=== PATIENT | female | born 1955 | race Caucasian/White ===

== ENCOUNTER → 2017-06-14 11:44 | Outpatient (CLI) | payer OTHER, SELFPAY ==
[2017-06-14 15:22] LABS: Absolute Lymphocyte Count 1.98 X10^3/ul (0.83-4.51); Absolute Neutrophil Count 4.8 X10^3/uL (2.0-7.7); Basophil# 0.03 X10^3/uL; Basophil% 0.4 % (0-1); Eosinophils% 2.6 % (0-5); Hematocrit 39.3 % (37-47); Hemoglobin 13.3 g/dl (12.0-15.0); Lymphocyte # 1.98 X10^3/ul (4.0); Lymphocyte % 25.7 % (19-41); Mean Corp Hgb Conc 33.8 g/gl (32-36); Mean Corpuscular Hgb 29.2 pg (27.0-32.0); Mean Corpuscular Volume 86.2 fL (81-99); Mean Platelet Vol. 10.5 fl (6.2-12.0); Monocyte# 0.72 X10^3/uL; Monocyte% 9.4 % (0-10); Neutrophil # 4.76 X10^3/uL (2.7-7.7); Neutrophil % 61.9 % (47-70); Platelet Count 338 K/mm3 (150-450); RBC Distribution Width CV 12.5 % (11.6-14.6); RBC Distribution Width SD 38.6 fl (35.1-43.9); Red Blood Count 4.56 M/mm3 (4.2-5.4); White Blood Count 7.7 K/mm3 (4.4-11.0)
[2017-06-14 15:23] LABS: POSITIVE COUNT NO; POSITIVE DIFFERENTIAL NO; POSITIVE MORPHOLOGY NO
[2017-06-14 15:47] LABS: AST(SGOT) 14 U/L (15-37); Alanine Aminotransfer ALT/SGPT 20 U/L (13-56); Albumin, Serum 3.6 g/dL (3.2-5.0); Alkaline Phosphatase 53 U/L (45-117); Anion Gap 9 (5-15); BUN 15 mg/dL (7-18); BUN/Creat Ratio 17.7 RATIO (10-20); Chloride 102 mmol/L (98-107); Creatinine, Serum 0.85 mg/dL (0.55-1.02); EST Glomerular Filtration Rate 72 mL/min (>60); Est Glom Filt Rate - Afr Amer 87 mL/min (>60); Globulin 3.5 g/dL (2.2-4.2); Glucose 87 mg/dL (74-106); Potassium 3.8 mmol/L (3.5-5.1); Protein, Total 7.1 g/dL (6.4-8.2); Sodium Level 139 mmol/L (136-145); Thyroid Stim Hormone (TSH) 0.78 uIU/mL (0.358-3.74)
[2017-06-15 08:23] LABS: Hep C Antibodies 0.2 s/co ratio (0.0-0.9)
[2017-06-15 11:58] LABS: Vitamin D,25 Hydroxy 25.9 ng/mL (29.95-100.01)
== END ==
PROVIDERS: Family Provider Family Medicine Geriatric Medicine; PCP Family Medicine Geriatric Medicine; Visit Provider Family Medicine Geriatric Medicine
DX: E55.9 Vitamin D deficiency, unspecified (principal); I10 Essential (primary) hypertension; Z13.89 Encounter for screening for other disorder
CPT/HCPCS: 36415; 80053; 82306; 84443; 85025; 86803

== ENCOUNTER → 2017-06-21 10:57 | Outpatient (CLI) | payer OTHER, SELFPAY ==
--- NOTE | 2017-06-21 11:01 | US_ITS ---
STUDY: THYROID ULTRASOUND REASON FOR EXAM: Female, 62 years old. History of thyroid nodules. TECHNIQUE: Ultrasound evaluation of the thyroid was performed with real-time and static jeter-scale imaging. COMPARISON: Comparison is made with prior study dated December 07, 2014. FINDINGS: RIGHT LOBE: The right lobe of the thyroid gland measures 4.5 cm x 1.8 cm x 1.4 cm. There is a homogeneous echotexture. There is a 5 mm x 5 mm x 5 mm well-defined hypoechoic solid nodule in the midpole of the right lobe. A 4 mm x 3 mm x 2 mm cyst is also seen within the right lobe. LEFT LOBE: The left lobe of the thyroid gland is enlarged and measures 6.2 cm x 3.9 cm x 2.2 cm. There is a heterogeneous echotexture. There is a 3.1 cm x 3.3 cm x 2.6 cm solid and cystic hypoechoic nodule in the midportion of the thyroid. This has increased in size as compared to prior study. An adjacent solid nodule measuring 2.6 cm x 2.0 cm x 2.0 cm is seen. ISTHMUS: The isthmus measures 3.0 mm. The regional lymph nodes are normal. US/Thyroid IMPRESSION: Enlargement of the left lobe of the thyroid with dominant nodules as described. Repeat biopsy is recommended. Electronically Signed: Mt Perdomo MD at 15:26 EDT Tel [phone], Service support ,
--- NOTE | 2017-06-21 12:41 | BI_ITS ---
MAMMOGRAPHY - BILATERAL SCREENING REASON FOR EXAM: Female, 62 years old. Routine annual screening examination. PERTINENT HISTORY: Non-contributory. Remote right excisional breast biopsy. TECHNIQUE: Digital bilateral breast nancy (3D mammographic acquisition) in the CC and MLO projections. 2-D mediolateral oblique (MLO) and craniocaudad (CC) views of both breasts were obtained. CAD: Full Field Digital Mammography with Computer Added Detection was performed. COMPARISON: Comparison is made with prior operative examination dated June 09, 2015. FINDINGS: Breast Composition: There are scattered areas of fibroglandular density. There is a 6.3 mm x 5.6 mm well-defined nodule in the anterior superior lateral portion of the right breast. This may represent a small cyst. This has increased in size as compared to prior study. Correlation with ultrasound is recommended. Stable small benign-appearing bilateral axillary lymph nodes. No other significant abnormalities are identified. BI/SCREENING MAMM (CAD), BILAT IMPRESSION: Mildly enlarged 6.3 mm x 5.6 mm well-defined nodule in the anterior superior lateral portion of her breast as described. Correlation with ultrasound recommended. ASSESSMENT CATEGORY: BIRADS Category 0: Incomplete. Need additional imaging evaluation. A letter regarding these results will be sent to the patient by the facility within 30 days. Approximately 10% of breast cancers are not detected by mammography. A normal mammogram should not delay biopsy of a clinically suspicious abnormality. [id number] Electronically Signed: Mt Perdomo MD at 8:30 EDT Tel [phone], Service support ,
== END ==
PROVIDERS: Family Provider Family Medicine Geriatric Medicine; PCP Family Medicine Geriatric Medicine; Visit Provider Family Medicine Geriatric Medicine
DX: E04.9 Nontoxic goiter, unspecified (principal); Z12.31 Encounter for screening mammogram for malignant neoplasm of breast
CPT/HCPCS: 76536; 77063; 77067

== ENCOUNTER → 2017-07-04 10:54 | Outpatient (CLI) | payer OTHER, SELFPAY ==
--- NOTE | 2017-07-04 10:55 | US_ITS ---
STUDY: ULTRASOUND BREAST - RIGHT REASON FOR EXAM: Female, 62 years old. Abnormal mammography. Mammography performed June 21, 2017 demonstrating a subcentimeter, well-defined nodule in the anterior superior lateral portion of the right breast thought to possibly represent a small cyst. TECHNIQUE: Axial and longitudinal images of the RIGHT breast were performed with a high resolution ultrasound transducer. COMPARISON: None. FINDINGS: RIGHT Breast: There is a 1.35 x 1.9 x 1.2 cm, ovoid, anechoic focus in the 10:00 position identified approximately 2 cm from the nipple. This finding does connect with multiple mildly dilated subareolar ducts. There is a 0.5 x 0.3 x 0.3 cm reniform focus in the 9:00 position 3 cm from the nipple. Most compatible with an intramammary lymph node. US/Breast Limited Unilateral IMPRESSION: 1.4 cm cyst in the 10:00 position 2 cm from the nipple connecting with multiple dilated subareolar ducts that appear in the 9-10 o'clock region. It is unclear as to whether this finding represents the mammographic finding. Therefore, recommend 3 month short interval mammographic and sonographic follow-up to document stability. 5 mm intramammary lymph node in the 9:00 position 3 cm from the nipple. ASSESSMENT CATEGORY: BIRADS Category 3: Probably Benign - Short-Interval Follow-up Suggested. A letter regarding these results will be sent to the patient by the facility within 30 days. Recommendation: Right breast, 3 month short interval mammographic and sonographic follow-up to document stability. Electronically Signed: Max Nicole MD at 13:17 EDT , Service support ,
== END ==
PROVIDERS: Family Provider Family Medicine Geriatric Medicine; PCP Family Medicine Geriatric Medicine; Visit Provider Family Medicine Geriatric Medicine
DX: R92.0 Mammographic microcalcification found on diagnostic imaging of breast (principal)
CPT/HCPCS: 76642

== ENCOUNTER → 2017-07-04 17:54 | Outpatient (CLI) | payer OTHER, SELFPAY ==
--- NOTE | 2017-07-04 14:00 | ASPS_PTH ---
PATIENT: ROMAN RODRIGUEZ LOC: [facility] U#:[id number] AGE/SX: 69/F ROOM: RE07/04/[address]: Dr. Alex Vazquez MD : 1955 BED: DIS: SPEC #: [id number] RECD: 07/04/17 17:29 STATUS: COLLEEN YELENA #: [id number] LILI: 07/04/17 14:[address]: Alex Vazquez DEPT: CYTOLOGY RECD BY: Ross Lr ENTERED: 07/05/17 08:47 SP TYPE: ASPIRATION OTHR DR: Dr. Alfa Kahn MD Tissues: A - Thyroid gland, NOS B - Thyroid gland, NOS Procedures: Pap Stain (control) Special Stain Group II Cytology Other HEADER OPERATION: Left thyroid FNA x2 PRE-OP DIAGNOSIS: Multiple thyroid nodules TISSUE SUBMITTED: A ? Left medial thyroid (6 slides), B ? Left lateral thyroid (8 slides) DIAGNOSIS CYTOLOGY A. Fine needle aspiration, left medial thyroid (smears): Adequate for evaluation. Negative, consistent with benign follicular nodule. B. Fine needle aspiration, left lateral thyroid nodule (smears): Adequate for evaluation. Negative, consistent with benign follicular nodule. AM:souleymane 07/06/17 CYTOLOGY STUDY Slides are reviewed. CYTOLOGY GROSS A - Received are six smears labeled with the patient's name and designated per the requisition as left medial thyroid. Submitted for staining. B - Received are eight smears labeled with the patient's name and designated per the requisition as left lateral thyroid. Submitted for staining. 07/05/17 TC:5 CPT: 04627 x2
== END ==
PROVIDERS: Family Provider Family Medicine Geriatric Medicine; PCP Family Medicine Geriatric Medicine; Visit Provider Surgery
DX: E04.2 Nontoxic multinodular goiter (principal)
CPT/HCPCS: 88161; 88313

== ENCOUNTER → 2017-10-12 09:28 | Outpatient (CLI) | payer OTHER, SELFPAY ==
--- NOTE | 2017-10-12 09:31 | BI_ITS ---
Digital unilateral mammogram right breast with CAD and amandeep Clinical statement: Right breast excisional biopsy in 2008. Abnormal screening mammogram. Right breast mass. Evaluate. Technique: Digital CC and MLO views of the right breast were performed utilizing CAD and amandeep sequences Comparison studies: Mammogram dated 06/21/2017 and 06/09/2015. Findings: There are masses noted in the right breast. They do persist on today's study. Further workup with ultrasound is indicated. CAD images were reviewed. Amandeep images were reviewed. IMPRESSION: BIRADS category A/0 assessment incomplete. There are masses in the right breast. Further workup with ultrasound is recommended. Electronically Signed: Talya Alberto DO at 15:16 EDT Tel , Service support , BI/DIAG MAMM W/CAD, UNILAT
--- NOTE | 2017-10-12 09:32 | US_ITS ---
STUDY: ULTRASOUND BREAST - RIGHT REASON FOR EXAM: Female, 62 years old. ] Masses. Abnormal mammogram. Evaluate. TECHNIQUE: Axial and longitudinal images of the RIGHT breast were performed with a high resolution ultrasound transducer. COMPARISON: Mammograms dated October 12, 2017 and June 21, 2017 FINDINGS: RIGHT Breast: There are tortuous and ectatic ducts in the right breast retroareolar region. There is a benign-appearing hypoechoic mass at the 9:00 position measuring 7 x 5 x 3 mm. This has a central echogenic component and is most compatible with an intramammary lymph node. There is a cyst identified in the retroareolar region at the 9:00 position measuring 18 x 16 x 12 mm. No suspicious solid masses are seen to suggest malignancy. US/Breast Limited Unilateral IMPRESSION: BIRADS category P/3. Probably benign findings. The solid mass is most compatible with an intramammary lymph node however a short-term six-month follow-up ultrasound and mammogram are recommended to document stability. It may be of value to have the cyst aspirated. It appears to possibly be connected to a duct. ASSESSMENT CATEGORY: BIRADS Category 3: Probably Benign - Short-Interval Follow-up Suggested. A letter regarding these results will be sent to the patient by the facility within 30 days. Electronically Signed: Talya Alberto DO at 15:19 EDT Tel , Service support ,
== END ==
PROVIDERS: Family Provider Family Medicine Geriatric Medicine; PCP Family Medicine Geriatric Medicine; Visit Provider Family Medicine Geriatric Medicine
DX: N64.89 Other specified disorders of breast (principal)
CPT/HCPCS: 76642; 77061; 77065; G0279

== ENCOUNTER → 2018-03-22 09:36 | Outpatient (CLI) | payer OTHER, SELFPAY ==
[2018-03-22 12:47] LABS: Absolute Lymphocyte Count 1.67 X10^3/ul (0.83-4.51); Basophil# 0.01 X10^3/uL; Basophil% 0.2 % (0-1); Eosinophil# 0.15 X10^3/uL; Eosinophils% 2.4 % (0-5); Hematocrit 40.8 % (37-47); Hemoglobin 13.6 g/dl (12.0-15.0); Lymphocyte # 1.67 X10^3/ul (4.0); Lymphocyte % 26.5 % (19-41); Mean Corp Hgb Conc 33.3 g/gl (32-36); Mean Corpuscular Hgb 28.8 pg (27.0-32.0); Mean Corpuscular Volume 86.3 fL (81-99); Mean Platelet Vol. 10.1 fl (6.2-12.0); Monocyte# 0.48 X10^3/uL; Monocyte% 7.6 % (0-10); Neutrophil % 63.3 % (47-70); Platelet Count 308 K/mm3 (150-450); Red Blood Count 4.73 M/mm3 (4.2-5.4); White Blood Count 6.3 K/mm3 (4.4-11.0)
[2018-03-22 12:50] LABS: POSITIVE COUNT NO; POSITIVE DIFFERENTIAL NO; POSITIVE MORPHOLOGY NO
[2018-03-22 13:13] LABS: Vitamin D,25 Hydroxy 19.6 ng/mL (29.95-100.01)
[2018-03-22 13:15] LABS: AST(SGOT) 14 U/L (15-37); Alanine Aminotransfer ALT/SGPT 25 U/L (13-56); Albumin, Serum 3.5 g/dL (3.2-5.0); Alkaline Phosphatase 55 U/L (45-117); Anion Gap 11 (5-15); BUN 18 mg/dL (7-18); BUN/Creat Ratio 19.9 RATIO (10-20); Calcium,Total 9.1 mg/dL (8.5-10.1); Chloride 104 mmol/L (98-107); Creatinine, Serum 0.91 mg/dL (0.55-1.02); EST Glomerular Filtration Rate 67 mL/min (>60); Est Glom Filt Rate - Afr Amer 81 mL/min (>60); Globulin 3.5 g/dL (2.2-4.2); Glucose 115 mg/dL (74-106); Potassium 3.8 mmol/L (3.5-5.1); Sodium Level 141 mmol/L (136-145); Thyroid Stim Hormone (TSH) 0.78 uIU/mL (0.358-3.74)
== END ==
PROVIDERS: Family Provider Family Medicine Geriatric Medicine; PCP Family Medicine Geriatric Medicine; Visit Provider Family Medicine Geriatric Medicine
DX: E55.9 Vitamin D deficiency, unspecified (principal); I10 Essential (primary) hypertension
CPT/HCPCS: 36415; 80053; 82306; 84443; 85025

== ENCOUNTER → 2018-04-25 15:58 | Outpatient (CLI) | payer OTHER, SELFPAY ==
[2017-06-26 15:11] VITALS: BMI 33.7
[2018-04-25 17:00] LABS: Absolute Lymphocyte Count 0.92 X10^3/ul (0.83-4.51); Absolute Neutrophil Count 9.2 X10^3/uL (2.0-7.7); Basophil# 0.01 X10^3/uL; Basophil% 0.1 % (0-1); Hematocrit 40.8 % (37-47); Hemoglobin 13.5 g/dl (12.0-15.0); Lymphocyte # 0.92 X10^3/ul (4.0); Lymphocyte % 8.9 % (19-41); Mean Corp Hgb Conc 33.1 g/gl (32-36); Mean Corpuscular Hgb 28.5 pg (27.0-32.0); Mean Corpuscular Volume 86.1 fL (81-99); Monocyte# 0.18 X10^3/uL; Monocyte% 1.7 % (0-10); Neutrophil # 9.16 X10^3/uL (2.7-7.7); Neutrophil % 89.1 % (47-70); POSITIVE COUNT NO; POSITIVE DIFFERENTIAL NO; POSITIVE MORPHOLOGY NO; Platelet Count 315 K/mm3 (150-450); RBC Distribution Width CV 12.9 % (11.6-14.6); RBC Distribution Width SD 40.6 fl (35.1-43.9); Red Blood Count 4.74 M/mm3 (4.2-5.4); White Blood Count 10.3 K/mm3 (4.4-11.0)
--- NOTE | 2018-04-25 17:17 | RAD_ITS ---
STUDY: X-RAY - ABDOMEN/PELVIS REASON FOR EXAM: Female, 62 years old. Abdominal pain and chills TECHNIQUE: Two AP supine views of the abdomen and pelvis. COMPARISON: None. FINDINGS: Normal visualized lung bases. There is an unremarkable bowel gas pattern. There is no demonstrated free abdominal air. The visualized liver, spleen and kidneys are grossly normal in size and morphology. Normal soft tissue structures. There are diffuse degenerative changes of the visualized thoracolumbar spine. RAD/Abdomen Single View IMPRESSION: There is no evidence of ileus or obstruction. There are diffuse degenerative changes of the visualized thoracolumbar spine. Electronically Signed: Cody Holman MD at 17:46 EST , Service support ,
--- NOTE | 2018-04-25 17:25 | RAD_ITS ---
STUDY: X-RAY CHEST REASON FOR EXAM: Female, 62 years old. Chills, no fever TECHNIQUE: PA and lateral views of the chest. COMPARISON: None. FINDINGS: There are streaky fibrotic or atelectatic changes of the right lung base. There is no demonstrated pleural abnormality. Normal size heart. Normal mediastinum and vijay. Normal visualized pulmonary arteries. There are calcified plaques of the aortic arch. There are diffuse degenerative changes of the visualized thoracic spine. Normal visualized ribs, clavicles, and shoulders. There is no demonstrated abnormality of the visualized soft tissue structures of the upper abdomen. RAD/Chest PA and Lateral IMPRESSION: Streaky fibrotic or atelectatic changes of the right lung base. Calcified plaques of the aortic arch. Degenerative changes of the thoracic spine. Electronically Signed: Cody Holman MD at 17:48 EST , Service support ,
[2018-04-25 17:30] LABS: AST(SGOT) 16 U/L (15-37); Alanine Aminotransfer ALT/SGPT 23 U/L (13-56); Albumin, Serum 3.2 g/dL (3.2-5.0); Alkaline Phosphatase 46 U/L (45-117); Anion Gap 10 (5-15); BUN 13 mg/dL (7-18); BUN/Creat Ratio 17.6 RATIO (10-20); Calcium,Total 8.4 mg/dL (8.5-10.1); Chloride 112 mmol/L (98-107); Creatinine, Serum 0.74 mg/dL (0.55-1.02); EST Glomerular Filtration Rate 84 mL/min (>60); Est Glom Filt Rate - Afr Amer 102 mL/min (>60); Globulin 3.1 g/dL (2.2-4.2); Glucose 100 mg/dL (74-106); Protein, Total 6.3 g/dL (6.4-8.2); Sodium Level 144 mmol/L (136-145)
== END ==
LOC: POLAB3 15:58 → RAD 17:14
PROVIDERS: Family Provider Family Medicine Geriatric Medicine; PCP Family Medicine Geriatric Medicine; Referring Provider Family Medicine Geriatric Medicine; Visit Provider Family Medicine Geriatric Medicine
DX: R10.9 Unspecified abdominal pain (principal); R68.83 Chills (without fever)
CPT/HCPCS: 36415; 71046; 74018; 80053; 85025; 87086; 87633

== ENCOUNTER → 2018-04-26 11:14 | Outpatient (CLI) | payer OTHER, SELFPAY ==
[2017-06-26 15:11] VITALS: BMI 33.7
== END ==
PROVIDERS: Family Provider Family Medicine Geriatric Medicine; PCP Family Medicine Geriatric Medicine; Visit Provider Family Medicine Geriatric Medicine
DX: R19.7 Diarrhea, unspecified (principal)
CPT/HCPCS: 82274; 83630; 87506

== ENCOUNTER → 2018-11-07 | Outpatient (CLI) | payer OTHER, SELFPAY ==
--- NOTE | 2018-11-07 12:32 | BI_ITS ---
MAMMOGRAPHY - BILATERAL SCREENING REASON FOR EXAM: Female, 63 years old. Routine annual screening examination. PERTINENT HISTORY: Non-contributory. Remote right excisional breast biopsy. TECHNIQUE: Digital bilateral breast uri (3D mammographic acquisition) in the CC and MLO projections. 2-D mediolateral oblique (MLO) and craniocaudad (CC) views of both breasts were obtained. CAD: Full Field Digital Mammography with Computer Added Detection was performed. COMPARISON: Comparison is made with prior mammogram dated June 21, 2017 and October 12, 2017. FINDINGS: Breast Composition: The breasts are heterogeneously dense, which may obscure small masses. There are no dominant masses or suspicious calcifications. Stable 4.3 mm defined nodule in the superior lateral retroareolar region of the right breast. This is unchanged. No other significant abnormalities are identified. There has been no significant change since the prior study. BI/SCREEN MAMM (CAD) W/URI BILAT IMPRESSION: Stable bilateral screening mammogram. Yearly follow-up mammogram recommended. (A) ASSESSMENT CATEGORY: BIRADS Category 2: Benign. A letter regarding these results will be sent to the patient by the facility within 30 days. Approximately 10% of breast cancers are not detected by mammography. A normal mammogram should not delay biopsy of a clinically suspicious abnormality. [id number] Electronically Signed: Mt Perdomo, at 13:24 EDT , Service support ,
== END | disposition home or self-care (01) ==
LOC: OPBI 12:30
PROVIDERS: Family Provider Family Medicine; PCP Family Medicine; Referring Provider Family Medicine; Visit Provider Family Medicine
DX: Z12.31 Encounter for screening mammogram for malignant neoplasm of breast (principal)
CPT/HCPCS: 77063; 77067

== ENCOUNTER → 2019-09-04 11:10 | Outpatient (CLI) | payer OTHER, SELFPAY ==
[2019-09-04 15:13] LABS: Absolute Neutrophil Count 5.4 X10^3/uL (2.0-7.7); Basophil# 0.03 X10^3/uL; Basophil% 0.4 % (0-1); Eosinophil# 0.23 X10^3/uL; Eosinophils% 2.7 % (0-5); Hematocrit 40.4 % (37-47); Hemoglobin 13.4 g/dL (12.0-15.0); Lymphocyte % 24.5 % (19-41); Mean Corp Hgb Conc 33.2 g/dL (32-36); Mean Corpuscular Hgb 29.3 pg (27.0-32.0); Mean Corpuscular Volume 88.4 fL (81-99); Mean Platelet Vol. 9.8 fl (6.2-12.0); Monocyte# 0.77 X10^3/uL; NRBC Flagged by Analyzer 0 % (0-5); Platelet Count 364 K/mm3 (150-450); RBC Distribution Width CV 13.1 % (11.6-14.6); RBC Distribution Width SD 41.6 fl (35.1-43.9); Red Blood Count 4.57 M/mm3 (4.2-5.4); White Blood Count 8.6 K/mm3 (4.4-11.0)
[2019-09-04 15:39] LABS: Vitamin D,25 Hydroxy 19.8 ng/mL
[2019-09-04 15:57] LABS: ALB/GLOB Ratio 0.9 RATIO (0.9-2.4); AST(SGOT) 19 U/L (15-37); Alanine Aminotransfer ALT/SGPT 35 U/L (13-56); Albumin, Serum 3.7 g/dL (3.2-5.0); Alkaline Phosphatase 72 U/L (45-117); Anion Gap 9 (5-15); BUN 23 mg/dL (7-18); BUN/Creat Ratio 27.2 RATIO (10-20); Calcium,Total 9.5 mg/dL (8.5-10.1); Chloride 101 mmol/L (98-107); Creatinine, Serum 0.85 mg/dL (0.55-1.02); EST Glomerular Filtration Rate 72 mL/min (>60); Est Glom Filt Rate - Afr Amer 87 mL/min (>60); Globulin 3.9 g/dL (2.2-4.2); Glucose 85 mg/dL (74-106); Magnesium 1.8 mg/dL (1.6-2.6); Potassium 3.8 mmol/L (3.5-5.1); Protein, Total 7.6 g/dL (6.4-8.2); Sodium Level 138 mmol/L (136-145); Thyroid Stim Hormone (TSH) 0.97 uIU/mL (0.358-3.74)
[2019-09-04 17:14] LABS: Hemoglobin A1c 5.7 % (3.8-5.6)
== END ==
PROVIDERS: PCP Family Medicine; Visit Provider Family Medicine
DX: R51 Headache (principal); I10 Essential (primary) hypertension; R63.5 Abnormal weight gain
CPT/HCPCS: 36415; 80053; 82306; 83036; 83735; 84443; 85025

== ENCOUNTER → 2019-10-23 14:57 | Outpatient (CLI) | payer OTHER, SELFPAY ==
[2019-10-23 17:10] LABS: Vitamin D,25 Hydroxy 25.7 ng/mL
[2019-10-28 15:26] LABS: HPV Reflexed? NOT INDICATED
== END ==
PROVIDERS: PCP Family Medicine; Visit Provider Family Medicine
DX: Z01.419 Encounter for gynecological examination (general) (routine) without abnormal findings (principal); E55.9 Vitamin D deficiency, unspecified
CPT/HCPCS: 36415; 82306; 88175; G0145

== ENCOUNTER → 2019-11-27 10:54 | Outpatient (CLI) | payer OTHER, SELFPAY ==
--- NOTE | 2019-11-27 10:55 | BI_ITS ---
MAMMOGRAPHY - BILATERAL SCREENING REASON FOR EXAM: Female, 64 years old. Routine annual screening examination. PERTINENT HISTORY: Non-contributory. Remote right excisional breast biopsy. TECHNIQUE: Digital bilateral breast uri (3D mammographic acquisition) in the CC and MLO projections. 2-D mediolateral oblique (MLO) and craniocaudad (CC) views of both breasts were obtained. CAD: Full Field Digital Mammography with Computer Added Detection was performed. COMPARISON: Comparison is made with prior study dated 11/07/2018 and 06/21/2017. FINDINGS: Breast Composition: The breasts are heterogeneously dense, which may obscure small masses. There are no dominant masses or suspicious calcifications. Stable 4.3 mm well-defined nodule in the superior lateral retroareolar region of the right breast. No other significant abnormalities are identified. There has been no significant change since the prior study. BI/SCREEN MAMM (CAD) W/URI BILAT IMPRESSION: Stable bilateral screening mammogram. Yearly follow-up mammogram recommended. (A) ASSESSMENT CATEGORY: BIRADS Category 2: Benign. A letter regarding these results will be sent to the patient by the facility within 30 days. Approximately 10% of breast cancers are not detected by mammography. A normal mammogram should not delay biopsy of a clinically suspicious abnormality. [id number] Electronically Signed: Mt Perdomo, at 12:18 EDT , Service support ,
== END ==
PROVIDERS: PCP Family Medicine; Referring Provider Family Medicine; Visit Provider Family Medicine
DX: Z12.31 Encounter for screening mammogram for malignant neoplasm of breast (principal)
CPT/HCPCS: 77063; 77067

== ENCOUNTER → 2020-11-05 09:33 | Outpatient (CLI) | payer MEDICARE, OTHER, SELFPAY ==
--- NOTE | 2020-11-05 09:59 | RAD_ITS ---
STUDY: X-RAY - RIGHT KNEE REASON FOR EXAM: Female, 65 years old. PAIN, DEFORMITY TECHNIQUE: 4 view(s) of the knee. COMPARISON: Comparison is made with prior study dated 02/08/2017. FINDINGS: Normal visualized distal femur. Normal visualized proximal tibia and fibula. Normal proximal tibiofibular articulation. There is severe degenerative arthrosis of the medial femorotibial compartment with severe joint space narrowing. Normal lateral femorotibial compartment. There is mild degenerative arthrosis of the patellofemoral articulation. The soft tissue structures are unremarkable. RAD/Knee 4 or More Views IMPRESSION: Marked degree of joint space narrowing and degenerative changes of the medial compartment of the knee joint. Mild degree of joint space narrowing of the patellofemoral joint. Electronically Signed: Mt Perdomo MD at 10:25 EDT , Service support ,
[2020-11-05 10:33] LABS: Absolute Lymphocyte Count 2.12 X10^3/uL (0.83-4.51); Absolute Neutrophil Count 4.7 X10^3/uL (2.0-7.7); Basophil# 0.05 X10^3/uL; Basophil% 0.6 % (0-1); Eosinophil# 0.25 X10^3/uL; Eosinophils% 3.2 % (0-5); Hematocrit 42.2 % (37-47); Lymphocyte # 2.12 X10^3/ul (0.83-4.51); Lymphocyte % 27.1 % (19-41); Mean Corp Hgb Conc 33.2 g/dL (32-36); Mean Corpuscular Hgb 28.4 pg (27.0-32.0); Mean Corpuscular Volume 85.6 fL (81-99); Mean Platelet Vol. 9.6 fl (6.2-12.0); Monocyte# 0.68 X10^3/uL; Monocyte% 8.7 % (0-10); NRBC Flagged by Analyzer 0 % (0-5); Neutrophil # 4.69 X10^3/uL (2.7-7.7); Neutrophil % 60.1 % (47-70); Platelet Count 360 K/mm3 (150-450); RBC Distribution Width CV 13.1 % (11.6-14.6); RBC Distribution Width SD 41.1 fl (35.1-43.9); Red Blood Count 4.93 M/mm3 (4.2-5.4); White Blood Count 7.8 K/mm3 (4.4-11.0)
[2020-11-05 11:01] LABS: ALB/GLOB Ratio 0.9 RATIO (0.9-2.4); AST(SGOT) 15 U/L (15-37); Alanine Aminotransfer ALT/SGPT 27 U/L (13-56); Albumin, Serum 3.6 g/dL (3.2-5.0); Alkaline Phosphatase 68 U/L (45-117); Anion Gap 3 (5-15); BUN 17 mg/dL (7-18); BUN/Creat Ratio 20.3 RATIO (10-20); Calcium,Total 9.3 mg/dL (8.5-10.1); Chloride 104 mmol/L (98-107); Cholesterol 217 mg/dL (200); Creatinine, Serum 0.84 mg/dL (0.55-1.02); EST Glomerular Filtration Rate 72 mL/min (>60); Est Glom Filt Rate - Afr Amer 88 mL/min (>60); Glucose 102 mg/dL (74-106); High Density Lipoprotein 48 mg/dL; Potassium 4.1 mmol/L (3.5-5.1); Protein, Total 7.6 g/dL (6.4-8.2); Sodium Level 138 mmol/L (136-145); Triglycerides 203 mg/dL; Very Low Density Lipoprotein 41 mg/dL (5-40)
[2020-11-05 11:03] LABS: Hemoglobin A1c 5.8 % (3.8-5.6); Vitamin D,25 Hydroxy 47.2 ng/mL
== END ==
PROVIDERS: PCP Family Medicine; Referring Provider Family Medicine; Visit Provider Family Medicine
DX: M25.561 Pain in right knee (principal); E55.9 Vitamin D deficiency, unspecified; I10 Essential (primary) hypertension; E78.5 Hyperlipidemia, unspecified; R73.01 Impaired fasting glucose
CPT/HCPCS: 36415; 73564; 80053; 80061; 82306; 83036; 85025

== ENCOUNTER 2020-12-28 16:56 | Emergency (ER) | payer MEDICARE, OTHER, SELFPAY ==
[2020-12-28 16:58] VITALS: BP 141/72; PULSE 81; RESP 18; TEMP 36.9; O2SAT 97; BMI 39.1
[2020-12-28 18:11] LABS: Absolute Lymphocyte Count 1.64 X10^3/uL (0.83-4.51); Absolute Neutrophil Count 8.6 X10^3/uL (2.0-7.7); Basophil# 0.04 X10^3/uL; Basophil% 0.3 % (0-1); Eosinophil# 0.19 X10^3/uL; Eosinophils% 1.6 % (0-5); Hematocrit 38.4 % (37-47); Hemoglobin 13.5 g/dL (12.0-15.0); Lymphocyte # 1.64 X10^3/ul (0.83-4.51); Lymphocyte % 14.2 % (19-41); Mean Corp Hgb Conc 35.2 g/dL (32-36); Mean Corpuscular Hgb 29.4 pg (27.0-32.0); Mean Corpuscular Volume 83.7 fL (81-99); Mean Platelet Vol. 9.3 fl (6.2-12.0); Monocyte# 1.01 X10^3/uL; Monocyte% 8.8 % (0-10); NRBC Flagged by Analyzer 0 % (0-5); Neutrophil # 8.61 X10^3/uL (2.7-7.7); Neutrophil % 74.8 % (47-70); Platelet Count 364 K/mm3 (150-450); RBC Distribution Width CV 13.1 % (11.6-14.6); RBC Distribution Width SD 39.8 fl (35.1-43.9); Red Blood Count 4.59 M/mm3 (4.2-5.4); White Blood Count 11.5 K/mm3 (4.4-11.0)
[2020-12-28 18:26] LABS: Bacteria 0 SEEN /hpf (None Seen); Mucous, Urine 0 SEEN /hpf (<or=2+); Red Blood Cells-Urine 0 SEEN /hpf (0-5)
[2020-12-28 18:28] LABS: Color, Urine Yellow (Yellow); Glucose, Dipstick Normal (Normal); Ketone-Dipstick Negative (Negative); Leukocyte Esterase-Dipstick 100 /ul (Negative); Nitrite-Dipstick Negative (Negative); Occult Blood-Urine Negative /ul (Negative); Protein-Dipstick Negative (Negative); Urine Bilirubin Dipstick Negative (Negative); Urine Clarity Clear (Clear); Urine Urobilinogen Normal (Normal); Urine pH 6.5 (5.0 - 8.0)
[2020-12-28 18:29] LABS: Anion Gap 7 (5-15); BUN 11 mg/dL (7-18); BUN/Creat Ratio 12.9 RATIO (10-20); Calcium,Total 8.9 mg/dL (8.5-10.1); Chloride 103 mmol/L (98-107); Creatinine, Serum 0.86 mg/dL (0.55-1.02); EST Glomerular Filtration Rate 71 mL/min (>60); Est Glom Filt Rate - Afr Amer 86 mL/min (>60); Estimated Creatinine Clearance 53.95 ml/min; Glucose 140 mg/dL (74-106); Potassium 3.5 mmol/L (3.5-5.1); Sodium Level 137 mmol/L (136-145)
[2020-12-28 18:38] LABS: Squamous Epithelial Cells - UA 0-5 SEEN /hpf (5-10); White Blood Cells 0-5 SEEN /hpf (0-5)
--- NOTE | 2020-12-28 19:49 | CT_ITS ---
We are attempting to reach an attending provider to discuss findings. An addendum with communication details will be sent when the communication is complete. STUDY: CT ABDOMEN AND PELVIS WITH CONTRAST REASON FOR EXAM: Female, 65 years old. LLQ pain RADIATION DOSAGE (If Supplied By Facility): CTDIvol = ( 18.97 ) mGy, DLP = ( 2178.86 ) mGycm TECHNIQUE: Transaxial images were obtained from the dome of the diaphragm to the symphysis pubis without oral contrast. IV 100mL Isovue-370 was administered. Sagittal and coronal images were reconstructed. Individualized dose optimization techniques were used for this CT. COMPARISON: None. FINDINGS: The visualized lung bases are unremarkable. The visualized portions of the heart are within normal limits. Normal liver. There are multiple gallstones. Normal spleen. Normal pancreas. Normal bilateral adrenal glands. There is 19.4 x 14.3 cm enhancing mass at the anterior aspect of the right kidney. There is central diminished density region with focal calcifications. Normal left kidney. Normal visualized stomach. Normal small intestine. There is diverticulosis, with thickening of the distal descending colon wall, and left lower quadrant pericolonic inflammation changes consistent with acute diverticulitis. There is non-visualization of the appendix. There is atherosclerotic calcification of the abdominal aorta, without a demonstrated aneurysm. Normal inferior vena cava. Normal retroperitoneum. Normal urinary bladder. Normal visualized uterus. There is no free fluid in the abdomen or pelvis. There is a small umbilical hernia containing fat. There are diffuse degenerative changes of the visualized lumbar spine. CT/Abdomen/Pelvis W IV Cont ONLY IMPRESSION: Diverticulitis in the left lower quadrant. No obstruction or abscess. Large mass of the right kidney compatible with neoplasm such as renal cell carcinoma. Multiple gallstones. No biliary dilatation. Electronically Signed: Phong White MD at 21:36 EDT , Service support ,
[2020-12-28] MEDS: Ketorolac 30 MG/ML Syringe IV (20:57)
[2020-12-28] MEDS: 0.9% Normal Saline 1,000 ML 999 ML IV (20:57)
--- NOTE | 2020-12-28 23:02 | EX.ED.DYSGE1 ---
HPI History of Present Illness Chief Complaint: Abd Pain Narrative Narrative: Patient is a 65-year-old female who states over the past 2 to 3 days she has had increasing pain in the left lower abdomen. She does report she had 1 day of loose stool but otherwise denies any diarrhea or constipation. She states that she has had no fevers or chills and she reports her last colonoscopy about 5 years ago did not show any clinically significant finding. She states that with the worsening pain she is concerned she may have an infection and therefore presents for evaluation [facility] Medical History Hemorrhoids Hypertension Nodular thyroid disease Sleep apnea Sleep apnea Thyroid nodule Home Medications ascorbic acid (vitamin C) 500 mg capsule,extended release 500 mg PO QDAY 06/26/17 [History Last Taken Unknown] lisinopril 10 mg tablet 10 mg PO QDAY 06/26/17 [History Last Taken Unknown] omega-3 fatty acids 1,000 mg capsule 2,000 mg PO QDAY cap 06/26/17 [History Last Taken Unknown] amoxicillin-pot clavulanate [Augmentin] 1 tab PO BID #20 tab 12/28/20 [Rx Last Taken Unknown] cholecalciferol (vitamin D3) [Vitamin D3] 25 mcg PO DAILY 12/28/20 [History Last Taken Unknown] hydrocodone-acetaminophen 1 tab PO Q6H PRN 3 Days #12 tab 12/28/20 [Rx Last Taken Unknown] ondansetron HCl [Zofran] 4 mg PO Q8H PRN #21 tab 12/28/20 [Rx Last Taken Unknown] Allergy/AdvReac Type Severity Reaction Status Date / Time No Known Allergies Allergy Verified 12/28/20 16:57 Family History Mother Colon cancer Hypertension Father Diabetes Surgical History history excision right breast lump S/P thyroid biopsy Social History (Updated 07/04/17 @ 14:[address] Alex Vazquez MD) Smoking Status: Never smoker alcohol intake: never substance use type: does not use ROS ROS ED Constitutional Constitutional ED: Denies chills or fever(s) ENT ENT ED: Denies sore throat Cardiovascular Cardiovascular: Denies chest pain Respiratory/Chest Respiratory/Chest: Denies cough or dyspnea Gastrointestinal Gastrointestinal: Reports abdominal pain and diarrhea; Denies nausea or vomiting Genitourinary Genitourinary ED: Denies dysuria Musculoskeletal Musculoskeletal: Denies myalgias Integumentary Denies rash Neurologic Neurologic: Denies headache(s) Hematologic/Lymphatic Hematologic/Lymphatic: Denies easy bleeding or easy bruising EXAM Physical Exam Const Vital Signs: 12/28/20 16:58 Temperature 98.4 F Temperature Source Temporal Pulse Rate 81 Respiratory Rate 18 Blood Pressure 141/72 H Blood Pressure Mean 95 Pulse Ox 97 Oxygen Delivery Method Room Air Positive well nourished and well developed General Appearance ED: well developed HEENT Reports moist mucous membranes Eyes PERRL and EOMs intact bilaterally Neck supple Resp normal respiratory effort and clear to auscultation bilaterally Cardio regular rate and regular rhythm GI non-distended GI Narrative: Obese soft and nondistended with normoactive bowel sounds. There is pain with palpation in the left lower quadrant with slight guarding at the site but no rebound or rigidity. No pulsatile mass Auscultation: normoactive bowel sounds Palpation: soft Back/Spine no CVA tenderness Extremity normal to inspection Neuro oriented x3 and CN's II-XII intact bilaterally Sensorium / Orientation: alert Psych mental status grossly normal Skin no rashes or lesions noted MDM MDM MDM Narrative Medical decision making narrative: Patient presented to the ER afebrile but did have a slight white count and with pain in left lower quadrant there is concern for diverticulitis. A CT was added which did confirm acute diverticulitis without perforation or abscess. However also noticed a large right renal mass concerning for renal cell carcinoma. Patient states she does not have a history of this. Therefore she was notified/informed of the mass and the need to have further testing to assess its cancers possibility. However as she does not have acute kidney injury or signs of infection associated with this she does not need to be admitted and can be discharged and have this work-up done on outpatient basis Lab Data Attestation: I reviewed the patient's lab results. Labs: Laboratory Results - last 24 hr 12/28/20 12/28/20 12/28/20 17:45 17:45 Unknown WBC 11.5 H RBC 4.59 Hgb 13.5 Hct 38.4 MCV 83.7 MCH 29.4 MCHC 35.2 RDW Std Deviation 39.8 RDW Coeff of Heri 13.1 Plt Count 364 MPV 9.3 Immature Gran % (Auto) 0.300 Neut % (Auto) 74.8 H Lymph % (Auto) 14.2 L [place] % (Auto) 8.8 Eos % (Auto) 1.6 Baso % (Auto) 0.3 Absolute Neuts (auto) 8.6 H Absolute Lymphs (auto) 1.64 Nucleated RBC % 0 Sodium 137 Potassium 3.5 Chloride 103 Carbon Dioxide 27.0 Anion Gap 7 BUN 11 Creatinine 0.86 Estim Creat Clear Calc 53.95 Est GFR (MDRD) Af Amer 86 Est GFR (MDRD) Non-Af 71 BUN/Creatinine Ratio 12.9 Glucose 140 H Calcium 8.9 Urine Color Yellow Urine Clarity Clear Urine pH 6.5 Ur Specific [place] 1.010 Urine Protein Negative Urine Glucose (UA) Normal Urine Ketones Negative Urine Occult Blood Negative Urine Nitrite Negative Urine Bilirubin Negative Urine Urobilinogen Normal Ur Leukocyte Esterase 100 H Urine RBC 0 SEEN Urine WBC 0-5 SEEN Ur Squamous Epith Cells 0-5 SEEN Urine Bacteria 0 SEEN Urine Mucus 0 SEEN Radiography Diagnostic Testing: Clinical Impression(s) from Imaging Studies Abdomen/Pelvis CT 12/28/20 19:49 IMPRESSION: Diverticulitis in the left lower quadrant. No obstruction or abscess. Large mass of the right kidney compatible with neoplasm such as renal cell carcinoma. Multiple gallstones. No biliary dilatation. Electronically Signed: Phong White MD at 21:36 EDT , Service support , ADDENDUM: 12/28/20 2200 IMPRESSION: Diverticulitis in the left lower quadrant. No obstruction or abscess. Large mass of the right kidney compatible with neoplasm such as renal cell carcinoma. Multiple gallstones. No biliary dilatation. N.B. : The above Results were Read Back by Phong White MD to Dr. Dejuan Durant MD, and understanding confirmed on 12/28/2020 21:53:55 (ET). Electronically Signed: Phong White MD at 21:36 EDT , Service support , Discharge Plan Triage Chief Complaint: Abd Pain ED Provider: Dejuan Durant Dx/Rx/DC Orders Clinical Impression: Acute diverticulitis, Renal mass, right Instructions: What Is Kidney (Renal) Cancer?, ED Diverticulitis Prescriptions: New amoxicillin-pot clavulanate [Augmentin] 875-125 mg tablet 1 tab PO BID Qty: 20 RF: 0 ondansetron HCl [Zofran] 4 mg tablet 4 mg PO Q8H PRN (Reason: nausea and vomiting) Qty: 21 RF: 0 hydrocodone-acetaminophen 5-325 mg tablet 1 tab PO Q6H PRN (Reason: pain) 3 Days Qty: 12 RF: 0 No Action lisinopril 10 mg tablet 10 mg PO QDAY RF: 0 omega-3 fatty acids [Fish Oil Concentrate] 1,000 mg capsule 2,000 mg PO QDAY RF: 0 ascorbic acid (vitamin C) ER 500 mg capsule,extended release 500 mg capsule, extended release 500 mg PO QDAY RF: 0 cholecalciferol (vitamin D3) [Vitamin D3] 25 mcg (1,000 unit) Tablet 25 mcg PO DAILY RF: 0 Primary Care Provider: Nellie Rome Referrals: Nellie Rome MD [Primary Care Provider] - Oswaldo Jones MD [STAFF PHYSICIAN] - 1 Week (Renal mass) Disposition Disposition: Home, Self Care
[2020-12-28 23:16] VITALS: BP 123/73; PULSE 74; RESP 16; TEMP 36.2; O2SAT 98
--- NOTE | 2020-12-28 23:44 | ED.RN ---
Waiting on RX for pharm to fill
== END 2020-12-29 00:21 | disposition home or self-care (01) ==
PROVIDERS: Emergency Provider Emergency Medicine; PCP Family Medicine
DX: K57.92 Diverticulitis of intestine, part unspecified, without perforation or abscess without bleeding (principal); N28.89 Other specified disorders of kidney and ureter; E66.9 Obesity, unspecified; Z68.39 Body mass index [BMI] 39.0-39.9, adult; I10 Essential (primary) hypertension; E04.2 Nontoxic multinodular goiter; G47.30 Sleep apnea, unspecified; Z87.19 Personal history of other diseases of the digestive system; Z79.899 Other long term (current) drug therapy
CPT/HCPCS: 74177; 80048; 81001; 85025; 96361; 96365; 99284; J7030; J7050; Q9967; A4216

== ENCOUNTER → 2021-01-13 15:32 | Outpatient (CLI) | payer MEDICARE, OTHER, SELFPAY ==
--- NOTE | 2021-01-13 15:35 | BI_ITS ---
MAMMOGRAPHY - BILATERAL SCREENING REASON FOR EXAM: Female, 65 years old. Routine annual screening examination. PERTINENT HISTORY: Non-contributory. Remote right excisional breast biopsy. TECHNIQUE: Digital bilateral breast uri (3D mammographic acquisition) in the CC and MLO projections. 2-D mediolateral oblique (MLO) and craniocaudad (CC) views of both breasts were obtained. CAD: Full Field Digital Mammography with Computer Added Detection was performed. COMPARISON: Comparison is made with prior examination of 11/27/2019 and 11/07/2018. FINDINGS: Breast Composition: The breasts are heterogeneously dense, which may obscure small masses. There are no dominant masses or suspicious calcifications. Stable 4.4 mm well-defined nodule in the superior lateral retroareolar areolar region of the right breast. Stable benign-appearing bilateral axillary lymph nodes. No other significant abnormalities are identified. There has been no significant change since the prior study. BI/SCRN MAMM (CAD)W/URI BILAT IMPRESSION: Stable bilateral screening mammogram. Yearly follow-up mammogram recommended. (A) ASSESSMENT CATEGORY: BIRADS Category 2: Benign. A letter regarding these results will be sent to the patient by the facility within 30 days. Approximately 10% of breast cancers are not detected by mammography. A normal mammogram should not delay biopsy of a clinically suspicious abnormality. [id number] Electronically Signed: Mt Perdomo MD at 8:35 EDT , Service support ,
--- NOTE | 2021-01-13 15:36 | BD_ITS ---
STUDY: DUAL ENERGY X-RAY ABSORPTIOMETRY / DXA REASON FOR EXAM: Female, 65 years old. Post menopausal. Screening. TECHNIQUE: Bone Mineral Density (BMD) measurements of lumbar spine and bilateral hips were obtained. COMPARISON: None. FINDINGS: Lumbar Spine (L1-L4): g/cm2 (1.203) / T-score (2.0) / Z-score (3.7) Findings are suggestive of normal bone density with a low fracture risk. Left Femur Total: g/cm2 (1.195) / T-score (2.1) / Z-score (3.3) Left Femoral Neck: g/cm2 (1.043) / T-score (1.7) / Z-score (3.3) Right Femur Total: g/cm2 (0.985) / T-score (1.2) / Z-score (0.8) Right Femoral Neck: g/cm2 (1.111) / T-score (1.4) / Z-score (2.6) BD/Dexa Bone Density Study IMPRESSION: The patient is considered normal as outlined below according to World Toi Organization (WHO) criteria with a low fracture risk. Reference Information: The T-score is the number of standard deviations above or below the standard which is normal for young adults at their peak bone mineral density. The World Health Organization (WHO) interprets the T-scores as follows: Above -1 Normal bone density Between -1 and -2.5 Osteopenia Equal to / or below -2.5 Osteoporosis As a practical clinical guideline, osteopenia may be graded as follows: Mild -1 through -1.5 Moderate -1.6 through -2.0 Severe -2.1 through -2.4 The Z-score is the number of standard deviations above or below age-matched controls. A Z-score of less than -1.5 would be considered abnormal. References: 1. NIH Osteoporosis and Related Bone Diseases www osteo.org 2. International Society for Clinical Densitometry www iscd.org 3. National Osteoporosis Foundation www nof.org Electronically Signed: Derik Parikh DO at 19:05 EDT Tel [phone], Service support ,
== END ==
PROVIDERS: PCP Family Medicine; Referring Provider Family Medicine; Visit Provider Family Medicine
DX: Z12.31 Encounter for screening mammogram for malignant neoplasm of breast (principal); M81.0 Age-related osteoporosis without current pathological fracture
CPT/HCPCS: 77063; 77067; 77080

== ENCOUNTER 2021-02-09 05:30 | Inpatient (IN) | payer MEDICARE, OTHER, SELFPAY ==
--- NOTE | 2021-02-07 12:52 | RAD_ITS ---
STUDY: X-RAY CHEST REASON FOR EXAM: Female, 65 years old. RENAL MASS RIGHT -- PREOP TECHNIQUE: PA and lateral views of the chest. COMPARISON: Comparison is made with prior examination dated 04/25/2018. FINDINGS: Hyperinflation. There is no demonstrated pleural abnormality. Normal size heart. Normal mediastinum and vijay. Normal visualized pulmonary arteries. There is atherosclerotic calcification of the aortic arch with tortuosity. There are diffuse degenerative changes of the visualized thoracic spine. Normal visualized ribs, clavicles, and shoulders. There is no demonstrated abnormality of the visualized soft tissue structures of the upper abdomen. RAD/Chest PA and Lateral IMPRESSION: Hypoinflation. The lungs are clear. Electronically Signed: Mt Perdomo MD at 12:41 EST , Service support ,
[2021-02-07 13:46] LABS: Hematocrit 42.2 % (37-47); Hemoglobin 14.2 g/dL (12.0-15.0); Mean Corp Hgb Conc 33.6 g/dL (32-36); Mean Corpuscular Hgb 28.2 pg (27.0-32.0); Mean Corpuscular Volume 83.9 fL (81-99); Mean Platelet Vol. 9.3 fl (6.2-12.0); Platelet Count 417 K/mm3 (150-450); RBC Distribution Width CV 12.5 % (11.6-14.6); Red Blood Count 5.03 M/mm3 (4.2-5.4)
[2021-02-07 14:12] LABS: ALB/GLOB Ratio 0.9 RATIO (0.9-2.4); AST(SGOT) 14 U/L (15-37); Alanine Aminotransfer ALT/SGPT 21 U/L (13-56); Albumin, Serum 3.7 g/dL (3.2-5.0); Alkaline Phosphatase 59 U/L (45-117); Anion Gap 8 (5-15); BUN 18 mg/dL (7-18); BUN/Creat Ratio 20.7 RATIO (10-20); Calcium,Total 9.7 mg/dL (8.5-10.1); Chloride 101 mmol/L (98-107); Creatinine, Serum 0.87 mg/dL (0.55-1.02); EST Glomerular Filtration Rate 70 mL/min (>60); Est Glom Filt Rate - Afr Amer 84 mL/min (>60); Glucose 101 mg/dL (74-106); Potassium 3.6 mmol/L (3.5-5.1); Protein, Total 7.7 g/dL (6.4-8.2); Sodium Level 136 mmol/L (136-145)
[2021-02-09] VITALS (19 sets, daily range): BP systolic 86–133; BP diastolic 49–76; PULSE 52–82; RESP 16–18; TEMP 35.9–36.9; O2SAT 93–100; BMI 38.2
[2021-02-09] MEDS: Lactated Ringers 1,000 ML 15 ML IV ×6 (06:32→12:30)
--- NOTE | 2021-02-09 07:30 | KI_PTH ---
PATIENT: ROMAN RODRIGUEZ LOC: MS3 U#:[id number] AGE/SX: 65/F ROOM: AK311 RE02/09/[address]: Dr. Oswaldo Jones MD : 1955 BED: 1 DIS: 02/12/2021 SPEC #: [id number] RECD: 02/09/21 10:50 STATUS: COLLEEN KIRK #: [id number] LILI: 02/09/21 07:[address]: Oswaldo Jones DEPT: SURGICAL PATHOLOGY RECD BY: Bernice Ann ENTERED: 02/09/21 11:14 SP TYPE: KIDNEY BX OTHR DR: Dr. 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 Please see cancer summary in the comment section. SJ:rg 02/11/2021 COMMENT KIDNEY CANCER SUMMARY Procedure ? radical nephrectomy Specimen laterality ? right Tumor site ? entire kidney Tumor size ? 17 x 13 x 13 cm Histologic type ? chromophobe renal cell carcinoma Sarcomatoid features ? not identified Rhabdoid features - not identified Histologic grade - grade 2 Tumor necrosis - not identified Tumor extension ? tumor limited to kidney Margins ? margin uninvolved by invasive carcinoma Lymphvascular invasion - not identified Regional lymph nodes ? no lymph nodes submitted or found. Non-neoplastic kidney ? mild interstitial chronic inflammation. PATHOLOGIC STAGE: pT2b Nx Mx The above summary is in compliance with College of [place] [employer] (CAP) Cancer Protocols Checklist and [place] Joint Committee on Cancer (AJCC), Staging Manual, 8th Ed. MICROSCOPIC DESCRIPTION Slides are reviewed. GROSS DESCRIPTION Received in fixative is one container labeled with the patient's name and designated right kidney and mass. The specimen consists of a right kidney containing a mass and is surrounded by an irregular envelope of fibroadipose tissue. Neoplasm does not extend into the perirenal fat which measures up to 2 cm in thickness and is not present at the soft tissue line of the specimen. The specimen weighs 1720 gm and measures 21 x 19 x 13] cm. The mass involves almost 90% of the kidney and measures 17 x 13 x 13 cm. Dissection of the renal veins, particularly those draining the area of the mass does not show intravascular presence of neoplasm. On section, the tumorous mass is multinodular and composed of lennon-white solid tumor mass with focal yellowish area. Areas of hemorrhage, necrosis or softening are not seen. The tumor does not invade into pelviocalyceal system and renal sinus. The tumor is sharply demarcated from the renal parenchyma which appears unremarkable. Satellite nodules of tumor are not present in the renal tissue. The adrenal gland is not present. A 4 cm segment of attached ureter is noted which is essentially unremarkable. Sections of perirenal adipose tissue and renal sinus area do not reveal any obviously enlarged lymph nodes. / SJ:souleymane 02/09/21 Ornament Maker Hand sections are submitted in 12 cassettes as follows: 1 - ureter and vascular margin, 2??renal sinus tissue, renal pelvis and kidney, 3 - tumor with adjacent renal sinus tissue, 4 - uninvolved kidney, 5 - tumor with adjacent uninvolved renal parenchymal tissue, 6-11 - tumor, 12 - perirenal adipose tissue including inked resection margin. / SJ:souleymane 02/10/21 TC:0 CPT: 46956
[2021-02-09] MEDS: Cefazolin 2 GM in 0.9% Normal Saline 100 ML IV (07:33)
--- NOTE | 2021-02-09 07:43 | HP.PCM_ITS ---
HPI - General General Date of Admission: 02/09/21 HPI Narrative ROMAN RODRIGUEZ, is a 65 F who presents for a right radical nephrectomy she has a very large 20 cm mass on the right kidney very suspicious for tumorous growth there is no signs of metastatic disease Loretta proceed for a right radical nephrectomy. [facility]LY [facility] Medical History (Updated 02/09/21 @ 07:[address] Oswaldo Jones MD) Anxiety Arthritis Back pain CPAP (continuous positive airway pressure) dependence Heartburn Hemorrhoids History of diverticulitis History of pain when walking History of renal disease Hypertension Nodular thyroid disease Non-smoker Shortness of breath on exertion Sleep apnea Thyroid disease Thyroid nodule Wears glasses Home Medications omega-3 fatty acids 1,000 mg capsule 2,000 mg PO QDAY cap 06/26/17 [History Last Taken 02/08/21] Citlalli Rich 1 cap PO/SL DAILY 02/02/21 [History Last Taken 02/08/21] acetaminophen [Tylenol] 650 mg PO Q4H PRN 02/02/21 [History Last Taken Unknown] cholecalciferol (vitamin D3) [Vitamin D3] 125 mcg PO DAILY 02/02/21 [History Last Taken 02/08/21] lisinopril-hydrochlorothiazide 1 tab PO DAILY 02/02/21 [History Last Taken 02/08/21] docusate sodium [Colace] 100 mg PO BID #20 cap 02/09/21 [Rx Last Taken Unknown] oxycodone-acetaminophen 1 tab PO Q4H PRN 7 Days #20 tab 02/09/21 [Rx Last Taken Unknown] Allergy/AdvReac Type Severity Reaction Status Date / Time acetazolamide AdvReac DEPRESSION Verified 02/09/21 06:11 [From Diamox Sequels] duloxetine [From Cymbalta] AdvReac DEPRESSION Verified 02/09/21 06:11 tetracycline AdvReac DEPRESSION Verified 02/09/21 06:11 Family History Mother Colon cancer Hypertension Father Diabetes Surgical History (Updated 02/02/21 @ 11:06 by Solange Hicks) history excision right breast lump Hx of colonoscopy S/P thyroid biopsy Social History (Updated 07/04/17 @ 14:[address] Alex Vazquez MD) Smoking Status: Never smoker alcohol intake: never substance use type: does not use Vital Signs Vital Signs Vital Signs: 02/09/21 06:14 02/09/21 06:16 Temperature 98.4 F Temperature Source Temporal Pulse Rate 76 Respiratory Rate 18 Respiratory Pattern Normal Blood Pressure 133/72 H Blood Pressure Mean 92 Blood Pressure Source Monitor Blood Pressure Position Semi-Fowlers Blood Pressure Location Right Arm Pulse Ox 100 Oxygen Delivery Method Room Air Weight Weight: 94.801 kg Body Mass Index (BMI) 38.2 Results Lab / Micro Data Result Diagrams: 02/07/21 13:14 02/07/21 13:14 Labs: Laboratory Results - last 24 hr 02/07/21 13:16: Blood Type Cancelled, A1 Antigen Typing Cancelled, Rho(D) Type Cancelled, Antibody Screen Cancelled, Crossmatch See Detail Radiology Impression Chest X-Ray 02/07/21 12:52 IMPRESSION: Hypoinflation. The lungs are clear. Electronically Signed: Mt Perdomo MD at 12:41 EST , Service support ,
--- NOTE | 2021-02-09 07:44 | PCM.DC ---
Discharge Instructions Diet Discharge Diet: No restrictions Activity Discharge Activity: Return to Normal Activity and May Not Drive (while taking narcotic pain medications.) Dressing / Incision Call your doctor if you observe: Fever of 101 or Higher Follow Up Care Please Follow Up With: Oswaldo Jones MD When: Call [phone] for an appointment Test Results: Test results from this visit will be discussed in further detail at your follow-up appointment, if applicable. Discharge Plan Admission Admit Date/Time: 02/09/21 05:30 Primary Reason for Your Visit: Right Radical nephrectomy Attending Provider: Oswaldo Jones Primary Care Provider: Nellie Rome Discharge Orders/Prescriptions Prescriptions: New docusate sodium [Colace] 100 mg capsule 100 mg PO BID Qty: 20 RF: 0 oxycodone-acetaminophen 5-325 mg tablet 1 tab PO Q4H PRN (Reason: pain) 7 Days Qty: 20 RF: 0 Continued omega-3 fatty acids [Fish Oil Concentrate] 1,000 mg capsule 2,000 mg PO QDAY RF: 0 lisinopril-hydrochlorothiazide 20-25 mg Tablet 1 tab PO DAILY RF: 0 cholecalciferol (vitamin D3) [Vitamin D3] 125 mcg (5,000 unit) Tablet 125 mcg PO DAILY RF: 0 Citlalli Rich 1 cap PO/SL DAILY RF: 0 acetaminophen [Tylenol] 325 mg Tablet 650 mg PO Q4H PRN (Reason: Pain) RF: 0 Referrals / Follow Up: Nellie Rome MD [Primary Care Provider] - Oswaldo Jones MD [STAFF PHYSICIAN] -
[2021-02-09] MEDS: Bupivacaine Mpf 0.5% 30 ML VIAL (10:00)
--- NOTE | 2021-02-09 10:47 | PCM.OPRPT ---
Report of Operation Date of Procedure: 02/09/21 Pre-Operative Diagnosis: Large right 20 cm mass suspected carcinoma Post-Operative Diagnosis: The same Surgery/Procedure Performed:: Right laparoscopic robotic assisted converted to an open right radical nephrectomy Description of Surgical Findings:: 65-year-old female who was found to have a very large right renal mass about 20 cm in size that was replacing the entire right kidney. Because of this she underwent a CT scan demonstrated the mass no obvious signs of metastatic disease, chest x-ray was clear preoperative imaging was reviewed personally of the CAT scan was reviewed and also the chest x-ray I did not see any lymph nodes. Because of this I recommended that she undergo a robotic laparoscopic nephrectomy but she understands of the very large tumor and may require an open incision. 65-year-old female was taken back to the operating room after smooth induction of general anesthesia she was placed supine on the table Blankenship catheter was placed she was then had a endotracheal intubation performed she was placed laterally on the table full flank she had a very large pendulous abdomen her BMI is extremely high at 38 but she is very short female at only 5 feet 2 inches tall and weighs 94 kg, and she had a very large flaccid abdomen that was hanging on the side of the bed with a just the patient to make sure the abdomen was all on the bed when she was secured on the bed then secured the patient to the bed secured the arm to the side and the abdomen was prepped and draped in usual sterile fashion. I then marked out my site for my camera trocar and used a Veress needle to infiltrate the skin made a small incision of the skin and then in the advanced the Veress needle into the peritoneal cavity and filled the peritoneal cavity with CO2 gas once this was done then I placed my camera trocar then under direct visualization we placed a right arm trocar left arm trocar in the second left arm trocar we then docked the robot the robot and started with the procedure again this was a very large obvious mass that was in the and occupying the entire right side of the abdomen the colon was up against the mass I first released the colon off the mass starting superiorly and working my way inferiorly until the colon was completely released I then used a fourth arm to raise the beginning of the tumor up had to be very careful to make sure that I did not put an excessive pressure in the tumors to cause any damage or rupture to the tumor capsule itself as I was elevating the tumor up the was a large amount of excessive large thin veins covering the entire tumor with any movement whatsoever there is a lot of bleeding from these veins made visualization extremely difficult as I work my way underneath the kidney symptoms such a large mass the anatomy was extremely distorted was coming underneath the kidney and was not the normal typical anatomy given how big the mass was and I work my way underneath the kidney is very difficult to retract the kidney superiorly with the robotic arms I came across the vessel that was pumping that appeared to be some sort of feeding arterial vessel I presumed this was the renal artery this was taken with 2 clips down and one clip up I then came to a point where I suspect that there was a venous drainage from this her renal mass but really could not dissected out because of the amount of bleeding so I had the exceptional children teacher assistant put in the Endo JACKSON vascular staple and we stapled across this to take the vein and then we kept on going superiorly but again the amount of bleeding was fairly copious and made progress and possible also at this point in a controlled fashion I undocked the robot and elected to make an incision to continue with the surgery to sew a converted to an open radical nephrectomy to continue with the case so coming off this most superior trocar made incision in the skin made the incision as big as possible since this was a 20 cm tumor and then dissected the fat and then got to the anterior muscle layer dissected to the anterior muscle layer cauterizing any bleeders as we came through and dissected the second muscle layer and then opened up the peritoneum the other trochars were then removed after we are inside the abdomen we turned off the gas of the robot had been undocked I then placed the Bookwalter for retraction retracted the superior port incision cephalad in the inferior part incision towards the legs and then had to manually retract the liver out of the way and then using both hands I then scooped underneath this large tumor and then kept coming across the attachments of the tumor to the surrounding abdominal wall came into the attachment of the kidney superiorly working my way off the lateral sidewall using electrocautery and clips as it was went along to control bleeders and then I went superiorly and then there was another large vein that we encountered probably branch off the renal vein I had to use a Satinsky to place across this vein and then transected it and then place a suture tie in the vein to control for bleeding then once again below then the continue with dissection and and freed up the entire kidney and then finally was able to pull the large mass out of the large abdominal incision once we took out the mass then all the bleeding stopped we irrigated copiously with about 2 L of tepid water and then we inspected the hilum and inspected the base of the resection site and there was no bleeding from the hilum we had controlled the artery with clips and we controlled the vein with a staple there was no bleeding we irrigated again copiously we then closed the abdominal incision in 2 layers we closed the first layer with a 0 Vicryl just closing the peritoneal layer and the first layer of the muscle as an approximation not a muscle strength layer and then we closed the other 2 layers with a looped PDS #1 in a running fashion we then reapproximated the fat and then we used janette on the skin we then closed the small laparoscopic incisions with subcuticular stitches and then the patient was transferred back flat on the table she was clinically stable her blood loss was about 1 L at the end of the time we took out the kidney but once he got the kidney out there was no more bleeding we did decided not to transfuse her since she was hemodynamically stable but will check a CBC and a BMP in the PACU to make sure she is hemodynamically stable she was extubated and taken to the PACU in good condition the nurses reported that all sponges and needles were accounted for since this was an open case. I was present during the entire case I did have a PARCEL POST DELIVERY exceptional children teacher assistant Herb Padilla during the entire case and needed close some of the incisions at the end of the case. Surgeon: jack Type of Anesthesia: General Drains: blankenship 18 Admit VTE Documentation VTE Present on Admission: No VTE Mechan Device Prophylaxis: SCD's VTE Pharm Prophylaxis ordered?: No
[2021-02-09 11:54] LABS: Hematocrit 32.2 % (37-47); Hemoglobin 10.9 g/dL (12.0-15.0); Mean Corp Hgb Conc 33.9 g/dL (32-36); Mean Corpuscular Hgb 29.4 pg (27.0-32.0); Mean Corpuscular Volume 86.8 fL (81-99); Mean Platelet Vol. 9.6 fl (6.2-12.0); POSITIVE COUNT YES; Platelet Count 363 K/mm3 (150-450); RBC Distribution Width CV 12.5 % (11.6-14.6); RBC Distribution Width SD 40.1 fl (35.1-43.9); Red Blood Count 3.71 M/mm3 (4.2-5.4); White Blood Count 31.4 K/mm3 (4.4-11.0)
[2021-02-09 11:59] LABS: Anion Gap 10 (5-15); BUN 12 mg/dL (7-18); BUN/Creat Ratio 12.7 RATIO (10-20); Calcium,Total 8.7 mg/dL (8.5-10.1); Chloride 104 mmol/L (98-107); Creatinine, Serum 0.95 mg/dL (0.55-1.02); EST Glomerular Filtration Rate 63 mL/min (>60); Est Glom Filt Rate - Afr Amer 76 mL/min (>60); Estimated Creatinine Clearance 46.69 ml/min; Glucose 171 mg/dL (74-106); Potassium 3.8 mmol/L (3.5-5.1); Sodium Level 140 mmol/L (136-145)
[2021-02-09 12:01] LABS: Scan Indicated on CBC? Y/N YES- FLAGS NOTED
[2021-02-09] MEDS: Morphine 2 MG/ML Syringe IV ×3 (14:46→20:04)
[2021-02-09] MEDS: Lactated Ringers 1,000 ML 125 ML IV ×2 (16:13→23:57)
--- NOTE | 2021-02-09 18:58 | PCS.PANDOC ---
PANDEMIC DOCUMENTATION INITIATED: Date: 10/25/2020 Time: 190
[2021-02-10] VITALS (7 sets, daily range): BP systolic 108–143; BP diastolic 56–66; PULSE 73–90; RESP 16–20; TEMP 36.8–37.2; O2SAT 92–98
[2021-02-10] MEDS: Acetaminophen 325 MG Tablet 650 MG PO ×2 (03:12→21:43)
[2021-02-10] MEDS: Lactated Ringers 1,000 ML 15 ML IV (06:46)
[2021-02-10] MEDS: Morphine 2 MG/ML Syringe IV (06:47)
[2021-02-10 06:56] LABS: Hematocrit 25.1 % (37-47); Hemoglobin 8.6 g/dL (12.0-15.0); Mean Corp Hgb Conc 34.3 g/dL (32-36); Mean Corpuscular Hgb 29.1 pg (27.0-32.0); Mean Corpuscular Volume 84.8 fL (81-99); Mean Platelet Vol. 9.7 fl (6.2-12.0); Platelet Count 262 K/mm3 (150-450); RBC Distribution Width CV 12.4 % (11.6-14.6); RBC Distribution Width SD 38.5 fl (35.1-43.9); Red Blood Count 2.96 M/mm3 (4.2-5.4); White Blood Count 11.7 K/mm3 (4.4-11.0)
[2021-02-10 07:14] LABS: Anion Gap 6 (5-15); BUN 11 mg/dL (7-18); BUN/Creat Ratio 9.5 RATIO (10-20); Calcium,Total 8.1 mg/dL (8.5-10.1); Chloride 101 mmol/L (98-107); Creatinine, Serum 1.16 mg/dL (0.55-1.02); EST Glomerular Filtration Rate 50 mL/min (>60); Est Glom Filt Rate - Afr Amer 60 mL/min (>60); Estimated Creatinine Clearance 38.24 ml/min; Glucose 129 mg/dL (74-106); Potassium 3.9 mmol/L (3.5-5.1); Sodium Level 135 mmol/L (136-145)
--- NOTE | 2021-02-10 07:34 | PN.URO_ITS ---
Subjective Subjective 65-year-old female status post a laparoscopic converted to open right radical nephrectomy for a very large 20 cm mass. We did lose about a liter of blood and surgery but her hemoglobin this morning is still stable enough not to require a blood transfusion and also her vitals are stable. Plan to slow down her IV f luids DC [place] advance diet as tolerated and moved to oral pain medicine morphine as needed and hopefully get the patient out of bed and ambulating in the hallways a little bit. Objective Data Objective Data Vital Signs: Vital Signs Temp Pulse Resp BP Pulse Ox 98.2 F 78 16 125/57 H 98 02/10/21 06:09 02/10/21 06:09 02/10/21 06:09 02/10/21 06:09 02/10/21 06:09 Oxygen Flow Rate (L/min) 2 Oxygen Delivery Method Nasal Cannula Weight: 94.801 kg Body Mass Index (BMI) 38.2 Intake & Output: Intake and Output for Last 24 Hours 02/08/21 02/09/21 02/10/21 23:59 23:59 23:59 Intake Total 6531.17 / 6831.17 1200 / 1200 Output Total 360 / 910 1350 / 1350 Balance 6171.17 / 5921.17 -150 / -150 Lab / Micro Data Result Diagrams: 02/10/21 06:20 02/10/21 06:20 Labs: Laboratory Results - last 24 hr 02/09/21 11:41: WBC 31.4 H*, RBC 3.71 L, Hgb 10.9 L, Hct 32.2 L, MCV 86.8, MCH 29.4, MCHC 33.9, RDW Std Deviation 40.1, RDW Coeff of Heri 12.5, Plt Count 363, MPV 9.6, Differential Comment COMMENT, Diff Path Review July02/09/21 11:41: Sodium 140, Potassium 3.8, Chloride 104, Carbon Dioxide 26.0, Anion Gap 10, BUN 12, Creatinine 0.95, Estim Creat Clear Calc 46.69, Est GFR (MDRD) Af Amer 76, Est GFR (MDRD) Non-Af 63, BUN/Creatinine Ratio 12.7, Glucose 171 H, Calcium 8.7 02/10/21 06:20: WBC 11.7 H, RBC 2.96 L, Hgb 8.6 L, Hct 25.1 L, MCV 84.8, MCH 29.1, MCHC 34.3, RDW Std Deviation 38.5, RDW Coeff of Heri 12.4, Plt Count 262, MPV 9.7 02/10/21 06:20: Sodium 135 L, Potassium 3.9, Chloride 101, Carbon Dioxide 28.0, Anion Gap 6, BUN 11, Creatinine 1.16 H, Estim Creat Clear Calc 38.24, Est GFR (MDRD) Af Amer 60, Est GFR (MDRD) Non-Af 50 L, BUN/Creatinine Ratio 9.5 L, Glucose 129 H, Calcium 8.1 L Micro: Microbiology 02/07/21 12:53 Interface Orders SARS-CoV-2 Antigen (Rapid) - Final Physical Exam Const General Appearance: cooperative and well developed HEENT TM's normal bilaterally Neck no JVD Lymph Lymphatic: no lymphadenopathy noted Resp clear to auscultation bilaterally Cardio regular rate GI Palpation: soft Back/Spine no CVA tenderness Assessment & Plan Assessment/Plan (1) History of renal disease:
[2021-02-10 09:46] LABS: Pathologist Review Reviewed
--- NOTE | 2021-02-10 12:00 | CASEMGMT ---
IRON VALENTINE Assessment: Face to Face with pt for initial transition planning/care coordination assessment. RN MEME introduced self and role at [facility], pt voices understanding and consents to assessment. Pt is A/O x4 and answers all questions appropriately at this time. Pt sitting up in chair with at bedside. Pt is in no distress but has a flat affect. Care providers, pharmacy, and demographics verified/updated. Admitting Dx: Lap Robotic Radical Nephrectomy PCP:Latricia Specialists:Karen, uro; anthony Wen Preferred Pharmacy: [facility] Rich Insurance: [facility], MMO Prescription Benefit: yes LW/HPOA: Pt states that she has a LW/DPOA. States her DPOA is her , [place]. Pt is aware that this is not on file at [facility] and she may bring in to be scanned into the chart. LNOK: [place], Living Arrangements: Pt lives with in a split level house with 3 steps to enter without a rail. Pt reports she is I in ADL's and denies concerns at home. Transportation: Pt drives self and denies concerns with transportation. DME/HHC/SNF: Pt has a cane, walker and BSC at home, but typically does not use. Pt also has a CPAP. Pt denies hx of HHC or SNF stays. Pt states no concerns with going home at time of dc. Pt states no further concerns/needs. CM to follow. Advised pt to ask CM if any further question/concerns/needs arise, voices understanding. Pt Goal: Home Plan: Home
--- NOTE | 2021-02-10 12:45 | CASEMGMT ---
Social Work Note SW received referral as pt has flat affect. SW in to speak with pt. Pt's present in room. Pt states that she is doing ok, states she is some pain. Pt appears very soft spoken during conversation. Pt states that she does have history of Anxiety and Depression. Pt states that she see's a counselor through a private practice. Pt states she see's her counselor whenever she needs to. Pt denied any history of suicidal thoughts/plans/ideations. Pt denied any current suicidal thoughts/plans/ideations. Pt denied any additional needs or concerns at this time. Aisha Cadena PLANT PROTECTION SUPERVISOR, PRINTING PLATE CLERK
--- NOTE | 2021-02-10 13:41 | CHAPLAIN ---
Type of Pastoral Visit _x__ Initial Visit ___ Follow-up Visit ___ On-call Visit ___ General Patient Visit ___ Spiritual Assessment ___ Family Conference ___ Bereavement ___ Rapid Response ___ Code Blue ___ Other (describe below) Pastoral Care Referral From _x__ Patient x Family ___ Nurse ___ Physician ___ Ceramic Coater ___ Division Toll Wire Chief ___ Other (describe below) Sacrament/Intervention _x__ Active listening ___ Anointing ___ Orthodoxy ___ Bereavement ___ Communion ___ Glenda exploration ___ ___ Life review _x__ Prayer ___ Reconciliation ___ Sacrament of Sick _x__ Supportive presence ___ Wedding ___ Other (describe below) Pastoral Comments 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
--- NOTE | 2021-02-10 15:13 | NURSING ---
Assisted patient to the bathroom. patient voided but missed the hat. patient ambulated to the hallway and back to the bed. patient states some mild dizziness. pt resting in bed. denies further needs.
[2021-02-11 02:30] VITALS: BP 135/66; PULSE 76; RESP 16; TEMP 36.7; O2SAT 96
[2021-02-11 05:51] LABS: Hematocrit 22.8 % (37-47); Hemoglobin 7.8 g/dL (12.0-15.0)
[2021-02-11] MEDS: Acetaminophen 325 MG Tablet 650 MG PO ×3 (06:44→20:49)
[2021-02-11 08:30] VITALS: BP 133/74; PULSE 78; RESP 16; TEMP 36.8; O2SAT 96
[2021-02-11] MEDS: hydroCHLOROthiazide 25 MG Tablet PO (10:04)
[2021-02-11] MEDS: Lisinopril 20 MG Tablet PO (10:04)
--- NOTE | 2021-02-11 10:18 | PCM.PN.GU ---
Subjective Subjective clinically stable, no transusion need, h/h down will monitor, no signs of bleeding Objective Data Objective Data Vital Signs: Vital Signs Temp Pulse Resp BP Pulse Ox 98.3 F 78 16 133/74 H 96 02/11/21 08:30 02/11/21 08:30 02/11/21 08:30 02/11/21 08:30 02/11/21 08:30 Oxygen Flow Rate (L/min) 2 Oxygen Delivery Method Room Air Weight: 94.801 kg Body Mass Index (BMI) 38.2 Intake & Output: Intake and Output for Last 24 Hours 02/09/21 02/10/21 02/11/21 23:59 23:59 23:59 Intake Total 6531.17 / 6831.17 3750 / 3750 500 / 500 Output Total 360 / 910 1999 / 1999 600 / 600 Balance 6171.17 / 5921.17 1750 / 1750 -100 / -100 Lab / Micro Data Result Diagrams: 02/11/21 05:34 02/10/21 06:20 Labs: Laboratory Results - last 24 hr 02/07/21 13:16: Crossmatch See Detail 02/11/21 05:34: Hgb 7.8 L, Hct 22.8 L Micro: Microbiology 02/07/21 12:53 Interface Orders SARS-CoV-2 Antigen (Rapid) - Final Physical Exam Const alert and oriented x3 General Appearance: cooperative HEENT normocephalic and head/scalp atraumatic Eyes PERRL and EOMs intact bilaterally Neck supple, no JVD and no carotid bruits Resp normal respiratory effort, normal air movement and clear to auscultation bilaterally Cardio regular rate and no murmurs GI normal to inspection, nondistended, normoactive bowel sounds and soft to palpation Extremity normal capillary refill General Extremity: no tenderness to palpation of joints or extremities; Negative for edema Skin no rashes or lesions noted and no wounds General Skin Exam: no breakdown Neuro CN's II-XII intact bilaterally Psych affect normal Appearance: appropriate
[2021-02-11 15:48] VITALS: BP 121/67; PULSE 82; RESP 16; TEMP 37; O2SAT 96
[2021-02-11 22:11] VITALS: BP 129/59; PULSE 78; RESP 16; TEMP 36.8; O2SAT 98
[2021-02-12 04:35] VITALS: BP 146/65; PULSE 73; RESP 16; TEMP 36.7; O2SAT 96
--- NOTE | 2021-02-12 06:27 | PCM.PN.GU ---
Subjective Subjective post op day #3 doing well, adv diet as sascha ambulate. Objective Data Objective Data Vital Signs: Vital Signs Temp Pulse Resp BP Pulse Ox 98.1 F 73 16 146/65 H 96 02/12/21 04:35 02/12/21 04:35 02/12/21 04:35 02/12/21 04:35 02/12/21 04:35 Oxygen Flow Rate (L/min) 2 Oxygen Delivery Method Room Air Weight: 94.801 kg Body Mass Index (BMI) 38.2 Intake & Output: Intake and Output for Last 24 Hours 02/10/21 02/11/21 02/12/21 23:59 23:59 23:59 Intake Total 3750 / 3750 3243.5 / 3243.5 Output Total 1999 Balance 1750 / 1750 1243.5 / 1243.5 Lab / Micro Data Result Diagrams: 02/11/21 05:34 02/10/21 06:20 Micro: Microbiology 02/07/21 12:53 Interface Orders SARS-CoV-2 Antigen (Rapid) - Final Physical Exam Const alert and oriented x3 General Appearance: cooperative HEENT normocephalic and head/scalp atraumatic Eyes PERRL and EOMs intact bilaterally Neck supple, no JVD and no carotid bruits Resp normal respiratory effort, normal air movement and clear to auscultation bilaterally Cardio regular rate and no murmurs GI normal to inspection, nondistended, normoactive bowel sounds and soft to palpation Extremity normal capillary refill General Extremity: no tenderness to palpation of joints or extremities; Negative for edema Skin no rashes or lesions noted and no wounds General Skin Exam: no breakdown Neuro CN's II-XII intact bilaterally Psych affect normal Appearance: appropriate Assessment & Plan Assessment/Plan (1) History of renal disease: PLAN: KIDNEY CANCER SUMMARYProcedure ?radical nephrectomy Specimen laterality ?rightTumor site ?entire kidneyTumor size ?17 x 13 x 13 cmHistologic type ?chromophobe renal cell carcinomaSarcomatoid features ?not identifiedRhabdoid features -not identifiedHistologic grade -grade 2Tumor necrosis -not identifiedTumor extension ?tumor limited to kidneyMargins ?margin uninvolved by invasive carcinomaLymphvascular invasion -not identifiedRegional lymph nodes ?no lymph nodes submitted or found.Non-neoplastic kidney ?mild interstitial chronic inflammation.PATHOLOGIC STAGE: pT2b Nx MxThe above summary is in compliance with [employer] (CAP) Cancer Protocols Checklist and [place] [employer] on Cancer (AJCC), StagingManual, 8th Ed. MICROSCOPIC DESCRIPTIONSlides are reviewed.
[2021-02-12 06:28] LABS: Hemoglobin 7.6 g/dL (12.0-15.0)
--- NOTE | 2021-02-12 06:38 | PCM.DC.SUM ---
Providers Date of Admission: 02/09/21 Primary Care Physician: Dr. Nellie Rome MD Reason For Visit: LAP ROBOTIC RADICAL NEPHRECTOMY Diagnosis Discharge Diagnosis (1) History of renal disease: Status: Acute Code(s): Z87.448 - Personal history of other diseases of urinary system Medications at Discharge Home Medications omega-3 fatty acids 1,000 mg capsule 2,000 mg PO QDAY cap 06/26/17 Citlalli Rich 1 cap PO/SL DAILY 02/02/21 acetaminophen [Tylenol] 650 mg PO Q4H PRN 02/02/21 cholecalciferol (vitamin D3) [Vitamin D3] 125 mcg PO DAILY 02/02/21 lisinopril-hydrochlorothiazide 1 tab PO DAILY 02/02/21 docusate sodium [Colace] 100 mg PO BID #20 cap 02/09/21 oxycodone-acetaminophen 1 tab PO Q4H PRN 7 Days #20 tab 02/09/21 Hospital Course Summary of Care Provided Hospital Course: 65-year-old female was found to have a very large right renal mass she underwent a laparoscopic robotic assisted converted to an open radical nephrectomy because of this such a large mass pathology turned out to be 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 Postop course was relatively unremarkable her vital signs were stable [place] catheter was removed the next day she was ambulating by postoperative day #2 by postoperative day #3 she is passed gas bowel function was normal tolerating regular diet and pain was under control and she will be discharged home with Percocet and Colace and instructions for wound care were given she can shower or dress normal daily activities up and down stairs okay no driving. All this was reviewed with the patient. She will follow-up next week to remove her janette. KIDNEY CANCER SUMMARYProcedure ?radical nephrectomy Specimen laterality ?rightTumor site ?entire kidneyTumor size ?17 x 13 x 13 cmHistologic type ?chromophobe renal cell carcinomaSarcomatoid features ?not identifiedRhabdoid features -not identifiedHistologic grade -grade 2Tumor necrosis -not identifiedTumor extension ?tumor limited to kidneyMargins ?margin uninvolved by invasive carcinomaLymphvascular invasion -not identifiedRegional lymph nodes ?no lymph nodes submitted or found.Non-neoplastic kidney ?mild interstitial chronic inflammation.PATHOLOGIC STAGE: pT2b Nx MxThe above summary is in compliance with [employer] (CAP) Cancer Protocols Checklist and [place] [employer] on Cancer (AJCC), StagingManual, 8th Ed. MICROSCOPIC DESCRIPTIONSlides are reviewed. Physical Exam Narrative Abdomen soft and benign incisions are clean and intact janette are clean and intact she is in no acute distress alert oriented x3 pleasant interactive. Weight / BMI Weight Weight: 94.801 kg Body Mass Index (BMI) 38.2 ABG / Lab / Microbiology Data Result Diagrams: 02/12/21 06:13 02/10/21 06:20 Laboratory: Laboratory Results - last 24 hr 02/12/21 06:13: Hgb 7.6 L, Hct 22.0 L Microbiology: Microbiology 02/07/21 12:53 Interface Orders SARS-CoV-2 Antigen (Rapid) - Final D/C Instructions Discharge Diet: No restrictions Call your doctor if you observe: Fever of 101 or Higher Please Follow Up With: Oswaldo Jones MD When: Call [phone] for an appointment Meaningful Use Info Meaningful Use Diagnoses (Choose all that apply): None applicable Discharge Plan Admission Admit Date/Time: 02/09/21 05:30 Primary Reason for Your Visit: Right Radical nephrectomy Attending Provider: Oswaldo Jones Primary Care Provider: Nellie Rome Discharge Orders/Prescriptions Prescriptions: New docusate sodium [Colace] 100 mg capsule 100 mg PO BID Qty: 20 RF: 0 oxycodone-acetaminophen 5-325 mg tablet 1 tab PO Q4H PRN (Reason: pain) 7 Days Qty: 20 RF: 0 Continued omega-3 fatty acids [Fish Oil Concentrate] 1,000 mg capsule 2,000 mg PO QDAY RF: 0 lisinopril-hydrochlorothiazide 20-25 mg Tablet 1 tab PO DAILY RF: 0 cholecalciferol (vitamin D3) [Vitamin D3] 125 mcg (5,000 unit) Tablet 125 mcg PO DAILY RF: 0 Citlalli Rich 1 cap PO/SL DAILY RF: 0 acetaminophen [Tylenol] 325 mg Tablet 650 mg PO Q4H PRN (Reason: Pain) RF: 0 Referrals / Follow Up: Nellie Rome MD [Primary Care Provider] - Oswaldo Jones MD [STAFF PHYSICIAN] - Disposition Discharge Orders: Discharge Patient (Routine); Ordered 02/12/21 Ordered By: Dr. Oswaldo Jones
[2021-02-12] MEDS: Acetaminophen 325 MG Tablet 650 MG PO (08:08)
[2021-02-12] MEDS: Lisinopril 20 MG Tablet PO (08:08)
[2021-02-12] MEDS: hydroCHLOROthiazide 25 MG Tablet PO (08:08)
[2021-02-12 08:11] VITALS: BP 138/73; PULSE 82; RESP 16; TEMP 36.7; O2SAT 96
== END 2021-02-12 10:25 | disposition home or self-care (01) | DRG 657 ==
LOC: ACINP 07:43 → MS3 15:07
PROVIDERS: Admitting Provider Urology; PCP Family Medicine; Referring Provider Urology; Visit Provider Urology
PROC: 0TT00ZZ Resection of Right Kidney, Open Approach (ICD-10-PCS; CPT 50546; principal; 2021-02-09 07:10)
DX: C64.1 Malignant neoplasm of right kidney, except renal pelvis (principal); D62 Acute posthemorrhagic anemia; Z53.31 Laparoscopic surgical procedure converted to open procedure; I10 Essential (primary) hypertension; M19.90 Unspecified osteoarthritis, unspecified site; G47.30 Sleep apnea, unspecified; Z87.19 Personal history of other diseases of the digestive system; Z79.899 Other long term (current) drug therapy
CPT/HCPCS: 36415; 71046; 80048; 80053; 85014; 85018; 85027; 86850; 86900; 86901; 86920; 87426; 88305; 93005; 97802; C9803; J7120; A4216; J2405

== ENCOUNTER → 2021-03-07 14:04 | Outpatient (CLI) | payer MEDICARE, OTHER, SELFPAY ==
--- NOTE | 2021-03-07 14:14 | US_ITS ---
STUDY: THYROID ULTRASOUND REASON FOR EXAM: Female, 65 years old. FOLLOW UP NODULES -- previous us 06/21/17 TECHNIQUE: Ultrasound evaluation of the thyroid was performed with real-time and static jeter-scale imaging. COMPARISON: 06/21/2017 ultrasound, 12/21/2014 biopsy FINDINGS: RIGHT LOBE: The right lobe of the thyroid gland measures 4.5 x 1.9 x 1.3 cm. There is a homogeneous echotexture. There are multiple solid and cystic hypoechoic nodules of the right thyroid lobe measuring up to 7 mm one of which demonstrates coarse shadowing calcification. These have not changed significantly since the prior study accounting for variations in measuring technique. No new or enlarging pulmonary nodule. LEFT LOBE: The left lobe of the thyroid gland measures 6.7 x 4.2 x 3.1 cm. There is a homogeneous echotexture. There are 2 solid nodules of the left thyroid lobe with small areas of cystic transformation. The largest nodule measures 3.6 x 3.4 x 2.7 cm, although is unlikely to be significantly changed accounting for significant variation in measuring technique between the 2 studies. Subjectively, there has not been significant change in size when comparing image 85 of the current study with image 70 of the prior study. The second nodule currently measures up to 2.7 x 1.9 x 1.9 cm, which is not significantly changed since prior study. ISTHMUS: The isthmus measures 3.6 mm. The regional lymph nodes are normal. US/Thyroid IMPRESSION: 1. Since 06/21/2014, no significant interval change. Bilateral (left larger than right) thyroid nodules. No new or enlarging thyroid nodule. Electronically Signed: Sebastian Barnes MD (Brooks) at 9:43 EST , Service support ,
== END ==
PROVIDERS: PCP Family Medicine; Referring Provider Family Medicine; Visit Provider Family Medicine
DX: E04.2 Nontoxic multinodular goiter (principal)
CPT/HCPCS: 76536

== ENCOUNTER → 2021-09-01 | Outpatient (CLI) | payer MEDICARE, OTHER, SELFPAY ==
[2021-09-01 17:00] LABS: Absolute Lymphocyte Count 2.73 X10^3/uL (0.83-4.51); Absolute Neutrophil Count 9.1 X10^3/uL (2.0-7.7); Basophil# 0.03 X10^3/uL; Basophil% 0.2 % (0-1); Eosinophil# 0.19 X10^3/uL; Eosinophils% 1.5 % (0-5); Hematocrit 34.9 % (37-47); Hemoglobin 11.3 g/dL (12.0-15.0); Lymphocyte # 2.73 X10^3/ul (0.83-4.51); Mean Corp Hgb Conc 32.4 g/dL (32-36); Mean Corpuscular Hgb 27.3 pg (27.0-32.0); Mean Corpuscular Volume 84.3 fL (81-99); Monocyte# 0.95 X10^3/uL; Monocyte% 7.3 % (0-10); NRBC Flagged by Analyzer 0 % (0-5); Neutrophil # 9.08 X10^3/uL (2.7-7.7); Neutrophil % 69.6 % (47-70); Platelet Count 496 K/mm3 (150-450); RBC Distribution Width CV 13.6 % (11.6-14.6); RBC Distribution Width SD 42.3 fl (35.1-43.9); Red Blood Count 4.14 M/mm3 (4.2-5.4)
== END | disposition home or self-care (01) ==
LOC: LAB 16:50
PROVIDERS: PCP Family Medicine; Referring Provider Family Medicine; Visit Provider Family Medicine
DX: K92.2 Gastrointestinal hemorrhage, unspecified (principal)
CPT/HCPCS: 36415; 85025

== ENCOUNTER → 2021-09-08 | Outpatient (CLI) | payer MEDICARE, OTHER, SELFPAY ==
--- NOTE | 2021-09-08 11:29 | US_ITS ---
STUDY: ABDOMINAL ULTRASOUND - RIGHT UPPER QUADRANT REASON FOR VISIT: Female, 66 years old abdominal pain TECHNIQUE: Ultrasound evaluation of the right upper quadrant was performed with real-time and static jeter-scale imaging. TECHNICAL QUALITY: Adequate. COMPARISON: None. FINDINGS: Liver: The liver measures 15.2 cm. There is normal echogenicity of the liver. The bile ducts are within normal limits. There is hepatic color flow. The direction of portal flow is hepatopetal. There is no demonstrated mass lesion. Gallbladder: Normal distended gallbladder. The gallbladder wall measures 2 mm. There is a negative sonographic Kapoor''s sign. There is no pericholecystic fluid. There are multiple echogenic structures within the gallbladder, consistent with multiple gallstones. Common Bile Duct (C.B.D.): The common bile duct measures 2 mm. Pancreas: Normal size of the head, body and tail of the pancreas. There is normal echogenicity of the pancreas. There is no demonstrated pancreatic mass or cyst. Right Kidney: Status post right nephrectomy. US/Gallbladder IMPRESSION: Cholelithiasis. Electronically Signed: Michel Lares MD at 12:29 EDT ,
--- NOTE | 2021-09-08 11:46 | CT_ITS ---
STUDY: CT CHEST, ABDOMEN T PELVIS WITH CONTRAST REASON FOR EXAM: Female, 66 years old. MALIGNANT NEOPLASM OF RIGHT KIDNEY, EXCEPT RENAL PELVIS RADIATION DOSAGE (If Supplied By Facility): CTDIvol = ( 20.42 ) mGy, DLP = ( 2056.47 ) mGycm TECHNIQUE: Transaxial imaging was performed following intravenous administration of Oral and amp;amp; IV Gastrografin and amp;amp; 75mL Isovue-300. Individualized dose optimization techniques were used for this CT. COMPARISON: 12/28/2020 FINDINGS: CHEST Larger nodule the left lobe of the thyroid gland with substernal extension. The lungs are normal. There is no demonstrated pleural abnormality. Normal heart and pericardium. Normal mediastinum. Normal hilar regions. Normal unenhanced pulmonary arteries. Normal aorta arch and descending thoracic aorta. There are multi-level degenerative changes of the thoracic spine. There is no demonstrated abnormality of the visualized upper abdomen. ABDOMEN The visualized lung bases are unremarkable. The visualized portions of the heart are within normal limits. Normal liver. There are multiple gallstones. Normal spleen. Normal pancreas. Normal bilateral adrenal glands. Status post right nephrectomy. No residual or recurrent mass in the renal fossa. Normal left kidney. Normal visualized stomach. Normal small intestine. There are multiple colonic diverticula consistent with diverticulosis. 5 cm lipoma of the mid transverse colon with focal circumferential wall thickening just proximal to the lipoma. Correlation with endoscopy would be useful to exclude a malignant mass. The appendix is visualized and appears normal. There is diffuse atherosclerotic calcification of the abdominal aorta, without a demonstrated aneurysm. Normal inferior vena cava. Normal retroperitoneum. Normal abdominal wall. Normal osseous structures. PELVIS Normal urinary bladder. Normal visualized small intestine. Normal visualized colon. There is no pelvic fluid. There is no pelvic lymphadenopathy or mass lesion. Normal visualized pelvic arteries. Normal abdominal wall. Normal osseous structures. CT/CT Chest, Abd, Pel w/Contrast IMPRESSION: 1. Status post right nephrectomy without evidence of residual, recurrent, or metastatic renal cell carcinoma. 2. Cholelithiasis. 3. 5 cm lipoma of the mid transverse colon with circumferential wall thickening proximal to the lipoma which may represent intussusception or malignant soft tissue mass. Correlation with endoscopy would be useful. 4. Large nodule the left lobe of the thyroid gland with substernal extension. Electronically Signed: Michel Lares MD at 17:50 EDT ,
== END | disposition home or self-care (01) ==
LOC: CT 11:29
PROVIDERS: PCP Family Medicine; Visit Provider Urology
DX: C64.1 Malignant neoplasm of right kidney, except renal pelvis (principal); R07.9 Chest pain, unspecified; R10.9 Unspecified abdominal pain
CPT/HCPCS: 71260; 74177; 76705; Q9967

== ENCOUNTER 2021-09-13 09:09 | Day surgery (SDC) | payer MEDICARE, OTHER, SELFPAY ==
--- NOTE | 2021-09-08 11:44 | EKG12_ITS ---
Test Reason : PRE PROCEDURE Blood Pressure : / mmHG Vent. Rate : 067 BPM Atrial Rate : 067 BPM P-R Int : 160 ms QRS Dur : 118 ms QT Int : 404 ms P-R-T Axes : 056 -56 061 degrees QTc Int : 426 ms Normal sinus rhythm Left anterior fascicular block Left ventricular hypertrophy with QRS widening Abnormal ECG Confirmed by EWA UMAÑA, SALAS ([id number]), supervising editor trailer SUMIT ROLLINS ([id number]) on 09/13/2021 9:38:12 AM Referred By: Alex Vazquez Confirmed By:KATHY MCNEIL MD
[2021-09-13] VITALS (11 sets, daily range): BP systolic 76–133; BP diastolic 47–63; PULSE 58–74; RESP 14–18; TEMP 36–36.5; O2SAT 96–100; BMI 37.0
[2021-09-13] MEDS: Lactated Ringers 1,000 ML 15 ML IV ×2 (09:30→11:27)
--- NOTE | 2021-09-13 09:39 | PCM.HP.BLA ---
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 Required: No Accompanied by: Is patient in pain?: No Allergies acetazolamide [From Diamox Sequels] Adverse Reaction (Verified 09/07/21 13:27) DEPRESSIONduloxetine [From Cymbalta] Adverse Reaction (Verified 09/07/21 13:27) DEPRESSIONtetracycline Adverse Reaction (Verified 09/07/21 13:27) DEPRESSION Medications omega-3 fatty acids 1,000 mg capsule (Fish Oil Concentrate) 2,000 mg PO QDAY SUPPLEMENT 06/26/17 [History Confirmed 09/07/21] acetaminophen 325 mg tablet (Tylenol) 650 mg PO Q4H PRN Pain 02/02/21 [History Confirmed 09/07/21] cholecalciferol (vitamin D3) 125 mcg (5,000 unit) tablet (Vitamin D3) 125 mcg PO DAILY SUPPLEMENT 02/02/21 [History Confirmed 09/07/21] lisinopril 20 mg-hydrochlorothiazide 25 mg tablet 1 tab PO DAILY BP 02/02/21 [History Confirmed 09/07/21] magnesium 250 mg tablet 250 mg PO DAILY 07/04/21 [History Confirmed 09/07/21] PFSH Medical History?(Updated 09/07/21 @ 15:[address] Alex Vazquez MD) Abdominal pain Anxiety Arthritis Back pain Chest pain CPAP (continuous positive airway pressure) dependence Diverticulitis Heartburn Hemorrhoids History of diverticulitis History of pain when walking History of renal disease Hypertension Nodular thyroid disease Non-smoker Shortness of breath on exertion Sleep apnea Thyroid disease Thyroid nodule Wears glasses Surgical History? history excision right breast lump Hx of colonoscopy S/P thyroid biopsy Family History? Mother Colon cancer HypertensionFather Diabetes Social History? household members:? spouse housing:? house Smoking Status:? Never smoker alcohol intake:? never substance use type:? does not use HPI HPI HPI: Kevyn RODRIGUEZ, is a 66 F who presents to the office today for surgical consultation regarding potential upper GI bleed.? The patient is referred by Dr. Nellie Rome and a written copy of my surgical consult recommendations will return to her.? It is pertinent that her past history is notable for hypertension and fibromyalgia and sleep apnea and GE reflux disease and obesity and diverticulitis and renal cell carcinoma status post right nephrectomy February 2021.? It is of additional note that her mother had colon cancer and pancreatic cancer.? When she saw Dr. Nellie Rome on September 01, 2021 the patient had complained of an episode of nausea and lightheadedness and epigastric pain followed by a red color to her stool.? By report she had been treated the month prior for suspected diverticulitis with a course of oral antibiotics.? Left lower quadrant pain improved.? She was found to be fecal occult blood positive.? White blood cell count was 13,000 with a hemoglobin 11.3 hematocrit 34.9 and a platelet count of 4 96,000.It is of note that previously on February 07, 2021 the patient had a white count of 12,000 with a hemoglobin 14.2 hematocrit of 42.2 and a platelet count of 4 and 17,000 Going back to December 28, 2020 CT scan was [facility] at [facility] demonstrated a 19 cm mass in the right kidney there was diverticulosis with thickening of the distal descending colon wall with inflammation consistent with acute diverticulitis.? There was a small umbilical hernia with fat.? Multiple gallstones in the gallbladder identified. The patient Sunday if symptoms and history.? She states a week ago she developed epigastric pain felt lightheaded had back pain with sweating and pale.? Even prior to that she has been having nondescript description mid abdominal pain.? She noticed a red tint to her stool.? She states that she does not have a history of peptic ulcer disease.? She does not take NSAIDs.? She thinks her previous colonoscopy of which she has had 2 was in 2017.? She does not recall any acute findings. She personally denies any heart disease.? It is of note that she successfully underwent a right nephrectomy February 09, [address] Jones for large right kidney cancer.? She states there were no cardiac issues at that time. The patient's not aware that she has had any gallbladder disease however her previous CAT scan did demonstrate cholelithiasis. She states that she did have an episode of sigmoid diverticulitis.? That is why she had the CT scan performed December 28, 2020.? It is of note that that also demonstrated a fat-containing umbilical hernia but the patient states that she was unaware of that. ROS General General: Yes weight change and fatigue; No appetite, colon cancer, breast cancer or weakness HEENT HEENT: No difficulty swallowing, eye injury, eye surgery, swollen glands or hoarseness Endo Endocrine: No thyroid disease, diabetes mellitus, thyroid cancer, Hair loss, heat intolerance or cold intolerance Skin Skin: No rash or changing moles Breast Breast: No left breast lump, right breast lump, nipple discharge, breast pain, abnormal mammogram, abnormal US or breast enlargement Musc Musculoskeletal: Yes arthritis; No back problems, rheumatoid arthritis, gout or joint pain Cardio Cardiovascular: Yes high blood pressure; No murmur, pacemaker, heart disease, atrial fibrillation, heart attack, heart stent, palpitations, shortness of breat with exertion or chest pain Psych Psychiatric: No depression, anxiety or hearing voices Resp Respiratory: No shortness of breath, Yes sleep apnea, No cough, No COPD, No asthma, No emphysema and No wheezing Gastro Gastrointestinal: Yes abdominal pain, No nausea or vomiting, Yes diarrhea, No constipation, Yes blood in stool, No acid reflux, Yes hemorrhoids, No ulcers, No gallbladder problem and Yes black,tarry stools Jaxon Hematologic: No blood thinners, No blood disorders, No bleeding, No anemia and No blood clots Neuro Neurologic: No system reviewed and no additional complaints, except as documented, No as per HPI, No abnormal gait, No abnormal hearing, No abnormal movements, No abnormal speech, No behavioral changes, No burning sensations, No confusion, No convulsions, No disequilibrium, Yes dizziness, No localized weakness, No frequent falls, No headache(s), No lack of coordination, No loss of vision, No memory loss, No numbness, No other visual disturbances, No radicular pain, No restless legs, No sensory deficit, No syncope, No tingling, No tremor(s), No weakness and No other Exam Const General: cooperative, comfortable and no acute distress Nutritional Appearance: obese HENFL Head: normal to inspection Eyes General: appearance normal, both eyes and all related structures Neck Neck: normal visual inspection Chest Chest palpation & inspection: normal inspection of the chest Resp Effort & Inspection: normal respiratory effort Auscultation: clear to auscultation bilaterally Cardio Rate: regular rate Rhythm: regular rhythm GI Palpation: soft Auscultation: normal bowel sounds Other: Patient carries majority of weight in her abdomen with a very large abdomen and overlying pannus.? No focal tenderness.? Very difficult to determine any internal organs.? Easily reducible fat-containing umbilical hernia. Skin General: no rashes or lesions noted Neuro General: patient alert, patient awake and patient oriented x3 Extrem General: normal to inspection and no calf tenderness Psych Appearance: grossly normal Assessment and Plan Assessment and Plan (1) Epigastric abdominal pain: ?Status:?Acute (2) Lower abdominal pain: ?Status:?Acute (3) History of diverticulitis: ?Status:?Acute (4) History of renal disease: ?Status:?Acute ?Comment: KIDNEY MASS (5) Cholecystitis with cholelithiasis: ?Status:?Acute ?Plan: Complicated presentation.? 66-year-old female who had severe epigastric pain with diaphoresis sweating nausea.? This could be related to her cholelithiasis and an acute biliary attack.? Recommend gallbladder ultrasound. However anteceding that she has been having a very nondescript complaint of low mid abdominal pain.? She states that previously she had a documented bout of diverticulitis identified on CT scan which actually identified her right renal cancer.? She is not sure where her current mid abdominal pain feels like her diverticulitis but she thinks it somewhat different.? She has a known umbilical hernia but that on clinical exam seems to be reducible. She was scheduled in September per to have a chest abdomen and pelvic CT and follow-up of her right renal cell cancer. To further complicate features the patient suggest that she thinks she sees blood in her stool.? Whether this could be related to her epigastric pain and possible peptic ulcer disease or whether this could be related to diverticular disease is not clear.? It would appear that she has had a slight decrease in her hemoglobin hematocrit.? She is not currently describing stool discoloration.? She is not describing severe acute abdominal pain. I recommend a gallbladder ultrasound.? I recommend CT scan of the abdomen and pelvis which can be included on the previously ordered test.? I recommend a esophagogastroduodenoscopy with possible biopsy and colonoscopy with possible biopsy or polypectomy as indicated. Pending those findings if an acute colonic source is identified i.e. colitis or diverticulitis that she may need to be treated for that.? If the epigastric pain is felt to be more likely consistent with a bout of acute cholecystitis cholelithiasis then I would consider offering her a laparoscopic cholecystectomy.? We will need to be cognizant of her umbilical hernia with fibrofatty tissue.? We will need to be cognizant of possible metastatic renal disease. I will try to schedule and expedite her care.? I appreciate the opportunity of assisting with her surgical management. Copy: Dr. Nellie Vazquez M.D., F.A.C.S. I have re-examined the patient. There are no clinical changes since date of exam. Alex Vazquez M.D., F.A.C.S. Assessment & Plan Assessment/Plan (1) Epigastric abdominal pain: (2) Lower abdominal pain: (3) Cholecystitis with cholelithiasis: (4) History of diverticulitis: (5) Stool bloody: PLAN: Plan Plan to proceed today with a esophagogastroduodenoscopy with possible biopsy and colonoscopy possible biopsy or polypectomy as indicated. The patient is aware of the technique, benefit, risk and alternatives. We will proceed as noted. Alex Vazquez M.D., F.A.C.S.
--- NOTE | 2021-09-13 10:15 | IMM_PTH ---
PATIENT: ROMAN RODRIGUEZ LOC: EN U#:[id number] AGE/SX: 66/F ROOM: RE09/13/[address]: Dr. Alex Vazquez MD : 1955 BED: DIS: 09/13/2021 SPEC #: [id number] RECD: 09/13/21 13:13 STATUS: COLLEEN RERachell #: [id number] LILI: 09/13/21 10:[address]: Alex Vazquez DEPT: IMMUNOHISTOCHEMISTRY RECD BY: Eun Duncan ENTERED: 09/13/21 13:14 SP TYPE: IMMUNO OTHR DR: Dr. Nellie Rome MD Tissues: A - Stomach, NOS Procedures: H Pylori (initial) PHYSICIAN & INSTITUTION [place] [id number] SPECIMEN INFORMATION: Tissue Source: A ? Antrum biopsy Clinical Info: Epigastric and lower abdominal pain, diverticulitis, blood stool Specimen Number: [id number] CPT code: 66319 METHODOLOGY: Deparaffinized sections of prefer/formalin-fixed tissue or PAP/DQ stained slides are incubated with monoclonal/polyclonal antibodies/oligonucleotide probes. Localization is made via biotin free immunoperoxidase method. Appropriate controls are performed and reacted as expected. Results on target cell population are indicated in the following table: RESULTS: ANTIBODY / CLONE RESULT Block A H Pylori (polyclonal) negative These tests were developed and their performance characteristics determined by [facility]. They may not have been cleared or approved by the U.S. Food and Drug Administration. The FDA has determined that such clearance or approval is not necessary. The above immunohistochemical/dualISH markers are ordered and reviewed by the Pathologist. INTERPRETATION: A. Antrum, biopsy: Negative for Helicobacter pylori organisms. SJ:souleymane 09/14/2021
--- NOTE | 2021-09-13 10:15 | COLBX_PTH ---
PATIENT: ROMAN RODRIGUEZ LOC: EN U#:[id number] AGE/SX: 66/F ROOM: RE09/13/[address]: Dr. Alex Vazquez MD : 1955 BED: DIS: 09/13/2021 SPEC #: [id number] RECD: 09/13/21 11:28 STATUS: COLLEEN KIRK #: [id number] LILI: 09/13/21 10:[address]: Alex Vazquez DEPT: SURGICAL PATHOLOGY RECD BY: Dae Rodriguez ENTERED: 09/13/21 13:45 SP TYPE: COLON BX OTHR DR: Dr. Nellie Rome MD Tissues: A - Gastric mucous membrane B - Gastric mucous membrane C - Transverse colon D - Transverse colon E - Descending colon Procedures: Special Stain Group II Surgery Specimen Level IV Alcian Blue/PAS (control) HEADER OPERATION: Colonoscopy, biopsy and ink and polypectomy, EGD with biopsy PRE-OP DIAGNOSIS: Epigastric abdominal pain, lower abdominal pain, cholecystitis with cholelithiasis, history of diverticulitis, blood stool TISSUE SUBMITTED: A - Antrum biopsy for H. pylori and path, B - GE junction, C - Proximal transverse colon, D - Distal transverse colon, E - Descending colon polyp MICROSCOPIC DIAGNOSIS A. Antrum, biopsy: Mild gastritis. See microscopic description and comment. B. Gastroesophageal junction, biopsy: Fragments of gastroesophageal mucosa with chronic inflammation. Intestinal metaplasia (goblet cell metaplasia) not identified. See comment. C. Proximal transverse colon, biopsy: Extensive ulceration, fibrinopurulent exudation and granulation tissue reaction. Negative for malignancy. D. Distal transverse colon, biopsy: Hyperplastic polyp. E. Descending colon polyp, biopsy: Consistent with inflammatory polyp. SJ:souleymane 09/14/2021 COMMENT A. The results of immunohistochemistry for Helicobacter pylori will be reported separately ([id number]). B. Alcian blue/PAS stain with matched control is used in the evaluation of the specimen. C. The specimen predominantly consists of fibrinopurulent exudates. If there is high suspicion of malignancy, rebiopsy is suggested, if clinically indicated. Case has been reviewed in consultation with Dr. Gunderson who concurs with the above diagnosis. IDC:AM MICROSCOPIC DESCRIPTION Slides are reviewed. A. The specimen shows fragments of gastric mucosa with chronic inflammatory cell infiltrates in the lamina propria consisting of lymphocytes and plasma cells, consistent with mild chronic gastritis. GROSS DESCRIPTION A - Received in fixative is one container labeled with the patient's name and designated antrum biopsy. The specimen consists of one irregular fragment of light lennon soft tissue that measures 0.3 x 0.3 x 0.1 cm. The specimen is totally submitted in one cassette. B - Received in fixative is one container labeled with the patient's name and designated GE junction. The specimen consists of two irregular fragments of light lennon soft tissue that in aggregate measure 1 x 0.3 x 0.1 cm. The specimen is totally submitted in one cassette. C - Received in fixative is one container labeled with the patient's name and designated proximal transverse colon. The specimen consists of multiple irregular fragments of light lennon soft tissue that in aggregate measure 0.6 x 0.6 x 0.1 cm. The specimen is totally submitted in one cassette. D - Received in fixative is one container labeled with the patient's name and designated distal transverse colon. The specimen consists of one irregular fragment of light lennon soft tissue that measures 0.4 x 0.4 x 0.1 cm. The specimen is totally submitted in one cassette. E - Received in fixative is one container labeled with the patient's name and designated descending colon polyp. The specimen consists of one irregular fragment of light lennon soft tissue that measures 0.3 x 0.3 x 0.1 cm. The specimen is totally submitted in one cassette. / SJ:rg 09/13/2021 TC:2 CPT: 84456 x5, 92710
--- NOTE | 2021-09-13 11:06 | OP.EGD_ITS ---
Patient Name: Nori Malone Procedure Date: 09/13/2021 10:20 AM Date of : 1955 Age: 66 Procedure: Upper GI endoscopy Indications: Epigastric abdominal pain Providers: Alex Vazquez MD Referring MD: Nellie Rome Medicines: See the Anesthesia note for documentation of the administered medications Complications: No immediate complications. Procedure: Pre-Anesthesia Assessment: - Prior to the procedure, a History and Physical was performed, and patient medications and allergies were reviewed. The patient's tolerance of previous anesthesia was also reviewed. The risks and benefits of the procedure and the sedation options and risks were discussed with the patient. All questions were answered, and informed consent was obtained. Prior Anticoagulants: The patient has taken no previous anticoagulant or antiplatelet agents. ASA Grade Assessment: II - A patient with mild systemic disease. After reviewing the risks and benefits, the patient was deemed in satisfactory condition to undergo the procedure. After obtaining informed consent, the endoscope was passed under direct vision. Throughout the procedure, the patient's blood pressure, pulse, and oxygen saturations were monitored continuously. The gastroscope was introduced through the mouth, and advanced to the second part of duodenum. The upper GI endoscopy was accomplished without difficulty. The patient tolerated the procedure well. Scope In: 10:30:12 AM Scope Out: 10:34:43 AM Total Procedure Duration Time 0 hours 4 minutes 31 seconds Findings: LA Grade A (one or more mucosal breaks less than 5 mm, not extending between tops of 2 mucosal folds) esophagitis with no bleeding was found 40 cm from the incisors. Biopsies were taken with a cold forceps for histology. A mild Schatzki ring was found at the gastroesophageal junction. Estimated blood loss: A small hiatal hernia was present. Diffuse minimal inflammation characterized by erythema was found in the gastric antrum. Biopsies were taken with a cold forceps for histology. The examined duodenum was normal. Impression: - LA Grade A reflux esophagitis. Biopsied. - Mild Schatzki ring. - Small hiatal hernia. - Gastritis. Biopsied. - Normal examined duodenum. Findings do not correlate with any significant mount of blood loss nor pain Recommendation: - Continue present medications. Procedure Code(s): --- Professional --- 16228, Esophagogastroduodenoscopy, flexible, transoral; with biopsy, single or multiple Diagnosis Code(s): --- Professional --- K21.0, Gastro-esophageal reflux disease with esophagitis K22.2, Esophageal obstruction K44.9, Diaphragmatic hernia without obstruction or gangrene K29.70, Gastritis, unspecified, without bleeding R10.13, Epigastric pain CPT copyright 2017 [employer]. All rights reserved. The codes documented in this report are preliminary and upon director of academic review may be revised to meet current compliance requirements. Alex Vazquez MD 09/13/2021 11:05:56 AM This report has been signed electronically. Number of Addenda: 0 Note Initiated On: 09/13/2021 10:20 AM
--- NOTE | 2021-09-13 11:07 | OP.CCLET_ITS ---
09/13/2021 Nellie Rome [place] [id number] [address] Re : Upper GI endoscopy procedure for Nori Malone Dear Dr. Rome This procedure was performed on Monday, September 13, 2021. My impressions and recommendations are as follows: Impressions : - LA Grade A reflux esophagitis. Biopsied. - Mild Schatzki ring. - Small hiatal hernia. - Gastritis. Biopsied. - Normal examined duodenum. Findings do not correlate with any significant mount of blood loss nor pain Recommendations : - Continue present medications. My findings are described in the full procedure note, which is enclosed. If I can be of further assistance, please feel free to contact me at Doctor phone number(s): Work: . Sincerely, Alex Vazquez MD 09/13/2021 11:05:56 AM This report has been signed electronically.
--- NOTE | 2021-09-13 11:16 | OP.COLON_ITS ---
Patient Name: Nori Malone Procedure Date: 09/13/2021 10:35 AM Date of : 1955 Age: 66 Procedure: Colonoscopy Indications: Epigastric abdominal pain, Abdominal pain in the left lower quadrant Providers: Alex Vazquez MD Referring MD: Nellie oRme Patient Profile: Last Colonoscopy: none. The patient's first colonoscopy is today. Complications: No immediate complications. Procedure: Pre-Anesthesia Assessment: - Prior to the procedure, a History and Physical was performed, and patient medications and allergies were reviewed. The patient's tolerance of previous anesthesia was also reviewed. The risks and benefits of the procedure and the sedation options and risks were discussed with the patient. All questions were answered, and informed consent was obtained. Prior Anticoagulants: The patient has taken no previous anticoagulant or antiplatelet agents. ASA Grade Assessment: II - A patient with mild systemic disease. After reviewing the risks and benefits, the patient was deemed in satisfactory condition to undergo the procedure. After I obtained informed consent, the scope was passed under direct vision. Throughout the procedure, the patient's blood pressure, pulse, and oxygen saturations were monitored continuously. The adult colonoscope was introduced through the anus and advanced to the cecum, identified by appendiceal orifice and ileocecal valve. The colonoscopy was performed without difficulty. The patient tolerated the procedure well. The quality of the bowel preparation was adequate to identify polyps. The ileocecal valve and the appendiceal orifice were photographed. Scope In: 10:38:17 AM Scope Withdrawal Time 0 hours 13 minutes 21 seconds Scope Out: 10:56:28 AM Total Procedure Duration Time 0 hours 18 minutes 11 seconds Findings: The digital rectal exam findings include non-thrombosed external hemorrhoids, non-thrombosed internal hemorrhoids and internal hemorrhoids that prolapse with straining, but require manual replacement into the anal canal (Grade III). A submucosal partially obstructing large mass was found in the proximal transverse colon. The mass was non-circumferential. The mass measured six cm in length. No bleeding was present. This was biopsied with a cold forceps for histology. 4cc trice ink used to tulio the area. A 5 mm polyp was found in the distal transverse colon. The polyp was sessile. The polyp was removed with a cold biopsy forceps. Resection and retrieval were complete. A 4 mm polyp was found in the mid descending colon. The polyp was sessile. The polyp was removed with a cold biopsy forceps. Resection and retrieval were complete. Multiple diverticula were found in the entire colon. Impression: - Non-thrombosed external hemorrhoids, non-thrombosed internal hemorrhoids and internal hemorrhoids that prolapse with straining, but require manual replacement into the anal canal (Grade III) found on digital rectal exam. - Rule out malignancy, partially obstructing tumor in the proximal transverse colon. Biopsied. Trice ink marked. Will need colonic resection - One 5 mm polyp in the distal transverse colon, removed with a cold biopsy forceps. Resected and retrieved. - One 4 mm polyp in the mid descending colon, removed with a cold biopsy forceps. Resected and retrieved. - Diverticulosis in the entire examined colon. Recommendation: - Discharge patient to home. - Resume previous diet. - Continue present medications. - Return to my office in 1 week. - Repeat colonoscopy in 1 year for surveillance based on pathology results. Procedure Code(s): --- Professional --- 09224, Colonoscopy, flexible; with biopsy, single or multiple Diagnosis Code(s): --- Professional --- K64.2, Third degree hemorrhoids K64.4, Residual hemorrhoidal skin tags D49.0, Neoplasm of unspecified behavior of digestive system K56.690, Other partial intestinal obstruction D12.3, Benign neoplasm of transverse colon (hepatic flexure or splenic flexure) D12.4, Benign neoplasm of descending colon R10.13, Epigastric pain R10.32, Left lower quadrant pain K57.30, Diverticulosis of large intestine without perforation or abscess without bleeding CPT copyright 2017 [employer]. All rights reserved. The codes documented in this report are preliminary and upon cena review may be revised to meet current compliance requirements. Alex Vazquez MD 09/13/2021 11:15:39 AM This report has been signed electronically. Number of Addenda: 0 Note Initiated On: 09/13/2021 10:35 AM
--- NOTE | 2021-09-13 11:17 | OP.CCLET_ITS ---
09/13/2021 Nellie Rome [place] [id number] [place] [address] Re : Colonoscopy procedure for Nori Malone Dear Dr. Rome This procedure was performed on Monday, September 13, 2021. My impressions and recommendations are as follows: Impressions : - Non-thrombosed external hemorrhoids, non-thrombosed internal hemorrhoids and internal hemorrhoids that prolapse with straining, but require manual replacement into the anal canal (Grade III) found on digital rectal exam. - Rule out malignancy, partially obstructing tumor in the proximal transverse colon. Biopsied. Trice ink marked. Will need colonic resection - One 5 mm polyp in the distal transverse colon, removed with a cold biopsy forceps. Resected and retrieved. - One 4 mm polyp in the mid descending colon, removed with a cold biopsy forceps. Resected and retrieved. - Diverticulosis in the entire examined colon. Recommendations : - Discharge patient to home. - Resume previous diet. - Continue present medications. - Return to my office in 1 week. - Repeat colonoscopy in 1 year for surveillance based on pathology results. My findings are described in the full procedure note, which is enclosed. If I can be of further assistance, please feel free to contact me at Doctor phone number(s): Work: . Sincerely, Alex Vazquez MD 09/13/2021 11:15:39 AM This report has been signed electronically.
== END 2021-09-13 13:04 | disposition home or self-care (01) ==
LOC: EN 09:11 → AC 09:34
PROVIDERS: PCP Family Medicine; Referring Provider Surgery; Visit Provider Surgery
PROC: 0DJD8ZZ Inspection of Lower Intestinal Tract, Via Natural or Artificial Opening Endoscopic (ICD-10-PCS; CPT 45378; principal; 2021-09-13 10:10)
DX: K29.70 Gastritis, unspecified, without bleeding (principal); K56.690 Other partial intestinal obstruction; K63.5 Polyp of colon; K63.3 Ulcer of intestine; K22.2 Esophageal obstruction; K44.9 Diaphragmatic hernia without obstruction or gangrene; K21.00 Gastro-esophageal reflux disease with esophagitis, without bleeding; K64.2 Third degree hemorrhoids; K64.4 Residual hemorrhoidal skin tags; K57.30 Diverticulosis of large intestine without perforation or abscess without bleeding; Z87.19 Personal history of other diseases of the digestive system
CPT/HCPCS: 45381; 45380; 43239; 88305; 88313; 88342; 93005; J7120; A4648; J2405

== ENCOUNTER 2021-10-11 05:31 | Inpatient (IN) | payer MEDICARE, OTHER, SELFPAY ==
[2021-10-06 12:26] LABS: Hematocrit 26.9 % (37-47); Hemoglobin 8.6 g/dL (12.0-15.0); Mean Corpuscular Hgb 25.7 pg (27.0-32.0); Mean Corpuscular Volume 80.5 fL (81-99); Mean Platelet Vol. 8.9 fl (6.2-12.0); Platelet Count 527 K/mm3 (150-450); RBC Distribution Width CV 13.9 % (11.6-14.6); RBC Distribution Width SD 40.8 fl (35.1-43.9); Red Blood Count 3.34 M/mm3 (4.2-5.4); White Blood Count 7.6 K/mm3 (4.4-11.0)
[2021-10-06 12:34] LABS: International Normalized Ratio 1.1; Prothrombin Time (Protime)PT. 13.7 SECONDS (11.7-14.9)
[2021-10-06 12:35] LABS: Partial Thromboplast Time 30.2 Seconds (24.1-36.2)
[2021-10-06 12:58] LABS: ALB/GLOB Ratio 0.7 RATIO (0.9-2.4); AST(SGOT) 10 U/L (15-37); Alanine Aminotransfer ALT/SGPT 17 U/L (13-56); Albumin, Serum 2.8 g/dL (3.2-5.0); Alkaline Phosphatase 60 U/L (45-117); Anion Gap 4 (5-15); BUN 16 mg/dL (7-18); BUN/Creat Ratio 14.4 RATIO (10-20); Chloride 107 mmol/L (98-107); Creatinine, Serum 1.11 mg/dL (0.55-1.02); EST Glomerular Filtration Rate 52 mL/min (>60); Est Glom Filt Rate - Afr Amer 63 mL/min (>60); Globulin 3.8 g/dL (2.2-4.2); Glucose 109 mg/dL (74-106); Protein, Total 6.6 g/dL (6.4-8.2); Sodium Level 141 mmol/L (136-145)
[2021-10-06 13:18] LABS: Thyroid Stim Hormone (TSH) 0.86 uIU/mL (0.358-3.74)
[2021-10-07 10:28] LABS: Carcinoembryonic Antigen 0.7 ng/mL (0.0-4.7)
[2021-10-11] VITALS (17 sets, daily range): BP systolic 116–146; BP diastolic 62–74; PULSE 66–78; RESP 16–18; TEMP 36.7–37.1; O2SAT 94–99; BMI 39.1
--- NOTE | 2021-10-11 | COL_PTH ---
PATIENT: ROMAN RODRIGUEZ LOC: [facility] U#:[id number] AGE/SX: 66/F ROOM: [facility]314 RE10/11/[address]: Dr. Alex Vazquez MD : 1955 BED: 1 DIS: 10/13/2021 SPEC #: [id number] RECD: 10/11/21 10:31 STATUS: COLLEEN KIRK #: [id number] LILI: 10/11/21 00:[address]: Alex Vazquez DEPT: SURGICAL PATHOLOGY RECD BY: Eun Duncan ENTERED: 10/11/21 11:15 SP TYPE: COLON OTHR DR: Dr. Nellie Rome MD Tissues: A - Colon, NOS B - Colon, NOS C - Gallbladder, NOS Procedures: Frozen Section (charge) Surgery Specimen Level III Surgery Specimen Level V HEADER OPERATION: ERAS, laparoscopic hemicolectomy, laparoscopic cholecystectomy PRE-OP DIAGNOSIS: Epigastric abdominal pain, lower abdominal pain, cholecystitis with cholelithiasis, history of diverticulitis, stool bloody TISSUE SUBMITTED: A ? Right colon and mass, B ? Extra pieces of right colon, C - Gallbladder FROZEN SECTION DIAGNOSIS A. Right colon, colectomy: Ulceration with submucosal lipomatous lesion. AM:souleymane Case has been reviewed in consultation with Dr. Nathan who concurs with the above diagnosis. IDC:JULIA MICROSCOPIC DIAGNOSIS A. Right colon, colectomy: A polypoid submucosal lipoma with focal ulceration, associated inflammation and granulation tissue reaction (4.5?cm in greatest dimension). Focal diverticulosis. Appendix with focal fibrous luminal obliteration. Nine benign pericolonic lymph nodes. Omentum, no pathologic diagnosis. B. Extra pieces of right colon: Pieces of small intestinal and colonic tissue, no pathologic diagnosis. C. Gallbladder, cholecystectomy: Chronic cholecystitis and cholelithiasis. JULIA:souleymane 10/13/2021 COMMENT Please make reference to previous specimen ([id number]) proximal transverse colon, biopsy with diagnosis of ?extensive ulceration, fibrinopurulent exudation and granulation tissue reaction, negative for malignancy.? Case has been reviewed in consultation with Dr. Gunderson who concurs with the above diagnosis. IDC:GUSTABO MICROSCOPIC DESCRIPTION Slides are reviewed. GROSS DESCRIPTION A - Received fresh for frozen section diagnosis labeled with the patient's name is a specimen designated right colon and mass. The specimen consists of a right hemicolectomy specimen consisting of segment of cecum with ascending colon with attached pericolonic adipose tissue and omentum, small portion of small intestine and appendix. The cecum with ascending colon measures 17 cm in length, segment of small intestine measures 1 cm in length and the appendix measures 8 cm in length and 0.2 to 0.5 cm in diameter. Both margins are stapled. The specimen is opened and reveals a lennon polypoid mass measuring 4.5 x 3 x 1.2 cm. This mass is 9 cm from the distal resection margin and 7 cm away from the ileocecal valve. Sections of this mass reveal lennon-yellow adipose cut surfaces. A section is submitted for frozen section diagnosis. More dictation will follow after fixation. Pericolonic adipose tissue is fixed in lymph node revealing solution. / SJ:souleymane 10/11/2021 Sections of the appendix reveal pin-point lumen. No mass lesion is identified. Sections of the colonic wall reveal a few diverticula. No obviously ruptured diverticula are noted. Sections of omentum do not reveal any mass lesion. Sections of the pericolonic adipose tissue reveal multiple lymph nodes, largest lymph node measures 1 cm in greatest dimension. [employer] sections are submitted in 14 cassettes as follows: 1 - frozen section, mass, 2 - proximal and distal resection margin, 3 - appendix, 48?- tumor, 9 - small and largest intestine, largest intestine with diverticula, 10 - ileocecal valve, 11??omentum and one bisected lymph node, 12 - one bisected lymph node, 13 - one bisected lymph node, 14 - multiple lymph nodes. / : 10/12/2021 B - Received in fixative is one container labeled with the patient's name and designated extra pieces of right colon. The specimen consists of a piece of colonic tissue, donut shape, measuring 4.5 x 1.5 x 1 cm. Multiple janette are noted in this piece. Also present in the container is a second donut-shaped piece of tissue measuring 1 x 1 x 0.5 cm. [employer] sections are submitted in two cassettes as follows: 1 - smaller piece, entirely submitted, 2 - larger piece. / : 10/12/2021 C - Received is one container labeled with the patient's name and designated gallbladder. The specimen consists of a gallbladder measuring 12 cm in length and up to 4 cm in diameter. The external surface is pink-lennon, smooth and glistening for the most part. Focally it is granular, hemorrhagic and contains cautery artifact. The gallbladder contains green-yellow mucoid bile and two ovoid, multifaceted brownish-black stones each measuring 2.5 cm in greatest dimension. The mucosa is bile-stained and without any mass lesions. The gallbladder wall measures up to 0.5 cm in thickness. [employer] sections from the gallbladder and the cystic duct are submitted in one cassette. / : 10/12/2021 TC:1 CPT:77266, 73841 x2, 05994
[2021-10-11] MEDS: Lactated Ringers 1,000 ML 40 ML IV ×3 (06:05→15:31)
[2021-10-11] MEDS: Acetaminophen 500 MG Tablet 1000 MG PO (06:36)
[2021-10-11] MEDS: Gabapentin 600 MG Tablet PO (06:39)
--- NOTE | 2021-10-11 06:39 | PCM.HP.BLA ---
History and Physical Date of Admission: 10/11/21 Allergies acetazolamide [From Diamox Sequels] Adverse Reaction (Verified 09/19/21 14:43) DEPRESSIONduloxetine [From Cymbalta] Adverse Reaction (Verified 09/19/21 14:43) DEPRESSIONtetracycline Adverse Reaction (Verified 09/19/21 14:43) DEPRESSION Medications omega-3 fatty acids 1,000 mg capsule (Fish Oil Concentrate) 2,000 mg PO QDAY SUPPLEMENT 06/26/17 [History Confirmed 09/19/21] acetaminophen 325 mg tablet (Tylenol) 650 mg PO Q4H PRN Pain 02/02/21 [History Confirmed 09/19/21] cholecalciferol (vitamin D3) 125 mcg (5,000 unit) tablet (Vitamin D3) 125 mcg PO DAILY SUPPLEMENT 02/02/21 [History Confirmed 09/19/21] lisinopril 20 mg-hydrochlorothiazide 25 mg tablet 1 tab PO DAILY BP 02/02/21 [History Confirmed 09/19/21] magnesium 250 mg tablet 250 mg PO DAILY 07/04/21 [History Confirmed 09/19/21] omeprazole 40 mg capsule,delayed release 40 mg PO DAILY 09/08/21 [History Confirmed 09/19/21] PFSH Medical History? Abdominal pain Anemia Anxiety Arthritis Back pain Cancer Chest pain CPAP (continuous positive airway pressure) dependence Diverticulitis Gastric reflux Heartburn Hemorrhoids History of diverticulitis History of pain when walking History of renal disease Hoarseness Hypertension Nodular thyroid disease Non-smoker Shortness of breath on exertion Sleep apnea Stool bloody Stool color black Syncope Thyroid disease Thyroid nodule Wears glasses Surgical History? history excision right breast lump History of nephrectomy, left Hx of colonoscopy S/P thyroid biopsy Family History? Mother Colon cancer HypertensionFather Diabetes Social History? household members:? spouse housing:? house Smoking Status:? Never smoker alcohol intake:? never substance use type:? does not use HPI HPI HPI: ROMAN RODRIGUEZ, is a 66 F who presents to the office today for surgical follow-up. On September 13, 2021 the patient had combined upper and lower endoscopy.? The upper endoscopy demonstrated reflux esophagitis with a mild Schatzki ring and a small hiatal hernia.? No significant blood loss identified.? At the same time she had a colonoscopy which demonstrated hemorrhoids and a submucosal partially obstructing large mass found in the proximal transverse colon.? Trice ink was used to tulio this area.? A 5 mm polyp was seen in the distal transverse colon.? A 4 mm polyp in the descending colon.? Gastric biopsy showed mild gastritis H. pylori was negative.? Reflux esophagitis was identified.? Biopsy of the proximal transverse colon mass showed extensive ulceration fibrinopurulent exudation and granulation tissue no evidence for malignancy.? The distal transverse colon polyp was hyperplastic and the descending colon polyp inflammatory.? In addition the patient had a right upper quadrant ultrasound on September 08, 2021 demonstrating cholelithiasis.? A abdominal pelvic CT scan performed the same day demonstrated evidence of the right nephrectomy with no evidence of residual recurrent metastatic renal cell carcinoma.? Cholelithiasis was identified.? CT felt that there was a 5 cm lipoma in the mid transverse colon with circumferential wall thickening possibly suggesting intussusception or malignant soft tissue mass.? Finally there was a large nodule in the left lobe of the thyroid with substernal extension.? It is of note that a thyroid ultrasound of March 08, 2021 suggested that there were bilateral left greater than right thyroid nodules with no significant interval change from the previous exam of June 21, 2014 I had initially been asked to see her because of epigastric pain episode of diaphoresis as well as lower abdominal pain and episode of blood per rectum. The patient presents today to discuss treatment options.? She notes that her previous nephrectomy done for renal cancer was also scheduled to be done laparoscopically but then had to be done through a large right flank incision.? She demonstrates a transverse incision in the right flank extending across the abdomen not quite to the midline. My previous notes reflect the following Allergies acetazolamide [From Diamox Sequels] Adverse Reaction (Verified 09/07/21 13:27) DEPRESSIONduloxetine [From Cymbalta] Adverse Reaction (Verified 09/07/21 13:27) DEPRESSIONtetracycline Adverse Reaction (Verified 09/07/21 13:27) DEPRESSION Medications omega-3 fatty acids 1,000 mg capsule (Fish Oil Concentrate) 2,000 mg PO QDAY SUPPLEMENT 06/26/17 [History Confirmed 09/07/21] acetaminophen 325 mg tablet (Tylenol) 650 mg PO Q4H PRN Pain 02/02/21 [History Confirmed 09/07/21] cholecalciferol (vitamin D3) 125 mcg (5,000 unit) tablet (Vitamin D3) 125 mcg PO DAILY SUPPLEMENT 02/02/21 [History Confirmed 09/07/21] lisinopril 20 mg-hydrochlorothiazide 25 mg tablet 1 tab PO DAILY BP 02/02/21 [History Confirmed 09/07/21] magnesium 250 mg tablet 250 mg PO DAILY 07/04/21 [History Confirmed 09/07/21] PFSH Medical History?(Updated 09/07/21 @ 15:[address] Alex Vazquez MD) Abdominal pain Anxiety Arthritis Back pain Chest pain CPAP (continuous positive airway pressure) dependence Diverticulitis Heartburn Hemorrhoids History of diverticulitis History of pain when walking History of renal disease Hypertension Nodular thyroid disease Non-smoker Shortness of breath on exertion Sleep apnea Thyroid disease Thyroid nodule Wears glasses Surgical History? history excision right breast lump Hx of colonoscopy S/P thyroid biopsy Family History? Mother Colon cancer HypertensionFather Diabetes Social History? household members:? spouse housing:? house Smoking Status:? Never smoker alcohol intake:? never substance use type:? does not use HPI HPI HPI: Kevyn RODRIGUEZ, is a 66 F who presents to the office today for surgical consultation regarding potential upper GI bleed.? The patient is referred by Dr. Nellie Rome and a written copy of my surgical consult recommendations will return to her.? It is pertinent that her past history is notable for hypertension and fibromyalgia and sleep apnea and GE reflux disease and obesity and diverticulitis and renal cell carcinoma status post right nephrectomy February 2021.? It is of additional note that her mother had colon cancer and pancreatic cancer.? When she saw Dr. Nellie Rome on September 01, 2021 the patient had complained of an episode of nausea and lightheadedness and epigastric pain followed by a red color to her stool.? By report she had been treated the month prior for suspected diverticulitis with a course of oral antibiotics.? Left lower quadrant pain improved.? She was found to be fecal occult blood positive.? White blood cell count was 13,000 with a hemoglobin 11.3 hematocrit 34.9 and a platelet count of 4 96,000.It is of note that previously on February 07, 2021 the patient had a white count of 12,000 with a hemoglobin 14.2 hematocrit of 42.2 and a platelet count of 4 and 17,000 Going back to December 28, 2020 CT scan was obtained at [facility] demonstrated a 19 cm mass in the right kidney there was diverticulosis with thickening of the distal descending colon wall with inflammation consistent with acute diverticulitis.? There was a small umbilical hernia with fat.? Multiple gallstones in the gallbladder identified. The patient Sunday if symptoms and history.? She states a week ago she developed epigastric pain felt lightheaded had back pain with sweating and pale.? Even prior to that she has been having nondescript description mid abdominal pain.? She noticed a red tint to her stool.? She states that she does not have a history of peptic ulcer disease.? She does not take NSAIDs.? She thinks her previous colonoscopy of which she has had 2 was in 2017.? She does not recall any acute findings. She personally denies any heart disease.? It is of note that she successfully underwent a right nephrectomy February 09, [address] Jones for large right kidney cancer.? She states there were no cardiac issues at that time. The patient's not aware that she has had any gallbladder disease however her previous CAT scan did demonstrate cholelithiasis. She states that she did have an episode of sigmoid diverticulitis.? That is why she had the CT scan performed December 28, 2020.? It is of note that that also demonstrated a fat-containing umbilical hernia but the patient states that she was unaware of that. ROS General General: Yes weight change and fatigue; No appetite, colon cancer, breast cancer or weakness HEENT HEENT: No difficulty swallowing, eye injury, eye surgery, swollen glands or hoarseness Endo Endocrine: No thyroid disease, diabetes mellitus, thyroid cancer, Hair loss, heat intolerance or cold intolerance Skin Skin: No rash or changing moles Breast Breast: No left breast lump, right breast lump, nipple discharge, breast pain, abnormal mammogram, abnormal US or breast enlargement Musc Musculoskeletal: Yes arthritis; No back problems, rheumatoid arthritis, gout or joint pain Cardio Cardiovascular: Yes high blood pressure; No murmur, pacemaker, heart disease, atrial fibrillation, heart attack, heart stent, palpitations, shortness of breat with exertion or chest pain Psych Psychiatric: No depression, anxiety or hearing voices Resp Respiratory: No shortness of breath, Yes sleep apnea, No cough, No COPD, No asthma, No emphysema and No wheezing Gastro Gastrointestinal: Yes abdominal pain, No nausea or vomiting, Yes diarrhea, No constipation, Yes blood in stool, No acid reflux, Yes hemorrhoids, No ulcers, No gallbladder problem and Yes black,tarry stools Jaxon Hematologic: No blood thinners, No blood disorders, No bleeding, No anemia and No blood clots Neuro Neurologic: No system reviewed and no additional complaints, except as documented, No as per HPI, No abnormal gait, No abnormal hearing, No abnormal movements, No abnormal speech, No behavioral changes, No burning sensations, No confusion, No convulsions, No disequilibrium, Yes dizziness, No localized weakness, No frequent falls, No headache(s), No lack of coordination, No loss of vision, No memory loss, No numbness, No other visual disturbances, No radicular pain, No restless legs, No sensory deficit, No syncope, No tingling, No tremor(s), No weakness and No other Exam Const General: cooperative, comfortable and no acute distress Nutritional Appearance: obese [facility] Head: normal to inspection Eyes General: appearance normal, both eyes and all related structures Neck Neck: normal visual inspection Chest Chest palpation & inspection: normal inspection of the chest Resp Effort & Inspection: normal respiratory effort Auscultation: clear to auscultation bilaterally Cardio Rate: regular rate Rhythm: regular rhythm GI Palpation: soft Auscultation: normal bowel sounds Other: Patient carries majority of weight in her abdomen with a very large abdomen and overlying pannus.? No focal tenderness.? Very difficult to determine any internal organs.? Easily reducible fat-containing umbilical hernia. Skin General: no rashes or lesions noted Neuro General: patient alert, patient awake and patient oriented x3 Extrem General: normal to inspection and no calf tenderness Psych Appearance: grossly normal Assessment and Plan Assessment and Plan (1) Epigastric abdominal pain: ?Status:?Acute (2) Lower abdominal pain: ?Status:?Acute (3) History of diverticulitis: ?Status:?Acute (4) History of renal disease: ?Status:?Acute ?Comment: KIDNEY MASS (5) Cholecystitis with cholelithiasis: ?Status:?Acute ?Plan: Complicated presentation.? 66-year-old female who had severe epigastric pain with diaphoresis sweating nausea.? This could be related to her cholelithiasis and an acute biliary attack.? Recommend gallbladder ultrasound. However anteceding that she has been having a very nondescript complaint of low mid abdominal pain.? She states that previously she had a documented bout of diverticulitis identified on CT scan which actually identified her right renal cancer.? She is not sure where her current mid abdominal pain feels like her diverticulitis but she thinks it somewhat different.? She has a known umbilical hernia but that on clinical exam seems to be reducible. She was scheduled in September per to have a chest abdomen and pelvic CT and follow-up of her right renal cell cancer. To further complicate features the patient suggest that she thinks she sees blood in her stool.? Whether this could be related to her epigastric pain and possible peptic ulcer disease or whether this could be related to diverticular disease is not clear.? It would appear that she has had a slight decrease in her hemoglobin hematocrit.? She is not currently describing stool discoloration.? She is not describing severe acute abdominal pain. I recommend a gallbladder ultrasound.? I recommend CT scan of the abdomen and pelvis which can be included on the previously ordered test.? I recommend a esophagogastroduodenoscopy with possible biopsy and colonoscopy with possible biopsy or polypectomy as indicated. Pending those findings if an acute colonic source is identified i.e. colitis or diverticulitis that she may need to be treated for that.? If the epigastric pain is felt to be more likely consistent with a bout of acute cholecystitis cholelithiasis then I would consider offering her a laparoscopic cholecystectomy.? We will need to be cognizant of her umbilical hernia with fibrofatty tissue.? We will need to be cognizant of possible metastatic renal disease. I will try to schedule and expedite her care.? I appreciate the opportunity of assisting with her surgical management. Copy: Dr. Nellie Vazquez M.D., F.A.C.S. I have re-examined the patient. There are no clinical changes since date of exam. Alex Vazquez M.D., F.A.C.S. Assessment & Plan Assessment/Plan (1) Epigastric abdominal pain: (2) Lower abdominal pain: (3) Cholecystitis with cholelithiasis: (4) History of diverticulitis: (5) Stool bloody: PLAN: Plan Plan to proceed today with a esophagogastroduodenoscopy with possible biopsy and colonoscopy possible biopsy or polypectomy as indicated.? The patient is aware of the technique, benefit, risk and alternatives.? We will proceed as noted. Alex Vazquez M.D., F.A.C.S. ROS General General: Yes weight change and fatigue; No appetite, colon cancer, breast cancer or weakness HEENT HEENT: No difficulty swallowing, eye injury, eye surgery, swollen glands or hoarseness Endo Endocrine: No thyroid disease, diabetes mellitus, thyroid cancer, Hair loss, heat intolerance or cold intolerance Skin Skin: No rash or changing moles Breast Breast: No left breast lump, right breast lump, nipple discharge, breast pain, abnormal mammogram, abnormal US or breast enlargement Musc Musculoskeletal: Yes arthritis; No back problems, rheumatoid arthritis, gout or joint pain Cardio Cardiovascular: Yes high blood pressure; No murmur, pacemaker, heart disease, atrial fibrillation, heart attack, heart stent, palpitations, shortness of breat with exertion or chest pain Psych Psychiatric: No depression, anxiety or hearing voices Resp Respiratory: No shortness of breath, Yes sleep apnea, No cough, No COPD, No asthma, No emphysema and No wheezing Gastro Gastrointestinal: Yes abdominal pain, No nausea or vomiting, Yes diarrhea, No constipation, Yes blood in stool, No acid reflux, Yes hemorrhoids, No ulcers, No gallbladder problem and Yes black,tarry stools Jaxon Hematologic: No blood thinners, No blood disorders, No bleeding, No anemia and No blood clots Neuro Neurologic: No system reviewed and no additional complaints, except as documented, No as per HPI, No abnormal gait, No abnormal hearing, No abnormal movements, No abnormal speech, No behavioral changes, No burning sensations, No confusion, No convulsions, No disequilibrium, Yes dizziness, No localized weakness, No frequent falls, No headache(s), No lack of coordination, No loss of vision, No memory loss, No numbness, No other visual disturbances, No radicular pain, No restless legs, No sensory deficit, No syncope, No tingling, No tremor(s), No weakness and No other Exam Const General: cooperative, comfortable and no acute distress [facility] Head: normal to inspection Eyes General: appearance normal, both eyes and all related structures Resp Effort & Inspection: normal respiratory effort Auscultation: clear to auscultation bilaterally Cardio Rate: regular rate Rhythm: regular rhythm GI Inspection: obesity Palpation: no hepatosplenomegaly Auscultation: normal bowel sounds Musc Cervical Spine: normal cervical lordosis Neuro General: patient alert, patient awake and patient oriented x3 Extrem General: no calf tenderness Psych Mood: anxious mood Assessment and Plan Assessment and Plan (1) Stool bloody: ?Status:?Acute (2) Epigastric abdominal pain: ?Status:?Acute (3) Lower abdominal pain: ?Status:?Acute (4) Cholecystitis with cholelithiasis: ?Status:?Acute (5) Mass of hepatic flexure of colon: ?Status:?Acute Plan I have demonstrated to the patient the findings on colonoscopy.? Because of this inflamed mass I am presuming this is the source of her rectal bleeding although the patient does have hemorrhoids and does have diverticular disease.? I would concur that I believe that this mass in the colon is likely at least partially etiologic to her abdominal pain with suspected intermittent intussusception.? She also has chronic cholecystitis cholelithiasis.? To complicate features tremendously she has had the radical nephrectomy on the right done through a long oblique right transverse incision.? This likely will greatly complicate our surgical approach. I have discussed with her plans for a laparoscopic cholecystectomy with selective cholangiography.? Laparoscopic bilateral transverses abdominal plane block.? And hopefully a laparoscopic right colectomy.? The area in question has been Trice ink tattooed.? She is aware that I may need to convert to a hand-assisted approach or possibly to complete open approach secondary to her previous renal surgery.? She is aware of the technique, benefit, risk, alternatives.? No guarantees are offered to be able to achieve this without a ileostomy or colostomy. She is aware that we utilize enhanced recovery technique.? She is aware that early mobilization of the patient postoperatively is bryant to recovery. She has had an opportunity to ask and have questions answered.? She is aware that I am anticipating this to be a technically more demanding procedure.? She does indeed have an umbilical hernia but I do not plan on addressing that at this time.? As noted she had thyroid nodules identified on CT but this appears to be unchanged and is not part of my current surgical evaluation. I appreciate the opportunity of assisting with her surgical care.? We will schedule and proceed as noted. Copy: Dr. Nellie Vazquez M.D., F.A.C.S. I have re-examined the patient. There are no clinical changes since date of exam. Alex Vazquez M.D., F.A.C.S.
--- NOTE | 2021-10-11 06:40 | DCINST_ITS ---
Discharge Instructions Diet Discharge Diet: Light diet - advance as tolerated Activity Discharge Activity: May Not Drive (May not drive for 5 to 7 days.) and May Shower Weight Bearing Status: Full weight bearing Dressing / Incision Call your doctor if your incision/area has: Continuous Slow Oozing, Increased Pain/ Swelling and Foul Smelling Discharge Call your doctor if you observe: Fever of 101 or Higher Follow Up Care Please Follow Up With: Alex Vazquez MD When: Call [phone] for office appointment in approximately 10 days Test Results: Test results from this visit will be discussed in further detail at your follow- up appointment, if applicable. Discharge Plan Admission Admit Date/Time: 10/11/21 05:31 Primary Reason for Your Visit: Colonic mass with intermittent intussusception. Chronic cholecystitis chol Attending Provider: Alex Vazquez Primary Care Provider: Nellie Rome Instructions Additional Instructions / Restrictions: Recommend taking Tylenol 650 mg every 4 hours as needed for pain or discomfort for 3 additional days from discharge. If no pain or discomfort, you do not have to take any Tylenol. You may continue to use a heating pad for comfort. Continue to follow the transitional diet until we see you back in the office for follow-up. Discharge Orders/Prescriptions Prescriptions: Continued omega-3 fatty acids [Fish Oil Concentrate] 1,000 mg capsule 2,000 mg PO QDAY magnesium 250 mg tablet 400 mg PO DAILY lisinopril-hydrochlorothiazide 20-25 mg Tablet 1 tab PO DAILY cholecalciferol (vitamin D3) [Vitamin D3] 125 mcg (5,000 unit) Tablet 125 mcg PO DAILY acetaminophen [Tylenol] 325 mg Tablet 650 mg PO Q4H PRN (Reason: Pain) omeprazole 40 mg Capsule,Delayed Release(Dr/Ec) 20 mg PO BID Discontinued metronidazole 500 mg tablet 500 mg PO DIRECTED Rx Instructions: Take 2 tabs at 1:00, 3:00, and 11:00 on the day before surgery neomycin 500 mg tablet 500 mg PO DIRECTED Rx Instructions: Take 2 tabs at 1:00, 3:00, and 11:00 on the day before surgery Referrals / Follow Up: Nellie Rome MD [Primary Care Provider] - Alex Vazquez MD [Med Staff - Active Staff] - (Please call the office to schedule an appointment. Follow-up at 10 days from surgery) Disposition Disposition (needs filled in before D/C Order can be placed): Home, Self Care
[2021-10-11] MEDS: Cefotetan 2 GM in 0.9% NS 100 ML IV (08:00)
[2021-10-11] MEDS: BUPIVACAINE LIPOSOME/PF 20 ML VIAL OPERA.SITE (09:50)
[2021-10-11] MEDS: Bupivacaine 0.25% 30 ML Vial (09:50)
[2021-10-11] MEDS: 0.9% Normal Saline (Pres. free 10 ML Vial ×2 (09:50)
--- NOTE | 2021-10-11 11:20 | OP.PCM_ITS ---
Report of Operation Date of Procedure: 10/11/21 Pre-Operative Diagnosis: Intermittent proximal transverse colon intussusception with partial large bowel obstruction secondary to suspected lipoma. Chronic cholecystitis cholelithiasis Post-Operative Diagnosis: Same Surgery/Procedure Performed:: Laparoscopic cholecystectomy. Laparoscopic right colectomy. Bilateral transverses abdominal plane block Description of Surgical Findings:: Timeout informed consent was obtained. 66-year-old female was taken to the operating placed upon the table. There was difficulty with intubation with initial failed intubation. The patient had to be bag mask. An LMA had to be put in urgently. Dr. Thomas entered the room. Then used a glide scope successfully intubated the patient. There was discussion among anesthesia providers patient was not felt to have aspirated. She received 2 g of cefotetan. At the request in order per Dr. Thomas the patient received 1 unit of packed red cells which was initiated before we started the surgical proc edure. The abdomen was sterilely prepped and draped. A footboard had been placed. Ioban draping was used. 0.25% Marcaine 60 cc with 20 cc of Exparel was diluted with saline to 120 cc. This was used as local and for the tap block. Patient has an umbilical hernia but approximately 8 cm superiorly because of her very large overhanging pannus I made a vertical incision placed a 5 mm port and used a Visiport technology to get access cleanly to the abdomen. The falciform ligament be partially incised to allow for placement of a 5 mm port in the epigastric area. That port was done with balloon anchoring. 5 mm port was placed in the right lateral subcostal area and a 5 mm port in the right midclavicular line mid abdomen. There appeared to be adhesions of low omentum and proximal transverse colon to the anterior abdominal wall with a suggestion of some partial torsion on that. Photograph was obtained. Used harmonic scalpel to free up the right colon to give access to the gallbladder. Then there appeared to be a staple line at the inferior margin of the liver which was adhering to the gallbladder inferiorly. Tedious careful sharp and blunt dissection was required to free the gallbladder from this otherwise unknown staple lines. Then I did blunt dissection of the infundibulum and carefully and tediously secondary to the patient's significant body habitus finding was able to identify the critical view with the cystic duct and cystic artery. Great care was taken to assure this. I placed 2 Hem-o-susie clips on the cystic duct and 1 on the gallbladder side prior to transecting it. Cystic artery was clipped twice proximally once distally prior stenting it. The gallbladder was dissected free from the liver bed using a combination of harmonic scalpel as well as hook electrocautery. No spillage of bile or stones incurred. The gallbladder was then placed in a retrieval bag. Blood loss is been quite minimal. Attention was drawn to the right colon. The white line of Toldt was incised along the right paracolic gutter. It was noted that the right colon actually was quite mobile. Trice ink was identified in the proximal transverse colon and the posterior peritoneum was incised elevating the hepatic flexure of the colon. Where needed greater omentum was transected overlying the middle transverse colon to allow for better mobilization. Having achieved that I then performed a bilateral transverses abdominal plane block using the local. This was done under complete laparoscopic visualization. Again because of the patient's body habitus I needed to use a 20-gauge spinal needle in order to get down to the fascial level. Memory deflated the abdomen through an antiviral valve. The vertical incision that had been placed superior to the umbilicus was now lengthened vertically and I then placed a medium wound protector. I was able to remove the right colon transverse colon and I performed a mesenteric transection using combination of harmonic scalpel and Hem-o-susie clips and fluoroscopy's silk sutures. I had it mobilized all the way to the mid transverse colon and the portion that had a palpable mass and had intussusception was now going to be resected. Using a 75 mm stapler to transect the mid transverse colon and the terminal ileum. Made enterotomies in the bowel was placed cytocide and use the 75 mm stapler to create the anastomosis. Hemostasis was intact. The enterotomy site was closed with a TA 60 stapler. I then did use a 4-0 silk to imbricate portion of the suture line. Close the mesenteric trap with a running 4-0 silk. The bowel appeared to be completely viable and there is been absolutely no spillage throughout there is motion of the procedure. Valve appeared to be in good position was dropped back within the abdomen. Gowns gloves draping was changed. The midline fascia was closed with a running #1 PDS in a small suture technique. The subdermal tissues were approximated opted for Monocryl and skin edges were approximated with running or interrupted 4-0 Monocryl. It is of note that I did reinsufflate to a pressure of 8 travis of pressure to inspect the secured bowel which was nicely intact I placed the greater omentum overlying it. Inspected for any evidence of bleeding of which there was none. Sponge and instrument and needle counts were reported to the surgeon to correct. Specimen right colon. Gallbladder. Blood loss 150 cc. Drains none Surgeon: Alex Vazquez Type of Anesthesia: General and Local Anesthesiologist: Emely Mejía
[2021-10-11] MEDS: Ondansetron ODT 4 MG Tablet PO (15:31)
[2021-10-11] MEDS: Pantoprazole Sodium 20 MG Tablet PO ×2 (15:31→21:12)
--- NOTE | 2021-10-11 16:34 | PCM.PN.SRG ---
Subjective Subjective She is slowly awaking from surgery and anesthesia. No specific complaints. Objective Data Objective Data Vital Signs: Vital Signs Temp Pulse Resp BP Pulse Ox O2 Del Method O2 Flow Rate 98.2 F 75 16 144/72 H 95 Room Air 4 10/11/21 14:44 10/11/21 14:44 10/11/21 14:44 10/11/21 14:44 10/11/21 14:44 10/11/21 14:44 10/11/21 13:45 Oxygen Flow Rate (L/min) 4 Oxygen Delivery Method Room Air Weight: 213 lb 13.574 oz Body Mass Index (BMI) 39.1 Intake & Output: Intake and Output for Last 24 Hours 10/09/21 10/10/21 10/11/21 23:59 23:59 23:59 Intake Total 1372.67 / 1372.67 Output Total 335 / 335 Balance 1037.67 / 1037.67 Lab / Micro Data Result Diagrams: 10/06/21 11:44 10/06/21 11:44 Labs: Laboratory Results - last 24 hr 10/11/21 06:05: Blood Type O POSITIVE, Antibody Screen NEGATIVE, Crossmatch See Detail Physical Exam Const Constitutional Narrative: Patient is alert aware of her situation in place she is lying in bed with head of bed elevation family members are present Assessment & Plan Assessment/Plan (1) Cholecystitis with cholelithiasis: (2) Mass of hepatic flexure of colon: PLAN: Plan I have vigorously recommended the patient early mobilization as well as use of her incentive spirometer. She has had an opportunity to ask and have questions answered. She is aware that the procedure was accomplished laparoscopically. I anticipating good prognosis. Alex Vazquez M.D., F.A.C.S.
[2021-10-11] MEDS: Acetaminophen 325 MG Tablet 650 MG PO (21:12)
[2021-10-11] MEDS: Docusate Sodium 100 MG Capsule PO (21:12)
[2021-10-12] VITALS (7 sets, daily range): BP systolic 113–136; BP diastolic 64–72; PULSE 60–68; RESP 12–18; TEMP 36.5–37.1; O2SAT 95–98; BMI 39.1
[2021-10-12] MEDS: oxyCODONE 5 MG Tablet PO (01:51)
--- NOTE | 2021-10-12 05:56 | PCM.PN.SRG ---
Subjective Subjective Found the patient up and walking with nursing assistance. She has a smile on her face. She was able to rest overnight. Her post anesthesia fog has lifted. No current nausea. She is burping but no flatus. Pain is tolerable. Objective Data Objective Data Vital Signs: Vital Signs Temp Pulse Resp BP Pulse Ox O2 Del Method O2 Flow Rate 97.7 F L 68 16 113/64 98 CPAP 4 10/12/21 02:44 10/12/21 02:44 10/12/21 02:44 10/12/21 02:44 10/12/21 02:44 10/12/21 02:44 10/11/21 13:45 Oxygen Flow Rate (L/min) 4 Oxygen Delivery Method CPAP Weight: 213 lb 13.574 oz Body Mass Index (BMI) 39.1 Intake & Output: Intake and Output for Last 24 Hours 10/10/21 10/11/21 10/12/21 23:59 23:59 23:59 Intake Total 1612.67 / 1612.67 Output Total 735 / 1035 300 / 300 Balance 877.67 / 577.67 -300 / -300 Lab / Micro Data Result Diagrams: 10/06/21 11:44 10/06/21 11:44 Labs: Laboratory Results - last 24 hr 10/11/21 06:05: Blood Type O POSITIVE, Antibody Screen NEGATIVE, Crossmatch See Detail Physical Exam Resp normal respiratory effort GI GI Narrative: Distended, intermittent bowel sounds, dressings clean and dry Assessment & Plan Assessment/Plan (1) Cholecystitis with cholelithiasis: (2) Mass of hepatic flexure of colon: PLAN: Plan The patient will continue to ambulate and mobilize. We will hold her clear liquids. Remove the [place] catheter. Incentive spirometry encouraged. Will provide a K pad for comfort Alex Vazquez M.D., F.A.C.S.
[2021-10-12 06:18] LABS: Hematocrit 31.9 % (37-47); Hemoglobin 10.5 g/dL (12.0-15.0); Mean Corp Hgb Conc 32.9 g/dL (32-36); Mean Corpuscular Hgb 26.6 pg (27.0-32.0); Mean Platelet Vol. 8.7 fl (6.2-12.0); Platelet Count 534 K/mm3 (150-450); RBC Distribution Width CV 15.1 % (11.6-14.6); RBC Distribution Width SD 43.4 fl (35.1-43.9); Red Blood Count 3.94 M/mm3 (4.2-5.4); White Blood Count 19.8 K/mm3 (4.4-11.0)
[2021-10-12 06:46] LABS: Anion Gap 4 (5-15); BUN 13 mg/dL (7-18); BUN/Creat Ratio 9.9 RATIO (10-20); Calcium,Total 8.9 mg/dL (8.5-10.1); Chloride 105 mmol/L (98-107); Creatinine, Serum 1.31 mg/dL (0.55-1.02); EST Glomerular Filtration Rate 43 mL/min (>60); Est Glom Filt Rate - Afr Amer 52 mL/min (>60); Estimated Creatinine Clearance 33.41 ml/min; Glucose 126 mg/dL (74-106); Potassium 4.2 mmol/L (3.5-5.1); Sodium Level 137 mmol/L (136-145)
[2021-10-12] MEDS: Acetaminophen 325 MG Tablet 650 MG PO ×3 (07:49→21:19)
--- NOTE | 2021-10-12 09:45 | CASEMGMT ---
RN CM Face to Face with patient for initial transition planning/care coordination assessment. RN CM introduced self and role at [facility]. Patient sitting in chair, alert and oriented. Patient willing to participate in assessment and is able to answer all questions appropriately. Care providers, pharmacy, and demographics verified. Patient wishes to discharge home, denies need for home health at this time. Patient states she has no further needs or concerns at this time. CM to follow for discharge planning needs that may arise. PCP: aLtricia Specialists: Karen, urologist; Garrick, corporate executive chef Preferred Pharmacy: [facility] Insurance: [facility], Prevacus Prescription Benefit: yes Living Will/HPOA: yes, [place] LNOK: , daughter Living Arrangements: Patient lives with in a triplex with 10 steps and railing. Patient is independent at home and able to ambulate stairs. Transportation: self, DME/HHC: Patient has BSC, walker, and cpap at home. No previous HHC or SNF. Disposition Plan: Patient to discharge home with family support and follow-up plans in place. Aisha SUMMERS, RN, CM
[2021-10-12] MEDS: Docusate Sodium 100 MG Capsule PO ×2 (10:08→21:20)
[2021-10-12] MEDS: hydroCHLOROthiazide 25 MG Tablet PO (10:08)
[2021-10-12] MEDS: Enoxaparin 40 MG/0.4 ML Syringe SC (10:09)
[2021-10-12] MEDS: Lisinopril 20 MG Tablet PO (10:09)
[2021-10-12] MEDS: Pantoprazole Sodium 20 MG Tablet PO ×2 (10:09→21:20)
[2021-10-12 11:40] LABS: Bedside Glucose 131 mg/dL (74-106)
--- NOTE | 2021-10-12 15:49 | PCM.PN.SRG ---
Subjective Subjective She notes a pain level of 3. All she is currently taking his acetaminophen. She does need assistance with getting up out of bed and going to the bathroom. Objective Data Objective Data Vital Signs: Vital Signs Temp Pulse Resp BP Pulse Ox O2 Del Method O2 Flow Rate 98.7 F 68 16 130/72 H 98 Room Air 4 10/12/21 10:10 10/12/21 10:10 10/12/21 10:10 10/12/21 10:10 10/12/21 10:10 10/12/21 10:10 10/11/21 13:45 Oxygen Flow Rate (L/min) 4 Oxygen Delivery Method Room Air Weight: 213 lb 13.574 oz Body Mass Index (BMI) 39.1 Intake & Output: Intake and Output for Last 24 Hours 10/10/21 10/11/21 10/12/21 23:59 23:59 23:59 Intake Total 1612.67 / 1612.67 560 / 560 Output Total 735 / 1035 2500 / 2500 Balance 877.67 / 577.67 -1940 / -1940 Lab / Micro Data Result Diagrams: 10/12/21 06:05 10/12/21 06:05 Labs: Laboratory Results - last 24 hr 10/12/21 06:05: WBC 19.8 H, RBC 3.94 L, Hgb 10.5 L, Hct 31.9 L, MCV 81.0, MCH 26.6 L, MCHC 32.9, RDW Std Deviation 43.4, RDW Coeff of Heri 15.1 H, Plt Count 534 H, MPV 8.7 10/12/21 06:05: Sodium 137, Potassium 4.2, Chloride 105, Carbon Dioxide 28.0, Anion Gap 4 L, BUN 13, Creatinine 1.31 H, Estim Creat Clear Calc 33.41, Est GFR (MDRD) Af Amer 52 L, Est GFR (MDRD) Non-Af 43 L, BUN/Creatinine Ratio 9.9 L, Glucose 126 H, Calcium 8.9 10/12/21 11:17: POC Glucose 131 H Physical Exam GI GI Narrative: Abdomen is overweight, soft, no focal tenderness, incisions are clean and dry Assessment & Plan Assessment/Plan (1) Mass of hepatic flexure of colon: PLAN: Plan Excellent progress. Patient's been tolerating clear liquids. Her burping and belching is ceased as she is now started to have flatus and liquid stool. Pain seems to be adequately controlled. She does still need assistance with steadiness and getting out of bed and out of chair. She has been advanced to a treatment transitional diet. We will hold her IV fluid. If her progress continues at this rate we should be able to discharge tomorrow. I am anticipating that her mild leukocytosis is recently stress reaction. We will recheck laboratory tomorrow Alex Vazquez M.D., F.A.C.S.
[2021-10-13 03:00] VITALS: BP 140/68; PULSE 71; RESP 14; TEMP 36.8; O2SAT 98
--- NOTE | 2021-10-13 06:22 | PCM.PN.SRG ---
Subjective Subjective She is making excellent progress. She is passing flatus and somewhat explosive stools. Abdominal pain continues to be improved. There is no nausea or vomiting. She has been able to get up and ambulate. Breathing is comfortable Objective Data Objective Data Vital Signs: Vital Signs Temp Pulse Resp BP Pulse Ox O2 Del Method O2 Flow Rate 98.2 F 71 14 140/68 H 98 Room Air 4 10/13/21 03:00 10/13/21 03:00 10/13/21 03:00 10/13/21 03:00 10/13/21 03:00 10/13/21 03:00 10/11/21 13:45 Oxygen Flow Rate (L/min) 4 Oxygen Delivery Method Room Air Weight: 213 lb 13.574 oz Body Mass Index (BMI) 39.1 Intake & Output: Intake and Output for Last 24 Hours 10/11/21 10/12/21 10/13/21 23:59 23:59 23:59 Intake Total 1612.67 / 1612.67 2210 / 2510 700 / 700 Output Total 735 / 1035 3700 / 3700 Balance 877.67 / 577.67 -1490 / -1190 700 / 700 Lab / Micro Data Result Diagrams: 10/12/21 06:05 10/12/21 06:05 Labs: Laboratory Results - last 24 hr 10/12/21 06:05: Sodium 137, Potassium 4.2, Chloride 105, Carbon Dioxide 28.0, Anion Gap 4 L, BUN 13, Creatinine 1.31 H, Estim Creat Clear Calc 33.41, Est GFR (MDRD) Af Amer 52 L, Est GFR (MDRD) Non-Af 43 L, BUN/Creatinine Ratio 9.9 L, Glucose 126 H, Calcium 8.9 10/12/21 11:17: POC Glucose 131 H Physical Exam Resp normal respiratory effort GI GI Narrative: Soft, nontender, laparoscopic sites clean and dry Auscultation: normoactive bowel sounds Assessment & Plan Assessment/Plan (1) Mass of hepatic flexure of colon: (2) Cholecystitis with cholelithiasis: PLAN: Plan Patient has had a very smooth postoperative course. I anticipate discharge. Labs are pending. She has had an opportunity to ask and have questions answered. Pathology pending. Alex Vazquez M.D., F.A.C.S.
[2021-10-13 06:30] LABS: Absolute Lymphocyte Count 1.97 X10^3/uL (0.83-4.51); Absolute Neutrophil Count 9.3 X10^3/uL (2.0-7.7); Basophil# 0.04 X10^3/uL; Basophil% 0.3 % (0-1); Eosinophil# 0.77 X10^3/uL; Eosinophils% 5.9 % (0-5); Hemoglobin 10.4 g/dL (12.0-15.0); Lymphocyte # 1.97 X10^3/ul (0.83-4.51); Lymphocyte % 15.2 % (19-41); Mean Corp Hgb Conc 31.5 g/dL (32-36); Mean Corpuscular Hgb 25.5 pg (27.0-32.0); Mean Corpuscular Volume 80.9 fL (81-99); Mean Platelet Vol. 9.4 fl (6.2-12.0); Monocyte# 0.89 X10^3/uL; Monocyte% 6.9 % (0-10); NRBC Flagged by Analyzer 0 % (0-5); Neutrophil # 9.26 X10^3/uL (2.7-7.7); Neutrophil % 71.3 % (47-70); Platelet Count 424 K/mm3 (150-450); RBC Distribution Width CV 14.9 % (11.6-14.6); Red Blood Count 4.08 M/mm3 (4.2-5.4)
--- NOTE | 2021-10-13 07:26 | PCM.DC.SUM ---
Providers Date of Admission: 10/11/21 Primary Care Physician: Dr. Nellie Rome MD Reason For Visit: RT COLECTOMY, LAP MOOK Diagnosis Discharge Diagnosis (1) Mass of hepatic flexure of colon: Status: Acute Code(s): K63.89 - Other specified diseases of intestine (2) Cholecystitis with cholelithiasis: Status: Acute Code(s): K80.10 - Calculus of gallbladder with chronic cholecystitis without obstruction Medications at Discharge Home Medications omega-3 fatty acids 1,000 mg capsule (Fish Oil Concentrate) 2,000 mg PO QDAY SUPPLEMENT 06/26/17 acetaminophen 325 mg tablet (Tylenol) 650 mg PO Q4H PRN Pain 02/02/21 cholecalciferol (vitamin D3) 125 mcg (5,000 unit) tablet (Vitamin D3) 125 mcg PO DAILY SUPPLEMENT 02/02/21 lisinopril 20 mg-hydrochlorothiazide 25 mg tablet 1 tab PO DAILY BP 02/02/21 magnesium 250 mg tablet 400 mg PO DAILY SUPPLEMENT 07/04/21 omeprazole 40 mg capsule,delayed release 20 mg PO BID GERD 09/08/21 Hospital Course Operations - (Laparoscopic cholecystectomy. Laparoscopic right colectomy. Bilateral transverses abdominal plane block) Summary of Care Provided Minutes Spent on Discharge: 35 Hospital Course: Patient is a 66 y/o F who presented for an elective Laparoscopic cholecystectomy, Laparoscopic right colectomy, Bilateral transverses abdominal plane block by Dr. Vazquez on 10/11/21. Patient had an uneventful, uncomplicated hospitalization. Patient's hospitalization progressed very well. Upon discharge, she was passing flatus and had multiple bowel movements. Her abdominal pain was well controlled with Tylenol. She tolerated her current transitional diet. She was urinating well. She was ambulating well. She denies nausea, vomiting. She voiced readiness to be discharged to home. Home going instructions were provided. Weight / BMI Weight Weight: 213 lb 13.574 oz Body Mass Index (BMI) 39.1 ABG / Lab / Microbiology Data Result Diagrams: 10/13/21 05:13 10/12/21 06:05 Laboratory: Laboratory Results - last 24 hr 10/12/21 11:17: POC Glucose 131 H 10/13/21 05:13: WBC 13.0 H, RBC 4.08 L, Hgb 10.4 L, Hct 33.0 L, MCV 80.9 L, MCH 25.5 L, MCHC 31.5 L, RDW Std Deviation 43.0, RDW Coeff of Heri 14.9 H, Plt Count 424, MPV 9.4, Immature Gran % (Auto) 0.400, Neut % (Auto) 71.3 H, Lymph % (Auto) 15.2 L, [place] % (Auto) 6.9, Eos % (Auto) 5.9 H, Baso % (Auto) 0.3, Absolute Neuts (auto) 9.3 H, Absolute Lymphs (auto) 1.97, Nucleated RBC % 0 D/C Instructions Discharge Diet: Light diet - advance as tolerated Weight Bearing Status: Full weight bearing Call your doctor if your incision/area has: Continuous Slow Oozing, Increased Pain/ Swelling and Foul Smelling Discharge Call your doctor if you observe: Fever of 101 or Higher Please Follow Up With: Alex Vazquez MD When: Call [phone] for office appointment in approximately 10 days Meaningful Use Info Meaningful Use Diagnoses (Choose all that apply): None applicable Discharge Plan Admission Admit Date/Time: 10/11/21 05:31 Primary Reason for Your Visit: Colonic mass with intermittent intussusception. Chronic cholecystitis chol Attending Provider: Alex Vazquez Primary Care Provider: Nellie Rome Instructions Additional Instructions / Restrictions: Recommend taking Tylenol 650 mg every 4 hours as needed for pain or discomfort for 3 additional days from discharge. If no pain or discomfort, you do not have to take any Tylenol. You may continue to use a heating pad for comfort. Continue to follow the transitional diet until we see you back in the office for follow-up. Discharge Orders/Prescriptions Prescriptions: Continued omega-3 fatty acids [Fish Oil Concentrate] 1,000 mg capsule 2,000 mg PO QDAY magnesium 250 mg tablet 400 mg PO DAILY lisinopril-hydrochlorothiazide 20-25 mg Tablet 1 tab PO DAILY cholecalciferol (vitamin D3) [Vitamin D3] 125 mcg (5,000 unit) Tablet 125 mcg PO DAILY acetaminophen [Tylenol] 325 mg Tablet 650 mg PO Q4H PRN (Reason: Pain) omeprazole 40 mg Capsule,Delayed Release(Dr/Ec) 20 mg PO BID Discontinued metronidazole 500 mg tablet 500 mg PO DIRECTED Rx Instructions: Take 2 tabs at 1:00, 3:00, and 11:00 on the day before surgery neomycin 500 mg tablet 500 mg PO DIRECTED Rx Instructions: Take 2 tabs at 1:00, 3:00, and 11:00 on the day before surgery Referrals / Follow Up: Nellie Rome MD [Primary Care Provider] - Alex Vazquez MD [Med Staff - Active Staff] - (Please call the office to schedule an appointment. Follow-up at 10 days from surgery) Disposition Disposition (needs filled in before D/C Order can be placed): Home, Self Care Charges/Coding Visit Charges Inpatient E&M: 79857 Disch Hosp (No charge; post-op)
[2021-10-13 08:06] VITALS: O2SAT 95
[2021-10-13 09:25] VITALS: BP 121/58; PULSE 72; RESP 16; TEMP 36.9; O2SAT 97
[2021-10-13] MEDS: Acetaminophen 325 MG Tablet 650 MG PO (09:31)
[2021-10-13] MEDS: Docusate Sodium 100 MG Capsule PO (09:31)
[2021-10-13] MEDS: Enoxaparin 40 MG/0.4 ML Syringe SC (09:31)
[2021-10-13] MEDS: Pantoprazole Sodium 20 MG Tablet PO (09:31)
[2021-10-13 10:53] VITALS: BP 125/56
== END 2021-10-13 11:45 | disposition home or self-care (01) | DRG 330 ==
LOC: ACINP 08:56 → MS3 10-12 11:28
PROVIDERS: Anesthesiology; Admitting Provider Surgery; PCP Family Medicine; Referring Provider Surgery; Visit Provider Surgery
PROC: 0DTF4ZZ Resection of Right Large Intestine, Percutaneous Endoscopic Approach (ICD-10-PCS; CPT 44205; principal; 2021-10-11 07:10)
PROC: 0DTF4ZZ Resection of Right Large Intestine, Percutaneous Endoscopic Approach (ICD-10-PCS; CPT 47610; 2021-10-11 07:10)
DX: K56.1 Intussusception (principal); K80.10 Calculus of gallbladder with chronic cholecystitis without obstruction; F41.9 Anxiety disorder, unspecified; G47.30 Sleep apnea, unspecified; I10 Essential (primary) hypertension; K21.9 Gastro-esophageal reflux disease without esophagitis; M79.7 Fibromyalgia; K57.30 Diverticulosis of large intestine without perforation or abscess without bleeding; K63.89 Other specified diseases of intestine; Z87.19 Personal history of other diseases of the digestive system; Z85.528 Personal history of other malignant neoplasm of kidney; Z90.5 Acquired absence of kidney
CPT/HCPCS: 36415; 80048; 80053; 82378; 82962; 83735; 84443; 85025; 85027; 85610; 85730; 86850; 86900; 86901; 86920; 88304; 88305; 88307; 88331; 94762; 99251; J7040; J7120; P9016; G0463; J2405; J3475; J3490

== ENCOUNTER → 2021-12-01 | Outpatient (CLI) | payer MEDICARE, OTHER, SELFPAY ==
[2021-12-01 13:38] LABS: Absolute Lymphocyte Count 1.87 X10^3/uL (0.83-4.51); Basophil# 0.04 X10^3/uL; Basophil% 0.5 % (0-1); Eosinophils% 2.3 % (0-5); Hematocrit 35.7 % (37-47); Hemoglobin 10.9 g/dL (12.0-15.0); Lymphocyte # 1.87 X10^3/ul (0.83-4.51); Lymphocyte % 21.6 % (19-41); Mean Corp Hgb Conc 30.5 g/dL (32-36); Mean Corpuscular Volume 78.5 fL (81-99); Mean Platelet Vol. 9.5 fl (6.2-12.0); Monocyte# 0.53 X10^3/uL; Monocyte% 6.1 % (0-10); NRBC Flagged by Analyzer 0 % (0-5); Neutrophil # 5.99 X10^3/uL (2.7-7.7); Neutrophil % 69.3 % (47-70); Platelet Count 450 K/mm3 (150-450); RBC Distribution Width CV 15.8 % (11.6-14.6); RBC Distribution Width SD 44.9 fl (35.1-43.9); Red Blood Count 4.55 M/mm3 (4.2-5.4); White Blood Count 8.7 K/mm3 (4.4-11.0)
[2021-12-01 14:05] LABS: Vitamin D,25 Hydroxy 43.8 ng/mL
[2021-12-01 14:15] LABS: Ferritin 7 ng/mL (8-252); Iron 36 ug/dL (50-170); Iron Binding Capacity,Total 426 ug/dL (250-450)
== END | disposition home or self-care (01) ==
LOC: LAB 12:38
PROVIDERS: PCP Family Medicine; Visit Provider Family Medicine
DX: K92.2 Gastrointestinal hemorrhage, unspecified (principal); E55.9 Vitamin D deficiency, unspecified
CPT/HCPCS: 36415; 82306; 82728; 83540; 83550; 85025

== ENCOUNTER → 2022-01-05 | Outpatient (CLI) | payer MEDICARE, OTHER, SELFPAY | END | disposition home or self-care (01) | LOC: SL 22:23 | PROVIDERS: PCP Family Medicine; Referring Provider Nurse Practitioner Acute Care; Visit Provider Nurse Practitioner Acute Care | DX: G47.33 Obstructive sleep apnea (adult) (pediatric) (principal) | CPT/HCPCS: 95811 ==

== ENCOUNTER → 2022-03-17 | Outpatient (CLI) | payer MEDICARE, OTHER, SELFPAY ==
[2022-03-17 12:16] LABS: Absolute Lymphocyte Count 1.96 X10^3/uL (0.83-4.51); Absolute Neutrophil Count 4.4 X10^3/uL (2.0-7.7); Basophil# 0.05 X10^3/uL; Basophil% 0.7 % (0-1); Eosinophil# 0.25 X10^3/uL; Eosinophils% 3.4 % (0-5); Hematocrit 39.6 % (37-47); Hemoglobin 13.4 g/dL (12.0-15.0); Lymphocyte # 1.96 X10^3/ul (0.83-4.51); Lymphocyte % 26.8 % (19-41); Mean Corp Hgb Conc 33.8 g/dL (32-36); Mean Corpuscular Hgb 27.7 pg (27.0-32.0); Monocyte# 0.61 X10^3/uL; Monocyte% 8.3 % (0-10); NRBC Flagged by Analyzer 0 % (0-5); Neutrophil # 4.43 X10^3/uL (2.7-7.7); Neutrophil % 60.5 % (47-70); Platelet Count 374 K/mm3 (150-450); RBC Distribution Width CV 16.6 % (11.6-14.6); RBC Distribution Width SD 49.3 fl (35.1-43.9); Red Blood Count 4.83 M/mm3 (4.2-5.4); White Blood Count 7.3 K/mm3 (4.4-11.0)
[2022-03-17 12:33] LABS: Ferritin 18 ng/mL (8-252); Iron 76 ug/dL (50-170); Iron Binding Capacity,Total 397 ug/dL (250-450); PERCENT IRON SATURATION 19.1 % (15.0-55.0)
== END | disposition home or self-care (01) ==
LOC: BFHLAB 10:16
PROVIDERS: PCP Family Medicine; Visit Provider Family Medicine
DX: K92.2 Gastrointestinal hemorrhage, unspecified (principal)
CPT/HCPCS: 36415; 82728; 83540; 83550; 85025

== ENCOUNTER → 2022-03-24 | Outpatient (CLI) | payer MEDICARE, OTHER, SELFPAY ==
--- NOTE | 2022-03-24 12:43 | BI_ITS ---
MAMMOGRAPHY - BILATERAL SCREENING REASON FOR EXAM: Female, 66 years old. Routine annual screening examination. PERTINENT HISTORY: Non-contributory. Remote right excisional breast biopsy and prior ultrasound-guided breast biopsies. TECHNIQUE: Digital bilateral breast uri (3D mammographic acquisition) in the CC and MLO projections. 2-D mediolateral oblique (MLO) and craniocaudad (CC) views of both breasts were obtained. CAD: Full Field Digital Mammography with Computer Added Detection was performed. COMPARISON: Comparison is made with prior examination of 01/13/2021 and 11/27/2019. FINDINGS: Breast Composition: The breasts are heterogeneously dense, which may obscure small masses. There are no dominant masses or suspicious calcifications. Stable 4.4 mm well-defined nodule in the superior lateral retroareolar region of the right breast. Stable fat-containing bilateral axillary lymph nodes. No other significant abnormalities are identified. There has been no significant change since the prior study. BI/SCRN MAMM (CAD)W/URI BILAT IMPRESSION: Stable bilateral screening mammogram. Yearly follow-up mammogram recommended. (A) ASSESSMENT CATEGORY: BIRADS Category 2: Benign. A letter regarding these results will be sent to the patient by the facility within 30 days. Approximately 10% of breast cancers are not detected by mammography. A normal mammogram should not delay biopsy of a clinically suspicious abnormality. [id number] Electronically Signed: Mt Perdomo MD at 13:41 EST ,
== END | disposition home or self-care (01) ==
LOC: OPBI 12:42
PROVIDERS: PCP Family Medicine; Visit Provider Family Medicine
DX: Z12.31 Encounter for screening mammogram for malignant neoplasm of breast (principal); Z92.89 Personal history of other medical treatment; N63.41 Unspecified lump in right breast, subareolar
CPT/HCPCS: 77063; 77067

== ENCOUNTER → 2022-04-04 | Outpatient (CLI) | payer MEDICARE, OTHER, SELFPAY ==
--- NOTE | 2022-04-04 14:51 | CT_ITS ---
EXAM: CT CHEST, ABDOMEN AND PELVIS WITH INTRAVENOUS CONTRAST CLINICAL INDICATION: KIDNEY NEOPLASM TECHNIQUE: Helically acquired images were obtained of the chest, abdomen and pelvis with intravenous contrast. This CT exam was performed using one or more of the following dose reduction techniques: automated exposure control, adjustment of the mA and/or kV according to patient size, and/or use of iterative reconstruction technique. This report was created using [employer] report generation technology. RADIATION DOSE: CTDIvol = 22.62 mGy, DLP = 2052.30 mGy-cmContrast: IV 100mL Isovue-300 COMPARISON: September 08, 2021. Described large nodule in the left thyroid gland with substernal extension, right nephrectomy, cholelithiasis, 5 cm mid transverse colon lipoma and wall thickening possibly due to intussusception or malignant soft tissue mass, endoscopy was recommended. FINDINGS: CHEST: LUNGS AND PLEURAL SPACES: Unremarkable. No mass. No consolidation or edema. No pleural effusion or thickening. No pneumothorax. HEART: Mild calcification of proximal coronary arteries. Heart size is normal. No pericardial effusion. MEDIASTINUM: Unremarkable. No mediastinal or hilar adenopathy. Esophagus is unremarkable. No hiatal hernia. THYROID: Similar appearance of large left thyroid nodule and small right thyroid lobe, left thyroid nodule of 4 cm x 2.9 cm by at least 4.8 cm craniocaudal. It was 3.7 cm x 3.1 cm by at least 0.5 cm, difference in measurements probably due to technique. ABDOMEN: LIVER: Hepatomegaly, the right lobe is 18 cm in length, similar. GALLBLADDER AND BILE DUCTS: Cholecystectomy, new from prior exam. No intra- or extrahepatic biliary ductal dilation. PANCREAS: Unremarkable. No focal cystic or solid mass. SPLEEN: Unremarkable. Normal size without focal cystic or solid mass. ADRENALS: Slightly nodular contour of the adrenals, similar. KIDNEYS AND URETERS: Right nephrectomy again noted. No evidence of mass or fluid collection in the nephrectomy bed. STOMACH AND BOWEL: Right hemicolectomy, new from prior exam, the previously seen intraluminal presumably pedunculated fat-density mass with soft tissue intraluminal stalk is no longer apparent. Mild gas and stool in the transverse and descending and sigmoid colon. Moderate diverticulosis of the distal transverse colon to mid sigmoid colon, no evidence of acute diverticulitis. No evidence of small bowel obstruction. PELVIS: APPENDIX: Not present. Right hemicolectomy. BLADDER: Unremarkable. REPRODUCTIVE: Unremarkable as visualized. No mass. CHEST, ABDOMEN and PELVIS: INTRAPERITONEAL SPACE: Unremarkable. No ascites or other fluid collection. No free air. BONES/JOINTS: Moderate degenerative changes at L3-S1 with marked disc space narrowing, vacuum disc, mild spondylosis. Stable. No suspicious lytic or blastic abnormality. SOFT TISSUES: Wide neck umbilical hernia-dehiscence is similar. VASCULATURE: Incidentally noted left vertebral artery origin from the arch, a common variant. LYMPH NODES: Unremarkable. No enlarged lymph nodes. CT/CT Chest, Abd, Pel w/Contrast IMPRESSION: 1. No evidence of residual or recurrent renal or intracolonic mass. No acute findings. 2. Right hemicolectomy and cholecystectomy since prior exam. 3. Similar degenerative spine changes. 4. Stable large complex cyst or solid nodule involving the left thyroid. Repeat thyroid biopsy was recommended June 21, 2017. 5. Moderate diverticulosis, no evidence of acute diverticulitis. 6. A few small retroperitoneal lymph nodes appear similar. Electronically Signed: Irene Townsend MD at 6:28 EST ,
[2022-04-04 15:30] LABS: EGFR FINGERSTICK > 60.0000 mL/min (>60)
== END | disposition home or self-care (01) ==
LOC: CT 14:50
PROVIDERS: PCP Family Medicine; Referring Provider Urology; Visit Provider Urology
DX: Z01.812 Encounter for preprocedural laboratory examination (principal); C64.1 Malignant neoplasm of right kidney, except renal pelvis; I25.10 Atherosclerotic heart disease of native coronary artery without angina pectoris; Z90.5 Acquired absence of kidney; K57.90 Diverticulosis of intestine, part unspecified, without perforation or abscess without bleeding; R16.0 Hepatomegaly, not elsewhere classified; M48.07 Spinal stenosis, lumbosacral region; E04.1 Nontoxic single thyroid nodule
CPT/HCPCS: 71260; 74177; Q9967

== ENCOUNTER 2022-05-04 12:30 | Outpatient (RCR) | payer MEDICARE, OTHER, SELFPAY ==
--- NOTE | 2022-03-23 13:49 | HP.PTEVAL_ITS ---
Patient's Visit Information ROMAN RODRIGUEZ is a 66 year old F referred to Physical Therapy by Dr. Nellie Rome MD with a diagnosis of R knee OA. Date of Evaluation: 03/23/22 Physical Therapist: Gustavo Curiel, DPT, OCS, CSCS - Visit Plan Frequency: 2x /Week Duration: 4-6 Weeks Plan: 2x/week for 4-6 weeks for. 1. rollout and stretch B quads, ITB, HS,(pt doing quad stretch at home and should progress others to HEP. 2. NWB to WB strength for B hips and knees without increasing knee pain, to HEP. 3. MH and ROM to knees as needed. consider pool if pain worsens - Subjective R knee OA. Painful for 1.5 yrs on and off sometimes worse than others. Being on it alot is worse. Walking at grocery store hurts. has stairs at home and they can be a problem some days. Sleep is interrupted only sometimes if she overdoes it. Not employed, retired. Lives with [place] in two story house, dresses self, Basic ADLs get done but slowly and painful and inefficient. Hobbies: Gardening, but not in winter. Sewing, puzzles and they are geeting done. Gardening was an issue last year. No falls. No regular exercises. Like to walk but cannot - Pain R knee pain Pain Intensity (Out of 10): 0 Pain Intensity Range: 0, 3 - Objective R knee 0-118, pain at end, L knee 0-120. Walks with just slight discomfort R LE but I with good balance. Trasnfers I bed and chair. Steps reciprocal with one rail but obvious weakness and loss eccentric control at hips and knees. Max tightness in B quads and mod in HS. ITB. Hip AROM WFL except extension which is limited to 3 degrees B. Ankle AROM WFL but tightness apparent in gastroc. reflexes 2/3 B patella and achilles. Sensation : WNL to gross light touch. - ant draweer and post sag. Pain with bounce home slightly. Weakness in hip abd and ext 4-, flexion 3+ B, knee extension 3+ R and 4 L, HSC 4- R and 4 L. ankles strength 4+/5 B. - Balance/Special Test Scores Functional Gait Assessment Score: 27 % Disability: 10.0000 Lower Extremity Functional Score: 42 - Goals Goal 1:: AROM symmetrtical without pain B knees flexion Goal Time Frame: 4-6 Weeks Goal 2:: I appropriate management of condtion of HEP for OA, include CV ex. Goal Time Frame: 4-6 Weeks Goal 3:: Pain 1/10 at worst and 75% improved. Goal Time Frame: 4-6 Weeks Goal 4:: LEFS 50 Goal Time Frame: 4-6 Weeks - Rehabilitation Potential Physical Therapy Diagnosis: R knee OA Rehabilitation Potential: Good - Anticipated Interventions Patient/Client Instruction: Educate patient on: Condition, Plan of Care For the Purpose of:: To decrease pain, To increase ROM, To improve muscle performance and motor function Therapeutic Exercise to Include: Strength training, Flexibilty training, Passive ROM, Active ROM For the Purpose of:: To decrease pain, To increase ROM, To improve muscle performance and motor function, To increase tolerance to activ ity/condition/position Thank you for the opportunity to evaluate your patient. For Medicare and Medicare HMO plans, please review the plan of care and approve it. It will need to be FAXED BACK to us at [phone] for Medicare purposes. For Medicare only, by signing this I certify the plan of care. Please let me know if there are questions or concerns regarding this plan of care. Physician Signature: Date:
--- NOTE | 2022-05-04 13:21 | HP.PTDCSUM ---
It has been my pleasure to treat ROMAN RODRIGUEZ referred by Dr. Nellie Rome MD, with the diagnosis of R knee OA for a total of 9 visit(s). Discharge Date: 05/04/22 Please see the following information for a summary of their discharge status. Subjective: Knee hurts occasionally but much better. Hurts up to 3/10 with certain activities like if she is on it alot. HEP going well daily. No activities need modified right now. Nothing scheduled with doctor. Specialist would be next option. R knee pain Pain Intensity (Out of 10): 0 LB Pain Intensity (Out of 10): 0 % Improvement: 60 Objective/Function: 130 R knee flexion adn 132 KL knee, just slight pain R. Walking well without antalgia today. Improved. Goal 1:: AROM symmetrtical without pain B knees flexion Goal Progress: Goal Met Goal 2:: I appropriate management of condtion of HEP for OA, include CV ex. Goal Progress: Goal Met Goal 3:: Pain 1/10 at worst and 75% improved. Goal Progress: Progressing Goal 4:: LEFS 50 Goal Progress: Not Progressing Plan: d/c, pt request. Discharge Comments: Pt doing HEP and will contact doctor if knee becomes a problem again. If there are questions or concerns regarding this patient's physical therapy, please feel free to call me at [phone]. Thank you for the referral of this patient. Sincerely, Gustavo Curiel, DPT, OCS, CSCS Balance/Gait/Functional tests - Balance/Special Test Scores Functional Gait Assessment Score: 27 % Disability: 10.0000 Lower Extremity Functional Score: 42
== END 2022-05-04 14:04 | disposition home or self-care (01) ==
LOC: PT 12:30
PROVIDERS: PCP Family Medicine; Referring Provider Family Medicine; Visit Provider Family Medicine
DX: M17.11 Unilateral primary osteoarthritis, right knee (principal)
CPT/HCPCS: 97110; 97140; 97161; 97164

== ENCOUNTER → 2022-10-30 | Outpatient (CLI) | payer MEDICARE, OTHER, SELFPAY ==
--- NOTE | 2022-10-30 13:53 | CT_ITS ---
STUDY: CT ABDOMEN AND PELVIS WITHOUT CONTRAST REASON FOR EXAM: Female, 67 years old. MALIGNANT NEOPLASM OF KIDNEY RADIATION DOSAGE (If Supplied By Facility): CTDIvol = ( 22.13 ) mGy, DLP = ( 1022.80 ) mGycm TECHNIQUE: Transaxial images were obtained from the dome of the diaphragm to the symphysis pubis without oral contrast, and without intravenous contrast. Sagittal and coronal images were reconstructed. Individualized dose optimization techniques were used for this CT. COMPARISON: CT chest abdomen and pelvis April 04, 2022 FINDINGS: Again noted is a fatty left-sided diaphragmatic hernia. The lung bases are clear. The visualized portions of the heart are within normal limits. Normal liver. Normal gallbladder and extrahepatic biliary system. Normal spleen. Normal pancreas. There is a mildly thickened appearance of the left adrenal gland similar to prior study. The right kidney is absent. There is postoperative change in the right nephrectomy bed with migration of the liver towards the midline Normal left kidney. Normal small intestine. There is postoperative change in the right upper quadrant within the proximal aspect of the colon. There are minimal air-fluid levels within the colon. There is visualized diverticulosis without visualized diverticulitis. There is non-visualization of the appendix. The aorta is partially calcified. Normal inferior vena cava. There are a few nonspecific stable right-sided retroperitoneal lymph nodes at the level of the hiatus measuring up to 1.4 x 1.4 cm and 1.6 cm. There are small shotty appearing retroperitoneal lymph nodes to the level of bifurcation. Normal urinary bladder. Normal visualized uterus. There is a low-lying fatty hernia with diastases of the rectus muscle with atrophy. This hernia measures 4.4 x 5 cm. There is also a opening in the abdominal wall superiorly at several levels measuring 3.3 cm and 2.5 cm with small herniations of right midline abdominal wall fat. This is stable since the prior study. There is multilevel degenerative change within the thoracolumbar spine. There is disc space narrowing spondylosis. At L2-L3 there is a broad disc protrusion facet arthropathy severe neural foramina narrowing severe central stenosis. There is moderate neural foraminal narrowing moderate central stenosis at the level L3-L4 and L4-L5 and L5-S1. There is degenerative change of the SI joints. CT/Abdomen/Pelvis without Cont IMPRESSION: Noncontrasted study Status post right nephrectomy postoperative change. Postoperative change in the proximal colon at the level of the hepatic flexure partial colectomy. Diverticulosis no diverticulitis. Stable possible very reactive retroperitoneal lymph nodes for which a follow-up is warranted given the clinical history provided. Stable multifocal abdominal wall fatty hernias. Advanced degenerative change of the thoracolumbar spine especially at the level of L2-L3. Electronically Signed: Juana Yates MD at 23:43 EDT ,
== END | disposition home or self-care (01) ==
LOC: CT 13:52
PROVIDERS: PCP Family Medicine; Referring Provider Urology; Visit Provider Urology
DX: C64.1 Malignant neoplasm of right kidney, except renal pelvis (principal)
CPT/HCPCS: 74176

== ENCOUNTER → 2023-02-14 | Outpatient (CLI) | payer MEDICARE, OTHER, SELFPAY ==
--- NOTE | 2023-02-14 09:07 | RAD_ITS ---
STUDY: X-RAY - PELVIS AND RIGHT HIP REASON FOR EXAM: Female, 67 years old. PAIN WITH INTERNAL ROTATION TECHNIQUE: 3 views of the pelvis and hip. COMPARISON: None. FINDINGS: There is a non-specific bowel gas pattern. Normal visualized soft tissue structures. Normal bilateral iliac wings, sacroiliac joints and visualized sacrum. Normal bilateral superior and inferior pubic rami. Normal pubic symphysis. Normal bilateral ischial tuberosities. Normal visualized femoral head. There is cortical sclerosis with sub-cortical cyst formation of the acetabulum. There is mild articular joint space narrowing of the hip. RAD/HIP, UNI W/ Pelvis 2-3 Views IMPRESSION: Mild arthrosis. Electronically Signed: Michel Lares MD at 18:53 EST ,
[2023-02-14 09:47] LABS: Absolute Lymphocyte Count 2.18 X10^3/uL (0.83-4.51); Absolute Neutrophil Count 4.9 X10^3/uL (2.0-7.7); Basophil# 0.05 X10^3/uL; Basophil% 0.6 % (0-1); Eosinophil# 0.21 X10^3/uL; Eosinophils% 2.6 % (0-5); Hematocrit 39.9 % (37-47); Hemoglobin 12.8 g/dL (12.0-15.0); Lymphocyte # 2.18 X10^3/ul (0.83-4.51); Lymphocyte % 27.3 % (19-41); Mean Corp Hgb Conc 32.1 g/dL (32-36); Mean Corpuscular Hgb 27.2 pg (27.0-32.0); Mean Corpuscular Volume 84.9 fL (81-99); Mean Platelet Vol. 9.7 fl (6.2-12.0); Monocyte# 0.59 X10^3/uL; Monocyte% 7.4 % (0-10); NRBC Flagged by Analyzer 0 % (0-5); Neutrophil # 4.93 X10^3/uL (2.7-7.7); Neutrophil % 61.7 % (47-70); Platelet Count 379 K/mm3 (150-450); RBC Distribution Width CV 14.3 % (11.6-14.6); RBC Distribution Width SD 44.2 fl (35.1-43.9)
[2023-02-14 10:17] LABS: ALB/GLOB Ratio 0.9 RATIO (0.9-2.4); AST(SGOT) 14 U/L (15-37); Alanine Aminotransfer ALT/SGPT 19 U/L (13-56); Albumin, Serum 3.5 g/dL (3.2-5.0); Alkaline Phosphatase 73 U/L (45-117); Anion Gap 6 (5-15); BUN 16 mg/dL (7-18); BUN/Creat Ratio 15.4 RATIO (10-20); Calcium,Total 8.9 mg/dL (8.5-10.1); Chloride 104 mmol/L (98-107); Cholesterol 204 mg/dL (200); Creatinine, Serum 1.04 mg/dL (0.55-1.02); EST Glomerular Filtration Rate 56 mL/min (>60); Est Glom Filt Rate - Afr Amer 68 mL/min (>60); Globulin 3.9 g/dL (2.2-4.2); Glucose 101 mg/dL (74-106); High Density Lipoprotein 55 mg/dL; Potassium 3.8 mmol/L (3.5-5.1); Protein, Total 7.4 g/dL (6.4-8.2); Sodium Level 140 mmol/L (136-145); Triglycerides 288 mg/dL; Very Low Density Lipoprotein 58 mg/dL (5-40)
[2023-02-14 12:17] LABS: Hemoglobin A1c 5.8 % (3.8-5.6)
== END | disposition home or self-care (01) ==
LOC: LAB 08:55
PROVIDERS: PCP Family Medicine; Referring Provider Family Medicine; Visit Provider Family Medicine
DX: Z00.00 Encounter for general adult medical examination without abnormal findings (principal); I10 Essential (primary) hypertension; Z83.3 Family history of diabetes mellitus; M16.10 Unilateral primary osteoarthritis, unspecified hip
CPT/HCPCS: 36415; 73502; 80053; 80061; 83036; 85025

== ENCOUNTER → 2023-05-18 | Outpatient (CLI) | payer MEDICARE, OTHER, SELFPAY ==
--- NOTE | 2023-05-18 15:22 | CT_ITS ---
INDICATION: MALIGNANT NEOPLASM OF RIGHT KIDNEY EXAMINATION: CT ABDOMEN AND PELVIS WITH CONTRAST - CT Abdomen And Pelvis W/ Contrast Injection TECHNIQUE: Helically acquired images were obtained of the abdomen and pelvis following IV contrast. A radiation dose optimization technique was used for this scan. IV Contrast dosage and agent: 75 mL Isovue-300 Oral contrast: None. COMPARISON: September 08, 2021, October 30, 2022. FINDINGS: LOWER CHEST: Lung bases are clear. No cardiomegaly or pericardial effusion. LIVER: Homogeneous hepatomegaly. No focal mass. GALLBLADDER AND BILIARY TREE: Cholecystectomy. No intra- or extrahepatic biliary ductal dilation. PANCREAS: No focal cystic or solid mass. No gross ductal ectasia SPLEEN: Normal size without focal cystic or solid mass. ADRENAL GLANDS: Chronic mild diffuse left adrenal thickening compatible with hyperplasia. Unremarkable right adrenal gland.. KIDNEYS AND URETERS: Surgically absent right kidney. No new or enlarging mass in the nephrectomy surgical bed. Normal left are hydronephrosis or perinephric inflammation. PERITONEUM: No ascites or free air. No other fluid collection. BOWEL: No acute gastric finding. No small bowel distention or focal wall thickening. Prior right partial hemicolectomy without evidence of stricture or obstruction. No focal colonic wall thickening or surrounding inflammation. Diffuse colonic diverticulosis without evidence of diverticulitis. LYMPH NODES: Unchanged periaortic and pericaval lymph nodes, subcentimeter in short axis. No gross enlarging lymph node or suspicious change in morphology. VESSELS: Aortic atherosclerosis without ectasia or dissection.. URINARY BLADDER: Unremarkable. REPRODUCTIVE ORGANS: Unremarkable uterus and adnexa. ABDOMINAL WALL: Fat-containing umbilical hernia without inflammation. Small midline supraumbilical fat-containing hernias are again noted without associated inflammatory change. BONES: Diffuse spondylosis with severe spinal canal stenosis at L2-3 secondary to degenerative disc changes and bilateral facet arthropathy with associated anterolisthesis.. Similar L4-5 spondylosis with moderate to severe spinal canal stenosis. CT/Abdomen/Pelvis W IV Cont ONLY IMPRESSION: Prior right nephrectomy and right partial hemicolectomy without evidence of metastatic disease. Scattered retroperitoneal lymph nodes without suspicious change from prior exam. Hepatomegaly. Colonic diverticulosis without evidence of diverticulitis. Diffuse spondylosis with severe spinal canal stenosis at L2-3 and moderate to severe spinal canal stenosis at L4-5. Electronically Signed: Emanuel Snyder MD at 9:50 EST ,
[2023-05-18 15:38] LABS: Hematocrit 38.1 % (37-47); Hemoglobin 12.7 g/dL (12.0-15.0); Mean Corp Hgb Conc 33.3 g/dL (32-36); Mean Corpuscular Hgb 27.9 pg (27.0-32.0); Mean Corpuscular Volume 83.7 fL (81-99); Mean Platelet Vol. 9.2 fl (6.2-12.0); Platelet Count 367 K/mm3 (150-450); RBC Distribution Width CV 13.6 % (11.6-14.6); RBC Distribution Width SD 41.6 fl (35.1-43.9); Red Blood Count 4.55 M/mm3 (4.2-5.4); White Blood Count 8.8 K/mm3 (4.4-11.0)
[2023-05-18 16:05] LABS: AST(SGOT) 16 U/L (15-37); Alanine Aminotransfer ALT/SGPT 25 U/L (13-56); Albumin, Serum 3.6 g/dL (3.2-5.0); Alkaline Phosphatase 84 U/L (45-117); Anion Gap 6 (5-15); BUN 15 mg/dL (7-18); BUN/Creat Ratio 12.1 RATIO (10-20); Chloride 107 mmol/L (98-107); Creatinine, Serum 1.24 mg/dL (0.55-1.02); EST Glomerular Filtration Rate 46 mL/min (>60); Est Glom Filt Rate - Afr Amer 55 mL/min (>60); Globulin 3.7 g/dL (2.2-4.2); Glucose 114 mg/dL (74-106); Potassium 3.9 mmol/L (3.5-5.1); Protein, Total 7.3 g/dL (6.4-8.2); Sodium Level 141 mmol/L (136-145)
[2023-05-18 16:47] LABS: CREATININE FINGERSTICK 1.4 mg/dL (0.55-1.02)
== END | disposition home or self-care (01) ==
LOC: CT 15:13
PROVIDERS: PCP Family Medicine; Referring Provider Urology; Visit Provider Urology
DX: C64.1 Malignant neoplasm of right kidney, except renal pelvis (principal)
CPT/HCPCS: 36415; 74177; 80053; 85027; Q9967

== ENCOUNTER → 2023-06-01 | Outpatient (CLI) | payer MEDICARE, OTHER, SELFPAY | END | disposition home or self-care (01) | LOC: SL 12:12 | PROVIDERS: PCP Family Medicine; Referring Provider Internal Medicine Critical Care Medicine; Visit Provider Internal Medicine Critical Care Medicine | DX: G47.33 Obstructive sleep apnea (adult) (pediatric) (principal) | CPT/HCPCS: 94762 ==

== ENCOUNTER → 2023-06-05 | Outpatient (CLI) | payer MEDICARE, OTHER, SELFPAY ==
--- NOTE | 2023-06-05 12:33 | BI_ITS ---
MAMMOGRAPHY - BILATERAL SCREENING REASON FOR EXAM: Female, 67 years old. Routine annual screening examination. PERTINENT HISTORY: Non-contributory. Remote right excisional breast biopsy. TECHNIQUE: Digital bilateral breast uri (3D mammographic acquisition) in the CC and MLO projections. 2-D mediolateral oblique (MLO) and craniocaudad (CC) views of both breasts were obtained. CAD: Full Field Digital Mammography with Computer Added Detection was performed. COMPARISON: Comparison is made with prior study dated March 24, 2022 and January 13, 2021. FINDINGS: Breast Composition: The breasts are heterogeneously dense, which may obscure small masses. There are no dominant masses or suspicious calcifications. Stable 4.4 mm well-defined nodule in the superior lateral retroareolar region of the right breast. Stable bilateral fat containing axillary lymph nodes. No other significant abnormalities are identified. There has been no significant change since the prior study. BI/SCRN MAMM (CAD)W/URI BILAT IMPRESSION: Stable bilateral screening mammogram. Yearly follow-up mammogram recommended. (A) ASSESSMENT CATEGORY: BIRADS Category 2: Benign. A letter regarding these results will be sent to the patient by the facility within 30 days. Approximately 10% of breast cancers are not detected by mammography. A normal mammogram should not delay biopsy of a clinically suspicious abnormality. [id number] Electronically Signed: Mt Perdomo MD at 14:59 EDT ,
== END | disposition home or self-care (01) ==
LOC: OPBI 12:31
PROVIDERS: PCP Family Medicine; Referring Provider Family Medicine; Visit Provider Family Medicine
DX: Z12.31 Encounter for screening mammogram for malignant neoplasm of breast (principal)
CPT/HCPCS: 77063; 77067

== ENCOUNTER → 2023-06-29 | Outpatient (CLI) | payer MEDICARE, OTHER, SELFPAY | END | disposition home or self-care (01) | LOC: SL 12:13 | PROVIDERS: PCP Family Medicine; Referring Provider Nurse Practitioner Acute Care; Visit Provider Nurse Practitioner Acute Care | DX: R09.02 Hypoxemia (principal) ==

== ENCOUNTER → 2023-11-13 | Outpatient (CLI) | payer MEDICARE, OTHER, SELFPAY ==
--- NOTE | 2023-11-13 10:38 | RAD_ITS ---
STUDY: X-RAY CHEST REASON FOR EXAM: Female, 68 years old. Malignant neoplasm of right kidney, except renal pelvis. TECHNIQUE: Frontal and lateral views of the chest. COMPARISON: February 07, 2021 FINDINGS: Stable mild hyperinflation with scattered healed parenchymal granulomatous calcifications. There is no demonstrated pleural abnormality. Cardiomegaly unchanged. Normal mediastinum and vijay. Normal visualized pulmonary arteries. Aortic tortuosity with calcification unchanged. Diffuse moderate thoracic spondylosis unchanged. Normal visualized ribs, clavicles, and shoulders. No abnormality of the visualized soft tissue structures of the upper abdomen. RAD/Chest PA and Lateral IMPRESSION: Stable chest with no acute or active cardiopulmonary disease. Electronically Signed: Tez Yanez MD at 11:29 EDT ,
[2023-11-13 11:05] LABS: Hematocrit 39.4 % (37-47); Hemoglobin 12.7 g/dL (12.0-15.0); Mean Corp Hgb Conc 32.2 g/dL (32-36); Mean Corpuscular Hgb 27.1 pg (27.0-32.0); Mean Corpuscular Volume 84.2 fL (81-99); Mean Platelet Vol. 9.2 fl (6.2-12.0); Platelet Count 354 K/mm3 (150-450); RBC Distribution Width CV 14.2 % (11.6-14.6); RBC Distribution Width SD 43.1 fl (35.1-43.9); Red Blood Count 4.68 M/mm3 (4.2-5.4)
[2023-11-13 11:39] LABS: Anion Gap 4 (5-15); BUN 16 mg/dL (7-18); BUN/Creat Ratio 14.5 RATIO (10-20); Calcium,Total 9.6 mg/dL (8.5-10.1); Chloride 107 mmol/L (98-107); EST Glomerular Filtration Rate 52 mL/min (>60); Est Glom Filt Rate - Afr Amer 63 mL/min (>60); Glucose 104 mg/dL (74-106); Potassium 4.1 mmol/L (3.5-5.1); Sodium Level 141 mmol/L (136-145)
== END | disposition home or self-care (01) ==
PROVIDERS: PCP Family Medicine; Referring Provider Urology; Visit Provider Urology
DX: C64.1 Malignant neoplasm of right kidney, except renal pelvis (principal)
CPT/HCPCS: 36415; 71046; 80048; 85027

== ENCOUNTER → 2024-02-19 | Outpatient (CLI) | payer MEDICARE, OTHER, SELFPAY ==
[2024-02-19 15:48] LABS: Vitamin D,25 Hydroxy 27.9 ng/mL
[2024-02-19 15:51] LABS: ALB/GLOB Ratio 0.9 RATIO (0.9-2.4); AST(SGOT) 22 U/L (15-37); Alanine Aminotransfer ALT/SGPT 31 U/L (13-56); Albumin, Serum 3.3 g/dL (3.2-5.0); Alkaline Phosphatase 63 U/L (45-117); Anion Gap 4 (5-15); BUN 23 mg/dL (7-18); BUN/Creat Ratio 17.8 RATIO (10-20); Calcium,Total 9.4 mg/dL (8.5-10.1); Chloride 108 mmol/L (98-107); Creatinine, Serum 1.29 mg/dL (0.55-1.02); EST Glomerular Filtration Rate 44 mL/min (>60); Est Glom Filt Rate - Afr Amer 53 mL/min (>60); Globulin 3.7 g/dL (2.2-4.2); Glucose 121 mg/dL (74-106); Potassium 3.7 mmol/L (3.5-5.1); Sodium Level 141 mmol/L (136-145); Thyroid Stim Hormone (TSH) 0.631 uIU/mL (0.358-3.740)
[2024-02-19 17:23] LABS: Hemoglobin A1c 5.7 % (3.8-5.6)
== END | disposition home or self-care (01) ==
LOC: BFHLAB 13:16
PROVIDERS: PCP Family Medicine; Referring Provider Family Medicine; Visit Provider Family Medicine
DX: Z00.00 Encounter for general adult medical examination without abnormal findings (principal); N18.31 Chronic kidney disease, stage 3a; I12.9 Hypertensive chronic kidney disease with stage 1 through stage 4 chronic kidney disease, or unspecified chronic kidney disease; F32.A Depression, unspecified; K21.9 Gastro-esophageal reflux disease without esophagitis; Z83.3 Family history of diabetes mellitus; R73.03 Prediabetes
CPT/HCPCS: 36415; 80053; 82306; 83036; 84443

== ENCOUNTER → 2024-03-07 | Outpatient (CLI) | payer MEDICARE, OTHER, SELFPAY ==
[2024-03-07 13:55] LABS: Cholesterol 202 mg/dL (200); High Density Lipoprotein 64 mg/dL; Triglycerides 165 mg/dL; Very Low Density Lipoprotein 33 mg/dL (5-40)
== END | disposition home or self-care (01) ==
LOC: LAB 12:14
PROVIDERS: PCP Family Medicine; Referring Provider Family Medicine; Visit Provider Family Medicine
DX: Z00.00 Encounter for general adult medical examination without abnormal findings (principal); I10 Essential (primary) hypertension; F32.A Depression, unspecified; K21.9 Gastro-esophageal reflux disease without esophagitis; Z83.3 Family history of diabetes mellitus
CPT/HCPCS: 36415; 80061

== ENCOUNTER → 2024-06-23 | Outpatient (CLI) | payer MEDICARE, OTHER, SELFPAY ==
--- NOTE | 2024-06-23 11:47 | CT_ITS ---
PROCEDURE: ABDOMEN/PELVIS WITH CONTRAST 06/23/2024 REASON FOR EXAM: MALIGNANT NEOPLASM OF R KIDNEY History of prior right nephrectomy. TECHNIQUE: Abdomen and pelvis CT with intravenous contrast. Coronal and Sagittal reconstruction series were provided. PATIENT PREPARATION: Per protocol ORAL CONTRAST TYPE: None. CONTRAST: Isovue-300 VOLUME: 93 mL One or more dose reduction techniques were used (e.g., Automated exposure control, adjustment of the mA and/or kV according to patient size, use of iterative reconstruction technique. RADIATION DOSE SUMMARY: CTDlvol: 15 mGy DLP: 1131.29 mGycm COMPARISON: Comparison is made with prior study dated May 18, 2023. FINDINGS: Lung bases: Unremarkable. No coronary artery calcification is seen. Liver: Diffuse fatty infiltration. Gallbladder: Surgically absent. Spleen: Pancreas: Normal size without evidence of mass surrounding inflammation or ductal dilation. Adrenals: Unremarkable. Kidneys: The patient is status post right nephrectomy. Bladder: Unremarkable. Reproductive Organs: Unremarkable. Bowel: Colonic diverticulosis without diverticulitis. Appendix: The appendix is not identified. There is no inflammatory process identified in the right lower quadrant to suggest appendicitis. Lymph nodes: Small benign-appearing retroperitoneal lymph nodes. These are unchanged. Vasculature: Mild diffuse atherosclerotic calcifications are noted. Peritoneum / Retroperitoneum: There is evidence of a central anterior lower anterior abdominal wall ventral hernia containing fat. Bones: Degenerative changes of the spine. Straightening of the normal lumbar lordosis. CT/Abdomen/Pelvis WITH Contrast IMPRESSION: Stable examination. No acute abnormality is seen. Reading Location: [place] [id number]
[2024-06-23 12:37] LABS: CREATININE FINGERSTICK 1.1 mg/dL (0.55-1.02)
== END | disposition home or self-care (01) ==
LOC: CT 11:46
PROVIDERS: PCP Family Medicine; Referring Provider Urology; Visit Provider Urology
DX: C64.1 Malignant neoplasm of right kidney, except renal pelvis (principal)
CPT/HCPCS: 74177; Q9967

== ENCOUNTER → 2024-08-25 | Outpatient (CLI) | payer MEDICARE, OTHER, SELFPAY ==
--- NOTE | 2024-08-25 08:45 | BI_ITS ---
EXAM: SCRN MAMM (CAD)W/URI BILAT DATE: 08/25/2024 CLINICAL HISTORY: F, Age 69 y/o , SCREENING New palpable lump in the right breast with retraction of the nipple. Remote history of right excisional breast biopsy. BREAST CANCER RISK ASSESSMENT: Not assessed. TECHNIQUE: Bilateral screening digital breast tomosynthesis with 2D and 3D images. Computer aided detection. COMPARISON: Prior exam(s) dated June 05, 2023.. FINDINGS: TISSUE DENSITY: The breast tissue is heterogeneously dense, which may obscure small masses. Bilateral Breast Mammographic Findings: Since prior study, there is a new 1.6 cm 1.9 cm spiculated nodule in the retroareolar region of the right breast at the mid level with retraction of the right areolar complex. Correlation with ultrasound recommended. BI/SCRN MAMM (CAD)W/URI BILAT IMPRESSION: OVERALL FINAL ASSESSMENT: BIRADS 0 Incomplete: Need additional imaging evaluati on and/or prior mammograms for comparison. RECOMMENDATION: Sonographic follow-up. A letter with findings and recommendations will be mailed to the patient. Reading Location: [place] [id number]
--- OUTSIDE RECORDS SUMMARY | 2024-08-25 11:47 | XMS RPT_ITS | CCD ---
Author Organization [facility] CliniSynm Care Team Providers Care Refined Syrup Operator Name Role Phone Dr. Nellie Rome Primary Care Provider [phone] Dr. Nellie Rome Referring Provider [phone] Kaci MIXER OPERATORVINI Attending Provider George, Dr. Alex Barker Attending Provider [phone] C[place]aylin, Dr. Alex Barker Referring Provider George, Dr. Alex Barker Other Provider Dr. Pan Jimenez Attending Provider CebuDr. Alex wright Referring Provider Cekaylin, Dr. Alex Barker Admit Provider Dr. Nellie Rome Primary Care Provider Dr. Nellie Rome Referring Provider [phone] ITALIA Perez Attending Provider Dr. Nellie Rome Primary Care Provider Dr. Nellie Rome Referring Provider [phone] Alex Vazquez Attending Provider George, Dr. Alex Barker Referring Provider Cekaylin, Dr. Alex Barker Other Provider Dr. Nellie Rome Primary Care Provider Dr. Nellie Rome Referring Provider [phone] Giancarlo Zuluaga Attending Provider Dr. Nellie Rome Primary Care Provider Dr. Nellie Rome Referring Provider Dr. Giancarlo Zuluaga Attending Provider Latricia UMAÑA, Dr. Ballard Primary Care Provider Latricia UMAÑA, Dr. Ballard Attending Provider [phone] Latricia UMAÑA, Dr. Ballard Referring Provider Kaci MIXER OPERATOR-C, Rani Attending Provider Karen UMAÑA, Dr. Oswaldo Elise Attending Provider Karen UMAÑA, Dr. Oswaldo Elise Referring Provider Miedel, Nellie Attending Unavailable Miedel, Nellie Referring Unavailable Miedel, Nellie Primary Care Unavailable Oswaldo Jones Attending Unavailable KarenOswaldo Referring Unavailable Miedel, Nellie Primary Care Unavailable Rani Clemons NP Attending Unavailable Miedel, Nellie Referring Unavailable Miedel, Nellie Primary Care Unavailable Miedel, Nellie Primary Care Unavailable Miedel, Nellie Attending Unavailable Miedel, Nellie Referring Unavailable Miedel, Nellie Attending Unavailable Miedel, Nellie Referring Unavailable Miedel, Nellie Primary Care Unavailable KarenOswaldo Attending Unavailable Miedel, Nellie Primary Care Unavailable Miedel, Nellie Primary Care Unavailable KarenOswaldo Attending Unavailable KarenOswaldo Referring Unavailable Allergies Allergy Classification Reported Allergen(s) Allergy Type Date of Onset Reaction(s) Facility (17 sources) acetaZOLAMIDE Drug Allergy 07-04-2021 DEPRESSION [facility] (17 sources) DULoxetine Drug Allergy 07-04-2021 DEPRESSION [facility] (17 sources) Tetracycline Drug Allergy 07-04-2021 [facility] (1 source) acetaZOLAMIDE Drug Allergy 05-28-2024 [facility] (1 source) DULoxetine Drug Allergy 05-28-2024 [facility] (1 source) Tetracycline Drug Allergy 05-28-2024 [facility] Medications Current Medications Medication Drug Class(es) Dates Sig (Normalized) Sig (Original) acetaminophen 325 mg oral tablet (17 sources) Start: 02-02-2021 take 2 tablets by mouth every four hours as needed for pain Acetaminophen (Tylenol) 325 mg Tablet Active 650 mg PO Q4H as needed for Pain February 02, 2021 1:00am hydroCHLOROthiazide 25 mg / lisinopril 20 mg oral tablet (18 sources) Thiazide Diuretic, Angiotensin Converting Enzyme Inhibitor Start: 05-28-2024 Lisinopril-Hydroch lorothiazide 20-25 mg tablet Active 1 {tbl} PO daily May 28, 2024 12:00am Start: 02-02-2021 End: 05-23-2023 Lisinopril-Hydrochlorothiazi de 20-25 mg Tablet Discontinued 1 {tbl} PO DAILY February 02, 2021 1:00am May 23, 2023 10:39am Start: 02-02-2021 End: 05-23-2023 take 1 tablet by mouth once daily Lisinopril-Hydrochlorothiazide Discontin ued 1 TABLET PO DAILY February 02, 2021 1:00am May 23, 2023 10:39am magnesium citrate 125 mg oral capsule (4 sources) Start: 05-23-2023 take 2 capsules by mouth once daily Magnesium Citrate 125 mg capsule Active 250 mg PO DAILY May 23, 2023 12:00am Start: 05-23-2023 take 250 mg by mouth once paolo y Magnesium Citrate Active 250 MG PO DAILY May 23, 2023 12:00am [place]-3 Fatty Acids (Fish Oi l Concentrate) 1,000 mg capsule (17 sources) Start: 06-26-2017 [place]-3 Fatty Acids (Fish Oil Concentrate) 1,000 mg capsule Active 2000 mg PO daily June 26, 2017 12:00am Start: 06-26-2017 [place]-3 Fatty Acids (Fish Oil Concentrate) 1,000 mg capsule Active 2000 MG PO daily June 25, 2017 11:00pm Start: 06-26-2017 [place]-3 Fatty Acids (Fish Oil Concentrate) 1,000 mg capsule Active 2000 MG PO daily June 26, 2017 12:00am Completed/Discontinued Medications Medication Drug Class(es) Dates Sig (Normalized) Sig (Original) acetaminophen 325 mg / oxyCODONE hydrochloride 5 mg oral tablet (17 sources) Opioid Agonist Start: 02-09-2021 End: 07-04-2021 Oxycodone-Acetamino phen 5-325 mg tablet Discontinued 1 {tbl} PO Q4H as needed for pain 28 09February 09, 2021 July 04, 2021 11:15am Start: 02-09-2021 End: 07-04-2021 take 1 tablet by mouth every four hours Oxycodone-Acetaminophen Discontinued 1 TABLET PO Q4H 28 09February 09, 2021 July 04, 2021 11:15am cholecalciferol 0.125 mg oral tablet (17 sources) Vitamin D Start: 02-02-2021 End: 05-23-2023 take 1 tablet by mouth once daily Cholecalciferol (Vitamin D3) (Vitamin D3) 125 mcg (5,000 unit) Tablet Discontinued 125 ug PO DAILY February 02, 2021 1:00am May 23, 2023 10:39am docusate sodium 100 mg oral capsule (17 sources) Start: 02-09-2021 End: 07-04-2021 take 1 capsule by mouth twice daily Docusate Sodium (Colace) 100 mg capsule Discontinued 100 mg PO TWICE A DAY February 09, 2021 1:00am July 04, 2021 11:15am ferrous sulfate 325 mg oral tablet (11 sources) Start: 02-23-2022 End: 05-23-2023 take 1 tablet by mouth every other day Ferrous Sulfate 325 mg (65 mg iron) tablet Discontinued 325 mg PO every other day February 23, 2022 1:00am May 23, 2023 10:39am Citlalli Santana (17 sources) Start: 02-02-2021 End: 07-04-2021 Citlalli Santana Discontinued 1 NMA SL/PO DAILY February 02, 2021 1:00am July 04, 2021 11:15am Start: 02-02-2021 End: 07-04-2021 take 1 capsule by mouth once daily Citlalli Santana Discontinued 1 CAP SL/PO DAILY February 02, 2021 12:00am July 04, 2021 10:15am Start: 02-02-2021 End: 07-04-2021 take 1 capsule by mouth once daily Citlalli Santana Discontinued 1 CAP SL/PO DAILY February 02, 2021 1:00am July 04, 2021 11:15am Magnesium (17 sources) Start: 07-04-2021 End: 02-23-2022 Magnesium 250 mg tablet Disc ontinued 400 mg PO DAILY July 04, 2021 12:00am February 23, 2022 12:14pm Start: 07-04-2021 End: 02-23-2022 take 400 mg by mouth once daily Magnesium Discontinued 400 MG PO DAILY July 04, 2021 12:00am February 23, 2022 12:14pm Start: 07-04-2021 End: 02-23-2022 take 400 mg by mouth once daily Magnesium Discontinued 400 MG PO DAILY July 03, 2021 11:00pm February 23, 2022 11:14am Start: 07-04-2021 take 400 mg by mouth once daily Magnesium Active 400 MG PO DAILY July 04, 2021 12:00am Start: 07-04-2021 take 250 mg by mouth once daily Magnesium Active 250 MG PO DAILY July 04, 2021 12:00am metroNIDAZOLE 500 mg oral tablet (20 sources) Nitroimidazole Antimicrobial Start: 09-22-2021 End: 10-13-2021 take 2 tablets by mouth once daily Metronidazole 500 mg tablet Discontinued 500 mg PO As Directed October 04, 2021 10:59am October 13, 2021 7:19am Take 2 tabs at 1:00, 3:00, and 11:00 on the day before surgery neomycin sulfate 500 mg oral tablet (20 sources) Aminoglycoside Antibacterial Start: 09-22-2021 End: 10-13-2021 take 2 tablets by mouth once daily Neomycin 500 mg tablet Discontinued 500 mg PO As Directed October 04, 2021 10:59am October 13, 2021 7:19am Take 2 tabs at 1:00, 3:00, and 11:00 on the day before surgery omeprazole 40 mg delayed release oral capsule (16 sources) Proton Pump Inhibitor Start: 09-08-2021 End: 02-23-2022 Omeprazole 40 mg Capsule,Delayed Release(Dr/Ec) Discontinued 20 mg PO TWICE A DAY September 08, 2021 12:00am February 23, 2022 12:14pm Start: 09-08-2021 End: 02-23-2022 take 20 mg by mouth twice daily Omeprazole Discontinued 20 MG PO TWICE A DAY September 08, 2021 12:00am February 23, 2022 12:14pm Start: 09-08-2021 take 40 mg by mouth once daily Omeprazole Active 40 MG PO DAILY September 08, 2021 12:00am Problems Active Problems Problem Classification Problem Date Documented Da te Episodic/Chronic Abdominal pain (20 sources) Epigastric pain; Translations: [Epigastric pain] Episodic Biliary tract disease (20 sources) Biliary calculus; Translations: [Calculus of gallbladder with chronic cholecystitis without obstruction] Episodic Cancer of kidney and renal pelvis (2 sources) Malignant neoplasm of right kidney, except renal pelvis; Translations: [Malignant neoplasm of right kidney, except renal pelvis] Onset: 05-13-2024 Chronic Diverticulosis and diverticulitis (17 sources) Diverticulitis of intestine; Translations: [Diverticulitis of intestine, part unspecified, without perforation or abscess without bleeding] 01-06-2021 Chronic Gastrointestinal hemorrhage (20 sources) Hematochezia; Translations: [Melena] Episodic Genitourinary symptoms and ill-defined conditions (20 sources) H/O: kidney disease; Translations: [Personal history of other diseases of urinary system] Episodic Comment on above: KIDNEY MASS Nonspecific chest pain (16 sources) Chest pain; Translations: [Chest pain, unspecified] 09-07-2021 Episodic Other and unspecified benign neoplasm (2 sources) Benign neoplasm of colon; Translations: [Benign lipomatous neoplasm of intra-abdominal organs] Episodic Other and unspecified benign neoplasm (13 sources) Benign lipomatous neoplasm of intra-abdominal organs; Translations: [Lipoma of intra-abdominal organs] Episodic Other diseases of kidney and ureters (17 sources) Renal mass; Translations: [Other specified disorders of kidney and ureter] 01-06-2021 Chronic Other gastrointestinal disorders (16 sources) History of diverticulitis; Translations: [Personal history of other diseases of the digestive system] 09-07-2021 Episodic Other gastrointestinal disorders (8 sources) Personal history of other diseases of the digestive system; Translations: [Personal history of unspecified digestive disease] Episodic Other gastrointestinal disorders (8 sources) Mass of colon; Translations: [Other specified diseases of intestine] 10-21-2021 Episodic Other gastrointestinal disorders (12 sources) Other specified diseases of intestine; Translations: [Other specified disorders of intestine] Episodic Other nutritional; endocrine; and metabolic disorders (17 sources) Body mass index 30+ - obesity; Translations: [Body mass index (BMI) 39.0-39.9, adult] 07-04-2021 Chronic Other nutritional; endocrine; and metabolic disorders (4 sources) Body mass index (BMI) 39.0-39.9, adult; Translations: [Body Mass Index 39.0-39.9, adult] Chronic Other nutritional; endocrine; and metabolic disorders (12 sources) Obesity; Translations: [Obesity, unspecified] 02-23-2022 Chronic Other nutritional; endocrine; and metabolic disorders (7 sources) Obesity, unspecified; Translations: [Obesity, unspecified] 02-23-2022 Chronic Other nutritional; endocrine; and metabolic disorders (1 source) Morbid (severe) obesity due to excess calories; Translations: [Morbid (severe) obesity due to excess calories] Onset: 05-28-2024 Chronic Other nutritional; endocrine; and metabolic disorders (1 source) Body mass index (BMI) 40.0-44.9, adult; Translations: [Body mass index [BMI] 40.0-44.9, adult] Onset: 05-28-2024 Chronic Other screening for suspected conditions (not mental disorders or infectious disease) (1 source) Encounter for screening mammogram for malignant neoplasm of breast; Translations: [Encounter for screening mammogram for malignant neoplasm of breast] Onset: 08-16-2024 Episodic Residual codes; unclassified (17 sources) Sleep apnea; Translations: [Sleep apnea, unspecified] 07-04-2021 Chronic Residual codes; unclassified (4 sources) Sleep apnea, unspecified; Translations: [Unspecified sleep apnea] Chronic Residual codes; unclassified (12 sources) Obstructive sleep apnea syndrome; Translations: [Obstructive sleep apnea (adult) (pediatric)] 02-23-2022 Chronic Comment on above: CPAP 8 cmH2O Residual codes; unclassified (8 sources) Obstructive sleep apnea (adult) (pediatric); Translations: [Obstructive sleep apnea (adult)(pediatric)] Onset: 05-28-2024 02-23-2022 Chronic Thyroid disorders (17 sources) Thyroid nodule; Translations: [Nontoxic single thyroid nodule] 06-26-2017 Chronic Unclassified (1 source) Obesity, class 3; Translations: [Obesity, class 3] Onset: 05-28-2024 Past or Other Problems Problem Classification Problem Date Documented Da te Episodic/Chronic Unclassified (14 sources) history excision right breast lump 10-10-2021 Results Test Name Value Interpretation Reference Range Facility Abdomen/Pelvis WITH Contrast on 06-23-2024 Abdomen/Pelvis WITH Contrast [facility] [address] [place] [address] Abdomen/Pelvis WITH Contrast MR#: [id number] Acct: [id number] Name: ROMAN RODRIGUEZ Rep #: [id number] : 1955 F 69 From: [facility] MD PCP: Dr. Nellie Rome MD Status: REG CLI Study: Abdomen/Pelvis WITH Contrast Date of Exam: Exam# [id number] Ordering Dr: Oswaldo Jones MD PROCEDURE: ABDOMEN/PELVIS WITH CONTRAST 06/23/2024 REASON FOR EXAM: MALIGNANT NEOPLASM OF R KIDNEY History of prior right nephrectomy. TECHNIQUE: Abdomen and pelvis CT with intravenous contrast. Coronal and Sagittal reconstruction series were provided. PATIENT PREPARATION: Per protocol ORAL CONTRAST TYPE: None. CONTRAST: Isovue-300 VOLUME: 93 mL One or more dose reduction techniques were used (e.g., Automated exposure control, adjustment of the mA and/or kV according to patient size, use of iterative reconstruction technique. RADIATION DOSE SUMMARY: CTDlvol: 15 mGy DLP: 1131.29 mGycm COMPARISON: Comparison is made with prior study dated May 18, 2023. FINDINGS: Lung bases: Unremarkable. No coronary artery calcification is seen. Liver: Diffuse fatty infiltration. Gallbladder: Surgically absent. Spleen: Pancreas: Normal size without evidence of mass surrounding inflammation or ductal dilation. Adrenals: Unremarkable. Kidneys: The patient is status post right nephrectomy. Bladder: Unremarkable. Reproductive Organs: Unremarkable. Bowel: Colonic diverticulosis without diverticulitis. Appendix: The appendix is not identified. There is no inflammatory process identified in the right lower quadrant to suggest appendicitis. Lymph nodes: Small benign-appearing retroperitoneal lymph nodes. These are unchanged. Vasculature: Mild diffuse atherosclerotic calcifications are noted. Peritoneum / Retroperitoneum: There is evidence of a central anterior lower anterior abdominal wall ventral hernia containing fat. Bones: Degenerative changes of the spine. Straightening of the normal lumbar lordosis. CT/Abdomen/Pelvis WITH Contrast IMPRESSION: Stable examination. No acute abnormality is seen. Reading Location: [place] [address] CC: Dr. Nellie Rome MD; Dr. Oswaldo Jones MD Furniture And Bedding Inspector: Signed Normal [facility] CREATININE FINGERSTICKon Creatinine [Mass/Vol] 1.1 mg/dL High 0.55-1.02 [facility] Comment on above: Performed By: #### L 100.0500, L500.2500 #### [facility] [address] [place], [place], [id number] GFR/1.73 sq M.predicted among non-blacks MDRD (S/P/Bld) [Vol rate/Area] 55.0000 mL/min/{1.73_m2} Low >60 [facility] Comment on above: Performed By: #### L 100.0500, L500.2500 #### [facility] [address] [place], [place], [address] Creatinine measurement at dsideOrdered By: Oswaldo Jones on 06-23-2024 Creatinine [Mass/Vol] 1.1 mg/dL High 0.55-1.02 [facility] EGFROrdered By: Oswaldo Jones on 06-23-2024 GFR/1.73 sq M.predicted among non-blacks MDRD (S/P/Bld) [Vol rate/Area] 55.0000 mL/min/{1.73_m2} Low >60 [facility] Pulmonary Visit Reporton Pulmonary Visit Report [facility] [address] [place], [place] [address] OFFICE VISIT Date of Service: 05/28/24 MR#: [id number] Acct: [id number] Name: ROMAN RODRIGUEZ Rep #: [id number] : 1955 Provider: VINI Clemons Age/Sex: 68/F Location: [facility] Status: Signed Assessment and Plan Assessment and Plan (1) RADU (obstructive sleep apnea): Status: Chronic Comment: CPAP 8 cmH2O Plan: She is using and benefiting from Pap therapy. No indication for titration study at this time. Contact the office for any new or worsening symptoms in the meantime. Follow-up in 1 year (2) Obesity: Status: Chronic Qualifiers: Obesity type: due to excess calories Obesity classification: adult class 3 (BMI >= 40) Serious obesity comorbidity presence: with serious comorbidity Body mass index: BMI 40.0-44.9 Qualified Code(s): E66.813 - Obesity, class 3; E66.01 - Morbid (severe) obesity due to excess calories; Z68.41 - Body mass index [BMI] 40.0-44.9, adult Plan: Complicates exam, plan, care and prognosis. Continue to encourage weight loss. Plan Details Follow Up: 1 Year HPI 1 Y FU Chief Complaint: Sleep apnea HPI Comments Details: This patient presents to the office today for follow-up of her obstructive sleep apnea. She is ambulatory and currently on room air. She has not been seen in the ED or urgent care for any respiratory illnesses since her last office visit. She has not required any antibiotics or prednisone for any breathing problems. If you recall, she is a lifelong never smoker. She denies any difficulty with shortness of breath. She denies any cough, sputum production or hemoptysis. She has not had any wheezing, chest tightness, chest pain or palpitations. She also denies any fever, chills or body aches. She wakes up feeling rested and refreshed most mornings. She does experience some difficulty with dry mouth, which she states is not new. She is not having difficulty with nocturia. She is not having air leaks. She admits to occasional headaches which she says she has been dealing with for years. She is not requiring naps. Compliance report for the past 30 days shows 100% compliance with an average use of 7 hours and 11 minutes per night. Current setting is 8 cm of water with a residual AHI 1.4 events per hour. Leaks do not appear to be an issue. Intake Vital Signs 05/23/23 06:34 05/28/24 08:06 Height 5 ft 2 in 5 ft 2 in Weight: 219 lb BMI 40.0 BP 131/76 H Blood Pressure Location Lt brachial Position Sitting Respiration 20 H Pulse 70 Pulse Source Monitor Temp 97.4 F L Temperature Source Temporal Artery Pulse Oximetry (%) 97 Oxygen Delivery Method room air Intake Visit Reasons: 1 Y FU Chief Complaint: R Colectomy Lap Juanita 10/12, radu REVIEW COMPLIANCE REPORT Nurses Director Required: No DME Vendor: [employer] Accompanied by: Self Allergies acetazolamide (From Diamox Sequels) Adverse Reaction (Verified 05/28/24 10:56) DEPRESSION duloxetine (From Cymbalta) Adverse Reaction (Verified 05/28/24 10:56) DEPRESSION tetracycline Adverse Reaction (Verified 05/28/24 10:56) DEPRESSION Medications ???Medication ???Instructions ???Recorded ???Confirmed ???Type omega-3 fatty acids 1,000 mg 2,000 mg PO QDAY SUPPLEMENT 05/28/24 History capsule (Fish Oil Concentrate) acetaminophen 325 mg tablet 650 mg PO Q4H PRN Pain 02/02/21 History (Tylenol) magnesium citrate 125 mg capsule 250 mg PO DAILY 05/23/23 05/28/24 History lisinopril 20 1 tab PO QDAY 05/28/24 05/28/24 Hi story mg-hydrochlorothiazide 25 mg tablet Have you fallen in the past year?: No PFSH Medical History Mass Cancer Anemia Syncope Stool color black Stool bloody Gastric reflux Chest pain Abdominal pain Diverticulitis Wears glasses Anxiety Thyroid disease Arthritis History of renal disease Back pain History of diverticulitis Non-smoker CPAP (continuous positive airway pressure) dependence Shortness of breath on exertion History of pain when walking Nodular thyroid disease Hemorrhoids Sleep apnea Hypertension Surgical History History of cholecystectomy History of colectomy History of esophagogastroduodenoscopy (EGD) History of nephrectomy, right Hx of colonoscopy S/P thyroid biopsy history excision right breast lump Family History Mother Colon cancer Hypertension Father Diabetes Social History household members: spouse housing: house Smoking Status: Never smoker alcohol intake: nev (more content not included)... Normal [facility] High density lipoprotein (HD L) measurementOrdered By: Nellie Rome on 03-07-2024 Cholesterol in HDL [Mass/Vol] 64 mg/dL >40 [facility] Comment on above: The drugs N-Acetylcy steine and Metamizole may falsely depress this assay. Reference Range HDL <40 mg/dL Low HDL Cholesterol HDL >or= 60 mg/dL High HDL Cholesterol Lipid Profileon 03-07-2024 Cholesterol [Mass/Vol] 202 mg/dL High 200 [facility] Comment on above: Result Comment: <200 mg/dL Desirable 200-240 mg/dL Borderline >240 mg/dL High Risk Performed By: #### L 500.4100 #### [facility] [address] [facility] [address] Cholesterol in HDL [Mass/Vol] 64 mg/dL Normal [facility] Comment on above: Result Comment: The drugs N-Acetylcysteine and Metamizole may falsely depress this assay. Reference Range HDL <40 mg/dL Low HDL Cholesterol HDL >or= 60 mg/dL High HDL Cholesterol Performed By: #### L 500.4100 #### [facility] [address] [place], [address] Cholesterol in LDL [Mass/Vol] 105 mg/dL Normal 0-130 [facility] Comment on above: Performed By: #### L 500.4100 #### [facility] [address] [facility] [address] Cholesterol in VLDL [Mass/Vol] 33 mg/dL Normal 5-40 [facility] Comment on above: Performed By: #### L 500.4100 #### [facility] [address] [facility] [address] Triglyceride [Mass/Vol] 165 mg/dL Normal [facility] Comment on above: Result Comment: The drugs N-Acetylcysteine and Metamizole may falsely depress this assay. Serum Triglycerides Reference Interval Normal <150 mg/dL Borderline high 150 - 199 mg/dL High 200 - 499 mg/dL Very High > or = 500 mg/dL Performed By: #### L 500.4100 #### [facility] [address] [place], [address] Low density lipoprotein (LDL ) cholesterol measurementOrdered By: Nellie Rome on 03-07-2024 Cholesterol in LDL [Mass/Vol] 105 mg/dL 0-130 [facility] Serum or plasma cholesterol measurement (mass/volume)Ordered By: Nellie Rome on 03-07-2024 Cholesterol [Mass/Vol] 202 mg/dL High <200 [facility] Comment on above: <200 mg/dL Desirable 200-240 mg/dL Borderline >240 mg/dL High Risk Triglycerides measurementOrd ered By: Nellie Rome on 03-07-2024 Triglyceride [Mass/Vol] 165 mg/dL <199 [facility] Comment on above: The drugs N-Acetylcy steine and Metamizole may falsely depress this assay.Serum Triglycerides Reference Interval Normal <150 mg/dL Borderline high 150 - 199 mg/dL High 200 - 499 mg/dL Very High > or = 500 mg/dL Very low density lipoprotein (VLDL) cholesterol measurementOrdered By: Nellie Rome on 03-07-2024 VLDL Cholesterol 33 mg/dL 5-40 [facility] Comprehensive Metabolic Prof ilon 02-19-2024 Albumin [Mass/Vol] 3.3 g/dL Normal 3.2-5.0 [facility] Comment on above: Order Comment: PT WI LL COME BACK FOR LIPID WAS NOT FASTING.RANGLE Performed By: #### L 501.9520, L501.9985, L506.1000, L500.4050 #### [facility] [address] [place], [address] Albumin/Globulin [Mass ratio] 0.9 {ratio} Normal 0.9-2.4 [facility] Comment on above: Order Comment: PT WI LL COME BACK FOR LIPID WAS NOT FASTING.RANGLE Performed By: #### L 501.9520, L501.9985, L506.1000, L500.4050 #### [facility] [address] [place], [address] ALK P 63 U/L Normal 45-117 [facility] Comment on above: Order Comment: PT WI LL COME BACK FOR LIPID WAS NOT FASTING.RANGLE Performed By: #### L 501.9520, L501.9985, L506.1000, L500.4050 #### [facility] [address] [place], [address] ALT [Catalytic activity/Vol] 31 U/L Normal 13-56 [facility] Comment on above: Order Comment: PT WI LL COME BACK FOR LIPID WAS NOT FASTING.RANGLE Performed By: #### L 501.9520, L501.9985, L506.1000, L500.4050 #### [facility] [address] [place], [address] AST [Catalytic activity/Vol] 22 U/L Normal 15-37 [facility] Comment on above: Order Comment: PT WI LL COME BACK FOR LIPID WAS NOT FASTING.RANGLE Performed By: #### L 501.9520, [id number], L506.1000, L500.4050 #### [facility] [address] [place], [address] Bilirubin [Mass/Vol] 0.50 mg/dL Normal 0.20-1.00 [facility] Comment on above: Order Comment: PT WI LL COME BACK FOR LIPID WAS NOT FASTING.RANGLE Result Comment: For patients on eltrombopag therapy, use of Dimension [place] TBIL is not recommended. Performed By: #### L 501.9520, L501.9985, L506.1000, L500.4050 #### [facility] [address] [place], [address] BUN/CRE 17.8 RATIO Normal 10-20 [facility] Comment on above: Order Comment: PT WI LL COME BACK FOR LIPID WAS NOT FASTING.RANGLE Performed By: #### L 501.9520, L501.9985, L506.1000, L500.4050 #### [facility] [address] [place], [address] CA,Total 9.4 mg/dL Normal 8.5-10.1 [facility] Comment on above: Order Comment: PT WI LL COME BACK FOR LIPID WAS NOT FASTING.RANGLE Performed By: #### L 501.9520, L501.9985, L506.1000, L500.4050 #### [facility] [address] [place], [address] Chloride [Moles/Vol] 108 mmol/L High 98-107 [facility] Comment on above: Order Comment: PT WI LL COME BACK FOR LIPID WAS NOT FASTING.RANGLE Performed By: #### L 501.9520, L501.9985, L506.1000, L500.4050 #### [facility] [address] [place], [address] CO2 [Moles/Vol] 29.0 mmol/L Normal 21.0-32.0 [facility] Comment on above: Order Comment: PT WI LL COME BACK FOR LIPID WAS NOT FASTING.RANGLE Performed By: #### L 501.9520, L501.9985, L506.1000, L500.4050 #### [facility] [address] [place], [address] Creatinine [Mass/Vol] 1.29 mg/dL High 0.55-1.02 [facility] Comment on above: Order Comment: PT WI LL COME BACK FOR LIPID WAS NOT FASTING.RANGLE Result Comment: The validity of the calculated GFR GFRAA in patients over 70 years has not been determined. Clinical correlation is essential. Performed By: #### L 501.9520, L501.9985, L506.1000, L500.4050 #### [facility] [address] [place], [address] EST GFR - AA 53 mL/min Low >60 [facility] Comment on above: Order Comment: PT WI LL COME BACK FOR LIPID WAS NOT FASTING.RANGLE Result Comment: Afri can Cymro GFR Calc Performed By: #### L 501.9520, L501.9985, L506.1000, L500.4050 #### [facility] [address] [place], [address] GAP 4 Low 5-15 [facility] Comment on above: Order Comment: PT WI LL COME BACK FOR LIPID WAS NOT FASTING.RANGLE Performed By: #### L [id number], L501.9985, L506.1000, L500.4050 #### [facility] [address] [place], [address] GFR/1.73 sq M.predicted among non-blacks MDRD (S/P/Bld) [Vol rate/Area] 44 mL/min/{1.73_m2} Low >60 [facility] Comment on above: Order Comment: PT WI LL COME BACK FOR LIPID WAS NOT FASTING.RANGLE Result Comment: Non- GFR Calc Performed By: #### L 501.9520, L501.9985, L506.1000, L500.4050 #### [facility] [address] [place], [address] Globulin (S) [Mass/Vol] 3.7 g/dL Normal 2.2-4.2 [facility] Comment on above: Order Comment: PT WI LL COME BACK FOR LIPID WAS NOT FASTING.RANGLE Performed By: #### L 501.9520, L501.9985, L506.1000, L500.4050 #### [facility] [address] [place], [address] Glucose [Mass/Vol] 121 mg/dL High 74-106 [facility] Comment on above: Order Comment: PT WI LL COME BACK FOR LIPID WAS NOT FASTING.RANGLE Result Comment: Fast ing Glucose result from 100 to 125 mg/dL suggests IMPAIRED HOMEOSTASIS per A.D.A. criteria. Performed By: #### L 501.9520, L501.9985, L506.1000, L500.4050 #### [facility] [address] [place], [address] Potassium [Moles/Vol] 3.7 mmol/L Normal 3.5-5.1 [facility] Comment on above: Order Comment: PT WI LL COME BACK FOR LIPID WAS NOT FASTING.RANGLE Performed By: #### L 501.9520, L501.9985, L506.1000, L500.4050 #### [facility] [address] [place], [address] Sodium [Moles/Vol] 141 mmol/L Normal 136-145 [facility] Comment on above: Order Comment: PT WI LL COME BACK FOR LIPID WAS NOT FASTING.RANGLE Performed By: #### L [id number], L501.9985, L506.1000, L500.4050 #### [facility] [address] [place], [address] T PROT 7.0 g/dL Normal 6.4-8.2 [facility] Comment on above: Order Comment: PT WI LL COME BACK FOR LIPID WAS NOT FASTING.RANGLE Performed By: #### L [id number], L501.9985, L506.1000, L500.4050 #### [facility] [address] [place], [address] Urea nitrogen [Mass/Vol] 23 mg/dL High 7-18 [facility] Comment on above: Order Comment: PT WI LL COME BACK FOR LIPID WAS NOT FASTING.RANGLE Performed By: #### L 501.9520, L501.9985, L506.1000, L500.4050 #### [facility] [address] [place], [address] Hemoglobin A1con 02-19-2024 HbA1c (Bld) [Mass fraction] 5.7 % High 3.8-5.6 [facility] Comment on above: Result Comment: Norm al < 5.7 % Prediabetic 5.7 - 6.4 % Diabetic >or= 6.5 % Please note range changes. Performed By: #### L 501.9520, L501.9985, L506.1000, L500.4050 #### [facility] [address] [place], [address] Thyroid Stim Hormone (TSH)on 02-19-2024 TSH 0.631 uIU/mL Normal 0.358-3.740 [facility] Comment on above: Order Comment: PT WI LL COME BACK FOR LIPID WAS NOT FASTING.RANGLE Performed By: #### L [id number], L501.9985, L506.1000, L500.4050 #### [facility] [address] [place], [address] Vitamin D,25 Hydroxyon 02-18 Vitamin D 25-OH 27.9 ng/mL Normal [facility] Comment on above: Result Comment: Nahed min D 25(OH) Status Range Deficiency <20 ng/mL (50nmol/L) Insufficiency 20 - 30 ng/mL (50 - 75 nmol/L) Sufficiency 30 - 100 ng/mL (75 - 250 nmol/L) Toxicity >100 ng/mL (>250 nmol/L) Performed By: #### L 501.9520, L501.9985, L506.1000, L500.4050 #### [facility] [address] [place], [address] Basic Metabolic Profile (BMP )on 11-13-2023 BUN/CRE 14.5 RATIO Normal 10-20 [facility] Comment on above: Performed By: #### L 100.0500, L500.2500 #### [facility] [address] [place], [address] CA,Total 9.6 mg/dL Normal 8.5-10.1 [facility] Comment on above: Performed By: #### L 100.0500, L500.2500 #### [facility] [address] [place], [address] Chloride [Moles/Vol] 107 mmol/L Normal 98-107 [facility] Comment on above: Performed By: #### L 100.0500, L500.2500 #### [facility] [address] [place], [address] CO2 [Moles/Vol] 30.0 mmol/L Normal 21.0-32.0 [facility] Comment on above: Performed By: #### L 100.0500, L500.2500 #### [facility] [address] [place], [address] Creatinine [Mass/Vol] 1.10 mg/dL High 0.55-1.02 [facility] Comment on above: Result Comment: The validity of the calculated GFR GFRAA in patients over 70 years has not been determined. Clinical correlation is essential. Performed By: #### L 100.0500, L500.2500 #### [facility] [address] [place], [address] EST GFR - AA 63 mL/min Normal >60 [facility] Comment on above: Result Comment: Afri can Cymro GFR Calc Performed By: #### L 100.0500, L500.2500 #### [facility] [address] [place], [address] GAP 4 Low 5-15 [facility] Comment on above: Performed By: #### L 100.0500, L500.2500 #### [facility] [address] [place], [address] GFR/1.73 sq M.predicted among non-blacks MDRD (S/P/Bld) [Vol rate/Area] 52 mL/min/{1.73_m2} Low >60 [facility] Comment on above: Result Comment: Non- GFR Calc Performed By: #### L 100.0500, L500.2500 #### [facility] [address] [place], [address] Glucose [Mass/Vol] 104 mg/dL Normal 74-106 [facility] Comment on above: Result Comment: Fast ing Glucose result from 100 to 125 mg/dL suggests IMPAIRED HOMEOSTASIS per A.D.A. criteria. Performed By: #### L 100.0500, L500.2500 #### [facility] [address] [place], [address] Potassium [Moles/Vol] 4.1 mmol/L Normal 3.5-5.1 [facility] Comment on above: Performed By: #### L 100.0500, L500.2500 #### [facility] [address] [place], [address] Sodium [Moles/Vol] 141 mmol/L Normal 136-145 [facility] Comment on above: Performed By: #### L 100.0500, L500.2500 #### [facility] [address] [place], [address] Urea nitrogen [Mass/Vol] 16 mg/dL Normal 7-18 [facility] Comment on above: Performed By: #### L 100.0500, L500.2500 #### [facility] [address] [place], [address] CBC-Complete Blood Cnt No Di ffon 11-13-2023 Erythrocyte distribution width (RBC) [Ratio] 14.2 % Normal 11.6-14.6 [facility] Comment on above: Performed By: #### L 100.0500, L500.2500 #### [facility] [address] [place], [address] Hematocrit (Bld) [Volume fraction] 39.4 % Normal 37-47 [facility] Comment on above: Performed By: #### L 100.0500, L500.2500 #### [facility] [address] [place], [address] Hemoglobin (Bld) [Mass/Vol] 12.7 g/dL Normal 12.0-15.0 [facility] Comment on above: Performed By: #### L 100.0500, L500.2500 #### [facility] [address] [place], [address] MCH (RBC) [Entitic mass] 27.1 pg Normal 27.0-32.0 [facility] Comment on above: Performed By: #### L 100.0500, L500.2500 #### [facility] [address] [place], [address] MCHC (RBC) [Mass/Vol] 32.2 g/dL Normal 32-36 [facility] Comment on above: Performed By: #### L 100.0500, L500.2500 #### [facility] [address] [place], [address] MCV (RBC) [Entitic vol] 84.2 fL Normal 81-99 [facility] Comment on above: Performed By: #### L 100.0500, L500.2500 #### [facility] [address] [place], [address] Platelet mean volume (Bld) [Entitic vol] 9.2 fL Normal 6.2-12.0 [facility] Comment on above: Performed By: #### L 100.0500, L500.2500 #### [facility] [address] [place], [address] Platelets (Bld) [#/Vol] 354 10*3/uL Normal 150-450 [facility] Comment on above: Performed By: #### L 100.0500, L500.2500 #### [facility] [address] [place], [address] RBC (Bld) [#/Vol] 4.68 10*6/uL Normal 4.2-5.4 [facility] Comment on above: Performed By: #### L 100.0500, L500.2500 #### [facility] [address], [address] RDW SD 43.1 fl Normal 35.1-43.9 [facility] Comment on above: Performed By: #### L 100.0500, L500.2500 #### [facility] [address] [place], [address] WBC (Bld) [#/Vol] 7.0 10*3/uL Normal 4.4-11.0 [facility] Comment on above: Performed By: #### L 100.0500, L500.2500 #### [facility] [address] [place], [address] Chest PA and Lateralon 11-12 Chest PA and Lateral [facility] [address] [address] Chest PA and Lateral MR#: [id number] Acct: [id number] Name: ROMAN RODRIGUEZ Rep #: [id number] : 1955 F 68 From: Tez Yanez MD PCP: Dr. Nellie Rome MD Status: [facility] Study: Chest PA and Lateral Date of Exam: 11/13/23 Exam# [id number] Ordering Dr: Oswaldo Jones MD :[id number] STUDY: X-RAY CHEST REASON FOR EXAM: Female, 68 years old. Malignant neoplasm of right kidney, except renal pelvis. TECHNIQUE: Frontal and lateral views of the chest. COMPARISON: February 07, 2021 FINDINGS: Stable mild hyperinflation with scattered healed parenchymal granulomatous calcifications. There is no demonstrated pleural abnormality. Cardiomegaly unchanged. Normal mediastinum and vijay. Normal visualized pulmonary arteries. Aortic tortuosity with calcification unchanged. Diffuse moderate thoracic spondylosis unchanged. Normal visualized ribs, clavicles, and shoulders. No abnormality of the visualized soft tissue structures of the upper abdomen. RAD/Chest PA and Lateral IMPRESSION: Stable chest with no acute or active cardiopulmonary disease. Electronically Signed: Tez Yanez MD at 11:29 EDT , CC: Dr. Nellie Rome MD; Dr. Oswaldo Jones MD Furniture And Bedding Inspector: Signed Normal [facility] Basophil percentageOrdered B y: Oswaldo Jones on 05-18-2023 Creatinine [Mass/Vol] 1.4 mg/dL 0.55-1.02 [facility] Bilirubin [Mass/Vol] 0.60 mg/dL 0.20-1.00 [facility] Comment on above: For patients on eltr ombopag therapy, use of Dimension [place] TBIL is not recommended. Chloride [Moles/Vol] 107 mmol/L 98-107 [facility] Glucose [Mass/Vol] 114 mg/dL 74-106 [facility] Comment on above: Fasting Glucose resu lt from 100 to 125 mg/dL suggests IMPAIRED HOMEOSTASIS per A.D.A. criteria. Hemoglobin (Bld) [Mass/Vol] 12.7 g/dL 12.0-15.0 [facility] Potassium [Moles/Vol] 3.9 mmol/L 3.5-5.1 [facility] Protein [Mass/Vol] 7.3 g/dL 6.4-8.2 [facility] Sodium [Moles/Vol] 141 mmol/L 136-145 [facility] WBC (Bld) [#/Vol] 8.8 10*3/uL 4.4-11.0 [facility] Determination of erythrocyte mean corpuscular volume (MCV)Ordered By: Oswaldo Jones on 05-18-2023 MCV (RBC) [Entitic vol] 83.7 fL 81-99 [facility] Erythrocyte distribution wid th ratioOrdered By: Oswaldo Jones on 05-18-2023 Erythrocyte distribution width (RBC) [Ratio] 13.6 % 11.6-14.6 [facility] Erythrocyte distribution wid th standard deviationOrdered By: Oswaldo Jones on 05-18-2023 Erythrocyte distribution width (RBC) [Entitic vol] 41.6 fL 35.1-43.9 [facility] Hematocrit Auto (Bld) [Volum e fraction]Ordered By: Oswaldohenry Jones on 05-18-2023 Hematocrit (Bld) [Volume fraction] 38.1 % 37-47 [facility] - Chemistry and C hemistry - challengeOrdered By: Oswaldo Jones on 05-18-2023 GFR/1.73 sq M.predicted among non-blacks MDRD (S/P/Bld) [Vol rate/Area] 40.0000 mL/min/{1.73_m2} >60 [facility] Albumin/Globulin [Mass ratio] 1.0 {ratio} 0.9-2.4 [facility] ALP [Catalytic activity/Vol] 84 U/L 45-117 [facility] ALT [Catalytic activity/Vol] 25 U/L 13-56 [facility] CO2 [Moles/Vol] 28.0 mmol/L 21.0-32.0 [facility] Globulin (S) [Mass/Vol] 3.7 g/dL 2.2-4.2 [facility] Urea nitrogen/Creatinine [Mass ratio] 12.1 mg/mg 10-20 [facility] - Hematology and Cell countsOrdered By: Oswaldo Jones on 05-18-2023 MCH (RBC) [Entitic mass] 27.9 pg 27.0-32.0 [facility] MCHC (RBC) [Mass/Vol] 33.3 g/dL 32-36 [facility] Platelet mean volume (Bld) [Entitic vol] 9.2 fL 6.2-12.0 [facility] Platelets (Bld) [#/Vol] 367 10*3/uL 150-450 [facility] No Panel InformationOrdered By: Oswaldo Jones on 05-18-2023 Estimated GFR (MDRD) Amer 55 mL/min >60 [facility] Comment on above: GFR Calc Estimated GFR (MDRD) Non-Af Amer 46 mL/min >60 [facility] Comment on above: Non- GFR Calc RBC Auto (Bld) [#/Vol]Ordere d By: Oswaldo Jones on 05-18-2023 RBC (Bld) [#/Vol] 4.55 10*6/uL 4.2-5.[address] [facility] Serum or plasma calcium cl urement (mass/volume)Ordered By: Oswaldo Jones on 05-18-2023 Calcium [Mass/Vol] 9.0 mg/dL 8.5-10.1 [facility] Serum or plasma creatinine m easurement (mass/volume)Ordered By: Oswaldo Jones on 05-18-2023 Creatinine [Mass/Vol] 1.24 mg/dL 0.55-1.02 [facility] Comment on above: The validity of the calculated GFR & GFRAA in patients over 70 years has not been determined. Clinical correlation is essential. Serum or plasma urea nitroge n measurement (mass/volume)Ordered By: Oswaldo Jones on 05-18-2023 Urea nitrogen [Mass/Vol] 15 mg/dL 7-18 [facility] Thin prep Papanicolaou smear with manual screeningOrdered By: Oswaldo Jones on 05-18-2023 Thin prep Papanicolaou smear with manual screening 3.6 g/dL 3.2-5.0 [facility] Thin prep Papanicolaou smear with manual screening 16 U/L 15-37 [facility] Thin prep Papanicolaou smear with manual screening 6 5-15 [facility] Absolute lymphocyte countOrd ered By: Nellie Rome on 02-14-2023 Lymphocytes Auto (Unsp spec) [#/Vol] 2.18 10*3/uL 0.83-4.51 [facility] Basophil percentageOrdered B y: Nellie Rome on 02-14-2023 Basophils/100 WBC (Bld) 0.6 % 0-1 [facility] Bilirubin [Mass/Vol] 0.60 mg/dL 0.20-1.00 [facility] Comment on above: For patients on eltr ombopag therapy, use of Dimension [place] TBIL is not recommended. Chloride [Moles/Vol] 104 mmol/L 98-107 [facility] Cholesterol [Mass/Vol] 204 mg/dL <200 [facility] Comment on above: <200 mg/dL Desirable 200-240 mg/dL Borderline >240 mg/dL High Risk Eosinophils/100 WBC (Bld) 2.6 % 0-5 [facility] Glucose [Mass/Vol] 101 mg/dL 74-106 [facility] Comment on above: Fasting Glucose resu lt from 100 to 125 mg/dL suggests IMPAIRED HOMEOSTASIS per A.D.A. criteria. Neutrophils (Bld) [#/Vol] 4.9 10*3/uL 2.0-7.7 [facility] Neutrophils/100 WBC (Bld) 61.7 % 47-70 [facility] Potassium [Moles/Vol] 3.8 mmol/L 3.5-5.1 [facility] Protein [Mass/Vol] 7.4 g/dL 6.4-8.2 [facility] Sodium [Moles/Vol] 140 mmol/L 136-145 [facility] Triglyceride [Mass/Vol] 288 mg/dL <199 [facility] Comment on above: The drugs N-Acetylcy steine and Metamizole may falsely depress this assay.Serum Triglycerides Reference Interval Normal <150 mg/dL Borderline high 150 - 199 mg/dL High 200 - 499 mg/dL Very High > or = 500 mg/dL WBC (Bld) [#/Vol] 8.0 10*3/uL 4.4-11.0 [facility] Blood erythrocytes count (nu mber/volume)Ordered By: Nellie Rome on 02-14-2023 RBC (Bld) [#/Vol] 4.70 10*6/uL 4.2-5.4 [facility] Blood hemoglobin measurement (mass/volume)Ordered By: Nellie Rome on 02-14-2023 Hemoglobin (Bld) [Mass/Vol] 12.8 g/dL 12.0-15.0 [facility] Blood lymphocytes/100 leukoc ytesOrdered By: Nellie Rome on 02-14-2023 Lymphocytes/100 WBC (Bld) 27.3 % 19-41 [facility] Blood monocytes/100 leukocyt esOrdered By: Nellie Rome on 02-14-2023 Monocytes/100 WBC (Bld) 7.4 % 0-10 [facility] Blood platelet mean volumeOr dered By: Nellie Rome on 02-14-2023 Platelet mean volume (Bld) [Entitic vol] 9.7 fL 6.2-12.0 [facility] Determination of erythrocyte mean corpuscular volume (MCV)Ordered By: Nellie Rome on 02-14-2023 MCV (RBC) [Entitic vol] 84.9 fL 81-99 [facility] Hematocrit Auto (Bld) [Volum e fraction]Ordered By: Nellie Rome on 02-14-2023 Hematocrit (Bld) [Volume fraction] 39.9 % 37-47 [facility] - Chemistry and C hemistry - challengeOrdered By: Nellie Rome on 02-14-2023 ALP [Catalytic activity/Vol] 73 U/L 45-117 [facility] ALT [Catalytic activity/Vol] 19 U/L 13-56 [facility] CO2 [Moles/Vol] 30.0 mmol/L 21.0-32.0 [facility] Globulin (S) [Mass/Vol] 3.9 g/dL 2.2-4.2 [facility] Urea nitrogen/Creatinine [Mass ratio] 15.4 mg/mg 10-20 [facility] - Hematology and Cell countsOrdered By: Nellie Rome on 02-14-2023 Erythrocyte distribution width (RBC) [Entitic vol] 44.2 fL 35.1-43.9 [facility] Erythrocyte distribution width (RBC) [Ratio] 14.3 % 11.6-14.6 [facility] Immature granulocytes/100 WBC (Bld) 0.400 % 0.0-0.9 [facility] Comment on above: IG% - Immature Granu locytes (promyelocytes, myelocytes and metamyelocytes) > 1% indicates that a LEFT SHIFT is Present. MCH (RBC) [Entitic mass] 27.2 pg 27.0-32.0 [facility] Nucleated RBC/100 WBC (Bld) [Ratio] 0 % 0-5 [facility] MCHC Auto (RBC) [Mass/Vol]Or dered By: Nellie Rome on 02-14-2023 MCHC (RBC) [Mass/Vol] 32.1 g/dL 32-36 [facility] No Panel InformationOrdered By: Nellie Rome on 02-14-2023 Estimated GFR (MDRD) Amer 68 mL/min >60 [facility] Comment on above: GFR Calc Estimated GFR (MDRD) Non-Af Amer 56 mL/min >60 [facility] Comment on above: Non- GFR Calc Platelets bldOrdered By: Vernon Rome on 02-14-2023 Platelets (Bld) [#/Vol] 379 10*3/uL 150-450 [facility] Serum or plasma albumin cl urement (mass/volume)Ordered By: Nellie Rome on 02-14-2023 Albumin [Mass/Vol] 3.5 g/dL 3.2-5.0 [facility] Serum or plasma albumin/glob ulin mass ratioOrdered By: Nellie Rome on 02-14-2023 Albumin/Globulin [Mass ratio] 0.9 {ratio} 0.9-2.4 [facility] Serum or plasma calcium cl urement (mass/volume)Ordered By: Nellie Rome on 02-14-2023 Calcium [Mass/Vol] 8.9 mg/dL 8.5-10.1 [facility] Serum or plasma cholesterol in HDL measurement (mass/volume)Ordered By: Nellie Rome on 02-14-2023 Cholesterol in HDL [Mass/Vol] 55 mg/dL >40 [facility] Comment on above: The drugs N-Acetylcy steine and Metamizole may falsely depress this assay. Reference Range HDL <40 mg/dL Low HDL Cholesterol HDL >or= 60 mg/dL High HDL Cholesterol Serum or plasma cholesterol in VLDL measurement (mass/volume)Ordered By: Nellie Rome on 02-14-2023 Cholesterol in VLDL [Mass/Vol] 58 mg/dL 5-40 [facility] Serum or plasma creatinine m easurement (mass/volume)Ordered By: Nellie Rome on 02-14-2023 Creatinine [Mass/Vol] 1.04 mg/dL 0.55-1.02 [facility] Comment on above: The validity of the calculated GFR & GFRAA in patients over 70 years has not been determined. Clinical correlation is essential. Serum or plasma low density lipoprotein (LDL) cholesterol measurement (mass/volume)Ordered By: Nellie Rome on 02-14-2023 Cholesterol in LDL [Mass/Vol] 91 mg/dL 0-130 [facility] Serum or plasma urea nitroge n measurement (mass/volume)Ordered By: Nellie Rome on 02-14-2023 Urea nitrogen [Mass/Vol] 16 mg/dL 7-18 [facility] Thin prep Papanicolaou smear with manual screeningOrdered By: Nellie Rome on 02-14-2023 Thin prep Papanicolaou smear with manual screening 14 U/L 15-37 [facility] Thin prep Papanicolaou smear with manual screening 6 5-15 [facility] Whole blood hemoglobin A1c/t otal hemoglobin ratio (mass fraction)Ordered By: Nellie Rome on 02-14-2023 HbA1c (Bld) [Mass fraction] 5.8 % 3.8-5.6 [facility] Comment on above: Normal < 5.7 % Predi abetic 5.7 - 6.4 % Diabetic >or= 6.5 % Please note range changes. Basophil percentageOrdered B y: Dr. Jones on 04-04-2022 Creatinine [Mass/Vol] 1.0 mg/dL 0.55-1.02 [facility] No Panel InformationOrdered By: Dr. Jones on 04-04-2022 Bedside Estimated GFR (eGFR) > 60.0000 mL/min >60 [facility] [facility] Absolute lymphocyte countOrd ered By: Dr. Rome on 03-17-2022 Lymphocytes Auto (Unsp spec) [#/Vol] 1.96 10*3/uL 0.83-4.51 [facility] Basophil percentageOrdered B y: Dr. Rome on 03-17-2022 Basophils/100 WBC (Bld) 0.7 % 0-1 [facility] Eosinophils/100 WBC (Bld) 3.4 % 0-5 [facility] Neutrophils (Bld) [#/Vol] 4.4 10*3/uL 2.0-7.7 [facility] Neutrophils/100 WBC (Bld) 60.5 % 47-70 [facility] WBC (Bld) [#/Vol] 7.3 10*3/uL 4.4-11.0 [facility] Blood erythrocytes count (nu mber/volume)Ordered By: Dr. Rome on 03-17-2022 RBC (Bld) [#/Vol] 4.83 10*6/uL 4.2-5.4 [facility] Blood hemoglobin measurement (mass/volume)Ordered By: Dr. Rome on 03-17-2022 Hemoglobin (Bld) [Mass/Vol] 13.4 g/dL 12.0-15.0 [facility] Blood lymphocytes/100 leukoc ytesOrdered By: Dr. Rome on 03-17-2022 Lymphocytes/100 WBC (Bld) 26.8 % 19-41 [facility] Blood monocytes/100 leukocyt esOrdered By: Dr. Rome on 03-17-2022 Monocytes/100 WBC (Bld) 8.3 % 0-10 [facility] Blood platelet mean volumeOr dered By: Dr. Rome on 03-17-2022 Platelet mean volume (Bld) [Entitic vol] 10.0 fL 6.2-12.0 [facility] Determination of erythrocyte mean corpuscular volume (MCV)Ordered By: Dr. Rome on 03-17-2022 MCV (RBC) [Entitic vol] 82.0 fL 81-99 [facility] Hematocrit Auto (Bld) [Volum e fraction]Ordered By: Dr. Rome on 03-17-2022 Hematocrit (Bld) [Volume fraction] 39.6 % 37-47 [facility] Iron measurement (mass/mass) Ordered By: Dr. Rome on 03-17-2022 Iron (Unsp spec) [Mass/Mass] 76 ug/dL 50-170 [facility] Laboratory - Hematology and Cell countsOrdered By: Dr. Rome on 03-17-2022 Erythrocyte distribution width (RBC) [Entitic vol] 49.3 fL 35.1-43.9 [facility] Erythrocyte distribution width (RBC) [Ratio] 16.6 % 11.6-14.6 [facility] Immature granulocytes/100 WBC (Bld) 0.300 % 0.0-0.9 [facility] Comment on above: IG% - Immature Granu locytes (promyelocytes, myelocytes and metamyelocytes) > 1% indicates that a LEFT SHIFT is Present. MCH (RBC) [Entitic mass] 27.7 pg 27.0-32.0 [facility] Nucleated RBC/100 WBC (Bld) [Ratio] 0 % 0-5 [facility] MCHC Auto (RBC) [Mass/Vol]Or dered By: Dr. Rome on 03-17-2022 MCHC (RBC) [Mass/Vol] 33.8 g/dL 32-36 [facility] No Panel InformationOrdered By: Dr. Rome on 03-17-2022 Total Iron Binding Capacity 397 ug/dL 250-450 [facility] Platelets bldOrdered By: Dr. Rome on 03-17-2022 Platelets (Bld) [#/Vol] 374 10*3/uL 150-450 [facility] Serum or plasma ferritin [place] surement (mass/volume)Ordered By: Dr. Rome on 03-17-2022 Ferritin [Mass/Vol] 18 ng/mL 8-252 [facility] Serum or plasma iron saturat ion measurement (mass fraction)Ordered By: Dr. Rome on 03-17-2022 Iron saturation [Mass fraction] 19.1 % 15.0-55.0 [facility] Absolute lymphocyte countOrd ered By: Dr. Rome on 12-01-2021 Lymphocytes Auto (Unsp spec) [#/Vol] 1.87 10*3/uL 0.83-4.51 [facility] Basophil percentageOrdered B y: Dr. Rome on 12-01-2021 Basophils/100 WBC (Bld) 0.5 % 0-1 [facility] Eosinophils/100 WBC (Bld) 2.3 % 0-5 [facility] Neutrophils (Bld) [#/Vol] 6.0 10*3/uL 2.0-7.7 [facility] Neutrophils/100 WBC (Bld) 69.3 % 47-70 [facility] WBC (Bld) [#/Vol] 8.7 10*3/uL 4.4-11.0 [facility] Blood erythrocytes count (nu mber/volume)Ordered By: Dr. Rome on 12-01-2021 RBC (Bld) [#/Vol] 4.55 10*6/uL 4.2-5.4 [facility] Blood hemoglobin measurement (mass/volume)Ordered By: Dr. Rome on 12-01-2021 Hemoglobin (Bld) [Mass/Vol] 10.9 g/dL 12.0-15.0 [facility] Blood lymphocytes/100 leukoc ytesOrdered By: Dr. Rome on 12-01-2021 Lymphocytes/100 WBC (Bld) 21.6 % 19-41 [facility] Blood monocytes/100 leukocyt esOrdered By: Dr. Rome on 12-01-2021 Monocytes/100 WBC (Bld) 6.1 % 0-10 [facility] Blood platelet mean volumeOr dered By: Dr. Rome on 12-01-2021 Platelet mean volume (Bld) [Entitic vol] 9.5 fL 6.2-12.0 [facility] Determination of erythrocyte mean corpuscular volume (MCV)Ordered By: Dr. Rome on 12-01-2021 MCV (RBC) [Entitic vol] 78.5 fL 81-99 [facility] Hematocrit Auto (Bld) [Volum e fraction]Ordered By: Dr. Rome on 12-01-2021 Hematocrit (Bld) [Volume fraction] 35.7 % 37-47 [facility] Iron measurement (mass/mass) Ordered By: Dr. Rome on 12-01-2021 Iron (Unsp spec) [Mass/Mass] 36 ug/dL 50-170 [facility] Laboratory - Hematology and Cell countsOrdered By: Dr. Rome on 12-01-2021 Erythrocyte distribution width (RBC) [Entitic vol] 44.9 fL 35.1-43.9 [facility] Erythrocyte distribution width (RBC) [Ratio] 15.8 % 11.6-14.6 [facility] Immature granulocytes/100 WBC (Bld) 0.200 % 0.0-0.9 [facility] Comment on above: IG% - Immature Granu locytes (promyelocytes, myelocytes and metamyelocytes) > 1% indicates that a LEFT SHIFT is Present. MCH (RBC) [Entitic mass] 24.0 pg 27.0-32.0 [facility] Nucleated RBC/100 WBC (Bld) [Ratio] 0 % 0-5 [facility] MCHC Auto (RBC) [Mass/Vol]Or dered By: Dr. Rome on 12-01-2021 MCHC (RBC) [Mass/Vol] 30.5 g/dL 32-36 [facility] No Panel InformationOrdered By: Dr. Rome on 12-01-2021 Total Iron Binding Capacity 426 ug/dL 250-450 [facility] Vitamin D 25-Hydroxy 43.8 ng/mL [facility] Comment on above: Vitamin D 25(OH) Sta tus Range Deficiency <20 ng/mL (50nmol/L) Insufficiency 20 - 30 ng/mL (50 - 75 nmol/L) Sufficiency 30 - 100 ng/mL (75 - 250 nmol/L) Toxicity >100 ng/mL (>250 nmol/L) Platelets bldOrdered By: Dr. Rome on 12-01-2021 Platelets (Bld) [#/Vol] 450 10*3/uL 150-450 [facility] Serum or plasma ferritin [place] surement (mass/volume)Ordered By: Dr. Rome on 12-01-2021 Ferritin [Mass/Vol] 7 ng/mL 8-252 [facility] Absolute lymphocyte counton 10-13-2021 Lymphocytes Auto (Unsp spec) [#/Vol] 1.97 10*3/uL 0.83-4.51 [facility] Work Phone: Basophil percentageon 2021 Basophils/100 WBC (Bld) 0.3 % 0-1 [facility] Work Phone: Eosinophils/100 WBC (Bld) 5.9 % 0-5 [facility] Work Phone: Neutrophils (Bld) [#/Vol] 9.3 10*3/uL 2.0-7.7 [facility] Work Phone: Neutrophils/100 WBC (Bld) 71.3 % 47-70 [facility] Work Phone: WBC (Bld) [#/Vol] 13.0 10*3/uL 4.4-11.0 [facility] Work Phone: Blood erythrocytes count (nu mber/volume)on 10-13-2021 RBC (Bld) [#/Vol] 4.08 10*6/uL 4.2-5.4 [facility] Work Phone: Blood hemoglobin measurement (mass/volume)on 10-13-2021 Hemoglobin (Bld) [Mass/Vol] 10.4 g/dL 12.0-15.0 [facility] Work Phone: [phone] Blood lymphocytes/100 leukoc yteson 10-13-2021 Lymphocytes/100 WBC (Bld) 15.2 % 19-41 [facility] Work Phone: Blood monocytes/100 leukocyt eson 10-13-2021 Monocytes/100 WBC (Bld) 6.9 % 0-10 [facility] Work Phone: Blood platelet mean volumeon 10-13-2021 Platelet mean volume (Bld) [Entitic vol] 9.4 fL 6.2-12.0 [facility] Work Phone: Determination of erythrocyte mean corpuscular volume (MCV)on 10-13-2021 MCV (RBC) [Entitic vol] 80.9 fL 81-99 [facility] Work Phone: Hematocrit Auto (Bld) [Volum e fraction]on 10-13-2021 Hematocrit (Bld) [Volume fraction] 33.0 % 37-47 [facility] Work Phone: Laboratory - Hematology and Cell countson 10-13-2021 Erythrocyte distribution width (RBC) [Entitic vol] 43.0 fL 35.1-43.9 [facility] Work Phone: Erythrocyte distribution width (RBC) [Ratio] 14.9 % 11.6-14.6 [facility] Work Phone: Immature granulocytes/100 WBC (Bld) 0.400 % 0.0-0.9 [facility] Work Phone: Comment on above: IG% - Immature Granu locytes (promyelocytes, myelocytes and metamyelocytes) > 1% indicates that a LEFT SHIFT is Present. MCH (RBC) [Entitic mass] 25.5 pg 27.0-32.0 [facility] Work Phone: Nucleated RBC/100 WBC (Bld) [Ratio] 0 % 0-5 [facility] Work Phone: MCHC Auto (RBC) [Mass/Vol]on 10-13-2021 MCHC (RBC) [Mass/Vol] 31.5 g/dL 32-36 [facility] Work Phone: Platelets bldon 10-13-2021 Platelets (Bld) [#/Vol] 424 10*3/uL 150-450 [facility] Work Phone: Basophil percentageon 2021 Chloride [Moles/Vol] 105 mmol/L 98-107 [facility] Work Phone: Glucose [Mass/Vol] 126 mg/dL 74-106 [facility] Work Phone: Comment on above: Fasting Glucose resu lt greater than or equal to 126 mg/dL suggests DIABETES MELLITUS per A.D.A. criteria. Potassium [Moles/Vol] 4.2 mmol/L 3.5-5.1 [facility] Work Phone: Sodium [Moles/Vol] 137 mmol/L 136-145 [facility] Work Phone: Glucose Glucometer (BldC) [M ass/Vol]on 10-12-2021 Glucose [Mass/Vol] 131 mg/dL 74-106 [facility] Work Phone: Comment on above: MANAGEMENT OF PATIEN T CARE PER NURSING PROTOCOL Laboratory - Chemistry and C hemistry - challengeon 10-12-2021 CO2 [Moles/Vol] 28.0 mmol/L 21.0-32.0 [facility] Work Phone: Urea nitrogen/Creatinine [Mass ratio] 9.9 mg/mg 10-20 [facility] Work Phone: No Panel Informationon 10-12 Estimated Creatinine Clearance Calc 33.41 ml/min [facility] Work Phone: Estimated GFR (MDRD) Amer 52 mL/min >60 [facility] Work Phone: Comment on above: GFR Calc Estimated GFR (MDRD) Non-Af Amer 43 mL/min >60 [facility] Work Phone: Comment on above: Non- GFR Calc Serum or plasma calcium cl urement (mass/volume)on 10-12-2021 Calcium [Mass/Vol] 8.9 mg/dL 8.5-10.1 [facility] Work Phone: Serum or plasma creatinine m easurement (mass/volume)on 10-12-2021 Creatinine [Mass/Vol] 1.31 mg/dL 0.55-1.02 [facility] Work Phone: Comment on above: The validity of the calculated GFR & GFRAA in patients over 70 years has not been determined. Clinical correlation is essential. Serum or plasma urea nitroge n measurement (mass/volume)on 10-12-2021 Urea nitrogen [Mass/Vol] 13 mg/dL 7-18 [facility] Work Phone: Thin prep Papanicolaou smear with manual screeningon 10-12-2021 Thin prep Papanicolaou smear with manual screening 4 5-15 [facility] Work Phone: Basophil percentageon 2021 Bilirubin [Mass/Vol] 0.30 mg/dL 0.20-1.00 [facility] Work Phone: Comment on above: For patients on eltr ombopag therapy, use of Dimension [place] TBIL is not recommended. Protein [Mass/Vol] 6.6 g/dL 6.4-8.2 [facility] Work Phone: INR in Blood by Coagulation assayon 10-06-2021 INR Coag (Bld) [Relative time] 1.1 {INR} [facility] Work Phone: Laboratory - Chemistry and C hemistry - challengeon 10-06-2021 ALP [Catalytic activity/Vol] 60 U/L 45-117 [facility] Work Phone: ALT [Catalytic activity/Vol] 17 U/L 13-56 [facility] Work Phone: Globulin (S) [Mass/Vol] 3.8 g/dL 2.2-4.2 [facility] Work Phone: Magnesium [Mass/Vol] 2.0 mg/dL 1.6-2.6 [facility] Work Phone: Laboratory - Coagulationon 0 10-06-2021 aPTT Coag (Bld) [Time] 30.2 s 24.1-36.2 [facility] Work Phone: PT Coag (PPP) [Time] 13.7 s 11.7-14.9 [facility] Work Phone: No Panel Informationon 10-06 Thyroid Stimulating Hormone (TSH) 0.86 uIU/mL 0.358-3.74 [facility] Work Phone: Serum or plasma albumin cl urement (mass/volume)on 10-06-2021 Albumin [Mass/Vol] 2.8 g/dL 3.2-5.0 [facility] Work Phone: Serum or plasma albumin/glob ulin mass ratioon 10-06-2021 Albumin/Globulin [Mass ratio] 0.7 {ratio} 0.9-2.4 [facility] Work Phone: Serum or plasma carcinoembry onic antigen measurement (mass/volume)on 10-06-2021 Carcinoembryonic Ag [Mass/Vol] 0.7 ng/mL 0.0-4.7 [facility] Work Phone: Comment on above: Nonsmokers <3.9 Smok ers <5.6[employer] Electrochemiluminescence Immunoassay(ECLIA)Values obtained with different assay methods or kitscannot be used interchangeably. Results cannot beinterpreted as absolute evidence of the presence orabsence of malignant disease.Performed at: [address] [id number] Director: Beto Yap PhD, Phone: [phone] Thin prep Papanicolaou smear with manual screeningon 10-06-2021 Thin prep Papanicolaou smear with manual screening 10 U/L 15-37 [facility] Work Phone: Basophil percentageon 2021 Creatinine [Mass/Vol] 1.0 mg/dL 0.55-1.02 [facility] Work Phone: Laboratory - Chemistry and C hemistry - challengeon 09-08-2021 GFR/1.73 sq M.predicted among non-blacks MDRD (S/P/Bld) [Vol rate/Area] 56.0000 mL/min/{1.73_m2} >60 [facility] Work Phone: Absolute lymphocyte counton 09-01-2021 Lymphocytes Auto (Unsp spec) [#/Vol] 2.73 10*3/uL 0.83-4.51 [facility] Work Phone: Basophil percentageon 2021 Basophils/100 WBC (Bld) 0.2 % 0-1 [facility] Work Phone: Eosinophils/100 WBC (Bld) 1.5 % 0-5 [facility] Work Phone: Neutrophils (Bld) [#/Vol] 9.1 10*3/uL 2.0-7.7 [facility] Work Phone: Neutrophils/100 WBC (Bld) 69.6 % 47-70 [facility] Work Phone: WBC (Bld) [#/Vol] 13.0 10*3/uL 4.4-11.0 [facility] Work Phone: Blood erythrocytes count (nu mber/volume)on 09-01-2021 RBC (Bld) [#/Vol] 4.14 10*6/uL 4.2-5.4 [facility] Blood hemoglobin measurement (mass/volume)on 09-01-2021 Hemoglobin (Bld) [Mass/Vol] 11.3 g/dL 12.0-15.0 [facility] Work Phone: Blood lymphocytes/100 leukoc yteson 09-01-2021 Lymphocytes/100 WBC (Bld) 21.0 % 19-41 [facility] Work Phone: Blood monocytes/100 leukocyt eson 09-01-2021 Monocytes/100 WBC (Bld) 7.3 % 0-10 [facility] Work Phone: Blood platelet mean volumeon 09-01-2021 Platelet mean volume (Bld) [Entitic vol] 9.0 fL 6.2-12.0 [facility] Work Phone: Determination of erythrocyte mean corpuscular volume (MCV)on 09-01-2021 MCV (RBC) [Entitic vol] 84.3 fL 81-99 [facility] Work Phone: Hematocrit Auto (Bld) [Volum e fraction]on 09-01-2021 Hematocrit (Bld) [Volume fraction] 34.9 % 37-47 [facility] Work Phone: Laboratory - Hematology and Cell countson 09-01-2021 Erythrocyte distribution width (RBC) [Entitic vol] 42.3 fL 35.1-43.9 [facility] Work Phone: Erythrocyte distribution width (RBC) [Ratio] 13.6 % 11.6-14.6 [facility] Work Phone: Immature granulocytes/100 WBC (Bld) 0.400 % 0.0-0.9 [facility] Work Phone: Comment on above: IG% - Immature Granu locytes (promyelocytes, myelocytes and metamyelocytes) > 1% indicates that a LEFT SHIFT is Present. MCH (RBC) [Entitic mass] 27.3 pg 27.0-32.0 [facility] Work Phone: Nucleated RBC/100 WBC (Bld) [Ratio] 0 % 0-5 [facility] Work Phone: MCHC Auto (RBC) [Mass/Vol]on 09-01-2021 MCHC (RBC) [Mass/Vol] 32.4 g/dL 32-36 [facility] Work Phone: Platelets bldon 09-01-2021 Platelets (Bld) [#/Vol] 496 10*3/uL 150-450 [facility] Work Phone: Vital Signs Date Time Vital Sign Value Performing Clinician Faci lity 05-28-2024 08:06-0400 Body mass index (BMI) [Ratio] 40 kg/m2 Dr. Nellie Rome MD Work Phone: [facility] 05-28-2024 08:06-0400 Body temperature 97.4 [degF] Dr. Nellie Rome MD Work Phone: [facility] 05-28-2024 08:06-0400 Body weight 99.[address] Nellie Rome MD Work Phone: [facility] 05-28-2024 08:06-0400 Diastolic blood pressure 76 mm[Hg] Dr. Nellie Rome MD Work Phone: [facility] 05-28-2024 08:06-0400 Heart rate 70 /min Dr. Nellie Rome MD Work Phone: [facility] 05-28-2024 08:06-0400 Respiratory rate 20 /min Dr. Nellie Rome MD Work Phone: [facility] 05-28-2024 08:06-0400 SaO2% (BldA) [Mass fraction] 97 % Dr. Nellie Rome MD Work Phone: [facility] 05-28-2024 08:06-0400 Systolic blood pressure 131 mm[Hg] Dr. Nellie Rome MD Work Phone: [facility] 05-23-2023 06:34-0400 Body height 157.[address] Nellie Rome Work Phone: [facility] 05-23-2023 06:34-0400 Body mass index (BMI) [Ratio] 41 kg/m2 Dr. Nellie Rome Work Phone: [facility] 05-23-2023 06:34-0400 Body temperature 97.3 [degF] Dr. Nellie Rome Work Phone: [facility] 05-23-2023 06:34-0400 Body weight 101.[address] Nellie Rome Work Phone: [facility] 05-23-2023 06:34-0400 Diastolic blood pressure 83 mm[Hg] Dr. Nellie Rome Work Phone: [facility] 05-23-2023 06:34-0400 Heart rate 67 /min Dr. Nellie Rome Work Phone: [facility] 05-23-2023 06:34-0400 Respiratory rate 18 /min Dr. Nellie Rome Work Phone: [facility] 05-23-2023 06:34-0400 SaO2% (BldA) [Mass fraction] 97 % Dr. Nellie Rome Work Phone: [facility] 05-23-2023 06:34-0400 Systolic blood pressure 141 mm[Hg] Dr. Nellie Rome Work Phone: [facility] 02-23-2022 11:08-0500 Body height 157.[address] Nellie Rome Work Phone: [facility] 02-23-2022 11:08-0500 Body mass index (BMI) [Ratio] 40.6 kg/m2 Dr. Nellie Rome Work Phone: [facility] 02-23-2022 11:08-0500 Body temperature 98.2 [degF] Dr. Nellie Rome Work Phone: [facility] 02-23-2022 11:08-0500 Body weight 100.[address] Nellie Rome Work Phone: [facility] 02-23-2022 11:08-0500 Diastolic blood pressure 79 mm[Hg] Dr. Nellie Rome Work Phone: [facility] 02-23-2022 11:08-0500 Heart rate 79 /min Dr. Nellie Rome Work Phone: [facility] 02-23-2022 11:08-0500 Respiratory rate 18 /min Dr. Nellie Rome Work Phone: [facility] 02-23-2022 11:08-0500 SaO2% (BldA) [Mass fraction] 69 % Dr. Nellie Rome Work Phone: [facility] 02-23-2022 11:08-0500 Systolic blood pressure 135 mm[Hg] Dr. Nellie Rome Work Phone: [facility] 10-24-2021 12:46-0400 Body weight 97.[address] Nellie Rome Work Phone: [facility] Work Phone: 10-13-2021 10:53-0400 Diastolic blood pressure 56 mm[Hg] Dr. Nellie Rome Work Phone: [facility] Work Phone: 10-13-2021 10:53-0400 Systolic blood pressure 125 mm[Hg] Dr. Nellie Rome Work Phone: [facility] Work Phone: 10-13-2021 09:25-0400 Body temperature 98.4 [degF] Dr. Nellie Rome Work Phone: [facility] Work Phone: 10-13-2021 09:25-0400 Heart rate 72 /min Dr. Nellie Rome Work Phone: [facility] Work Phone: 10-13-2021 09:25-0400 Respiratory rate 16 /min Dr. Nellie Rome Work Phone: [facility] Work Phone: 10-13-2021 09:25-0400 SaO2% (BldA) [Mass fraction] 97 % Dr. Nellie Rome Work Phone: [facility] Work Phone: 10-12-2021 15:17-0400 Body height 157.[address] Nellie Rome Work Phone: [facility] Work Phone: 10-12-2021 15:17-0400 Body weight [address] Nellie Rome Work Phone: [facility] Work Phone: 10-11-2021 13:45-0400 Inhaled oxygen flow rate 4 L/min Dr. Nellie Rome Work Phone: [facility] Work Phone: 10-11-2021 06:05-0400 Body mass index (BMI) [Ratio] 39.1 kg/m2 Dr. Nellie Rome Work Phone: [facility] Work Phone: 09-19-2021 14:42-0400 Body mass index (BMI) [Ratio] 37.7 kg/m2 Dr. Nellie Rome Work Phone: [facility] Work Phone: 09-19-2021 14:42-0400 Body temperature 97.9 [degF] Dr. Nellie Rome Work Phone: [facility] Work Phone: 09-19-2021 14:42-0400 Body weight 96.[address] Nellie Rome Work Phone: [facility] Work Phone: 09-19-2021 14:42-0400 Diastolic blood pressure 69 mm[Hg] Dr. Nellie Rome Work Phone: [facility] Work Phone: 09-19-2021 14:42-0400 Heart rate 82 /min Dr. Nellie Rome Work Phone: [facility] Work Phone: 09-19-2021 14:42-0400 Respiratory rate 16 /min Dr. Nellie Rome Work Phone: [facility] Work Phone: 09-19-2021 14:42-0400 SaO2% (BldA) [Mass fraction] 98 % Dr. Nellie Rome Work Phone: [facility] Work Phone: 09-19-2021 14:42-0400 Systolic blood pressure 112 mm[Hg] Dr. Nellie Rome Work Phone: [facility] Work Phone: 09-13-2021 12:30-0400 Diastolic blood pressure 63 mm[Hg] Dr. Nellie Rome Work Phone: [facility] Work Phone: 09-13-2021 12:30-0400 Systolic blood pressure 133 mm[Hg] Dr. Nellie Rome Work Phone: [facility] Work Phone: 09-13-2021 11:35-0400 Body temperature 97.7 [degF] Dr. Nellie Rome Work Phone: [facility] Work Phone: 09-13-2021 11:35-0400 Heart rate 58 /min Dr. Nellie Rome Work Phone: [facility] Work Phone: 09-13-2021 11:35-0400 Respiratory rate 16 /min Dr. Nellie Rome Work Phone: [facility] Work Phone: 09-13-2021 11:35-0400 SaO2% (BldA) [Mass fraction] 100 % Dr. Nellie Rome Work Phone: [facility] Work Phone: 09-13-2021 09:41-0400 Body height 160.[address] Nellie Rome Work Phone: [facility] Work Phone: 09-13-2021 09:41-0400 Body mass index (BMI) [Ratio] 37 kg/m2 Dr. Nellie Rome Work Phone: [facility] Work Phone: 09-13-2021 09:41-0400 Body weight [address] Nellie Rome Work Phone: [facility] Work Phone: 09-07-2021 13:26-0400 Body mass index (BMI) [Ratio] 38.7 kg/m2 Dr. Nellie Rome Work Phone: [facility] Work Phone: 09-07-2021 13:26-0400 Body temperature 97.3 [degF] Dr. Nellie Rome Work Phone: [facility] Work Phone: 09-07-2021 13:26-0400 Body weight 99.[address] Nellie Rome Work Phone: [facility] Work Phone: 09-07-2021 13:26-0400 Diastolic blood pressure 72 mm[Hg] Dr. Nellie Rome Work Phone: [facility] Work Phone: 09-07-2021 13:26-0400 Heart rate 77 /min Dr. Nellie Rome Work Phone: [facility] Work Phone: 09-07-2021 13:26-0400 Respiratory rate 18 /min Dr. Nellie Rome Work Phone: [facility] Work Phone: 09-07-2021 13:26-0400 SaO2% (BldA) [Mass fraction] 98 % Dr. Nellie Rome Work Phone: [facility] Work Phone: 09-07-2021 13:26-0400 Systolic blood pressure 117 mm[Hg] Dr. Nellie Rome Work Phone: [facility] Work Phone: 07-04-2021 11:18-0400 Body height 160.[address] Nellie Rome Work Phone: [facility] Work Phone: 07-04-2021 11:18-0400 Body mass index (BMI) [Ratio] 39.9 kg/m2 Dr. Nellie Rome Work Phone: [facility] Work Phone: 07-04-2021 11:18-0400 Body temperature 97.4 [degF] Dr. Nellie Rome Work Phone: [facility] Work Phone: 07-04-2021 11:18-0400 Body weight 102.[address] Nellie Rome Work Phone: [facility] Work Phone: 07-04-2021 11:18-0400 Diastolic blood pressure 77 mm[Hg] Dr. Nellie Rome Work Phone: [facility] Work Phone: 07-04-2021 11:18-0400 Heart rate 67 /min Dr. Nellie Rome Work Phone: [facility] Work Phone: 07-04-2021 11:18-0400 Respiratory rate 16 /min Dr. Nellie Rome Work Phone: [facility] Work Phone: 07-04-2021 11:18-0400 SaO2% (BldA) [Mass fraction] 95 % Dr. Nellie Rome Work Phone: [facility] Work Phone: 07-04-2021 11:18-0400 Systolic blood pressure 126 mm[Hg] Dr. Nellie Rome Work Phone: [facility] Work Phone: Encounters Encounter Date Encounter Type Care Provider Facility Start: 08-25-2024 ambulatory Nellie Rome Facility: [facility] Start: 06-23-2024 End: 06-23-[address] Nellie oRme MD Work Phone: [facility] Work Phone: Start: 06-23-2024 End: 06-23-[address] Oswaldo Jones MD -[facility], [facility] Work Phone: Start: 06-23-2024 End: 06-23-2024 ambulatory Oswaldo Jones Facility:[facility] Start: 05-28-2024 End: 05-28-2024 Patient encounter procedure Rani Clemons [facility] Work Phone: Start: 05-28-2024 End: 05-28-2024 ambulatory Rani Clemons NP Facility:[facility] Start: 05-13-2024 ambulatory Oswaldo Jones Faci lity:[facility] Start: 04-03-2024 Encounter for genera l adult medical examination without abnormal findings Nellie Rome [facility] Start: 03-07-2024 End: 03-07-[address] Nellie Rome MD -Laboratory Work Phone: Start: 03-07-2024 End: 03-07-2024 ambulatory Nellie Rome Facility:[facility] Start: 02-19-2024 End: 02-[facility] Start: 11-13-2023 End: 11-13-[facility] Start: 06-29-2023 End: 06-29-[address] Nellie Rome Work Phone: [facility] Work Phone: Start: 06-29-2023 End: 06-29-[address] Nellie Rome Work Phone: [facility]-Sleep Lab Work Phone: Start: 06-05-2023 End: 06-05-[address] Nellie Rome Work Phone: [facility] Work Phone: Start: 06-05-2023 End: 06-05-[address] Nellie Rome Work Phone: [facility]-Outpatient Breast Imaging Work Phone: Start: 06-01-2023 End: 06-01-[address] Nellie Rome Work Phone: [facility] Work Phone: Start: 06-01-2023 End: 06-01-[address] Nellie Rome Work Phone: [facility]-Sleep Lab Work Phone: Start: 05-23-2023 End: 05-23-[address] Nellie Rome Work Phone: [facility]-Pulmonary Medicine [facility] Work Phone: Start: 05-18-2023 End: 05-18-2023 ambulatory [facility] Work Phone: Start: 05-18-2023 End: 05-18-2023 Patient encounter procedure [facility]-Cat Scan, [facility] Work Phone: Start: 02-14-2023 End: 02-14-2023 ambulatory [facility] Work Phone: Start: 02-14-2023 End: 02-14-2023 Patient encounter procedure [facility]-Laboratory Work Phone: Start: 10-30-2022 End: 10-30-2022 ambulatory [facility] Work Phone: Start: 10-30-2022 End: 10-30-2022 [facility] Start: 05-04-2022 End: 05-04-[address] Nellie Rome Work Phone: [facility] Work Phone: Start: 05-04-2022 End: 05-04-[address] Nellie Rome Work Phone: [facility]-Physical Therapy Start: 04-13-[address] Alessandra Rome Work Phone: [facility]-Physical Therapy Start: 04-04-2022 End: 04-04-[address] Nellie Rome Work Phone: [facility] Work Phone: Start: 04-04-2022 End: 04-04-[address] Nellie Rome Work Phone: [facility]-Cat Scan, [facility] Start: 03-30-[address] Alessandra Rome Work Phone: [facility]-Physical Therapy Start: 03-24-2022 End: 03-24-[address] Nellie Rome Work Phone: [facility] Work Phone: Start: 03-24-2022 End: 03-24-[address] Nellie Rome Work Phone: [facility]-Outpatient Breast Imaging Start: 03-23-[address] Alessandra Rome Work Phone: [facility]-Physical Therapy Start: 03-17-2022 End: 03-17-[address] Nellie Rome Work Phone: [facility] Work Phone: Start: 03-17-2022 End: 03-17-[address] Nellie Rome Work Phone: [facility]-Laboratory, [place] [facility] Start: 02-23-2022 End: 02-23-[address] Nellie Rome Work Phone: [facility]-Pulmonary Medicine [facility] Start: 01-05-2022 End: 01-05-[address] Nellie Rome Work Phone: [facility] Work Phone: Start: 01-05-2022 End: 01-05-[address] Nellie Rome Work Phone: [facility]-Sleep Lab Start: 12-01-2021 End: 12-01-[address] Nellie Rome Work Phone: [facility] Work Phone: Start: 12-01-2021 End: 12-01-[address] Nellie Rome Work Phone: [facility]-Laboratory Start: 10-24-2021 End: 10-24-[address] Nellie Rome Work Phone: [facility] Start: 10-13-2021 Non-patient / Non-visit Dr. Dieter Rome Work Phone: [facility] Start: 10-12-2021 Non-patient / Non-visit Dr. Dieter Rome Work Phone: [facility] Start: 10-11-2021 Non-patient / Non-visit Dr. Dieter Rome Work Phone: [facility] Start: 10-11-2021 End: 10-13-2021 Evaluation and management of inpatient Dr. Nellie Rome Work Phone: [facility]-Medical Surgical 3 Start: 09-19-2021 End: 09-19-[address] Nellie Rome Work Phone: [facility] Start: 09-13-2021 Non-patient / Non-visit Dr. Dieter Rome Work Phone: [facility] Start: 09-13-2021 End: 09-13-2021 Admission to same day surgery center Dr. Nellie Rome Work Phone: [facility]-Endoscopy Start: 09-08-2021 End: 09-08-[address] Nellie Rome Work Phone: [facility] Start: 09-08-2021 End: 09-13-2021 Non-patient / Non-visit Dr. Nellie Rome Work Phone: [facility] Start: 09-07-2021 End: 09-07-[address] Nellie Rome Work Phone: [facility] Start: 09-01-2021 End: 09-01-[address] Nellie Rome Work Phone: [facility]-Laboratory Start: 07-04-2021 End: 07-04-[address] Nellie Rome Work Phone: [facility] [place] Procedures Date Procedure Procedure Detail Performing Clinician Start: 06-23-2024 Computed tomography of abdomen and pelvis with contrast Dr. Nellie Rome MD Work Phone: Start: 06-05-2023 Screening mammography Mj Rome Work Phone: Start: 05-18-2023 Computed tomography of abdomen and pelvis with intravenous contrast Start: 02-14-2023 Plain x-ray of pelvi s and lower extremity Start: 10-30-2022 CT of abdomen and pe lvis without contrast Start: 04-04-2022 CT of chest and abdomen Dr. Nellie Rome Work Phone: Start: 03-24-2022 Screening mammography Mj Rome Work Phone: Start: 10-11-2021 Extended right hemico[address]omy Dr. Nellie Rome Work Phone: Start: 10-11-2021 Total cholecystectom y and exploration of common bile duct Dr. Nellie Rome Work Phone: Start: 09-13-[address] Nellie Rome Work Phone: Start: 09-08-2021 CT of chest and abdomen Dr. Nellie Rome Work Phone: Start: 09-08-2021 US scan of gallbladder Dr. Nellie Rome Work Phone: Plan of Treatment Date Care Activity Detail Author Start: 10-13-2021 Patient discharge [facility] Work Phone: Start: 10-12-2021 Introduction of urinary catheter [facility] Work Phone: Start: 10-12-2021 Measuring intake and output [facility] Work Phone: Start: 10-12-2021 Measuring intake and output [facility] Work Phone: Start: 10-12-2021 Removal of urinary catheter [facility] Work Phone: Start: 10-12-2021 [facility] Work Phone: Start: 10-12-2021 Measuring intake and output [facility] Work Phone: Start: 10-11-2021 Measuring intake and output [facility] Work Phone: Start: 10-11-2021 Following clinical pathway protocol [facility] Work Phone: Start: 10-11-2021 Ambulation therapy management [facility] Work Phone: Start: 10-11-2021 Application of intermittent pneumatic compression device [facility] Work Phone: Start: 10-11-2021 Catheterization of vein [facility] Work Phone: Start: 10-11-2021 Continuous pulse oximetry [facility] Work Phone: Start: 10-11-2021 Elevation of head of bed [facility] Work Phone: Start: 10-11-2021 Incentive spirometry [facility] Work Phone: Start: 10-11-2021 Notification of physician [facility] Work Phone: Start: 10-11-2021 Oxygen therapy [facility] Work Phone: Start: 10-11-2021 Patient education [facility] Work Phone: Start: 10-11-2021 Procedures relating to eating and drinking [facility] Work Phone: Start: 10-11-2021 Taking patient vital signs [facility] Work Phone: Start: 10-11-2021 Wound care [facility] Work Phone: Start: 10-11-2021 [facility] Work Phone: Start: 10-11-2021 Introduction of urinary catheter [facility] Work Phone: Start: 10-11-2021 Measuring intake and output [facility] Work Phone: Start: 10-11-2021 Admission procedure [facility] Work Phone: Start: 09-13-2021 Colonoscopy w/biopsy single/multiple COLONOSCOPY AND BIOPSY [facility] Work Phone: Start: 09-13-2021 Colsc flx with directed submucosal njx any sbst COLONOSCOPY SUBMUCOUS NJX [facility] Work Phone: Start: 09-13-2021 Egd transoral biopsy single/multiple EGD BIOPSY SINGLE/MULTIPLE [facility] Work Phone: Start: 09-13-2021 Patient discharge [facility] Work Phone: Patient referral [facility] Work Phone: [facility] Work Phone: Payers Date Payer Category Payer Self-pay [id number] 2023 Medicare [id number] 2023 Unknown [id number] [address] [facility] [id number] Unknown [id number] 62 Unknown [id number] 62 Unknown [id number] 62 Unknown [id number] 62 Unknown [id number] 62 Unknown [id number] 62 Unknown [id number] Social History Date Type Detail Facility Start: 07-04-2021 End: 05-23-2023 Tobacco smoking status NDIS Unknown if ever smoked [facility] Start: 1955 Sex Assigned At Female [facility] Start: 05-23-2023 Tobacco smoking stat [facility] Never smoked tobacco (finding) [facility] Start: 06-27-2024 Sex Female (finding) [facility] Medical Equipment Procedure Code Equipment Code Equipment Origin al Text Equipment Identifier Dates Robot-assisted simple nephrectomy 45mm Vascular Reload FDA Start: 02-09-2021 Robot-assisted simple nephrectomy ELICIA POLANCO LG FDA Start: 02-09-2021 Robot-assisted simple nephrectomy ELICIA POLANCO LG FDA Start: 02-09-2021 Robot-assisted simple nephrectomy ELICIA POLANCO LG FDA Start: 02-09-2021 Robot-assisted simple nephrectomy ELICIA POLANCO LG FDA Start: 02-09-2021 Robot-assisted simple nephrectomy 45mm Vascular Reload FDA Start: 02-09-2021 Robot-assisted simple nephrectomy ELICIA POLANCO LG FDA Start: 02-09-2021 Robot-assisted simple nephrectomy ELICIA POLANCO LG FDA Start: 02-09-2021 Robot-assisted simple nephrectomy CLIP,HEMOLOCK LG NUVIACK FDA Start: 02-09-2021 Robot-assisted simple nephrectomy CLIP,HEMOLOCK LG WECK FDA Start: 02-09-2021 Robot-assisted simple nephrectomy 45mm Vascular Reload FDA Start: 02-09-2021 Robot-assisted simple nephrectomy CLIP,HEMOLOCK LG WECK FDA Start: 02-09-2021 Robot-assisted simple nephrectomy CLIP,HEMOLOCK LG WECK FDA Start: 02-09-2021 Robot-assisted simple nephrectomy CLIP,HEMOLOCK LG WECK FDA Start: 02-09-2021 Robot-assisted simple nephrectomy CLIP,HEMOLOCK LG WECK FDA Start: 02-09-2021 Robot-assisted simple nephrectomy 45mm Vascular Reload FDA Start: 02-09-2021 Robot-assisted simple nephrectomy CLIP,HEMOLOCK SIRENA PEDERSENCK FDA Start: 02-09-2021 Robot-assisted simple nephrectomy CLIP,HEMOLOJUNE PEDERSENCK FDA Start: 02-09-2021 Robot-assisted simple nephrectomy CLIP,HEMOLOJUNE PEDERSENCK FDA Start: 02-09-2021 Robot-assisted simple nephrectomy CLIP,HEMOLOCK LG NUVIACK FDA Start: 02-09-2021 Robot-assisted simple nephrectomy 45mm Vascular Reload FDA Start: 02-09-2021 Robot-assisted simple nephrectomy CLIP,HEMOLOCK SIRENA PEDERSENCK FDA Start: 02-09-2021 Robot-assisted simple nephrectomy CLIP,HEMOLOCK LG NUVIACK FDA Start: 02-09-2021 Robot-assisted simple nephrectomy CLIP,HEMOLOCK SIRENA PEDERSENCK FDA Start: 02-09-2021 Robot-assisted simple nephrectomy CLIP,HEMOLOCK LG NUVIACK FDA Start: 02-09-2021 Robot-assisted simple nephrectomy 45mm Vascular Reload FDA Start: 02-09-2021 Robot-assisted simple nephrectomy CLIP,HEMOLOCK LG NUVIACK FDA Start: 02-09-2021 Robot-assisted simple nephrectomy CLIP,HEMOLOCK LG NUVIACK FDA Start: 02-09-2021 Robot-assisted simple nephrectomy CLIP,HEMOLOCK LG NUVIACK FDA Start: 02-09-2021 Robot-assisted simple nephrectomy CLIP,HEMOLOCK LG NUVIACK FDA Start: 02-09-2021 Robot-assisted simple nephrectomy 45mm Vascular Reload FDA Start: 02-09-2021 Robot-assisted simple nephrectomy CLIP,HEMOLOCK LG JOSE FDA Start: 02-09-2021 Robot-assisted simple nephrectomy CLIP,HEMOLOCK LG WECK FDA Start: 02-09-2021 Robot-assisted simple nephrectomy CLIP,HEMOLOCK LG WECK FDA Start: 02-09-2021 Robot-assisted simple nephrectomy CLIP,HEMOLOCK LG WECK FDA Start: 02-09-2021 Robot-assisted simple nephrectomy 45mm Vascular Reload FDA Start: 02-09-2021 Robot-assisted simple nephrectomy CLIP,HEMOLOCK LG WECK FDA Start: 02-09-2021 Robot-assisted simple nephrectomy CLIP,HEMOLOCK LG WECK FDA Start: 02-09-2021 Robot-assisted simple nephrectomy CLIP,HEMOLOCK LG WECK FDA Start: 02-09-2021 Robot-assisted simple nephrectomy CLIP,HEMOLOCK LG WECK FDA Start: 02-09-2021 Robot-assisted simple nephrectomy 45mm Vascular Reload FDA Start: 02-09-2021 Robot-assisted simple nephrectomy CLIP,HEMOLOCK LG NUVIACK FDA Start: 02-09-2021 Robot-assisted simple nephrectomy CLIP,HEMOLOCK LG WECK FDA Start: 02-09-2021 Robot-assisted simple nephrectomy CLIP,HEMOLOCK LG WECK FDA Start: 02-09-2021 Robot-assisted simple nephrectomy CLIP,HEMOLOCK LG NUVIACK FDA Start: 02-09-2021 Robot-assisted simple nephrectomy 45mm Vascular Reload FDA Start: 02-09-2021 Robot-assisted simple nephrectomy CLIP,HEMOLOCK LG NUVIACK FDA Start: 02-09-2021 Robot-assisted simple nephrectomy CLIP,HEMOLOCK LG NUVIACK FDA Start: 02-09-2021 Robot-assisted simple nephrectomy CLIP,HEMOLOCK LG WECK FDA Start: 02-09-2021 Robot-assisted simple nephrectomy CLIP,HEMOLOCK LG WECK FDA Start: 02-09-2021 Robot-assisted simple nephrectomy 45mm Vascular Reload FDA Start: 02-09-2021 Robot-assisted simple nephrectomy CLIP,HEMOLOCK LG NUVIACK FDA Start: 02-09-2021 Robot-assisted simple nephrectomy CLIP,HEMOLOCK LG WECK FDA Start: 02-09-2021 Robot-assisted simple nephrectomy CLIP,HEMOLOCK LG NUVIACK FDA Start: 02-09-2021 Robot-assisted simple nephrectomy CLIP,HEMOLOCK LG NUVIACK FDA Start: 02-09-2021 Robot-assisted simple nephrectomy 45mm Vascular Reload FDA Start: 02-09-2021 Robot-assisted simple nephrectomy CLIP,HEMOLOCK LG NUVIACK FDA Start: 02-09-2021 Robot-assisted simple nephrectomy CLIP,HEMOLOCK LG WECK FDA Start: 02-09-2021 Robot-assisted simple nephrectomy CLIP,HEMOLOCK LG WECK FDA Start: 02-09-2021 Robot-assisted simple nephrectomy CLIP,HEMOLOCK LG WECK FDA Start: 02-09-2021 Robot-assisted simple nephrectomy 45mm Vascular Reload FDA Start: 02-09-2021 Robot-assisted simple nephrectomy CLIP,HEMOLOCK LG NUVIACK FDA Start: 02-09-2021 Robot-assisted simple nephrectomy CLIP,HEMOLOCK LG NUVIACK FDA Start: 02-09-2021 Robot-assisted simple nephrectomy CLIP,HEMOLOCK LG NUVIACK FDA Start: 02-09-2021 Robot-assisted simple nephrectomy CLIP,HEMOLOCK LG NUVIACK FDA Start: 02-09-2021 Robot-assisted simple nephrectomy 45mm Vascular Reload FDA Start: 02-09-2021 Robot-assisted simple nephrectomy CLIP,HEMOLOCK LG NUVIACK FDA Start: 02-09-2021 Robot-assisted simple nephrectomy CLIP,HEMOLOCK LG NUVIACK FDA Start: 02-09-2021 Robot-assisted simple nephrectomy CLIP,HEMOLOCK LG NUVIACK FDA Start: 02-09-2021 Robot-assisted simple nephrectomy CLIP,HEMOLOCK LG NUVIACK FDA Start: 02-09-2021 Robot-assisted simple nephrectomy 45mm Vascular Reload FDA Start: 02-09-2021 Robot-assisted simple nephrectomy CLIP,HEMOLOCK LG NUVIACK FDA Start: 02-09-2021 Robot-assisted simple nephrectomy CLIP,HEMOLOCK LG NUVIACK FDA Start: 02-09-2021 Robot-assisted simple nephrectomy CLIP,HEMOLOCK LG NUVIACK FDA Start: 02-09-2021 Robot-assisted simple nephrectomy CLIP,HEMOLOCK LG NUVIACK FDA Start: 02-09-2021 Robot-assisted simple nephrectomy 45mm Vascular Reload FDA Start: 02-09-2021 Robot-assisted simple nephrectomy CLIP,HEMOLOCK LG JOSE FDA Start: 02-09-2021 Robot-assisted simple nephrectomy CLIP,HEMOLOCK LG NUVIACK FDA Start: 02-09-2021 Robot-assisted simple nephrectomy CLIP,HEMOLOCK LG WECK FDA Start: 02-09-2021 Robot-assisted simple nephrectomy CLIP,ELICIA GARCIA FDA Start: 02-09-2021 Robot-assisted simple nephrectomy 45mm Vascular Reload FDA Start: 02-09-2021 Robot-assisted simple nephrectomy CLIP,ELICIA GARCIA FDA Start: 02-09-2021 Robot-assisted simple nephrectomy CLIP,ELICIA GARCIA FDA Start: 02-09-2021 Robot-assisted simple nephrectomy CLIP,ELICIA GARCIA FDA Start: 02-09-2021 Robot-assisted simple nephrectomy CLIP,ELICIA GARCIA FDA Start: 02-09-2021 CLIP,ELICIA GARCIA FDA Start: 10-11-2021 CLIP,ELICIA GARCIA FDA Start: 10-11-2021 RELOAD, SR75 SELECTABLE FDA Start: 10-11-2021 RELOAD, SR75 SELECTABLE FDA Start: 10-11-2021 RELOAD, SR75 SELECTABLE FDA Start: 10-11-2021 RAIZA [id number] FDA Start: 10-11-2021 Ligation clip, synthetic polymer, non-bioabsorbable ([id number] FDA Start: 10-11-2021 CLIP,AIDEJUNE PACK JOSE FDA Start: 10-11-2021 CLIP,ELICIA GARCIA FDA Start: 10-11-2021 RELOAD, SR75 SELECTABLE FDA Start: 10-11-2021 RELOAD, SR75 SELECTABLE FDA Start: 10-11-2021 RELOAD, SR75 SELECTABLE FDA Start: 10-11-2021 [id number] FDA Start: 10-11-2021 CLIP,ELICIA GARCIA FDA Start: 10-11-2021 CLIP,ELICIA GARCIA FDA Start: 10-11-2021 RELOAD, SR75 SELECTABLE FDA Start: 10-11-2021 RELOAD, SR75 SELECTABLE FDA Start: 10-11-2021 RELOAD, SR75 SELECTABLE FDA Start: 10-11-2021 [id number] FDA Start: 10-11-2021 CLIP,AIDEJUNE SIRENA GARCIA FDA Start: 10-11-2021 CLIP,ELICIA GARCIA FDA Start: 10-11-2021 RELOAD, SR75 SELECTABLE FDA Start: 10-11-2021 RELOAD, SR75 SELECTABLE FDA Start: 10-11-2021 RELOAD, SR75 SELECTABLE FDA Start: 10-11-2021 STAPLER,TX60B FDA Start: 10-11-2021 CLIP,ELICIA NUVIA FDA Start: 10-11-2021 CLIP,HEMRAKEL NUVIA FDA Start: 10-11-2021 RELOAD, SR75 SELECTABLE FDA Start: 10-11-2021 RELOAD, SR75 SELECTABLE FDA Start: 10-11-2021 RELOAD, SR75 SELECTABLE FDA Start: 10-11-2021 [id number] FDA Start: 10-11-2021 CLIP,ELICIA NUVIA FDA Start: 10-11-2021 CLIP,ELICIA NUVIA FDA Start: 10-11-2021 RELOAD, SR75 SELECTABLE FDA Start: 10-11-2021 RELOAD, SR75 SELECTABLE FDA Start: 10-11-2021 RELOAD, SR75 SELECTABLE FDA Start: 10-11-2021 STAPLER,TX60B FDA Start: 10-11-2021 CLIP,ELICIA NUVIA FDA Start: 10-11-2021 CLIP,ELICIA PEDERSEN FDA Start: 10-11-2021 RELOAD, SR75 SELECTABLE FDA Start: 10-11-2021 RELOAD, SR75 SELECTABLE FDA Start: 10-11-2021 RELOAD, SR75 SELECTABLE FDA Start: 10-11-2021 [id number] FDA Start: 10-11-2021 CLIP,ELICIA NUVIA FDA Start: 10-11-2021 CLIP,ELICIA NUVIA FDA Start: 10-11-2021 RELOAD, SR75 SELECTABLE FDA Start: 10-11-2021 RELOAD, SR75 SELECTABLE FDA Start: 10-11-2021 RELOAD, SR75 SELECTABLE FDA Start: 10-11-2021 STAPLER,TX60B FDA Start: 10-11-2021 CLIP,ELICIA NUVIA FDA Start: 10-11-2021 CLIP,HEMRAKEL [facility] FDA Start: 10-11-2021 RELOAD, SR75 SELECTABLE FDA Start: 10-11-2021 RELOAD, SR75 SELECTABLE FDA Start: 10-11-2021 RELOAD, SR75 SELECTABLE FDA Start: 10-11-2021 [id number] FDA Start: 10-11-2021 CLIP,AIDEJUNE GARCIA FDA Start: 10-11-2021 CLIP,ELICIA PEDERSEN FDA Start: 10-11-2021 RELOAD, SR75 SELECTABLE FDA Start: 10-11-2021 RELOAD, SR75 SELECTABLE FDA Start: 10-11-2021 RELOAD, SR75 SELECTABLE FDA Start: 10-11-2021 [id number] FDA Start: 10-11-2021 CLIP,AIDEJUNE GARCIA FDA Start: 10-11-2021 CLIP,AIDEJUNE GARCIA FDA Start: 10-11-2021 RELOAD, SR75 SELECTABLE FDA Start: 10-11-2021 RELOAD, SR75 SELECTABLE FDA Start: 10-11-2021 RELOAD, SR75 SELECTABLE FDA Start: 10-11-2021 [id number] FDA Start: 10-11-2021 CLIP,ELICIA SIRENA GARCIA FDA Start: 10-11-2021 CLIP,AIDEJUNE SIRENA JOSE FDA Start: 10-11-2021 RELOAD, SR75 SELECTABLE FDA Start: 10-11-2021 RELOAD, SR75 SELECTABLE FDA Start: 10-11-2021 RELOAD, SR75 SELECTABLE FDA Start: 10-11-2021 [id number] FDA Start: 10-11-2021 CLIP,AIDEJUNE GARCIA FDA Start: 10-11-2021 CLIP,ELICIA SIRENA PEDERSEN FDA Start: 10-11-2021 RELOAD, SR75 SELECTABLE FDA Start: 10-11-2021 RELOAD, SR75 SELECTABLE FDA Start: 10-11-2021 RELOAD, SR75 SELECTABLE FDA Start: 10-11-2021 STAPLER,TX60B FDA Start: 10-11-2021 CLIP,AIDEJUNE GARCIA FDA Start: 10-11-2021 CLIP,AIDEJUNE NUVIA FDA Start: 10-11-2021 RELOAD, SR75 SELECTABLE FDA Start: 10-11-2021 RELOAD, SR75 SELECTABLE FDA Start: 10-11-2021 RELOAD, SR75 SELECTABLE FDA Start: 10-11-2021 JOSE ALANIZ FDA Start: 10-11-2021 Goals Date Patient Goal Desired Activity /State Functional Status Date Assessment Result Facility 10-13-2021 Functional status Ambulates [facility] Work Phone: 10-12-2021 Functional status Tolerates Activity Well [facility] Work Phone: Mental Status Date Assessment Result Facility 10-12-2021 Cognitive function Voice/Name [facility] Work Phone: 09-13-2021 Cognitive function Level Of Consciousness Drowsy [facility] Work Phone: 09-13-2021 Cognitive function Patient Orien tation Person;Place;Time [facility] Work Phone: Clinical Notes 05-04-2022 to 06-24-2024 Note Date & Type Note Facility 06-24-2024 Radiology Diagnostic study note [facility] Imaging Services [address] [place], [place] [id number] Abdomen/Pelvis WITH Contrast MR#: [id number] Acct: [id number] Name: ROMAN RODRIGUEZ Rep #: [id number] : [id number] F [id number] From: Uri Perdomo MD PCP: Dr. Nellie Rome MD Status: REG CLI Study:Abdomen/Pelvis WITH Contrast Date of Ex am: 06/23/24 Exam# [id number] Ordering Dr: Audrey Jones MD PROCEDURE: ABDOMEN/PELVIS WITH CONTRAST 06/23/2024 REASON FOR EXAM: MALIGNANT NEOPLASM OF R KIDNEY History of prior right nephrectomy. TECHNIQUE: Abdomen and pelvis CT with intravenous contrast. Coronal and Sagittal reconstruction series were provided. PATIENT PREPARATION: Per protocol ORAL CONTRAST TYPE: None. CONTRAST: Isovue-300 VOLUME: 93 mL One or more dose reduction techniques were used (e.g., Automated exposure control, adjustment of the mA and/or kV according to patient size, use of iterative reconstruction technique. RADIATION DOSE SUMMARY: CTDlvol: 15 mGy DLP: 1131.29 mGycm COMPARISON: Comparison is made with prior study dated May 18, 2023. FINDINGS: Lung bases: Unremarkable. No coronary artery calcification is seen. Liver: Diffuse fatty infiltration. Gallbladder: Surgically absent. Spleen: Pancreas: Normal size without evidence of mass surrounding inflammation or ductal dilation. Adrenals: Unremarkable. Kidneys: The patient is status post right nephrectomy. Bladder: Unremarkable. Reproductive Organs: Unremarkable. Bowel: Colonic diverticulosis without diverticulitis. Appendix: The appendix is not identified. There is no inflammatory process identified in the right lower quadrant to suggest appendicitis. Lymph nodes: Small benign-appearing retroperitoneal lymph nodes. These are unchanged. Vasculature: Mild diffuse atherosclerotic calcifications are noted. Peritoneum / Retroperitoneum: There is evidence of a central anterior lower anterior abdominal wall ventral hernia containing fat. Bones: Degenerative changes of the spine. Straightening of the normal lumbar lordosis. CT/Abdomen/Pelvis WITH Contrast IMPRESSION: Stable examination. No acute abnormality is seen. Reading Location: [place] [address] CC: Dr. Nellie Rome MD; Dr. Oswaldo Jones MD ~ Furniture And Bedding Inspector: Signed [facility] 05-28-2024 Evaluation note Diagnosis Onset Date Resolution Obesity chronic May 28 10:51am RADU (obstructive sleep apnea) chronic May 28, 2024 10:51am [facility] Work Phone: [phone]) 194-381002-23-2023 Discharge summary Author Gustavo Curiel [facility] May 04, 2022 1:21pm Note Date/Time May 04, 2022 1:21pm [facility] Physical Therapy [facility] [address] [place] [address]. [address] [place] [address] / REHABILITATION SERVICES DISCHARGE SUMMARY MR#: [id number] Acct: [id number] Name: ROMAN RODRIGUEZ Rep #: [id number] : 1955 66 From: Gustavo Curiel DPT, OCS, CSCS Referring Dr.: Dr. Nellie Rome MD Status: REG RCR Insurance: MEDICARE PART A B [facility] It has been my pleasure to treat ROMAN RODRIGUEZ referred by Dr. Nellie Rome MD, with the diagnosis of R knee OA for a total of 9 visit(s). Discharge Date: 05/04/22 Please see the following information for a summary of their discharge status. Subjective: Knee hurts occasionally but much better. Hurts up to 3/10 with certain activities like if she is on it alot. HEP going well daily. No activities need modified right now. Nothing scheduled with doctor. Specialist would be next option. R knee pain Pain Intensity (Out of 10): 0 LB Pain Intensity (Out of 10): 0 % Improvement: 60 Objective/Function: 130 R knee flexion adn 132 KL knee, just slight pain R. Walking well without antalgia today. Improved. Goal 1:: AROM symmetrtical without pain B knees flexion Goal Progress: Goal Met Goal 2:: I appropriate management of condtion of HEP for OA, include CV ex. Goal Progress: Goal Met Goal 3:: Pain 1/10 at worst and 75% improved. Goal Progress: Progressing Goal 4:: LEFS 50 Goal Progress: Not Progressing Plan: d/c, pt request. Discharge Comments: Pt doing HEP and will contact doctor if knee becomes a problem again. If there are questions or concerns regarding this patient's physical therapy, please feel free to call me at [phone]. Thank you for the referral of thispatient. Sincerely, Gustavo Curiel, LAZ, OCS, CSCS Balance/Gait/Functional tests - Balance/Special Test Scores Functional Gait Assessment Score: 27 % Disability: 10.0000 Lower Extremity Functional Score: 42 <Electronically signed by Gustavo Curiel DPT, OCS, CSCS> 05/04/22 1321 CC: Dr. Nellie Rome MD ~ EBG Signed [facility] Work Phone: Evaluation note* Diagnosis Onset Date Resolution Status BMI 39.0-39.9,adult acute Sleep apnea acute [facility] Work Phone: Evaluation note* Diagnosis Onset Date Resolution Status BMI 39.0-39.9,adult acute Sleep apnea acute Cholecystitis with cholelithiasis acute Epigastric abdominal pain ac [place] History of diverticulitis ac [place] History of renal disease acu te Lower abdominal pain acute Cholecystitis with cholelithiasis acute Epigastric abdominal pain ac [place] History of diverticulitis ac [place] Lower abdominal pain acute Stool bloody acute [facility] Work Phone: Evaluation note* Diagnosis Onset Date Resolution Status BMI 39.0-39.9,adult acute Sleep apnea acute Cholecystitis with cholelithiasis acute Epigastric abdominal pain ac [place] History of diverticulitis ac [place] History of renal disease acu te Lower abdominal pain acute Cholecystitis with cholelithiasis acute Epigastric abdominal pain ac [place] History of diverticulitis ac [place] Lower abdominal pain acute Stool bloody acute Cholecystitis with cholelithiasis acute Epigastric abdominal pain ac [place] Lower abdominal pain acute Mass of hepatic flexure of colon acute Stool bloody acute Cholecystitis with cholelithiasis acute Mass of hepatic flexure of colon acute [facility] Work Phone: Evaluation note* Diagnosis Onset Date Resolution Status Epigastric abdominal pain ac [place] History of diverticulitis ac [place] History of renal disease acu te Lower abdominal pain acute Cholecystitis with cholelithiasis resolved Epigastric abdominal pain ac [place] History of diverticulitis ac [place] Lower abdominal pain acute Stool bloody acute Cholecystitis with cholelithiasis resolved Epigastric abdominal pain ac [place] Lower abdominal pain acute Stool bloody acute Cholecystitis with cholelithiasis resolved Mass of hepatic flexure of colon resolved Cholecystitis with cholelithiasis resolved Mass of hepatic flexure of colon resolved Lipoma of colon acute Cholecystitis with cholelithiasis resolved [facility] Work Phone: Evaluation note* Diagnosis Onset Date Resolution Status Epigastric abdominal pain ac [place] Lower abdominal pain acute Stool bloody acute Cholecystitis with cholelithiasis resolved Mass of hepatic flexure of colon resolved Cholecystitis with cholelithiasis resolved Mass of hepatic flexure of colon resolved Lipoma of colon acute Cholecystitis with cholelithiasis resolved [facility] Work Phone: Evaluation note* Diagnosis Onset Date Resolution Status Obesity acute RADU (obstructive sleep apnea) acute [facility] Work Phone: Evaluation noteNo assessment information available [facility] Work Phone: Evaluation note* Diagnosis Onset Date Resolution Status Obesity chronic RADU (obstructive sleep apnea) chronic [facility] Work Phone: Reason for referral (narrative)No reason for [facility] Chief Complaint and Reason for Visit Chief Complaint Obstructive sleep ap medhat Reason for Visit BMI 39.0-39.9,adult Sleep apnea Chief Complaint Obstructive sleep ap medhat UPPER GI BLEED KIDNEY CA, ABD PAIN, CP (ORAL AND IV, COPY CEBUL) ABD PAIN, CP ABD PAIN, CP Reason for Visit BMI 39.0-39.9,adult Sleep apnea Cholecystitis with cholelithiasis Epigastric abdominal pain History of diverticulitis History of renal disease Lower abdominal pain Cholecystitis with cholelithiasis Epigastric abdominal pain History of diverticulitis Lower abdominal pain Stool bloody Chief Complaint Obstructive sleep ap medhat UPPER GI BLEED ABD PAIN, CP KIDNEY CA, ABD PAIN, CP (ORAL AND IV, COPY CEBUL) ABD PAIN, CP ABD PAIN, CP FU CSCOPE/US/CAT SCAN/EGD RT COLECTOMY, LAP JUANITA RT COLECTOMY, LAP JUANITA RT COLECTOMY, LAP JUANITA RT COLECTOMY, LAP JUANITA Reason for Visit BMI 39.0-39.9,adult Sleep apnea Cholecystitis with cholelithiasis Epigastric abdominal pain History of diverticulitis History of renal disease Lower abdominal pain Cholecystitis with cholelithiasis Epigastric abdominal pain History of diverticulitis Lower abdominal pain Stool bloody Cholecystitis with cholelithiasis Epigastric abdominal pain Lower abdominal pain Mass of hepatic flexure of colon Stool bloody Cholecystitis with cholelithiasis Mass of hepatic flexure of colon Chief Complaint UPPER GI BLEED ABD PAIN, CP KIDNEY CA, ABD PAIN, CP (ORAL AND IV, COPY CEBUL) ABD PAIN, CP ABD PAIN, CP FU CSCOPE/US/CAT SCAN/EGD RT COLECTOMY, LAP JUANITA RT COLECTOMY, LAP JUANITA RT COLECTOMY, LAP JUANITA RT COLECTOMY, LAP JUANITA RT COLECTOMY/LAB JUANITA 10/11 RC Reason for Visit Epigastric abdominal pain History of diverticulitis History of renal disease Lower abdominal pain Cholecystitis with cholelithiasis Epigastric abdominal pain History of diverticulitis Lower abdominal pain Stool bloody Cholecystitis with cholelithiasis Epigastric abdominal pain Lower abdominal pain Stool bloody Cholecystitis with cholelithiasis Mass of hepatic flexure of colon Cholecystitis with cholelithiasis Mass of hepatic flexure of colon Lipoma of colon Cholecystitis with cholelithiasis Chief Complaint FU CSCOPE/US/CAT SCA N/EGD RT COLECTOMY, LAP JUANITA RT COLECTOMY, LAP JUANITA RT COLECTOMY, LAP JUANITA RT COLECTOMY, LAP JUANITA RT COLECTOMY/LAB JUANITA 10/11 RC SLEEP APNEA; Reason for Visit Epigastric abdominal pain Lower abdominal pain Stool bloody Cholecystitis with cholelithiasis Mass of hepatic flexure of colon Cholecystitis with cholelithiasis Mass of hepatic flexure of colon Lipoma of colon Cholecystitis with cholelithiasis Chief Complaint SLEEP APNEA; 3 M FU R KNEE OSTEO RX HERE SCREENING Reason for Visit Obesity RADU (obstructive sleep apnea) Chief Complaint SLEEP APNEA; 3 M FU SCREENING R KNEE OSTEO RX HERE Reason for Visit Obesity RADU (obstructive sleep apnea) Chief Complaint SLEEP APNEA; 3 M FU SCREENING Malignant neoplasm of right kidney, except renal p R KNEE OSTEO RX HERE Reason for Visit Obesity RADU (obstructive sleep apnea) Chief Complaint MALIGNANT NEOPLASM O F KIDNEY Chief Complaint MALIGNANT NEOPLASM O F RIGHT KIDNEY Chief Complaint MALIGNANT NEOPLASM O F RIGHT KIDNEY 1 Y FU RADU; TR 05/31/23 APPROVED SCREENING Reason for Visit Obesity RADU (obstructive sleep apnea) Chief Complaint MALIGNANT NEOPLASM O F RIGHT KIDNEY 1 Y FU RADU; TR 05/31/23 APPROVED SCREENING HYPOXEMIA Reason for Visit Obesity RADU (obstructive sleep apnea) Chief Complaint Admit Date 1 Y FU May 28, 2024 10: 51am Malignant neoplasm of right kidney June 23, 2024 11:46am Reason for Visit Admit Date Obesity May 28, 2024 10: 51am RADU (obstructive sleep apnea) May 10:51am Family History No Family History Records Found Relationship Condition Age at Onset Recorded Date/T she mother Malignant neoplasm of colon Unknown Hypertension Unknown father Diabetes mellitus Unknown Advance Directives No Advanced Directives Records Found Advance Directive Response Recorded Date/ Time Living Will Yes February 09 4:39pm Power of Control Cabinet Assembler Yes February 09, 2021 4:39pm Advance Directive Response Recorded Date/ Time Name of Medical Power of Control Cabinet Assembler SPOUSE September 08, 2021 9:48am Living Will Yes September 08, 2021 9:48am Power of Control Cabinet Assembler Yes September 08 9:48am Advance Directive Response Recorded Date/ Time Name of Medical Power of Control Cabinet Assembler SPOUSE September 08, 2021 9:48am Name of Medical Power of Control Cabinet Assembler SPOUSE October 04, 2021 11:01am Living Will Yes October 04, 2021 11:01am Power of Control Cabinet Assembler Yes October 04 11:01am Advance Directive Response Recorded Date/ Time Name of Medical Power of Control Cabinet Assembler SPOUSE October 04, 2021 11:01am Living Will Yes October 04, 2021 11:01am Power of Control Cabinet Assembler Yes October 04 11:01am Advance Directive Response Recorded Date/ Time Living Will Yes October 04, 2021 10:01am Power of Control Cabinet Assembler Yes October 04 10:01am Advance Directive Response Recorded Date/ Time Living Will Yes October 04, 2021 11:01am Power of Control Cabinet Assembler Yes October 04 11:01am Advance Directive Response Recorded Date/ Time Living Will Yes October 04, 2021 11:01am Do you have a Healthcare Power of Control Cabinet Assembler? Yes October 04, 2021 11:01am Summary Purpose Additional Source Comments Goals (unrecognized section and content) Goals may be documented in a n alternate sectionGoals may be documented in an alternate sectionGoals may be documented in an alternate sectionGoals may be documented in an alternate sectionGoals may be documented in an alternate sectionGoals may be documented in an alternate sectionGoals may be documented in an alternate sectionGoals may be documented in an alternate sectionGoals may be documented in an alternate sectionGoals may be documented in an alternate sectionGoals may be documented in an alternate sectionGoals may be documented in an alternate section Care Teams (unrecognized sec tion and content) Team Status: Active Member Role Status Dates Dr. Nellie Rome MD Family Provider Active Dr. Nellie Rome MD Primary Care Provider Active Team Status: Inactive Member Role Status Dates Dr. Nellie Rome MD Primary Care Provider, [facility] Provider Active Dr. Giancarlo Zuluaga DO Attending Provider Active Team Status: Inactive Member Role Status Dates Dr. Nellie Rome MD Primary Care Provider Active Rani Clemons MIXER OPERATOR, MIXER OPERATOR-C Attending Provider, Referrin g Provider Active Team Status: Inactive Member Role Status Dates Dr. Nellie Rome MD Primary Care Provider, Attendin g Provider Active Team Status: Active Member Role Status Dates Dr. Nellie Rome MD Primary Care Prov ider, Attending Provider, Referring Provider Active Team Status: Active Member Role Status Dates Dr. Nellie Rome MD Primary Care Provider, Attendin g Provider Active Team Status: Inactive Member Role Status Dates Dr. Nellie Rome MD Primary Care Provider Active Dr. Oswaldo Jones MD Attending Provider, Referr ing Provider Active Team Status: Inactive Member Role Status Dates Dr. Nellie Rome MD Primary Care Prov ider, Attending Provider, Referring Provider Active Team Status: Inactive Member Role Status Dates Dr. Nellie Rome MD Primary Care Provider Active Dr. Giancarlo Zuluaga DO Attending Provider, Referring Pro vider Active Team Status: Active Member Role Status Dates Dr. Nellie Rome MD Primary Care Provider Active Team Status: Inactive Member Role Status Dates Dr. Nellie Rome MD Primary Care Provider Active Start: March 07, 2024 End: March 07, 2024 Dr. Nellie Rome MD Attending Provider Active Start: March 07, 2024 End: March 07, 2024 Dr. Nellie Rome MD Referring Provider Active Start: March 07, 2024 End: March 07, 2024 Team Status: Inactive Member Role Status Dates Dr. Nellie Rome MD Primary Care Provider Active Start: May 28, 2024 End: May 28, 2024 Dr. Nellie Rome MD Referring Provider Active Start: May 28, 2024 End: May 28, 2024 Rani Clemons MIXER OPERATOR, MIXER OPERATOR-C Attending Provider Active Start: May 28, 2024 End: May 28, 2024 Team Status: Inactive Member Role Status Dates Dr. Nellie Rome MD Primary Care Provider Active Start: June 23, 2024 End: June 23, 2024 Dr. Oswaldo Jones MD Attending Provider Active Start: June 23, 2024 End: June 23, 2024 Dr. Oswaldo Jones MD Referring Provider Active Start: June 23, 2024 End: June 23, 2024 INFORMATION SOURCE (unrecogn ized section and content) DATE CREATED AUTHOR 08/17/2024 [facility] FOR RECORDS PERTAINING TO PATIENTS WHO ARE OR HAVE BEEN ENROLLED IN A CHEMICAL DEPENDENCY/SUBSTANCEABUSE PROGRAM, SOME INFORMATION MAY BE OMITTED. This clinical summary was aggregated from multiple sources. Caution should be exercised in using it in the provision of clinical care. This summary normalizes information from multiple sources, and as a consequence, information in this document may materially change the coding, format and clinical context of patient data. In addition, data may be omitted in some cases. CLINICAL DECISIONS SHOULD BE BASED ON THE PRIMARY CLINICAL RECORDS. [email or web address] provides no warranty or guarantee of the accuracy or completeness of information in this document.
== END | disposition home or self-care (01) ==
LOC: OPBI 08:44
PROVIDERS: PCP Family Medicine; Referring Provider Family Medicine; Visit Provider Family Medicine
DX: Z12.31 Encounter for screening mammogram for malignant neoplasm of breast (principal)
CPT/HCPCS: 77063; 77067

== ENCOUNTER → 2024-08-29 | Outpatient (CLI) | payer MEDICARE, OTHER, SELFPAY ==
--- NOTE | 2024-08-29 13:57 | US_ITS ---
PROCEDURE: BREAST COMPLETE UNILATERAL 08/29/2024 REASON FOR EXAM: 69-year-old female presents for follow-up of the right breast findings seen on examination of 08/25/2024. No family history of breast cancer. TECHNIQUE: Targeted right breast ultrasound was performed. COMPARISON: Mammogram 08/25/2024 and 06/05/2023 FINDINGS: Complete right breast ultrasound was performed and of the right axillary region. Follow-up examination performed for the right breast mass seen on examination of 08/25/2024. On the present examination, there is an irregular hypoechoic mass with posterior shadowing in the retroareolar right breast measuring 2.2 x 2.1 x 1.7 cm. There is internal vascular flow. Also, there is a cyst versus dilated duct seen in the retroareolar 9 o'clock right breast, measuring 1.5 x 1.4 x 1.2 cm. There are additional dilated ducts in the retroareolar right breast. There are 3 prominent right axillary lymph nodes, 1 of which demonstrates focal cortical thickening. The right axillary lymph node that demonstrates focal cortical thickening measures 2.2 x 1.2 x 1.0 cm with cortical thickness up to 0.4 cm. US/Breast Complete Unilateral IMPRESSION: 1.Suspicious retroareolar right breast mass. Recommend tissue sampling with ul trasound-guided core needle biopsy. 2. Suspicious right axillary lymph node with focal cortical bulge. Recommend tissue sampling with ultrasound-guided core needle biopsy. Follow-up code: Ultrasound-guided core needle biopsy is recommended. BI-RADS 5: HIGHLY SUGGESTIVE OF MALIGNANCY Reading Location: [id number]
== END | disposition home or self-care (01) ==
LOC: OPUS 13:54
PROVIDERS: PCP Family Medicine; Referring Provider Family Medicine; Visit Provider Family Medicine
DX: N63.41 Unspecified lump in right breast, subareolar (principal)
CPT/HCPCS: 76641

== ENCOUNTER → 2024-09-15 | Outpatient (CLI) | payer MEDICARE, OTHER, SELFPAY | END | disposition home or self-care (01) | PROVIDERS: PCP Family Medicine; Referring Provider Surgery; Visit Provider Surgery | DX: D05.11 Intraductal carcinoma in situ of right breast (principal); R92.0 Mammographic microcalcification found on diagnostic imaging of breast; Z17.0 Estrogen receptor positive status [ER+]; Z17.21 Progesterone receptor positive status; R59.9 Enlarged lymph nodes, unspecified | CPT/HCPCS: 88305; 88341; 88342 ==

== ENCOUNTER 2024-10-07 09:58 | Day surgery (SDC) | payer MEDICARE, OTHER, SELFPAY ==
--- NOTE | 2024-10-02 14:18 | PAT.ANESEVAL ---
Pre-Assessment Diagnosis/Proposed Procedure Planned Operative Procedure(s): RIGHT BREAST STEROWIRE LOCALIZED LUMPECTOMY WITH SENTIEL LYMPH NODE BIOPSY, POSSIBLE NODE DISECTION Anesthesia History Anesthesia History - room attendant: Anesthesia History - room attendant Hx Hospitalization No 10/02/24 09:28 Any Problems With Anesthesia Yes: VERY SENSITIVE TO MEDS 10/02/24 09:28 , NAUSEA Cholinesterase deficiency No 10/02/24 09:28 You/Your Family Experience No 10/02/24 09:28 fever (hyperthermia) with Relationship Recent Exposure to Contagious No 10/11/21 06:05 Disease Does patient have nerve No 10/02/24 09:28 stimulator Patient instructed to have device shut off --Does patient have Pacemaker or ICD? When Was Last Pacemaker Check QUESTION #4 FULL TEXT: You/Your Family Experience fever (hyperthermia) with Anesthesia Last Oral Intake Last Oral intake: Last Oral Intake NPO since Meds taken in AM with sips of water? Meds patient instructed to take am of surgery PONV PONV - room attendant: PONV - room attendant Female Yes 10/02/24 09:28 HX of Motion Sickness Yes 10/02/24 09:28 HX of N/V After Surgery Yes 10/02/24 09:28 Non-Smoker Yes 10/02/24 09:28 Duration of Surgery greater Yes 10/02/24 09:28 than 60 minutes Number of Risk Factors 5 10/02/24 09:28 PONV Score Severe Risk 10/02/24 09:28 Height & Weight Height & Weight: Anesthesia: Height & Weight Height 5 ft 3 in 09/26/24 13:25 Respiratory Assessment Respiratory Assessment - room attendant: Respiratory Tract Infection Hx - room attendant Hx Respiratory Tract Infection No 10/02/24 09:28 STOP Sleep Apnea STOP Sleep Apnea - room attendant: STOP Sleep Apnea - room attendant Hx Hypertension Yes: CONTROLLED WITH MEDS 10/02/24 09:28 Hx Sleep Apnea Yes 10/02/24 09:28 CPAP Yes 10/02/24 09:28 BIPAP No 10/02/24 09:28 Do you snore loudly (louder than talking or can be heard Do you often feel tired/ fatigued/ sleepy during daytime? Has anyone observed you stop breathing during sleep? STOP Results Positive 10/02/24 09:28 QUESTION #5 FULL TEXT : Do you snore loudly (louder than talking or can be heard through closed doors)? 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 Specify any problems Hx of Preganancy in last 3 No 10/02/24 09:28 Months Nurse Filling Out Transfusion [id number] 10/02/24 09:28 & Questions: Date: 10/02/24 10/02/24 09:28 Time: 09:33 10/02/24 09:28 Patient unable to answer at this time (ie. confused, unrespo /Reproduction History /Reproductive History - room attendant: /Reproductive Hx- room attendant Hx Now Gestational Age (in weeks): EDC: Hx Hx Para Hx Section SAB No 10/04/21 11:01 [facility] Medical History (Updated 10/02/24 @ 09:40 by Daniel Longo) History of echocardiogram Fibromyalgia Abnormal ultrasound of breast Abnormal mammogram Mass Cancer Anemia Syncope Stool color black Stool bloody Gastric reflux Chest pain Abdominal pain Diverticulitis Wears glasses Anxiety Thyroid disease Arthritis History of renal disease Back pain History of diverticulitis Non-smoker CPAP (continuous positive airway pressure) dependence Shortness of breath on exertion History of pain when walking Nodular thyroid disease Hemorrhoids Sleep apnea Hypertension Home Medications ?Medication ?Instructions ?Recorded ?Last Taken ?Type omega-3 fatty acids 1,000 mg 2,000 mg PO QDAY SUPPLEMENT 06/26/17 02/08/21 History capsule (Fish Oil Concentrate) acetaminophen 325 mg tablet 650 mg PO Q4H PRN Pain 02/02/21 Unknown History (Tylenol) magnesium citrate 125 mg capsule 250 mg PO DAILY 05/23/23 Unknown History lisinopril 20 1 tab PO QDAY 05/28/24 Unknown History mg-hydrochlorothiazide 25 mg tablet cholecalciferol (vitamin D3) 25 25 mcg PO QDAY 09/26/24 Unknown History mcg (1,000 unit) capsule [id number] 8 mg-folic 400 1 tab PO QDAY 09/26/24 Unknown History mcg-K 50 mcg-lutein 300 mcg tablet (Multivitamin Women 50 Plus) Allergy/AdvReac Type Severity Reaction Status Date / Time acetazolamide (From Diamox AdvReac DEPRESSION Verified 10/01/24 13:47 Sequels) duloxetine (From Cymbalta) AdvReac DEPRESSION Verified 10/01/24 13:47 tetracycline AdvReac DEPRESSION Verified 10/01/24 13:47 Family History Mother Colon cancer Hypertension Father Diabetes Surgical History H/O lumpectomy History of cholecystectomy History of colectomy History of esophagogastroduodenoscopy (EGD) History of nephrectomy, right Hx of colonoscopy S/P thyroid biopsy history excision right breast lump Social History household members: spouse housing: house Smoking Status: Never smoker alcohol intake: never substance use type: does not use Audit: Pertinent Findings Pertinent Findings EKG Perinent findings: 09/08/2021 normal sinus rhythm with LAFB. Echo (EF%) pertinent findings: None found in chart Recommendation Anesthesia Recommendation Anesthesia recommendation: OPTIMIZED for anesthesia
[2024-10-07] VITALS (11 sets, daily range): BP systolic 118–143; BP diastolic 62–79; PULSE 58–71; RESP 12–20; TEMP 36.4–37.1; O2SAT 93–99; BMI 36.3
[2024-10-07] MEDS: Lactated Ringers 1,000 ML 15 ML IV (10:39)
--- NOTE | 2024-10-07 10:50 | NM_ITS ---
PROCEDURE: LYMPH NODE INJECTION ONLY 10/07/2024 REASON FOR EXAM: BREAST CANCER TECHNIQUE: LYMPH NODE INJECTION ONLY 564 uCi of Tilmanocept was injected subdermally at 1 cm above the right nipple for sentinel node imaging. RADIOPHARMACEUTICAL DOSE: 564 uCi COMPARISON: None FINDINGS: Subdermal injection of radiopharmaceutical for sentinel node imaging. NM/Lymph Node Injection Only IMPRESSION: Subdermal injection above the right nipple for sentinel node imaging. Reading Location: [id number]
--- NOTE | 2024-10-07 11:07 | PCM.PRE.AN2 ---
ASA Classification* ASA Classification ASA Classification: 3 Assessment & Plan Anesthesia* Anesthesia Assessment Anesthesia Assessment: Discussed sedation and/or anesthesia options, risks, benefits, and alternatives with patient/parents/legal guardian/POA. Questions invited. The patient/parents/legal guardian/POA seems to understand and agrees to proceed with anesthesia plan. Reviewed the physical assessment, medical history, allergy history and patient home medications list prior to surgery/procedure/anesthetic and documented any changes. Performed airway and anesthesia risk assessments. Anesthesia Type Anesthesia Type: General History Source History Obtained from:: Patient and Chart Anesthesia Focused Assessment* Temperature: 97.8 F Pulse Rate: 71 Blood Pressure: 143/69 Respiratory Rate: 12 Pulse Ox: 98 Oxygen Delivery Method: Room Air Airway Assessment Mouth opens: >3 cm Mallampati Score: IV Teeth Condition: Intact and Partial (Patient is missing 1 tooth. Rest of the teeth are tight.) Neck Range of motion (ROM): Full ROM Labs Anesthesia Preop lab: CBC WBC 7.0 K/mm3 (4.4-11.0) 11/13/23 10:53 11/13/23 RBC 4.68 M/mm3 (4.2-5.4) 11/13/23 10:53 11/13/23 Hgb 12.7 g/dL (12.0-15.0) 11/13/23 10:53 11/13/23 Hct 39.4 % (37-47) 11/13/23 10:53 11/13/23 Plt Count 354 K/mm3 (150-450) 11/13/23 10:53 11/13/23 CHEMISTRY Potassium 3.7 mmol/L (3.5-5.1) 02/19/24 13:17 02/19/24 Sodium 141 mmol/L (136-145) 02/19/24 13:17 02/19/24 Magnesium 2.0 mg/dL (1.6-2.6) 10/06/21 11:44 10/06/21 BUN 23 mg/dL (7-18) H 02/19/24 13:17 02/19/24 Creatinine 1.29 mg/dL (0.55-1.02) H 02/19/24 13:17 02/19/24 Glucose 121 mg/dL (74-106) H 02/19/24 13:17 02/19/24 POC Glucose 131 mg/dL (74-106) H 10/12/21 11:17 10/12/21 TSH 0.631 uIU/mL (0.358-3.740) 02/19/24 13:17 02/19/24 COAG PT 13.7 SECONDS (11.7-14.9) 10/06/21 11:44 10/06/21 Pre-Assessment Diagnosis/Proposed Procedure Planned Operative Procedure(s): RIGHT BREAST STEREOWIRE LOCALIZED LUMPECTOMY WITH SENTINEL LYMPH NODE BIOPSY, POSSIBLE NODE DISSECTION Anesthesia History Anesthesia History - supervisor cleaning and annealing: Anesthesia History - supervisor cleaning and annealing Hx Hospitalization No 10/02/24 09:28 Any Problems With Anesthesia Yes: VERY SENSITIVE TO MEDS 10/02/24 09:28 , NAUSEA Cholinesterase deficiency No 10/02/24 09:28 You/Your Family Experience No 10/02/24 09:28 fever (hyperthermia) with Relationship Recent Exposure to Contagious No 10/07/24 10:26 Disease Does patient have nerve No 10/02/24 09:28 stimulator Patient instructed to have device shut off --Does patient have Pacemaker No 10/07/24 10:26 or ICD? When Was Last Pacemaker Check QUESTION #4 FULL TEXT: You/Your Family Experience fever (hyperthermia) with Anesthesia Last Oral Intake Last Oral intake: Last Oral Intake NPO since 06:00 10/07/24 10:26 Meds taken in AM with sips of No 10/07/24 10:26 water? Meds patient instructed to take am of surgery Any additional information?: Yes NPO since: 06:00 (Patient had tea at 6 AM.) Meds taken in AM with sips of water?: No PONV PONV - supervisor cleaning and annealing: PONV - supervisor cleaning and annealing Female Yes 10/02/24 09:28 HX of Motion Sickness Yes 10/02/24 09:28 HX of N/V After Surgery Yes 10/02/24 09:28 Non-Smoker Yes 10/02/24 09:28 Duration of Surgery greater Yes 10/02/24 09:28 than 60 minutes Number of Risk Factors 5 10/02/24 09:28 PONV Score Severe Risk 10/02/24 09:28 Height & Weight Height & Weight: Anesthesia: Height & Weight Height 5 ft 3 in 10/07/24 10:26 Weight: 93 kg 10/07/24 10:26 Body Mass Index (BMI) 36.3 10/07/24 10:26 Respiratory Assessment Respiratory Assessment - supervisor cleaning and annealing: Respiratory Tract Infection Hx - supervisor cleaning and annealing Hx Respiratory Tract Infection No 10/02/24 09:28 STOP Sleep Apnea STOP Sleep Apnea - supervisor cleaning and annealing: STOP Sleep Apnea - supervisor cleaning and annealing Hx Hypertension Yes: CONTROLLED WITH MEDS 10/02/24 09:28 Hx Sleep Apnea Yes 10/02/24 09:28 CPAP Yes 10/02/24 09:28 BIPAP No 10/02/24 09:28 Do you snore loudly (louder than talking or can be heard Do you often feel tired/ fatigued/ sleepy during daytime? Has anyone observed you stop breathing during sleep? STOP Results Positive 10/02/24 09:28 QUESTION #5 FULL TEXT : Do you snore loudly (louder than talking or can be heard through closed doors)? 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 Specify any problems Hx of Preganancy in last 3 No 10/02/24 09:28 Months Nurse Filling Out Transfusion [id number] 10/02/24 09:28 & Questions: Date: 10/02/24 10/02/24 09:28 Time: 09:33 10/02/24 09:28 Patient unable to answer at this time (ie. confused, unrespo /Reproduction History /Reproductive History - supervisor cleaning and annealing: /Reproductive Hx- supervisor cleaning and annealing Hx Now Gestational Age (in weeks): EDC: Hx Hx Para Hx Section SAB No 10/04/21 11:01 Active Medications Active Medications: Current Medications Generic Name Dose Route Start Last Admin Trade Name Freq PRN Reason Stop Dose Admin Cefazolin Sodium 2 gm/ Sodium 110 mls @ 200 mls/hr 10/07/24 12:30 Chloride IV 10/07/24 13:02 INTRAOP ONE Lactated Ringer's 1,000 mls @ 15 mls/hr 10/07/24 10:30 IV .Q48H LAKISHA Lactated Ringer's 1,000 mls @ 15 mls/hr 10/07/24 10:30 10/07/24 10:39 IV 15 mls/hr .Q48H LAKISHA Administration PFSH Medical History History of echocardiogram Fibromyalgia Abnormal ultrasound of breast Abnormal mammogram Mass Cancer Anemia Syncope Stool color black Stool bloody Gastric reflux Chest pain Abdominal pain Diverticulitis Wears glasses Anxiety Thyroid disease Arthritis History of renal disease Back pain History of diverticulitis Non-smoker CPAP (continuous positive airway pressure) dependence Shortness of breath on exertion History of pain when walking Nodular thyroid disease Hemorrhoids Sleep apnea Hypertension Home Medications ?Medication ?Instructions ?Recorded ?Last Taken ?Type omega-3 fatty acids 1,000 mg 2,000 mg PO QDAY SUPPLEMENT 06/26/17 10/06/24 History capsule (Fish Oil Concentrate) acetaminophen 325 mg tablet 650 mg PO Q4H PRN Pain 02/02/21 Unknown History (Tylenol) magnesium citrate 125 mg capsule 250 mg PO DAILY 05/23/23 10/06/24 History lisinopril 20 1 tab PO QDAY 05/28/24 10/06/24 History mg-hydrochlorothiazide 25 mg tablet cholecalciferol (vitamin D3) 25 25 mcg PO QDAY 09/26/24 10/06/24 History mcg (1,000 unit) capsule [id number] 8 mg-folic 400 1 tab PO QDAY 09/26/24 10/06/24 History mcg-K 50 mcg-lutein 300 mcg tablet (Multivitamin Women 50 Plus) herbal sleep supplement 2 tab PO .nightly PRN sleep aid 10/07/24 10/06/24 History Allergy/AdvReac Type Severity Reaction Status Date / Time acetazolamide (From Diamox AdvReac DEPRESSION Verified 10/07/24 10:24 Sequels) duloxetine (From Cymbalta) AdvReac DEPRESSION Verified 10/07/24 10:24 tetracycline AdvReac DEPRESSION Verified 10/07/24 10:24 Family History Mother Colon cancer Hypertension Father Diabetes Surgical History H/O lumpectomy History of cholecystectomy History of colectomy History of esophagogastroduodenoscopy (EGD) History of nephrectomy, right Hx of colonoscopy S/P thyroid biopsy history excision right breast lump Social History household members: spouse housing: house Smoking Status: Never smoker alcohol intake: never substance use type: does not use Review of Systems (Anesthesia) ROS Narrative System reviewed and no additional complaints, except as documented.
--- NOTE | 2024-10-07 11:36 | BI_ITS ---
EXAM: BREAST BIOPSY SPECIMEN N/A CLINICAL HISTORY: F, Age 69 y/o , TECHNIQUE: BREAST BIOPSY SPECIMEN COMPARISON: Prior mammogram dated August 25, 2024. FINDINGS: TISSUE DENSITY: The breast tissue is extremely dense which lowers the sensitivity of mammography. Bilateral Breast Mammographic Findings: The specimen contains the localization wire as well as the tissue clip marker. BI/Breast Biopsy Specimen IMPRESSION: OVERALL FINAL ASSESSMENT: BIRADS 1 NEGATIVE. RECOMMENDATION: Appropriate action should be taken. A letter with findings and recommendations will be mailed to the patient. Reading Location: [id number]
--- NOTE | 2024-10-07 12:30 | BRBX_PTH ---
PATIENT: ROMAN RODRIGUEZ [place] [facility] [id number] AGE/SX: 69/F ROOM: RE10/07/[address]: Dr. Jeremiah Franco MD : 1955 BED: DIS: 10/07/2024 SPEC #: [id number] RECD: 10/07/24 14:24 STATUS: COLLEEN YELENA #: [id number] LILI: 10/07/24 12:[address]: Jeremiah Franco DEPT: SURGICAL PATHOLOGY RECD BY: Robert Hess ENTERED: 10/07/24 14:42 SP TYPE: BREAST BX OTHR DR: Dr. Nellie Rome MD Tissues: A - Right breast, NOS B - Lymph node, NOS C - Right breast, NOS D - Right breast, NOS E - Right breast, NOS F - Right breast, NOS Procedures: Frozen Section (charge) Immunohistochemical Stains Surgery Specimen Level IV Surgery Specimen Level V IHC Stain ADDITIONAL HEADER OPERATION: Stereo wire localization right lumpectomy, sentinel node, blue dye PRE-OP DIAGNOSIS: Invasive ductal carcinoma of breast TISSUE SUBMITTED: A- Right breast mass *long- lateral, short - superior*, B- Right breast sentinel node (blue, no count), C- Right axillary contents , D- Right breast new anterior margin , E- Right breast new superior margin, F- Right breast new lateral margin FROZEN SECTION DIAGNOSIS B. Right breast, sentinel lymph node, biopsy: Positive for macrometastasis. MS/mr 10/07/2024 MICROSCOPIC DIAGNOSIS A. Breast, right, mass, lumpectomy: - Invasive ductal carcinoma, Grade 3 (tubule 3, nuclear 3, mitosis 3), pT2a pN2a. - DCIS (ductal carcinoma in situ), extensive, high nuclear grade with comedo necrosis. - Lateral and anterior margins positive for DCIS. - Lateral margin < 1 mm to invasive ductal carcinoma. B. Breast, right, lymph node, sentinel, excision: - Positive for macrometastasis, 12 mm (03/12). C. Axilla, right, contents, excision: - Three of 5 lymph nodes positive for metastasis (3/5). - Extranodal tumor extension, 8 mm. D. Breast, right, new anterior, margin, excision: - DCIS (ductal carcinoma in situ) with comedo necrosis, 1 mm from the new surgical margin. E. Breast, right, new superior, margin, excision: - DCIS (ductal carcinoma in situ) less than 1 mm from the new surgical margin. F. Breast, right, new lateral, margin, excision: - Negative for in situ and invasive carcinoma. - Fibrocystic mastopathy. SYNOPTIC REPORT FOR INVASIVE BREAST CARCINOMA Specimen (P=partial, M=mastectomy):?P Laterality (R=right, L=left):?R Focality (U=unifocal, M=multifocal):?U Tumor size (cm):?2.9 cm Histologic type:?invasive ductal carcinoma, NST Histologic grade:?3 ??? Tubule score (1-3):?3 ??? Nuclear score (1-3):?3 ??? Mitotic score (1-3):?3 Skin, nipple epidermis, skeletal muscle (I=involved, N=negative, Not applicable):?N Lymphovascular invasion (E=extensive, F=focal, N=not identified):?N Margins of main specimen (P=positive, N=negative):?N for invasive carcinoma Distance to closest margin of main specimen (mm):?< 1 mm Designation of closest margin of main specimen:?lateral Designation of other margins of main specimen </=1 mm:?NA Re-resection margin status (P=positive, N=negative, NA=not applicable):?N ? DCIS (P=present, N=not identified):?P ?? Nuclear grade:?high ?? Comedo necrosis (P=present, N=not identified):?P ?? Extensive intraductal component (P=present, N=not identified):?P ?? Margins of main specimen (P=positive, N=negative):?P ?? Distance to closest margin of main specimen (mm):?involving/at ?? Designation of closest margin of main specimen:?lateral and anterior ?? Designation of other margins of main specimen </=2 mm:?posterior ?? Longest span </= 2 mm to margin of main specimen (mm):?7 mm ?? Re-resection margin status (P=positive, N=negative, NA=not applicable):?N (< 1 mm) ? Regional lymph nodes: ?? Total number of lymph nodes:?6 ?? Number of sentinel lymph nodes:?1 ?? Number with macrometastases:?4 ?? Number with micrometastases:?0 ?? Number with isolated tumor cells:?0 ?? Size of largest meche metastasis (mm):?12 mm ?? Size of extranodal extension (mm) (N=not identified):?8 mm ? Estrogen receptor:?positive (95%, strong intensity) Progesterone receptor:?positive (60%, intermediate intensity) HER2 IHC:?negative (1+) HER2 FISH:?NA Ki67: 40% Specimen in which ER/PA/HER2 performed:?[id number] A pTNM:?pT2 pN2a Additional findings:?fibrocystic mastopathy Comment:?A radiograph of the breast specimen was performed to assist in the sectioning of the specimen and the image was reviewed and correlated with the histological findings. ? The above synoptic report complies, in slightly modified form, with the guidelines of the [employer] and the Association of Directors of Anatomic and Surgical Pathology for the reporting of cancer specimens MICROSCOPIC DESCRIPTION Slides are reviewed. IHCs utilized in the assessment include CK5/6, p40, Ecadherin, ER, PA, HER2, Ki67q, CD31, SMA. All matched controls reacted appropriately. These tests were developed and their performance characteristics determined by [facility]. They may not have been cleared or approved by the U.S. Food and Drug Administration. The FDA has determined that such clearance or approval is not necessary.? The above immunohistochemical/dualISH?markers are reviewed by the Pathologist. GROSS DESCRIPTION A. A. Received fresh labeled with the patient's name and date of . Designated as right breast mass is a 10.4 x 8.7 x 3.3 cm lumpectomy with an exposed localization wire on the medial aspect. There is a short suture designated as superior and a long suture designated as lateral. Skin is present, 3.5 x 1.2 cm. The specimen is inked as follows: Superior: RedInferior: BlueLateral: OrangeAnterior: GreenPosterior: Black The specimen is serially sectioned from lateral to medial (into 8 slices) revealing a 2.9 x 2.4 x 2.4 cm mass involving the anterior aspect of the lateral margin, spanning slices #2-#5. A biopsy clip is not identified within the mass. The mass is located the following distances from each margin: Anterior: AtInferior: >2.0 cmMedial: >2.0 cmLateral: < 0.1 cmPosterior: >2.0Superior: 0.5 cm Ground Transportation Operator sections are submitted, sequentially from slice #1 to #8, as follows: A1: Slice #1, lateral margin, perpendicularA2: Slice #2, mass to lateral marginA3: Slice #3, mass to anterior/lateral marginsA4: Slice #4, mass to anteriorA5: Slice #4, mass to superior/lateralA6: Slice #5 mass to superior/anterior marginsA7: Slice #5, inferior/posterior marginsA8: Slice #8, skin at medial, perpendicular Cold ischemic time: 25 minutes Formalin fixation time: 28 hours, 50 minutes B. Received fresh for frozen section diagnosis labeled with the patient's name and date of . Designated as right breast sentinel node, blue, no count is a 1.7 x 1.3 x 1.2 cm firm, lennon-white, grossly positive lymph node with attached soft tissue. Blue dye is present. The lymph node is serially sectioned and entirely submitted for frozen section diagnosis and subsequently placed in cassettes B1-B2 for permanent sections. The remaining fat is submitted in cassette B3. C. Received in 4 formalin containers labeled with the patient's name and date of . Designated as: Axillary contents-right is a 6.5 x 5.0 x 1.4 cm aggregate of lennon-yellow adipose tissue. Sectioning reveals 5 lymph nodes ranging from 1.1 x 0.8 x 0.5 cm to 3.5 x 2.8 x 1.4 cm. There are 4 grossly positive lymph nodes, the largest of which measures 2.8 x 1.5 x 1.3 cm. Ground Transportation Operator sections are submitted as follows: C1: Grossly positive lymph node, trisected, entirely submittedC2: Grossly positive lymph node, trisected, entirely submittedC3: Grossly positive lymph node, serially sectioned, representativeC4: Grossly positive lymph node, largest, serially section, representativeC5-C10: Largest lymph node, fatty, serially sectioned, entirely submitted D. Right breast new anterior margin is a 6.0 x 4.7 x 1.4 cm focally disrupted portion of lennon-yellow adipose tissue, devoid of orientation. The external surfaces are inked green. Sectioning reveals lennon-yellow lobulated cut surfaces, and a 0.3 x 0.3 x 0.3 cm lennon-white well-circumscribed nodule located 0.3 cm from the inked external surface. No additional lesions are identified. Ground Transportation Operator sections are submitted in 4 cassettes, to include the nodule in cassette D1. E. Right breast new superior margin is a 6.3 x 4.9 x 2.8 cm portion of elnnon-yellow adipose tissue, devoid of orientation. The external surfaces are inked red. Sectioning reveals lennon-yellow, lobulated cut surfaces with patchy blue dye discoloration throughout. No lesions are grossly identified. Ground Transportation Operator sections are submitted in 4 cassettes. F. Right breast new lateral margin is a 6.0 x 5.7 x 2.0 cm portion of lennon-yellow adipose tissue, devoid of orientation. The external surfaces are inked orange. Sectioning reveals lennon-yellow, focally cystic, lobulated cut surfaces. No lesions are grossly identified. Ground Transportation Operator sections are submitted in 6 cassettes. IA 10/08/2024 CPT:[id number]
--- NOTE | 2024-10-07 12:51 | PCM.HP.STD ---
HPI - General General Date of Admission: 10/07/24 Date of Service: 10/07/24 Chief Complaint: RIGHT BREAST CANCER HPI Narrative ROMAN RODRIGUEZ, is a 69 F who presents for lumpectomy and SLN biopsy for invasive breast [facility] Medical History History of echocardiogram Fibromyalgia Abnormal ultrasound of breast Abnormal mammogram Mass Cancer Anemia Syncope Stool color black Stool bloody Gastric reflux Chest pain Abdominal pain Diverticulitis Wears glasses Anxiety Thyroid disease Arthritis History of renal disease Back pain History of diverticulitis Non-smoker CPAP (continuous positive airway pressure) dependence Shortness of breath on exertion History of pain when walking Nodular thyroid disease Hemorrhoids Sleep apnea Hypertension Home Medications ?Medication ?Instructions ?Recorded ?Last Taken ?Type omega-3 fatty acids 1,000 mg 2,000 mg PO QDAY SUPPLEMENT 06/26/17 10/06/24 History capsule (Fish Oil Concentrate) acetaminophen 325 mg tablet 650 mg PO Q4H PRN Pain 02/02/21 Unknown History (Tylenol) magnesium citrate 125 mg capsule 250 mg PO DAILY 05/23/23 10/06/24 History lisinopril 20 1 tab PO QDAY 05/28/24 10/06/24 History mg-hydrochlorothiazide 25 mg tablet cholecalciferol (vitamin D3) 25 25 mcg PO QDAY 09/26/24 10/06/24 History mcg (1,000 unit) capsule uogqoyuc-jwpo-djqm 8 mg-folic 400 1 tab PO QDAY 09/26/24 10/06/24 History mcg-K 50 mcg-lutein 300 mcg tablet (Multivitamin Women 50 Plus) herbal sleep supplement 2 tab PO .nightly PRN sleep aid 10/07/24 10/06/24 History Allergy/AdvReac Type Severity Reaction Status Date / Time acetazolamide (From Diamox AdvReac DEPRESSION Verified 10/07/24 10:24 Sequels) duloxetine (From Cymbalta) AdvReac DEPRESSION Verified 10/07/24 10:24 tetracycline AdvReac DEPRESSION Verified 10/07/24 10:24 Family History Mother Colon cancer Hypertension Father Diabetes Surgical History H/O lumpectomy History of cholecystectomy History of colectomy History of esophagogastroduodenoscopy (EGD) History of nephrectomy, right Hx of colonoscopy S/P thyroid biopsy history excision right breast lump Social History household members: spouse housing: house Smoking Status: Never smoker alcohol intake: never substance use type: does not use Vital Signs Vital Signs Vital Signs: 10/07/24 10:26 10/07/24 10:26 10/07/24 11:20 Temperature 97.8 F 97.8 F Temperature Source Temporal Pulse Rate 71 71 Respiratory Rate 12 12 Respiratory Pattern Normal Blood Pressure 143/69 H 143/69 H Blood Pressure Mean 93 Blood Pressure Source Monitor Blood Pressure Position Semi-Fowlers Blood Pressure Location Left Arm Pulse Ox 98 98 Oxygen Delivery Method Room Air Room Air Weight Weight: 205 lb 0.478 oz Body Mass Index (BMI) 36.3 Physical Exam Const alert, oriented x3 and no apparent distress Results Imaging Radiology Impression [place] Node 10/07/24 10:50 IMPRESSION: Subdermal injection above the right nipple for sentinel node imaging. Reading Location: [id number] Assessment & Plan Assessment/Plan (1) Invasive ductal carcinoma of breast: PLAN: Plan right breast lumpectomy abd SLN bx today
[2024-10-07] MEDS: Bupiv/Epi 0.25% 30 ML Vial (15:19)
--- NOTE | 2024-10-07 15:37 | EX.PCM.DISCH ---
Discharge Instructions Diet Discharge Diet: Light diet - advance as tolerated Activity Discharge Activity: Return to Normal Activity and May Shower May shower in (days): 2 Ice area for (Minutes): 30 Dressing / Incision Call your doctor if your incision/area has: Continuous Slow Oozing, Sudden Increased Bleeding, Increased Pain/ Swelling, Increased Redness, Foul Smelling Discharge and Swelling at the incision site Call your doctor if you observe: Fever of 101 or Higher Cleanse incision/area with: Soap & Water Additional Dressing/Incision Instructions:: Wear postop bra for comfort and support; empty and record TANVIR drain daily Follow Up Care Please Follow Up With: Jeremiah Franco MD When: 1 week. Please call office to schedule appointment Test Results: Test results from this visit will be discussed in further detail at your follow-up appointment, if applicable. Discharge Plan Admission Primary Reason for Your Visit: Right breast lumpectomy Attending Provider: Jeremiah Franco Primary Care Provider: Nellie Rome Instructions Print Language: Armenian Discharge Orders/Prescriptions Prescriptions: New oxycodone 5 mg capsule 5 mg PO Q8H PRN (Reason: pain) 4 Days Qty: 10 0RF Continued omega-3 fatty acids [Fish Oil Concentrate] 1,000 mg capsule 2,000 mg PO QDAY magnesium citrate 125 mg capsule 250 mg PO DAILY lisinopril-hydrochlorothiazide 20-25 mg tablet 1 tab PO QDAY cholecalciferol (vitamin D3) 25 mcg (1,000 unit) capsule 25 mcg PO QDAY Multivitamin Women 50 Plus 8 mg iron-400 mcg-50 mcg tablet 1 tab PO QDAY acetaminophen [Tylenol] 325 mg Tablet 650 mg PO Q4H PRN (Reason: Pain) herbal sleep supplement 2 tab PO .nightly PRN (Reason: sleep aid) Referrals / Follow Up: Nellie Rome MD [Primary Care Provider] - Disposition Disposition (needs filled in before D/C Order can be placed): Home, Self Care
--- NOTE | 2024-10-07 15:53 | PCM.POST.ANE ---
Anesthesia: Postop Eval I Current Vital Signs Temperature: 97.7 F Pulse Rate: 63 Blood Pressure: 143/71 Respiratory Rate: 20 Pulse Ox: 95 Oxygen Delivery Method: Room Air Assessment Airway patent: Yes Spontaneous unlabored respirations: Yes Mental status: Awake and Calm nausea: No Vomiting: No Anesthesia Complication: No Fluid Hydration Crystalloid volume administer (ml): 1,600 Total IV fluid infused: 1,600 Progress Note Anesthesia document: Postop Eval 1 completed: Yes
--- NOTE | 2024-10-07 19:24 | PCM.OPRPT ---
Problems Associated Problem List Diagnoses (1) Invasive ductal carcinoma of breast: Procedures Integumentary [id number]: 40055 Perq dev breast 1st [facility] Operative Report (Standard) Operative Information Date of Procedure: 10/07/24 Pre-Operative Diagnosis: Right breast invasive ductal carcinoma Post-Operative Diagnosis: Same Surgery/Procedure Performed: Right breast stereotactic needle localization torsion spring coiling machine setter: No Type of Anesthesia: Local RN Documented Start/Stop Times: Operation Date: 10/07/24 12:30 Case Time Into Pre-Op 10/07/24 10:20 Anesthesia Start 10/07/24 13:01 Into Room 10/07/24 13:01 Out of Pre-Op 10/07/24 13:01 Procedure Start 10/07/24 13:32 Procedure End 10/07/24 15:42 Anesthesia End 10/07/24 15:47 Out of Room 10/07/24 15:47 Into Recovery 10/07/24 15:50 Out of Recovery 10/07/24 17:02 Into Phase II Recovery 10/07/24 17:03 Out of Phase II 10/07/24 18:45 Procedure Start Time: 12:15 Procedure Stop Time: 12:30 Select all DRAINS/GRAFTS/IMPLANTS that apply: Prosthetic device Prosthetic device details: Localization wire Estimated Blood Loss: 0 Specimen collected: No Description of surgery: The patient is a 69-year-old female recently discovered to have right breast invasive ductal carcinoma. We discussed lumpectomy versus mastectomy and she decided to pursue a lumpectomy. In order to perform the lumpectomy a stereotactic wire placement was recommended. We discussed the details of the planned procedure and she wished to proceed. She was brought to the mammography suite today. The patient was then laid prone on the stereotactic table. The right breast was suspended through the aperture and the table. The breast was then placed in compression. Multiple views were taken of the breast in order to locate the clip and the lesion. Once this was performed the coordinates were entered. The skin of the breast was prepped and draped in the usual manner. Local anesthetic was infiltrated. The needle and wired were inserted to the desired depth. Multiple images were obtained to confirm good positioning of the wire. Once this was in place the wire was held in place while the needle was retracted. The wire was then trimmed. The patient tolerated this well. Post wire placement mammograms were performed and showed good positioning. Dressing was applied and the patient was returned to preoperative area in preparation for surgery Surgical Findings: See procedure note Complications Complications: No Admit VTE Documentation VTE Present on Admission: No VTE Mechan Device Prophylaxis: None VTE Pharm Prophylaxis ordered?: No Reason prophylaxis not ordered: Treatment Not Indicated
--- NOTE | 2024-10-07 19:37 | PCM.OPRPT ---
Oncology: [place] Requirements . Oncology surgical intervention performed: Axillary Lymph Node Dissection for Breast Cancer performed Axillary Lymph - Breast Cancer: Synoptic Portion: Element Response Options Operation performed with curative intent. Yes Resection was performed within the boundaries of the axillary vein, chest wall (serratus anterior), and latissimus dorsi. Yes Nerves identified and preserved during dissection (select all that apply) Long thoracic nerve; Thoracodorsal nerve; Branches of the intercostobrachial nerves; Level III nodes were removed. Yes [place] Node Biopsy for Breast Cancer performed [place] Node Bx - Breast Cancer: Synoptic Portion: Element Response Options Operation performed with curative intent. Yes Tracer(s) used to identify sentinel nodes in the upfront surgery (non-neoadjuvant) setting (select all that apply). Dye; Radioactive tracer Tracer(s) used to identify sentinel nodes in the neoadjuvant setting (select all that apply).N/A.] All nodes (colored or non-colored) present at the end of a dye-filled lymphatic channel were removed. Yes All significantly radioactive nodes were removed. N/A Lymphoseek did not work All palpably suspicious nodes were removed. [Yes Biopsy-proven positive nodes marked with clips prior to chemotherapy were identified and remove N/A.] Multi Select Codes Integumentary Integumentary CPT Codes: 21826 Partial mastectomy Respiratory/Cardiovascular Resp/Cardiovascular CPT Codes: 64488 Biopsy/removal lymph nodes Operative Report (Standard) Operative Information Date of Procedure: 10/07/24 Pre-Operative Diagnosis: Right breast invasive ductal cancer Post-Operative Diagnosis: Same Surgery/Procedure Performed: 1. Wire localized right breast lumpectomy 2. Right axillary sentinel lymph node biopsy 3. Right axillary node dissection refinery operator alkylation: Yes [employer]: Deepak Tran Tasks completed by assistant professor of life sciences: Closing and Retracting Additional traffic assistant?: No Type of Anesthesia: General RN Documented Start/Stop Times: Operation Date: 10/07/24 12:30 Case Time Into Pre-Op 10/07/24 10:20 Anesthesia Start 10/07/24 13:01 Into Room 10/07/24 13:01 Out of Pre-Op 10/07/24 13:01 Procedure Start 10/07/24 13:32 Procedure End 10/07/24 15:42 Anesthesia End 10/07/24 15:47 Out of Room 10/07/24 15:47 Into Recovery 10/07/24 15:50 Out of Recovery 10/07/24 17:02 Into Phase II Recovery 10/07/24 17:03 Out of Phase II 10/07/24 18:45 Procedure Start Time: 13:32 Procedure Stop Time: 15:42 Select all DRAINS/GRAFTS/IMPLANTS that apply: None Estimated Blood Loss: 40 mL Specimen collected: Yes Description of specimen(s) removed: 1. Right breast lumpectomy 2. Right axillary sentinel lymph node x 1 3. Right axillary contents 4. New anterior margin 5. New lateral margin 6. New superior margin Description of surgery: The patient is a 69-year-old female recently discovered to have right breast cancer. We discussed her surgical options of lumpectomy with radiation versus mastectomy. She opted for the lumpectomy. We did discuss in the office that obtaining margins may be difficult given her mass behind the nipple in the central aspect of the breast. We discussed the details of the planned procedure including the risks benefits and alternatives. She wished to proceed. Earlier in the day she underwent injection of Lymphoseek for the sentinel lymph node mapping as well as placement of a stereotactic localization wire. Patient was then brought to the operating room today following informed consent. She is placed supine on the operative table with arms outstretched and arm boards. A general anesthesia was induced. The blue dye was injected into the right periareolar area and massaged into the breast for several minutes. The breast and axilla were then prepped and draped in the usual sterile manner. An ellipse incision was made around the entry point of the wire. Local anesthetic was injected prior to making the incision. Bovie electrocautery was then used to dissect down through subcutaneous tissues following the path of the wire as our guide. This did require a very generous lumpectomy based on the location of the mass in the central portion of the breast as well as the fact that the mass was greater than 2 cm in size. Once the lumpectomy specimen was removed, it was oriented such that a long stitch farias the lateral aspect and a short stitch farias the superior aspect. The specimen was then sent to pathology for gross examination for margins. In the meantime hemostasis was achieved using electrocautery. The margins were found to be close or at least at the margin and the anterior, lateral, and superior margins. These 3 margins were reexcised and sent to pathology separately. These were sent for permanent analysis. The right axilla incision was then made using #15 blade. Local anesthetic was injected prior to the incision. Bovie electrocautery was then used dissect down through subtendinous tissues. The axillary fat was encountered. Neoprobe was utilized. Unfortunately there were no significant counts in the axilla despite being positive at the breast. Blue dye was utilized to dissect out a sentinel lymph node. This was fairly sizable clearly blue but unfortunately this clinically seemed positive as it was quite hard. Frozen section of this lymph node did indeed proved to be positive. There were also several similar palpable lymph nodes that seem clinically positive as well. These were all removed and a full axillary dissection was carried out. Hemostasis was excellent. Each incision was then closed using 3-0 Vicryl and 4-0 Vicryl. A 10 flat TANVIR drain was inserted into the breast as this ended up being a very sizable lumpectomy. She was awakened from anesthesia and taken to recovery in good condition. The dressings utilized included skin glue, silver Mepilex, fluffs and a postoperative bra. Surgical Findings: See operative note Complications Complications: No Admit VTE Documentation VTE Present on Admission: No VTE Mechan Device Prophylaxis: SCD's VTE Pharm Prophylaxis ordered?: No Reason prophylaxis not ordered: Treatment Not Indicated
--- NOTE | 2024-10-07 20:27 | POSTOPAN2_ITS ---
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 Spontaneous unlabored Yes 10/07/24 15:54 [email or web address] [email or web address] respirations Mental status Awake,Calm 10/07/24 15:54 [email or web address] nausea No 10/07/24 15:54 [email or web address] [email or web address] Vomiting No 10/07/24 15:54 [email or web address] Anesthesia Postop Eval I: Fluid Summary Crystalloid volume administer 1,600 10/07/24 15:54 [email or web address] (ml) Colloids volume administered ( ml) Blood Product volume administered (ml) Total IV fluid infused 1,600 10/07/24 15:54 [email or web address] [email or web address] Anesthesia Postop Eval I: Summary Notes Anesthesia Complication No 10/07/24 15:54 [email or web address] Anesthesia Complication Comment: Post-operative progress note Anesthesia: Postop Eval II Evaluation Mental status: Awake and Calm Pain Level: 2 nausea: No Vomiting: No Complications Anesthesia Complication: No
--- NOTE | 2024-10-07 20:27 | PCM.POSTANE2 ---
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 [email or web address] respirations Mental status Awake,Calm 10/07/24 15:54 [email or web address] nausea No 10/07/24 15:54 [email or web address] [email or web address] Vomiting No 10/07/24 15:54 [email or web address] Anesthesia Postop Eval I: Fluid Summary Crystalloid volume administer 1,600 10/07/24 15:54 [email or web address] (ml) Colloids volume administered ( ml) Blood Product volume administered (ml) Total IV fluid infused 1,600 10/07/24 15:54 [email or web address] Anesthesia Postop Eval I: Summary Notes Anesthesia Complication No 10/07/24 15:54 [email or web address] Anesthesia Complication Comment: Post-operative progress note Anesthesia: Postop Eval II Evaluation Mental status: Awake and Calm Pain Level: 2 nausea: No Vomiting: No Complications Anesthesia Complication: No
== END 2024-10-07 18:49 | disposition home or self-care (01) ==
LOC: SDC 09:59 → AC 09:59
PROVIDERS: PCP Family Medicine; Referring Provider Surgery; Visit Provider Surgery
PROC: 0HBV0ZZ Excision of Bilateral Breast, Open Approach (ICD-10-PCS; CPT 19302; principal; 2024-10-07 12:15)
DX: C50.111 Malignant neoplasm of central portion of right female breast (principal); C77.3 Secondary and unspecified malignant neoplasm of axilla and upper limb lymph nodes; Z17.0 Estrogen receptor positive status [ER+]; I10 Essential (primary) hypertension; Z90.5 Acquired absence of kidney; Z90.49 Acquired absence of other specified parts of digestive tract; Z79.899 Other long term (current) drug therapy
CPT/HCPCS: 19301; 38525; 19283; 00404; 19281; 38792; 76098; 88305; 88307; 88331; 88341; 88342; A9520; J2405; Q9968

== ENCOUNTER → 2024-10-20 | Outpatient (CLI) | payer MEDICARE, OTHER, SELFPAY ==
[2024-10-20 10:20] LABS: Hematocrit 40.5 % (37-47); Hemoglobin 14.1 g/dL (12.0-15.0); Immature Granulocytes Count 0.050 X10^3/uL (0.0-0.0); Mean Corp Hgb Conc 34.8 g/dL (32-36); Mean Corpuscular Volume 81.2 fL (81-99); Mean Platelet Vol. 9.5 fl (6.2-12.0); NRBC Flagged by Analyzer 0 % (0-5); Platelet Count 374 K/mm3 (150-450); RBC Distribution Width CV 13.8 % (11.6-14.6); RBC Distribution Width SD 40.5 fl (35.1-43.9); Red Blood Count 4.99 M/mm3 (4.2-5.4); White Blood Count 12.6 K/mm3 (4.4-11.0)
[2024-10-20 10:55] LABS: AST(SGOT) 18 U/L (<=31); Alanine Aminotransfer ALT/SGPT 14 U/L (<=34); Albumin, Serum 4.1 g/dL (3.4-4.8); Alkaline Phosphatase 61 U/L (35-104); Anion Gap 12 (5-15); BUN 16 mg/dL (4-19); BUN/Creat Ratio 17.8 RATIO (10-20); Calcium,Total 9.3 mg/dL (7.6-11.0); Carbon Dioxide 24.4 mmol/L (21.0-32.0); Chloride 93 mmol/L (98-108); Globulin 2.6 g/dL (2.2-4.2); Glucose 118 mg/dL (70-99); Potassium 3.7 mmol/L (3.3-5.1)
== END | disposition home or self-care (01) ==
PROVIDERS: PCP Family Medicine; Referring Provider Family Medicine; Visit Provider Family Medicine
DX: N18.31 Chronic kidney disease, stage 3a (principal); R11.10 Vomiting, unspecified
CPT/HCPCS: 36415; 80053; 85025

== ENCOUNTER → 2024-11-21 | Outpatient (CLI) | payer MEDICARE, OTHER, SELFPAY ==
--- NOTE | 2024-11-21 06:24 | CT_ITS ---
PROCEDURE: CT CHEST, ABD, PEL W/CONTRAST 11/21/2024 REASON FOR EXAM: STAGING BREAST CANCER IV CONTRAST ONLY TECHNIQUE: Chest, abdomen and pelvis CT with intravenous contrast. Coronal and Sagittal reconstruction series were provided. One or more dose reduction techniques were used (e.g., Automated exposure control, adjustment of the mA and/or kV according to patient size, use of iterative reconstruction technique. PATIENT PREPARATION: Per protocol CONTRAST: Isovue 370 VOLUME: 96mL 20 gauge IV RADIATION DOSE SUMMARY: CTDlvol: 18.86 mGy DLP: 1885.0 mGycm COMPARISON: None. FINDINGS: CT CHEST: Hardware: None. Mediastinum and lymph nodes: Left thyroid goiter. No mediastinal lymphadenopathy. No axillary lymphadenopathy Heart and Vasculature: No aortic aneurysm. Atherosclerotic calcifications. Lungs and Airways: Clear. The airways are patent. Pleura: No pleural effusion. No pneumothorax. Bones: No acute bony abnormalities. Soft tissues: Inversion of the right breast nipple and soft tissue thickening can be consistent with known breast cancer. CT ABDOMEN/PELVIS: Liver: Unremarkable. Gallbladder: The gallbladder is likely surgically absent. Spleen: Unremarkable. Pancreas: Unremarkable. Adrenals: Unremarkable. Kidneys: The right kidney is surgically resected. No left hydronephrosis. No nephrolithiasis. Bladder: Unremarkable. Reproductive Organs: Unremarkable. Bowel: Surgical sutures of the right colon. Extensive sigmoid colon diverticulosis with no evidence of acute diverticulitis. No bowel wall thickening. Appendix: No evidence of acute appendicitis. Lymph nodes: Small retroperitoneal lymph nodes with the largest is left para- aortic measuring 1.3 x 0.8 mm. Vasculature: Vascular atherosclerotic calcifications. Peritoneum / Retroperitoneum: No free air or free fluid. Bones: Multilevel degenerate changes of the lumbar spine. No acute or pathologic bony abnormalities. CT/CT Chest, Abd, Pel w/Contrast IMPRESSION: No change in small retroperitoneal lymph nodes compared to CT abdomen and pelvi s 06/23/2024. Otherwise, no evidence of metastatic disease in the chest, abdomen and pelvis. Reading Location: [facility]
--- OUTSIDE RECORDS SUMMARY | 2024-11-21 06:25 | XMS RPT_ITS | CCD ---
Author Organization 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 Nellie Rome Primary Care Provider [phone] Dr. Nellie Rome Referring Provider [phone] Kaci SHED BOSSVINI Attending Provider George, Dr. Alex Barker Attending Provider [phone] Cekaylin, Dr. Alex Barker Referring Provider George, Dr. Alex Barker Other Provider Dr. Pan Jimenez Attending Provider Cebuadriana, Dr. Alex Barker Referring Provider Cekaylin, Dr. Alex Barker Admit Provider Dr. Nellie Rome Primary Care Provider Dr. Nellie Rome Referring Provider [phone] ITALIA Perez Attending Provider Dr. Nellie Rome Primary Care Provider Dr. Nellie Rome Referring Provider [phone] Alex Vazquez Attending Provider George, Dr. Alex Barker Referring Provider Cekaylin, Dr. Alex Barker Other Provider Dr. Nellie Rome Primary Care Provider Dr. Nellie Rome Referring Provider [phone] Giancarlo Zuluaga Attending Provider Dr. Nellie Rome Primary Care Provider Dr. Nellie Rome Referring Provider Dr. Giancarlo Zuluaga Attending Provider Latricia UMAÑA, Dr. Ballard Primary Care Provider Latricia UMAÑA, Dr. Ballard Attending Provider Latricia UMAÑA, Dr. Ballard Referring Provider Kaci ANAYA-C, Rani Attending Provider Karen UMAÑA, Dr. Oswaldo Elise Attending Provider [phone] Karen UMAÑA, Dr. Oswaldo Elise Referring Provider Latricia UMAÑA, Dr. Ballard Primary Care Provider Latricia UMAÑA, Dr. Ballard Referring Provider Latricia UMAÑA, Dr. Ballard Attending Provider Salvador UMAÑA, Dr. Jeremiah Hawley Attending Provider Salvador UMAÑA, Dr. Jeremiah Hawley Referring Provider Latricia UMAÑA, Dr. Ballard Primary Care Provider Latricia UMAÑA, Dr. Ballard Referring Provider Salvador UMAÑA, Dr. Jeremiah Hawley Other Provider Latricia UMAÑA, Dr. Ballard Primary Care Provider Dr. Harrison Schneider MD Attending Provider Dr. Marcos Givens DO Attending Provider Wyatt UMAÑA, Dr. Terry Referring Provider Nellie Rome Referring Unavailable Nellie Rome Primary Care Unavailable Nellie Rome Attending Unavailable Nellie Rome Referring Unavailable Mitom, Nellie Primary Care Unavailable Kaci ANAYA, Rani Attending Unavailable Nellie Rome Referring Unavailable Miedel, Nisswa Attending Unavailable Mied, [place] Primary Care Unavailable [facility], [place] Primary Care Unavailable Miedel, [place] Referring Unavailable Miedel, [place] Attending Unavailable KarenOswaldo Referring Unavailable KarenOswaldo Attending Unavailable Miedel, [place] Primary Care Unavailable Miedel, [place] Referring Unavailable Miedel, [place] Primary Care Unavailable Miedel, [place] Attending Unavailable Miedel, [place] Primary Care Unavailable Jeremiah Franco Attending Unavailable Jeremiah Franco Referring Unavailable Jeremiah Franco Attending Unavailable Mied, [place] Primary Care Unavailable Jeremiah Franco Referring Unavailable Miedel, [place] Primary Care Unavailable KarenOswaldo Attending Unavailable Mied, [place] Primary Care Unavailable Miedel, [place] Referring Unavailable Mied, [place] Attending Unavailable Marcos Givens [facility]ending [facility] Isckarus, Mansour Referring Unavailable Mied, [place] Primary Care Unavailable Isckarus, Mansour Referring Unavailable Isckarus, Hiraour Attending Unavailable IsckarusHiraour Attending Unavailable Isckarus, Mansour Referring Unavailable [facility], [place] Primary Care Unavailable [facility], [place] Primary Care Unavailable [facility] [place] Referring Unavailable Jeremiah Franco Attending Unavailable Mied, [place] Referring Unavailable Marcos Givens Attending Unavailable [facility] Unavailable Jeremiah Fracno Referring Unavailable Isckarus, Hiraour Attending Unavailable Mied, [place] Primary Care Unavailable Miedel, [place] Referring Unavailable Jeremiah Franco Attending Unavailable [facility] [place] Referring Unavailable Mied, [place] Primary Care Unavailable Jeremiah Franco Attending Unavailable [facility], [place] Primary Care Unavailable Jeremiah Franco Attending Unavailable Jeremiah Franco Consulting Unavailable Jeremiah Franco Referring Unavailable Jeremiah Franco Attending Unavailable [facility] [place] [facility] [place] Referring Unavailable Mied, [place] Primary Care Unavailable Mied, [place] Referring Unavailable Wanek, Jeremiah A Attending Unavailable Allergies Allergy Classification Reported Allergen(s) Allergy Type Date of Onset Reaction(s) Facility (20 sources) acetaZOLAMIDE Drug Allergy 07-04-2021 DEPRESSION [facility] (20 sources) DULoxetine Drug Allergy 07-04-2021 DEPRESSION [facility] (20 sources) Tetracycline Drug Allergy 07-04-2021 [facility] (1 source) acetaZOLAMIDE Drug Allergy 11-17-2024 [facility] (1 source) DULoxetine Drug Allergy 11-17-2024 [facility] (1 source) Tetracycline Drug Allergy 11-17-2024 [facility] Medications Current Medications Medication Drug Class(es) Dates Sig (Normalized) Sig (Original) acetaminophen 325 mg oral tablet (20 sources) Start: 02-02-2021 take 2 tablets by mouth every four hours as needed for pain Acetaminophen (Tylenol) 325 mg Tablet Active 650 mg PO Q4H as needed for Pain February 02, 2021 1:00am cholecalciferol 0.025 mg oral capsule (20 sources) Vitamin D Start: 09-26-2024 take 1 capsule by mouth once daily Cholecalciferol (Vitamin D3) 25 mcg (1,000 unit) capsule Active 25 ug PO daily September 26, 2024 12:00am Start: 02-02-2021 End: 05-23-2023 take 1 tablet by mouth once daily Cholecalciferol (Vitamin D3) (Vitamin D3) 125 mcg (5,000 unit) Tablet Discontinued 125 ug PO DAILY February 02, 2021 1:00am May 23, 2023 10:39am SUPPLEMENT lisinopril 20 mg oral tablet (2 sources) Angiotensin Converting Enzyme Inhibitor Start: 11-11-2024 take 1 tablet by mouth once daily Lisinopril 20 mg tablet Active 20 mg PO daily November 11, 2024 12:00am magnesium citrate 125 mg oral capsule (16 sources) Start: 05-23-2023 take 2 capsules by mouth once daily Magnesium Citrate 125 mg capsule Active 250 mg PO DAILY May 23, 2023 12:00am Start: 05-23-2023 take 250 mg by mouth once paolo y Magnesium Citrate Active 250 MG PO DAILY May 23, 2023 12:00am Wqytobvb-Vuw-Esqp-Fa-Vit K-Lut (Multivitamin Women 50 Plus) 8 mg iron-400 mcg-50 mcg tablet (8 sources) Start: 09-26-2024 take 1 tablet by mouth once daily Gdeprtzs-Dzs-Iawo-Fa-Vit K-Lut (Multivitamin Women 50 Plus) 8 mg iron-400 mcg-50 mcg tablet Active 1 {tbl} PO daily September 26, 2024 12:00am nystatin [id number] unt/ml oral suspension (6 sources) Polyene Antifungal Start: 10-14-2024 End: 11-11-2024 Nystatin 100,000 unit/mL suspension Active 1 mL PO THREE TIMES A DAY November 11, 2024 11:42am Candidiasis of mouth Candidal stomatitis swish (30 seconds) & swallow [place]-3 Fatty Acids (Fish Oil Concentrate) 1,000 mg capsule (20 sources) Start: 06-26-2017 [place]-3 Fatty Acids (Fish Oil Concentrate) 1,000 mg capsule Active 2000 mg PO daily June 26, 2017 12:00am SUPPLEMENT Start: 06-26-2017 [place]-3 Fatty Acids (Fish Oil Concentrate) 1,000 mg capsule Active 2000 mg PO daily June 26, 2017 12:00am Start: 06-26-2017 [place]-3 Fatty Acids (Fish Oil Concentrate) 1,000 mg capsule Active 2000 MG PO daily June 25, 2017 11:00pm Start: 06-26-2017 [place]-3 Fatty Acids (Fish Oil Concentrate) 1,000 mg capsule Active 2000 MG PO daily June 26, 2017 12:00am Completed/Discontinued Medications Medication Drug Class(es) Dates Sig (Normalized) Sig (Original) acetaminophen 325 mg / oxyCODONE hydrochloride 5 mg oral tablet (20 sources) Opioid Agonist Start: 02-09-2021 End: 07-04-2021 Oxycodone-Acetamino phen 5-325 mg tablet Discontinued 1 {tbl} PO Q4H as needed for pain February 09, 2021 July 04, 2021 11:15am History of kidney disease Personal history of other diseases of urinary system Start: 02-09-2021 End: 07-04-2021 take 1 tablet by mouth every four hours Oxycodone-Acetaminophen Discontinued 1 TABLET PO Q4H 28 09February 09, 2021 July 04, 2021 11:15am docusate sodium 100 mg oral capsule (20 sources) Start: 02-09-2021 End: 07-04-2021 take 1 capsule by mouth twice daily Docusate Sodium (Colace) 100 mg capsule Discontinued 100 mg PO TWICE A DAY 20 0 February 09, 2021 1:00am July 04, 2021 11:15am ferrous sulfate 325 mg oral tablet (20 sources) Start: 02-23-2022 End: 05-23-2023 take 1 tablet by mouth every other day Ferrous Sulfate 325 mg (65 mg iron) tablet Discontinued 325 mg PO every other day February 23, 2022 1:00am May 23, 2023 10:39am herbal sleep supplement (6 sources) Start: 10-07-2024 End: 11-11-2024 herbal sleep supplement Discontinued 2 {tbl} PO .nightly as needed for sleep aid October 07, 2024 12:00am November 11, 2024 11:40am Start: 10-07-2024 herbal sleep s upplement Active 2 {tbl} PO .nightly as needed for sleep aid October 07, 2024 12:00am hydroCHLOROthiazide 25 mg / lisinopril 20 mg oral tablet (20 sources) Thiazide Diuretic, Angiotensin Converting Enzyme Inhibitor Start: 05-28-2024 End: 11-11-2024 Lisinopril-Hydrochlorothiazi de 20-25 mg tablet Discontinued 1 {tbl} PO daily May 28, 2024 12:00am November 11, 2024 11:42am Start: 02-02-2021 End: 05-23-2023 Lisinopril-Hydrochlorothiazi de 20-25 mg Tablet Discontinued 1 {tbl} PO DAILY February 02, 2021 1:00am May 23, 2023 10:39am BP Start: 02-02-2021 End: 05-23-2023 take 1 tablet by mouth once daily Lisinopril-Hydrochlorothiazide Discontin ued 1 TABLET PO DAILY February 02, 2021 1:00am May 23, 2023 10:39am Citlalli Santana (20 sources) Start: 02-02-2021 End: 07-04-2021 Citlalli Santana Discontinued 1 NMA SL/PO DAILY February 02, 2021 1:00am July 04, 2021 11:15am SUPPLEMENT Start: 02-02-2021 End: 07-04-2021 Citlalli Santana Discontinued 1 NMA SL/PO DAILY February 02, 2021 1:00am July 04, 2021 11:15am Start: 02-02-2021 End: 07-04-2021 take 1 capsule by mouth once daily Citlalli Max Discontinued 1 CAP SL/PO DAILY February 02, 2021 12:00am July 04, 2021 10:15am Start: 02-02-2021 End: 07-04-2021 take 1 capsule by mouth once daily Citlalli Max Discontinued 1 CAP SL/PO DAILY February 02, 2021 1:00am July 04, 2021 11:15am Magnesium (20 sources) Start: 07-04-2021 End: 02-23-2022 Magnesium 250 mg tablet Disc ontinued 400 mg PO DAILY July 04, 2021 12:00am February 23, 2022 12:14pm SUPPLEMENT Start: 07-04-2021 End: 02-23-2022 Magnesium 250 mg [...] 04, 2021 10:59am October 13, 2021 7:19am PREP Take 2 tabs at 1:00, 3:00, and 11:00 on the day before surgery neomycin sulfate 500 mg oral tablet (20 sources) Aminoglycoside Antibacterial Start: 09-22-2021 End: 10-13-2021 take 2 tablets by mouth once daily Neomycin 500 mg tablet Discontinued 500 mg PO As Directed October 04, 2021 10:59am October 13, 2021 7:19am PREP Take 2 tabs at 1:00, 3:00, and 11:00 on the day before surgery omeprazole 40 mg delayed release oral capsule (20 sources) Proton Pump Inhibitor Start: 09-08-2021 End: 02-23-2022 Omeprazole 40 mg Capsule,Delayed Release(Dr/Ec) Discontinued 20 mg PO TWICE A DAY September 08, 2021 12:00am February 23, 2022 12:14pm GERD Start: 09-08-2021 End: 02-23-2022 take 20 mg by mouth twice daily Omeprazole Discontinued 20 MG PO TWICE A DAY September 08, 2021 12:00am February 23, 2022 12:14pm Start: 09-08-2021 take 40 mg by mouth once daily Omeprazole Active 40 MG PO DAILY September 08, 2021 12:00am oxyCODONE hydrochloride 5 mg oral capsule (6 sources) Opioid Agonist Start: 10-07-2024 End: 10-14-2024 take 1 capsule by mouth every eight hours as needed for pain Oxycodone 5 mg capsule Discontinued 5 mg PO Q8H as needed for pain 10 4 0 October 07, 2024 October 14, 2024 2:07pm Infiltrating ductal carcinoma of breast Malignant neoplasm of unspecified site of unspecified female breast Problems Active Problems Problem Classification Problem Date Documented Da te Episodic/Chronic Abdominal pain (20 sources) Epigastric pain; Translations: [Epigastric pain] Episodic Biliary tract disease (20 sources) Biliary calculus; Translations: [Calculus of gallbladder with chronic cholecystitis without obstruction] Episodic Cancer of breast (20 sources) Infiltrating duct carcinoma of breast; Translations: [Malignant neoplasm of unspecified site of unspecified female breast] Onset: 11-11-2024 09-26-2024 Chronic Cancer of kidney and renal pelvis (4 sources) Malignant tumor of kidney; Translations: [Malignant neoplasm of unspecified kidney, except renal pelvis] Onset: 05-13-2024 11-11-2024 Chronic Comment on above: Status post right ra dical nephrectomy 2020 Chronic kidney disease (1 source) Chronic kidney disease; Translations: [Chronic kidney disease, stage 3a] Onset: 10-23-2024 Diverticulosis and diverticulitis (20 sources) Diverticulitis of intestine; Translations: [Diverticulitis of intestine, part unspecified, without perforation or abscess without bleeding] 01-06-2021 Chronic Gastrointestinal hemorrhage (20 sources) Hematochezia; Translations: [Melena] Episodic Genitourinary symptoms and ill-defined conditions (20 sources) H/O: kidney disease; Translations: [Personal history of other diseases of urinary system] Episodic Comment on above: KIDNEY MASS Mycoses (5 sources) Candidiasis of mouth; Translations: [Candidal stomatitis] Onset: 11-11-2024 10-14-2024 Episodic Nonmalignant breast conditions (1 source) Unspecified lump in the right breast, unspecified quadrant; Translations: [Unspecified lump in the right breast, unspecified quadrant] Onset: 09-19-2024 Episodic Nonspecific chest pain (20 sources) Chest pain; Translations: [Chest pain, unspecified] 09-07-2021 Episodic Other and unspecified benign neoplasm (2 sources) Benign neoplasm of colon; Translations: [Benign lipomatous neoplasm of intra-abdominal organs] Episodic Other and unspecified benign neoplasm (20 sources) Benign lipomatous neoplasm of intra-abdominal organs; Translations: [Lipoma of intra-abdominal organs] Episodic Other diseases of kidney and ureters (20 sources) Renal mass; Translations: [Other specified disorders of kidney and ureter] 01-06-2021 Chronic Other gastrointestinal disorders (20 sources) History of diverticulitis; Translations: [Personal history of other diseases of the digestive system] 09-07-2021 Episodic Other gastrointestinal disorders (8 sources) Personal history of other diseases of the digestive system; Translations: [Personal history of unspecified digestive disease] Episodic Other gastrointestinal disorders (8 sources) Mass of colon; Translations: [Other specified diseases of intestine] 10-21-2021 Episodic Other gastrointestinal disorders (20 sources) Other specified diseases of intestine; Translations: [Other specified disorders of intestine] Episodic Other nutritional; endocrine; and metabolic disorders (20 sources) Body mass index 30+ - obesity; Translations: [Body mass index (BMI) 39.0-39.9, adult] 07-04-2021 Chronic Other nutritional; endocrine; and metabolic disorders (4 sources) Body mass index (BMI) 39.0-39.9, adult; Translations: [Body Mass Index 39.0-39.9, adult] Chronic Other nutritional; endocrine; and metabolic disorders (20 sources) Obesity; Translations: [Obesity, unspecified] 02-23-2022 Chronic [...] conditions (not mental disorders or infectious disease) (20 sources) Ultrasonography of breast abnormal; Translations: [Other abnormal and inconclusive findings on diagnostic imaging of breast] Onset: 08-28-2024 09-15-2024 Episodic Residual codes; unclassified (20 sources) Sleep apnea; Translations: [Sleep apnea, unspecified] 07-04-2021 Chronic Residual codes; unclassified (4 sources) Sleep apnea, unspecified; Translations: [Unspecified sleep apnea] Chronic Residual codes; unclassified (20 sources) Obstructive sleep apnea syndrome; Translations: [Obstructive sleep apnea (adult) (pediatric)] 02-23-2022 Chronic Comment on above: CPAP 8 cmH2O Residual codes; unclassified (8 sources) Obstructive sleep apnea (adult) (pediatric); Translations: [Obstructive sleep apnea (adult)(pediatric)] Onset: 05-28-2024 02-23-2022 Chronic Residual codes; unclassified (11 sources) Other specified postprocedural states; Translations: [Status post right breast lumpectomy] 10-14-2024 Episodic Secondary malignancies (4 sources) Regional lymph node metastasis present ; Translations: [Secondary and unspecified malignant neoplasm of lymph node, unspecified] 11-11-2024 Chronic Secondary malignancies (1 source) Secondary and unspecified malignant neoplasm of lymph node, unspecified; Translations: [Secondary and unspecified malignant neoplasm of lymph node, unspecified] Onset: 11-11-2024 Chronic Thyroid disorders (20 sources) Thyroid nodule; Translations: [Nontoxic single thyroid nodule] 06-26-2017 Chronic Unclassified (9 sources) Infiltrating ductal carcinoma of breast Unclassified (18 sources) C50.919 - Malignant neoplasm of unspecified site of unspecified female breast Unclassified (1 source) Obesity, class 3; Translations: [Obesity, class 3] Onset: 05-28-2024 Past or Other Problems Problem Classification Problem Date Documented Da te Episodic/Chronic Unclassified (20 sources) history excision right breast lump 10-10-2021 Results Test Name Value Interpretation Reference Range Facility Radiation Oncology Visiton 0 11-17-2024 Radiation Oncology Visit [facility] [address] [place] [address] OFFICE VISIT Date of Service: 11/17/24 1100 MR#: [id number] Acct: [id number] Name: NORI RODRIGUEZ Rep #: [id number] : 1955 From: Marcos Givens DO Age/Sex: 69/F Location: [facility] Status: Signed Intake Vital Signs 10/30/24 10:08 11/11/24 11:46 11/17/24 11:08 Height 5 ft 3 in 5 ft 3 in 5 ft 3 in Weight: 205 lb 4 oz 206 lb BMI 36.3 36.5 BP 145/78 H 147/82 H Blood Pressure Location Lt brachial Lt brachial Position Sitting Sitting Respiration 16 16 Pulse 59 L 54 L Pulse Source Monitor Monitor Temp 96.7 F L 97.9 F Temperature Source Temporal Artery Temporal Artery Pulse Oximetry (%) 97 97 Oxygen Delivery Method room air room air Intake Is patient in pain?: No Allergies acetazolamide (From Diamox Sequels) Adverse Reaction (Verified 11/17/24 11:07) DEPRESSION duloxetine (From Cymbalta) Adverse Reaction (Verified 11/17/24 11:07) DEPRESSION tetracycline Adverse Reaction (Verified 11/17/24 11:07) DEPRESSION Medications ???Medication ???Instructions ???Recorded ???Confirmed ???Type omega-3 fatty acids 1,000 mg 2,000 mg PO QDAY SUPPLEMENT 11/17/24 History capsule (Fish Oil Concentrate) acetaminophen 325 mg tablet 650 mg PO Q4H PRN Pain 02/02/21 History (Tylenol) magnesium citrate 125 mg capsule 250 mg PO DAILY 05/23/23 11/17/24 History cholecalciferol (vitamin D3) 25 25 mcg PO QDAY 09/26/24 11/17/24 H istory mcg (1,000 unit) capsule kqyumsne-ycqh-gykr 8 mg-folic 400 1 tab PO QDAY 09/26/24 11/17/24 H istory mcg-K 50 mcg-lutein 300 mcg tablet (Multivitamin Women 50 Plus) lisinopril 20 mg tablet 20 mg PO QDAY 11/11/24 11/17/24 Hi story nystatin 100,000 unit/mL oral 1 ml PO TID 11/11/24 11/17/24 Hist ory suspension Have you fallen in the past year?: No Central Venous Access Central Venous Access: No PFSH PFSH Medical History Regional lymph node metastasis present Cancer of kidney Thyroid nodule Oral thrush History of echocardiogram Fibromyalgia Abnormal ultrasound of breast Abnormal mammogram Mass Cancer Anemia Syncope Stool color black Stool bloody Gastric reflux Chest pain Abdominal pain Diverticulitis Wears glasses Anxiety Thyroid disease Arthritis Back pain History of diverticulitis Non-smoker CPAP (continuous positive airway pressure) dependence Shortness of breath on exertion History of pain when walking Nodular thyroid disease Hemorrhoids Sleep apnea Hypertension Home Medications ???Medication ???Instructions ???Recorded ???Last Taken ???Type omega-3 fatty acids 1,000 mg 2,000 mg PO QDAY SUPPLEMENT 10/06/24 History capsule (Fish Oil Concentrate) acetaminophen 325 mg tablet 650 mg PO Q4H PRN Pain 02/02/21 Un known History (Tylenol) magnesium citrate 125 mg capsule 250 mg PO DAILY 05/23/23 10/06/24 History cholecalciferol (vitamin D3) 25 25 mcg PO QDAY 09/26/24 10/06/24 H istory mcg (1,000 unit) capsule irtusike-vxno-aqwg 8 mg-folic 400 1 tab PO QDAY 09/26/24 10/06/24 H istory mcg-K 50 mcg-lutein 300 mcg tablet (Multivitamin Women 50 Plus) lisinopril 20 mg tablet 20 mg PO QDAY 11/11/24 Unknown His tory nystatin 100,000 unit/mL oral 1 ml PO TID 11/11/24 Unknown Histo ry suspension Allergy/AdvReac Type Severity Reaction Status Date / Time acetazolamide (From Diamox AdvReac DEPRESSION Verified 11/17/24 11:07 Sequels) duloxetine (From Cymbalta) AdvReac DEPRESSION Verified 11/17/24 11:07 tetracycline AdvReac DEPRESSION Verified 11/17/24 11:07 Family History Mother Colon cancer Hypertension Cancer pancreatic Father Diabetes Sister Cancer lymphoma Surgical History S/P lumpectomy, right breast H/O lumpectomy History of cholecystectomy History of colectomy History of esophagogastroduodenoscopy (EGD) History of nephrectomy, right Hx of colonoscopy S/P thyroid biopsy history excision right breast lump Social History household members: spouse housing: house Smoking Status: Never smoker alcohol intake: never substance use type: does not use Referring Provider: Harrison Schneider MD Diagnosis: Nori Rodriguez is a 69 year-old female diagnosed with pathologic stage IIIA (pT2 pN2a Mx) grade 3 invasive ductal carcinoma (ER 100%, MA 75%, HER2 2+ IHC and not amplified on FISH) of the right breast status post bilateral screening mammogram (08/25/2024), right breast ultrasound (08/29/2024), completion of right breast and right axilla (more content not included)... Normal [facility] Absolute lymphocyte countOrd ered By: Harrison Schneider on 11-11-2024 Lymphocytes Auto (Unsp spec) [#/Vol] 2.15 10*3/uL 0.83-4.51 [facility] Absolute neutrophil countOrd ered By: Harrison Schneider on 11-11-2024 Neutrophils (Bld) [#/Vol] 5.8 10*3/uL 2.0-7.7 [facility] Anion gap in Serum or Plasma Ordered By: Harrison Schneider on 11-11-2024 Anion gap [Moles/Vol] 11 mmol/L 5-15 [facility] Automated lymphocyte count a s percentage of total leukocytesOrdered By: Harrison Wyatt on 11-11-2024 Lymphocytes/100 WBC Auto (Unsp spec) 24.0 % 19-41 [facility] BUN/creatinine ratioOrdered By: [facility] Wyatt on 11-11-2024 Urea nitrogen/Creatinine [Mass ratio] 20.0 mg/mg 10-20 [facility] Basophil percentageOrdered B y: Harrison Wyatt on 11-11-2024 Basophils/100 WBC (Bld) 0.6 % 0-1 [facility] Bilirubin, totalOrdered By: [facility] Wyatt on 11-11-2024 Bilirubin [Mass/Vol] 0.36 mg/dL 0.00-1.30 [facility] CBC W/Diff, Automatedon Absolute Lymph 2.15 X10 3/uL Normal 0.83-4.51 [facility] Comment on above: Performed By: #### L 500.4050, L100.0100 #### [facility] [address] [place], [address] Absolute Neut 5.8 X10 3/uL Normal 2.0-7.7 [facility] Comment on above: Performed By: #### L 500.4050, L100.0100 #### [facility] [address] [place], [address] Basophils/100 WBC (Bld) 0.6 % Normal 0-1 [facility] Comment on above: Performed By: #### L 500.4050, L100.0100 #### [facility] [address] [place], [address] Eosinophils/100 WBC (Bld) 3.0 % Normal 0-5 [facility] Comment on above: Performed By: #### L 500.4050, L100.0100 #### [facility] [address] [place], [address] Erythrocyte distribution width (RBC) [Ratio] 15.0 % High 11.6-14.6 [facility] Comment on above: Performed By: #### L 500.4050, L100.0100 #### [facility] [address] [place], [address] Hematocrit (Bld) [Volume fraction] 40.9 % Normal 37-47 [facility] Comment on above: Performed By: #### L 500.4050, L100.0100 #### [facility] [address] [place], [address] Hemoglobin (Bld) [Mass/Vol] 13.8 g/dL Normal 12.0-15.0 [facility] Comment on above: Performed By: #### L 500.4050, L100.0100 #### [facility] [address] [place], [address] IG% 0.300 Normal 0.0-0.9 [facility] Comment on above: Result Comment: IG% - Immature Granulocytes (promyelocytes, myelocytes and metamyelocytes) > 1% indicates that a LEFT SHIFT is Present. Performed By: #### L 500.4050, L100.0100 #### [facility] [address], [address] Lymphocytes/100 WBC (Bld) 24.0 % Normal 19-41 [facility] Comment on above: Performed By: #### L 500.4050, L100.0100 #### [facility] [address] [place], [address] MCH (RBC) [Entitic mass] 28.5 pg Normal 27.0-32.0 [facility] Comment on above: Performed By: #### L 500.4050, L100.0100 #### [facility] [address] [place], [address] MCHC (RBC) [Mass/Vol] 33.7 g/dL Normal 32-36 [facility] Comment on above: Performed By: #### L 500.4050, L100.0100 #### [facility] [address] [place], [address] MCV (RBC) [Entitic vol] 84.5 fL Normal 81-99 [facility] Comment on above: Performed By: #### L 500.4050, L100.0100 #### [facility] [address] [place], [address] Monocytes/100 WBC (Bld) 7.3 % Normal 0-10 [facility] Comment on above: Performed By: #### L 500.4050, L100.0100 #### [facility] [address] [place], [address] Neutrophils/100 WBC (Bld) 64.8 % Normal 47-70 [facility] Comment on above: Performed By: #### L 500.4050, L100.0100 #### [facility] [address] [place], [address] Nucleated RBC (Bld) [#/Vol] 0 10*3/uL Normal 0-5 [facility] Comment on above: Performed By: #### L 500.4050, L100.0100 #### [facility] [address] [place], [address] Platelet mean volume (Bld) [Entitic vol] 9.2 fL Normal 6.2-12.0 [facility] Comment on above: Performed By: #### L 500.4050, L100.0100 #### [facility] [address] [place], [address] Platelets (Bld) [#/Vol] 355 10*3/uL Normal 150-450 [facility] Comment on above: Performed By: #### L 500.4050, L100.0100 #### [facility] [address] [place], [address] RBC (Bld) [#/Vol] 4.84 10*6/uL Normal 4.2-5.4 [facility] Comment on above: Performed By: #### L 500.4050, L100.0100 #### [facility] [address] [place], [address] RDW SD 46.1 fl High 35.1-43.9 [facility] Comment on above: Performed By: #### L 500.4050, L100.0100 #### [facility] [address] [place], [address] WBC (Bld) [#/Vol] 9.0 10*3/uL Normal 4.4-11.0 [facility] Comment on above: Performed By: #### L 500.4050, L100.0100 #### [facility] [address] [place], [address] Carbon dioxide, total [Moles /volume] in Central venous bloodOrdered By: Harrison Schneider on 11-11-2024 CO2 [Moles/Vol] 23.4 mmol/L 21.0-32.0 [facility] Chloride assayOrdered By: Antonette Schneider on 11-11-2024 Chloride [Moles/Vol] 105 mmol/L 98-108 [facility] Comprehensive Metabolic Prof ilon 11-11-2024 Albumin [Mass/Vol] 4.2 g/dL Normal 3.4-4.8 [facility] Comment on above: Performed By: #### L 500.4050, L100.0100 #### [facility] [address] [place], [address] Albumin/Globulin [Mass ratio] 1.4 {ratio} Normal 0.9-2.4 [facility] Comment on above: Performed By: #### L 500.4050, L100.0100 #### [facility] [address] [place], [address] ALK PHOS 69 U/L Normal 35-104 [facility] Comment on above: Performed By: #### L 500.4050, L100.0100 #### [facility] [address] [place], [address] ALT [Catalytic activity/Vol] 13 U/L Normal <=34 [facility] Comment on above: Performed By: #### L 500.4050, L100.0100 #### [facility] [address] [place], [address] AST [Catalytic activity/Vol] 18 U/L Normal <=31 [facility] Comment on above: Performed By: #### L 500.4050, L100.0100 #### [facility] [address] [place], [address] Bilirubin [Mass/Vol] 0.36 mg/dL Normal 0.00-1.30 [facility] Comment on above: Performed By: #### L 500.4050, L100.0100 #### [facility] [address] [place], [address] BUN/CRE 20.0 RATIO Normal 10-20 [facility] Comment on above: Performed By: #### L 500.4050, L100.0100 #### [facility] [address] [place], [address] Calcium [Mass/Vol] 9.7 mg/dL Normal 7.6-11.0 [facility] Comment on above: Performed By: #### L 500.4050, L100.0100 #### [facility] [address] [place], [address] Chloride [Moles/Vol] 105 mmol/L Normal 98-108 [facility] Comment on above: Performed By: #### L 500.4050, L100.0100 #### [facility] [address] [place], [address] CO2 [Moles/Vol] 23.4 mmol/L Normal 21.0-32.0 [facility] Comment on above: Performed By: #### L 500.4050, L100.0100 #### [facility] [address] [place], [address] Creatinine [Mass/Vol] 1.02 mg/dL Normal 0.70-1.20 [facility] Comment on above: Performed By: #### L 500.4050, L100.0100 #### [facility] [address] [place], [address] ECRCL 56.44 ml/min Normal 50-250 [facility] Comment on above: Performed By: #### L 500.4050, L100.0100 #### [facility] [address] [place], [address] GAP 11 Normal 5-15 [facility] Comment on above: Performed By: #### L 500.4050, L100.0100 #### [facility] [address] [place], [address] GFR/1.73 sq M.predicted among non-blacks MDRD (S/P/Bld) [Vol rate/Area] 60 mL/min/{1.73_m2} Normal >60 [facility] Comment on above: Result Comment: mL/m in/1.73m2 CKD-EPI Creatinine Equation (2020) Performed By: #### L 500.4050, L100.0100 #### [facility] [address] [place], [address] Globulin (S) [Mass/Vol] 2.9 g/dL Normal 2.2-4.2 [facility] Comment on above: Performed By: #### L 500.4050, L100.0100 #### [facility] [address] [place], [address] Glucose [Mass/Vol] 94 mg/dL Normal 70-99 [facility] Comment on above: Performed By: #### L 500.4050, L100.0100 #### [facility] [address] [place], [address] Potassium [Moles/Vol] 4.0 mmol/L Normal 3.3-5.1 [facility] Comment on above: Performed By: #### L 500.4050, L100.0100 #### [facility] [address] [place], [address] Sodium [Moles/Vol] 139 mmol/L Normal 133-145 [facility] Comment on above: Performed By: #### L 500.4050, L100.0100 #### [facility] [address] [place], [address] T PROT 7.1 g/dL Normal 5.9-8.4 [facility] Comment on above: Performed By: #### L 500.4050, L100.0100 #### [facility] [address] [place], [address] Urea nitrogen [Mass/Vol] 20 mg/dL High 4-19 [facility] Comment on above: Performed By: #### L 500.4050, L100.0100 #### [facility] [address] [place], [address] Eosinophil percentageOrdered By: Harrison Schneider on 11-11-2024 Eosinophils/100 WBC (Bld) 3.0 % 0-5 [facility] Erythrocyte distribution wid th ratioOrdered By: Harrison Schneider on 11-11-2024 Erythrocyte distribution width (RBC) [Ratio] 15.0 % High 11.6-14.6 [facility] Erythrocyte distribution wid th standard deviationOrdered By: Harrison Schneider on 11-11-2024 Erythrocyte distribution width (RBC) [Ratio] 46.1 fl High 35.1-43.9 [facility] Glomerular filtration rate ( GFR) estimation/1.73 sq m using serum, plasma, or whole bOrdered By: Harrison Schneider on 11-11-2024 GFR/1.73 sq M.predicted among non-blacks MDRD (S/P/Bld) [Vol rate/Area] 60 mL/min/{1.73_m2} >60 [facility] Comment on above: mL/min/1.73m2 CKD-EP I Creatinine Equation (2020) Hematocrit Auto (Bld) [Volum e fraction]Ordered By: Harrison Schneider on 11-11-2024 Hematocrit (Bld) [Volume fraction] 40.9 % 37-47 [facility] Hemoglobin measurementOrdere d By: Harrison Schneider on 11-11-2024 Hemoglobin (Bld) [Mass/Vol] 13.8 g/dL 12.0-15.0 [facility] Immature granulocytes/100 WB C Auto (Bld)Ordered By: Harrison Schneider on 11-11-2024 Immature granulocytes/100 WBC (Bld) 0.300 % 0.0-0.9 [facility] Comment on above: IG% - Immature Granu locytes (promyelocytes, myelocytes and metamyelocytes) > 1% indicates that a LEFT SHIFT is Present. Laboratory - Chemistry and C hemistry - challengeOrdered By: Harrison Schneider on 11-11-2024 AST [Catalytic activity/Vol] 18 U/L <32 [facility] MCV (mean corpuscular volume ) determinationOrdered By: Harrison Schneider on 11-11-2024 MCV (RBC) [Entitic vol] 84.5 fL 81-99 [facility] Mean corpuscular hemoglobin (MCH) determinationOrdered By: [facility] Schneider on 11-11-2024 MCH (RBC) [Entitic mass] 28.5 pg 27.0-32.0 [facility] Mean corpuscular hemoglobin concentration (MCHC) determinationOrdered By: Harrison Schneider on 11-11-2024 MCHC (RBC) [Mass/Vol] 33.7 g/dL 32-36 [facility] Mean platelet volume determi nationOrdered By: Harrison Schneider on 11-11-2024 Platelet mean volume (Bld) [Entitic vol] 9.2 fL 6.2-12.0 [facility] Monocyte percentageOrdered B y: Harrison Schneider on 11-11-2024 Monocytes/100 WBC (Bld) 7.3 % 0-10 [facility] Neutrophil percentageOrdered By: Harrison Schneider on 11-11-2024 Neutrophils/100 WBC (Bld) 64.8 % 47-70 [facility] Nucleated red blood cell per centageOrdered By: [facility] Schneider on 11-11-2024 Nucleated RBC/100 WBC (Bld) [Ratio] 0 % 0-5 [facility] Oncology Visit Reporton Oncology Visit Report [facility] [place] [facility] [address] [place] [address] OFFICE VISIT Date of Service: 11/11/24 1135 MR#: [id number] Acct: [id number] Name: MICHAELNORI DELFINA Rep #: [id number] : 1955 From: Harrison Schneider MD Age/Sex: 69/F Location: [facility] Status: Signed HPI Subjective Date of Service 11/11/24 Chief Complaint Breast cancer History of Present Illness 69-year-old female who presented after an abnormal screening mammogram and ultrasound showing a suspicious retroareolar right breast mass and a suspicious right axillary lymph node BI-RADS 5. September 15, 2024 microscopic diagnosis: A. Breast, right, mass, biopsy: - Invasive ductal carcinoma, Grade 2 (tubule 3, nuclear 2, mitosis 1), at least 0.7 cm (see note). - Ductal carcinoma in situ (DCIS), low nuclear grade with focal microcalcification, negative for necrosis, span of 0.2 cm. - ER: positive (100%, strong intensity). - MA: positive (75% invasive/100% in situ, variable intermediate-strong intensity). - [id number]: equivocal (2+) - [id number]: Not amplified (final) Note: IHC for Ecadherin, CK5/6, and p40 support the histologic impression. B. Lymph node, right, axilla, core biopsy: - No metastatic carcinoma seen. October 07, 2024 right breast lumpectomy with sentinel lymph node biopsy and right axillary lymph node dissection: FROZEN SECTION DIAGNOSIS B. Right breast, sentinel lymph node, biopsy: Positive for macrometastasis. MS/mr 10/07/2024 MICROSCOPIC DIAGNOSIS A. Breast, right, mass, lumpectomy: - Invasive ductal carcinoma, Grade 3 (tubule 3, nuclear 3, mitosis 3), pT2a pN2a. - DCIS (ductal carcinoma in situ), extensive, high nuclear grade with comedo necrosis. - Lateral and anterior margins positive for DCIS. - Lateral margin < 1 mm to invasive ductal carcinoma. B. Breast, right, lymph node, sentinel, excision: - Positive for macrometastasis, 12 mm (1/). C. Axilla, right, contents, excision: - Three of 5 lymph nodes positive for metastasis (3/5). - Extranodal tumor extension, 8 mm. D. Breast, right, new anterior, margin, excision: - DCIS (ductal carcinoma in situ) with comedo necrosis, 1 mm from the new surgical margin. E. Breast, right, new superior, margin, excision: - DCIS (ductal carcinoma in situ) less than 1 mm from the new surgical margin. F. Breast, right, new lateral, margin, excision: - Negative for in situ and invasive carcinoma. - Fibrocystic mastopathy. SYNOPTIC REPORT FOR INVASIVE BREAST CARCINOMA Specimen (P=partial, M=mastectomy): P Laterality (R=right, L=left): R Focality (U=unifocal, M=multifocal): U Tumor size (cm): 2.9 cm Histologic type: invasive ductal carcinoma, NST Histologic grade: 3 Tubule score (1-3): 3 Nuclear score (1-3): 3 Mitotic score (1-3): 3 Skin, nipple epidermis, skeletal muscle (I=involved, N=negative, Not applicable): N Lymphovascular invasion (E=extensive, F=focal, N=not identified): N Margins of main specimen (P=positive, N=negative): N for invasive carcinoma Distance to closest margin of main specimen (mm): < 1 mm Designation of closest margin of main specimen: lateral Designation of other margins of main specimen Re-resection margin status (P=positive, N=negative, NA=not applicable): N DCIS (P=present, N=not identified): P Nuclear grade: high Comedo necrosis (P=present, N=not identified): P Extensive intraductal component (P=present, N=not identified): P Margins of main specimen (P=positive, N=negative): P Distance to closest margin of main specimen (mm): involving/at Designation of closest margin of main specimen: lateral and anterior Designation of other margins of main specimen Longest span Re-resection margin status (P=positive, N=negative, NA=not applicable): N (< 1 mm) Regional lymph nodes: Total number of lymph nodes: 6 Number of sentinel lymph nodes: 1 Number with macrometastases: 4 Number with micrometastases: 0 Number with isolated tumor cells: 0 Size of largest meche metastasis (mm): 12 mm Size of extranodal extension (mm) (N=not identified): 8 mm Estrogen receptor: positive (95%, strong intensity) Progesterone receptor: positive (60%, intermediate intensity) HER2 IHC: negative (1+) HER2 FISH: NA Ki67: 40% Specimen in which ER/MA/HER2 performed: [id number] A pTNM: pT2 pN2a Additional findings: fibrocystic mastopathy [facility] Medical History (Updated 11/11/24 @ 12:[address] Harrison Schneider MD) Regional lymph node metastasis present Cancer of kidney Thyroid nodule Oral thrush History of echocardiogram Fibromyalgia Abnormal ultrasound of breast Abnormal mammogram Mass Cancer Anemia Syncope Stool color black Stool bloody Gastric reflux Chest pain Abdominal pain Diverticulitis Wears glasses Anxiety Thyroid disease Arthritis Back pain History of diverticulitis Non-smoker (more content not included)... Normal [facility] Platelet countOrdered By: Antonette Schneider on 11-11-2024 Platelets (Bld) [#/Vol] 355 10*3/uL 150-450 [facility] Potassium measurement (mass/ volume)Ordered By: Harrison Schneider on 11-11-2024 Potassium (Unsp spec) [Mass/Vol] 4.0 mmol/L 3.3-5.1 [facility] RBC Auto (Bld) [#/Vol]Ordere d By: Harrison Schneider on 11-11-2024 RBC (Bld) [#/Vol] 4.84 10*6/uL 4.2-5.4 [facility] Serum creatinine measurement (mass/volume)Ordered By: Harrison Schneider on 11-11-2024 Creatinine [Mass/Vol] 1.02 mg/dL 0.70-1.20 [facility] Serum globulin measurementOr dered By: Harrison Schneider on 11-11-2024 Globulin (S) [Mass/Vol] 2.9 g/dL 2.2-4.2 [facility] Serum glucose measurement (m ass/volume)Ordered By: Harrison Schneider on 11-11-2024 Glucose [Mass/Vol] 94 mg/dL 70-99 [facility] Serum or plasma alanine aguirre otransferase (ALT) measurementOrdered By: Harrison Schneider on 11-11-2024 ALT [Catalytic activity/Vol] 13 U/L <35 [facility] Serum or plasma albumin cl urement (mass/volume)Ordered By: Harrison Schneider on 11-11-2024 Albumin [Mass/Vol] 4.2 g/dL 3.4-4.8 [facility] Serum or plasma albumin/glob ulin mass ratioOrdered By: Harrison Schneider on 11-11-2024 Albumin/Globulin [Mass ratio] 1.4 {ratio} 0.9-2.4 [facility] Serum or plasma alkaline mars sphatase measurementOrdered By: Harrison Schneider on 11-11-2024 ALP [Catalytic activity/Vol] 69 U/L 35-104 [facility] Serum or plasma calcium cl urement (mass/volume)Ordered By: Harrison Schneider on 11-11-2024 Calcium [Mass/Vol] 9.7 mg/dL 7.6-11.0 [facility] Serum or plasma urea nitroge n measurement (mass/volume)Ordered By: Harrison Schneider on 11-11-2024 Urea nitrogen [Mass/Vol] 20 mg/dL High 4-19 [facility] Sodium levelOrdered By: Hira Schneider on 11-11-2024 Sodium [Moles/Vol] 139 mmol/L 133-145 [facility] Total proteinOrdered By: Ousmane Schneider on 11-11-2024 Protein [Mass/Vol] 7.1 g/dL 5.9-8.4 [facility] White blood cell (WBC) count Ordered By: Harrison Schneider on 11-11-2024 WBC (Bld) [#/Vol] 9.0 10*3/uL 4.4-11.0 [facility] Surgery Visit Reporton 10-30 Surgery Visit Report [facility] [address] [place] [address] OFFICE VISIT Date of Service: 10/30/24 MR#: [id number] Acct: [id number] Name: NORI RODRIGUEZ Rep #: [id number] : 1955 Provider: Dr. Jeremiah almodovar MD Age/Sex: 69/F Location: [facility] Status: Signed Intake Vital Signs 10/07/24 10:26 10/30/24 10:08 Height 5 ft 3 in 5 ft 3 in Weight: 205 lb BMI 36.3 BP 127/76 H Blood Pressure Location Rt brachial Position Sitting Respiration 18 Pulse 64 Pulse Source Monitor Temp 97.8 F Temp Source Temporal Pulse Oximetry (%) 96 Oxygen Delivery Method room air Intake Visit Reasons: DISCUSS BREAST SX Chief Complaint: discuss breast sx Accompanied by: and daughter in law Is patient in pain?: No Allergies acetazolamide (From Diamox Sequels) Adverse Reaction (Verified 10/30/24 10:09) DEPRESSION duloxetine (From Cymbalta) Adverse Reaction (Verified 10/30/24 10:09) DEPRESSION tetracycline Adverse Reaction (Verified 10/30/24 10:09) DEPRESSION Medications ???Medication ???Instructions ???Recorded ???Confirmed ???Type omega-3 fatty acids 1,000 mg 2,000 mg PO QDAY SUPPLEMENT 10/30/24 History capsule (Fish Oil Concentrate) acetaminophen 325 mg tablet 650 mg PO Q4H PRN Pain 02/02/21 History (Tylenol) magnesium citrate 125 mg capsule 250 mg PO DAILY 05/23/23 10/30/24 History lisinopril 20 1 tab PO QDAY 05/28/24 10/30/24 Hi story mg-hydrochlorothiazide 25 mg tablet cholecalciferol (vitamin D3) 25 25 mcg PO QDAY 09/26/24 10/30/24 H istory mcg (1,000 unit) capsule paxrvvyv-mios-ekhw 8 mg-folic 400 1 tab PO QDAY 09/26/24 10/30/24 H istory mcg-K 50 mcg-lutein 300 mcg tablet (Multivitamin Women 50 Plus) herbal sleep supplement 2 tab PO .nightly PRN sleep aid 10/30/24 History nystatin 100,000 unit/mL oral 1 ml PO TID 10 days #30 mL 5 10/30/24 Rx suspension Have you fallen in the past year?: No PFSH Medical History Oral thrush History of echocardiogram Fibromyalgia Abnormal ultrasound of breast Abnormal mammogram Mass Cancer Anemia Syncope Stool color black Stool bloody Gastric reflux Chest pain Abdominal pain Diverticulitis Wears glasses Anxiety Thyroid disease Arthritis History of renal disease Back pain History of diverticulitis Non-smoker CPAP (continuous positive airway pressure) dependence Shortness of breath on exertion History of pain when walking Nodular thyroid disease Hemorrhoids Sleep apnea Hypertension Surgical History S/P lumpectomy, right breast H/O lumpectomy History of cholecystectomy History of colectomy History of esophagogastroduodenoscopy (EGD) History of nephrectomy, right Hx of colonoscopy S/P thyroid biopsy history excision right breast lump Family History Mother Colon cancer Hypertension Father Diabetes Social History household members: spouse housing: house Smoking Status: Never smoker alcohol intake: never substance use type: does not use HPI HPI HPI: Patient is a 68-year-old female status post a right breast lumpectomy for invasive ductal carcinoma. I had previously called her to discuss pathology results over the phone but we are discussing this further [id number]. Unfortunately she had 4 lymph nodes positive and also her margins were quite close with DCIS less than 1 mm from the margin and a couple different locations. Over the phone we discussed strongly the need for further tissue removal to establish sufficient margins. Due to the fact the multiple margins were close, we strongly encouraged her to consider the possibility of mastectomy. She returns today to discuss this further. She denies any new issues or problems. ROS General General: Yes weight change and breast cancer; No appetite, fatigue, colon cancer or weakness HEENT HEENT: No difficulty swallowing, eye injury, eye surgery, swollen glands or hoarseness Endo Endocrine: Yes thyroid disease; No diabetes mellitus, thyroid cancer, Hair loss, heat intolerance or cold intolerance Skin Skin: No rash or changing moles Musc Musculoskeletal: Yes back problems and arthritis; No rheumatoid arthritis, gout or joint pain Cardio Cardiovascular: Yes high blood pressure; No murmur, pacemaker, heart disease, atrial fibrillation, heart attack, heart stent, palpitations, shortness of breath with exertion or chest pain Psych Psychiatric: No depression, anxiety or hearing voices Resp Respiratory: No shortne (more content not included)... Normal [facility] Absolute lymphocyte countOrd ered By: Nellie Rome on 10-20-2024 Lymphocytes Auto (Unsp spec) [#/Vol] 2.14 10*3/uL 0.83-4.51 [facility] Absolute neutrophil countOrd ered By: Nellie Rome on 10-20-2024 Neutrophils (Bld) [#/Vol] 9.3 10*3/uL High 2.0-7.7 [facility] Anion gap in Serum or Plasma Ordered By: Nellie Rome on 10-20-2024 Anion gap [Moles/Vol] 12 mmol/L 5-15 [facility] Automated lymphocyte count a s percentage of total leukocytesOrdered By: Nellie Rome on 10-20-2024 Lymphocytes/100 WBC Auto (Unsp spec) 16.9 % Low 19-41 [facility] BUN/creatinine ratioOrdered By: Nellie Rome on 10-20-2024 Urea nitrogen/Creatinine [Mass ratio] 17.8 mg/mg 10-20 [facility] Basophil percentageOrdered B y: Nellie Rome on 10-20-2024 Basophils/100 WBC (Bld) 0.7 % 0-1 [facility] Bilirubin, totalOrdered By: Nellie Rome on 10-20-2024 Bilirubin [Mass/Vol] 0.46 mg/dL 0.00-1.30 [facility] CBC W/Diff, Automatedon 08-03 12-2024 Absolute Lymph 2.14 X10 3/uL Normal 0.83-4.51 [facility] Comment on above: Performed By: #### L 100.0100, L500.4050 #### [facility] [address] [place], [address] Absolute Neut 9.3 X10 3/uL High 2.0-7.7 [facility] Comment on above: Performed By: #### L 100.0100, L500.4050 #### [facility] [address] [place], [address] Basophils/100 WBC (Bld) 0.7 % Normal 0-1 [facility] Comment on above: Performed By: #### L 100.0100, L500.4050 #### [facility] [address] [place], [address] Eosinophils/100 WBC (Bld) 2.0 % Normal 0-5 [facility] Comment on above: Performed By: #### L 100.0100, L500.4050 #### [facility] [address] [place], [address] Erythrocyte distribution width (RBC) [Ratio] 13.8 % Normal 11.6-14.6 [facility] Comment on above: Performed By: #### L 100.0100, L500.4050 #### [facility] [address] [place], [address] Hematocrit (Bld) [Volume fraction] 40.5 % Normal 37-47 [facility] Comment on above: Performed By: #### L 100.0100, L500.4050 #### [facility] [address] [place], [address] Hemoglobin (Bld) [Mass/Vol] 14.1 g/dL Normal 12.0-15.0 [facility] Comment on above: Performed By: #### L 100.0100, L500.4050 #### [facility] [address] [place], [address] IG% 0.400 Normal 0.0-0.9 [facility] Comment on above: Result Comment: IG% - Immature Granulocytes (promyelocytes, myelocytes and metamyelocytes) > 1% indicates that a LEFT SHIFT is Present. Performed By: #### L 100.0100, L500.4050 #### [facility] [address] [place], [address] Lymphocytes/100 WBC (Bld) 16.9 % Low 19-41 [facility] Comment on above: Performed By: #### L 100.0100, L500.4050 #### [facility] [address] [place], [address] MCH (RBC) [Entitic mass] 28.3 pg Normal 27.0-32.0 [facility] Comment on above: Performed By: #### L 100.0100, L500.4050 #### [facility] [address] [place], [address] MCHC (RBC) [Mass/Vol] 34.8 g/dL Normal 32-36 [facility] Comment on above: Performed By: #### L 100.0100, L500.4050 #### [facility] [address] [place], [address] MCV (RBC) [Entitic vol] 81.2 fL Normal 81-99 [facility] Comment on above: Performed By: #### L 100.0100, L500.4050 #### [facility] [address] [place], [address] Monocytes/100 WBC (Bld) 6.6 % Normal 0-10 [facility] Comment on above: Performed By: #### L 100.0100, L500.4050 #### [facility] [address] [place], [address] Neutrophils/100 WBC (Bld) 73.4 % High 47-70 [facility] Comment on above: Performed By: #### L 100.0100, L500.4050 #### [facility] [address] [place], [address] Nucleated RBC (Bld) [#/Vol] 0 10*3/uL Normal 0-5 [facility] Comment on above: Performed By: #### L 100.0100, L500.4050 #### [facility] [address] [place], [address] Platelet mean volume (Bld) [Entitic vol] 9.5 fL Normal 6.2-12.0 [facility] Comment on above: Performed By: #### L 100.0100, L500.4050 #### [facility] [address] [place], [address] Platelets (Bld) [#/Vol] 374 10*3/uL Normal 150-450 [facility] Comment on above: Performed By: #### L 100.0100, L500.4050 #### [facility] [address] [place], [address] RBC (Bld) [#/Vol] 4.99 10*6/uL Normal 4.2-5.4 [facility] Comment on above: Performed By: #### L 100.0100, L500.4050 #### [facility] [address] [place], [address] RDW SD 40.5 fl Normal 35.1-43.9 [facility] Comment on above: Performed By: #### L 100.0100, L500.4050 #### [facility] [address] [place], [address] WBC (Bld) [#/Vol] 12.6 10*3/uL High 4.4-11.0 [facility] Comment on above: Performed By: #### L 100.0100, L500.4050 #### [facility] [address] [place], [address] Carbon dioxide, total [Moles /volume] in Central venous bloodOrdered By: Nellie Rome on 10-20-2024 CO2 [Moles/Vol] 24.4 mmol/L 21.0-32.0 [facility] Chloride assayOrdered By: Dieter orellanadelphine Latricia on 10-20-2024 Chloride [Moles/Vol] 93 mmol/L Low 98-108 [facility] Comprehensive Metabolic Prof ilon 10-20-2024 Albumin [Mass/Vol] 4.1 g/dL Normal 3.4-4.8 [facility] Comment on above: Performed By: #### L 100.0100, L500.4050 #### [facility] [address] [place], [address] Albumin/Globulin [Mass ratio] 1.6 {ratio} Normal 0.9-2.4 [facility] Comment on above: Performed By: #### L 100.0100, L500.4050 #### [facility] [address] [place], [address] ALK PHOS 61 U/L Normal 35-104 [facility] Comment on above: Performed By: #### L 100.0100, L500.4050 #### [facility] [address] [place], [address] ALT [Catalytic activity/Vol] 14 U/L Normal <=34 [facility] Comment on above: Performed By: #### L 100.0100, L500.4050 #### [facility] [address] [place], [address] AST [Catalytic activity/Vol] 18 U/L Normal <=31 [facility] Comment on above: Performed By: #### L 100.0100, L500.4050 #### [facility] [address] [place], [address] Bilirubin [Mass/Vol] 0.46 mg/dL Normal 0.00-1.30 [facility] Comment on above: Performed By: #### L 100.0100, L500.4050 #### [facility] [address] [place], [address] BUN/CRE 17.8 RATIO Normal 10-20 [facility] Comment on above: Performed By: #### L 100.0100, L500.4050 #### [facility] [address] [place], [address] Calcium [Mass/Vol] 9.3 mg/dL Normal 7.6-11.0 [facility] Comment on above: Performed By: #### L 100.0100, L500.4050 #### [facility] [address] [place], [address] Chloride [Moles/Vol] 93 mmol/L Low 98-108 [facility] Comment on above: Performed By: #### L 100.0100, L500.4050 #### [facility] [address] [place], [address] CO2 [Moles/Vol] 24.4 mmol/L Normal 21.0-32.0 [facility] Comment on above: Performed By: #### L 100.0100, L500.4050 #### [facility] [address] [place], [address] Creatinine [Mass/Vol] 0.91 mg/dL Normal 0.70-1.20 [facility] Comment on above: Performed By: #### L 100.0100, L500.4050 #### [facility] [address] [place], [address] GAP 12 Normal 5-15 [facility] Comment on above: Performed By: #### L 100.0100, L500.4050 #### [facility] [address] [place], [address] GFR/1.73 sq M.predicted among non-blacks MDRD (S/P/Bld) [Vol rate/Area] 68 mL/min/{1.73_m2} Normal >60 [facility] Comment on above: Result Comment: mL/m in/1.73m2 CKD-EPI Creatinine Equation (2020) Performed By: #### L 100.0100, L500.4050 #### [facility] [address] [place], [address] Globulin (S) [Mass/Vol] 2.6 g/dL Normal 2.2-4.2 [facility] Comment on above: Performed By: #### L 100.0100, L500.4050 #### [facility] [address] [place], [address] Glucose [Mass/Vol] 118 mg/dL High 70-99 [facility] Comment on above: Performed By: #### L 100.0100, L500.4050 #### [facility] [address] [place], [address] Potassium [Moles/Vol] 3.7 mmol/L Normal 3.3-5.1 [facility] Comment on above: Performed By: #### L 100.0100, L500.4050 #### [facility] [address] [place], [address] Sodium [Moles/Vol] 129 mmol/L Low 133-145 [facility] Comment on above: Performed By: #### L 100.0100, L500.4050 #### [facility] [address] [place], [address] T PROT 6.6 g/dL Normal 5.9-8.4 [facility] Comment on above: Performed By: #### L 100.0100, L500.4050 #### [facility] [address] [place], [place], [address] Urea nitrogen [Mass/Vol] 16 mg/dL Normal 4-19 [facility] Comment on above: Performed By: #### L 100.0100, L500.4050 #### [facility] [address] [place], [place], [id number] Eosinophil percentageOrdered By: Nellie Rome on 10-20-2024 Eosinophils/100 WBC (Bld) 2.0 % 0-5 [facility] Erythrocyte distribution wid th ratioOrdered By: Nellie Rome on 10-20-2024 Erythrocyte distribution width (RBC) [Ratio] 13.8 % 11.6-14.6 [facility] Erythrocyte distribution wid th standard deviationOrdered By: Nellie Rome on 10-20-2024 Erythrocyte distribution width (RBC) [Ratio] 40.5 fl 35.1-43.9 [facility] Glomerular filtration rate ( GFR) estimation/1.73 sq m using serum, plasma, or whole bOrdered By: Nellie Rome on 10-20-2024 GFR/1.73 sq M.predicted among non-blacks MDRD (S/P/Bld) [Vol rate/Area] 68 mL/min/{1.73_m2} >60 [facility] Comment on above: mL/min/1.73m2 CKD-EP I Creatinine Equation (2020) Hematocrit Auto (Bld) [Volum e fraction]Ordered By: Nellie Rome on 10-20-2024 Hematocrit (Bld) [Volume fraction] 40.5 % 37-47 [facility] Hemoglobin measurementOrdere d By: Nellie Rome on 10-20-2024 Hemoglobin (Bld) [Mass/Vol] 14.1 g/dL 12.0-15.0 [facility] Immature granulocytes/100 WB C Auto (Bld)Ordered By: Nellie Rome on 10-20-2024 Immature granulocytes/100 WBC (Bld) 0.400 % 0.0-0.9 [facility] Comment on above: IG% - Immature Granu locytes (promyelocytes, myelocytes and metamyelocytes) > 1% indicates that a LEFT SHIFT is Present. Laboratory - Chemistry and C hemistry - challengeOrdered By: Nellie Rome on 10-20-2024 AST [Catalytic activity/Vol] 18 U/L <32 [facility] MCV (mean corpuscular volume ) determinationOrdered By: Nellie Rome on 10-20-2024 MCV (RBC) [Entitic vol] 81.2 fL 81-99 [facility] Mean corpuscular hemoglobin (MCH) determinationOrdered By: Nellie Rome on 10-20-2024 MCH (RBC) [Entitic mass] 28.3 pg 27.0-32.0 [facility] Mean corpuscular hemoglobin concentration (MCHC) determinationOrdered By: Nellie Rome on 10-20-2024 MCHC (RBC) [Mass/Vol] 34.8 g/dL 32-36 [facility] Mean platelet volume determi nationOrdered By: Nellie Rome on 10-20-2024 Platelet mean volume (Bld) [Entitic vol] 9.5 fL 6.2-12.0 [facility] Monocyte percentageOrdered B y: Nellie Rome on 10-20-2024 Monocytes/100 WBC (Bld) 6.6 % 0-10 [facility] Neutrophil percentageOrdered By: Nellie Rome on 10-20-2024 Neutrophils/100 WBC (Bld) 73.4 % High 47-70 [facility] Nucleated red blood cell per centageOrdered By: Nellie Rome on 10-20-2024 Nucleated RBC/100 WBC (Bld) [Ratio] 0 % 0-5 [facility] Platelet countOrdered By: Dieter Rome on 10-20-2024 Platelets (Bld) [#/Vol] 374 10*3/uL 150-450 [facility] Potassium measurement (mass/ volume)Ordered By: Nellie Rome on 10-20-2024 Potassium (Unsp spec) [Mass/Vol] 3.7 mmol/L 3.3-5.1 [facility] RBC Auto (Bld) [#/Vol]Ordere d By: Nellie Rome on 10-20-2024 RBC (Bld) [#/Vol] 4.99 10*6/uL 4.2-5.4 [facility] Serum creatinine measurement (mass/volume)Ordered By: Nellie Rome on 10-20-2024 Creatinine [Mass/Vol] 0.91 mg/dL 0.70-1.20 [facility] Serum globulin measurementOr dered By: Nellie Rome on 10-20-2024 Globulin (S) [Mass/Vol] 2.6 g/dL 2.2-4.2 [facility] Serum glucose measurement (m ass/volume)Ordered By: Nellie Rome on 10-20-2024 Glucose [Mass/Vol] 118 mg/dL High 70-99 [facility] Serum or plasma alanine aguirre otransferase (ALT) measurementOrdered By: Nellie Rome on 10-20-2024 ALT [Catalytic activity/Vol] 14 U/L <35 [facility] Serum or plasma albumin cl urement (mass/volume)Ordered By: Nellie Rome on 10-20-2024 Albumin [Mass/Vol] 4.1 g/dL 3.4-4.8 [facility] Serum or plasma albumin/glob ulin mass ratioOrdered By: Nellie Rome on 10-20-2024 Albumin/Globulin [Mass ratio] 1.6 {ratio} 0.9-2.4 [facility] Serum or plasma alkaline mars sphatase measurementOrdered By: Nellie Rome on 10-20-2024 ALP [Catalytic activity/Vol] 61 U/L 35-104 [facility] Serum or plasma calcium cl urement (mass/volume)Ordered By: Nellie Rome on 10-20-2024 Calcium [Mass/Vol] 9.3 mg/dL 7.6-11.0 [facility] Serum or plasma urea nitroge n measurement (mass/volume)Ordered By: Nellie Rome on 10-20-2024 Urea nitrogen [Mass/Vol] 16 mg/dL 4-19 [facility] Sodium levelOrdered By: Mandy akers Mitom on 10-20-2024 Sodium [Moles/Vol] 129 mmol/L Low 133-145 [facility] Total proteinOrdered By: Vernon Foyyaalinda on 10-20-2024 Protein [Mass/Vol] 6.6 g/dL 5.9-8.4 [facility] White blood cell (WBC) count Ordered By: Nellie Foyyaalinda on 10-20-2024 WBC (Bld) [#/Vol] 12.6 10*3/uL High 4.4-11.0 [facility] Surgery Visit Reporton 10-14 Surgery Visit Report [facility] [address] [place] [address] OFFICE VISIT Date of Service: 10/14/24 MR#: [id number] Acct: [id number] Name: NORI RODRIGUEZ Rep #: [id number] : 1955 Provider: Dr. Jeremiah almodovar MD Age/Sex: 69/F Location: [facility] Status: Signed Intake Vital Signs 10/07/24 10:26 Height 5 ft 3 in Intake Visit Reasons: S/P LUMPECTOMY 10-07 Chief Complaint: s/p lumpectomy 10/07 Is patient in pain?: No Allergies acetazolamide (From Diamox Sequels) Adverse Reaction (Verified 10/14/24 14:06) DEPRESSION duloxetine (From Cymbalta) Adverse Reaction (Verified 10/14/24 14:06) DEPRESSION tetracycline Adverse Reaction (Verified 10/14/24 14:06) DEPRESSION Medications ???Medication ???Instructions ???Recorded ???Confirmed ???Type omega-3 fatty acids 1,000 mg 2,000 mg PO QDAY SUPPLEMENT 10/14/24 History capsule (Fish Oil Concentrate) acetaminophen 325 mg tablet 650 mg PO Q4H PRN Pain 02/02/21 History (Tylenol) magnesium citrate 125 mg capsule 250 mg PO DAILY 05/23/23 10/14/24 History lisinopril 20 1 tab PO QDAY 05/28/24 10/14/24 Hi story mg-hydrochlorothiazide 25 mg tablet cholecalciferol (vitamin D3) 25 25 mcg PO QDAY 09/26/24 10/14/24 H istory mcg (1,000 unit) capsule [id number] 8 mg-folic 400 1 tab PO QDAY 09/26/24 10/14/24 H istory mcg-K 50 mcg-lutein 300 mcg tablet (Multivitamin Women 50 Plus) herbal sleep supplement 2 tab PO .nightly PRN sleep aid 10/14/24 History nystatin 100,000 unit/mL oral 1 ml PO TID 10 days #30 mL 5 10/14/24 Rx suspension Have you fallen in the past year?: No Subjective Details: The patient is a 69-year-old female status post a recent right breast lumpectomy for breast cancer. Pathology is still pending. She presents today for postop evaluation and to remove her TANVIR drain. Drain output has been about 25 or less. At the time of surgery she had several lymph nodes that were clinically positive. We did need to excise some additional tissue to establish margins. Overall she seems to be doing well following the surgery. No significant issues or complaints. She does admit that she has not completely satisfied with cosmesis which is understandable given the amount of tissue that needed to be removed from the central portion of the breast. She denies any fevers or chills. No drainage. Objective Details: She is alert and oriented x 3. She is in no acute distress. TANVIR drain output has been minimal serosanguineous. This was easily removed. The incisions appear to be well-approximated and without signs of erythema or infection. There is some mild ecchymosis Around the nipple there is some inward protrusion of the skin due to breast tissue volume loss. No signs of erythema or infection Coding Level of Care Code Global Post Op Diagnoses S/P lumpectomy, right breast Z98.890 [facility] Medical History (Updated 10/14/24 @ 14:[address] Jeremiah Franco MD) Oral thrush History of echocardiogram Fibromyalgia Abnormal ultrasound of breast Abnormal mammogram Mass Cancer Anemia Syncope Stool color black Stool bloody Gastric reflux Chest pain Abdominal pain Diverticulitis Wears glasses Anxiety Thyroid disease Arthritis History of renal disease Back pain History of diverticulitis Non-smoker CPAP (continuous positive airway pressure) dependence Shortness of breath on exertion History of pain when walking Nodular thyroid disease Hemorrhoids Sleep apnea Hypertension Surgical History (Updated 10/14/24 @ 14:08 by Margarita Bowles) S/P lumpectomy, right breast H/O lumpectomy History of cholecystectomy History of colectomy History of esophagogastroduodenoscopy (EGD) History of nephrectomy, right Hx of colonoscopy S/P thyroid biopsy history excision right breast lump Family History Mother Colon cancer Hypertension Father Diabetes Social History household members: spouse housing: house Smoking Status: Never smoker alcohol intake: never substance use type: does not use Assessment and Plan (No Qualifiers) Assessment and Plan (1) S/P lumpectomy, right breast: Status: Acute Plan: The patient is a 69-year-old female status post a right breast lumpectomy and sentinel lymph node biopsy along with a complete axillary dissection. She had several lymph nodes positive. It was a generous lumpectomy and we still needed to remove some additional tissue. This certainly did have some effect on cosmesis due to the volume loss. We did discuss the fact that margins are extremely important. We do need to await pathology results. We did (more content not included)... Normal [facility] Breast Biopsy Specimenon Breast Biopsy Specimen [facility] [address] [place] [id number] Breast Biopsy Specimen MR#: [id number] Acct: [id number] Name: NORI RODRIGUEZ Rep #: [id number] : 1955 F 69 From: [facility] wade MD PCP: Dr. Nellie Rome MD Status: [facility] Study: Breast Biopsy Specimen Date of Exam: 10/07/24 Exam# [id number] Ordering Dr: Jeremiah Franco MD EXAM: BREAST BIOPSY SPECIMEN N/A CLINICAL HISTORY: F, Age 69 y/o , TECHNIQUE: BREAST BIOPSY SPECIMEN COMPARISON: Prior mammogram dated August 25, 2024. FINDINGS: TISSUE DENSITY: The breast tissue is extremely dense which lowers the sensitivity of mammography. Bilateral Breast Mammographic Findings: The specimen contains the localization wire as well as the tissue clip marker. BI/Breast Biopsy Specimen IMPRESSION: OVERALL FINAL ASSESSMENT: BIRADS 1 NEGATIVE. RECOMMENDATION: Appropriate action should be taken. A letter with findings and recommendations will be mailed to the patient. Reading Location: [id number] CC: Dr. Nellie Rome MD; Dr. Jeremiah Franco MD Clinical Documentation Nurse: Signed Normal [facility] Breast imaging reportOrdered By: Mt Perdomo on 10-07-2024 Study report [facility] Services [address] [place], [place] [address] Breast Biopsy Specimen MR#: [id number] Acct: [id number] Name: NORI RODRIGUEZ Rep #: [id number] : 1955 F 69 From: Uri Perdomo MD PCP: Dr. Nellie Rome MD Status: [facility] Study:Breast Biopsy Specimen Date of Exam: 10/07/24 Exam# [id number] Ordering Dr: [facility] pr[facility] Franco MD EXAM: BREAST BIOPSY SPECIMEN N/A CLINICAL HISTORY: F, Age 69 y/o , TECHNIQUE: BREAST BIOPSY SPECIMEN COMPARISON: Prior mammogram dated August 25, 2024. FINDINGS: TISSUE DENSITY: The breast tissue is extremely dense which lowers the sensitivity of mammography. Bilateral Breast Mammographic Findings: The specimen contains the localization wire as well as the tissue clip marker. BI/Breast Biopsy Specimen IMPRESSION: OVERALL FINAL ASSESSMENT: BIRADS 1 NEGATIVE. RECOMMENDATION: Appropriate action should be taken. A letter with findings and recommendations will be mailed to the patient. Reading Location: [id number] CC: Dr. Nellie Rome MD; Dr. Jeremiah Franco MD ~ Clinical Documentation Nurse: Signed [facility] Discharge [facility]on 09-10 [facility] [address] [place] [address] Instructions for Home/Discharge Instructions 10/07/24 1537 MR#: [id number] Acct: [id number] Name: NORI RODRIGUEZ Rep #: [id number] : 1955 69 From: Jeremiah Franco MD PCP: Dr. Nellie [place] MD Status:REG [facility] Discharge Instructions Diet Discharge Diet: Light diet - advance as tolerated Activity Discharge Activity: Return to Normal Activity and May Shower May shower in (days): 2 Ice area for (Minutes): 30 Dressing / Incision Call your doctor if your incision/area has: Continuous Slow Oozing, Sudden Increased Bleeding, Increased Pain/ Swelling, Increased Redness, Foul Smelling Discharge and Swelling at the incision site Call your doctor if you observe: Fever of 101 or Higher Cleanse incision/area with: Soap Water Additional Dressing/Incision Instructions:: Wear postop bra for comfort and support; empty and record TANVIR drain daily Follow Up Care Please Follow Up With: Jeremiah Franco MD When: 1 week. Please call office to schedule appointment Test Results: Test results from this visit will be discussed in further detail at your follow-up appointment, if applicable. Discharge Plan Admission Primary Reason for Your Visit: Right breast lumpectomy Attending Provider: Jeremiah Franco Primary Care Provider: Nellie Rome Instructions Print Language: Rwandan Discharge Orders/Prescriptions Prescriptions: New oxycodone 5 mg capsule 5 mg PO Q8H PRN (Reason: pain) 4 Days Qty: 10 0RF Continued omega-3 fatty acids [Fish Oil Concentrate] 1,000 mg capsule 2,000 mg PO QDAY magnesium citrate 125 mg capsule 250 mg PO DAILY lisinopril-hydrochlorothiaz carmine 20-25 mg tablet 1 tab PO QDAY cholecalciferol (vitamin D3) 25 mcg (1,000 unit) capsule 25 mcg PO QDAY Multivitamin Women 50 Plus 8 mg iron-400 mcg-50 mcg tablet 1 tab PO QDAY acetaminophen [Tylenol] 325 mg Tablet 650 mg PO Q4H PRN (Reason: Pain) herbal sleep supplement 2 tab PO .nightly PRN (Reason: sleep aid) Referrals / Follow Up: Nellie Rome MD [Primary Care Provider] - Disposition Disposition (needs filled in before D/C Order can be placed): Home, Self Care 10/07/24 5812 Jeremiah Franco MD CC: Dr. Nellie [place] MD Signed Normal [facility] Frozen Section (charge)on Frozen Section (charge) Patient Age/Sex Location Account Attending Physician NORI RODRIGUEZ 69/F [facility] [id number] Dr. Jeremiah Franco MD Specimen: [id number] Received: 10/07/24 Status: COLLEEN Wanjolene Num: [id number] Spec Type: BREAST BX Subm Dr: Dr. Jeremiah Franco MD HEADER OPERATION: Stereo wire localization right lumpectomy, sentinel node, blue dye PRE-OP DIAGNOSIS: Invasive ductal carcinoma of breast TISSUE SUBMITTED: A- Right breast mass *long- lateral, short - superior*, B- Right breast sentinel node (blue, no count), C- Right axillary contents , D- Right breast new anterior margin , E- Right breast new superior margin, F- Right breast new lateral margin FROZEN SECTION DIAGNOSIS B. Right breast, sentinel lymph node, biopsy: Positive for macrometastasis. MS/mr 10/07/2024 MICROSCOPIC DIAGNOSIS A. Breast, right, mass, lumpectomy: - Invasive ductal carcinoma, Grade 3 (tubule 3, nuclear 3, mitosis 3), pT2a pN2a. - DCIS (ductal carcinoma in situ), extensive, high nuclear grade with comedo necrosis. - Lateral and anterior margins positive for DCIS. - Lateral margin < 1 mm to invasive ductal carcinoma. B. Breast, right, lymph node, sentinel, excision: - Positive for macrometastasis, 12 mm (03/12). C. Axilla, right, contents, excision: - Three of 5 lymph nodes positive for metastasis (3/5). - Extranodal tumor extension, 8 mm. D. Breast, right, new anterior, margin, excision: - DCIS (ductal carcinoma in situ) with comedo necrosis, 1 mm from the new surgical margin. E. Breast, right, new superior, margin, excision: - DCIS (ductal carcinoma in situ) less than 1 mm from the new surgical margin. F. Breast, right, new lateral, margin, excision: - Negative for in situ and invasive carcinoma. - Fibrocystic mastopathy. SYNOPTIC REPORT FOR INVASIVE BREAST CARCINOMA Specimen (P=partial, M=mastectomy):???P Laterality (R=right, L=left):???R Focality (U=unifocal, M=multifocal):???U Tumor size (cm):???2.9 cm Histologic type:???invasive ductal carcinoma, NST Histologic grade:???3 ? Tubule score (1-3):???3 ? Nuclear score (1-3):???3 ? Mitotic score (1-3):???3 Skin, nipple epidermis, skeletal muscle (I=involved, N=negative, Not applicable):???N Patient Age/Sex Location Account Attending Physician NORI RODRIGUEZ 69/F [facility] [facility] [id number] Dr. Jermeiah Franco MD Lymphovascular invasion (E=extensive, F=focal, N=not identified):???N Margins of main specimen (P=positive, N=negative):???N for invasive carcinoma Distance to closest margin of main specimen (mm):???< 1 mm Designation of closest margin of main specimen:???lateral Designation of other margins of main specimen Re-resection margin status (P=positive, N=negative, NA=not applicable):???N ??? DCIS (P=present, N=not identified):???P ? Nuclear grade:???high ? Comedo necrosis (P=present, N=not identified):???P ? Extensive intraductal component (P=present, N=not identified):???P ? Margins of main specimen (P=positive, N=negative):???P ? Distance to closest margin of main specimen (mm):???involving/at ? Designation of closest margin of main specimen:???lateral and anterior ? Designation of other margins of main specimen ? Longest span ? Re-resection margin status (P=positive, N=negative, NA=not applicable):???N (< 1 mm) ??? Regional lymph nodes: ? Total number of lymph nodes:???6 ? Number of sentinel lymph nodes:???1 ? Number with macrometastases:???4 ? Number with micrometastases:???0 ? Number with isolated tumor cells:???0 ? Size of largest meche metastasis (mm):???12 mm ? Size of extranodal extension (mm) (N=not identified):???8 mm ??? Estrogen receptor:???positive (95%, strong intensity) Progesterone receptor:???positive (60%, intermediate intensity) HER2 IHC:???negative (1+) HER2 FISH:???NA Ki67: 40% Specimen in which ER/MA/HER2 performed:???[id number] A pTNM:???pT2 pN2a Additional findings:???fibrocystic mastopathy Comment:???A radiograph of the breast specimen was performed to assist in the sectioning of the specimen and the image was reviewed and correlated with the histological findings. ??? The above synoptic report complies, in slightly ashli (more content not included)... [facility] Comment on above: Performed By: #### P FSC ####[facility] [address] [place], [address] Lymph Node Injection Onlyon 10-07-2024 Lymph Node Injection Only [facility] Imaging Services [address] [place] [address] Lymph Node Injection Only MR#: [id number] Acct: [id number] Name: NORI RODRIGUEZ Rep #: [id number] : 1955 F 69 From: [place] MD PCP: Dr. Nellie Rome MD Status: [facility] Study: Lymph Node Injection Only Date of Exam: Exam# [id number] Ordering Dr: Jeremiah Franco MD PROCEDURE: LYMPH NODE INJECTION ONLY 10/07/2024 REASON FOR EXAM: BREAST CANCER TECHNIQUE: LYMPH NODE INJECTION ONLY 564 uCi of Tilmanocept was injected subdermally at 1 cm above the right nipple for sentinel node imaging. RADIOPHARMACEUTICAL DOSE: 564 uCi COMPARISON: None FINDINGS: Subdermal injection of radiopharmaceutical for sentinel node imaging. NM/Lymph Node Injection Only IMPRESSION: Subdermal injection above the right nipple for sentinel node imaging. Reading Location: [facility] CC: Dr. Nellie Rome MD; Dr. Jeremiah Franco MD Clinical Documentation Nurse: Signed [facility] MR/POSTOP.ANE 10-07-2024 MR/POSTOP.[facility] Medical Records Department [address] [place] [address] Anesthesia Postop Eval I 10/07/24 1553 MR#: [id number] Acct: [id number] Name: NORI RODRIGUEZ Rep #: [id number] : 1955 69 From: Mike Walton CRNA PCP: Dr. Nellie Rome MD Status:[facility] Y Race: C Location: [place] [address] Anesthesia: Postop Eval I Current Vital Signs Temperature: 97.7 F Pulse Rate: 63 Blood Pressure: 143/71 Respiratory Rate: 20 Pulse Ox: 95 Oxygen Delivery Method: Room Air Assessment Airway patent: Yes Spontaneous unlabored respirations: Yes Mental status: Awake and Calm nausea: No Vomiting: No Anesthesia Complication: No Fluid Hydration Crystalloid volume administer (ml): 1,600 Total IV fluid infused: 1,600 Progress Note Anesthesia document: Postop Eval 1 completed: Yes 10/07/24 1554 Date Mike Walton ORTHOPTIST Cosigner Signature: Date CC: Signed [facility] [id number] 10-07-2024 [facility] Medical Records Department [address] [place] [address] Anesthesia Postop Eval II 10/07/242026 MR#: [id number] Acct: [id number] Name: NORI RODRIGUEZ Rep #: [id number] : 1955 69 From: Keaton Murphy MD PCP: Dr. Nellie Roem MD Status:[facility] Y Race: C Location: [facility] Anesthesia Postop Eval I Sum Postop Eval Completion status Anesthesia document: Postop Eval 1 completed: Yes Anesthesia Postop Eval I Summary Anesthesia Postop Eval I Summary: Anesthesia Postop Eval I: Assessment Summary Airway patent Yes 10/07/24 15:54 [email or web address] Spontaneous unlabored Yes 10/07/24 15:54 [email or web address] respirations Mental status Awake,Calm 10/07/24 15:54 [email or web address] nausea No 10/07/24 15:54 [email or web address] Vomiting No 10/07/24 15:54 [email or web address] Anesthesia Postop Eval I: Fluid Summary Crystalloid volume administer 1,600 10/07/24 15:54 [email or web address] (ml) Colloids volume administered ( ml) Blood Product volume administered (ml) Total IV fluid infused 1,600 10/07/24 15:54 [email or web address] Anesthesia Postop Eval I: Summary Notes Anesthesia Complication No 10/07/24 15:54 [email or web address] Anesthesia Complication Comment: Post-operative progress note Anesthesia: Postop Eval II Evaluation Mental status: Awake and Calm Pain Level: 2 nausea: No Vomiting: No Complications Anesthesia Complication: No 10/07/242026 Date Keaton Murphy MD Cosigner Signature: Date CC: Signed [facility] Operative Reporton Operative Report [facility] Medical Records Department [address] [place] [address] Operative Report 10/07/241936 MR#: [id number] Acct: [id number] Name: NORI RODRIGUEZ Rep #: [id number] : 1955 69 From: Jeremiah Franco MD PCP: Dr. Nellie Rome MD Status:[facility] Location: [facility] Oncology: [place] Requirements . Oncology surgical intervention performed: Axillary Lymph Node Dissection for Breast Cancer performed Axillary Lymph - Breast Cancer: Synoptic Portion: Element Response Options Operation performed with curative intent. Yes Resection was performed within the boundaries of the axillary vein, chest wall (serratus anterior), and latissimus dorsi. Yes Nerves identified and preserved during dissection (select all that apply) Long thoracic nerve; Thoracodorsal nerve; Branches of the intercostobrachial nerves; Level III nodes were removed. Yes Bascom Node Biopsy for Breast Cancer performed Bascom Node Bx - Breast Cancer: Synoptic Portion: Element Response Options Operation performed with curative intent. Yes Tracer(s) used to identify sentinel nodes in the upfront surgery (non-neoadjuvant) setting (select all that apply). Dye; Radioactive tracer Tracer(s) used to identify sentinel nodes in the neoadjuvant setting (select all that apply).N/A.] All nodes (colored or non-colored) present at the end of a dye-filled lymphatic channel were removed. Yes All significantly radioactive nodes were removed. N/A Lymphoseek did not work All palpably suspicious nodes were removed. [Yes Biopsy-proven positive nodes marked with clips prior to chemotherapy were identified and remove N/A.] Multi Select Codes Integumentary Integumentary CPT Codes: 03737 Partial mastectomy Respiratory/Cardiovascular Resp/Cardiovascular CPT Codes: 91015 Biopsy/removal lymph nodes Operative Report (Standard) Operative Information Date of Procedure: 10/07/24 Pre-Operative Diagnosis: Right breast invasive ductal cancer Post-Operative Diagnosis: Same Surgery/Procedure Performed: 1. Wire localized right breast lumpectomy 2. Right axillary sentinel lymph node biopsy 3. Right axillary node dissection control operator flow coat: Yes Application Specialist: Deepak Tran Tasks completed by blood donor unit assistant: Closing and Retracting Additional players assistant?: No Type of Anesthesia: General RN Documented Start/Stop Times: Operation Date: 10/07/24 12:30 Case Time Into Pre-Op 10/07/24 10:20 Anesthesia Start 10/07/24 13:01 Into Room 10/07/24 13:01 Out of Pre-Op 10/07/24 13:01 Procedure Start 10/07/24 13:32 Procedure End 10/07/24 15:42 Anesthesia End 10/07/24 15:47 Out of Room 10/07/24 15:47 Into Recovery 10/07/24 15:50 Out of Recovery 10/07/24 17:02 Into Phase II Recovery 10/07/24 17:03 Out of Phase II 10/07/24 18:45 Procedure Start Time: 13:32 Procedure Stop Time: 15:42 Select all DRAINS/GRAFTS/IMPLANTS that apply: None Estimated Blood Loss: 40 mL Specimen collected: Yes Description of specimen(s) removed: 1. Right breast lumpectomy 2. Right axillary sentinel lymph node x 1 3. Right axillary contents 4. New anterior margin 5. New lateral margin 6. New superior margin Description of surgery: The patient is a 69-year-old female recently discovered to have right breast cancer. We discussed her surgical options of lumpectomy with radiation versus mastectomy. She opted for the lumpectomy. We did discuss in the office that obtaining margins may be difficult given her mass behind the nipple in the central aspect of the breast. We discussed the details of the planned procedure including the risks benefits and alternatives. She wished to proceed. Earlier in the day she underwent injection of Lymphoseek for the sentinel lymph node mapping as well as placement of a stereotactic localization wire. Patient was then brought to the operating room today following informed consent. She is placed supine on the operative table with arms outstretched and arm boards. A general anesthesia was induced. The blue dye was injected into the right periareolar area and massaged into the breast for several minutes. The breast and axilla were then prepped and draped in the usual sterile manner. An ellipse incision was made around the entry point of the wire. Local anesthetic was injected prior to making the incision. Bovie electrocautery was then used to dissect down through subcutaneous tissues following the path of the wire as our guide. This did require a very generous lumpectomy based on the location of the mass in the central portion of the breast as well as the fact that the mass was greater than 2 cm in size. Once the lumpectomy specimen was removed, it was oriented such that a long stitch farias the lateral aspect and a short stitch farias the superior aspect. The specimen was then sent to pathology for gross examination for margins (more content not included)... [facility] Operative Report [facility] Medical Records Department [address] [place] [address] Operative Report 10/07/241923 MR#: [id number] Acct: [id number] Name: NORI RODRIGUEZ Rep #: [id number] : 1955 69 From: Jeremiah Franco MD PCP: Dr. Nellie Rome MD Status:[facility] Location: [facility] [place] [facility] Problems Associated Problem List Diagnoses (1) Invasive ductal carcinoma of breast: Procedures Integumentary [id number]: 33900 Perq dev breast 1st [facility] Operative Report (Standard) Operative Information Date of Procedure: 10/07/24 Pre-Operative Diagnosis: Right breast invasive ductal carcinoma Post-Operative Diagnosis: Same Surgery/Procedure Performed: Right breast stereotactic needle localization control operator flow coat: No Type of Anesthesia: Local RN Documented Start/Stop Times: Operation Date: 10/07/24 12:30 Case Time Into Pre-Op 10/07/24 10:20 Anesthesia Start 10/07/24 13:01 Into Room 10/07/24 13:01 Out of Pre-Op 10/07/24 13:01 Procedure Start 10/07/24 13:32 Procedure End 10/07/24 15:42 Anesthesia End 10/07/24 15:47 Out of Room 10/07/24 15:47 Into Recovery 10/07/24 15:50 Out of Recovery 10/07/24 17:02 Into Phase II Recovery 10/07/24 17:03 Out of Phase II 10/07/24 18:45 Procedure Start Time: 12:15 Procedure Stop Time: 12:30 Select all DRAINS/GRAFTS/IMPLANTS that apply: Prosthetic device Prosthetic device details: Localization wire Estimated Blood Loss: 0 Specimen collected: No Description of surgery: The patient is a 69-year-old female recently discovered to have right breast invasive ductal carcinoma. We discussed lumpectomy versus mastectomy and she decided to pursue a lumpectomy. In order to perform the lumpectomy a stereotactic wire placement was recommended. We discussed the details of the planned procedure and she wished to proceed. She was brought to the mammography suite today. The patient was then laid prone on the stereotactic table. The right breast was suspended through the aperture and the table. The breast was then placed in compression. Multiple views were taken of the breast in order to locate the clip and the lesion. Once this was performed the coordinates were entered. The skin of the breast was prepped and draped in the usual manner. Local anesthetic was infiltrated. The needle and wired were inserted to the desired depth. Multiple images were obtained to confirm good positioning of the wire. Once this was in place the wire was held in place while the needle was retracted. The wire was then trimmed. The patient tolerated this well. Post wire placement mammograms were performed and showed good positioning. Dressing was applied and the patient was returned to preoperative area in preparation for surgery Surgical Findings: See procedure note Complications Complications: No Admit VTE Documentation VTE Present on Admission: No VTE Mechan Device Prophylaxis: None VTE Pharm Prophylaxis ordered?: No Reason prophylaxis not ordered: Treatment Not Indicated 10/07/241936 Cosigner Signature (if applicable): CC: Dr. Nellie Rome MD; Dr. Jeremiah Franco MD Signed [facility] MR/Jose 10-02-2024 /[facility] [facility] Medical Records Department [address] [place] [address] PAT - Anesthesia 10/02/24 1418 MR#: [id number] Acct: [id number] Name: NORI RODRIGUEZ Rep #: [id number] : 1955 69 From: Pardeep Shannon MD PCP: Dr. Nellie Rome MD Status:PRE [facility] Y Race: C Location: [facility] [facility] Pre-Assessment Diagnosis/Proposed Procedure Planned Operative Procedure(s): RIGHT BREAST STEROWIRE LOCALIZED LUMPECTOMY WITH SENTIEL LYMPH NODE BIOPSY, POSSIBLE NODE DISECTION Anesthesia History Anesthesia History - premium cancellation clerk: Anesthesia History - premium cancellation clerk Hx Hospitalization No 10/02/24 09:28 Any Problems With Anesthesia Yes: VERY SENSITIVE TO MEDS 10/02/24 09:28 , NAUSEA Cholinesterase deficiency No 10/02/24 09:28 You/Your Family Experience No 10/02/24 09:28 fever (hyperthermia) with Relationship Recent Exposure to Contagious No 10/11/21 06:05 Disease Does patient have nerve No 10/02/24 09:28 stimulator Patient instructed to have device shut off --Does patient have Pacemaker or ICD? When Was Last Pacemaker Check QUESTION #4 FULL TEXT: You/Your Family Experience fever (hyperthermia) with Anesthesia Last Oral Intake Last Oral intake: Last Oral Intake NPO since Meds taken in AM with sips of water? Meds patient instructed to take am of surgery PONV PONV - premium cancellation clerk: PONV - premium cancellation clerk Female Yes 10/02/24 09:28 HX of Motion Sickness Yes 10/02/24 09:28 HX of N/V After Surgery Yes 10/02/24 09:28 Non-Smoker Yes 10/02/24 09:28 Duration of Surgery greater Yes 10/02/24 09:28 than 60 minutes Number of Risk Factors 5 10/02/24 09:28 PONV Score Severe Risk 10/02/24 09:28 Height Weight Height Weight: Anesthesia: Height Weight Height 5 ft 3 in 09/26/24 13:25 Respiratory Assessment Respiratory Assessment - premium cancellation clerk: Respiratory Tract Infection Hx - premium cancellation clerk Hx Respiratory Tract Infection No 10/02/24 09:28 STOP Sleep Apnea STOP Sleep Apnea - premium cancellation clerk: STOP Sleep Apnea - premium cancellation clerk Hx Hypertension Yes: CONTROLLED WITH MEDS 10/02/24 09:28 Hx Sleep Apnea Yes 10/02/24 09:28 CPAP Yes 10/02/24 09:28 BIPAP No 10/02/24 09:28 Do you snore loudly (louder than talking or can be heard Do you often feel tired/ fatigued/ sleepy during daytime? Has anyone observed you stop breathing during sleep? STOP Results Positive 10/02/24 09:28 QUESTION #5 FULL TEXT : Do you snore loudly (louder than talking or can be heard through closed doors)? 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 Specify any problems Hx of Preganancy in last 3 No 10/02/24 09:28 Months Nurse Filling Out Transfusion [email or web address] 10/02/24 09:28 Questions: Date: 10/02/24 10/02/24 09:28 Time: 09:33 10/02/24 09:28 Patient unable to answer at this time (ie. confused, unrespo /Reproduction History /Reproductive History - premium cancellation clerk: /Reproductive Hx- premium cancellation clerk Hx Now Gestational Age (in weeks): EDC: Hx Hx Para Hx Section SAB No 10/04/21 11:01 [facility] Medical History (Updated 10/02/24 @ 09:40 by Daniel Longo) History of echocardiogram Fibromyalgia Abnormal ultrasound of breast Abnormal mammogram Mass Cancer Anemia Syncope Stool color black Stool bloody Gastric reflux Chest pain Abdominal pain Diverticulitis Wears glasses Anxiety Thyroid disease Arthritis History of renal disease Back pain History of diverticulitis Non-smoker CPAP (continuous positive airway pressure) dependence Shortness of breath on exertion History of pain when walking Nodular thyroid disease Hemorrhoids Sleep apnea Hypertension Home Medications ???Medication ???Instructions ???Recorded ???Last Taken ???Type omega-3 fatty acids 1,000 mg 2,000 mg PO QDAY SUPPLEMENT 02/08/21 History capsule (Fish Oil Concentrate) acetaminophen 325 mg tablet 650 mg PO Q4H (more content not included)... [facility] Surgery Visit Reporton 10-01 Surgery Visit Report [facility] [address] [place] [address] OFFICE VISIT Date of Service: 10/01/24 MR#: [id number] Acct: [id number] Name: NORI RODRIGUEZ Rep #: [id number] : 1955 Provider: Dr. Jeremiah almodovar MD Age/Sex: 69/F Location: [facility] Status: Signed Intake Vital Signs 09/26/24 13:25 Height 5 ft 3 in Weight: 208 lb BMI 36.8 BP 149/78 H Blood Pressure Location Rt brachial Position Sitting Respiration 18 Pulse 70 Pulse Source Monitor Pulse Oximetry (%) 97 Oxygen Delivery Method room air Intake Visit Reasons: DISCUSS BREAST SX Chief Complaint: discuss breast surgery Is patient in pain?: Yes (has chronic knee and hip pain. ) Allergies acetazolamide (From Diamox Sequels) Adverse Reaction (Verified 10/01/24 13:47) DEPRESSION duloxetine (From Cymbalta) Adverse Reaction (Verified 10/01/24 13:47) DEPRESSION tetracycline Adverse Reaction (Verified 10/01/24 13:47) DEPRESSION Medications ???Medication ???Instructions ???Recorded ???Confirmed ???Type omega-3 fatty acids 1,000 mg 2,000 mg PO QDAY SUPPLEMENT 10/01/24 History capsule (Fish Oil Concentrate) acetaminophen 325 mg tablet 650 mg PO Q4H PRN Pain 02/02/21 History (Tylenol) magnesium citrate 125 mg capsule 250 mg PO DAILY 05/23/23 10/01/24 History lisinopril 20 1 tab PO QDAY 05/28/24 10/01/24 Hi story mg-hydrochlorothiazide 25 mg tablet cholecalciferol (vitamin D3) 25 25 mcg PO QDAY 09/26/24 10/01/24 H istory mcg (1,000 unit) capsule ljjyplfo-hzwi-wzma 8 mg-folic 400 1 tab PO QDAY 09/26/24 10/01/24 H istory mcg-K 50 mcg-lutein 300 mcg tablet (Multivitamin Women 50 Plus) Have you fallen in the past year?: No PFSH Medical History Abnormal ultrasound of breast Abnormal mammogram Mass Cancer Anemia Syncope Stool color black [...] house Smoking Status: Never smoker alcohol intake: never substance use type: does not use HPI HPI HPI: Patient is a 69-year-old female with a recently discovered right breast cancer. I saw the patient last week to discuss her surgical options. I gave her a week to think over her options and she returns today with her response. She states that she would like to proceed with a lumpectomy sentinel lymph node biopsy. She did describe some skin issue near the biopsy site. She denied any bleeding or drainage but noticed that the site had a scab. She picked the scab off and was left with an area of raw tissue ROS General General: Yes weight change and breast cancer; No appetite, fatigue, colon cancer or weakness HEENT HEENT: No difficulty swallowing, eye injury, eye surgery, swollen glands or hoarseness Endo Endocrine: Yes thyroid disease; No diabetes mellitus, thyroid cancer, Hair loss, heat intolerance or cold intolerance Skin Skin: No rash or changing moles Musc Musculoskeletal: Yes back problems and arthritis; No rheumatoid arthritis, gout or joint pain Cardio Cardiovascular: Yes high blood pressure; No murmur, pacemaker, heart disease, atrial fibrillation, heart attack, heart stent, palpitations, shortness of breath with exertion or chest pain Psych Psychiatric: No depression, anxiety or hearing voices Resp Respiratory: No shortness of breath, Yes sleep apnea, No cough, No COPD, No asthma, No emphysema and No wheezing Gastro Gastrointestinal: No abdominal pain, No nausea or vomiting, No diarrhea, No constipation, No blood in stool, No acid reflux, Yes hemorrhoids, No ulcers, No gallbladder problem and No black,tarry stools Jaxon Hematologic: No blood thinners, No blood disorders, No bleeding, No anemia and No blood clots Neuro Neurologic: No system reviewed and no additional complaints, except as documented, No as per HPI, No abnormal gait, No abnorma (more content not included)... [facility] Surgery Visit Reporton 09-26 Surgery Visit Report [facility] [address] [place] [address] OFFICE VISIT Date of Service: 09/26/24 MR#: [id number] Acct: [id number] Name: NORI RODRIGUEZ Rep #: [id number] : 1955 Provider: Dr. Jeremiah almodovar MD Age/Sex: 69/F Location: [facility] Status: Signed Intake Vital Signs 09/15/24 12:45 09/26/24 13:25 Height 5 ft 3 in 5 ft 3 in Weight: 210 lb 8 oz 208 lb BMI 37.3 36.8 BP 147/76 H 149/78 H Blood Pressure Location Rt brachial Rt brachial Position Sitting Sitting Respiration 18 18 Pulse 72 70 Pulse Source Monitor Monitor Temp 97.2 F L Temp Source Temporal Pulse Oximetry (%) 97 97 Oxygen Delivery Method room air room air Intake Visit Reasons: DISCUSS BREAST SX Chief Complaint: discuss breast surgery Is patient in pain?: No Allergies acetazolamide (From Diamox Sequels) Adverse Reaction (Verified 09/26/24 13:25) DEPRESSION duloxetine (From Cymbalta) Adverse Reaction (Verified 09/26/24 13:25) DEPRESSION tetracycline Adverse Reaction (Verified 09/26/24 13:25) DEPRESSION Medications ???Medication ???Instructions ???Recorded ???Confirmed ???Type omega-3 fatty acids 1,000 mg 2,000 mg PO QDAY SUPPLEMENT 09/26/24 History capsule (Fish Oil Concentrate) acetaminophen 325 mg tablet 650 mg PO Q4H PRN Pain 02/02/21 History (Tylenol) magnesium citrate 125 mg capsule 250 mg PO DAILY 05/23/23 09/26/24 History lisinopril 20 1 tab PO QDAY 05/28/24 09/26/24 Hi story mg-hydrochlorothiazide 25 mg tablet cholecalciferol (vitamin D3) 25 25 mcg PO QDAY 09/26/24 09/26/24 H istory mcg (1,000 unit) capsule edmqshno-ndmy-nfjw 8 mg-folic 400 1 tab PO QDAY 09/26/24 09/26/24 H istory mcg-K 50 mcg-lutein 300 mcg tablet (Multivitamin Women 50 Plus) Have you fallen in the past year?: No PFSH Medical History (Updated 09/26/24 @ 13:24 by Margarita Bowles) Abnormal ultrasound of breast Abnormal mammogram Mass Cancer Anemia Syncope Stool color black [...] house Smoking Status: Never smoker alcohol intake: never substance use type: does not use HPI HPI HPI: The patient is a 69-year-old female who is following up today to discuss results of a right breast ultrasound-guided core biopsy performed in the office recently. At that time a 2 cm mass in the retroareolar region was biopsied along with a potentially suspicious lymph node in the right axilla. The biopsy of the lymph node was unremarkable. However, the right breast mass was positive for invasive breast cancer. This was ER/MA positive. I did call her with results once they became available and recommend that we meet today to discuss her surgical options further. ROS General General: Yes weight change and breast cancer; No appetite, fatigue, colon cancer or weakness HEENT HEENT: No difficulty swallowing, eye injury, eye surgery, swollen glands or hoarseness Endo Endocrine: Yes thyroid disease; No diabetes mellitus, thyroid cancer, Hair loss, heat intolerance or cold intolerance Skin Skin: No rash or changing moles Musc Musculoskeletal: Yes back problems and arthritis; No rheumatoid arthritis, gout or joint pain Cardio Cardiovascular: Yes high blood pressure; No murmur, pacemaker, heart disease, atrial fibrillation, heart attack, heart stent, palpitations, shortness of breath with exertion or chest pain Psych Psychiatric: No depression, anxiety or hearing voices Resp Respiratory: No shortness of breath, Yes sleep apnea, No cough, No COPD, No asthma, No emphysema and No wheezing Gastro Gastrointestinal: No abdominal pain, No nausea or vomiting, No diarrhea, No constipation, No blood in stool, No acid reflux, Yes hemorrhoids, No ulcers, No gallbladder problem and No black,tarry stools Jaxon Hematologic: No blood thinners, No blood disorders, No bleeding, No anemi (more content not included)... Normal [facility] SURG PATH REQUESTon 09-23-19 Case Report Normal [facility] Comment on above: Result Comment: Surg ical Pathology Report Case: [id number] Authorizing Provider: Shayla Lobo MD Collected: 09/22/2024 02:51 PM Ordering Location: [facility] Received: 09/22/2024 02:46 PM [place] Pathologist: Jessee Mac MD, PhD Specimen: SURG PATH, [facility] [id number]; A) Breast, right, mass, biopsy; Molecular testing Performed By: #### S URGP #### [facility] (DEFAULT) [address] [address] Clinical History Normal [facility] Comment on above: Result Comment: Rece ived is a request from Dr. Shayla Lobo at [facility] for molecular testing on case [id number]. Performed By: #### S URGP #### [facility] (DEFAULT) [address] [address] Gross Description [facility] Comment on above: Result Comment: The following material(s) are received from [facility], [address] [place] [address], with an identifying Surgical Pathology Report: 1 H&E, 1 non-H&E (HER2) and 2 unstained (A1) slides labeled [id number], which are submitted to [facility] for HER2 FISH testing. Outside materials are returned in 60 days under separate cover with our number recorded on them. Grosser for this case was: Cortney Patten Performed By: #### S URGP #### [facility] (DEFAULT) [address] [address] Microscopic Description Tissue was assessed by a molecular pathologist to select areas for analysis and to correlate immunostaining with histology. No morphologic assessment was requested. [facility] Comment on above: Performed By: #### S URGP #### [facility] (DEFAULT) [address] [address] Pathologic Diagnosis [facility] Comment on above: Result Comment: Outs carmine Slides [id number] (09/15/24) A. Breast, right, mass, biopsy: HER2 FISH: Not amplified at 1222 EDT Performed By: #### S URGP #### [facility] (DEFAULT) [address] [address] Professional Interpretation Performed at: [facility] Comment on above: Result Comment: [facility] For Immediate Release to Patient's [facility]? Yes [address] [address] Performed By: #### S URGP #### [facility] (DEFAULT) [address] [place] [address] Surgical pathology reportOrd ered By: Shayla Lobo on 09-18-2024 Surgical pathology study [facility] Immunohistochemical Stainson 09-15-2024 Immunohistochemical Stains Patient Age/Sex Location Account Attending Physician NORI RODRIGUEZ 69/F LABSPEC [id number] Dr. Jeremiah Franco MD Specimen: [id number] Received: 09/15/24 Status: COLLEEN Ed Num: [id number] Spec Type: BREAST BX Subm Dr: Dr. Jeremiah Franco MD HEADER OPERATION: Right breast biopsy x1, axillary lymph node biopsy PRE-OP DIAGNOSIS: Right breast masses and enlarged lymph nodes TISSUE SUBMITTED: A- Right breast mass, B- Right axillary lymph node Ischemic Time: Unknown Fixation Time: 6 hours, 42 minutes MICROSCOPIC DIAGNOSIS A. Breast, right, mass, biopsy: - Invasive ductal carcinoma, Grade 2 (tubule 3, nuclear 2, mitosis 1), at least 0.7 cm (see note). - Ductal carcinoma in situ (DCIS), low nuclear grade with focal microcalcification, negative for necrosis, span of 0.2 cm. - ER: positive (100%, strong intensity). - MA: positive (75% invasive/100% in situ, variable intermediate-strong intensity). - RAM3FYS: equivocal (2+) - [id number]: pending Note: IHC for Ecadherin, CK5/6, and p40 support the histologic impression. B. Lymph node, right, axilla, core biopsy: - No metastatic carcinoma seen. MICROSCOPIC DESCRIPTION Slides are reviewed. GROSS DESCRIPTION Received in 2 formalin containers labeled with the patient's name and date of . Designated as: A. R breast mass are 3 lennon-pink to yellow soft tissue cores, 1.1 cm to 1.7 cm in length by 0.1 cm in diameter. Entirely submitted in 1 cassette. Cold ischemic time: UnknownFormalin fixation time: 6 hours, 42 minutesB. R axillary lymph node are 2 lennon-pink to yellow soft tissue cores, 0.8 cm and 1.5 cm in length by 0.1 cm in diameter. Entirely submitted in 1 cassette. MO 09/15/2024 CPT:94407l2,53323,49534g3,8 8360x3 Patient Age/Sex Location Account Attending Physician NORI RODRIGUEZ 69/F LABSPEC [id number] Dr. Jeremiah Franco MD ADDENDUM Addendum 1 Entered: 09/29/24-1012 This addendum is added to incorporate an outside pathology consultation report. The case was examined at [facility] by Dr. Mac (#[id number]) and the following diagnosis was rendered. A. Breast, right, mass, biopsy: HER2 FISH: Not amplified. HER2 SCORE REPORT: HER2 SCORE: NEGATIVE HER2 / CEP17 RATIO: 1.4 HER2 COPY NUMBER / CELL: 4.4 Please see complete above mentioned consultation report in EMR Addendum Signed (signature on file) Dr. Shayla Lobo MD 09/29/24 1217 Patient Age/Sex Location Account Attending Physician NORI RODRIGUEZ 69/F LABSPEC [id number] Dr. Jeremiah Franco MD Signed (signature on file) Dr. Shayla Lobo MD 09/18/24 1556 Normal [facility] Comment on above: Performed By: #### P MAXIMUS #### [facility] [address] [place], [address] Surgery Visit Reporton 09-15 Surgery Visit Report [facility] [address] [place] [address] OFFICE VISIT Date of Service: 09/15/24 MR#: [id number] Acct: [id number] Name: NORI RODRIGUEZ Rep #: [id number] : 1955 Provider: Dr. Jeremiah almodovar MD Age/Sex: 69/F Location: [facility] Status: Signed Intake Vital Signs 05/28/24 08:06 09/15/24 12:45 Height 5 ft 2 in 5 ft 3 in Weight: 210 lb 8 oz BMI 37.3 BP 147/76 H Blood Pressure Location Rt brachial Position Sitting Respiration 18 Pulse 72 Pulse Source Monitor Temp 97.2 F L Temp Source Temporal Pulse Oximetry (%) 97 Oxygen Delivery Method room air Intake Visit Reasons: BIRADS 5 Chief Complaint: BIRADS 5 Accompanied by: Is patient in pain?: No Allergies acetazolamide (From Diamox Sequels) Adverse Reaction (Verified 09/15/24 12:46) DEPRESSION duloxetine (From Cymbalta) Adverse Reaction (Verified 09/15/24 12:46) DEPRESSION tetracycline Adverse Reaction (Verified 09/15/24 12:46) DEPRESSION Medications ???Medication ???Instructions ???Recorded ???Confirmed ???Type omega-3 fatty acids 1,000 mg 2,000 mg PO QDAY SUPPLEMENT 09/15/24 History capsule (Fish Oil Concentrate) acetaminophen 325 mg tablet 650 mg PO Q4H PRN Pain 02/02/21 History (Tylenol) magnesium citrate 125 mg capsule 250 mg PO DAILY 05/23/23 09/15/24 History lisinopril 20 1 tab PO QDAY 05/28/24 09/15/24 Hi story mg-hydrochlorothiazide 25 mg tablet Have you fallen in the past year?: No PFSH Medical History (Updated 09/15/24 @ 12:45 by Shirley Corrigan LPN) Abnormal ultrasound of breast Abnormal mammogram Mass Cancer Anemia Syncope Stool color black [...] house Smoking Status: Never smoker alcohol intake: never substance use type: does not use HPI HPI HPI: The patient is a 69-year-old female who presents today with an abnormal right breast mammogram and ultrasound. This showed a suspicious 2 cm abnormality in the right retroareolar region. There are also 3 suspicious lymph nodes in the right axilla. She presents today for further evaluation and possible biopsy. She denies any new breast issues or complaints. No family history of breast cancer. ROS General General: Yes weight change; No appetite, fatigue, colon cancer, breast cancer or weakness HEENT HEENT: No difficulty swallowing, eye injury, eye surgery, swollen glands or hoarseness Endo Endocrine: No thyroid disease, diabetes mellitus, thyroid cancer, Hair loss, heat intolerance or cold intolerance Skin Skin: No rash or changing moles Breast Breast: Yes abnormal mammogram and abnormal US; No left breast lump, right breast lump, nipple discharge, breast pain or breast enlargement Musc Musculoskeletal: Yes back problems and arthritis; No rheumatoid arthritis, gout or joint pain Cardio Cardiovascular: Yes high blood pressure; No murmur, pacemaker, heart disease, atrial fibrillation, heart attack, heart stent, palpitations, shortness of breath with exertion or chest pain Psych Psychiatric: No depression, anxiety or hearing voices Resp Respiratory: No shortness of breath, Yes sleep apnea, No cough, No COPD, No asthma, No emphysema and No wheezing Gastro Gastrointestinal: No abdominal pain, No nausea or vomiting, No diarrhea, No constipation, No blood in stool, No acid reflux, Yes hemorrhoids, No ulcers, No gallbladder problem and No black,tarry stools Jaxon Hematologic: No blood thinners, No blood disorders, No bleeding, No anemia and No blood clots Neuro Neurologic: No numbness, No tingling and No weakness Exam Const General: cooperative and comfortable HENMT Head: normal to inspection, normocephalic and atraumatic Eyes General: appearance normal, both eyes and all related structures Neck Neck: normal visual inspection Chest Other: Examina (more content not included)... Normal [facility] Breast Complete Unilateralon 08-29-2024 Breast Complete Unilateral [facility] [address] [place], [place] [id number] Breast Complete Unilateral MR#: [id number] Acct: [id number] Name: NORI RODRIGUEZ Rep #: [id number] : 1955 F 69 From: Bre Thorne MD PCP: Dr. Nellie Rome MD Status: [facility] CLI Study: Breast Complete Unilateral Date of Exam: 08/29 Exam# [id number] Ordering Dr: Nellie Rome MD PROCEDURE: BREAST COMPLETE UNILATERAL 08/29/2024 REASON FOR EXAM: 69-year-old female presents for follow-up of the right breast findings seen on examination of 08/25/2024. No family history of breast cancer. TECHNIQUE: Targeted right breast ultrasound was performed. COMPARISON: Mammogram 08/25/2024 and 06/05/2023 FINDINGS: Complete right breast ultrasound was performed and of the right axillary region. Follow-up examination performed for the right breast mass seen on examination of 08/25/2024. On the present examination, there is an irregular hypoechoic mass with posterior shadowing in the retroareolar right breast measuring 2.2 x 2.1 x 1.7 cm. There is internal vascular flow. Also, there is a cyst versus dilated duct seen in the retroareolar 9 o'clock right breast, measuring 1.5 x 1.4 x 1.2 cm. There are additional dilated ducts in the retroareolar right breast. There are 3 prominent right axillary lymph nodes, 1 of which demonstrates focal cortical thickening. The right axillary lymph node that demonstrates focal cortical thickening measures 2.2 x 1.2 x 1.0 cm with cortical thickness up to 0.4 cm. US/Breast Complete Unilateral IMPRESSION: 1.Suspicious retroareolar right breast mass. Recommend tissue sampling with ultrasound-guided core needle biopsy. 2. Suspicious right axillary lymph node with focal cortical bulge. Recommend tissue sampling with ultrasound-guided core needle biopsy. Follow-up code: Ultrasound-guided core needle biopsy is recommended. BI-RADS 5: HIGHLY SUGGESTIVE OF MALIGNANCY Reading Location: [facility] CC: Dr. Nellie Rome MD Clinical Documentation Nurse: Signed Normal [facility] Breast imaging reportOrdered By: Mt Perdomo on 08-25-2024 Study report [facility] [address] [place] [address] SCRN MAMM (CAD)W/URI BILAT MR#: [id number] Acct: [id number] Name: NORI RODRIGUEZ Rep #: [id number] : 1955 F 69 From: Uri Perdomo MD PCP: Dr. Nellie Rome MD Status: [facility] Study:SCRN MAMM (CAD)W/URI BILAT Date of Exa m: 08/25/24 Exam# [id number] Ordering Dr: Caty Rome MD EXAM: SCRN MAMM (CAD)W/URI BILAT DATE: 08/25/2024 CLINICAL HISTORY: F, Age 69 y/o , SCREENING New palpable lump in the right breast with retraction of the nipple. Remote history of right excisional breast biopsy. BREAST CANCER RISK ASSESSMENT: Not assessed. TECHNIQUE: Bilateral screening digital breast tomosynthesis with 2D and 3D images. Computeraided detection. COMPARISON: Prior exam(s) dated June 05, 2023.. FINDINGS: TISSUE DENSITY: The breast tissue is heterogeneously dense, which may obscure small masses. Bilateral Breast Mammographic Findings: Since prior study, there is a new 1.6 cm 1.9 cm spiculated nodule in the retroareolar region of the right breast at the mid level with retraction of the right areolar complex. Correlation with ultrasound recommended. BI/SCRN MAMM (CAD)W/URI BILAT IMPRESSION: OVERALL FINAL ASSESSMENT: BIRADS 0 Incomplete: Need additional imaging evaluation and/or prior mammograms for comparison. RECOMMENDATION: Sonographic follow-up. A letter with findings and recommendations will be mailed to the patient. Reading Location: [place] [address] CC: Dr. Nellie Rome MD ~ Clinical Documentation Nurse: Signed [facility] SCRN MAMM (CAD)W/URI BILATo n 08-25-2024 SCRN MAMM (CAD)W/URI BILAT [facility] Imaging Services [address] [place] [address] SCRN MAMM (CAD)W/URI BILAT MR#: [id number] Acct: [id number] Name: NORI RODRIGUEZ Rep #: [id number] : 1955 F 69 From: Mt wade MD PCP: Dr. Nellie Rome MD Status: REG CLI Study: SCRN MAMM (CAD)W/URI BILAT Date of Exam: 08/10 09/03 Exam# [id number] Ordering Dr: Nellie Rome MD EXAM: SCRN MAMM (CAD)W/URI BILAT DATE: 08/25/2024 CLINICAL HISTORY: F, Age 69 y/o , SCREENING New palpable lump in the right breast with retraction of the nipple. Remote history of right excisional breast biopsy. BREAST CANCER RISK ASSESSMENT: Not assessed. TECHNIQUE: Bilateral screening digital breast tomosynthesis with 2D and 3D images. Computer aided detection. COMPARISON: Prior exam(s) dated June 05, 2023.. FINDINGS: TISSUE DENSITY: The breast tissue is heterogeneously dense, which may obscure small masses. Bilateral Breast Mammographic Findings: Since prior study, there is a new 1.6 cm 1.9 cm spiculated nodule in the retroareolar region of the right breast at the mid level with retraction of the right areolar complex. Correlation with ultrasound recommended. BI/SCRN MAMM (CAD)W/URI BILAT IMPRESSION: OVERALL FINAL ASSESSMENT: BIRADS 0 Incomplete: Need additional imaging evaluation and/or prior mammograms for comparison. RECOMMENDATION: Sonographic follow-up. A letter with findings and recommendations will be mailed to the patient. Reading Location: [facility] CC: Dr. Nellie Rome MD Clinical Documentation Nurse: Signed Normal [facility] Abdomen/Pelvis WITH Contrast on 06-23-2024 Abdomen/Pelvis WITH Contrast [facility] Services [address] [place] [address] Abdomen/Pelvis WITH Contrast MR#: [id number] Acct: [id number] Name: NORI RODRIGUEZ Rep #: [id number] : 1955 F 69 From: Mt wade MD PCP: Dr. Nellie Rome MD Status: REG CLI Study: Abdomen/Pelvis WITH Contrast Date of Exam: Exam# [id number] Ordering Dr: Oswaldo Jones MD PROCEDURE: ABDOMEN/PELVIS [...] No acute abnormality is seen. Reading Location: [facility] CC: Dr. Nellie Rome MD; Dr. Oswaldo Jones MD Clinical Documentation Nurse: Signed Normal [facility] CREATININE FINGERSTICKon Creatinine [Mass/Vol] 1.1 mg/dL High 0.55-1.02 [facility] Comment on above: Performed By: #### L 9100.0200 ####[facility] [address] [place], [place], [id number] GFR/1.73 sq M.predicted among non-blacks MDRD (S/P/Bld) [Vol rate/Area] 55.0000 mL/min/{1.73_m2} Low >60 [facility] Comment on above: Performed By: #### L 9100.0200 ####[facility] [address] [place], [place], [address] Creatinine measurement at be dsideOrdered By: Oswaldo Jones on 06-23-2024 Creatinine [Mass/Vol] 1.1 mg/dL High 0.55-1.02 [facility] EGFROrdered By: Oswaldo Jones on 06-23-2024 GFR/1.73 sq M.predicted among non-blacks MDRD (S/P/Bld) [Vol rate/Area] 55.0000 mL/min/{1.73_m2} Low >60 [facility] Pulmonary Visit Reporton Pulmonary Visit Report [facility] [place] 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 Normal [facility] High density lipoprotein (HD L) measurementOrdered By: Nellie Rome on 03-07-2024 Cholesterol in HDL [Mass/Vol] 64 mg/dL >40 [facility] Comment on above: The drugs N-Acetylcy steine and Metamizole may falsely depress this assay. Reference Range HDL <40 mg/dL Low HDL Cholesterol HDL >or= 60 mg/dL High HDL Cholesterol Lipid Profileon 03-07-2024 Cholesterol [Mass/Vol] 202 mg/dL High 200 [facility] Comment on above: Result Comment: <200 mg/dL Desirable 200-240 mg/dL Borderline >240 mg/dL High Risk Performed By: #### L 500.4100 ####[facility] [address] [place], [address] Cholesterol in HDL [Mass/Vol] 64 mg/dL Normal [facility] Comment on above: Result Comment: The drugs N-Acetylcysteine and Metamizole may falsely depress this assay. Reference Range HDL <40 mg/dL Low HDL Cholesterol HDL >or= 60 mg/dL High HDL Cholesterol Performed By: #### L 500.4100 ####[facility] [address] [place], [address] Cholesterol in LDL [Mass/Vol] 105 mg/dL Normal 0-130 [facility] Comment on above: Performed By: #### L 500.4100 ####[facility] [address] [place], [address] Cholesterol in VLDL [Mass/Vol] 33 mg/dL Normal 5-40 [facility] Comment on above: Performed By: #### L 500.4100 ####[facility] [address] [place], [address] Triglyceride [Mass/Vol] 165 mg/dL Normal [facility] Comment on above: Result Comment: The drugs N-Acetylcysteine and Metamizole may falsely depress this assay. Serum Triglycerides Reference Interval Normal <150 mg/dL Borderline high 150 - 199 mg/dL High 200 - 499 mg/dL Very High > or = 500 mg/dL Performed By: #### L 500.4100 ####[facility] [address] [place], [address] Low density lipoprotein (LDL ) cholesterol measurementOrdered By: Nellie Rome on 03-07-2024 Cholesterol in LDL [Mass/Vol] 105 mg/dL 0-130 [facility] Serum or plasma cholesterol measurement (mass/volume)Ordered By: Nellie Rome on 03-07-2024 Cholesterol [Mass/Vol] 202 mg/dL High <200 [facility] Comment on above: <200 mg/dL Desirable 200-240 mg/dL Borderline >240 mg/dL High Risk Triglycerides measurementOrd ered By: Nellie Rome on 03-07-2024 Triglyceride [Mass/Vol] 165 mg/dL <199 [facility] Comment on above: The drugs N-Acetylcy steine and Metamizole may falsely depress this assay.Serum Triglycerides Reference Interval Normal <150 mg/dL Borderline high 150 - 199 mg/dL High 200 - 499 mg/dL Very High > or = 500 mg/dL Very low density lipoprotein (VLDL) cholesterol measurementOrdered By: Nellie Rome on 03-07-2024 VLDL Cholesterol 33 mg/dL 5-40 [facility] Comprehensive Metabolic Prof ilon 02-19-2024 Albumin [Mass/Vol] 3.3 g/dL Normal 3.2-5.0 [facility] Comment on above: Order Comment: PT WI LL COME BACK FOR LIPID WAS NOT FASTING.RANGLE Performed By: #### L 501.9520, L501.9985, L506.1000, L500.4050 ####[facility] [address], [address] Albumin/Globulin [Mass ratio] 0.9 {ratio} Normal 0.9-2.4 [facility] Comment on above: Order Comment: PT WI LL COME BACK FOR LIPID WAS NOT FASTING.RANGLE Performed By: #### L 501.9520, L501.9985, L506.1000, L500.4050 ####[facility] [address] [place], [address] ALK P 63 U/L Normal 45-117 [facility] Comment on above: Order Comment: PT WI LL COME BACK FOR LIPID WAS NOT FASTING.RANGLE Performed By: #### L 501.9520, L501.9985, L506.1000, L500.4050 ####[facility] [address] [place], [address] ALT [Catalytic activity/Vol] 31 U/L Normal 13-56 [facility] Comment on above: Order Comment: PT WI LL COME BACK FOR LIPID WAS NOT FASTING.RANGLE Performed By: #### L 501.9520, L501.9985, L506.1000, L500.4050 ####[facility] [address] [place], [address] AST [Catalytic activity/Vol] 22 U/L Normal 15-37 [facility] Comment on above: Order Comment: PT WI LL COME BACK FOR LIPID WAS NOT FASTING.RANGLE Performed By: #### L 501.9520, L501.9985, L506.1000, L500.4050 ####[facility] [address] [place], [address] Bilirubin [Mass/Vol] 0.50 mg/dL Normal 0.20-1.00 [facility] Comment on above: Order Comment: PT WI LL COME BACK FOR LIPID WAS NOT FASTING.RANGLE Result Comment: For patients on eltrombopag therapy, use of Dimension [place] TBIL is not recommended. Performed By: #### L 501.9520, L501.9985, L506.1000, L500.4050 ####[facility] [address] [place], [address] BUN/CRE 17.8 RATIO Normal 10-20 [facility] Comment on above: Order Comment: PT WI LL COME BACK FOR LIPID WAS NOT FASTING.RANGLE Performed By: #### L 501.9520, L501.9985, L506.1000, L500.4050 ####[facility] [address] [place], [address] CA,Total 9.4 mg/dL Normal 8.5-10.1 [facility] Comment on above: Order Comment: PT WI LL COME BACK FOR LIPID WAS NOT FASTING.RANGLE Performed By: #### L 501.9520, L501.9985, L506.1000, L500.4050 ####[facility] [address] [place], [address] Chloride [Moles/Vol] 108 mmol/L High 98-107 [facility] Comment on above: Order Comment: PT WI LL COME BACK FOR LIPID WAS NOT FASTING.RANGLE Performed By: #### L 501.9520, L501.9985, L506.1000, L500.4050 ####[facility] [address] [place], [address] CO2 [Moles/Vol] 29.0 mmol/L Normal 21.0-32.0 [facility] Comment on above: Order Comment: PT WI LL COME BACK FOR LIPID WAS NOT FASTING.RANGLE Performed By: #### L 501.9520, L501.9985, L506.1000, L500.4050 ####[facility] [address] [place], [address] Creatinine [Mass/Vol] 1.29 mg/dL High 0.55-1.02 [facility] Comment on above: Order Comment: PT WI LL COME BACK FOR LIPID WAS NOT FASTING.RANGLE Result Comment: The validity of the calculated GFR GFRAA in patients over 70 years has not been determined. Clinical correlation is essential. Performed By: #### L 501.9520, L501.9985, L506.1000, L500.4050 ####[facility] [address] [place], [address] EST GFR - AA 53 mL/min Low >60 [facility] Comment on above: Order Comment: PT WI LL COME BACK FOR LIPID WAS NOT FASTING.RANGLE Result Comment: Afri can Martiniquais GFR Calc Performed By: #### L 501.9520, L501.9985, L506.1000, L500.4050 ####[facility] [address] [place], [address] GAP 4 Low 5-15 [facility] Comment on above: Order Comment: PT WI LL COME BACK FOR LIPID WAS NOT FASTING.RANGLE Performed By: #### L 501.9520, L501.9985, L506.1000, L500.4050 ####[facility] [address] [place], [address] GFR/1.73 sq M.predicted among non-blacks MDRD (S/P/Bld) [Vol rate/Area] 44 mL/min/{1.73_m2} Low >60 [facility] Comment on above: Order Comment: PT [place] LL COME BACK FOR LIPID WAS NOT FASTING.RANGLE Result Comment: Non- GFR Calc Performed By: #### L 501.9520, [id number], L506.1000, L500.4050 ####[facility] [address] [place], [address] Globulin (S) [Mass/Vol] 3.7 g/dL Normal 2.2-4.2 [facility] Comment on above: Order Comment: PT WI LL COME BACK FOR LIPID WAS NOT FASTING.RANGLE Performed By: #### L [id number], [id number], L506.1000, L500.4050 ####[facility] [address] [place], [address] Glucose [Mass/Vol] 121 mg/dL High 74-106 [facility] Comment on above: Order Comment: PT WI LL COME BACK FOR LIPID WAS NOT FASTING.RANGLE Result Comment: Fast ing Glucose result from 100 to 125 mg/dL suggests IMPAIRED HOMEOSTASIS per A.D.A. criteria. Performed By: #### L [id number], [id number], L506.1000, L500.4050 ####[facility] [address] [place], [address] Potassium [Moles/Vol] 3.7 mmol/L Normal 3.5-5.1 [facility] Comment on above: Order Comment: PT WI LL COME BACK FOR LIPID WAS NOT FASTING.RANGLE Performed By: #### L [id number], [id number], L506.1000, L500.4050 ####[facility] [address] [place], [address] Sodium [Moles/Vol] 141 mmol/L Normal 136-145 [facility] Comment on above: Order Comment: PT WI LL COME BACK FOR LIPID WAS NOT FASTING.RANGLE Performed By: #### L [id number], [id number], L506.1000, [id number] ####[facility] [address] [place], [address] T PROT 7.0 g/dL Normal 6.4-8.2 [facility] Comment on above: Order Comment: PT WI LL COME BACK FOR LIPID WAS NOT FASTING.RANGLE Performed By: #### L [id number], [id number], L506.1000, [id number] ####[facility] [address] [place], [address] Urea nitrogen [Mass/Vol] 23 mg/dL High 7-18 [facility] Comment on above: Order Comment: PT WI LL COME BACK FOR LIPID WAS NOT FASTING.RANGLE Performed By: #### L [id number], [id number], L506.1000, L500.4050 ####[facility] [address] [place], [place], [address] Hemoglobin A1con 02-19-2024 HbA1c (Bld) [Mass fraction] 5.7 % High 3.8-5.6 [facility] Comment on above: Result Comment: Norm al < 5.7 % Prediabetic 5.7 - 6.4 % Diabetic >or= 6.5 % Please note range changes. Performed By: #### L [id number], [id number], L506.1000, [id number] ####[facility] [address] [place], [place], [id number] Thyroid Stim Hormone (TSH)on 02-19-2024 TSH 0.631 uIU/mL Normal 0.358-3.74 0 [facility] Comment on above: Order Comment: PT WI LL COME BACK FOR LIPID WAS NOT FASTING.RANGLE Performed By: #### L [id number], [id number], L506.1000, [id number] ####[facility] [address] [place], [place], [id number] Vitamin D,25 Hydroxyon 02-18 Vitamin D 25-OH 27.9 ng/mL Normal [facility] Comment on above: Result Comment: Nahed min D 25(OH) Status Range Deficiency <20 ng/mL (50nmol/L) Insufficiency 20 - 30 ng/mL (50 - 75 nmol/L) Sufficiency 30 - 100 ng/mL (75 - 250 nmol/L) Toxicity >100 ng/mL (>250 nmol/L) Performed By: #### L [id number], [id number], L506.1000, [id number] ####[facility] [address] [place], [place], [id number] Basophil percentageOrdered B y: Oswaldo Jones on 05-18-2023 Creatinine [Mass/Vol] 1.4 mg/dL 0.55-1.02 [facility] Bilirubin [Mass/Vol] 0.60 mg/dL 0.20-1.00 [facility] Comment on above: For patients on eltr ombopag therapy, use of Dimension [place] TBIL is not recommended. Chloride [Moles/Vol] 107 mmol/L 98-107 [facility] Glucose [Mass/Vol] 114 mg/dL 74-106 [facility] Comment on above: Fasting Glucose resu lt from 100 to 125 mg/dL suggests IMPAIRED HOMEOSTASIS per A.D.A. criteria. Hemoglobin (Bld) [Mass/Vol] 12.7 g/dL 12.0-15.0 [facility] Potassium [Moles/Vol] 3.9 mmol/L 3.5-5.1 [facility] Protein [Mass/Vol] 7.3 g/dL 6.4-8.2 [facility] Sodium [Moles/Vol] 141 mmol/L 136-145 [facility] WBC (Bld) [#/Vol] 8.8 10*3/uL 4.4-11.0 [facility] Determination of erythrocyte mean corpuscular volume (MCV)Ordered By: Oswaldo Jones on 05-18-2023 MCV (RBC) [Entitic vol] 83.7 fL 81-99 [facility] Erythrocyte distribution wid th ratioOrdered By: Oswaldo Jones on 05-18-2023 Erythrocyte distribution width (RBC) [Ratio] 13.6 % 11.6-14.6 [facility] Erythrocyte distribution wid th standard deviationOrdered By: Oswaldohenry Jones on 05-18-2023 Erythrocyte distribution width (RBC) [Entitic vol] 41.6 fL 35.1-43.9 [facility] Hematocrit Auto (Bld) [Volum e fraction]Ordered By: Oswaldohenry Jones on 05-18-2023 Hematocrit (Bld) [Volume fraction] 38.1 % 37-47 [facility] Laboratory - Chemistry and C hemistry - challengeOrdered By: Oswaldo Jones on 05-18-2023 GFR/1.73 sq M.predicted among non-blacks MDRD (S/P/Bld) [Vol rate/Area] 40.0000 mL/min/{1.73_m2} >60 [facility] Albumin/Globulin [Mass ratio] 1.0 {ratio} 0.9-2.4 [facility] ALP [Catalytic activity/Vol] 84 U/L 45-117 [facility] ALT [Catalytic activity/Vol] 25 U/L 13-56 [facility] CO2 [Moles/Vol] 28.0 mmol/L 21.0-32.0 [facility] Globulin (S) [Mass/Vol] 3.7 g/dL 2.2-4.2 [facility] Urea nitrogen/Creatinine [Mass ratio] 12.1 mg/mg 10-20 [facility] Laboratory - Hematology and Cell countsOrdered By: Oswaldo Jones on 05-18-2023 MCH (RBC) [Entitic mass] 27.9 pg 27.0-32.0 [facility] MCHC (RBC) [Mass/Vol] 33.3 g/dL 32-36 [facility] Platelet mean volume (Bld) [Entitic vol] 9.2 fL 6.2-12.0 [facility] Platelets (Bld) [#/Vol] 367 10*3/uL 150-450 [facility] No Panel InformationOrdered By: Oswaldo Jones on 05-18-2023 Estimated GFR (MDRD) Amer 55 mL/min >60 [facility] Comment on above: GFR Calc Estimated GFR (MDRD) Non-Af Amer 46 mL/min >60 [facility] Comment on above: Non- GFR Calc RBC Auto (Bld) [#/Vol]Ordere d By: Oswaldo Jones on 05-18-2023 RBC (Bld) [#/Vol] 4.55 10*6/uL 4.2-5.4 [facility] Serum or plasma calcium cl urement (mass/volume)Ordered By: Oswaldo Jones on 05-18-2023 Calcium [Mass/Vol] 9.0 mg/dL 8.5-10.1 [facility] Serum or plasma creatinine m easurement (mass/volume)Ordered By: Oswaldo Jones on 05-18-2023 Creatinine [Mass/Vol] 1.24 mg/dL 0.55-1.02 [facility] Comment on above: The validity of the calculated GFR & GFRAA in patients over 70 years has not been determined. Clinical correlation is essential. Serum or plasma urea nitroge n measurement (mass/volume)Ordered By: Oswaldo Jones on 05-18-2023 Urea nitrogen [Mass/Vol] 15 mg/dL 7-18 [facility] Thin prep Papanicolaou smear with manual screeningOrdered By: Oswaldo Jones on 05-18-2023 Thin prep Papanicolaou smear with manual screening 3.6 g/dL 3.2-5.0 [facility] Thin prep Papanicolaou smear with manual screening 16 U/L 15-37 [facility] Thin prep Papanicolaou smear with manual screening 6 5-15 [facility] Absolute lymphocyte countOrd ered By: Nellie Rome on 02-14-2023 Lymphocytes Auto (Unsp spec) [#/Vol] 2.18 10*3/uL 0.83-4.51 [facility] Basophil percentageOrdered B y: Nellie Rome on 02-14-2023 Basophils/100 WBC (Bld) 0.6 % 0-1 [facility] Bilirubin [Mass/Vol] 0.60 mg/dL 0.20-1.00 [facility] Comment on above: For patients on eltr ombopag therapy, use of Dimension [place] TBIL is not recommended. Chloride [Moles/Vol] 104 mmol/L 98-107 [facility] Cholesterol [Mass/Vol] 204 mg/dL <200 [facility] Comment on above: <200 mg/dL Desirable 200-240 mg/dL Borderline >240 mg/dL High Risk Eosinophils/100 WBC (Bld) 2.6 % 0-5 [facility] Glucose [Mass/Vol] 101 mg/dL 74-106 [facility] Comment on above: Fasting Glucose resu lt from 100 to 125 mg/dL suggests IMPAIRED HOMEOSTASIS per A.D.A. criteria. Neutrophils (Bld) [#/Vol] 4.9 10*3/uL 2.0-7.7 [facility] Neutrophils/100 WBC (Bld) 61.7 % 47-70 [facility] Potassium [Moles/Vol] 3.8 mmol/L 3.5-5.1 [facility] Protein [Mass/Vol] 7.4 g/dL 6.4-8.2 [facility] Sodium [Moles/Vol] 140 mmol/L 136-145 [facility] Triglyceride [Mass/Vol] 288 mg/dL <199 [facility] Comment on above: The drugs N-Acetylcy steine and Metamizole may falsely depress this assay.Serum Triglycerides Reference Interval Normal <150 mg/dL Borderline high 150 - 199 mg/dL High 200 - 499 mg/dL Very High > or = 500 mg/dL WBC (Bld) [#/Vol] 8.0 10*3/uL 4.4-11.0 [facility] Blood erythrocytes count (nu mber/volume)Ordered By: Nellie Rome on 02-14-2023 RBC (Bld) [#/Vol] 4.70 10*6/uL 4.2-5.4 [facility] Blood hemoglobin measurement (mass/volume)Ordered By: Nellie Rome on 02-14-2023 Hemoglobin (Bld) [Mass/Vol] 12.8 g/dL 12.0-15.0 [facility] Blood lymphocytes/100 leukoc ytesOrdered By: Nellie Rome on 02-14-2023 Lymphocytes/100 WBC (Bld) 27.3 % 19-41 [facility] Blood monocytes/100 leukocyt esOrdered By: Nellie Rome on 02-14-2023 Monocytes/100 WBC (Bld) 7.4 % 0-10 [facility] Blood platelet mean volumeOr dered By: Nellie Rome on 02-14-2023 Platelet mean volume (Bld) [Entitic vol] 9.7 fL 6.2-12.0 [facility] Determination of erythrocyte mean corpuscular volume (MCV)Ordered By: Nellie Rome on 02-14-2023 MCV (RBC) [Entitic vol] 84.9 fL 81-99 [facility] Hematocrit Auto (Bld) [Volum e fraction]Ordered By: Nellie Rome on 02-14-2023 Hematocrit (Bld) [Volume fraction] 39.9 % 37-47 [facility] Laboratory - Chemistry and C hemistry - challengeOrdered By: Nellie Rome on 02-14-2023 ALP [Catalytic activity/Vol] 73 U/L 45-117 [facility] ALT [Catalytic activity/Vol] 19 U/L 13-56 [facility] CO2 [Moles/Vol] 30.0 mmol/L 21.0-32.0 [facility] Globulin (S) [Mass/Vol] 3.9 g/dL 2.2-4.2 [facility] Urea nitrogen/Creatinine [Mass ratio] 15.4 mg/mg 10-20 [facility] Laboratory - Hematology and Cell countsOrdered By: Nellie Rome on 02-14-2023 Erythrocyte distribution width (RBC) [Entitic vol] 44.2 fL 35.1-43.9 [facility] Erythrocyte distribution width (RBC) [Ratio] 14.3 % 11.6-14.6 [facility] Immature granulocytes/100 WBC (Bld) 0.400 % 0.0-0.9 [facility] Comment on above: IG% - Immature Granu locytes (promyelocytes, myelocytes and metamyelocytes) > 1% indicates that a LEFT SHIFT is Present. MCH (RBC) [Entitic mass] 27.2 pg 27.0-32.0 [facility] Nucleated RBC/100 WBC (Bld) [Ratio] 0 % 0-5 [facility] MCHC Auto (RBC) [Mass/Vol]Or dered By: Nellie Rome on 02-14-2023 MCHC (RBC) [Mass/Vol] 32.1 g/dL 32-36 [facility] No Panel InformationOrdered By: Nellie Rome on 02-14-2023 Estimated GFR (MDRD) Amer 68 mL/min >60 [facility] Comment on above: GFR Calc Estimated GFR (MDRD) Non-Af Amer 56 mL/min >60 [facility] Comment on above: Non- GFR Calc Platelets bldOrdered By: Vernon Rome on 02-14-2023 Platelets (Bld) [#/Vol] 379 10*3/uL 150-450 [facility] Serum or plasma albumin cl urement (mass/volume)Ordered By: Nellie Rome on 02-14-2023 Albumin [Mass/Vol] 3.5 g/dL 3.2-5.0 [facility] Serum or plasma albumin/glob ulin mass ratioOrdered By: Nellie Rome on 02-14-2023 Albumin/Globulin [Mass ratio] 0.9 {ratio} 0.9-2.4 [facility] Serum or plasma calcium cl urement (mass/volume)Ordered By: Nellie Rome on 02-14-2023 Calcium [Mass/Vol] 8.9 mg/dL 8.5-10.1 [facility] Serum or plasma cholesterol in HDL measurement (mass/volume)Ordered By: Nellie Rome on 02-14-2023 Cholesterol in HDL [Mass/Vol] 55 mg/dL >40 [facility] Comment on above: The drugs N-Acetylcy steine and Metamizole may falsely depress this assay. Reference Range HDL <40 mg/dL Low HDL Cholesterol HDL >or= 60 mg/dL High HDL Cholesterol Serum or plasma cholesterol in VLDL measurement (mass/volume)Ordered By: Nellie Rome on 02-14-2023 Cholesterol in VLDL [Mass/Vol] 58 mg/dL 5-40 [facility] Serum or plasma creatinine m easurement (mass/volume)Ordered By: Nellie Roem on 02-14-2023 Creatinine [Mass/Vol] 1.04 mg/dL 0.55-1.02 [facility] Comment on above: The validity of the calculated GFR & GFRAA in patients over 70 years has not been determined. Clinical correlation is essential. Serum or plasma low density lipoprotein (LDL) cholesterol measurement (mass/volume)Ordered By: Nellie Rome on 02-14-2023 Cholesterol in LDL [Mass/Vol] 91 mg/dL 0-130 [facility] Serum or plasma urea nitroge n measurement (mass/volume)Ordered By: Nellie Rome on 02-14-2023 Urea nitrogen [Mass/Vol] 16 mg/dL 7-18 [facility] Thin prep Papanicolaou smear with manual screeningOrdered By: Nellie Rome on 02-14-2023 Thin prep Papanicolaou smear with manual screening 14 U/L 15-37 [facility] Thin prep Papanicolaou smear with manual screening 6 5-15 [facility] Whole blood hemoglobin A1c/t otal hemoglobin ratio (mass fraction)Ordered By: Nellie Rome on 02-14-2023 HbA1c (Bld) [Mass fraction] 5.8 % 3.8-5.6 [facility] Comment on above: Normal < 5.7 % Predi abetic 5.7 - 6.4 % Diabetic >or= 6.5 % Please note range changes. Basophil percentageOrdered B y: Dr. Jones on 04-04-2022 Creatinine [Mass/Vol] 1.0 mg/dL 0.55-1.02 [facility] No Panel InformationOrdered By: Dr. Jones on 04-04-2022 Bedside Estimated GFR (eGFR) > 60.0000 mL/min >60 [facility] Absolute lymphocyte countOrd ered By: Dr. Rome on 03-17-2022 Lymphocytes Auto (Unsp spec) [#/Vol] 1.96 10*3/uL 0.83-4.51 [facility] Basophil percentageOrdered B y: Dr. Rome on 03-17-2022 Basophils/100 WBC (Bld) 0.7 % 0-1 [facility] Eosinophils/100 WBC (Bld) 3.4 % 0-5 [facility] Neutrophils (Bld) [#/Vol] 4.4 10*3/uL 2.0-7.7 [facility] Neutrophils/100 WBC (Bld) 60.5 % 47-70 [facility] WBC (Bld) [#/Vol] 7.3 10*3/uL 4.4-11.0 [facility] Blood erythrocytes count (nu mber/volume)Ordered By: Dr. Rome on 03-17-2022 RBC (Bld) [#/Vol] 4.83 10*6/uL 4.2-5.4 [facility] Blood hemoglobin measurement (mass/volume)Ordered By: Dr. Rome on 03-17-2022 Hemoglobin (Bld) [Mass/Vol] 13.4 g/dL 12.0-15.0 [facility] Blood lymphocytes/100 leukoc ytesOrdered By: Dr. Rome on 03-17-2022 Lymphocytes/100 WBC (Bld) 26.8 % 19-41 [facility] Blood monocytes/100 leukocyt esOrdered By: Dr. Rome on 03-17-2022 Monocytes/100 WBC (Bld) 8.3 % 0-10 [facility] Blood platelet mean volumeOr dered By: Dr. Rome on 03-17-2022 Platelet mean volume (Bld) [Entitic vol] 10.0 fL 6.2-12.0 [facility] Determination of erythrocyte mean corpuscular volume (MCV)Ordered By: Dr. Rome on 03-17-2022 MCV (RBC) [Entitic vol] 82.0 fL 81-99 [facility] Hematocrit Auto (Bld) [Volum e fraction]Ordered By: Dr. Rome on 03-17-2022 Hematocrit (Bld) [Volume fraction] 39.6 % 37-47 [facility] Iron measurement (mass/mass) Ordered By: Dr. Rome on 03-17-2022 Iron (Unsp spec) [Mass/Mass] 76 ug/dL 50-170 [facility] Laboratory - Hematology and Cell countsOrdered By: Dr. Rome on 03-17-2022 Erythrocyte distribution width (RBC) [Entitic vol] 49.3 fL 35.1-43.9 [facility] Erythrocyte distribution width (RBC) [Ratio] 16.6 % 11.6-14.6 [facility] Immature granulocytes/100 WBC (Bld) 0.300 % 0.0-0.9 [facility] Comment on above: IG% - Immature Granu locytes (promyelocytes, myelocytes and metamyelocytes) > 1% indicates that a LEFT SHIFT is Present. MCH (RBC) [Entitic mass] 27.7 pg 27.0-32.0 [facility] Nucleated RBC/100 WBC (Bld) [Ratio] 0 % 0-5 [facility] MCHC Auto (RBC) [Mass/Vol]Or dered By: Dr. Rome on 03-17-2022 MCHC (RBC) [Mass/Vol] 33.8 g/dL 32-36 [facility] No Panel InformationOrdered By: Dr. Rome on 03-17-2022 Total Iron Binding Capacity 397 ug/dL 250-450 [facility] Platelets bldOrdered By: Dr. Rome on 03-17-2022 Platelets (Bld) [#/Vol] 374 10*3/uL 150-450 [facility] Serum or plasma ferritin [place] surement (mass/volume)Ordered By: Dr. Rome on 03-17-2022 Ferritin [Mass/Vol] 18 ng/mL 8-252 [facility] Serum or plasma iron saturat ion measurement (mass fraction)Ordered By: Dr. Rome on 03-17-2022 Iron saturation [Mass fraction] 19.1 % 15.0-55.0 [facility] Absolute lymphocyte countOrd ered By: Dr. Rome on 12-01-2021 Lymphocytes Auto (Unsp spec) [#/Vol] 1.87 10*3/uL 0.83-4.51 [facility] Basophil percentageOrdered B y: Dr. Rome on 12-01-2021 Basophils/100 WBC (Bld) 0.5 % 0-1 [facility] Eosinophils/100 WBC (Bld) 2.3 % 0-5 [facility] Neutrophils (Bld) [#/Vol] 6.0 10*3/uL 2.0-7.7 [facility] Neutrophils/100 WBC (Bld) 69.3 % 47-70 [facility] WBC (Bld) [#/Vol] 8.7 10*3/uL 4.4-11.0 [facility] Blood erythrocytes count (nu mber/volume)Ordered By: Dr. Rome on 12-01-2021 RBC (Bld) [#/Vol] 4.55 10*6/uL 4.2-5.4 [facility] Blood hemoglobin measurement (mass/volume)Ordered By: Dr. Rome on 12-01-2021 Hemoglobin (Bld) [Mass/Vol] 10.9 g/dL 12.0-15.0 [facility] Blood lymphocytes/100 leukoc ytesOrdered By: Dr. Rome on 12-01-2021 Lymphocytes/100 WBC (Bld) 21.6 % 19-41 [facility] Blood monocytes/100 leukocyt esOrdered By: Dr. Rome on 12-01-2021 Monocytes/100 WBC (Bld) 6.1 % 0-10 [facility] Blood platelet mean volumeOr dered By: Dr. Rome on 12-01-2021 Platelet mean volume (Bld) [Entitic vol] 9.5 fL 6.2-12.0 [facility] Determination of erythrocyte mean corpuscular volume (MCV)Ordered By: Dr. Rome on 12-01-2021 MCV (RBC) [Entitic vol] 78.5 fL 81-99 [facility] Hematocrit Auto (Bld) [Volum e fraction]Ordered By: Dr. Rome on 12-01-2021 Hematocrit (Bld) [Volume fraction] 35.7 % 37-47 [facility] Iron measurement (mass/mass) Ordered By: Dr. Rome on 12-01-2021 Iron (Unsp spec) [Mass/Mass] 36 ug/dL 50-170 [facility] Laboratory - Hematology and Cell countsOrdered By: Dr. Rome on 12-01-2021 Erythrocyte distribution width (RBC) [Entitic vol] 44.9 fL 35.1-43.9 [facility] Erythrocyte distribution width (RBC) [Ratio] 15.8 % 11.6-14.6 [facility] Immature granulocytes/100 WBC (Bld) 0.200 % 0.0-0.9 [facility] Comment on above: IG% - Immature Granu locytes (promyelocytes, myelocytes and metamyelocytes) > 1% indicates that a LEFT SHIFT is Present. MCH (RBC) [Entitic mass] 24.0 pg 27.0-32.0 [facility] Nucleated RBC/100 WBC (Bld) [Ratio] 0 % 0-5 [facility] MCHC Auto (RBC) [Mass/Vol]Or dered By: Dr. Rome on 12-01-2021 MCHC (RBC) [Mass/Vol] 30.5 g/dL 32-36 [facility] No Panel InformationOrdered By: Dr. Rome on 12-01-2021 Total Iron Binding Capacity 426 ug/dL 250-450 [facility] Vitamin D 25-Hydroxy 43.8 ng/mL [facility] Comment on above: Vitamin D 25(OH) Sta tus Range Deficiency <20 ng/mL (50nmol/L) Insufficiency 20 - 30 ng/mL (50 - 75 nmol/L) Sufficiency 30 - 100 ng/mL (75 - 250 nmol/L) Toxicity >100 ng/mL (>250 nmol/L) Platelets bldOrdered By: Dr. Rome on 12-01-2021 Platelets (Bld) [#/Vol] 450 10*3/uL 150-450 [facility] Serum or plasma ferritin [place] surement (mass/volume)Ordered By: Dr. Rome on 12-01-2021 Ferritin [Mass/Vol] 7 ng/mL 8-252 [facility] Absolute lymphocyte counton 10-13-2021 Lymphocytes Auto (Unsp spec) [#/Vol] 1.97 10*3/uL 0.83-4.51 [facility] Work Phone: Basophil percentageon 2021 Basophils/100 WBC (Bld) 0.3 % 0-1 [facility] Work Phone: Eosinophils/100 WBC (Bld) 5.9 % 0-5 [facility] Work Phone: Neutrophils (Bld) [#/Vol] 9.3 10*3/uL 2.0-7.7 [facility] Work Phone: Neutrophils/100 WBC (Bld) 71.3 % 47-70 [facility] Work Phone: WBC (Bld) [#/Vol] 13.0 10*3/uL 4.4-11.0 [facility] Work Phone: Blood erythrocytes count (nu mber/volume)on 10-13-2021 RBC (Bld) [#/Vol] 4.08 10*6/uL 4.2-5.4 [facility] Work Phone: Blood hemoglobin measurement (mass/volume)on 10-13-2021 Hemoglobin (Bld) [Mass/Vol] 10.4 g/dL 12.0-15.0 [facility] Work Phone: Blood lymphocytes/100 leukoc yteson 10-13-2021 Lymphocytes/100 WBC (Bld) 15.2 % 19-41 [facility] Work Phone: Blood monocytes/100 leukocyt eson 10-13-2021 Monocytes/100 WBC (Bld) 6.9 % 0-10 [facility] Work Phone: Blood platelet mean volumeon 10-13-2021 Platelet mean volume (Bld) [Entitic vol] 9.4 fL 6.2-12.0 [facility] Work Phone: Determination of erythrocyte mean corpuscular volume (MCV)on 10-13-2021 MCV (RBC) [Entitic vol] 80.9 fL 81-99 [facility] Work Phone: Hematocrit Auto (Bld) [Volum e fraction]on 10-13-2021 Hematocrit (Bld) [Volume fraction] 33.0 % 37-47 [facility] Work Phone: Laboratory - Hematology and Cell countson 10-13-2021 Erythrocyte distribution width (RBC) [Entitic vol] 43.0 fL 35.1-43.9 [facility] Work Phone: Erythrocyte distribution width (RBC) [Ratio] 14.9 % 11.6-14.6 [facility] Work Phone: Immature granulocytes/100 WBC (Bld) 0.400 % 0.0-0.9 [facility] Work Phone: Comment on above: IG% - Immature Granu locytes (promyelocytes, myelocytes and metamyelocytes) > 1% indicates that a LEFT SHIFT is Present. MCH (RBC) [Entitic mass] 25.5 pg 27.0-32.0 [facility] Work Phone: [phone] Nucleated RBC/100 WBC (Bld) [Ratio] 0 % 0-5 [facility] Work Phone: MCHC Auto (RBC) [Mass/Vol]on 10-13-2021 MCHC (RBC) [Mass/Vol] 31.5 g/dL 32-36 [facility] Work Phone: Platelets bldon 10-13-2021 Platelets (Bld) [#/Vol] 424 10*3/uL 150-450 [facility] Work Phone: Basophil percentageon 2021 Chloride [Moles/Vol] 105 mmol/L 98-107 [facility] Work Phone: Glucose [Mass/Vol] 126 mg/dL 74-106 [facility] Work Phone: Comment on above: Fasting Glucose resu lt greater than or equal to 126 mg/dL suggests DIABETES MELLITUS per A.D.A. criteria. Potassium [Moles/Vol] 4.2 mmol/L 3.5-5.1 [facility] Work Phone: Sodium [Moles/Vol] 137 mmol/L 136-145 [facility] Work Phone: Glucose Glucometer (BldC) [M ass/Vol]on 10-12-2021 Glucose [Mass/Vol] 131 mg/dL 74-106 [facility] Work Phone: Comment on above: MANAGEMENT OF PATIEN T CARE PER NURSING PROTOCOL Laboratory - Chemistry and C hemistry - challengeon 10-12-2021 CO2 [Moles/Vol] 28.0 mmol/L 21.0-32.0 [facility] Work Phone: Urea nitrogen/Creatinine [Mass ratio] 9.9 mg/mg 10-20 [facility] Work Phone: No Panel Informationon 10-12 Estimated Creatinine Clearance Calc 33.41 ml/min [facility] Work Phone: Estimated GFR (MDRD) Amer 52 mL/min >60 [facility] Work Phone: Comment on above: GFR Calc Estimated GFR (MDRD) Non-Af Amer 43 mL/min >60 [facility] Work Phone: Comment on above: Non- GFR Calc Serum or plasma calcium cl urement (mass/volume)on 10-12-2021 Calcium [Mass/Vol] 8.9 mg/dL 8.5-10.1 [facility] Work Phone: Serum or plasma creatinine m easurement (mass/volume)on 10-12-2021 Creatinine [Mass/Vol] 1.31 mg/dL 0.55-1.02 [facility] Work Phone: Comment on above: The validity of the calculated GFR & GFRAA in patients over 70 years has not been determined. Clinical correlation is essential. Serum or plasma urea nitroge n measurement (mass/volume)on 10-12-2021 Urea nitrogen [Mass/Vol] 13 mg/dL 7-18 [facility] Work Phone: Thin prep Papanicolaou smear with manual screeningon 10-12-2021 Thin prep Papanicolaou smear with manual screening 4 5-15 [facility] Work Phone: Basophil percentageon 2021 Bilirubin [Mass/Vol] 0.30 mg/dL 0.20-1.00 [facility] Work Phone: Comment on above: For patients on eltr ombopag therapy, use of Dimension [place] TBIL is not recommended. Protein [Mass/Vol] 6.6 g/dL 6.4-8.2 [facility] Work Phone: INR in Blood by Coagulation assayon 10-06-2021 INR Coag (Bld) [Relative time] 1.1 {INR} [facility] Work Phone: Laboratory - Chemistry and C hemistry - challengeon 10-06-2021 ALP [Catalytic activity/Vol] 60 U/L 45-117 [facility] Work Phone: ALT [Catalytic activity/Vol] 17 U/L 13-56 [facility] Work Phone: Globulin (S) [Mass/Vol] 3.8 g/dL 2.2-4.2 [facility] Work Phone: Magnesium [Mass/Vol] 2.0 mg/dL 1.6-2.6 [facility] Work Phone: Laboratory - Coagulationon 0 10-06-2021 aPTT Coag (Bld) [Time] 30.2 s 24.1-36.2 [facility] Work Phone: PT Coag (PPP) [Time] 13.7 s 11.7-14.9 [facility]: No Panel Informationon 10-06 Thyroid Stimulating Hormone (TSH) 0.86 uIU/mL 0.358-3.74 [facility] Work Phone: Serum or plasma albumin cl urement (mass/volume)on 10-06-2021 Albumin [Mass/Vol] 2.8 g/dL 3.2-5.0 oste r [facility] Work Phone: Serum or plasma albumin/glob ulin mass ratioon 10-06-2021 Albumin/Globulin [Mass ratio] 0.7 {ratio} 0.9-2.4 [facility] Work Phone: Serum or plasma carcinoembry onic antigen measurement (mass/volume)on 10-06-2021 Carcinoembryonic Ag [Mass/Vol] 0.7 ng/mL 0.0-4.7 [facility] Work Phone: Comment on above: Nonsmokers <3.9 Smok ers <5.6[employer] Electrochemiluminescence Immunoassay(ECLIA)Values obtained with different assay methods or kitscannot be used interchangeably. Results cannot beinterpreted as absolute evidence of the presence orabsence of malignant disease.Performed at: [address] [id number] Director: Beto Yap PhD, Phone: [phone] Thin prep Papanicolaou smear with manual screeningon 10-06-2021 Thin prep Papanicolaou smear with manual screening 10 U/L 15-37 [facility] Work Phone: Basophil percentageon 2021 Creatinine [Mass/Vol] 1.0 mg/dL 0.55-1.02 [facility] Work Phone: Laboratory - Chemistry and C hemistry - challengeon 09-08-2021 GFR/1.73 sq M.predicted among non-blacks MDRD (S/P/Bld) [Vol rate/Area] 56.0000 mL/min/{1.73_m2} >60 [facility] Work Phone: Absolute lymphocyte counton 09-01-2021 Lymphocytes Auto (Unsp spec) [#/Vol] 2.73 10*3/uL 0.83-4.51 [facility] Work Phone: Basophil percentageon 2021 Basophils/100 WBC (Bld) 0.2 % 0-1 [facility] Work Phone: Eosinophils/100 WBC (Bld) 1.5 % 0-5 [facility] Work Phone: Neutrophils (Bld) [#/Vol] 9.1 10*3/uL 2.0-7.7 [facility] Work Phone: Neutrophils/100 WBC (Bld) 69.6 % 47-70 [facility] Work Phone: WBC (Bld) [#/Vol] 13.0 10*3/uL 4.4-11.0 [facility] Work Phone: [phone] Blood erythrocytes count (nu mber/volume)on 09-01-2021 RBC (Bld) [#/Vol] 4.14 10*6/uL 4.2-5.4 [facility] Work Phone: Blood hemoglobin measurement (mass/volume)on 09-01-2021 Hemoglobin (Bld) [Mass/Vol] 11.3 g/dL 12.0-15.0 [facility] Work Phone: Blood lymphocytes/100 leukoc yteson 09-01-2021 Lymphocytes/100 WBC (Bld) 21.0 % 19-41 [facility] Work Phone: Blood monocytes/100 leukocyt eson 09-01-2021 Monocytes/100 WBC (Bld) 7.3 % 0-10 [facility] Work Phone: Blood platelet mean volumeon 09-01-2021 Platelet mean volume (Bld) [Entitic vol] 9.0 fL 6.2-12.0 [facility] Work Phone: Determination of erythrocyte mean corpuscular volume (MCV)on 09-01-2021 MCV (RBC) [Entitic vol] 84.3 fL 81-99 [facility] Work Phone: Hematocrit Auto (Bld) [Volum e fraction]on 09-01-2021 Hematocrit (Bld) [Volume fraction] 34.9 % 37-47 [facility] Work Phone: Laboratory - Hematology and Cell countson 09-01-2021 Erythrocyte distribution width (RBC) [Entitic vol] 42.3 fL 35.1-43.9 [facility] Work Phone: [phone] Erythrocyte distribution width (RBC) [Ratio] 13.6 % 11.6-14.6 [facility] Work Phone: Immature granulocytes/100 WBC (Bld) 0.400 % 0.0-0.9 [facility] Work Phone: Comment on above: IG% - Immature Granu locytes (promyelocytes, myelocytes and metamyelocytes) > 1% indicates that a LEFT SHIFT is Present. MCH (RBC) [Entitic mass] 27.3 pg 27.0-32.0 [facility] Work Phone: Nucleated RBC/100 WBC (Bld) [Ratio] 0 % 0-5 [facility] Work Phone: MCHC Auto (RBC) [Mass/Vol]on 09-01-2021 MCHC (RBC) [Mass/Vol] 32.4 g/dL 32-36 [facility] Work Phone: Platelets bldon 09-01-2021 Platelets (Bld) [#/Vol] 496 10*3/uL 150-450 [facility] Work Phone: Vital Signs Date Time Vital Sign Value Performing Clinician Faci lity 11-17-2024 11:08-0400 Body height 160.[address] Nellie Rome MD Work Phone: [facility] 11-17-2024 11:08-0400 Body mass index (BMI) [Ratio] 36.5 kg/m2 Dr. Nellie Rome MD Work Phone: [facility] 11-17-2024 11:08-0400 Body temperature 97.9 [degF] Dr. Nellie Rome MD Work Phone: [facility] 11-17-2024 11:08-0400 Body weight 93.[address] Nellie Rome MD Work Phone: [facility] 11-17-2024 11:08-0400 Diastolic blood pressure 82 mm[Hg] Dr. Nellie Rome MD Work Phone: [facility] 11-17-2024 11:08-0400 Heart rate 54 /min Dr. Nellie Rome MD Work Phone: [facility] 11-17-2024 11:08-0400 Respiratory rate 16 /min Dr. Nellie Rome MD Work Phone: [facility] 11-17-2024 11:08-0400 SaO2% (BldA) [Mass fraction] 97 % Dr. Nellie Rome MD Work Phone: [facility] 11-17-2024 11:08-0400 Systolic blood pressure 147 mm[Hg] Dr. Nellie Rome MD Work Phone: [facility] 11-11-2024 11:46-0400 Body height 160.[address] Nellie Rome MD Work Phone: [facility] 11-11-2024 11:46-0400 Body mass index (BMI) [Ratio] 36.3 kg/m2 Dr. Nellie Rome MD Work Phone: [facility] 11-11-2024 11:46-0400 Body temperature 96.7 [degF] Dr. Nellie Rome MD Work Phone: [facility] 11-11-2024 11:46-0400 Body weight 93.[address] Nellie Rome MD Work Phone: [facility] 11-11-2024 11:46-0400 Diastolic blood pressure 78 mm[Hg] Dr. Nellie Rome MD Work Phone: [facility] 11-11-2024 11:46-0400 Heart rate 59 /min Dr. Nellie Rome MD Work Phone: [facility] 11-11-2024 11:46-0400 Respiratory rate 16 /min Dr. Nellie Rome MD Work Phone: [facility] 11-11-2024 11:46-0400 SaO2% (BldA) [Mass fraction] 97 % Dr. Nellie Rome MD Work Phone: [facility] 11-11-2024 11:46-0400 Systolic blood pressure 145 mm[Hg] Dr. Nellie Rome MD Work Phone: [facility] 10-30-2024 10:08-0400 Body height 160.[address] Nellie Rome MD Work Phone: [facility] 10-30-2024 10:08-0400 Body mass index (BMI) [Ratio] 36.3 kg/m2 Dr. Nellie Rome MD Work Phone: [facility] 10-30-2024 10:08-0400 Body temperature 97.8 [degF] Dr. Nellie Rome MD Work Phone: [facility] 10-30-2024 10:08-0400 Body weight 92.[address] Nellie Rome MD Work Phone: [facility] 10-30-2024 10:08-0400 Diastolic blood pressure 76 mm[Hg] Dr. Nellie Rome MD Work Phone: [facility] 10-30-2024 10:08-0400 Heart rate 64 /min Dr. Nellie Rome MD Work Phone: [facility] 10-30-2024 10:08-0400 Respiratory rate 18 /min Dr. Nellie Rome MD Work Phone: [facility] 10-30-2024 10:08-0400 SaO2% (BldA) [Mass fraction] 96 % Dr. Nellie Rome MD Work Phone: [facility] 10-30-2024 10:08-0400 Systolic blood pressure 127 mm[Hg] Dr. Nellie Rome MD Work Phone: [facility] 10-07-2024 18:29-0400 Body temperature 97.5 [degF] Dr. Nellie Rome MD Work Phone: [facility] 10-07-2024 18:29-0400 Diastolic blood pressure 64 mm[Hg] Dr. Nellie Rome MD Work Phone: [facility] 10-07-2024 18:29-0400 Heart rate 69 /min Dr. Nellie Rome MD Work Phone: [facility] 10-07-2024 18:29-0400 Respiratory rate 16 /min Dr. Nellie Rome MD Work Phone: [facility] 10-07-2024 18:29-0400 SaO2% (BldA) [Mass fraction] 98 % Dr. Nellie Rome MD Work Phone: [facility] 10-07-2024 18:29-0400 Systolic blood pressure 133 mm[Hg] Dr. Nellie Rome MD Work Phone: [facility] 10-07-2024 10:26-0400 Body height 160.[address] Nellie Rome MD Work Phone: [facility] 10-07-2024 10:26-0400 Body mass index (BMI) [Ratio] 36.3 kg/m2 Dr. Nellie Rome MD Work Phone: [facility] 10-07-2024 10:26-0400 Body weight [address] Nellie Rome MD Work Phone: [facility] 09-26-2024 13:25-0400 Body height 160.[address] Nellie Rome MD Work Phone: [facility] 09-26-2024 13:25-0400 Body mass index (BMI) [Ratio] 36.8 kg/m2 Dr. Nellie Rome MD Work Phone: [facility] 09-26-2024 13:25-0400 Body weight 94.[address] Nellie Rome MD Work Phone: [facility] 09-26-2024 13:25-0400 Diastolic blood pressure 78 mm[Hg] Dr. Nellie Rome MD Work Phone: [facility] 09-26-2024 13:25-0400 Heart rate 70 /min Dr. Nellie Rome MD Work Phone: [facility] 09-26-2024 13:25-0400 Respiratory rate 18 /min Dr. Nellie Rome MD Work Phone: [facility] 09-26-2024 13:25-0400 SaO2% (BldA) [Mass fraction] 97 % Dr. Nellie Rome MD Work Phone: [facility] 09-26-2024 13:25-0400 Systolic blood pressure 149 mm[Hg] Dr. Nellie Rome MD Work Phone: [facility] 09-15-2024 12:45-0400 Body height 160.[address] Nellie Rome MD Work Phone: [facility] 09-15-2024 12:45-0400 Body mass index (BMI) [Ratio] 37.3 kg/m2 Dr. Nellie Rome MD Work Phone: [facility] 09-15-2024 12:45-0400 Body temperature 97.2 [degF] Dr. Nellie Rome MD Work Phone: [facility] 09-15-2024 12:45-0400 Body weight 95.[address] Nellie Rome MD Work Phone: [facility] 09-15-2024 12:45-0400 Diastolic blood pressure 76 mm[Hg] Dr. Nellie Rome MD Work Phone: [facility] 09-15-2024 12:45-0400 Heart rate 72 /min Dr. Nellie Rome MD Work Phone: [facility] 09-15-2024 12:45-0400 Respiratory rate 18 /min Dr. Nellie Rome MD Work Phone: [facility] 09-15-2024 12:45-0400 SaO2% (BldA) [Mass fraction] 97 % Dr. Nellie Rome MD Work Phone: [facility] 09-15-2024 12:45-0400 Systolic blood pressure 147 mm[Hg] Dr. Nellie Rome MD Work Phone: [facility] 05-28-2024 08:06-0400 Body mass index (BMI) [Ratio] 40 kg/m2 Dr. Nellie Rome MD Work Phone: [facility] 05-28-2024 08:06-0400 Body temperature 97.4 [degF] Dr. Nellie Rome MD Work Phone: [facility] 05-28-2024 08:06-0400 Body weight 99.[address] Nellie Rome MD Work Phone: [facility] 05-28-2024 08:06-0400 Diastolic blood pressure 76 mm[Hg] Dr. Nellie Rome MD Work Phone: [facility] 05-28-2024 08:06-0400 Heart rate 70 /min Dr. Nellie Rome MD Work Phone: [facility] 05-28-2024 08:06-0400 Respiratory rate 20 /min Dr. Nellie Rome MD Work Phone: [facility] 05-28-2024 08:06-0400 SaO2% (BldA) [Mass fraction] 97 % Dr. Nellie Rome MD Work Phone: [facility] 05-28-2024 08:06-0400 Systolic blood pressure 131 mm[Hg] Dr. Nellie Rome MD Work Phone: [facility] 05-23-2023 06:34-0400 Body height 157.[address] Nellie Rome Work Phone: [facility] 05-23-2023 06:34-0400 Body mass index (BMI) [Ratio] 41 kg/m2 Dr. Nellie Rome Work Phone: [facility] 05-23-2023 06:34-0400 Body temperature 97.3 [degF] Dr. Nellie Rome Work Phone: [facility] 05-23-2023 06:34-0400 Body weight 101.[address] Nellie Rome Work Phone: [facility] 05-23-2023 06:34-0400 Diastolic blood pressure 83 mm[Hg] Dr. Nellie Rome Work Phone: [facility] 05-23-2023 06:34-0400 Heart rate 67 /min Dr. Nellie Rome Work Phone: [facility] 05-23-2023 06:34-0400 Respiratory rate 18 /min Dr. Nellie Rome Work Phone: [facility] 05-23-2023 06:34-0400 SaO2% (BldA) [Mass fraction] 97 % Dr. Nellie Rome Work Phone: [facility] 05-23-2023 06:34-0400 Systolic blood pressure 141 mm[Hg] Dr. Nellie Rome Work Phone: [facility] 02-23-2022 11:08-0500 Body height 157.[address] Nellie Rome Work Phone: [facility] 02-23-2022 11:08-0500 Body mass index (BMI) [Ratio] 40.6 kg/m2 Dr. Nellie Rome Work Phone: [facility] 02-23-2022 11:08-0500 Body temperature 98.2 [degF] Dr. Nellie Rome Work Phone: [facility] 02-23-2022 11:08-0500 Body weight 100.[address] Nellie Rome Work Phone: [facility] 02-23-2022 11:08-0500 Diastolic blood pressure 79 mm[Hg] Dr. Nellie Rome Work Phone: [facility] 02-23-2022 11:08-0500 Heart rate 79 /min Dr. Nellie Rome Work Phone: [facility] 02-23-2022 11:08-0500 Respiratory rate 18 /min Dr. Nellie Rome Work Phone: [facility] 02-23-2022 11:08-0500 SaO2% (BldA) [Mass fraction] 69 % Dr. Nellie Rome Work Phone: [facility] 02-23-2022 11:08-0500 Systolic blood pressure 135 mm[Hg] Dr. Nellie Rome Work Phone: [facility] 10-24-2021 12:46-0400 Body weight 97.[address] Nellie Rome Work Phone: [facility] Work Phone: 10-13-2021 10:53-0400 Diastolic blood pressure 56 mm[Hg] Dr. Nellie Rome Work Phone: [facility] Work Phone: 10-13-2021 10:53-0400 Systolic blood pressure 125 mm[Hg] Dr. Nellie Rome Work Phone: [facility] Work Phone: 10-13-2021 09:25-0400 Body temperature 98.4 [degF] Dr. Nellie Rome Work Phone: [facility] Work Phone: 10-13-2021 09:25-0400 Heart rate 72 /min Dr. Nellie Rome Work Phone: [facility] Work Phone: 10-13-2021 09:25-0400 Respiratory rate 16 /min Dr. Nellie Rome Work Phone: [facility] Work Phone: 10-13-2021 09:25-0400 SaO2% (BldA) [Mass fraction] 97 % Dr. Nellie Rome Work Phone: [facility] Work Phone: 10-12-2021 15:17-0400 Body height 157.[address] Nellie Rome Work Phone: [facility] Work Phone: 10-12-2021 15:17-0400 Body weight [address] Nellie Rome Work Phone: [facility] Work Phone: 10-11-2021 13:45-0400 Inhaled oxygen flow rate 4 L/min Dr. Nellie Rome Work Phone: [facility] Work Phone: 10-11-2021 06:05-0400 Body mass index (BMI) [Ratio] 39.1 kg/m2 Dr. Nellie Rome Work Phone: [facility] Work Phone: 09-19-2021 14:42-0400 Body mass index (BMI) [Ratio] 37.7 kg/m2 Dr. Nellie Rome Work Phone: [facility] Work Phone: 09-19-2021 14:42-0400 Body temperature 97.9 [degF] Dr. Nellie Rome Work Phone: [facility] Work Phone: 09-19-2021 14:42-0400 Body weight 96.[address] Nellie Rome Work Phone: [facility] Work Phone: 09-19-2021 14:42-0400 Diastolic blood pressure 69 mm[Hg] Dr. Nellie Rome Work Phone: [facility] Work Phone: 09-19-2021 14:42-0400 Heart rate 82 /min Dr. Nellie Rome Work Phone: [facility] Work Phone: 09-19-2021 14:42-0400 Respiratory rate 16 /min Dr. Nellie Rome Work Phone: [facility] Work Phone: 09-19-2021 14:42-0400 SaO2% (BldA) [Mass fraction] 98 % Dr. Nellie Rome Work Phone: [facility] Work Phone: 09-19-2021 14:42-0400 Systolic blood pressure 112 mm[Hg] Dr. Nellie Rome Work Phone: [facility] Work Phone: 09-13-2021 12:30-0400 Diastolic blood pressure 63 mm[Hg] Dr. Nellie Rome Work Phone: [facility] Work Phone: 09-13-2021 12:30-0400 Systolic blood pressure 133 mm[Hg] Dr. Nellie Rome Work Phone: [facility] Work Phone: 09-13-2021 11:35-0400 Body temperature 97.7 [degF] Dr. Nellie Rome Work Phone: [facility] Work Phone: 09-13-2021 11:35-0400 Heart rate 58 /min Dr. Nellie Rome Work Phone: [facility] Work Phone: 09-13-2021 11:35-0400 Respiratory rate 16 /min Dr. Nellie Rome Work Phone: [facility] Work Phone: 09-13-2021 11:35-0400 SaO2% (BldA) [Mass fraction] 100 % Dr. Nellie Rome Work Phone: [facility] Work Phone: 09-13-2021 09:41-0400 Body height 160.[address] Nellie Rome Work Phone: [facility] Work Phone: 09-13-2021 09:41-0400 Body mass index (BMI) [Ratio] 37 kg/m2 Dr. Nellie Rome Work Phone: [facility] Work Phone: 09-13-2021 09:41-0400 Body weight [address] Nellie Rome Work Phone: [facility] Work Phone: 09-07-2021 13:26-0400 Body mass index (BMI) [Ratio] 38.7 kg/m2 Dr. Nellie Rome Work Phone: [facility] Work Phone: 09-07-2021 13:26-0400 Body temperature 97.3 [degF] Dr. Nellie Rome Work Phone: [facility] Work Phone: 09-07-2021 13:26-0400 Body weight 99.[address] Nellie Rome Work Phone: [facility] Work Phone: 09-07-2021 13:26-0400 Diastolic blood pressure 72 mm[Hg] Dr. Nellie Rome Work Phone: [facility] Work Phone: 09-07-2021 13:26-0400 Heart rate 77 /min Dr. Nellie Rome Work Phone: [facility] Work Phone: 09-07-2021 13:26-0400 Respiratory rate 18 /min Dr. Nellie Rome Work Phone: [facility] Work Phone: 09-07-2021 13:26-0400 SaO2% (BldA) [Mass fraction] 98 % Dr. Nellie Rome Work Phone: [facility] Work Phone: 09-07-2021 13:26-0400 Systolic blood pressure 117 mm[Hg] Dr. Nellie Rome Work Phone: [facility] Work Phone: 07-04-2021 11:18-0400 Body height 160.[address] Nellie Rome Work Phone: [facility] Work Phone: 07-04-2021 11:18-0400 Body mass index (BMI) [Ratio] 39.9 kg/m2 Dr. Nellie Rome Work Phone: [facility] Work Phone: 07-04-2021 11:18-0400 Body temperature 97.4 [degF] Dr. Nellie Rome Work Phone: [facility] Work Phone: 07-04-2021 11:18-0400 Body weight 102.[address] Nellie Rome Work Phone: [facility] Work Phone: 07-04-2021 11:18-0400 Diastolic blood pressure 77 mm[Hg] Dr. Nellie Rome Work Phone: [facility] Work Phone: 07-04-2021 11:18-0400 Heart rate 67 /min Dr. Nellie Rome Work Phone: [facility] Work Phone: 07-04-2021 11:18-0400 Respiratory rate 16 /min Dr. Nellie Rome Work Phone: [facility] Work Phone: 07-04-2021 11:18-0400 SaO2% (BldA) [Mass fraction] 95 % Dr. Nellie Rome Work Phone: [facility] Work Phone: 07-04-2021 11:18-0400 Systolic blood pressure 126 mm[Hg] Dr. Nellie Rome Work Phone: [facility] Work Phone: Encounters Encounter Date Encounter Type Care Provider Facility Start: 11-21-2024 ambulatory Nellie Rome Facility: [facility] Start: 11-17-2024 End: 11-17-[address] Marcos Givens DO -[facility] Work Phone: Start: 11-17-2024 End: 11-17-[address] Nellie Rome MD Work Phone: -[facility] Start: 11-11-[address] Marcos Littlejohn on DO -Radiation Oncology Start: 11-11-2024 ambulatory Marcos Givens Facility: [facility] Start: 11-11-2024 End: 11-11-[address] Harrison Schneider MD -[facility] [place] Work Phone: Start: 11-11-2024 End: 11-11-[address] Nellie Rome MD Work Phone: -[facility] [place] Start: 10-30-2024 End: 10-30-[address] Jeremiah Franco MD -[facility] Work Phone: Start: 10-30-2024 End: 10-30-[address] Nellie Rome MD Work Phone: -[facility] Start: 10-20-2024 End: 10-20-[address] Nellie Rome MD Work Phone: -Laboratory Start: 10-20-2024 End: 10-20-[address] Nellie Rome MD -Laboratory Work Phone: Start: 10-20-2024 End: 10-20-2024 ambulatory Nellie Rome Facility:[facility] Start: 10-14-2024 End: 10-14-[address] Jeremiah Franco MD -[facility] Work Phone: Start: 10-14-2024 End: 10-14-[address] Nellie Rome MD Work Phone: -[facility] Start: 10-07-2024 ambulatory Nelile Rome Facility: [facility] Start: 10-07-2024 Non-patient / Non-visit Dr. Jeremiah Franco MD -[facility] Start: 10-07-2024 End: 10-07-2024 Admission to same day surgery center Dr. Jeremiah Franco MD -[facility] Start: 10-07-2024 End: 10-07-[address] Nellie Rome MD Work Phone: -[facility] Start: 10-01-2024 End: 10-01-[address] Jeremiah Franco MD -[facility] Work Phone: Start: 10-01-2024 End: 10-01-[address] Nellie Rome MD Work Phone: -[facility] Start: 09-26-2024 End: 09-26-[address] Jeremiah Franco MD -[facility] Work Phone: Start: 09-26-2024 End: 09-26-[address] Nellie Rome MD Work Phone: -[facility] Start: 09-15-2024 End: 09-15-[address] Jeremiah Franco MD -[facility] Work Phone: Start: 09-15-2024 End: 09-15-[address] Nellie Rome MD Work Phone: -[facility] Start: 09-15-2024 End: 09-15-2024 ambulatory Jeremiah Franco Facility:[facility] Start: 08-29-2024 End: 08-29-[address] Nellie Rome MD Work Phone: [facility] Work Phone: Start: 08-29-2024 End: 08-29-[address] Nellie Rome MD -[facility] Work Phone: Start: 08-29-2024 End: 08-29-2024 ambulatory Nellie Gatom Facility:[facility] Start: 08-25-2024 End: 08-25-[address] Nellie Rome MD Work Phone: [facility] Work Phone: Start: 08-25-2024 End: 08-25-[address] Nellie Rome MD -[facility] Work Phone: Start: 08-25-2024 End: 08-25-2024 ambulatory Nellie Rome Facility:[facility] Start: 06-23-2024 End: 06-23-[address] Nellie Rome MD Work Phone: [facility] Work Phone: Start: 06-23-2024 End: 06-23-[address] Oswaldo Jones MD -Cat Scan, [facility] Work Phone: Start: 06-23-2024 End: 06-23-2024 ambulatory Oswaldo Jones Facility:[facility] Start: 05-28-2024 End: 05-28-2024 Patient encounter procedure Rani IRAHETAC -[facility] Work Phone: Start: 05-28-2024 End: 05-28-2024 ambulatory Nellie Latricia Facility:[facility] Start: 05-13-2024 [facility] Start: 04-03-2024 Encounter for genera l adult medical examination [facility] Start: 03-07-2024 End: 03-07-[address] Nellie Rome MD -Laboratory Work Phone: Start: 03-07-2024 End: 03-07-2024 ambulatory Nellie Daniilinda Facility:[facility] Start: 02-19-2024 End: 02-19-2024 ambulatory Nellie Rome Facility:[facility] Start: 06-29-2023 End: 06-29-[address] Nellie Rome Work Phone: [facility] Work Phone: Start: 06-29-2023 End: 06-29-[address] Nellie Rome Work Phone: [facility] Work Phone: Start: 06-05-2023 End: 06-05-[address] Nellie Rome Work Phone: [facility] Work Phone: Start: 06-05-2023 End: 06-05-[address] Nellie Rome Work Phone: [facility] Work Phone: Start: 06-01-2023 End: 06-01-[address] Nellie Rome Work Phone: [facility] Work Phone: Start: 06-01-2023 End: 06-01-[address] Nellie Rome Work Phone: [facility] Work Phone: Start: 05-23-2023 End: 05-23-[address] Nellie Rome Work Phone: [facility] Work Phone: Start: 05-18-2023 End: 05-18-2023 ambulatory [facility] Work Phone: Start: 05-18-2023 End: 05-18-2023 Patient encounter procedure [facility]Cat [facility], [facility] Work Phone: Start: 02-14-2023 End: 02-14-2023 ambulatory [facility] Work Phone: Start: 02-14-2023 End: 02-14-2023 Patient encounter procedure [facility] Work Phone: Start: 10-30-2022 End: 10-30-2022 ambulatory [facility] Work Phone: Start: 10-30-2022 End: 10-30-2022 Patient encounter procedure [facility], [facility] Work Phone: Start: 05-04-2022 End: 05-04-[address] Nellie Rome Work Phone: [facility] Work Phone: Start: 05-04-2022 End: 05-04-[address] Nellie Rome Work Phone: [facility] Start: 04-13-[address] Alessandra Rome Work Phone: [facility] Start: 04-04-2022 End: 04-04-[address] Nellie Rome Work Phone: [facility] Work Phone: Start: 04-04-2022 End: 04-04-[address] [facility] Start: 03-30-[address] Alessandra Rome Work Phone: [facility] [facility] Start: 03-24-2022 End: 03-24-[address] Nellie Rome Work Phone: [facility] Work Phone: Start: 03-24-2022 End: 03-24-[address] Nellie Rome Work Phone: [facility]-Outpatient Breast Imaging Start: 03-23-[address] Alessandra Rome Work Phone: [facility] Start: 03-17-2022 End: 03-17-[address] Nellie Rome Work Phone: [facility] Work Phone: Start: 03-17-2022 End: 03-17-[address] Nellie Rome Work Phone: [facility]-Laboratory, [facility] Start: 02-23-2022 End: 02-23-[address] Nellie Rome Work Phone: [facility]-Pulmonary Medicine [facility] Start: 01-05-2022 End: 01-05-[address] Nellie Rome Work Phone: [facility] Work Phone: Start: 01-05-2022 End: 01-05-[address] Nellie Rome Work Phone: [facility]-Sleep Lab Start: 12-01-2021 End: 12-01-[address] Nellie Rome Work Phone: [facility] Work Phone: Start: 12-01-2021 End: 12-01-[address] Nellie Rome Work Phone: [facility]Laboratory Start: 10-24-2021 End: 10-24-[address] Nellie Rome Work Phone: [facility] Start: 10-13-2021 Non-patient / Non-visit Dr. Dieter Rome Work Phone: [facility] Start: 10-12-2021 Non-patient / Non-visit Dr. Dieter Rome Work Phone: [facility] Start: 10-11-2021 Non-patient / Non-visit Dr. Dieter Rome Work Phone: [facility] Start: 10-11-2021 End: 10-13-2021 Evaluation and management of inpatient Dr. Nellie Rome Work Phone: [facility] Surgical 3 Start: 09-19-2021 End: 09-19-[address] Nellie Rome Work Phone: [facility] Start: 09-13-2021 Non-patient / Non-visit Dr. Dieter Rome Work Phone: [facility] Start: 09-13-2021 End: 09-13-2021 Admission to same day surgery center Dr. Nellie Rome Work Phone: [facility]-End[facility] Start: 09-08-2021 End: 09-08-[address] Nellie Rome Work Phone: [facility] Start: 09-08-2021 End: 09-13-2021 Non-patient / Non-visit Dr. Nellie Rome Work Phone: [facility] Start: 09-07-2021 End: 09-07-[address] Nellie Rome Work Phone: [facility] Start: 09-01-2021 End: 09-01-[address] Nellie Rome Work Phone: [facility] Start: 07-04-2021 End: 07-04-[address] Nellie Rome Work Phone: [facility] Date Procedure Procedure Detail Performing Clinician Start: 11-11-[address] Nellie Rome MD Work Phone: Start: 10-07-[address] Humza Rome MD Work Phone: Start: 10-07-[address] Dieter Rome MD Work Phone: Start: 10-07-[address] Humza Rome MD Work Phone: Start: 10-07-2024 Radionuclide sentine l lymph node study Dr. Nellie Rome MD Work Phone: Start: 08-25-2024 Screening mammography Mj Rome MD Work Phone: Start: 06-23-2024 Computed tomography of abdomen and [...] Treatment Date Care Activity Detail Author Start: 11-24-2024 ambulatory Ambulatory Facility:[facility] Start: 11-11-2024 CBC W Auto Differential panel - Blood [facility] Start: 11-11-2024 Comprehensive metabolic 2000 panel - Serum or Plasma [facility] Start: 11-11-2024 [facility] Start: 10-07-2024 Patient discharge [facility] Start: 10-07-2024 Anesthesia radical/modified radical breast ANESTH SURGERY OF BREAST [facility] Start: 10-07-2024 Bx/exc lymph node open deep axillary node BIOPSY/REMOVAL LYMPH NODES [facility] Start: 10-07-2024 Mastectomy partial PARTIAL MASTECTOMY [facility] Start: 10-07-2024 Perq breast loc device placemt 1st [facility] Start: 10-13-2021 Patient discharge [facility] Work Phone: Start: 10-12-2021 Introduction of urinary catheter [facility] Work Phone: Start: 10-12-2021 Measuring intake and output [facility] Work Phone: Start: 10-12-2021 Measuring intake and output [facility] Work Phone: Start: 10-12-2021 Removal of urinary catheter [facility] Work Phone: Start: 10-12-2021 [facility] Work Phone: Start: 10-12-2021 Measuring intake and output [facility] Work Phone: Start: 10-11-2021 Measuring intake and output [facility] Work Phone: Start: 10-11-2021 Following clinical pathway protocol [facility] Work Phone: Start: 10-11-2021 Ambulation therapy management [facility] Work Phone: Start: 10-11-2021 Application of intermittent pneumatic compression device [facility] Work Phone: Start: 10-11-2021 Catheterization of vein [facility] Work Phone: Start: 10-11-[address] [facility] Work Phone: Start: 10-11-2021 Elevation of head of bed [facility] Work Phone: Start: 10-11-2021 Incentive spirometry [facility] Work Phone: Start: 10-11-[address] [facility] Work Phone: Start: 10-11-2021 Oxygen therapy [facility] Work Phone: Start: 10-11-2021 Patient education [facility] Work Phone: Start: 10-11-2021 Procedures relating to eating and drinking [facility] Work Phone: Start: 10-11-2021 Taking patient vital signs [facility] Work Phone: Start: 10-11-2021 Wound care [facility] Work Phone: Start: 10-11-2021 [facility] Work Phone: Start: 10-11-2021 Introduction of urinary catheter [facility] Work Phone: Start: 10-11-2021 Measuring intake and output [facility] Work Phone: Start: 10-11-2021 Admission procedure [facility] Work Phone: Start: 09-13-2021 Colonoscopy w/biopsy single/multiple COLONOSCOPY AND BIOPSY [facility] Work Phone: Start: 09-13-2021 Colsc flx with directed submucosal njx any sbst COLONOSCOPY SUBMUCOUS NJX [facility] Work Phone: Start: 09-13-2021 Egd transoral biopsy single/multiple EGD BIOPSY SINGLE/MULTIPLE [facility] Work Phone: Start: 09-13-2021 Patient discharge [facility] Work Phone: Alanine aminotransfe rase [Enzymatic activity/volume] in Serum or Plasma [facility] Albumin [Mass/volume ] in Serum or Plasma [facility] Alkaline phosphatase [Enzymatic activity/volume] in Serum or Plasma [facility] Anion gap in Serum o r Plasma [facility] Bilirubin, total measurement [facility] BUN/Creatinine ratio [facility] Calcium [Mass/volume ] in Serum or Plasma [facility] Carbon dioxide, tota l [Moles/volume] in Central venous blood [facility] Creatinine [Mass/vol ume] in Serum or Plasma [facility] CT Abdomen and Pelvi s W contrast IV [facility] Erythrocyte mean corpuscular volume determination [facility] Glucose [Mass/volume ] in Serum or Plasma [facility] Hematocrit [Volume Fraction] of Blood [facility] Hemoglobin [Mass/vol ume] in Blood [facility] Leukocytes [#/volume ] in Blood [facility] Mean corpuscular hem oglobin concentration determination [facility] Mean corpuscular hem oglobin determination [facility] Measurement of renal function [facility] Neutrophil count [facility] Neutrophil percent differential count [facility] NM Whole body Bone Views [facility] Patient referral [facility] Work Phone: Platelets [#/volume] in Blood [facility] Potassium measurement [facility] Red blood cell count [facility] Red cell distributio n width determination [facility] Serum chloride measurement [facility] Sodium measurement [facility] Total protein measurement [facility] Urea nitrogen [Mass/ volume] in Serum or Plasma [facility] Work Phone: Payers Date Payer Category Payer Self-pay [id number] 2023 Medicare [id number] 2023 Unknown [id number] Private Health Insurance [facility] [id number] Unknown [id number] [id number] 62 Unknown [id number] 2.16.840.1.473683.3.579.2.4 62 Unknown [id number] 2.16.840.1.705564.3.579.2.4 62 Unknown [id number] 2.16.840.1.573013.3.579.2.4 62 Unknown [id number] 2.16.840.1.106050.3.579.2.4 62 Unknown [id number] 2.16.840.1.927576.3.579.2.4 62 Unknown [id number] 2.16.840.1.541181.3.579.2.4 62 Unknown [id number] 2.16.840.1.312042.3.579.2.4 62 Unknown [id number] 2.16.840.1.859913.3.579.2.4 62 Unknown [id number] 2.16.840.1.667889.3.579.2.4 62 Unknown [id number] 2.16.840.1.543863.3.579.2.4 62 Unknown [id number] 2.16.840.1.765763.3.579.2.4 62 Unknown [id number] 2.16.840.1.651033.3.579.2.4 62 Unknown [id number] 2.16.840.1.863315.3.579.2.4 62 Unknown [id number] 2.16.840.1.227053.3.579.2.4 62 Unknown [id number] 2.16.840.1.413616.3.579.2.4 62 Unknown [id number] 2.16.840.1.069818.3.579.2.4 62 Unknown [id number] 2.16.840.1.649934.3.579.2.4 62 Unknown [id number] 2.16.840.1.981536.3.579.2.4 62 Unknown [id number] 2.16.840.1.565764.3.579.2.4 62 Unknown [id number] 2.16.840.1.002536.3.579.2.4 62 Social History Date Type Detail Facility Start: 07-04-2021 End: 05-23-2023 Tobacco smoking status NHIS Unknown if ever smoked [facility] Start: 1955 Sex Assigned At Female [facility] Start: 05-23-2023 End: 10-02-2024 Tobacco smoking status NHIS Never smoked tobacco (finding) [facility] Start: 06-27-2024 Sex Female (finding) [facility] Medical Equipment Procedure Code Equipment Code Equipment Origin al Text Equipment Identifier Dates Robot-assisted simple nephrectomy 45mm Vascular Reload FDA Start: 02-09-2021 Robot-assisted simple nephrectomy CLIP,HEMRAKEL GARCIA FDA Start: 02-09-2021 Robot-assisted simple nephrectomy CLIP,HEMRAKEL GARCIA FDA Start: 02-09-2021 Robot-assisted simple nephrectomy CLIP,HEMRAKEL GARCIA FDA Start: 02-09-2021 Robot-assisted simple nephrectomy CLIP,HEMRAKEL GARCIA FDA Start: 02-09-2021 Robot-assisted simple nephrectomy 45mm Vascular Reload FDA Start: 02-09-2021 Robot-assisted simple nephrectomy CLIP,HEMOLOCK SIRENA GARCIA FDA Start: 02-09-2021 Robot-assisted simple nephrectomy CLIP,HEMOLOJUNE GARCIA FDA Start: 02-09-2021 Robot-assisted simple nephrectomy CLIP,HEMOLOJUNE GARCIA FDA Start: 02-09-2021 Robot-assisted simple nephrectomy CLIP,HEMOLOCK SIRENA GARCIA FDA Start: 02-09-2021 Robot-assisted simple nephrectomy 45mm Vascular Reload FDA Start: 02-09-2021 Robot-assisted simple nephrectomy CLIP,HEMRAKEL GARCIA FDA Start: 02-09-2021 Robot-assisted simple nephrectomy CLIP,HEMOLOCK [...] Reload FDA Start: 02-09-2021 Robot-assisted simple nephrectomy CLIP,HEMOLOJUNE [...] Start: 02-09-2021 Robot-assisted simple nephrectomy CLIP,HEMOLOCK SIRENA GARCIA FDA Start: 02-09-2021 Robot-assisted simple nephrectomy CLIP,HEMOLOCK LG NUVIACK FDA Start: 02-09-2021 Robot-assisted simple nephrectomy CLIP,HEMOLOCK LG NUVIACK FDA Start: 02-09-2021 Robot-assisted simple nephrectomy CLIP,HEMOLOJUNE GARCIA FDA Start: 02-09-2021 Robot-assisted simple nephrectomy [...] WECK FDA Start: 02-09-2021 Robot-assisted simple nephrectomy CLIP,HEMOLOJUNE [...] Start: 02-09-2021 Robot-assisted simple nephrectomy CLIP,HEMOLOCK LG UNVIACK FDA Start: 02-09-2021 Robot-assisted simple nephrectomy CLIP,HEMOLOCK [...] Reload FDA Start: 02-09-2021 Robot-assisted simple nephrectomy CLIP,HEMOLOJUNE [...] Start: 02-09-2021 Robot-assisted simple nephrectomy CLIP,HEMOLOCK SIRENA GARCIA FDA Start: 02-09-2021 Robot-assisted simple nephrectomy CLIP,HEMOLOCK LG NUVIACK FDA Start: 02-09-2021 Robot-assisted simple nephrectomy CLIP,HEMOLOCK LG JOSE FDA Start: 02-09-2021 Robot-assisted simple nephrectomy CLIP,HEMOLOCK SIRENA GARCIA FDA Start: 02-09-2021 Robot-assisted simple nephrectomy [...] WECK FDA Start: 02-09-2021 Robot-assisted simple nephrectomy CLIP,HEMMALCOLMJUNE SIRENA GARCIA FDA Start: 02-09-2021 Robot-assisted simple nephrectomy 45mm Vascular Reload FDA Start: 02-09-2021 Robot-assisted simple nephrectomy CLIP,HEMMALCOLMJUNE SIRENA GARCIA FDA Start: 02-09-2021 Robot-assisted simple nephrectomy CLIP,HEMMALCOLMJUNE SIRENA GARCIA FDA Start: 02-09-2021 Robot-assisted simple nephrectomy CLIP,HEMMALCOLMJUNE SIRENA GARCIA FDA Start: 02-09-2021 Robot-assisted simple nephrectomy CLIP,HEMOLOJUNE LG JOSE FDA Start: 02-09-2021 Robot-assisted simple nephrectomy 45mm Vascular Reload FDA Start: 02-09-2021 Robot-assisted simple nephrectomy CLIP,AIDEJUNE PACK JOSE FDA Start: 02-09-2021 Robot-assisted simple nephrectomy CLIP,HEMMALCOLMJUNE SIRENA GARCIA FDA Start: 02-09-2021 Robot-assisted simple nephrectomy CLIP,AIDEJUNE PACK JOSE FDA Start: 02-09-2021 Robot-assisted simple nephrectomy CLIP,HEMMALCOLMJUNE SIRENA GARCIA FDA Start: 02-09-2021 Robot-assisted simple nephrectomy 45mm Vascular Reload FDA Start: 02-09-2021 Robot-assisted simple nephrectomy CLIP,AIDEJUNE PACK JOSE FDA Start: 02-09-2021 Robot-assisted simple nephrectomy CLIP,AIDEJUNE PACK NUVIAJUNE FDA Start: 02-09-2021 Robot-assisted simple nephrectomy CLIP,HEMMALCOLMJUNE SIRENA GARCIA FDA Start: 02-09-2021 Robot-assisted simple nephrectomy CLIP,AIDEJUNE PACK NUVIAJUNE FDA Start: 02-09-2021 CLIP,AIDEJUNE GARCIA FDA Start: 10-11-2021 CLIPAIDEJUNE GARCIA FDA Start: 10-11-2021 RELOAD, SR75 SELECTABLE FDA Start: 10-11-2021 RELOAD, SR75 SELECTABLE FDA Start: 10-11-2021 RELOAD, SR75 SELECTABLE FDA Start: 10-11-2021 JOSE ALANIZ FDA Start: 10-11-2021 Ligation clip, synthetic polymer, non-bioabsorbable ([id number] FDA Start: 10-11-2021 COLLINBEKARAKEL GARCIA FDA Start: 10-11-2021 CLIP,HEMRAKEL PEDERSEN FDA Start: 10-11-2021 RELOAD, SR75 SELECTABLE FDA Start: 10-11-2021 RELOAD, SR75 SELECTABLE FDA Start: 10-11-2021 RELOAD, SR75 SELECTABLE FDA Start: 10-11-2021 STAPLER,TX60B FDA Start: 10-11-2021 CLIP,HEMMALCOLMJUNE PACK NUVIA FDA Start: 10-11-2021 CLIP,HEMRAKEL NUVIA FDA Start: 10-11-2021 RELOAD, SR75 SELECTABLE FDA Start: 10-11-2021 RELOAD, SR75 SELECTABLE FDA Start: 10-11-2021 RELOAD, SR75 SELECTABLE FDA Start: 10-11-2021 STAPLER,TX60B FDA Start: 10-11-2021 CLIP,HEMMALCOLMJUNE PACK NUVIA FDA Start: 10-11-2021 CLIP,HEMMALCOLMJUNE PACK NUVIA FDA Start: 10-11-2021 RELOAD, SR75 SELECTABLE FDA Start: 10-11-2021 RELOAD, SR75 SELECTABLE FDA Start: 10-11-2021 RELOAD, SR75 SELECTABLE FDA Start: 10-11-2021 STAPLER,TX60B FDA Start: 10-11-2021 CLIP,AIDEJUNE PACK NUVIA FDA Start: 10-11-2021 CLIP,HEMRAKEL PEDERSEN FDA Start: 10-11-2021 RELOAD, SR75 SELECTABLE FDA Start: 10-11-2021 RELOAD, SR75 SELECTABLE FDA Start: 10-11-2021 RELOAD, SR75 SELECTABLE FDA Start: 10-11-2021 STAPLER,TX60B FDA Start: 10-11-2021 CLIP,HEMRAKEL SIRENA NUVIA FDA Start: 10-11-2021 CLIP,HEMRAKEL PEDERSEN FDA Start: 10-11-2021 RELOAD, SR75 SELECTABLE FDA Start: 10-11-2021 RELOAD, SR75 SELECTABLE FDA Start: 10-11-2021 RELOAD, SR75 SELECTABLE FDA Start: 10-11-2021 STAPLER,TX60B FDA Start: 10-11-2021 CLIP,HEMMALCOLMJUNE PEDERSEN FDA Start: 10-11-2021 CLIP,HEMMALCOLMJUNE PACK NUVIA FDA Start: 10-11-2021 RELOAD, SR75 SELECTABLE FDA Start: 10-11-2021 RELOAD, SR75 SELECTABLE FDA Start: 10-11-2021 RELOAD, SR75 SELECTABLE FDA Start: 10-11-2021 STAPLER,TX60B FDA Start: 10-11-2021 CLIP,HEMRAKEL PEDERSEN FDA Start: 10-11-2021 CLIP,HEMRAKEL PEDERSEN FDA Start: 10-11-2021 RELOAD, SR75 SELECTABLE FDA Start: 10-11-2021 RELOAD, SR75 SELECTABLE FDA Start: 10-11-2021 RELOAD, SR75 SELECTABLE FDA Start: 10-11-2021 STAPLER,TX60B FDA Start: 10-11-2021 CLIP,AIDEJUNE PEDERSEN FDA Start: 10-11-2021 CLIP,AIDEJUNE PACK NUVIA FDA Start: 10-11-2021 RELOAD, SR75 SELECTABLE FDA Start: 10-11-2021 RELOAD, SR75 SELECTABLE FDA Start: 10-11-2021 RELOAD, SR75 SELECTABLE FDA Start: 10-11-2021 STAPLER,TX60B FDA Start: 10-11-2021 CLIP,AIDEJUNE PACK NUVIA FDA Start: 10-11-2021 CLIP,AIDEJUNE SIRENA PEDERSEN FDA Start: 10-11-2021 RELOAD, SR75 SELECTABLE FDA Start: 10-11-2021 RELOAD, SR75 SELECTABLE FDA Start: 10-11-2021 RELOAD, SR75 SELECTABLE FDA Start: 10-11-2021 STAPKELLETX60B FDA Start: 10-11-2021 CLIP,HEMRAKEL PEDERSEN FDA Start: 10-11-2021 CLIP,ELICIA PEDERSEN FDA Start: 10-11-2021 RELOAD, SR75 SELECTABLE FDA Start: 10-11-2021 RELOAD, SR75 SELECTABLE FDA Start: 10-11-2021 RELOAD, SR75 SELECTABLE FDA Start: 10-11-2021 STAPLER,TX60B FDA Start: 10-11-2021 CLIP,HEMMALCOLMJUNE PEDERSEN FDA Start: 10-11-2021 CLIP,HEMMALCOLMJUNE NUVIA FDA Start: 10-11-2021 RELOAD, SR75 SELECTABLE FDA Start: 10-11-2021 RELOAD, SR75 SELECTABLE FDA Start: 10-11-2021 RELOAD, SR75 SELECTABLE FDA Start: 10-11-2021 STAPKELLETX60B FDA Start: 10-11-2021 CLIP,ELICIA PEDERSENJUNE FDA Start: 10-11-2021 CLIP,ELICIA PEDERSEN FDA Start: 10-11-2021 RELOAD, SR75 SELECTABLE FDA Start: 10-11-2021 RELOAD, SR75 SELECTABLE FDA Start: 10-11-2021 RELOAD, SR75 SELECTABLE FDA Start: 10-11-2021 STAPLERTX60B FDA Start: 10-11-2021 CLIP,AIDEJUNE GARCIA FDA Start: 10-11-2021 CLIP,AIDEJUNE GARCIA FDA Start: 10-11-2021 RELOAD, SR75 SELECTABLE FDA Start: 10-11-2021 RELOAD, SR75 SELECTABLE FDA Start: 10-11-2021 RELOAD, SR75 SELECTABLE FDA Start: 10-11-2021 STAPKELLETX60B FDA Start: 10-11-2021 CLIP,AIDEJUNE GARCIA FDA Start: 10-11-2021 CLIP,AIDEJUNE SIRENA PEDERSENJUNE FDA Start: 10-11-2021 RELOAD, SR75 SELECTABLE FDA Start: 10-11-2021 RELOAD, SR75 SELECTABLE FDA Start: 10-11-2021 RELOAD, SR75 SELECTABLE FDA Start: 10-11-2021 STAPKELLETX60B FDA Start: 10-11-2021 CLIP,AIDEJUNE GARCIA FDA Start: 10-11-2021 CLIP,ELICIA PEDERSEN FDA Start: 10-11-2021 RELOAD, SR75 SELECTABLE FDA Start: 10-11-2021 RELOAD, SR75 SELECTABLE FDA Start: 10-11-2021 RELOAD, SR75 SELECTABLE FDA Start: 10-11-2021 STAPLER,TX60B FDA Start: 10-11-2021 CLIP,AIDEJUNE GARCIA FDA Start: 10-11-2021 CLIP,ELICIA PACK NUVIA FDA Start: 10-11-2021 RELOAD, SR75 SELECTABLE FDA Start: 10-11-2021 RELOAD, SR75 SELECTABLE FDA Start: 10-11-2021 RELOAD, SR75 SELECTABLE FDA Start: 10-11-2021 STAPKELLETX60B FDA Start: 10-11-2021 CLIP,ELICIA PEDERSEN FDA Start: 10-11-2021 CLIP,ELICIA PEDERSEN FDA Start: 10-11-2021 RELOAD, SR75 SELECTABLE FDA Start: 10-11-2021 RELOAD, SR75 SELECTABLE FDA Start: 10-11-2021 RELOAD, SR75 SELECTABLE FDA Start: 10-11-2021 STAPKELLETX60B FDA Start: 10-11-2021 CLIP,ELICIA GARCIA FDA Start: 10-11-2021 CLIP,ELICIA GARCIA FDA Start: 10-11-2021 RELOAD, SR75 SELECTABLE FDA Start: 10-11-2021 RELOAD, SR75 SELECTABLE FDA Start: 10-11-2021 RELOAD, SR75 SELECTABLE FDA Start: 10-11-2021 CORBINTX60B FDA Start: 10-11-2021 CLIP,ELICIA PEDERSEN FDA Start: 10-11-2021 CLIP,ELICIA PEDERSEN FDA Start: 10-11-2021 RELOAD, SR75 SELECTABLE FDA Start: 10-11-2021 RELOAD, SR75 SELECTABLE FDA Start: 10-11-2021 RELOAD, SR75 SELECTABLE FDA Start: 10-11-2021 STAPKELLE,TX60B FDA Start: 10-11-2021 CLIP,ELICIA PEDERSEN FDA Start: 10-11-2021 CLIP,ELICIA PEDERSEN FDA Start: 10-11-2021 RELOAD, SR75 SELECTABLE FDA Start: 10-11-2021 RELOAD, SR75 SELECTABLE FDA Start: 10-11-2021 RELOAD, SR75 SELECTABLE FDA Start: 10-11-2021 STAPKELLE,TX60B FDA Start: 10-11-2021 CLIP,ELICIA PEDERSEN FDA Start: 10-11-2021 CLIP,ELICIA PEDERSEN FDA Start: 10-11-2021 RELOAD, SR75 SELECTABLE FDA Start: 10-11-2021 RELOAD, SR75 SELECTABLE FDA Start: 08-02-2022 RELOAD, SR75 SELECTABLE FDA Start: 10-11-2021 CORBINTX60B FDA Start: 10-11-2021 CLIP,ELICIA GARCIA FDA Start: 10-11-2021 CLIP,ELICIA GARCIA FDA Start: 10-11-2021 RELOAD, SR75 SELECTABLE FDA Start: 10-11-2021 RELOAD, SR75 SELECTABLE FDA Start: 10-11-2021 RELOAD, SR75 SELECTABLE FDA Start: 10-11-2021 STAPKELLETX60B FDA Start: 10-11-2021 CLIP,ELICIA GARCIA FDA Start: 10-11-2021 CLIP,ELICIA GARCIA FDA Start: 10-11-2021 RELOAD, SR75 SELECTABLE FDA Start: 10-11-2021 RELOAD, SR75 SELECTABLE FDA Start: 10-11-2021 RELOAD, SR75 SELECTABLE FDA Start: 10-11-2021 STAPKELLETX60B FDA Start: 10-11-2021 CLIP,ELICIA GARCIA FDA Start: 10-11-2021 CLIP,ELICIA GARCIA FDA Start: 10-11-2021 RELOAD, SR75 SELECTABLE FDA Start: 10-11-2021 RELOAD, SR75 SELECTABLE FDA Start: 10-11-2021 RELOAD, SR75 SELECTABLE FDA Start: 10-11-2021 STAPKELLETX60B FDA Start: 10-11-2021 CLIP,ELICIA GARCIA FDA Start: 10-11-2021 CLIP,ELICIA GARCIA FDA Start: 10-11-2021 RELOAD, SR75 SELECTABLE FDA Start: 10-11-2021 RELOAD, SR75 SELECTABLE FDA Start: 10-11-2021 RELOAD, SR75 SELECTABLE FDA Start: 10-11-2021 STAPKELLE,TX60B FDA Start: 10-11-2021 Goals Date Patient Goal Desired Activity /State Functional Status Date Assessment Result Facility 10-13-2021 Functional status Ambulates [facility] Work Phone: 10-12-2021 Functional status Tolerates Activity Well [facility] Work Phone: Mental Status Date Assessment Result Facility 07-29-2025 Cognitive function Voice/Name [facility] Work Phone: 10-12-2021 Cognitive function Voice/Name [facility] Work Phone: 09-13-2021 Cognitive function Level Of Consciousness Drowsy [facility] Work Phone: 09-13-2021 Cognitive function Patient Ryan edge Person;Place;Time [facility] Work Phone: Clinical Notes 05-04-2022 to 10-07-2024 Note Date & Type Note Facility 10-07-2024 Consult note Note Date/Time October 07, 2024 3:54 pm [facility] Medical Records Department [address] [place] [address] Anesthesia Postop Eval I 10/07/24 1553 MR#: [id number] Acct: [id number] Name: NORI RODRIGUEZ Rep #:[id number] : 1955 69 From: Mike Walton CRNA PCP: Dr. Nellie Rome MD Status:REG SDC Y Race: C Location: [place] [address] Anesthesia: Postop Eval I Current Vital Signs Temperature: 97.7 F Pulse Rate: 63 Blood Pressure: 143/71 Respiratory Rate: 20 Pulse Ox: 95 Oxygen Delivery Method: Room Air Assessment Airway patent: Yes Spontaneous unlabored respirations: Yes Mental status: Awake and Calm nausea: No Vomiting: No Anesthesia Complication: No Fluid Hydration Crystalloid volume administer (ml): 1,600 Total IV fluid infused: 1,600 Progress Note Anesthesia document: Postop Eval 1 completed: Yes 10/07/24 1554 <Electronically signed by Mike rosario CRNA> Date _ Mike Walton CRNA Cosigner Signature: Date CC: ~ Signed [facility] Work Phone: 1(437) 958-514207-29-2025 Discharge summary Author Jeremiah Franco [facility] Note Date/Time October 07, 2024 3:50 pm [facility] Medical Records Department [address] [place] [address] Instructions for Home/Discharge Instructions 10/07/24 1537 MR#: [id number] Acct: [id number] Name: NORI RODRIGUEZ Rep #:[id number] : 1955 69 From: Jeremiah Franco MD PCP: Dr. Nellie Rome MD Status:REG [facility] Discharge Instructions Diet Discharge Diet: Light diet - advance as tolerated Activity Discharge Activity: Return to Normal Activity and May Shower May shower in (days): 2 Ice area for (Minutes): 30 Dressing / Incision Call your doctor if your incision/area has: Continuous Slow Oozing, Sudden Increased Bleeding, Increased Pain/ Swelling, Increased Redness, Foul Smelling Discharge and Swelling at the incision site Call your doctor if you observe: Fever of 101 or Higher Cleanse incision/area with: Soap & Water Additional Dressing/Incision Instructions:: Wear postop bra for comfort and support; empty and record TANVIR drain daily Follow Up Care Please Follow Up With: Jeremiah Franco MD When: 1 week. Please call office to schedule appointment Test Results: Test results from this visit will be discussed in further detail at your follow- up appointment, if applicable. Discharge Plan Admission Primary Reason for Your Visit: Right breast lumpectomy Attending Provider: Jeremiah Franco Primary Care Provider: Nellie Rome Instructions Print Language: Rwandan Discharge Orders/Prescriptions Prescriptions: New oxycodone 5 mg capsule 5 mg PO Q8H PRN (Reason: pain) 4 Days Qty: 10 0RF Continued omega-3 fatty acids [Fish Oil Concentrate] 1,000 mg capsule 2,000 mg PO QDAY magnesium citrate 125 mg capsule 250 mg PO DAILY lisinopril-hydrochlorothiazide 20-25 mg tablet 1 tab PO QDAY cholecalciferol (vitamin D3) 25 mcg (1,000 unit) capsule 25 mcg PO QDAY Multivitamin Women 50 Plus 8 mg iron-400 mcg-50 mcg tablet 1 tab PO QDAY acetaminophen [Tylenol] 325 mg Tablet 650 mg PO Q4H PRN (Reason: Pain) herbal sleep supplement 2 tab PO .nightly PRN (Reason: sleep aid) Referrals / Follow Up: Nellie Rome MD [Primary Care Provider] - Disposition Disposition (needs filled in before D/C Order can be placed): Home, Self Care 10/07/24 1550<Electronically signed by Jeremiah Franco MD>Jeremiah Franco MD CC: Dr. Nellie Rome MD ~ Signed [facility] Work Phone: [phone] 160-313607-29-2025 Consult note [facility] Medical Records Department [address] [place] [address] Anesthesia Postop Eval I 10/07/24 1553 MR#: [id number] Acct: [id number] Name: NORI RODRIGUEZ Rep #:[id number] : 1955 69 From: Mike Walton CRNA PCP: Dr. Nellie Rome MD Status:REG [facility] Y Race: C Location: [place] [address] Anesthesia: Postop Eval I Current Vital Signs Temperature: 97.7 F Pulse Rate: 63 Blood Pressure: 143/71 Respiratory Rate: 20 Pulse Ox: 95 Oxygen Delivery Method: Room Air Assessment Airway patent: Yes Spontaneous unlabored respirations: Yes Mental status: Awake and Calm nausea: No Vomiting: No Anesthesia Complication: No Fluid Hydration Crystalloid volume administer (ml): 1,600 Total IV fluid infused: 1,600 Progress Note Anesthesia document: Postop Eval 1 completed: Yes 10/07/24 1554 y ORTHOPTIST> Date _ Mike Walton CRNA Cosigner Signature: Date CC: ~ Signed [facility]07-29-2025 Discharge summary [facility] Medical Records Department [address] [place] [address] Instructions for Home/Discharge Instructions 10/07/24 1537 MR#: [id number] Acct: [id number] Name: NORI RODRIGUEZ Rep #:[id number] : 1955 69 From: Jeremiah Franco MD PCP: Dr. Nellie Rome MD Status:REG [facility] Discharge Instructions Diet Discharge Diet: Light diet - advance as tolerated Activity Discharge Activity: Return to Normal Activity and May Shower May shower in (days): 2 Ice area for (Minutes): 30 Dressing / Incision Call your doctor if your incision/area has: Continuous Slow Oozing, Sudden Increased Bleeding, Increased Pain/ Swelling, Increased Redness, Foul Smelling Discharge and Swelling at the incision site Call your doctor if you observe: Fever of 101 or Higher Cleanse incision/area with: Soap & Water Additional Dressing/Incision Instructions:: Wear postop bra for comfort and support; empty and record TANVIR drain daily Follow Up Care Please Follow Up With: Jeremiah Franco MD When: 1 week. Please call office to schedule appointment Test Results: Test results from this visit will be discussed in further detail at your follow- up appointment, if applicable. Discharge Plan Admission Primary Reason for Your Visit: Right breast lumpectomy Attending Provider: Jeremiah Franco Primary Care Provider: Nellie Rome Instructions Print Language: Rwandan Discharge Orders/Prescriptions Prescriptions: New oxycodone 5 mg capsule 5 mg PO Q8H PRN (Reason: pain) 4 Days Qty: 10 0RF Continued omega-3 fatty acids [Fish Oil Concentrate] 1,000 mg capsule 2,000 mg PO QDAY magnesium citrate 125 mg capsule 250 mg PO DAILY lisinopril-hydrochlorothiazide 20-25 mg tablet 1 tab PO QDAY cholecalciferol (vitamin D3) 25 mcg (1,000 unit) capsule 25 mcg PO QDAY Multivitamin Women 50 Plus 8 mg iron-400 mcg-50 mcg tablet 1 tab PO QDAY acetaminophen [Tylenol] 325 mg Tablet 650 mg PO Q4H PRN (Reason: Pain) herbal sleep supplement 2 tab PO .nightly PRN (Reason: sleep aid) Referrals / Follow Up: Nellie Rome MD [Primary Care Provider] - Disposition Disposition (needs filled in before D/C Order can be placed): Home, Self Care 10/07/24 1550Stpratima Franco MD CC: Dr. Nellie Rome MD ~ Signed [facility]07-29-2025 History and physical note Author Jeremiahroyer Franco [facility] Note Date/Time October 07, 2024 12:5 3pm [facility] Medical Records Department [address] [place] [address] History & Physical Exam 10/07/24 1251 MR#: [id number] Acct: [id number] Name: NORI RODRIGUEZ Rep #:[id number] : 1955 69 From: Jeremiah Franco MD PCP: Dr. Nellie Rome MD Status:[facility] Location: [place] [address] HPI - General General Date of Admission: 10/07/24 Date of Service: 10/07/24 Chief Complaint: RIGHT BREAST CANCER HPI Narrative NORI RODRIGUEZ, is a 69 F who presents for lumpectomy and SLN biopsy for invasive breast [facility] Medical History History of echocardiogram Fibromyalgia Abnormal ultrasound of breast Abnormal mammogram Mass Cancer Anemia Syncope Stool color black Stool bloody Gastric reflux Chest pain Abdominal pain Diverticulitis Wears glasses Anxiety Thyroid disease Arthritis History of renal disease Back pain History of diverticulitis Non-smoker CPAP (continuous positive airway pressure) dependence Shortness of breath on exertion History of pain when walking Nodular thyroid disease Hemorrhoids Sleep apnea Hypertension Home Medications ?Medication ?Instructions ?Recorded ?Last Taken ?Type omega-3 fatty acids 1,000 mg 2,000 mg PO QDAY SUPPLEME NT 06/26/17 10/06/24 History capsule (Fish Oil Concentrate) acetaminophen 325 mg tablet 650 mg PO Q4H PRN Pain Unknown History (Tylenol) magnesium citrate 125 mg capsule 250 mg PO DAILY 05/2210/06/24 History lisinopril 20 1 tab PO QDAY 05/28/2410/06 History mg-hydrochlorothiazide 25 mg tablet cholecalciferol (vitamin D3) 25 25 mcg PO QDAY 10/06/24 History mcg (1,000 unit) capsule ugjttvvx-lgwc-fgza 8 mg-folic 400 1 tab PO QDAY 10/06/24 History mcg-K 50 mcg-lutein 300 mcg tablet (Multivitamin Women 50 Plus) herbal sleep supplement 2 tab PO .nightly PRN sleep aid 10/07/24 10/06/24 History Allergy/AdvReac Type Severity Reaction Status Date / Time acetazolamide (From Diamox AdvReac DEPRESSION Verified 10/07/24 10:24 Sequels) duloxetine (From Cymbalta) AdvReac DEPRESSION Verified 10/07/24 10:24 tetracycline AdvReac DEPRESSION Verified 10/07/24 10:24 Family History Mother Colon cancer Hypertension Father Diabetes Surgical History H/O lumpectomy History of cholecystectomy History of colectomy History of esophagogastroduodenoscopy (EGD) History of nephrectomy, right Hx of colonoscopy S/P thyroid biopsy history excision right breast lump Social History household members: spouse housing: house Smoking Status: Never smoker alcohol intake: never substance use type: does not use Vital Signs Vital Signs Vital Signs: 10/07/24 10:26 10/07/24 10:26 10/07/24 11:20 Temperature 97.8 F 97.8 F Temperature Source Temporal Pulse Rate 71 71 Respiratory Rate 12 12 Respiratory Pattern Normal Blood Pressure 143/69 H 143/69 H Blood Pressure Mean 93 Blood Pressure Source Monitor Blood Pressure Position Semi-Fowlers Blood Pressure Location Left Arm Pulse Ox 98 98 Oxygen Delivery Method Room Air Room Air Weight Weight: 205 lb 0.478 oz Body Mass Index (BMI) 36.3 Physical Exam Const alert, oriented x3 and no apparent distress Results Imaging Radiology Impression Bascom Node 10/07/24 10:50 IMPRESSION: Subdermal injection above the right nipple for sentinel node imaging. Reading Location: [id number] Assessment & Plan Assessment/Plan (1) Invasive ductal carcinoma of breast: PLAN: Plan right breast lumpectomy abd SLN bx today 10/07/24 1253 <Electronically signed by Jeremiah Franco MD> Cosigner Signature (if applicable): CC: Dr. Nellie Rome MD; Dr. Jeremiah Franco MD~ Signed [facility] Work Phone: 1(690) 160-303907-29-2025 Consult note Author Keaton Murphy [facility] Note Date/Time October 07, 2024 11:2 0am [facility] Medical Records Department [address] [place] [address] Pre-Anesthesia Evaluation 10/07/24 1107 MR#: [id number] Acct: [id number] Name: NORI RODRIGUEZ Rep #:[id number] : 1955 69 From: Keaton Murphy MD PCP: Dr. Nellie Rome MD Status:REG [facility] Y Race: C Location: [place] [address] ASA Classification* ASA Classification ASA Classification: 3 Assessment & Plan Anesthesia* Anesthesia Assessment Anesthesia Assessment: Discussed sedation and/or anesthesia options, risks, benefits, and alternatives with patient/parents/legal guardian/POA. Questions invited. The patient/parents/legal guardian/POA seems to understand and agrees to proceedwith anesthesia plan. Reviewed the physical assessment, medical history, allergy history and patient home medications list prior to surgery/procedure/anesthetic and documented any changes. Performed airway and anesthesia risk assessments. Anesthesia Type Anesthesia Type: General History Source History Obtained from:: Patient and Chart Anesthesia Focused Assessment* Temperature: 97.8 F Pulse Rate: 71 Blood Pressure: 143/69 Respiratory Rate: 12 Pulse Ox: 98 Oxygen Delivery Method: Room Air Airway Assessment Mouth opens: >3 cm Mallampati Score: IV Teeth Condition: Intact and Partial (Patient is missing 1 tooth. Rest of the teeth are tight.) Neck Range of motion (ROM): Full ROM Labs Anesthesia Preop lab: CBC WBC 7.0 K/mm3 (4.4-11.0) 11/13/23 10:53 11/13/23 RBC 4.68 M/mm3 (4.2-5.4) 11/13/23 10:53 11/13/23 Hgb 12.7 g/dL (12.0-15.0) 11/13/23 10:53 11/13/23 Hct 39.4 % (37-47) 11/13/23 10:53 11/13/23 Plt Count 354 K/mm3 (150-450) 11/13/23 10:53 11/13/23 CHEMISTRY Potassium 3.7 mmol/L (3.5-5.1) 02/19/24 13:17 02/19/24 Sodium 141 mmol/L (136-145) 02/19/24 13:17 02/19/24 Magnesium 2.0 mg/dL (1.6-2.6) 10/06/21 11:44 10/06/21 BUN 23 mg/dL (7-18) H 02/19/24 13:17 02/19/24 Creatinine 1.29 mg/dL (0.55-1.02) H 02/19/24 13:17 Glucose 121 mg/dL (74-106) H 02/19/24 13:17 02/19/24 POC Glucose 131 mg/dL (74-106) H 10/12/21 11:17 10/12/21 TSH 0.631 uIU/mL (0.358-3.740) 02/19/24 13:17 02/09 COAG PT 13.7 SECONDS (11.7-14.9) 10/06/21 11:44 Pre-Assessment Diagnosis/Proposed Procedure Planned Operative Procedure(s): RIGHT BREAST STEREOWIRE LOCALIZED LUMPECTOMY WITH SENTINEL LYMPH NODE BIOPSY, POSSIBLE NODE DISSECTION Anesthesia History Anesthesia History - premium cancellation clerk: Anesthesia History - premium cancellation clerk Hx Hospitalization No 10/02/24 09:28 Any Problems With Anesthesia Yes: VERY SENSITIVE TO MEDS 10/02/24 09:28 , NAUSEA Cholinesterase deficiency No 10/02/24 09:28 You/Your Family Experience No 10/02/24 09:28 fever (hyperthermia) with Relationship Recent Exposure to Contagious No 10/07/24 10:26 Disease Does patient have nerve No 10/02/24 09:28 stimulator Patient instructed to have device shut off --Does patient have Pacemaker No 10/07/24 10:26 or ICD? When Was Last Pacemaker Check QUESTION #4 FULL TEXT: You/Your Family Experience fever (hyperthermia) with Anesthesia Last Oral Intake Last Oral intake: Last Oral Intake NPO since 06:00 10/07/24 10:26 Meds taken in AM with sips of No 10/07/24 10:26 water? Meds patient instructed to take am of surgery Any additional information?: Yes NPO since: 06:00 (Patient had tea at 6 AM.) Meds taken in AM with sips of water?: No PONV PONV - premium cancellation clerk: PONV - premium cancellation clerk Female Yes 10/02/24 09:28 HX of Motion Sickness Yes 10/02/24 09:28 HX of N/V After Surgery Yes 10/02/24 09:28 Non-Smoker Yes 10/02/24 09:28 Duration of Surgery greater Yes 10/02/24 09:28 than 60 minutes Number of Risk Factors 5 10/02/24 09:28 PONV Score Severe Risk 10/02/24 09:28 Height & Weight Height & Weight: Anesthesia: Height & Weight Height 5 ft 3 in 10/07/24 10:26 Weight: 93 kg 10/07/24 10:26 Body Mass Index (BMI) 36.3 10/07/24 10:26 Respiratory Assessment Respiratory Assessment - premium cancellation clerk: Respiratory Tract Infection Hx - premium cancellation clerk Hx Respiratory Tract Infection No 10/02/24 09:28 STOP Sleep Apnea STOP Sleep Apnea - premium cancellation clerk: STOP Sleep Apnea - premium cancellation clerk Hx Hypertension Yes: CONTROLLED WITH MEDS 10/02/24 09:28 Hx Sleep Apnea Yes 10/02/24 09:28 CPAP Yes 10/02/24 09:28 BIPAP No 10/02/24 09:28 Do you snore loudly (louder than talking or can be heard Do you often feel tired/ fatigued/ sleepy during daytime? Has anyone observed you stop breathing during sleep? STOP Results Positive 10/02/24 09:28 QUESTION #5 FULL TEXT : Do you snore loudly (louder than talking or can be heard through closed doors)? 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 Specify any problems Hx of Preganancy in last 3 No 10/02/24 09:28 Months Nurse Filling Out Transfusion [id number] 10/02/24 09:28 & Questions: Date: 10/02/24 10/02/24 09:28 Time: 09:33 10/02/24 09:28 Patient unable to answer at this time (ie. confused, unrespo /Reproduction History /Reproductive History - premium cancellation clerk: /Reproductive Hx- premium cancellation clerk Hx Now Gestational Age (in weeks): EDC: Hx Hx Para Hx Section SAB No 10/04/21 11:01 Active Medications Active Medications: Current Medications Generic Name Dose Route Start Last Admin Trade Name Freq PRN Reason Stop Dose Admin Cefazolin Sodium 2 gm/ Sodium 110 mls @ 200 mls/hr 10/07/24 12:30 Chloride IV 10/07/24 13:02 INTRAOP ONE Lactated Ringer's 1,000 mls @ 15 mls/hr 10/07/24 10:30 IV .Q48H LAKISHA Lactated Ringer's 1,000 mls @ 15 mls/hr 10/07/24 10:30 10/07/24 10:39 IV 15 mls/hr .Q48H LAKISHA Administration PFSH Medical History History of echocardiogram Fibromyalgia Abnormal ultrasound of breast Abnormal mammogram Mass Cancer Anemia Syncope Stool color black Stool bloody Gastric reflux Chest pain Abdominal pain Diverticulitis Wears glasses Anxiety Thyroid disease Arthritis History of renal disease Back pain History of diverticulitis Non-smoker CPAP (continuous positive airway pressure) dependence Shortness of breath on exertion History of pain when walking Nodular thyroid disease Hemorrhoids Sleep apnea Hypertension Home Medications ?Medication ?Instructions ?Recorded ?Last Taken ?Type omega-3 fatty acids 1,000 mg 2,000 mg PO QDAY SUPPLEME NT 06/26/17 10/06/24 H istory capsule (Fish Oil Concentrate) acetaminophen 325 mg tablet 650 mg PO Q4H PRN Pain Unknown History (Tylenol) magnesium citrate 125 mg capsule 250 mg PO DAILY 05/2210/06/24 History lisinopril 20 1 tab PO QDAY 05/28/2410/06 History mg-hydrochlorothiazide 25 mg tablet cholecalciferol (vitamin D3) 25 25 mcg PO QDAY 5 10/06/24 History mcg (1,000 unit) capsule oomdmagi-dcmg-lpnt 8 mg-folic 400 1 tab PO QDAY 10/06/24 History mcg-K 50 mcg-lutein 300 mcg tablet (Multivitamin Women 50 Plus) herbal sleep supplement 2 tab PO .nightly PRN sleep aid 10/07/24 10/06/24 History Allergy/AdvReac Type Severity Reaction Status Date / Time acetazolamide (From Diamox AdvReac DEPRESSION Verified 10/07/24 10:24 Sequels) duloxetine (From Cymbalta) AdvReac DEPRESSION Verified 10/07/24 10:24 tetracycline AdvReac DEPRESSION Verified 10/07/24 10:24 Family History Mother Colon cancer Hypertension Father Diabetes Surgical History H/O lumpectomy History of cholecystectomy History of colectomy History of esophagogastroduodenoscopy (EGD) History of nephrectomy, right Hx of colonoscopy S/P thyroid biopsy history excision right breast lump Social History household members: spouse housing: house Smoking Status: Never smoker alcohol intake: never substance use type: does not use Review of Systems (Anesthesia) ROS Narrative System reviewed and no additional complaints, except as documented. 10/07/24 1120 <Electronically signed by Keaton holland MD> Date _ Keaton Murphy MD Cosigner Signature: Date CC: ~ Signed [facility] Work Phone: [phone] 792-972807-29-2025 History and physical note [facility] Medical Records Department [address] [place] [address] History & Physical Exam 10/07/24 1251 MR#: [id number] Acct: [id number] Name: NORI RODRGIUEZ Rep #:[id number] : 1955 69 From: Jeremiah Franco MD PCP: Dr. Nellie Rome MD Status:[facility] Location: [place] [address] HPI - General General Date of Admission: 10/07/24 Date of Service: 10/07/24 Chief Complaint: RIGHT BREAST CANCER HPI Narrative NORI RODRIGUEZ, is a 69 F who presents for lumpectomy and SLN biopsy for invasive breast [facility] Medical History History of echocardiogram Fibromyalgia Abnormal ultrasound of breast Abnormal mammogram Mass Cancer Anemia Syncope Stool color black Stool bloody Gastric reflux Chest pain Abdominal pain Diverticulitis Wears glasses Anxiety Thyroid disease Arthritis History of renal disease Back pain History of diverticulitis Non-smoker CPAP (continuous positive airway pressure) dependence Shortness of breath on exertion History of pain when walking Nodular thyroid disease Hemorrhoids Sleep apnea Hypertension Home Medications ?Medication ?Instructions ?Recorded ?Last Taken ?Type omega-3 fatty acids 1,000 mg 2,000 mg PO QDAY SUPPLEME NT 06/26/17 10/06/24 History capsule (Fish Oil Concentrate) acetaminophen 325 mg tablet 650 mg PO Q4H PRN Pain Unknown History (Tylenol) magnesium citrate 125 mg capsule 250 mg PO DAILY 05/2210/06/24 History lisinopril 20 1 tab PO QDAY 05/28/2410/06 History mg-hydrochlorothiazide 25 mg tablet cholecalciferol (vitamin D3) 25 25 mcg PO QDAY 5 10/06/24 History mcg (1,000 unit) capsule pydfigag-rzwn-jdgl 8 mg-folic 400 1 tab PO QDAY 10/06/24 History mcg-K 50 mcg-lutein 300 mcg tablet (Multivitamin Women 50 Plus) herbal sleep supplement 2 tab PO .nightly PRN sleep aid 10/07/24 10/06/24 History Allergy/AdvReac Type Severity Reaction Status Date / Time acetazolamide (From Diamox AdvReac DEPRESSION Verified 10/07/24 10:24 Sequels) duloxetine (From Cymbalta) AdvReac DEPRESSION Verified 10/07/24 10:24 tetracycline AdvReac DEPRESSION Verified 10/07/24 10:24 Family History Mother Colon cancer Hypertension Father Diabetes Surgical History H/O lumpectomy History of cholecystectomy History of colectomy History of esophagogastroduodenoscopy (EGD) History of nephrectomy, right Hx of colonoscopy S/P thyroid biopsy history excision right breast lump Social History household members: spouse housing: house Smoking Status: Never smoker alcohol intake: never substance use type: does not use Vital Signs Vital Signs Vital Signs: 10/07/24 10:26 10/07/24 10:26 10/07/24 11:20 Temperature 97.8 F 97.8 F Temperature Source Temporal Pulse Rate 71 71 Respiratory Rate 12 12 Respiratory Pattern Normal Blood Pressure 143/69 H 143/69 H Blood Pressure Mean 93 Blood Pressure Source Monitor Blood Pressure Position Semi-Fowlers Blood Pressure Location Left Arm Pulse Ox 98 98 Oxygen Delivery Method Room Air Room Air Weight Weight: 205 lb 0.478 oz Body Mass Index (BMI) 36.3 Physical Exam Const alert, oriented x3 and no apparent distress Results Imaging Radiology Impression Bascom Node 10/07/24 10:50 IMPRESSION: Subdermal injection above the right nipple for sentinel node imaging. Reading Location: [id number] Assessment & Plan Assessment/Plan (1) Invasive ductal carcinoma of breast: PLAN: Plan right breast lumpectomy abd SLN bx today 10/07/24 1253 Cosigner Signature (if applicable): CC: Dr. Nellie Rome MD; Dr. Jeremiah Franco MD~ Signed [facility]07-29-2025 [facility] Medical Records Department [address] [place] [address] History Physical Exam 10/07/24 1251 MR#: [id number] Acct: [id number] Name: NORI RODRIGUEZ Rep #: [id number] : 1955 69 From: Jeremiah Franco MD PCP: Dr. Nellie Rome MD Status:REG [facility] Location: [address] HPI - General General Date of Admission: 10/07/24 Date of Service: 10/07/24 Chief Complaint: RIGHT BREAST CANCER HPI Narrative NORI RODRIGUEZ, is a 69 F who presents for lumpectomy and SLN biopsy for invasive breast [facility] Medical History History of echocardiogram Fibromyalgia Abnormal ultrasound of breast Abnormal mammogram Mass Cancer Anemia Syncope Stool color black Stool bloody Gastric reflux Chest pain Abdominal pain Diverticulitis Wears glasses Anxiety Thyroid disease Arthritis History of renal disease Back pain History of diverticulitis Non-smoker CPAP (continuous positive airway pressure) dependence Shortness of breath on exertion History of pain when walking Nodular thyroid disease Hemorrhoids Sleep apnea Hypertension Home Medications ???Medication ???Instructions ???Recorded ???Last Taken ???Type omega-3 fatty acids 1,000 mg 2,000 mg PO QDAY SUPPLEMENT 10/06/24 History capsule (Fish Oil Concentrate) acetaminophen 325 mg tablet 650 mg PO Q4H PRN Pain 02/02/21 Un known History (Tylenol) magnesium citrate 125 mg capsule 250 mg PO DAILY 05/23/23 10/06/24 History lisinopril 20 1 tab PO QDAY 05/28/24 10/06/24 Hi story mg-hydrochlorothiazide 25 mg tablet cholecalciferol (vitamin D3) 25 25 mcg PO QDAY 09/26/24 10/06/24 H istory mcg (1,000 unit) capsule stbewslu-apha-ladr 8 mg-folic 400 1 tab PO QDAY 09/26/24 10/06/24 H istory mcg-K 50 mcg-lutein 300 mcg tablet (Multivitamin Women 50 Plus) herbal sleep supplement 2 tab PO .nightly PRN sleep aid 10/06/24 History Allergy/AdvReac Type Severity Reaction Status Date / Time acetazolamide (From Diamox AdvReac DEPRESSION Verified 10/07/24 10:24 Sequels) duloxetine (From Cymbalta) AdvReac DEPRESSION Verified 10/07/24 10:24 tetracycline AdvReac DEPRESSION Verified 10/07/24 10:24 Family History Mother Colon cancer Hypertension Father Diabetes Surgical History H/O lumpectomy History of cholecystectomy History of colectomy History of esophagogastroduodenoscopy (EGD) History of nephrectomy, right Hx of colonoscopy S/P thyroid biopsy history excision right breast lump Social History household members: spouse housing: house Smoking Status: Never smoker alcohol intake: never substance use type: does not use Vital Signs Vital Signs Vital Signs: 10/07/24 10:26 10/07/24 10:26 10/07/24 11:20 Temperature 97.8 F 97.8 F Temperature Source Temporal Pulse Rate 71 71 Respiratory Rate 12 12 Respiratory Pattern Normal Blood Pressure 143/69 H 143/69 H Blood Pressure Mean 93 Blood Pressure Source Monitor Blood Pressure Position Semi-Fowlers Blood Pressure Location Left Arm Pulse Ox 98 98 Oxygen Delivery Method Room Air Room Air Weight Weight: 205 lb 0.478 oz Body Mass Index (BMI) 36.3 Physical Exam Const alert, oriented x3 and no apparent distress Results Imaging Radiology Impression Bascom Node 10/07/24 10:50 IMPRESSION: Subdermal injection above the right nipple for sentinel node imaging. Reading Location: [id number] Assessment Plan Assessment/Plan (1) Invasive ductal carcinoma of breast: PLAN: Plan right breast lumpectomy abd SLN bx today 10/07/24 1253 Cosigner Signature (if applicable): CC: Dr. Nellie Rome MD; [facility] Jeremiah Franco [facility] medicine Diagnostic study note [facility] Imaging Services [address] [place] [address] Lymph Node Injection Only MR#: [id number] Acct: [id number] Name: ONRI RODRIGUEZ Rep #: [id number] : 1955 F 69 From: Uri Perdomo MD PCP: Dr. Nellie Rome MD Status: REG [facility] Study:Lymph Node Injection Only Date of Exam: 10/07/24 Exam# [id number] Ordering Dr: St pratima Franco MD PROCEDURE: LYMPH NODE INJECTION ONLY 10/07/2024 REASON FOR EXAM: BREAST CANCER TECHNIQUE: LYMPH NODE INJECTION ONLY 564 uCi of [place] was injected subdermally at 1 cm above the right nipple for sentinel node imaging. RADIOPHARMACEUTICAL DOSE: 564 uCi COMPARISON: None FINDINGS: Subdermal injection of radiopharmaceutical for sentinel node imaging. NM/Lymph Node Injection Only IMPRESSION: Subdermal injection above the right nipple for sentinel node imaging. Reading Location: [facility] CC: Dr. Nellie Rome MD; Dr. Jeremiah Franco MD ~ Clinical Documentation Nurse: Signed [facility]07-29-2025 Consult note [facility] Medical Records Department [address] [place] [address] Pre-Anesthesia Evaluation 10/07/24 1107 MR#: [id number] Acct: [id number] Name: NORI RODRIGUEZ Rep #:[id number] : 1955 69 From: Keaton Murphy MD PCP: Dr. Nellie Rome MD Status:REG [facility] [place] Y Race: C Location: [place] [address] ASA Classification* ASA Classification ASA Classification: 3 Assessment & Plan Anesthesia* Anesthesia Assessment Anesthesia Assessment: Discussed sedation and/or anesthesia options, risks, benefits, and alternatives with patient/parents/legal guardian/POA. Questions invited. The patient/parents/legal guardian/POA seems to understand and agrees to proceedwith anesthesia plan. Reviewed the physical assessment, medical history, allergy history and patient home medications list prior to surgery/procedure/anesthetic and documented any changes. Performed airway and anesthesia risk assessments. Anesthesia Type Anesthesia Type: General History Source History Obtained from:: Patient and Chart Anesthesia Focused Assessment* Temperature: 97.8 F Pulse Rate: 71 Blood Pressure: 143/69 Respiratory Rate: 12 Pulse Ox: 98 Oxygen Delivery Method: Room Air Airway Assessment Mouth opens: >3 cm Mallampati Score: IV Teeth Condition: Intact and Partial (Patient is missing 1 tooth. Rest of the teeth are tight.) Neck Range of motion (ROM): Full ROM Labs Anesthesia Preop lab: CBC WBC 7.0 K/mm3 (4.4-11.0) 11/13/23 10:53 11/13/23 RBC 4.68 M/mm3 (4.2-5.4) 11/13/23 10:53 11/13/23 Hgb 12.7 g/dL (12.0-15.0) 11/13/23 10:53 11/13/23 Hct 39.4 % (37-47) 11/13/23 10:53 11/13/23 Plt Count 354 K/mm3 (150-450) 11/13/23 10:53 11/13/23 CHEMISTRY Potassium 3.7 mmol/L (3.5-5.1) 02/19/24 13:17 02/19/24 Sodium 141 mmol/L (136-145) 02/19/24 13:17 02/19/24 Magnesium 2.0 mg/dL (1.6-2.6) 10/06/21 11:44 10/06/21 BUN 23 mg/dL (7-18) H 02/19/24 13:17 02/19/24 Creatinine 1.29 mg/dL (0.55-1.02) H 02/19/24 13:17 Glucose 121 mg/dL (74-106) H 02/19/24 13:17 02/19/24 POC Glucose 131 mg/dL (74-106) H 10/12/21 11:17 10/12/21 TSH 0.631 uIU/mL (0.358-3.740) 02/19/24 13:17 02/09 COAG PT 13.7 SECONDS (11.7-14.9) 10/06/21 11:44 Pre-Assessment Diagnosis/Proposed Procedure Planned Operative Procedure(s): RIGHT BREAST STEREOWIRE LOCALIZED LUMPECTOMY WITH SENTINEL LYMPH NODE BIOPSY, POSSIBLE NODE DISSECTION Anesthesia History Anesthesia History - premium cancellation clerk: Anesthesia History - premium cancellation clerk Hx Hospitalization No 10/02/24 09:28 Any Problems With Anesthesia Yes: VERY SENSITIVE TO MEDS 10/02/24 09:28 , NAUSEA Cholinesterase deficiency No 10/02/24 09:28 You/Your Family Experience No 10/02/24 09:28 fever (hyperthermia) with Relationship Recent Exposure to Contagious No 10/07/24 10:26 Disease Does patient have nerve No 10/02/24 09:28 stimulator Patient instructed to have device shut off --Does patient have Pacemaker No 10/07/24 10:26 or ICD? When Was Last Pacemaker Check QUESTION #4 FULL TEXT: You/Your Family Experience fever (hyperthermia) with Anesthesia Last Oral Intake Last Oral intake: Last Oral Intake NPO since 06:00 10/07/24 10:26 Meds taken in AM with sips of No 10/07/24 10:26 water? Meds patient instructed to take am of surgery Any additional information?: Yes NPO since: 06:00 (Patient had tea at 6 AM.) Meds taken in AM with sips of water?: No PONV PONV - premium cancellation clerk: PONV - premium cancellation clerk Female Yes 10/02/24 09:28 HX of Motion Sickness Yes 10/02/24 09:28 HX of N/V After Surgery Yes 10/02/24 09:28 Non-Smoker Yes 10/02/24 09:28 Duration of Surgery greater Yes 10/02/24 09:28 than 60 minutes Number of Risk Factors 5 10/02/24 09:28 PONV Score Severe Risk 10/02/24 09:28 Height & Weight Height & Weight: Anesthesia: Height & Weight Height 5 ft 3 in 10/07/24 10:26 Weight: 93 kg 10/07/24 10:26 Body Mass Index (BMI) 36.3 10/07/24 10:26 Respiratory Assessment Respiratory Assessment - premium cancellation clerk: Respiratory Tract Infection Hx - premium cancellation clerk Hx Respiratory Tract Infection No 10/02/24 09:28 STOP Sleep Apnea STOP Sleep Apnea - premium cancellation clerk: STOP Sleep Apnea - premium cancellation clerk Hx Hypertension Yes: CONTROLLED WITH MEDS 10/02/24 09:28 Hx Sleep Apnea Yes 10/02/24 09:28 CPAP Yes 10/02/24 09:28 BIPAP No 10/02/24 09:28 Do you snore loudly (louder than talking or can be heard Do you often feel tired/ fatigued/ sleepy during daytime? Has anyone observed you stop breathing during sleep? STOP Results Positive 10/02/24 09:28 QUESTION #5 FULL TEXT : Do you snore loudly (louder than talking or can be heard through closeddoors)? 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 Specify any problems Hx of Preganancy in last 3 No 10/02/24 09:28 Months Nurse Filling Out Transfusion [email or web address] 10/02/24 09:28 & Questions: Date: 10/02/24 10/02/24 09:28 Time: 09:33 10/02/24 09:28 Patient unable to answer at this time (ie. confused, unrespo /Reproduction History /Reproductive History - premium cancellation clerk: /Reproductive Hx- premium cancellation clerk Hx Now Gestational Age (in weeks): EDC: Hx Hx Para Hx Section SAB No 10/04/21 11:01 Active Medications Active Medications: Current Medications Generic Name Dose Route Start Last Admin Trade Name Freq PRN Reason Stop Dose Admin Cefazolin Sodium 2 gm/ Sodium 110 mls @ 200 mls/hr 10/07/24 12:30 Chloride IV 10/07/24 13:02 INTRAOP ONE Lactated Ringer's 1,000 mls @ 15 mls/hr 10/07/24 10:30 IV .Q48H LAKISHA Lactated Ringer's 1,000 mls @ 15 mls/hr 10/07/24 10:30 10/07/24 10:39 IV 15 mls/hr .Q48H LAKISHA Administration PFSH Medical History History of echocardiogram Fibromyalgia Abnormal ultrasound of breast Abnormal mammogram Mass Cancer Anemia Syncope Stool color black Stool bloody Gastric reflux Chest pain Abdominal pain Diverticulitis Wears glasses Anxiety Thyroid disease Arthritis History of renal disease Back pain History of diverticulitis Non-smoker CPAP (continuous positive airway pressure) dependence Shortness of breath on exertion History of pain when walking Nodular thyroid disease Hemorrhoids Sleep apnea Hypertension Home Medications ?Medication ?Instructions ?Recorded ?Last Taken ?Type omega-3 fatty acids 1,000 mg 2,000 mg PO QDAY SUPPLEME NT 06/26/17 10/06/24 H istory capsule (Fish Oil Concentrate) acetaminophen 325 mg tablet 650 mg PO Q4H PRN Pain Unknown History (Tylenol) magnesium citrate 125 mg capsule 250 mg PO DAILY 05/2210/06/24 History lisinopril 20 1 tab PO QDAY 05/28/2410/06 History mg-hydrochlorothiazide 25 mg tablet cholecalciferol (vitamin D3) 25 25 mcg PO QDAY 5 10/06/24 History mcg (1,000 unit) capsule [id number]-ztsf-ddjf 8 mg-folic 400 1 tab PO QDAY 10/06/24 History mcg-K 50 mcg-lutein 300 mcg tablet (Multivitamin Women 50 Plus) herbal sleep supplement 2 tab PO .nightly PRN sleep aid 10/07/24 10/06/24 History Allergy/AdvReac Type Severity Reaction Status Date / Time acetazolamide (From Diamox AdvReac DEPRESSION Verified 10/07/24 10:24 Sequels) duloxetine (From Cymbalta) AdvReac DEPRESSION Verified 10/07/24 10:24 tetracycline AdvReac DEPRESSION Verified 10/07/24 10:24 Family History Mother Colon cancer Hypertension Father Diabetes Surgical History H/O lumpectomy History of cholecystectomy History of colectomy History of esophagogastroduodenoscopy (EGD) History of nephrectomy, right Hx of colonoscopy S/P thyroid biopsy history excision right breast lump Social History household members: spouse housing: house Smoking Status: Never smoker alcohol intake: never substance use type: does not use Review of Systems (Anesthesia) ROS Narrative System reviewed and no additional complaints, except as documented. 10/07/24 1120 skyler UMAÑA> Date _ [facility] Date CC: ~ Signed [facility]07-23-2025 Progress [facility] [address] [place] [address] [address] [place] [address] OFFICE VISIT Date of Service: 10/01/24 MR#: [id number] Acct: [id number] Name: NORI RODRIGUEZ Rep #: [id number] : 1955 Provider: Dr. Naeem Franco MD Age/Sex: 69/F Location: [facility] Status: Signed Intake Vital Signs 09/26/24 13:25 Height 5 ft 3 in Weight: 208 lb BMI 36.8 BP 149/78 H Blood Pressure Location Rt brachial Position Sitting Respiration 18 Pulse 70 Pulse Source Monitor Pulse Oximetry (%) 97 Oxygen Delivery Method room air Intake Visit Reasons: DISCUSS BREAST SX Chief Complaint: discuss breast surgery Is patient in pain?: Yes (has chronic knee and hip pain. ) Allergies acetazolamide (From Diamox Sequels) Adverse Reaction (Verified 10/01/24 13:47) DEPRESSION duloxetine (From Cymbalta) Adverse Reaction (Verified 10/01/24 13:47) DEPRESSION tetracycline Adverse Reaction (Verified 10/01/24 13:47) DEPRESSION Medications ?Medication ?Instructions ?Recorded ?Confirmed ?Type omega-3 fatty acids 1,000 mg 2,000 mg PO QDAY SUPPLEME NT 06/26/17 10/01/24 Hi story capsule (Fish Oil Concentrate) acetaminophen 325 mg tablet 650 mg PO Q4H PRN Pain 10/01/24 History (Tylenol) magnesium citrate 125 mg capsule 250 mg PO DAILY 05/2210/01/24 History lisinopril 20 1 tab PO QDAY 05/28/2410/01 History mg-hydrochlorothiazide 25 mg tablet cholecalciferol (vitamin D3) 25 25 mcg PO QDAY 5 10/01/24 History mcg (1,000 unit) capsule [id number]-txnx-givd 8 mg-folic 400 1 tab PO QDAY 10/01/24 History mcg-K 50 mcg-lutein 300 mcg tablet (Multivitamin Women 50 Plus) Have you fallen in the past year?: No PFSH Medical History Abnormal ultrasound of breast Abnormal mammogram Mass Cancer Anemia Syncope Stool color black [...] house Smoking Status: Never smoker alcohol intake: never substance use type: does not use HPI HPI HPI: Patient is a 69-year-old female with a recently discovered right breast cancer. I saw the patient last week to discuss her surgical options. I gave her a week to think over her options and she returns today with her response. She states that she would like to proceed with a lumpectomy sentinel lymph node biopsy. She did describe some skin issue near the biopsy site. She denied any bleeding or drainage but noticed that the site had a scab. She picked the scab off and was left with an area of rawtissue ROS General General: Yes weight change and breast cancer; No appetite, fatigue, colon cancer or weakness HEENT HEENT: No difficulty swallowing, eye injury, eye surgery, swollen glands or hoarseness Endo Endocrine: Yes thyroid disease; No diabetes mellitus, thyroid cancer, Hair loss, heat intolerance or cold intolerance Skin Skin: No rash or changing moles Musc Musculoskeletal: Yes back problems and arthritis; No rheumatoid arthritis, gout or joint pain Cardio Cardiovascular: Yes high blood pressure; No murmur, pacemaker, heart disease, atrial fibrillation, heart attack, heart stent, palpitations, shortness of breath with exertion or chest pain Psych Psychiatric: No depression, anxiety or hearing voices Resp Respiratory: No shortness of breath, Yes sleep apnea, No cough, No COPD, No asthma, No emphysema and No wheezing Gastro Gastrointestinal: No abdominal pain, No nausea or vomiting, No diarrhea, No constipation, No blood in stool, No acid reflux, Yes hemorrhoids, No ulcers, No gallbladder problem and No black,tarry stools Jaxon Hematologic: No blood thinners, No blood disorders, No bleeding, No anemia and No blood clots Neuro Neurologic: No system reviewed and no additional complaints, except as documented, No as per HPI, No abnormal gait, No abnormal hearing, No abnormal movements, No abnormal speech, No behavioral changes, No burning sensations, No confusion, No convulsions, No disequilibrium, No dizziness, No localized weakness, No frequent falls, No headache(s), No lack of coordination, No loss ofvision, No memoryloss, No numbness, No other visual disturbances, No radicular pain, No restless legs, No sensory deficit, No syncope, No tingling, No tremor(s), No weakness and No other Exam Const General: cooperative and comfortable HENMT Head: normal to inspection Chest Other: Examination of the right breast reveals about a quarter sized area at about the 10 o'clock positionnear the right areola. I suspect this is probably from skinshearing related to the Steri-Strips or applied. I suspect the breast may have swelled after the biopsy and this caused shearing off of the superficial skin layer. I recommend that she keep the area covered and apply Neosporin daily. Assessment and Plan Assessment and Plan (1) Invasive ductal carcinoma of breast: Status: Acute Plan: The patient is a 69-year-old female with an invasive ductal carcinoma of the breast on the right. After discussing the surgical options, patient has electedto pursue a lumpectomy with radiation and sentinel lymph node biopsy. We discussed the details of the planned procedure including the risks benefits and alternatives. She wishes to proceed. This will require a stereo wire localization. This will be scheduled in a timely manner. Coding Level of Care Code Off vis,est,level 3 Diagnoses Invasive ductal carcinoma of breast C50.919 Clinical Quality Measures Falls Risk Screening/Assistive Devices Have you fallen in the past year?: No 10/01/24 1413 k > Date _ Jeremiah Franco MD Cosigner Signature: Date (if applicable) CC: ~ [facility]07-23-2025 Progress note Author Jeremiah Franco [facility] Note Date/Time October 01, 2024 2:13 pm [facility] [address] [place] [address]. [address] [place] [address] OFFICE VISIT Date of Service: 10/01/24 MR#: [id number] Acct: [id number] Name: NORI RODRIGUEZ Rep #: [id number] : 1955 Provider: Dr. Naeem Franco MD Age/Sex: 69/F Location: [facility] Status: Signed Intake Vital Signs 09/26/24 13:25 Height 5 ft 3 in Weight: 208 lb BMI 36.8 BP 149/78 H Blood Pressure Location Rt brachial Position Sitting Respiration 18 Pulse 70 Pulse Source Monitor Pulse Oximetry (%) 97 Oxygen Delivery Method room air Intake Visit Reasons: DISCUSS BREAST SX Chief Complaint: discuss breast surgery Is patient in pain?: Yes (has chronic knee and hip pain. ) Allergies acetazolamide (From Diamox Sequels) Adverse Reaction (Verified 10/01/24 13:47) DEPRESSION duloxetine (From Cymbalta) Adverse Reaction (Verified 10/01/24 13:47) DEPRESSION tetracycline Adverse Reaction (Verified 10/01/24 13:47) DEPRESSION Medications ?Medication ?Instructions ?Recorded ?Confirmed ?Type omega-3 fatty acids 1,000 mg 2,000 mg PO QDAY SUPPLEME NT 06/26/17 10/01/24 Hi story capsule (Fish Oil Concentrate) acetaminophen 325 mg tablet 650 mg PO Q4H PRN Pain 10/01/24 History (Tylenol) magnesium citrate 125 mg capsule 250 mg PO DAILY 05/2210/01/24 History lisinopril 20 1 tab PO QDAY 05/28/2410/01 History mg-hydrochlorothiazide 25 mg tablet cholecalciferol (vitamin D3) 25 25 mcg PO QDAY 5 10/01/24 History mcg (1,000 unit) capsule aiiikkua-wytl-hble 8 mg-folic 400 1 tab PO QDAY 10/01/24 History mcg-K 50 mcg-lutein 300 mcg tablet (Multivitamin Women 50 Plus) Have you fallen in the past year?: No PFSH Medical History Abnormal ultrasound of breast Abnormal mammogram Mass Cancer Anemia Syncope Stool color black [...] house Smoking Status: Never smoker alcohol intake: never substance use type: does not use HPI HPI HPI: Patient is a 69-year-old female with a recently discovered right breast cancer. I saw the patient last week to discuss her surgical options. I gave her a week to think over her options and she returns today with her response. She states that she would like to proceed with a lumpectomy sentinel lymph node biopsy. She did describe some skin issue near the biopsy site. She denied any bleeding or drainage but noticed that the site had a scab. She picked the scab off and was left with an area of raw tissue ROS General General: Yes weight change and breast cancer; No appetite, fatigue, colon cancer or weakness HEENT HEENT: No difficulty swallowing, eye injury, eye surgery, swollen glands or hoarseness Endo Endocrine: Yes thyroid disease; No diabetes mellitus, thyroid cancer, Hair loss, heat intolerance or cold intolerance Skin Skin: No rash or changing moles Musc Musculoskeletal: Yes back problems and arthritis; No rheumatoid arthritis, gout or joint pain Cardio Cardiovascular: Yes high blood pressure; No murmur, pacemaker, heart disease, atrial fibrillation, heart attack, heart stent, palpitations, shortness of breath with exertion or chest pain Psych Psychiatric: No depression, anxiety or hearing voices Resp Respiratory: No shortness of breath, Yes sleep apnea, No cough, No COPD, No asthma, No emphysema and No wheezing Gastro Gastrointestinal: No abdominal pain, No nausea or vomiting, No diarrhea, No constipation, No blood in stool, No acid reflux, Yes hemorrhoids, No ulcers, No gallbladder problem and No black,tarry stools Jaxon Hematologic: No blood thinners, No blood disorders, No bleeding, No anemia and No blood clots Neuro Neurologic: No system reviewed and no additional complaints, except as documented, No as per HPI, No abnormal gait, No abnormal hearing, No abnormal movements, No abnormal speech, No behavioral changes, No burning sensations, No confusion, No convulsions, No disequilibrium, No dizziness, No localized weakness, No frequent falls, No headache(s), No lack of coordination, No loss ofvision, No memory loss, No numbness, No other visual disturbances, No radicular pain, No restless legs, No sensory deficit, No syncope, No tingling, No tremor(s), No weakness and No other Exam Const General: cooperative and comfortable [facility] Head: normal to inspection Chest Other: Examination of the right breast reveals about a quarter sized area at about the 10 o'clock position near the right areola. I suspect this is probably from skinshearing related to the Steri-Strips or applied. I suspect the breast may have swelled after the biopsy and this caused shearing off of the superficial skin layer. I recommend that she keep the area covered and apply Neosporin daily. Assessment and Plan Assessment and Plan (1) Invasive ductal carcinoma of breast: Status: Acute Plan: The patient is a 69-year-old female with an invasive ductal carcinoma of the breast on the right. After discussing the surgical options, patient has electedto pursue a lumpectomy with radiation and sentinel lymph node biopsy. We discussed the details of the planned procedure including the risks benefits and alternatives. She wishes to proceed. This will require a stereo wire localization. This will be scheduled in a timely manner. Coding Level of Care Code Off vis,est,level 3 Diagnoses Invasive ductal carcinoma of breast C50.919 Clinical Quality Measures Falls Risk Screening/Assistive Devices Have you fallen in the past year?: No 10/01/24 1413 <Electronically signed by Jeremiah sanz MD> Date _ Jeremiah Farnco MD Cosigner Signature: Date (if applicable) CC: ~ [facility] Work Phone: 1(592) 414-791707-07-2025 Evaluation note* Diagnosis Onset Date Resolution Status Admit Date Abnormal ultrasound of breast acute September 15, 2024 12:24pm Invasive ductal carcinoma of breast acute September 26, 2024 1:10pm [facility] Work Phone: 1(974) 574-966307-07-2025 Evaluation note* Diagnosis Onset Date Resolution Status Admit Date Abnormal ultrasound of breast acute September 15, 2024 12:24pm Invasive ductal carcinoma of breast acute September 26, 2024 1:10pm Invasive ductal carcinoma of breast acute October 01, 2024 1:41pm [facility] Work Phone: [phone]) 803-318407-07-2025 Evaluation note* Diagnosis Onset Date Resolution Status Admit Date Abnormal ultrasound of breast acute September 15, 2024 12:24pm Invasive ductal carcinoma of breast acute September 26, 2024 1:10pm Invasive ductal carcinoma of breast acute October 01, 2024 1:41pm Invasive ductal carcinoma of breast acute October 07, 2024 9:58am [facility] Work Phone: 1([phone]) 811-934007-07-2025 Evaluation note* Diagnosis Onset Date Resolution Status Admit Date Abnormal ultrasound of breast acute September 15, 2024 12:24pm Invasive ductal carcinoma of breast acute September 26, 2024 1:10pm Invasive ductal carcinoma of breast acute October 01, 2024 1:41pm Invasive ductal carcinoma of breast acute October 07, 2024 9:58am S/P lumpectomy, right breast acute October 14, 2024 1:54pm [facility] Work Phone: 1([phone]) 915-291407-07-2025 Evaluation note* Diagnosis Onset Date Resolution Status Admit Date Abnormal ultrasound of breast acute September 15, 2024 12:24pm Invasive ductal carcinoma of breast acute September 26, 2024 1:10pm Invasive ductal carcinoma of breast acute October 01, 2024 1:41pm Invasive ductal carcinoma of breast acute October 07, 2024 9:58am S/P lumpectomy, right breast acute October 14, 2024 1:54pm Invasive ductal carcinoma of breast acute October 30 9:57am S/P lumpectomy, right breast acute October 30, 2024 9:57am Invasive ductal carcinoma of breast acute November 11 11:28am Regional lymph node metastasis present acute November 11:28am [facility] Work Phone: 1([phone]) 847-533806-20-2025 Radiology Diagnostic study note [facility] Imaging Services [address] [place] [address] Breast Complete Unilateral MR#: [id number] Acct: [id number] Name: NORI RODRIGUEZ Rep #: [id number] : 1955 F 69 From: Jo Thorne MD PCP: Dr. Nellie Rome MD Status: REG CLI Study:Breast Complete Unilateral Date of Exam : 08/29/24 Exam# [id number] Ordering Dr: Caty Rome MD PROCEDURE: BREAST COMPLETE UNILATERAL 08/29/2024 REASON FOR EXAM: 69-year-old female presents for follow-up of the right breast findings seen on examination of 08/25/2024. No family history of breast cancer. TECHNIQUE: Targeted right breast ultrasound was performed. COMPARISON: Mammogram 08/25/2024 and 06/05/2023 FINDINGS: Complete right breast ultrasound was performed and of the right axillary region. Follow-up examination performed for the right breast mass seen on examination of08/25/2024. On the present examination, there is an irregular hypoechoic mass with posterior shadowing in the retroareolar right breast measuring2.2 x 2.1 x 1.7 cm. There is internal vascular flow. Also, there is a cyst versus dilated duct seen in the retroareolar 9 o'clock right breast, measuring 1.5 x 1.4 x 1.2 cm. There are additional dilated ducts in the retroareolar right breast. There are 3 prominent right axillary lymph nodes, 1 of which demonstrates focal cortical thickening. The right axillary lymph node that demonstrates focal cortical thickening measures 2.2 x 1.2 x 1.0 cm with cortical thickness up to 0.4 cm. US/Breast Complete Unilateral IMPRESSION: 1.Suspicious retroareolar right breast mass. Recommend tissue sampling with ultrasound-guided core needle biopsy. 2. Suspicious right axillary lymph node with focal cortical bulge. Recommend tissue sampling with ultrasound-guided core needle biopsy. Follow-up code: Ultrasound-guided core needle biopsy is recommended. BI-RADS 5: HIGHLY SUGGESTIVE OF MALIGNANCY Reading Location: [id number] CC: Dr. Nellie Rome MD ~ Clinical Documentation Nurse: Signed [facility]04-15-2025 Radiology Diagnostic study note [facility] Imaging Services [address] [place] [address] Abdomen/Pelvis WITH Contrast MR#: [id number] Acct: [id number] Name: NORI RODRIGUEZ Rep #: [id number] : [id number] F 69 From: Uri Perdomo MD PCP: Dr. Nellie Rome MD Status: REG CLI Study:Abdomen/Pelvis WITH Contrast Date of Ex am: 06/23/24 Exam# [id number] Ordering Dr: Audrey Jones MD PROCEDURE: ABDOMEN/PELVIS [...] of a central anterior lower anterior abdominal wallventral hernia containing fat. Bones: Degenerative changes of the spine. Straightening of the normal lumbar lordosis. CT/Abdomen/Pelvis WITH Contrast IMPRESSION: Stable examination. No acute abnormality is seen. Reading Location: [place] [address] CC: Dr. Nellie Rome MD; Dr. Oswaldo Jones MD ~ Clinical Documentation Nurse: Signed [facility]03-19-2025 Evaluation note* Diagnosis Onset Date Resolution Status Admit Date Obesity chronic May 28 10:51am RADU (obstructive sleep apnea) chroni c May 28, 2024 10:51am [facility] Work Phone: 1(134) 942-382903-19-2025 Evaluation note* Diagnosis Onset Date Resolution Status Admit Date Obesity chronic May 28 10:51am RADU (obstructive sleep apnea) chroni c May 28, 2024 10:51am Abnormal ultrasound of breast acute September 15, 2024 12:24pm [facility] Work Phone: 1(450) 130-425902-23-2023 Discharge summary Author Gustavo Curiel [facility] May 04, 2022 1:21pm Note Date/Time May 04, 2022 1:21pm [facility] Physical Therapy [facility] [place] [address] / REHABILITATION SERVICES DISCHARGE SUMMARY MR#: [id number] Acct: [id number] Name: NORI RODRIGUEZ Rep #: [id number] : [id number] 66 From: Gustavo Curiel DPT, OCS, CSCS Referring Dr.: Dr. Nellie Rome MD Status: REG RCR Insurance: MEDICARE PART A B [facility] It has been my pleasure to treat NORI RODRIGUEZ referred by Dr. Nellie Rome MD, [...] please feel free to call me at [phone]. Thank you for the referral of thispatient. Sincerely, Gustavo Curiel, LAZ, OCS, CSCS Balance/Gait/Functional tests - Balance/Special Test Scores Functional Gait Assessment Score: 27 % Disability: 10.0000 Lower Extremity Functional Score: 42 <Electronically signed by Gustavo Curiel DPT, OCS, CSCS> 05/04/22 1321 CC: Dr. Nellie Rome MD ~ EBG Signed [facility] Work Phone: Evaluation note* Diagnosis Onset Date Resolution Status BMI 39.0-39.9,adult acute Sleep apnea acute [facility] Work Phone: Evaluation note* Diagnosis Onset Date Resolution Status BMI 39.0-39.9,adult acute Sleep apnea acute Cholecystitis with cholelithiasis acute Epigastric abdominal pain ac pauma History of diverticulitis ac pauma History of renal disease acu te Lower abdominal pain acute Cholecystitis with cholelithiasis acute Epigastric abdominal pain ac pauma History of diverticulitis ac pauma Lower abdominal pain acute Stool bloody acute [facility] Work Phone: Evaluation note* Diagnosis Onset Date Resolution Status BMI 39.0-39.9,adult acute Sleep apnea acute Cholecystitis with cholelithiasis acute Epigastric abdominal pain ac pauma History of diverticulitis ac pauma History of renal disease acu te Lower abdominal pain acute Cholecystitis with cholelithiasis acute Epigastric abdominal pain ac pauma History of diverticulitis ac pauma Lower abdominal pain acute Stool bloody acute Cholecystitis with cholelithiasis acute Epigastric abdominal pain ac pauma Lower abdominal pain acute Mass of hepatic flexure of colon acute Stool bloody acute Cholecystitis with cholelithiasis acute Mass of hepatic flexure of colon acute [facility] Work Phone: Evaluation note* Diagnosis Onset Date Resolution Status Epigastric abdominal pain ac pauma History of diverticulitis ac pauma History of renal disease acu te Lower abdominal pain acute Cholecystitis with cholelithiasis resolved Epigastric abdominal pain ac pauma History of diverticulitis ac pauma Lower abdominal pain acute Stool bloody acute Cholecystitis with cholelithiasis resolved Epigastric abdominal pain ac pauma Lower abdominal pain acute Stool bloody acute Cholecystitis with cholelithiasis resolved Mass of hepatic flexure of colon resolved Cholecystitis with cholelithiasis resolved Mass of hepatic flexure of colon resolved Lipoma of colon acute Cholecystitis with cholelithiasis resolved [facility] Work Phone: Evaluation note* Diagnosis Onset Date Resolution Status Epigastric abdominal pain ac pauma Lower abdominal pain acute Stool bloody acute Cholecystitis with cholelithiasis resolved Mass of hepatic flexure of colon resolved Cholecystitis with cholelithiasis resolved Mass of hepatic flexure of colon resolved Lipoma of colon acute Cholecystitis with cholelithiasis resolved [facility] Work Phone: Evaluation note* Diagnosis Onset Date Resolution Status Obesity acute RADU (obstructive sleep apnea) acute [facility] Work Phone: Evaluation noteNo assessment information available [facility] Work Phone: Evaluation note* Diagnosis Onset Date Resolution Status Obesity chronic RADU (obstructive sleep apnea) chronic [facility] Work Phone: Hospital Discharge instructionsAmbulatory Orders* Oncology Location: None Selected * Plastic surgery Location: None Selected * Radiation Oncology Location: None Selected [facility] Work Phone: Reason for referral (narrative)No reason for referral information available[facility] Work Phone: Chief Complaint and Reason [...] CP FU CSCOPE/US/CAT SCAN/EGD RT COLECTOMY, LAP MOOK RT COLECTOMY, LAP MOOK RT COLECTOMY, LAP MOOK RT COLECTOMY, LAP MOOK Reason for Visit BMI 39.0-39.9,adult Sleep apnea [...] CP FU CSCOPE/US/CAT SCAN/EGD RT COLECTOMY, LAP MOOK RT COLECTOMY, LAP MOOK RT COLECTOMY, LAP MOOK RT COLECTOMY, LAP MOOK RT COLECTOMY/LAB MOOK 10/11 RC Reason for Visit Epigastric abdominal [...] FU CSCOPE/US/CAT SCA N/EGD RT COLECTOMY, LAP MOOK RT COLECTOMY, LAP MOOK RT COLECTOMY, LAP MOOK RT COLECTOMY, LAP MOOK RT COLECTOMY/LAB MOOK 8/2 RC SLEEP APNEA; Reason for Visit Epigastric [...] 51am RADU (obstructive sleep apnea) May 10:51am Chief Complaint Admit Date 1 Y FU May 28, 2024 10: 51am Malignant neoplasm of right kidney June 23, 2024 11:46am SCREENING August 25, 2024 8:35 am Chief Complaint Admit Date 1 Y FU May 28, 2024 10: 51am Malignant neoplasm of right kidney June 23, 2024 11:46am SCREENING August 25, 2024 8:35 am ABN MAMM August 29, 2024 1:54 pm Chief Complaint Admit Date 1 Y FU May 28, 2024 10: 51am Malignant neoplasm of right kidney June 23, 2024 11:46am SCREENING August 25, 2024 8:35 am ABN MAMM August 29, 2024 1:54 pm BIRADS 5 September 15, 2024 12:24 pm Chief Complaint Admit Date 1 Y FU May 28, 2024 10: 51am Malignant neoplasm of right kidney June 23, 2024 11:46am SCREENING August 25, 2024 8:35 am ABN MAMM August 29, 2024 1:54 pm BIRADS 5 September 15, 2024 12:24 pm R. BREAST BX September 15, 2024 12:48 pm Reason for Visit Admit Date Obesity May 28, 2024 10: 51am RADU (obstructive sleep apnea) May 10:51am Abnormal ultrasound of breast September 15, 2024 12:24pm Chief Complaint Admit Date Malignant neoplasm of right kidney June 23, 2024 11:46am SCREENING August 25, 2024 8:35 am ABN MAMM August 29, 2024 1:54 pm BIRADS 5 September 15, 2024 12:24 pm R. BREAST BX September 15, 2024 12:48 pm DISCUSS BREAST SX September 26, 2024 1:10 pm Reason for Visit Admit Date Abnormal ultrasound of breast September 15, 2024 12:24pm Invasive ductal carcinoma of breast September 26, 2024 1:10pm Chief Complaint Admit Date Malignant neoplasm of right kidney June 23, 2024 11:46am SCREENING August 25, 2024 8:35 am ABN MAMM August 29, 2024 1:54 pm BIRADS 5 September 15, 2024 12:24 pm R. BREAST BX September 15, 2024 12:48 pm DISCUSS BREAST SX September 26, 2024 1:10 pm DISCUSS BREAST SX October 01, 2024 1:41 pm Reason for Visit Admit Date Abnormal ultrasound of breast September 15, 2024 12:24pm Invasive ductal carcinoma of breast September 26, 2024 1:10pm Invasive ductal carcinoma of breast October 01, 2024 1:41pm Chief Complaint Admit Date Malignant neoplasm of right kidney June 23, 2024 11:46am SCREENING August 25, 2024 8:35 am ABN MAMM August 29, 2024 1:54 pm BIRADS 5 September 15, 2024 12:24 pm R. BREAST BX September 15, 2024 12:48 pm DISCUSS BREAST SX September 26, 2024 1:10 pm DISCUSS BREAST SX October 01, 2024 1:41 pm BREAST CANCER October 07, 2024 9:58 am BREAST CANCER October 07, 2024 12:5 1pm Reason for Visit Admit Date Abnormal ultrasound of breast September 15, 2024 12:24pm Invasive ductal carcinoma of breast September 26, 2024 1:10pm Invasive ductal carcinoma of breast October 01, 2024 1:41pm Invasive ductal carcinoma of breast October 07, 2024 9:58am Chief Complaint Admit Date Malignant neoplasm of right kidney June 23, 2024 11:46am SCREENING August 25, 2024 8:35 am ABN MAMM August 29, 2024 1:54 pm BIRADS 5 September 15, 2024 12:24 pm R. BREAST BX September 15, 2024 12:48 pm DISCUSS BREAST SX September 26, 2024 1:10 pm DISCUSS BREAST SX October 01, 2024 1:41 pm BREAST CANCER October 07, 2024 9:58 am BREAST CANCER October 07, 2024 12:5 1pm S/P LUMPECTOMY 10-07October 14, 2024 1:5 4pm Chief Complaint Admit Date SCREENING August 25, 2024 8:35 am ABN MAMM August 29, 2024 1:54 pm BIRADS 5 September 15, 2024 12:24 pm R. BREAST BX September 15, 2024 12:48 pm DISCUSS BREAST SX September 26, 2024 1:10 pm DISCUSS BREAST SX October 01, 2024 1:41 pm BREAST CANCER October 07, 2024 9:58 am BREAST CANCER October 07, 2024 12:5 1pm S/P LUMPECTOMY 10-07October 14, 2024 1:5 4pm Reason for Visit Admit Date Abnormal ultrasound of breast September 15, 2024 12:24pm Invasive ductal carcinoma of breast September 26, 2024 1:10pm Invasive ductal carcinoma of breast October 01, 2024 1:41pm Invasive ductal carcinoma of breast October 07, 2024 9:58am S/P lumpectomy, right breast October 14, 2024 1:54pm Chief Complaint Admit Date SCREENING August 25, 2024 8:35 am ABN MAMM August 29, 2024 1:54 pm BIRADS 5 September 15 2025 12:24 pm R. BREAST BX September 15, 2024 12:48 pm DISCUSS BREAST SX September 26, 2024 1:10 pm DISCUSS BREAST SX October 01, 2024 1:41 pm BREAST CANCER October 07, 2024 9:58 am BREAST CANCER October 07, 2024 12:5 1pm S/P LUMPECTOMY 10-07October 14, 2024 1:5 4pm DISCUSS BREAST SX October 30, 2024 9: 57am Chief Complaint Admit Date SCREENING August 25, 2024 8:35 am ABN MAMM August 29, 2024 1:54 pm BIRADS 5 September 15, 2024 12:24 pm R. BREAST BX September 15, 2024 12:48 pm DISCUSS BREAST SX September 26, 2024 1:10 pm DISCUSS BREAST SX October 01, 2024 1:41 pm BREAST CANCER October 07, 2024 9:58 am BREAST CANCER October 07, 2024 12:5 1pm S/P LUMPECTOMY 10-07October 14, 2024 1:5 4pm DISCUSS BREAST SX October 30, 2024 9: 57am BREAST CA November 11, 2024 11:28am FLUIDS AFTER CT November 11, 2024 12:29pm Reason for Visit Admit Date Abnormal ultrasound of breast September 15, 2024 12:24pm Invasive ductal carcinoma of breast September 26, 2024 1:10pm Invasive ductal carcinoma of breast October 01, 2024 1:41pm Invasive ductal carcinoma of breast October 07, 2024 9:58am S/P lumpectomy, right breast October 14, 2024 1:54pm Invasive ductal carcinoma of breast Augu 2024 9:57am S/P lumpectomy, right breast October 9:57am Invasive ductal carcinoma of breast Sept emb2024 11:28am Regional lymph node metastasis present S eptemb2024 11:28am Chief Complaint Admit Date SCREENING August 25, 2024 8:35 am ABN MAMM August 29, 2024 1:54 pm BIRADS 5 September 15, 2024 12:24 pm R. BREAST BX September 15, 2024 12:48 pm DISCUSS BREAST SX September 26, 2024 1:10 pm DISCUSS BREAST SX October 01, 2024 1:41 pm BREAST CANCER October 07, 2024 9:58 am BREAST CANCER October 07, 2024 12:5 1pm S/P LUMPECTOMY 10-07October 14, 2024 1:5 4pm DISCUSS BREAST SX October 30, 2024 9: 57am BREAST CA November 11, 2024 11:28am FLUIDS AFTER CT November 11, 2024 12:29pm BREAST CONSULT November 17, 2024 10:46am Family History No Family History Records Found Relationship Condition Age at Onset Recorded Date/T she mother Malignant neoplasm of colon Unknown Hypertension Unknown father Diabetes mellitus Unknown Relationship Condition Age at Onset Recorded Date/T she mother Malignant neoplasm of colon Unknown Hypertension Unknown Malignant neoplasm Unknown father Diabetes mellitus Unknown sister Malignant neoplasm Unknown Advance Directives No Advanced Directives Records Found Advance Directive Response Recorded Date/ Time Living Will Yes February 09 4:39pm Power of Storage Engineer Yes February 09, 2021 4:39pm Advance Directive Response Recorded Date/ Time Name of Medical Power of Storage Engineer SPOUSE September 08, 2021 9:48am Living Will Yes September 08, 2021 9:48am Power of Storage Engineer Yes September 08 9:48am Advance Directive Response Recorded Date/ Time Name of Medical Power of Storage Engineer SPOUSE September 08, 2021 9:48am Name of Medical Power of Storage Engineer SPOUSE October 04, 2021 11:01am Living Will Yes October 04, 2021 11:01am Power of Storage Engineer Yes October 04 11:01am Advance Directive Response Recorded Date/ Time Name of Medical Power of Storage Engineer SPOUSE October 04, 2021 11:01am Living Will Yes October 04, 2021 11:01am Power of Storage Engineer Yes October 04 11:01am Advance Directive Response Recorded Date/ Time Living Will Yes October 04, 2021 10:01am Power of Storage Engineer Yes October 04 10:01am Advance Directive Response Recorded Date/ Time Living Will Yes October 04, 2021 11:01am Power of Storage Engineer Yes October 04 11:01am Advance Directive Response Recorded Date/ Time Living Will Yes October 04, 2021 11:01am Do you have a Healthcare Power of Storage Engineer? Yes October 04, 2021 11:01am Advance Directive Response Recorded Date/ Time Do you have a Healthcare Power of Storage Engineer? Yes October 02, 2024 9:28am Name of Medical Power of Storage Engineer MARCELA VENEGAS October 02, 2024 9:28am Summary Purpose Additional Source Comments Goals (unrecognized [...] Dr. Nellie Rome MD Primary Care Provider, Referrin g Provider Active Dr. Giancarlo Zuluaga DO Attending Provider Active Team Status: Inactive Member Role Status Dates Dr. Nellie Rome MD Primary Care Provider Active Rani Clemons SHED BOSS, SHED BOSS-C Attending Provider, Referrin g Provider Active Team [...] 2024 End: May 28, 2024 Rani Clemons SHED BOSS, SHED BOSS-C Attending Provider Active Start: May 28, 2024 [...] June 23, 2024 End: June 23, 2024 Team Status: Inactive Member Role Status Dates Dr. Nellie Rome MD Primary Care Provider Active Start: August 25, 2024 End: August 25, 2024 Dr. Nellie Rome MD Attending Provider Active Start: August 25, 2024 End: August 25, 2024 Dr. Nellie Rome MD Referring Provider Active Start: August 25, 2024 End: August 25, 2024 Team Status: Inactive Member Role Status Dates Dr. Nellie Rome MD Primary Care Provider Active Start: August 29, 2024 End: August 29, 2024 Dr. Nellie Rome MD Attending Provider Active Start: August 29, 2024 End: August 29, 2024 Dr. Nellie Rome MD Referring Provider Active Start: August 29, 2024 End: August 29, 2024 Team Status: Active Member Role/Relationship Status Dates Dr. Nellie Roem MD Primary Care Provider Active Team Status: Inactive Member Role/Relationship Status Dates Dr. Nellie Rome MD Primary Care Provider Active Start: May 28, 2024 End: May 28, 2024 Dr. Nellie Rome MD Referring Provider Active Start: May 28, 2024 End: May 28, 2024 Rani Clemons SHED BOSS, SHED BOSS-C Attending Provider Active Start: May 28, 2024 End: May 28, 2024 Team Status: Inactive Member Role/Relationship Status Dates Dr. Nellie Rome MD Primary Care Provider Active Start: June 23, 2024 End: June 23, 2024 Dr. Oswaldo Jones MD Attending Provider Active Start: June 23, 2024 End: June 23, 2024 Dr. Oswaldo Jones MD Referring Provider Active Start: June 23, 2024 End: June 23, 2024 Team Status: Inactive Member Role/Relationship Status Dates Dr. Nellie Rome MD Primary Care Provider Active Start: August 25, 2024 End: August 25, 2024 Dr. Nellie Rome MD Attending Provider Active Start: August 25, 2024 End: August 25, 2024 Dr. Nellie Rome MD Referring Provider Active Start: August 25, 2024 End: August 25, 2024 Team Status: Inactive Member Role/Relationship Status Dates Dr. Nellie Rome MD Primary Care Provider Active Start: August 29, 2024 End: August 29, 2024 Dr. Nellie Rome MD Attending Provider Active Start: August 29, 2024 End: August 29, 2024 Dr. Nellie Rome MD Referring Provider Active Start: August 29, 2024 End: August 29, 2024 Team Status: Inactive Member Role/Relationship Status Dates Dr. Nellie Rome MD Primary Care Provider Active Start: September 15, 2024 End: September 15, 2024 Dr. Nellie Rome MD Referring Provider Active Start: September 15, 2024 End: September 15, 2024 Dr. Jeremiah Franco MD Attending Provider Active Start: September 15, 2024 End: September 15, 2024 Team Status: Inactive Member Role/Relationship Status Dates Dr. Nellie Rome MD Primary Care Provider Active Start: September 15, 2024 End: September 15, 2024 Dr. Jeremiah Franco MD Attending Provider Active Start: September 15, 2024 End: September 15, 2024 Dr. eJremiah Franco MD Referring Provider Active Start: September 15, 2024 End: September 15, 2024 Team Status: Inactive Member Role/Relationship Status Dates Dr. Nellie Rome MD Primary Care Provider Active Start: June 23, 2024 End: June 23, 2024 Dr. Oswaldo Jones MD Attending Provider Active Start: June 23, 2024 End: June 23, 2024 Dr. Oswaldo Jones MD Referring Provider Active Start: June 23, 2024 End: June 23, 2024 Team Status: Inactive Member Role/Relationship Status Dates Dr. Nellie Rome MD Primary Care Provider Active Start: August 25, 2024 End: August 25, 2024 Dr. Nellie Rome MD Attending Provider Active Start: August 25, 2024 End: August 25, 2024 Dr. Nellie Rome MD Referring Provider Active Start: August 25, 2024 End: August 25, 2024 Team Status: Inactive Member Role/Relationship Status Dates Dr. Nellie Rome MD Primary Care Provider Active Start: August 29, 2024 End: August 29, 2024 Dr. Nellie Rome MD Attending Provider Active Start: August 29, 2024 End: August 29, 2024 Dr. Nellie Rome MD Referring Provider Active Start: August 29, 2024 End: August 29, 2024 Team Status: Inactive Member Role/Relationship Status Dates Dr. Nellie Rome MD Primary Care Provider Active Start: September 15, 2024 End: September 15, 2024 Dr. Nellie Rome MD Referring Provider Active Start: September 15, 2024 End: September 15, 2024 Dr. Jeremiah Franco MD Attending Provider Active Start: September 15, 2024 End: September 15, 2024 Team Status: Inactive Member Role/Relationship Status Dates Dr. Nellie Rome MD Primary Care Provider Active Start: September 15, 2024 End: September 15, 2024 Dr. Jeremiah Franco MD Attending Provider Active Start: September 15, 2024 End: September 15, 2024 Dr. Jeremiah Franco MD Referring Provider Active Start: September 15, 2024 End: September 15, 2024 Team Status: Inactive Member Role/Relationship Status Dates Dr. Nellie Rome MD Primary Care Provider Active Start: September 26, 2024 End: September 26, 2024 Dr. Nellie Rome MD Referring Provider Active Start: September 26, 2024 End: September 26, 2024 Dr. Jeremiah Franco MD Attending Provider Active Start: September 26, 2024 End: September 26, 2024 Team Status: Inactive Member Role/Relationship Status Dates Dr. Nellie Rome MD Primary Care Provider Active Start: October 01, 2024 End: October 01, 2024 Dr. Nellie Rome MD Referring Provider Active Start: October 01, 2024 End: October 01, 2024 Dr. Jeremiah Franco MD Attending Provider Active Start: October 01, 2024 End: October 01, 2024 Team Status: Inactive Member Role/Relationship Status Dates Dr. Nellie Rome MD Primary Care Provider Active Start: October 07, 2024 End: October 07, 2024 Dr. Jeremiah Franco MD Attending Provider Active Start: October 07, 2024 End: October 07, 2024 Dr. Jeremiah Franco MD Referring Provider Active Start: October 07, 2024 End: October 07, 2024 Team Status: Active Member Role/Relationship Status Dates Dr. Nellie Rome MD Primary Care Provider Active Start: October 07, 2024 Dr. Jeremiah Franco MD Attending Provider Active Start: October 07, 2024 Dr. Jeremiah Franco MD Referring Provider Active Start: October 07, 2024 Dr. Jeremiah Franco MD Other Provider Active St art: October 07, 2024 Team Status: Inactive Member Role/Relationship Status Dates Dr. Nellie Rome MD Primary Care Provider Active Start: October 14, 2024 End: October 14, 2024 Dr. Nellie Rome MD Referring Provider Active Start: October 14, 2024 End: October 14, 2024 Dr. Jeremiah Franco MD Attending Provider Active Start: October 14, 2024 End: October 14, 2024 Team Status: Inactive Member Role/Relationship Status Dates Dr. Nellie Rome MD Primary Care Provider Active Start: August 25, 2024 End: August 25, 2024 Dr. Nellie Rome MD Attending Provider Active Start: August 25, 2024 End: August 25, 2024 Dr. Nellie Rome MD Referring Provider Active Start: August 25, 2024 End: August 25, 2024 Team Status: Inactive Member Role/Relationship Status Dates Dr. Nellie Rome MD Primary Care Provider Active Start: August 29, 2024 End: August 29, 2024 Dr. Nellie Rome MD Attending Provider Active Start: August 29, 2024 End: August 29, 2024 Dr. Nellie Rome MD Referring Provider Active Start: August 29, 2024 End: August 29, 2024 Team Status: Inactive Member Role/Relationship Status Dates Dr. Nellie Rome MD Primary Care Provider Active Start: September 15, 2024 End: September 15, 2024 Dr. Nellie Rome MD Referring Provider Active Start: September 15, 2024 End: September 15, 2024 Dr. Jeremiah Franco MD Attending Provider Active Start: September 15, 2024 End: September 15, 2024 Team Status: Inactive Member Role/Relationship Status Dates Dr. Nellie Rome MD Primary Care Provider Active Start: September 15, 2024 End: September 15, 2024 Dr. Jeremiah Franco MD Attending Provider Active Start: September 15, 2024 End: September 15, 2024 Dr. Jeremiah Franco MD Referring Provider Active Start: September 15, 2024 End: September 15, 2024 Team Status: Inactive Member Role/Relationship Status Dates Dr. Nellie Rome MD Primary Care Provider Active Start: September 26, 2024 End: September 26, 2024 Dr. Nellie Rome MD Referring Provider Active Start: September 26, 2024 End: September 26, 2024 Dr. Jeremiah Franco MD Attending Provider Active Start: September 26, 2024 End: September 26, 2024 Team Status: Inactive Member Role/Relationship Status Dates Dr. Nellie Rome MD Primary Care Provider Active Start: October 01, 2024 End: October 01, 2024 Dr. Nellie Rome MD Referring Provider Active Start: October 01, 2024 End: October 01, 2024 Dr. Jeremiah Franco MD Attending Provider Active Start: October 01, 2024 End: October 01, 2024 Team Status: Inactive Member Role/Relationship Status Dates Dr. Nellie Rome MD Primary Care Provider Active Start: October 07, 2024 End: October 07, 2024 Dr. Jeremiah Franco MD Attending Provider Active Start: October 07, 2024 End: October 07, 2024 Dr. Jeremiah Franco MD Referring Provider Active Start: October 07, 2024 End: October 07, 2024 Team Status: Active Member Role/Relationship Status Dates Dr. Nellie Rome MD Primary Care Provider Active Start: October 07, 2024 Dr. Jeremiah Franco MD Attending Provider Active Start: October 07, 2024 Dr. Jeremiah Franco MD Referring Provider Active Start: October 07, 2024 Dr. Jeremiah Franco MD Other Provider Active St art: October 07, 2024 Team Status: Inactive Member Role/Relationship Status Dates Dr. Nellie Rome MD Primary Care Provider Active Start: October 14, 2024 End: October 14, 2024 Dr. Nellie Rome MD Referring Provider Active Start: October 14, 2024 End: October 14, 2024 Dr. Jeremiah Franco MD Attending Provider Active Start: October 14, 2024 End: October 14, 2024 Team Status: Inactive Member Role/Relationship Status Dates Dr. Nellie Rome MD Primary Care Provider Active Start: October 20, 2024 End: October 20, 2024 Dr. Nellie Rome MD Attending Provider Active Start: October 20, 2024 End: October 20, 2024 Dr. Nellie Rome MD Referring Provider Active Start: October 20, 2024 End: October 20, 2024 Team Status: Inactive Member Role/Relationship Status Dates Dr. Nellie Rome MD Primary Care Provider Active Start: October 30, 2024 End: October 30, 2024 Dr. Nellie Rome MD Referring Provider Active Start: October 30, 2024 End: October 30, 2024 Dr. Jeremiah Franco MD Attending Provider Active Start: October 30, 2024 End: October 30, 2024 Team Status: Inactive Member Role/Relationship Status Dates Dr. Nellie Rome MD Primary Care Provider Active Start: November 11, 2024 End: November 11, 2024 Dr. Harrison Schneider MD Attending Provider Active Start: November 11, 2024 End: November 11, 2024 Dr. Jeremiah Franco MD Referring Provider Active Start: November 11, 2024 End: November 11, 2024 Team Status: Active Member Role/Relationship Status Dates Dr. Nellie Rome MD Primary Care Provider Active Start: November 11, 2024 Dr. Marcos Givens DO Attending Provider Active Start: November 11, 2024 Dr. Harrison Schneider MD Referring Provider Active Start: November 11, 2024 Team Status: Inactive Member Role/Relationship Status Dates Dr. Nellie Rome MD Primary Care Provider Active Start: November 17, 2024 End: November 17, 2024 Dr. Nellie Rome MD Referring Provider Active Start: November 17, 2024 End: November 17, 2024 Dr. Marcos Givens DO Attending Provider Active Start: November 17, 2024 End: November 17, 2024 INFORMATION SOURCE (unrecogn ized section and content) DATE CREATED AUTHOR 09/29/2024 [facility] DATE CREATED AUTHOR AUTHOR'S ORGANIZ ATION 11/21/2024 [facility] FOR RECORDS PERTAINING TO PATIENTS WHO ARE [...] BE BASED ON THE PRIMARY CLINICAL RECORDS. [facility], [facility]. provides no warranty or guarantee of the accuracy or completeness of information in this document.
== END | disposition home or self-care (01) ==
PROVIDERS: PCP Family Medicine; Referring Provider Internal Medicine Hematology & Oncology; Visit Provider Internal Medicine Hematology & Oncology
DX: C50.919 Malignant neoplasm of unspecified site of unspecified female breast (principal)
CPT/HCPCS: 71260; 74177; Q9967

== ENCOUNTER → 2024-11-24 | Outpatient (CLI) | payer MEDICARE, OTHER, SELFPAY ==
--- NOTE | 2024-11-24 10:00 | NM_ITS ---
PROCEDURE: BONE SCAN WHOLE BODY 11/24/2024 REASON FOR EXAM: STAGING BREAST CANCER Status post right nephrectomy for renal carcinoma. TECHNIQUE: Procedure Code: NMBO Modality: NM Procedure: BONE SCAN WHOLE BODY Whole-body bone scan with anterior and posterior views. Imaging at 3.5 hours. RADIOPHARMACEUTICAL: 26 mCi Technetium-99m MDP IV COMPARISON: None FINDINGS: Bones: Increased radiopharmaceutical uptake seen in the lower lumbar spine as well as in the medial compartments of both knee joints suggestive of degenerative changes. No evidence of bony metastasis. Kidneys: Status post right nephrectomy. NM/Bone Scan Whole Body IMPRESSION: Degenerative changes. No evidence of bone metastasis. Status post right nephrectomy. Reading Location: [place] [id number]
== END | disposition home or self-care (01) ==
LOC: NM 09:59
PROVIDERS: PCP Family Medicine; Referring Provider Internal Medicine Hematology & Oncology; Visit Provider Internal Medicine Hematology & Oncology
DX: C50.919 Malignant neoplasm of unspecified site of unspecified female breast (principal); C77.9 Secondary and unspecified malignant neoplasm of lymph node, unspecified
CPT/HCPCS: 78306; A9503

== ENCOUNTER 2024-12-15 06:04 | Day surgery (SDC) | payer MEDICARE, OTHER, SELFPAY ==
--- NOTE | 2024-12-11 16:27 | PAT.ANESEVAL ---
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 When Was Last Pacemaker Check QUESTION #4 FULL TEXT: You/Your Family Experience fever (hyperthermia) with Anesthesia Last Oral Intake Last Oral intake: Last Oral Intake NPO since Meds taken in AM with sips of water? 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 Female Yes 12/11/24 14:21 HX of Motion Sickness Yes 12/11/24 14:21 HX of N/V After Surgery Yes 12/11/24 14:21 Non-Smoker Yes 12/11/24 14:21 Duration of Surgery greater No 12/11/24 14:21 than 60 minutes Number of Risk Factors 4 12/11/24 14:21 PONV Score Severe Risk 12/11/24 14:21 Height & Weight Height & Weight: Anesthesia: Height & Weight Height 5 ft 3 in 12/08/24 14:41 Respiratory Assessment Respiratory Assessment - soda fountain operator: Respiratory Tract Infection Hx - soda fountain operator Hx Respiratory Tract Infection No 12/11/24 14:21 STOP Sleep Apnea STOP Sleep Apnea - soda fountain operator: STOP Sleep Apnea - soda fountain operator Hx Hypertension Yes: CONTROLLED WITH MEDS 12/11/24 14:21 Hx Sleep Apnea Yes 12/11/24 14:21 CPAP Yes 12/11/24 14:21 BIPAP No 12/11/24 14:21 Do you snore loudly (louder than talking or can be heard Do you often feel tired/ fatigued/ sleepy during daytime? Has anyone observed you stop breathing during sleep? STOP Results Positive 12/11/24 14:21 QUESTION #5 FULL TEXT : Do you snore loudly (louder than talking or can be heard through closed doors)? 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 Specify any problems Hx of Preganancy in last 3 No 12/11/24 14:21 Months Nurse Filling Out Transfusion DSCHRIBER 12/11/24 14:21 & Questions: Date: 12/11/24 12/11/24 14:21 Time: 14:23 12/11/24 14:21 Patient unable to answer at this time (ie. confused, unrespo /Reproduction History /Reproductive History - soda fountain operator: /Reproductive Hx- soda fountain operator Hx Now No 12/11/24 14:21 Gestational Age (in weeks): EDC: Hx Hx Para Hx Section SAB No 12/11/24 14:21 PFSH Medical History (Updated 12/11/24 @ 14:26 by Solange Hicks) Encounter for education Regional lymph node metastasis present Cancer of kidney Oral thrush History of echocardiogram Fibromyalgia Abnormal ultrasound of breast Abnormal mammogram Mass Cancer Syncope Stool bloody Gastric reflux Chest pain Abdominal pain Diverticulitis Wears glasses Anxiety Thyroid disease Arthritis Back pain History of diverticulitis Non-smoker CPAP (continuous positive airway pressure) dependence Shortness of breath on exertion History of pain when walking Nodular thyroid disease Hemorrhoids Hypertension Home Medications ?Medication ?Instructions ?Recorded ?Last Taken ?Type omega-3 fatty acids 1,000 mg 2,000 mg PO QDAY SUPPLEMENT 06/26/17 10/06/24 History capsule (Fish Oil Concentrate) acetaminophen 325 mg tablet 650 mg PO Q4H PRN Pain 02/02/21 Unknown History (Tylenol) magnesium citrate 125 mg capsule 250 mg PO DAILY 05/23/23 10/06/24 History cholecalciferol (vitamin D3) 25 25 mcg PO QDAY 09/26/24 10/06/24 History mcg (1,000 unit) capsule ejzagfnz-cocg-wcss 8 mg-folic 400 1 tab PO QDAY 09/26/24 10/06/24 History mcg-K 50 mcg-lutein 300 mcg tablet (Multivitamin Women 50 Plus) lisinopril 20 mg tablet 20 mg PO QDAY 11/11/24 Unknown History dexamethasone 4 mg tablet 8 mg (2 x 4 mg) PO .COMPLEX #12 12/05/24 Unknown Rx tabs lidocaine-prilocaine 2.5 %-2.5 % 1 applic topical ONCE PRN port 12/05/24 Unknown Rx topical cream access 30 days #30 grams ondansetron 8 mg disintegrating 8 mg PO Q8H PRN nausea and 12/05/24 Unknown Rx tablet vomiting #30 tabs prochlorperazine maleate 10 mg 10 mg PO Q6H PRN nausea and 12/05/24 Unknown Rx tablet vomiting #30 tabs Allergy/AdvReac Type Severity Reaction Status Date / Time acetazolamide (From Diamox AdvReac DEPRESSION Verified 12/11/24 14:18 Sequels) duloxetine (From Cymbalta) AdvReac DEPRESSION Verified 12/11/24 14:18 tetracycline AdvReac DEPRESSION Verified 12/11/24 14:18 Family History Mother Colon cancer Hypertension Cancer pancreatic Father Diabetes Sister Cancer lymphoma Surgical History (Updated 12/11/24 @ 14:26 by Solange Hicks) Hx of breast surgery S/P lumpectomy, right breast H/O lumpectomy History of cholecystectomy History of colectomy History of esophagogastroduodenoscopy (EGD) History of nephrectomy, right Hx of colonoscopy S/P thyroid biopsy history excision right breast lump Social History household members: spouse housing: house Smoking Status: Never smoker alcohol intake: never substance use type: does not use Audit: Pertinent Findings Pertinent Findings EKG Perinent findings: 09/08/2021. Normal sinus rhythm. Left anterior fascicular block. LVH with QRS widening Recommendation Anesthesia Recommendation Anesthesia recommendation: OPTIMIZED for anesthesia
[2024-12-15] VITALS (8 sets, daily range): BP systolic 116–154; BP diastolic 60–90; PULSE 50–61; RESP 14–18; TEMP 36.1–36.5; O2SAT 95–99; BMI 36.7
--- OUTSIDE RECORDS SUMMARY | 2024-12-15 06:08 | XMS RPT_ITS | CCD ---
Author Organization [facility] CliniSywy Care Team Providers Care Physical Therapy Aid Name Role Phone Dr. Nellie Rome Primary Care Provider [phone] Dr. Nellie Rome Referring Provider [phone] Kaci AUTOMATIC PINSETTER MECHANICVINI Attending Provider George, Dr. Alex Barker Attending Provider [phone] Cekaylin, Dr. Alex Barker Referring Provider George, Dr. Alex Barker Other Provider Dr. Pan Jimenez Attending Provider CebuDr. Alex wright Referring Provider Cekaylin, Dr. Alex Barker Admit Provider Dr. Nellie Rome Primary Care Provider Dr. Nellie oRme Referring Provider [phone] ITALIA Perez Attending Provider Dr. Nellie Rome Primary Care Provider Dr. Nellie Rome Referring Provider [phone] Alex Vazquez Attending Provider George, Dr. Alex Barker Referring Provider Cekaylin, Dr. Alex Barker Other Provider Dr. Nellie Rome Primary Care Provider Dr. Nellie Rome Referring Provider [phone] Giancarlo Zuluaga Attending Provider Dr. Nellie Rome Primary Care Provider Dr. Nellie Rome Referring Provider Dr. Giancarlo Zuluaga Attending Provider Latricia UMAÑA, Dr. Ballard Primary Care Provider Latricia UMAÑA, Dr. Ballard Attending Provider Latricia UMAÑA, Dr. Ballard Referring Provider Kaci ANAYA-CRani Attending Provider Karen UMAÑA, Dr. Oswaldo Elise Attending Provider Karen UMAÑA, Dr. Oswaldo Elise Referring Provider [phone] Latricia UMAÑA, Dr. Ballard Primary Care Provider Latricia UMAÑA, Dr. Ballard Referring Provider Latricia UMAÑA, Dr. Ballard Attending Provider Salvador UMAÑA, Dr. Jeremiah Hawley Attending Provider Salvador UMAÑA, Dr. Jeremiah Hawley Referring Provider Latricia UMAÑA, Dr. Ballard Primary Care Provider Latricia UMAÑA, Dr. Ballard Referring Provider Salvador UMAÑA, Dr. Jeremiah Hawley Other Provider Latricia UMAÑA, Dr. Ballard Primary Care Provider Wyatt UMAÑA, Dr. Terry Attending Provider Dr. Marcos Givens DO Attending Provider Wyatt UMAÑA, Dr. Terry Referring Provider Latricia UMAÑA, Dr. Ballard Primary Care Physician Latricia UMAÑA, Dr. Ballard Attending Physician Salvador UMAÑA, Dr. Jeremiah Hawley Attending Physician Salvador UMAÑA, Dr. Jeremiah Hawley Nurse Practitioner Wyatt UMAÑA, Dr. Terry Attending Physician Chon MONROY, Dr. Rodríguez Attending Physician Wyatt UMAÑA, Dr. Terry Referring Provider Kathe AUTOMATIC PINSETTER MECHANIC-C, Maggi Attending Physician Oswaldo Jones Attending Unavailable Miedel, [place] Primary Care Unavailable Miedel, Nellei Referring Unavailable Marcos Givens Attending Unavailable Miedel, [place] Primary Care Unavailable Miedel, Nellie Referring Unavailable Jeremiah Franco Attending Unavailable Miedel, [place] Primary Care Unavailable Jeremiah Franco Referring Unavailable Miedel, [place] Primary Care Unavailable Jeremiah Franco Attending Unavailable Jeremiah Franco Consulting Unavailable Jeremiah Franco Referring Unavailable Miedel, [place] Primary Care Unavailable Jeremiah Franco Attending Unavailable Miedel, [place] Primary Care Unavailable Marcos Givens Attending Unavailable RaimundokarusHiraour Referring Unavailable Miedel, [place] Primary Care Unavailable Isckarus, Harrison Referring Unavailable IsckarusHarrison Attending Unavailable Miedel, [place] Primary Care Unavailable Miedel, Nellie Referring Unavailable WanJeremiah almodovar Attending Unavailable Miedel, [place] Primary Care Unavailable Jeremiah Franco Referring Unavailable IsckarusHarrison Attending Unavailable Miedel, Nellie Referring Unavailable Miedel, [place] Primary Care Unavailable Jeremiah Franco Attending Unavailable Miedel, Nellie Referring Unavailable Miedel, [place] Primary Care Unavailable Kathe AUTOMATIC PINSETTER MECHANIC, Maggi Attending Unavailable Miedel, Nellie Referring Unavailable Miedel, [place] Primary Care Unavailable RaimundokarusHarrison Attending Unavailable Miedel, [place] Primary Care Unavailable WanJeremiah almodovar Attending Unavailable Miedel, Nellie Referring Unavailable Miedel, [place] Primary Care Unavailable Isckarus, Mansour Referring Unavailable IsckarusHarrison Attending Unavailable Jeremiah Franco Referring Unavailable Miedel, [place] Primary Care Unavailable Jeremiah Franco Attending Unavailable Miedel, Nellie Attending Unavailable Miedel, Nellie Primary Care Unavailable Miedel, Nellie Referring Unavailable Miedel, Nellie Attending Unavailable Miedel, Nellie Referring Unavailable Miedel, Nellie Primary Care Unavailable Jeremiah Franco Referring Unavailable Miedel, Nellie Primary Care Unavailable Jeremiah Franco Attending Unavailable Miedel, Nellie Referring Unavailable Miedel, Nellie Primary Care Unavailable Jeremiah Franco Attending Unavailable Miedel, Nellie Attending Unavailable Miedel, Nellie Primary Care Unavailable Miedel, Nellie Referring Unavailable KarenOswaldo Referring Unavailable KarenOswaldo Attending Unavailable Miedel, Nellie Primary Care Unavailable Miedel, Nellie Referring Unavailable Miedel, Nellie Primary Care Unavailable Jeremiah Franco Attending Unavailable Miedel, Nellie Referring Unavailable Miedel, Nellie Primary Care Unavailable Rani Clemons NP Attending Unavailable Miedel, Nellie Referring Unavailable Miedel, Nellie Attending Unavailable Miedel, Nellie Primary Care Unavailable Miedel, Nellie Referring Unavailable Miedel, Nellie Attending Unavailable Miedel, Nellie Primary Care Unavailable Allergies Allergy Classification Reported Allergen(s) Allergy Type Date of Onset Reaction(s) Facility (20 sources) acetaZOLAMIDE Drug Allergy 07-04-2021 [facility] (20 sources) DULoxetine Drug Allergy 07-04-2021 [facility] (20 sources) Tetracycline Drug Allergy 07-04-2021 [facility] (1 source) acetaZOLAMIDE Drug Allergy 12-11-2024 [facility] (1 source) DULoxetine Drug Allergy 12-11-2024 [facility] (1 source) Tetracycline Drug Allergy 12-11-2024 [facility] Medications Current Medications Medication Drug Class(es) Dates Sig (Normalized) Sig (Original) acetaminophen 325 mg oral tablet (20 sources) Start: 02-02-2021 take 2 tablets by mouth every four hours as needed for pain cholecalciferol 0.025 mg oral capsule (20 sources) Vitamin D Start: 09-26-2024 take 1 capsule by mouth once daily Start: 02-02-2021 End: 05-23-2023 take 1 tablet by mouth once daily Cholecalciferol (Vitamin D3) (Vitamin D3) 125 mcg (5,000 unit) Tablet Discontinued 125 ug PO DAILY February 02, 2021 1:00am May 23, 2023 10:39am SUPPLEMENT dexamethasone 4 mg oral tablet (4 sources) Corticosteroid Start: 12-05-2024 take 2 tablets by mouth twice daily Start: 12-05-2024 take 2 tablets by mouth twice daily Start: 12-05-2024 take 2 tablets by mouth twice daily Start: 12-05-2024 take 2 tablets by mouth twice daily lidocaine 25 mg/ml / prilocaine 25 mg/ml topical cream (4 sources) Antiarrhythmic, Amide Local Anesthetic Start: 12-05-2024 Start: 12-05-2024 Start: 12-05-2024 Start: 12-05-2024 lisinopril 20 mg oral tablet (7 sources) Angiotensin Converting Enzyme Inhibitor Start: 11-11-2024 take 1 tablet by mouth once daily magnesium citrate 125 mg oral capsule (20 sources) Start: 05-23-2023 take 2 capsules by mouth once daily Start: 05-23-2023 take 250 mg by mouth once paolo y Magnesium Citrate Active 250 MG PO DAILY May 23, 2023 12:00am Pqrftzuu-Ijh-Ekbm-Fa-Vit K-L ut (Multivitamin Women 50 Plus) 8 mg iron-400 mcg-50 mcg tablet (13 sources) Start: 09-26-2024 take 1 tablet by valerie th once daily Start: 09-26-2024 take 1 tablet by valerie th once daily Xbqenczw-Ibb-Ssyd-Fa-Vit K-Lut (Multivitamin Women 50 Plus) 8 mg iron-400 mcg-50 mcg tablet Active 1 {tbl} PO daily September 26, 2024 12:00am Complies with drug therapy Start: 09-26-2024 take 1 tablet by valerie th once daily Edpdorpc-Fgt-Yyyw-Fa-Vit K-Lut (Multivitamin Women 50 Plus) 8 mg iron-400 mcg-50 mcg tablet Active 1 {tbl} PO daily September 26, 2024 12:00am nystatin [id number] unt/ml oral suspension (16 sources) Polyene Antifungal Start: 10-14-2024 End: 11-11-2024 Sylvania-3 Fatty Acids (Fish Oi l Concentrate) 1,000 mg capsule (20 sources) Start: 06-26-2017 Start: 06-26-2017 Sylvania-3 Fatty Acids (Fish Oil Concentrate) 1,000 mg capsule Active 2000 mg PO daily June 26, 2017 12:00am SUPPLEMENT Complies with drug therapy Start: 06-26-2017 Sylvania-3 Fatty Acids (Fish Oil Concentrate) 1,000 mg capsule Active 2000 mg PO daily June 26, 2017 12:00am SUPPLEMENT Start: 06-26-2017 Sylvania-3 Fatty Acids (Fish Oil Concentrate) 1,000 mg capsule Active 2000 mg PO daily June 26, 2017 12:00am Start: 06-26-2017 Sylvania-3 Fatty Acids (Fish Oil Concentrate) 1,000 mg capsule Active 2000 MG PO daily June 25, 2017 11:00pm Start: 06-26-2017 Sylvania-3 Fatty Acids (Fish Oil Concentrate) 1,000 mg capsule Active 2000 MG PO daily June 26, 2017 12:00am ondansetron 8 mg disintegrating oral tablet (4 sources) Serotonin-3 Receptor Antagonist Start: 12-05-2024 take 1 tablet by mouth every eight hours as needed for nausea and vomiting Start: 12-05-2024 take 1 tablet by valerie th every eight hours as needed for nausea and vomiting Start: 12-05-2024 take 1 tablet by valerie th every eight hours as needed for nausea and vomiting Start: 12-05-2024 take 1 tablet by valerie th every eight hours as needed for nausea and vomiting prochlorperazine 10 mg oral tablet (4 sources) Phenothiazine Start: 12-05-2024 take 1 tablet by mouth every six hours as needed for nausea and vomiting Start: 12-05-2024 take 1 tablet by valerie th every six hours as needed for nausea and vomiting Start: 12-05-2024 take 1 tablet by valerie th every six hours as needed for nausea and vomiting Start: 12-05-2024 take 1 tablet by valerie th every six hours as needed for nausea and vomiting Completed/Discontinued Medications Medication Drug Class(es) Dates Sig [...] May 23, 2023 10:39am herbal sleep supplement (11 sources) Start: 10-07-2024 End: 11-11-2024 herbal sleep [...] 2021 1:00am May 23, 2023 10:39am Citlalli Max (20 sources) Start: 02-02-2021 End: 07-04-2021 Citlalli Max Discontinued 1 NMA SL/PO DAILY February 02, 2021 1:00am July 04, 2021 11:15am SUPPLEMENT Start: 02-02-2021 End: 07-04-2021 Citlalli Max Discontinued 1 NMA SL/PO DAILY February 02, [...] 12:00am oxyCODONE hydrochloride 5 mg oral capsule (11 sources) Opioid Agonist Start: 10-07-2024 End: 10-14-2024 [...] sources) Epigastric pain; Translations: [Epigastric pain] Episodic Administrative/social admission (8 sources) Patient encounter status; Translations: [Counseling, unspecified] 12-02-2024 Episodic Biliary tract disease (20 sources) Biliary calculus; Translations: [Calculus of gallbladder with chronic cholecystitis without obstruction] Episodic Cancer of breast (20 sources) Infiltrating duct carcinoma of breast; Translations: [Malignant neoplasm of unspecified site of unspecified female breast] Onset: 11-12-2024 09-26-2024 Chronic Cancer of kidney and renal pelvis (9 sources) Malignant tumor of kidney; Translations: [Malignant [...] Episodic Comment on above: KIDNEY MASS Mycoses (10 sources) Candidiasis of mouth; Translations: [Candidal stomatitis] [...] index [BMI] 40.0-44.9, adult] Onset: 05-28-2024 Chronic Residual codes; unclassified (20 sources) Sleep apnea; [...] Onset: 05-28-2024 02-23-2022 Chronic Residual codes; unclassified (20 sources) Other specified postprocedural states; Translations: [Status post right breast lumpectomy] 10-14-2024 Episodic Secondary malignancies (20 sources) Regional lymph node metastasis present ; Translations: [Secondary and unspecified malignant neoplasm of lymph node, unspecified] 11-11-2024 Chronic Secondary malignancies (1 source) Secondary and unspecified malignant neoplasm of lymph node, unspecified; Translations: [Secondary and unspecified malignant neoplasm of lymph node, unspecified] Onset: 11-27-2024 Chronic Thyroid disorders (20 sources) Thyroid nodule; Translations: [Nontoxic single thyroid nodule] 06-26-2017 Chronic Unclassified (9 sources) Infiltrating ductal carcinoma of breast Unclassified (20 sources) C50.919 - Malignant neoplasm of unspecified site of unspecified female breast Unclassified (1 source) Obesity, class 3; Translations: [Obesity, class 3] Onset: 05-28-2024 Past or Other Problems Problem Classification Problem Date Documented Date Episodic/Chronic Other screening for suspected conditions (not mental disorders or infectious disease) (20 sources) Ultrasonography of breast abnormal; Translations: [Other abnormal and inconclusive findings on diagnostic imaging of breast] Onset: 08-28-2024 09-15-2024 Episodic Unclassified (20 sources) history excision right breast lump 10-10-2021 Results Test Name Value Interpretation Reference Range Facility MR/PATLuisa 12-11-2024 [facility] Department [address] [place] [address] PAT - Anesthesia 12/11/24 1627 MR#: [id number] Acct: [id number] Name: NORI RODRIGUEZ Rep #: [id number] : 1955 69 From: Keaton Murphy MD PCP: Dr. Nellie Rome MD Status:PRE [facility] Y Race: C Location: [facility] Pre-Assessment Diagnosis/Proposed Procedure Planned Operative Procedure(s): INSERTION VASCULAR PORT LEFT POSS RIGHT Anesthesia History Anesthesia History - quality system manager: Anesthesia History - quality system manager Hx Hospitalization No 12/11/24 14:21 Any Problems With Anesthesia Yes: VERY SENSITIVE TO MEDS 12/11/24 14:21 , NAUSEA Cholinesterase deficiency No 12/11/24 14:21 You/Your Family Experience No 12/11/24 14:21 fever (hyperthermia) with Relationship Recent Exposure to Contagious No 10/07/24 10:26 Disease Does patient have nerve No 12/11/24 14:21 stimulator Patient instructed to have device shut off --Does patient have Pacemaker or ICD? When Was Last Pacemaker Check QUESTION #4 FULL TEXT: You/Your Family Experience fever (hyperthermia) with Anesthesia Last Oral Intake Last Oral intake: Last Oral Intake NPO since Meds taken in AM with sips of water? Meds patient instructed to take am of surgery PONV PONV - quality system manager: PONV - quality system manager Female Yes 12/11/24 14:21 HX of Motion Sickness Yes 12/11/24 14:21 HX of N/V After Surgery Yes 12/11/24 14:21 Non-Smoker Yes 12/11/24 14:21 Duration of Surgery greater No 12/11/24 14:21 than 60 minutes Number of Risk Factors 4 12/11/24 14:21 PONV Score Severe Risk 12/11/24 14:21 Height Weight Height Weight: Anesthesia: Height Weight Height 5 ft 3 in 12/08/24 14:41 Respiratory Assessment Respiratory Assessment - quality system manager: Respiratory Tract Infection Hx - quality system manager Hx Respiratory Tract Infection No 12/11/24 14:21 STOP Sleep Apnea STOP Sleep Apnea - quality system manager: STOP Sleep Apnea - quality system manager Hx Hypertension Yes: CONTROLLED WITH MEDS 12/11/24 14:21 Hx Sleep Apnea Yes 12/11/24 14:21 CPAP Yes 12/11/24 14:21 BIPAP No 12/11/24 14:21 Do you snore loudly (louder than talking or can be heard Do you often feel tired/ fatigued/ sleepy during daytime? Has anyone observed you stop breathing during sleep? STOP Results Positive 12/11/24 14:21 QUESTION #5 FULL TEXT : Do you snore loudly (louder than talking or can be heard through closed doors)? 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 Specify any problems Hx of Preganancy in last 3 No 12/11/24 14:21 Months Nurse Filling Out Transfusion DSCHRIBER 12/11/24 14:21 Questions: Date: 12/11/24 12/11/24 14:21 Time: 14:23 12/11/24 14:21 Patient unable to answer at this time (ie. confused, unrespo /Reproduction History /Reproductive History - quality system manager: /Reproductive Hx- quality system manager Hx Now No 12/11/24 14:21 Gestational Age (in weeks): EDC: Hx Hx Para Hx Section SAB No 12/11/24 14:21 PFSH Medical History (Updated 12/11/24 @ 14:26 by Solange Hicks) Encounter for education Regional lymph node metastasis present Cancer of kidney Oral thrush History of echocardiogram Fibromyalgia Abnormal ultrasound of breast Abnormal mammogram Mass Cancer Syncope Stool bloody Gastric reflux Chest pain Abdominal pain Diverticulitis Wears glasses Anxiety Thyroid disease Arthritis Back pain History of diverticulitis Non-smoker CPAP (continuous positive airway pressure) dependence Shortness of breath on exertion History of pain when walking Nodular thyroid disease Hemorrhoids Hypertension Home Medications ???Medication ???Instructions ???Recorded ???Last Taken ???Type omega-3 fatty acids 1,000 mg 2,000 mg PO QDAY SUPPLEMENT 10/06/24 History capsule (Fish Oil Concentrate) acetaminophen 325 mg tablet 650 mg PO Q4H PRN Pain 02/02/21 Un (more content not included)... Normal [facility] Surgery Visit Reporton 12-08 Surgery Visit Report [facility] [address] [place] [address]. [address] [place] [address] OFFICE VISIT Date of Service: 12/08/24 MR#: [id number] Acct: [id number] Name: NORI RODRIGUEZ Rep #: [id number] : 1955 Provider: Dr. Jeremiah almodovar MD Age/Sex: 69/F Location: [facility] Status: Signed Intake Vital Signs 12/02/24 08:58 12/08/24 14:41 Height 5 ft 3 in 5 ft 3 in Weight: 206 lb 206 lb 8 oz BMI 36.5 36.6 BP 143/77 H 161/83 H Blood Pressure Location Lt brachial Rt brachial Position Sitting Sitting Respiration 18 18 Pulse 78 67 Pulse Source Monitor Monitor Temp 98.2 F 97.8 F Temp Source Temporal Pulse Oximetry (%) 96 98 Oxygen Delivery Method room air room air Intake Visit Reasons: PORT PLACEMENT Chief Complaint: port placedment Accompanied by: Sister Allergies acetazolamide (From Diamox Sequels) Adverse Reaction (Verified 12/08/24 14:42) DEPRESSION duloxetine (From Cymbalta) Adverse Reaction (Verified 12/08/24 14:42) DEPRESSION tetracycline Adverse Reaction (Verified 12/08/24 14:42) DEPRESSION Medications ???Medication ???Instructions ???Recorded ???Confirmed ???Type omega-3 fatty acids 1,000 mg 2,000 mg PO QDAY SUPPLEMENT 12/08/24 History capsule (Fish Oil Concentrate) acetaminophen 325 mg tablet 650 mg PO Q4H PRN Pain 02/02/21 History (Tylenol) magnesium citrate 125 mg capsule 250 mg PO DAILY 05/23/23 12/08/24 History cholecalciferol (vitamin D3) 25 25 mcg PO QDAY 09/26/24 12/08/24 H istory mcg (1,000 unit) capsule qxgzyyhv-swoz-okbm 8 mg-folic 400 1 tab PO QDAY 09/26/24 12/08/24 H istory mcg-K 50 mcg-lutein 300 mcg tablet (Multivitamin Women 50 Plus) lisinopril 20 mg tablet 20 mg PO QDAY 11/11/24 12/08/24 Hi story nystatin 100,000 unit/mL oral 1 ml PO TID 11/11/24 12/08/24 Hist ory suspension dexamethasone 4 mg tablet 8 mg (2 x 4 mg) PO .COMPLEX #12 12/08/24 Rx tabs lidocaine-prilocaine 2.5 %-2.5 % 1 applic topical ONCE PRN port 12/08/24 Rx topical cream access 30 days #30 grams ondansetron 8 mg disintegrating 8 mg PO Q8H PRN nausea and 5 12/08/24 Rx tablet vomiting #30 tabs prochlorperazine maleate 10 mg 10 mg PO Q6H PRN nausea and 12/08/24 Rx tablet vomiting #30 tabs Have you fallen in the past year?: No PFSH Medical History Encounter for education Regional lymph node metastasis present Cancer of [...] lump Family History Mother Colon cancer Hypertension Cancer pancreatic Father Diabetes Sister Cancer lymphoma Social History household members: spouse housing: house Smoking Status: Never smoker alcohol intake: never substance use type: does not use HPI HPI HPI: The patient is a 69-year-old female with recently discovered right breast cancer. Her treating oncology team is recommending chemotherapy. As a result, she is being seen today to be evaluated for possible Mediport placement. ROS General General: Yes weight change and [...] No depression, anxiety or hearing voices Resp Respirat (more content not included)... Normal [facility] Oncology Visit Reporton 11-11 Oncology Visit Report [facility] [place] [address] OFFICE VISIT Date of Service: 12/02/24 0855 MR#: [id number] Acct: [id number] Name: NORI RODRIGUEZ Rep #: [id number] : 1955 From: Maggi Archuleta NP AUTOMATIC PINSETTER MECHANIC -C Age/Sex: 69/F [place] [facility] [place] Status: Signed HPI Subjective Date of Service 12/02/24 Chief Complaint Breast cancer History of Present [...] - ER: positive (100%, strong intensity). - DC: positive (75% invasive/100% in situ, variable intermediate-strong intensity). - [id number]: equivocal (2+) - [id number]: Not amplified (final) Note: IHC for Ecadherin, [...] FISH: NA Ki67: 40% Specimen in which ER/DC/HER2 performed: [id number] A pTNM: pT2 pN2a Additional findings: fibrocystic mastopathy November 21, 2024 CT chest abdomen and pelvis initial staging: IMPRESSION: No change in small retroperitoneal lymph nodes compared to CT abdomen and pelvis 06/23/2024. Otherwise, no evidence of metastatic disease in the chest, abdomen and pelvis. November 24, 2024 bone scan: IMPRESSION: Degenerative changes. No evidence of bone metastasis. Status post right nephrectomy. Interval History The patient is presenting to clinic accompanied by spouse and daughter in law for an education (more content not included)... Normal [facility] Oncology Visit Reporton 11-10 Oncology Visit Report [facility] [address] [place] [id number] OFFICE VISIT Date of Service: 11/27/24 1207 MR#: [id number] Acct: [id number] Name: NORI RODRIGUEZ Rep #: [id number] : 1955 From: Harrison Schneider MD Age/Sex: 69/F [place] [facility] [place]: Signed HPI Subjective Date of Service 11/27/24 Chief Complaint Breast cancer History of Present [...] - ER: positive (100%, strong intensity). - DC: positive (75% invasive/100% in situ, variable intermediate-strong intensity). - [id number]: equivocal (2+) - [id number]: Not amplified (final) Note: IHC for Ecadherin, [...] FISH: NA Ki67: 40% Specimen in which ER/DC/HER2 performed: [id number] A pTNM: pT2 pN2a Additional findings: fibrocystic mastopathy November 21, 2024 CT chest abdomen and pelvis initial staging: IMPRESSION: No change in small retroperitoneal lymph nodes compared to CT abdomen and pelvis 06/23/2024. Otherwise, no evidence of metastatic disease in the chest, abdomen and pelvis. November 24, 2024 bone scan: IMPRESSION: Degenerative changes. No evidence of bone metastasis. Status post right nephrectomy. [facility] Medical History Regional lymph node metastasis present Ca (more content not included)... Normal [facility] Bone Scan Whole Bodyon 11-24 Bone Scan Whole Body [facility] Imaging Services [address], [place] [address] Bone Scan Whole Body MR#: [id number] Acct: [id number] Name: NORI RODRIGUEZ Rep #: [id number] : 1955 F 69 From: [place] w[place] MD PCP: Dr. Nellie Rome MD Status: REG CLI Study: Bone Scan Whole Body Date of Exam: 11/24/24 Exam# [id number] Ordering Dr: Harrison Schneider MD PROCEDURE: BONE SCAN WHOLE BODY 11/24/2024 REASON FOR EXAM: STAGING BREAST CANCER Status post right nephrectomy for renal carcinoma. TECHNIQUE: Procedure Code: NMBO Modality: NM Procedure: BONE SCAN WHOLE BODY Whole-body bone scan with anterior and posterior views. Imaging at 3.5 hours. RADIOPHARMACEUTICAL: 26 mCi Technetium-99m MDP IV COMPARISON: None FINDINGS: Bones: Increased radiopharmaceutical uptake seen in the lower lumbar spine as well as in the medial compartments of both knee joints suggestive of degenerative changes. No evidence of bony metastasis. Kidneys: Status post right nephrectomy. NM/Bone Scan Whole Body IMPRESSION: Degenerative changes. No evidence of bone metastasis. Status post right nephrectomy. Reading Location: [place] [address] CC: Dr. Nellie Rome MD; Dr. Harrison Schneider MD Parts Room Clerk: Signed Normal [facility] CT Chest, Abd, Pel w/Contras ton 11-21-2024 CT Chest, Abd, Pel w/Contrast [facility] Imaging Services [address] [place], [place] [address] CT Chest, Abd, Pel w/Contrast MR#: [id number] Acct: [id number] Name: NORI RODRIGUEZ Rep #: [id number] : 1955 F 69 From: Mireille Lino MD PCP: Dr. Nellie Rome MD Status: REG CLI Study: CT Chest, Abd, Pel w/Contrast Date of Exam: Exam# [id number] Ordering Dr: Harrison Schneider MD PROCEDURE: CT CHEST, ABD, PEL W/CONTRAST 11/21/2024 REASON FOR EXAM: STAGING BREAST CANCER IV CONTRAST ONLY TECHNIQUE: Chest, abdomen and pelvis CT with intravenous contrast. Coronal and Sagittal reconstruction series were provided. One or more dose reduction techniques were used (e.g., Automated exposure control, adjustment of the mA and/or kV according to patient size, use of iterative reconstruction technique. PATIENT PREPARATION: Per protocol CONTRAST: Isovue 370 VOLUME: 96mL 20 gauge IV RADIATION DOSE SUMMARY: CTDlvol: 18.86 mGy DLP: 1885.0 mGycm COMPARISON: None. FINDINGS: CT CHEST: Hardware: None. Mediastinum and lymph nodes: Left thyroid goiter. No mediastinal lymphadenopathy. No axillary lymphadenopathy Heart and Vasculature: No aortic aneurysm. Atherosclerotic calcifications. Lungs and Airways: Clear. The airways are patent. Pleura: No pleural effusion. No pneumothorax. Bones: No acute bony abnormalities. Soft tissues: Inversion of the right breast nipple and soft tissue thickening can be consistent with known breast cancer. CT ABDOMEN/PELVIS: Liver: Unremarkable. Gallbladder: The gallbladder is likely surgically absent. Spleen: Unremarkable. Pancreas: Unremarkable. Adrenals: Unremarkable. Kidneys: The right kidney is surgically resected. No left hydronephrosis. No nephrolithiasis. Bladder: Unremarkable. Reproductive Organs: Unremarkable. Bowel: Surgical sutures of the right colon. Extensive sigmoid colon diverticulosis with no evidence of acute diverticulitis. No bowel wall thickening. Appendix: No evidence of acute appendicitis. Lymph nodes: Small retroperitoneal lymph nodes with the largest is left para-aortic measuring 1.3 x 0.8 mm. Vasculature: Vascular atherosclerotic calcifications. Peritoneum / Retroperitoneum: No free air or free fluid. Bones: Multilevel degenerate changes of the lumbar spine. No acute or pathologic bony abnormalities. CT/CT Chest, Abd, Pel w/Contrast IMPRESSION: No change in small retroperitoneal lymph nodes compared to CT abdomen and pelvis 06/23/2024. Otherwise, no evidence of metastatic disease in the chest, abdomen and pelvis. Reading Location: [facility] CC: Dr. Nellie Rome MD; Dr. Harrison Schneider MD Parts Room Clerk: Signed Normal [facility] Radiation Oncology Visiton 0 11-17-2024 Radiation Oncology Visit [facility] [place] [address] OFFICE VISIT Date of Service: 11/17/24 1100 MR#: [id number] Acct: [id number] Name: NORI RODRIGUEZ Rep #: [id number] : 1955 From: Marcos Chon DO Age/Sex: 69/F [place] [facility] [place]: Signed Intake Vital Signs 10/30/24 10:08 [...] 11/17/24 H istory mcg (1,000 unit) capsule slgybchp-sfzi-rigv 8 mg-folic 400 1 tab PO QDAY [...] 10/06/24 H istory mcg (1,000 unit) capsule lbcyrwjw-ekda-dovt 8 mg-folic 400 1 tab PO QDAY [...] grade 3 invasive ductal carcinoma (ER 100%, DC 75%, HER2 2+ IHC and not amplified on FISH) of the right breast status post bilateral screening mammogram (08/25/2024), right breast ultrasound (08/29/2024), completion of right breast and right axilla (more content not included)... Normal [facility] Absolute lymphocyte countOrd ered By: Harrison Schneider on 11-11-2024 Lymphocytes Auto (Unsp spec) [#/Vol] 2.15 10*3/uL 0.83-4.51 [facility] Absolute neutrophil countOrd ered By: Harrison Schneider on 11-11-2024 Neutrophils (Bld) [#/Vol] 5.8 10*3/uL 2.0-7.7 [facility] Anion gap in Serum or Plasma Ordered By: Harrison Schneider on 11-11-2024 Anion gap [Moles/Vol] 11 mmol/L 5-15 [facility] Automated lymphocyte count a s percentage of total leukocytesOrdered By: Harrison Schneider on 11-11-2024 Lymphocytes/100 WBC Auto (Unsp spec) 24.0 % 19-41 [facility] BUN/creatinine ratioOrdered By: Harrison Schneider on 11-11-2024 Urea nitrogen/Creatinine [Mass ratio] 20.0 mg/mg 10-20 [facility] Basophil percentageOrdered B y: Harrison Schneider on 11-11-2024 Basophils/100 WBC (Bld) 0.6 % 0-1 [facility] Bilirubin, totalOrdered By: Harrison Schneider on 11-11-2024 Bilirubin [Mass/Vol] 0.36 mg/dL 0.00-1.30 [facility] CBC W/Diff, Automatedon Absolute Lymph 2.15 X10 3/uL Normal 0.83-4.51 [facility] Comment on above: Performed By: #### L 100.0100, L500.4050 #### [facility] [address] [place], [address] Absolute Neut 5.8 X10 3/uL Normal 2.0-7.7 [facility] Comment on above: Performed By: #### L 100.0100, L500.4050 #### [facility] [address] [place], [address] Basophils/100 WBC (Bld) 0.6 % Normal 0-1 [facility] Comment on above: Performed By: #### L 100.0100, L500.4050 #### [facility] [address] [place], [address] Eosinophils/100 WBC (Bld) 3.0 % Normal 0-5 [facility] Comment on above: Performed By: #### L 100.0100, L500.4050 #### [facility] [address] [place], [address] Erythrocyte distribution width (RBC) [Ratio] 15.0 % High 11.6-14.6 [facility] Comment on above: Performed By: #### L 100.0100, L500.4050 #### [facility] [address] [place], [address] Hematocrit (Bld) [Volume fraction] 40.9 % Normal 37-47 [facility] Comment on above: Performed By: #### L 100.0100, L500.4050 #### [facility] [address] [place], [address] Hemoglobin (Bld) [Mass/Vol] 13.8 g/dL Normal 12.0-15.0 [facility] Comment on above: Performed By: #### L 100.0100, L500.4050 #### [facility] [address] [place], [address] IG% 0.300 Normal 0.0-0.9 [facility] Comment on above: Result Comment: IG% - Immature Granulocytes (promyelocytes, myelocytes and metamyelocytes) > 1% indicates that a LEFT SHIFT is Present. Performed By: #### L 100.0100, L500.4050 #### [facility] [address] [place], [address] Lymphocytes/100 WBC (Bld) 24.0 % Normal 19-41 [facility] Comment on above: Performed By: #### L 100.0100, L500.4050 #### [facility] [address] [place], [address] MCH (RBC) [Entitic mass] 28.5 pg Normal 27.0-32.0 [facility] Comment on above: Performed By: #### L 100.0100, L500.4050 #### [facility] [address] [place], [address] MCHC (RBC) [Mass/Vol] 33.7 g/dL Normal 32-36 [facility] Comment on above: Performed By: #### L 100.0100, L500.4050 #### [facility] [address] [place], [address] MCV (RBC) [Entitic vol] 84.5 fL Normal 81-99 [facility] Comment on above: Performed By: #### L 100.0100, L500.4050 #### [facility] [address] [place], [address] Monocytes/100 WBC (Bld) 7.3 % Normal 0-10 [facility] Comment on above: Performed By: #### L 100.0100, L500.4050 #### [facility] [address] [place], [address] Neutrophils/100 WBC (Bld) 64.8 % Normal 47-70 [facility] Comment on above: Performed By: #### L 100.0100, L500.4050 #### [facility] [address] [place], [address] Nucleated RBC (Bld) [#/Vol] 0 10*3/uL Normal 0-5 [facility] Comment on above: Performed By: #### L 100.0100, L500.4050 #### [facility] [address] [place], [address] Platelet mean volume (Bld) [Entitic vol] 9.2 fL Normal 6.2-12.0 [facility] Comment on above: Performed By: #### L 100.0100, L500.4050 #### [facility] [address] [place], [address] Platelets (Bld) [#/Vol] 355 10*3/uL Normal 150-450 [facility] Comment on above: Performed By: #### L 100.0100, L500.4050 #### [facility] [address] [place], [address] RBC (Bld) [#/Vol] 4.84 10*6/uL Normal 4.2-5.4 [facility] Comment on above: Performed By: #### L 100.0100, L500.4050 #### [facility] [address] [place], [address] RDW SD 46.1 fl High 35.1-43.9 [facility] Comment on above: Performed By: #### L 100.0100, L500.4050 #### [facility] [address] [place], [address] WBC (Bld) [#/Vol] 9.0 10*3/uL Normal 4.4-11.0 [facility] Comment on above: Performed By: #### L 100.0100, L500.4050 #### [facility] [address] [place], [address] Carbon dioxide, total [Moles /volume] in Central venous bloodOrdered By: Harrison Schneider on 11-11-2024 CO2 [Moles/Vol] 23.4 mmol/L 21.0-32.0 [facility] Chloride assayOrdered By: Antonette Schneider on 11-11-2024 Chloride [Moles/Vol] 105 mmol/L 98-108 [facility] Comprehensive Metabolic Prof ilon 11-11-2024 Albumin [Mass/Vol] 4.2 g/dL Normal 3.4-4.8 [facility] Comment on above: Performed By: #### L 100.0100, L500.4050 #### [facility] [address] [place], [address] Albumin/Globulin [Mass ratio] 1.4 {ratio} Normal 0.9-2.4 [facility] Comment on above: Performed By: #### L 100.0100, L500.4050 #### [facility] [address] [place], [address] ALK PHOS 69 U/L Normal 35-104 [facility] Comment on above: Performed By: #### L 100.0100, L500.4050 #### [facility] [address] [place], [address] ALT [Catalytic activity/Vol] 13 U/L Normal <=34 [facility] Comment on above: Performed By: #### L 100.0100, L500.4050 #### [facility] [address] [place], [address] AST [Catalytic activity/Vol] 18 U/L Normal <=31 [facility] Comment on above: Performed By: #### L 100.0100, L500.4050 #### [facility] [address] [place], [address] Bilirubin [Mass/Vol] 0.36 mg/dL Normal 0.00-1.30 [facility] Comment on above: Performed By: #### L 100.0100, L500.4050 #### [facility] [address] [place], [address] BUN/CRE 20.0 RATIO Normal 10-20 [facility] Comment on above: Performed By: #### L 100.0100, L500.4050 #### [facility] [address] [place], [address] Calcium [Mass/Vol] 9.7 mg/dL Normal 7.6-11.0 [facility] Comment on above: Performed By: #### L 100.0100, L500.4050 #### [facility] [address] [place], [address] Chloride [Moles/Vol] 105 mmol/L Normal 98-108 [facility] Comment on above: Performed By: #### L 100.0100, L500.4050 #### [facility] [address] [place], [address] CO2 [Moles/Vol] 23.4 mmol/L Normal 21.0-32.0 [facility] Comment on above: Performed By: #### L 100.0100, L500.4050 #### [facility] [address] [place], [address] Creatinine [Mass/Vol] 1.02 mg/dL Normal 0.70-1.20 [facility] Comment on above: Performed By: #### L 100.0100, L500.4050 #### [facility] [address] [place], [address] ECRCL 56.44 ml/min Normal 50-250 [facility] Comment on above: Performed By: #### L 100.0100, L500.4050 #### [facility] [address] [place], [address] GAP 11 Normal 5-15 [facility] Comment on above: Performed By: #### L 100.0100, L500.4050 #### [facility] [address] [place], [address] GFR/1.73 sq M.predicted among non-blacks MDRD (S/P/Bld) [Vol rate/Area] 60 mL/min/{1.73_m2} Normal >60 [facility] Comment on above: Result Comment: mL/m in/1.73m2 CKD-EPI Creatinine Equation (2020) Performed By: #### L 100.0100, L500.4050 #### [facility] [address] [place], [address] Globulin (S) [Mass/Vol] 2.9 g/dL Normal 2.2-4.2 [facility] Comment on above: Performed By: #### L 100.0100, L500.4050 #### [facility] [address] [place], [address] Glucose [Mass/Vol] 94 mg/dL Normal 70-99 [facility] Comment on above: Performed By: #### L 100.0100, L500.4050 #### [facility] [address] [place], [address] Potassium [Moles/Vol] 4.0 mmol/L Normal 3.3-5.1 [facility] Comment on above: Performed By: #### L 100.0100, L500.4050 #### [facility] [address] [place], [address] Sodium [Moles/Vol] 139 mmol/L Normal 133-145 [facility] Comment on above: Performed By: #### L 100.0100, L500.4050 #### [facility] [address] [place], [address] T PROT 7.1 g/dL Normal 5.9-8.4 [facility] Comment on above: Performed By: #### L 100.0100, L500.4050 #### [facility] [address] [place], [address] Urea nitrogen [Mass/Vol] 20 mg/dL High 4-19 [facility] Comment on above: Performed By: #### L 100.0100, L500.4050 #### [facility] [address] [place], [address] Eosinophil percentageOrdered By: Harrison Schneider on 11-11-2024 Eosinophils/100 WBC (Bld) 3.0 % 0-5 [facility] Erythrocyte distribution wid th ratioOrdered By: Harrison Schneider on 11-11-2024 Erythrocyte distribution width (RBC) [Ratio] 15.0 % High 11.6-14.6 [facility] Erythrocyte distribution wid th standard deviationOrdered By: Harrison Schneider on 11-11-2024 Erythrocyte distribution width (RBC) [Ratio] 46.1 fl High 35.1-43.9 [facility] Glomerular filtration rate ( GFR) estimation/1.73 sq m using serum, plasma, or whole bOrdered By: Harrison Schneider on 11-11-2024 GFR/1.73 sq M.predicted among non-blacks MDRD (S/P/Bld) [Vol rate/Area] 60 mL/min/{1.73_m2} >60 [facility] Comment on above: mL/min/1.73m2 CKD-EP I Creatinine Equation (2020) Hematocrit Auto (Bld) [Volum e fraction]Ordered By: Harrison Schneider on 11-11-2024 Hematocrit (Bld) [Volume fraction] 40.9 % 37-47 [facility] Hemoglobin measurementOrdere d By: Harrison Schneider on 11-11-2024 Hemoglobin (Bld) [Mass/Vol] 13.8 g/dL 12.0-15.0 [facility] Immature granulocytes/100 WB C Auto (Bld)Ordered By: Harrison Schneider on 11-11-2024 Immature granulocytes/100 WBC (Bld) 0.300 % 0.0-0.9 [facility] Comment on above: IG% - Immature Granu locytes (promyelocytes, myelocytes and metamyelocytes) > 1% indicates that a LEFT SHIFT is Present. Laboratory - Chemistry and C hemistry - challengeOrdered By: Harrison Schneider on 11-11-2024 AST [Catalytic activity/Vol] 18 U/L <32 [facility] MCV (mean corpuscular volume ) determinationOrdered By: Harrison Schneider on 11-11-2024 MCV (RBC) [Entitic vol] 84.5 fL 81-99 [facility] Mean corpuscular hemoglobin (MCH) determinationOrdered By: Harrison Schneider on 11-11-2024 MCH (RBC) [Entitic mass] 28.5 pg 27.0-32.0 [facility] Mean corpuscular hemoglobin concentration (MCHC) determinationOrdered By: Harrison Schneider on 11-11-2024 MCHC (RBC) [Mass/Vol] 33.7 g/dL 32-36 [facility] Mean platelet volume determi nationOrdered By: Harrison Schneider on 11-11-2024 Platelet mean volume (Bld) [Entitic vol] 9.2 fL 6.2-12.0 [facility] Monocyte percentageOrdered B y: Harrison Schneider on 11-11-2024 Monocytes/100 WBC (Bld) 7.3 % 0-10 [facility] Neutrophil percentageOrdered By: [facility] Schneider on 11-11-2024 Neutrophils/100 WBC (Bld) 64.8 % 47-70 [facility] Nucleated red blood cell per centageOrdered By: Harrison Schneider on 11-11-2024 Nucleated RBC/100 WBC (Bld) [Ratio] 0 % 0-5 [facility] Oncology Visit Reporton Oncology Visit Report [facility] [place] [address] OFFICE VISIT Date of Service: 11/11/24 1135 MR#: [id number] Acct: [id number] Name: NORI RODRIGUEZ Rep #: [id number] : 1955 From: Harrison Schneider MD Age/Sex: 69/F [place] [facility] [place] Status: Signed HPI Subjective Date of Service [...] - ER: positive (100%, strong intensity). - DC: positive (75% invasive/100% in situ, variable intermediate-strong intensity). - EAD2LKC: equivocal (2+) - PON2AAOV: Not amplified (final) Note: IHC for Ecadherin, [...] FISH: NA Ki67: 40% Specimen in which ER/DC/HER2 performed: [id number] A pTNM: pT2 pN2a Additional findings: fibrocystic mastopathy [facility] Medical History (Updated 11/11/24 @ 12:56 by [...] diverticulitis Non-smoker (more content not included)... Normal [facility] Platelet countOrdered By: Antonette Schneider on 11-11-2024 Platelets (Bld) [#/Vol] 355 10*3/uL 150-450 [facility] Potassium measurement (mass/ volume)Ordered By: Harrison Schneider on 11-11-2024 Potassium (Unsp spec) [Mass/Vol] 4.0 mmol/L 3.3-5.1 [facility] RBC Auto (Bld) [#/Vol]Ordere d By: Harrison Schneider on 11-11-2024 RBC (Bld) [#/Vol] 4.84 10*6/uL 4.2-5.4 [facility] Serum creatinine measurement (mass/volume)Ordered By: Harrison Schneider on 11-11-2024 Creatinine [Mass/Vol] 1.02 mg/dL 0.70-1.20 [facility] Serum globulin measurementOr dered By: Harrison Schneider on 11-11-2024 Globulin (S) [Mass/Vol] 2.9 g/dL 2.2-4.2 [facility] Serum glucose measurement (m ass/volume)Ordered By: Harrison Schneider on 11-11-2024 Glucose [Mass/Vol] 94 mg/dL 70-99 [facility] Serum or plasma alanine aguirre otransferase (ALT) measurementOrdered By: Harrison Schneider on 11-11-2024 ALT [Catalytic activity/Vol] 13 U/L <35 [facility] Serum or plasma albumin cl urement (mass/volume)Ordered By: Harrison Schneider on 11-11-2024 Albumin [Mass/Vol] 4.2 g/dL 3.4-4.8 [facility] Serum or plasma albumin/glob ulin mass ratioOrdered By: Harrison Schneider on 11-11-2024 Albumin/Globulin [Mass ratio] 1.4 {ratio} 0.9-2.4 [facility] Serum or plasma alkaline mars sphatase measurementOrdered By: Harrison Schneider on 11-11-2024 ALP [Catalytic activity/Vol] 69 U/L 35-104 [facility] Serum or plasma calcium cl urement (mass/volume)Ordered By: Harrison Schneider on 11-11-2024 Calcium [Mass/Vol] 9.7 mg/dL 7.6-11.0 [facility] Serum or plasma urea nitroge n measurement (mass/volume)Ordered By: Harrison Schneider on 11-11-2024 Urea nitrogen [Mass/Vol] 20 mg/dL High 4-19 [facility] Sodium levelOrdered By: Hira Schneider on 11-11-2024 Sodium [Moles/Vol] 139 mmol/L 133-145 [facility] Total proteinOrdered By: Ousmane Schneider on 11-11-2024 Protein [Mass/Vol] 7.1 g/dL 5.9-8.4 [facility] White blood cell (WBC) count Ordered By: Harrison Schneider on 11-11-2024 WBC (Bld) [#/Vol] 9.0 10*3/uL 4.4-11.0 [facility] Surgery Visit Reporton 10-30 Surgery Visit Report [facility] [address] [place], [place] [address]patricia. [address] [place] [address] OFFICE VISIT Date of Service: 10/30/24 MR#: [id number] Acct: [id number] Name: NORI RODRIGUEZ Rep #: [id number] : 1955 Provider: Dr. Jeremiah almodovar MD Age/Sex: 69/F Location: [facility] Status: Signed Intake Vital Signs 10/07/24 10:26 [...] 10/30/24 H istory mcg (1,000 unit) capsule upxgyvrd-pjry-pivg 8 mg-folic 400 1 tab PO QDAY [...] phone but we are discussing this further [id number]-[id number]. Unfortunately she had 4 lymph nodes positive [...] No shortne (more content not included)... Normal [facility] Absolute lymphocyte countOrd ered By: Nellie Rome on 10-20-2024 Lymphocytes Auto (Unsp spec) [#/Vol] 2.14 10*3/uL 0.83-4.51 [facility] Absolute neutrophil countOrd ered By: Nellie Rome on 10-20-2024 Neutrophils (Bld) [#/Vol] 9.3 10*3/uL High 2.0-7.7 [facility] Anion gap in Serum or Plasma Ordered By: Nellie Rome on 10-20-2024 Anion gap [Moles/Vol] 12 mmol/L 5-15 [facility] Automated lymphocyte count a s percentage of total leukocytesOrdered By: Nellie Rome on 10-20-2024 Lymphocytes/100 WBC Auto (Unsp spec) 16.9 % Low 19-41 [facility] BUN/creatinine ratioOrdered By: Nellie Rome on 10-20-2024 Urea nitrogen/Creatinine [Mass ratio] 17.8 mg/mg 10-20 [facility] Basophil percentageOrdered B y: Nellie Rome on 10-20-2024 Basophils/100 WBC (Bld) 0.7 % 0-1 [facility] Bilirubin, totalOrdered By: Nellie Rome on 10-20-2024 Bilirubin [Mass/Vol] 0.46 mg/dL 0.00-1.30 [facility] CBC W/Diff, Automatedon 10-10 Absolute Lymph 2.14 X10 3/uL Normal 0.83-4.51 [facility] Comment on above: Performed By: #### L 100.0100, L500.4050 #### [facility] [place], [address] Absolute Neut 9.3 X10 3/uL High 2.0-7.7 [facility] Comment on above: Performed By: #### L 100.0100, L500.4050 #### [facility] [address] [place], [address] Basophils/100 WBC (Bld) 0.7 % Normal 0-1 [facility] Comment on above: Performed By: #### L 100.0100, L500.4050 #### [facility] [address] [place], [address] Eosinophils/100 WBC (Bld) 2.0 % Normal 0-5 [facility] Comment on above: Performed By: #### L 100.0100, L500.4050 #### [facility] [address] [place], [address] Erythrocyte distribution width (RBC) [Ratio] 13.8 % Normal 11.6-14.6 [facility] Comment on above: Performed By: #### L 100.0100, L500.4050 #### [facility] [address] [place], [address] Hematocrit (Bld) [Volume fraction] 40.5 % Normal 37-47 [facility] Comment on above: Performed By: #### L 100.0100, L500.4050 #### [facility] [address] [place], [address] Hemoglobin (Bld) [Mass/Vol] 14.1 g/dL Normal 12.0-15.0 [facility] Comment on above: Performed By: #### L 100.0100, L500.4050 #### [facility] [address] [place], [address] IG% 0.400 Normal 0.0-0.9 [facility] Comment on above: Result Comment: IG% - Immature Granulocytes (promyelocytes, myelocytes and metamyelocytes) > 1% indicates that a LEFT SHIFT is Present. Performed By: #### L 100.0100, L500.4050 #### [facility] [address] [place], [address] Lymphocytes/100 WBC (Bld) 16.9 % Low 19-41 [facility] Comment on above: Performed By: #### L 100.0100, L500.4050 #### [facility] [address] [place], [address] MCH (RBC) [Entitic mass] 28.3 pg Normal 27.0-32.0 [facility] Comment on above: Performed By: #### L 100.0100, L500.4050 #### [facility] [address] [place], [address] MCHC (RBC) [Mass/Vol] 34.8 g/dL Normal 32-36 [facility] Comment on above: Performed By: #### L 100.0100, L500.4050 #### [facility] [address] [place], [address] MCV (RBC) [Entitic vol] 81.2 fL Normal 81-99 [facility] Comment on above: Performed By: #### L 100.0100, L500.4050 #### [facility] [address] [place], [address] Monocytes/100 WBC (Bld) 6.6 % Normal 0-10 [facility] Comment on above: Performed By: #### L 100.0100, L500.4050 #### [facility] [address] [place], [address] Neutrophils/100 WBC (Bld) 73.4 % High 47-70 [facility] Comment on above: Performed By: #### L 100.0100, L500.4050 #### [facility] [address] [place], [address] Nucleated RBC (Bld) [#/Vol] 0 10*3/uL Normal 0-5 [facility] Comment on above: Performed By: #### L 100.0100, L500.4050 #### [facility] [address] [place], [address] Platelet mean volume (Bld) [Entitic vol] 9.5 fL Normal 6.2-12.0 [facility] Comment on above: Performed By: #### L 100.0100, L500.4050 #### [facility] [address] [place], [address] Platelets (Bld) [#/Vol] 374 10*3/uL Normal 150-450 [facility] Comment on above: Performed By: #### L 100.0100, L500.4050 #### [facility] [address] [place], [address] RBC (Bld) [#/Vol] 4.99 10*6/uL Normal 4.2-5.4 [facility] Comment on above: Performed By: #### L 100.0100, L500.4050 #### [facility] [address] [place], [address] RDW SD 40.5 fl Normal 35.1-43.9 [facility] Comment on above: Performed By: #### L 100.0100, L500.4050 #### [facility] [address] [place], [address] WBC (Bld) [#/Vol] 12.6 10*3/uL High 4.4-11.0 [facility] Comment on above: Performed By: #### L 100.0100, L500.4050 #### [facility] [address] [place], [address] Carbon dioxide, total [Moles /volume] in Central venous bloodOrdered By: Nellie Rome on 10-20-2024 CO2 [Moles/Vol] 24.4 mmol/L 21.0-32.0 [facility] Chloride assayOrdered By: Dieter Rome on 10-20-2024 Chloride [Moles/Vol] 93 mmol/L Low 98-108 [facility] Comprehensive Metabolic Prof ilon 10-20-2024 Albumin [Mass/Vol] 4.1 g/dL Normal 3.4-4.8 [facility] Comment on above: Performed By: #### L 100.0100, L500.4050 #### [facility] [address] [place], [address] Albumin/Globulin [Mass ratio] 1.6 {ratio} Normal 0.9-2.4 [facility] Comment on above: Performed By: #### L 100.0100, L500.4050 #### [facility] [address] [place], [address] ALK PHOS 61 U/L Normal 35-104 [facility] Comment on above: Performed By: #### L 100.0100, L500.4050 #### [facility] [address] [place], [address] ALT [Catalytic activity/Vol] 14 U/L Normal <=34 [facility] Comment on above: Performed By: #### L 100.0100, L500.4050 #### [facility] [address] [place], [address] AST [Catalytic activity/Vol] 18 U/L Normal <=31 [facility] Comment on above: Performed By: #### L 100.0100, L500.4050 #### [facility] [address] [place], [address] Bilirubin [Mass/Vol] 0.46 mg/dL Normal 0.00-1.30 [facility] Comment on above: Performed By: #### L 100.0100, L500.4050 #### [facility] [address] [place], [address] BUN/CRE 17.8 RATIO Normal 10-20 [facility] Comment on above: Performed By: #### L 100.0100, L500.4050 #### [facility] [address] [place], [address] Calcium [Mass/Vol] 9.3 mg/dL Normal 7.6-11.0 [facility] Comment on above: Performed By: #### L 100.0100, L500.4050 #### [facility] [address] [place], [address] Chloride [Moles/Vol] 93 mmol/L Low 98-108 [facility] Comment on above: Performed By: #### L 100.0100, L500.4050 #### [facility] [address] [place], [address] CO2 [Moles/Vol] 24.4 mmol/L Normal 21.0-32.0 [facility] Comment on above: Performed By: #### L 100.0100, L500.4050 #### [facility] [address] [place], [address] Creatinine [Mass/Vol] 0.91 mg/dL Normal 0.70-1.20 [facility] Comment on above: Performed By: #### L 100.0100, L500.4050 #### [facility] [address] [place], [address] GAP 12 Normal 5-15 [facility] Comment on above: Performed By: #### L 100.0100, L500.4050 #### [facility] [address] [place], [address] GFR/1.73 sq M.predicted among non-blacks MDRD (S/P/Bld) [Vol rate/Area] 68 mL/min/{1.73_m2} Normal >60 [facility] Comment on above: Result Comment: mL/m in/1.73m2 CKD-EPI Creatinine Equation (2020) Performed By: #### L 100.0100, L500.4050 #### [facility] [address] [place], [address] Globulin (S) [Mass/Vol] 2.6 g/dL Normal 2.2-4.2 [facility] Comment on above: Performed By: #### L 100.0100, L500.4050 #### [facility] [address] [place], [address] Glucose [Mass/Vol] 118 mg/dL High 70-99 [facility] Comment on above: Performed By: #### L 100.0100, L500.4050 #### [facility] [address] [place], [address] Potassium [Moles/Vol] 3.7 mmol/L Normal 3.3-5.1 [facility] Comment on above: Performed By: #### L 100.0100, L500.4050 #### [facility] [address] [place], [address] Sodium [Moles/Vol] 129 mmol/L Low 133-145 [facility] Comment on above: Performed By: #### L 100.0100, L500.4050 #### [facility] [address] [place], [address] T PROT 6.6 g/dL Normal 5.9-8.4 [facility] Comment on above: Performed By: #### L 100.0100, L500.4050 #### [facility] [address] [place], [address] Urea nitrogen [Mass/Vol] 16 mg/dL Normal 4-19 [facility] Comment on above: Performed By: #### L 100.0100, L500.4050 #### [facility] [place], [address] Eosinophil percentageOrdered By: Nellie Rome on 10-20-2024 Eosinophils/100 WBC (Bld) 2.0 % 0-5 [facility] Erythrocyte distribution wid th ratioOrdered By: Nellie Rome on 10-20-2024 Erythrocyte distribution width (RBC) [Ratio] 13.8 % 11.6-14.6 [facility] Erythrocyte distribution wid th standard deviationOrdered By: Nellie Rome on 10-20-2024 Erythrocyte distribution width (RBC) [Ratio] 40.5 fl 35.1-43.9 [facility] Glomerular filtration rate ( GFR) estimation/1.73 sq m using serum, plasma, or whole bOrdered By: Nellie Rome on 10-20-2024 GFR/1.73 sq M.predicted among non-blacks MDRD (S/P/Bld) [Vol rate/Area] 68 mL/min/{1.73_m2} >60 [facility] Comment on above: mL/min/1.73m2 CKD-EP I Creatinine Equation (2020) Hematocrit Auto (Bld) [Volum e fraction]Ordered By: Nellie Rome on 10-20-2024 Hematocrit (Bld) [Volume fraction] 40.5 % 37-47 [facility] Hemoglobin measurementOrdere d By: Nellie Rome on 10-20-2024 Hemoglobin (Bld) [Mass/Vol] 14.1 g/dL 12.0-15.0 [facility] Immature granulocytes/100 WB C Auto (Bld)Ordered By: Nellie Rome on 10-20-2024 Immature granulocytes/100 WBC (Bld) 0.400 % 0.0-0.9 [facility] Comment on above: IG% - Immature Granu locytes (promyelocytes, myelocytes and metamyelocytes) > 1% indicates that a LEFT SHIFT is Present. Laboratory - Chemistry and C hemistry - challengeOrdered By: Nellie Rome on 10-20-2024 AST [Catalytic activity/Vol] 18 U/L <32 [facility] MCV (mean corpuscular volume ) determinationOrdered By: Nellie Rome on 10-20-2024 MCV (RBC) [Entitic vol] 81.2 fL 81-99 [facility] Mean corpuscular hemoglobin (MCH) determinationOrdered By: Nellie Rome on 10-20-2024 MCH (RBC) [Entitic mass] 28.3 pg 27.0-32.0 [facility] Mean corpuscular hemoglobin concentration (MCHC) determinationOrdered By: Nellie Rome on 10-20-2024 MCHC (RBC) [Mass/Vol] 34.8 g/dL 32-36 [facility] Mean platelet volume determi nationOrdered By: Nellie Rome on 10-20-2024 Platelet mean volume (Bld) [Entitic vol] 9.5 fL 6.2-12.0 [facility] Monocyte percentageOrdered B y: Nellie Rome on 10-20-2024 Monocytes/100 WBC (Bld) 6.6 % 0-10 [facility] Neutrophil percentageOrdered By: Nellie Rome on 10-20-2024 Neutrophils/100 WBC (Bld) 73.4 % High 47-70 [facility] Nucleated red blood cell per centageOrdered By: Nellie Rome on 10-20-2024 Nucleated RBC/100 WBC (Bld) [Ratio] 0 % 0-5 [facility] Platelet countOrdered By: Dieter Rome on 10-20-2024 Platelets (Bld) [#/Vol] 374 10*3/uL 150-450 [facility] Potassium measurement (mass/ volume)Ordered By: Nellie Rome on 10-20-2024 Potassium (Unsp spec) [Mass/Vol] 3.7 mmol/L 3.3-5.1 [facility] RBC Auto (Bld) [#/Vol]Ordere d By: Nellie Rome on 10-20-2024 RBC (Bld) [#/Vol] 4.99 10*6/uL 4.2-5.4 [facility] Serum creatinine measurement (mass/volume)Ordered By: Nellie Rome on 10-20-2024 Creatinine [Mass/Vol] 0.91 mg/dL 0.70-1.20 [facility] Serum globulin measurementOr dered By: Nellie Rome on 10-20-2024 Globulin (S) [Mass/Vol] 2.6 g/dL 2.2-4.2 [facility] Serum glucose measurement (m ass/volume)Ordered By: Nellie Rome on 10-20-2024 Glucose [Mass/Vol] 118 mg/dL High 70-99 [facility] Serum or plasma alanine aguirre otransferase (ALT) measurementOrdered By: Nellie Rome on 10-20-2024 ALT [Catalytic activity/Vol] 14 U/L <35 [facility] Serum or plasma albumin cl urement (mass/volume)Ordered By: Nellie Rome on 10-20-2024 Albumin [Mass/Vol] 4.1 g/dL 3.4-4.8 [facility] Serum or plasma albumin/glob ulin mass ratioOrdered By: Nellie Rome on 10-20-2024 Albumin/Globulin [Mass ratio] 1.6 {ratio} 0.9-2.4 [facility] Serum or plasma alkaline mars sphatase measurementOrdered By: Nellie Rome on 10-20-2024 ALP [Catalytic activity/Vol] 61 U/L 35-104 [facility] Serum or plasma calcium cl urement (mass/volume)Ordered By: Nellie Rome on 10-20-2024 Calcium [Mass/Vol] 9.3 mg/dL 7.6-11.0 [facility] Serum or plasma urea nitroge n measurement (mass/volume)Ordered By: Nellie Rome on 10-20-2024 Urea nitrogen [Mass/Vol] 16 mg/dL 4-19 [facility] Sodium levelOrdered By: Mandy Rome on 10-20-2024 Sodium [Moles/Vol] 129 mmol/L Low 133-145 [facility] Total proteinOrdered By: Vernon Rome on 10-20-2024 Protein [Mass/Vol] 6.6 g/dL 5.9-8.4 [facility] White blood cell (WBC) count Ordered By: Nellie Rome on 10-20-2024 WBC (Bld) [#/Vol] 12.6 10*3/uL High 4.4-11.0 [facility] Surgery Visit Reporton 10-14 Surgery Visit Report [facility] [address] [place] [address] OFFICE VISIT Date of Service: 10/14/24 MR#: [id number] Acct: [id number] Name: NORI RODRIGUEZ Rep #: [id number] : 1955 Provider: Dr. Jeremiah almodovar MD Age/Sex: 69/F Location: [facility] Status: Signed Intake Vital Signs 10/07/24 10:26 [...] 10/14/24 H istory mcg (1,000 unit) capsule hslhfkka-srmc-wcng 8 mg-folic 400 1 tab PO QDAY [...] Op Diagnoses S/P lumpectomy, right breast Z98.890 [facility] Medical History (Updated 10/14/24 @ 14:38 by [...] We did (more content not included)... Normal [facility] Breast Biopsy Specimenon Breast Biopsy Specimen [facility] Imaging Services [address], [place] [address] Breast Biopsy Specimen MR#: [id number] Acct: [id number] Name: NORI RODRIGUEZ Rep #: [id number] : 1955 F 69 From: Mt wade MD PCP: Dr. Nellie Rome MD Status: [facility] Study: Breast Biopsy Specimen Date of Exam: 10/07/24 Exam# [id number] Ordering Dr: Jeremiah Franco MD EXAM: BREAST [...] be mailed to the patient. Reading Location: [facility] CC: Dr. Nellie Rome MD; Dr. Jeremiah Franco MD Parts Room Clerk: Signed Normal [facility] Breast imaging reportOrdered By: Mt Perdomo on 10-07-2024 Study report [facility] [address] [place] [address] Breast Biopsy Specimen MR#: [id number] Acct: [id number] Name: NORI RODRIGUEZ Rep #: [id number] : 1955 F 69 From: Uri Perdomo MD PCP: Dr. Nellie Rome MD Status: [facility] Study:Breast Biopsy Specimen Date of Exam: 10/07/24 Exam# [id number] Ordering Dr: [facility] Franco MD EXAM: [...] be mailed to the patient. Reading Location: [facility] CC: Dr. Nellie Rome MD; Dr. Jeremiah Franco MD ~ Parts Room Clerk: Signed [facility] Discharge Instructionon 09-10 Discharge Instruction [facility] Medical Records Department [address] [facility] [address] Instructions for Home/Discharge Instructions 10/07/24 1537 MR#: [id number] Acct: [id number] Name: TARA RODRIGUEZAMADOR DIASDELFINA Rep #: [id number] : 1955 69 From: Jeremiah Franco MD PCP: Dr. Nellie Rome MD Status:REG [facility] Discharge Instructions Diet Discharge Diet: Light diet [...] Care Provider: Nellie Rome Instructions Print Language: [place] Discharge Orders/Prescriptions Prescriptions: New oxycodone 5 mg [...] can be placed): Home, Self Care 10/07/24 1550 Jeremiah Franco MD CC: Dr. Nellie Rome MD Signed Normal [facility] Frozen Section (charge)on Frozen Section (charge) Patient Age/Sex Location Account Attending Physician NORI RODRIGUEZ 69/F [facility] [id number] Dr. Jeremiah Franco MD Specimen: [id number] Received: 10/07/24 Status: [facility] Ward Num: [id number] Spec Type: BREAST BX Subm Dr: Dr. [...] excision: - Positive for macrometastasis, 12 mm (/). C. Axilla, right, contents, excision: - Three [...] Location Account Attending Physician NORI RODRIGUEZ 69/F [facility] [id number] Dr. Jeremiah Franco MD Lymphovascular invasion (E=extensive, F=focal, N=not [...] HER2 FISH:???NA Ki67: 40% Specimen in which ER/DC/HER2 performed:???[id number] A pTNM:???pT2 pN2a Additional findings:???fibrocystic mastopathy Comment:???A radiograph of the breast specimen was performed to assist in the sectioning of the specimen and the image was reviewed and correlated with the histological findings. ??? The above synoptic report complies, in slightly ashli (more content not included)... Normal [facility] Comment on above: Performed By: #### P FSC ####[facility] [address] [place], [address] Lymph Node Injection Onlyon 10-07-2024 Lymph Node Injection Only [facility] Imaging Services [address] [place], [place] [address] Lymph Node Injection Only MR#: [id number] Acct: [id number] Name: NORI RODRIGUEZ Rep #: [id number] : 1955 F 69 From: Mt wade MD PCP: Dr. Nellie Rome MD Status: [facility] Study: Lymph Node Injection Only Date of Exam: Exam# [id number] Ordering Dr: Jeremiah Franco MD PROCEDURE: LYMPH [...] nipple for sentinel node imaging. Reading Location: [facility] CC: Dr. Nellie Rome MD; Dr. Jeremiah Franco MD Parts Room Clerk: Signed [facility] MR/[facility]OP[facility] 10-07-2024 MR/POSTOP.[facility] Medical Records Department [address] [place] [address] Anesthesia Postop Eval I 10/07/24 1553 MR#: [id number] Acct: [id number] Name: NORI RODRIGUEZ Rep #: [id number] : 1955 69 From: Mike Walton CRNA PCP: Dr. Nellie Rome MD Status:[facility] Y Race: C Location: [place] [address] Anesthesia: Postop Eval I Current Vital Signs [...] completed: Yes 10/07/24 1554 Date Mike Walton JOSE Faith Signature: Date CC: Signed Normal [facility] MR/IRNGHFFC4ro 10-07-2024 MR/POSTOPAN2 [facility] Medical Records Department [address] [place] [address] Anesthesia Postop Eval II 10/07/242026 MR#: [id number] Acct: [id number] Name: NORI RODRIGUEZ Rep #: [id number] : 1955 69 From: Keaton Murphy MD PCP: Dr. Nellie Rome MD Status:[facility] Y Race: C Location: [facility] Anesthesia Postop Eval I Sum Postop Eval Completion status Anesthesia document: Postop Eval 1 completed: Yes Anesthesia Postop Eval I Summary Anesthesia Postop Eval I Summary: Anesthesia Postop Eval I: Assessment Summary Airway patent Yes 10/07/24 15:54 FITTER [email or web address] Spontaneous unlabored Yes 10/07/24 15:54 FITTER [email or web address] respirations Mental status Awake,Calm 10/07/24 15:54 FITTER [email or web address] nausea No 10/07/24 15:54 FITTER [email or web address].PKEL Vomiting No 10/07/24 15:54 FITTER [email or web address].PKEL Anesthesia Postop Eval I: Fluid Summary Crystalloid volume administer 1,600 10/07/24 15:54 FITTER [email or web address].PKEL (ml) Colloids volume administered ( ml) Blood Product volume administered (ml) Total IV fluid infused 1,600 10/07/24 15:54 FITTER [email or web address] Anesthesia Postop Eval I: Summary Notes Anesthesia Complication No 10/07/24 15:54 FITTER [email or web address] Anesthesia Complication Comment: Post-operative progress note Anesthesia: Postop Eval II Evaluation Mental status: Awake and Calm Pain Level: 2 nausea: No Vomiting: No Complications Anesthesia Complication: No 10/07/242026 Date Keaton Faith Signature: Date CC: Signed Normal [facility] Operative Reporton 5 Operative Report [facility] Medical Records Department [address] [place] [address] Operative Report 10/07/241936 MR#: [id number] Acct: [id number] Name: NORI RODRIGUEZ Rep #: [id number] : 1955 69 From: Jeremiah Franco MD PCP: Dr. Nellie Rome MD Status:[facility] Location: [facility] Oncology: [place] Requirements . Oncology surgical intervention [...] nerves; Level III nodes were removed. Yes [place] Node Biopsy for Breast Cancer performed [place] Node Bx - Breast Cancer: Synoptic Portion: [...] Multi Select Codes Integumentary Integumentary CPT Codes: 68916 Partial mastectomy Respiratory/Cardiovascular Resp/Cardiovascular CPT Codes: 68977 Biopsy/removal lymph nodes Operative Report (Standard) Operative Information Date of Procedure: 10/07/24 Pre-Operative Diagnosis: Right breast invasive ductal cancer Post-Operative Diagnosis: Same Surgery/Procedure Performed: 1. Wire localized right breast lumpectomy 2. Right axillary sentinel lymph node biopsy 3. Right axillary node dissection user experience manager: Yes Hollow Ware Maker: Deepak Tran Tasks completed by first beater: Closing and Retracting Additional recreational assistant?: No Type of Anesthesia: General RN [...] for margins (more content not included)... Normal [facility] Operative Report [facility] Medical Records Department [address] [place] [address] Operative Report 10/07/241923 MR#: [id number] Acct: [id number] Name: NORI RODRIGUEZ Rep #: [id number] : 1955 69 From: Jeremiah Franco MD PCP: Dr. Nellie Rome MD Status:[facility] Location: [facility] Problems Associated Problem List Diagnoses (1) Invasive ductal carcinoma of breast: Procedures Integumentary 16xxx-[id number]: 40735 Perq dev breast 1st [facility] Operative Report (Standard) Operative Information Date of Procedure: 10/07/24 Pre-Operative Diagnosis: Right breast invasive ductal carcinoma Post-Operative Diagnosis: Same Surgery/Procedure Performed: Right breast stereotactic needle localization user experience manager: No Type of Anesthesia: Local RN Documented [...] Rome MD; Dr. Jeremiah Franco MD Signed [facility] MR/PAT.[facility]anda 10-02-2024 MR/PAT.[facility] Medical Records Department [address] [place] [address] PAT - Anesthesia 10/02/24 1418 MR#: [id number] Acct: [id number] Name: MICHAELNORIAMADOR MATHIS Rep #: [id number] : 1955 69 From: Pardeep Shannon MD PCP: Dr. Nellie Rome MD Status:PRE [facility] Y Race: C Location: [facility] Pre-Assessment Diagnosis/Proposed Procedure Planned Operative Procedure(s): RIGHT BREAST STEROWIRE LOCALIZED LUMPECTOMY WITH SENTIEL LYMPH NODE BIOPSY, POSSIBLE NODE DISECTION Anesthesia History Anesthesia History - quality system manager: Anesthesia History - quality system manager Hx Hospitalization No 10/02/24 09:28 Any Problems [...] take am of surgery PONV PONV - quality system manager: PONV - quality system manager Female Yes 10/02/24 09:28 HX of Motion [...] 09/26/24 13:25 Respiratory Assessment Respiratory Assessment - quality system manager: Respiratory Tract Infection Hx - quality system manager Hx Respiratory Tract Infection No 10/02/24 09:28 STOP Sleep Apnea STOP Sleep Apnea - quality system manager: STOP Sleep Apnea - quality system manager Hx Hypertension Yes: CONTROLLED WITH MEDS 10/02/24 [...] Tobacco Use History Tobacco Use History - quality system manager: Tobacco Use History - quality system manager Tobacco Use Smoking Status Never smoker 10/02/24 09:28 Hx Tobacco Use No 10/02/24 09:28 Years Smoking Packs Smoked per Day Smoking Cessation Date was within the last 15 years Hx Smoking Cessation Date Hx Smoking Cessation Counseling Hematologic Medial History Hematologic Hx - quality system manager: 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 Normal [facility] Surgery Visit Reporton 10-01 Surgery Visit Report [facility] [address] [place] [address] OFFICE VISIT Date of Service: 10/01/24 MR#: [id number] Acct: [id number] Name: NORI RODRIGUEZ Rep #: [id number] : 1955 Provider: Dr. Jeremiah almodovar MD Age/Sex: 69/F Location: [facility] Status: Signed Intake Vital Signs 09/26/24 13:25 [...] 10/01/24 H istory mcg (1,000 unit) capsule znsexbuz-vgoh-tohp 8 mg-folic 400 1 tab PO QDAY [...] No abnorma (more content not included)... Normal [facility] Surgery Visit Reporton 09-26 Surgery Visit Report [facility] [address] [place] [address] OFFICE VISIT Date of Service: 09/26/24 MR#: [id number] Acct: [id number] Name: MICHAELNORI MATHIS Rep #: [id number] : 1955 Provider: Dr. Jeremiah almodovar MD Age/Sex: 69/F Location: [facility] Status: Signed Intake Vital Signs 09/15/24 12:45 [...] 09/26/24 H istory mcg (1,000 unit) capsule eyjzulqd-wfoc-hdoj 8 mg-folic 400 1 tab PO QDAY [...] positive for invasive breast cancer. This was ER/DC positive. I did call her with results [...] No anemi (more content not included)... Normal [facility] SURG PATH REQUESTon 09-23-19 Case Report Normal [facility] Comment on above: Result Comment: Surg ical Pathology Report Case: [id number] Authorizing Provider: Shayla Lobo MD Collected: 09/22/2024 02:51 PM Ordering Location: [facility] Received: 09/22/2024 02:46 PM [place] Pathologist: Jessee Mac MD, PhD Specimen: SURG PATH, [place] [id number]; A) Breast, right, mass, biopsy; Molecular testing Performed By: #### S URGP #### [facility] (DEFAULT) [address] [place] [address] Clinical History Normal [facility] Comment on above: Result Comment: Rece ived is a request from Dr. Shayla Lobo at [facility] for molecular testing on case [id number]. Performed By: #### S URGP #### [facility] (DEFAULT) [address] [address] Gross Description [facility] Comment on above: Result Comment: The following material(s) are received from [facility], [address] [place] [id number], with an identifying Surgical Pathology Report: 1 H&E, 1 non-H&E (HER2) and 2 unstained (A1) slides labeled [id number], which are submitted to [facility] Histology/[facility] for HER2 FISH testing. Outside materials are returned in 60 days under separate cover with our number recorded on them. Grosser for this case was: Cortney Patten Performed By: #### S URGP #### [facility] (DEFAULT) [address] [address] Microscopic Description Tissue was assessed by a molecular pathologist to select areas for analysis and to correlate immunostaining with histology. No morphologic assessment was requested. [facility] Comment on above: Performed By: #### S URGP #### [facility] (DEFAULT) [address] [address] Pathologic Diagnosis [facility] Comment on above: Result Comment: Outs carmine Slides [id number] (09/15/24) A. Breast, right, mass, biopsy: HER2 FISH: Not amplified at 1222 EDT Performed By: #### S URGP #### [facility] (DEFAULT) [address] [address] Professional Interpretation Performed at: [facility] Comment on above: Result Comment: [facility] For Immediate Release to [facility] Yes [address] [address] Performed By: #### S URGP #### [facility] (DEFAULT) [address] [address] Surgical pathology reportOrd ered By: Shayla Lobo on 09-18-2024 Surgical pathology study [facility] Immunohistochemical Stainson 09-15-2024 Immunohistochemical Stains Patient Age/Sex Location Account Attending Physician NORI RORDIGUEZ 69/F LABSPEC [id number] Dr. Jeremiah Franco MD Specimen: [id number] Received: 09/15/24 Status: COLLEEN Ward Num: [id number] Spec Type: BREAST BX Subm Dr: Dr. [...] - ER: positive (100%, strong intensity). - DC: positive (75% invasive/100% in situ, variable intermediate-strong intensity). - [id number]: equivocal (2+) - [id number]: pending Note: IHC for Ecadherin, CK5/6, and [...] in diameter. Entirely submitted in 1 cassette. [place] 09/15/2024 CPT:63264e6,26238,79558s1,8 8360x3 Patient Age/Sex Location Account Attending Physician NORI RODRIGUEZ 69/F LABSPEC [id number] Dr. Jeremiah Franco MD ADDENDUM Addendum 1 Entered: 09/29/24-1012 This addendum is added to incorporate an outside pathology consultation report. The case was examined at [facility] by Dr. Mac (#[id number]) and the following diagnosis was rendered. A. Breast, right, mass, biopsy: HER2 FISH: Not amplified. HER2 SCORE REPORT: HER2 SCORE: NEGATIVE HER2 / CEP17 RATIO: 1.4 HER2 COPY NUMBER / CELL: 4.4 Please see complete above mentioned consultation report in EMR Addendum Signed (signature on file) Dr. Shayla Lobo MD 09/29/24 1217 Patient Age/Sex Location Account Attending Physician NORI RODRIGUEZ 69/F LABSPEC [id number] Dr. Jeremiah Franco MD Signed (signature on file) Dr. Shayla Lobo MD 09/18/24 1556 Normal [facility] Comment on above: Performed By: #### P MAXIMUS #### [facility] [address] [place], [address] Surgery Visit Reporton 09-15 Surgery Visit Report [facility] [address] [place] [address] OFFICE VISIT Date of Service: 09/15/24 MR#: [id number] Acct: [id number] Name: NORI RODRIGUEZ Rep #: [id number] : 1955 Provider: Dr. Jeremiah almodovar MD Age/Sex: 69/F Location: [facility] Status: Signed Intake Vital Signs 05/28/24 08:06 [...] Other: Examina (more content not included)... Normal [facility] Breast Complete Unilateralon 08-29-2024 Breast Complete Unilateral [facility] [address] [place] [address] Breast Complete Unilateral MR#: [id number] Acct: [id number] Name: NORI RODRIGUEZ Rep #: [id number] : 1955 F 69 From: Bre Thorne MD PCP: Dr. Nellie Rome MD Status: REG CLI Study: Breast Complete Unilateral Date of Exam: 08/29 Exam# [id number] Ordering Dr: Nellie Rome MD PROCEDURE: BREAST [...] 5: HIGHLY SUGGESTIVE OF MALIGNANCY Reading Location: [id number] CC: Dr. Nellie Rome MD Parts Room Clerk: Signed Normal [facility] Breast imaging reportOrdered By: Mt Perdomo on 08-25-2024 Study report [facility] [address] [place], [place] [address] SCRN MAMM (CAD)W/URI BILAT MR#: [id number] Acct: [id number] Name: NORI RODRIGUEZ Rep #: [id number] : 1955 F 69 From: Uri Perdomo MD PCP: Dr. Nellie Rome MD Status: REG CLI Study:SCRN MAMM (CAD)W/URI BILAT Date of Exa m: 08/25/24 Exam# [id number] Ordering Dr: Caty Rome MD EXAM: SCRN [...] be mailed to the patient. Reading Location: [facility] CC: Dr. Nellie Rome MD ~ Parts Room Clerk: Signed [facility] SCRN MAMM (CAD)W/URI BILATo n 08-25-2024 SCRN MAMM (CAD)W/URI BILAT [facility] [address] [place], [place] [address] SCRN MAMM (CAD)W/URI BILAT MR#: [id number] Acct: [id number] Name: NORI RODRIGUEZ Rep #: [id number] : 1955 F 69 From: Mt wade MD PCP: Dr. Nellie Rome MD Status: REG [facility] Study: SCRN MAMM (CAD)W/URI BILAT Date of Exam: 08/10 09/03 Exam# [id number] Ordering Dr: Nellie Rome MD EXAM: SCRN [...] be mailed to the patient. Reading [facility] CC: Dr. Nellie Rome MD Parts Room Clerk: Signed Normal [facility] Abdomen/Pelvis WITH Contrast on 06-23-2024 Abdomen/Pelvis WITH Contrast [facility] [address] [place] [address] Abdomen/Pelvis WITH Contrast MR#: [id number] Acct: [id number] Name: NORI RODRIGUEZ Rep #: [id number] : 1955 F 69 From: Mt wade MD PCP: Dr. Nellie Rome MD Status: REG CLI Study: Abdomen/Pelvis WITH Contrast Date of Exam: Exam# [id number] Ordering Dr: Oswaldo Jones MD PROCEDURE: ABDOMEN/PELVIS [...] No acute abnormality is seen. Reading Location: [place] [address] CC: Dr. Nellie Rome MD; Dr. Oswaldo Jones MD Parts Room Clerk: Signed Normal [facility] CREATININE FINGERSTICKon Creatinine [Mass/Vol] 1.1 mg/dL High 0.55-1.02 [facility] Comment on above: Performed By: #### L 9100.0200 ####[facility] [address] [place], [place], [id number] GFR/1.73 sq M.predicted among non-blacks MDRD (S/P/Bld) [Vol rate/Area] 55.0000 mL/min/{1.73_m2} Low >60 [facility] Comment on above: Performed By: #### L 9100.0200 ####[facility] [address] [place], [place], [address] Creatinine measurement at be dsideOrdered By: Oswaldo Jones on 06-23-2024 Creatinine [Mass/Vol] 1.1 mg/dL High 0.55-1.02 [facility] EGFROrdered By: Oswaldo Jones on 06-23-2024 GFR/1.73 sq M.predicted among non-blacks MDRD (S/P/Bld) [Vol rate/Area] 55.0000 mL/min/{1.73_m2} Low >60 [facility] Pulmonary Visit Reporton Pulmonary Visit Report [facility] [place] [address] [place], [place] [address] OFFICE VISIT Date of Service: 05/28/24 MR#: [id number] Acct: [id number] Name: NORI RODRIGUEZ Rep #: [id number] : 1955 Provider: VINI Clemons Age/Sex: 68/F Location: [facility] Status: Signed Assessment and Plan Assessment and [...] Lap Mook 10/12, radu REVIEW COMPLIANCE REPORT Ornament Stitcher Required: No DME Vendor: Eliezer Accompanied by: [...] the past year?: No PFSH Medical History (Reviewed 05/28/24 @ 11:02 by Rani Clemons [employer]CH[employer], AUTOMATIC PINSETTER MECHANIC-C) Mass Cancer Anemia Syncope Stool color black Stool bloody Gastric reflux Chest pain Abdominal pain Diverticulitis Wears glasses Anxiety Thyroid disease Arthritis History of renal disease Back pain History of diverticulitis Non-smoker CPAP (continuous positive airway pressure) dependence Shortness of breath on exertion History of pain when walking Nodular thyroid disease Hemorrhoids Sleep apnea Hypertension Surgical History (Reviewed 05/28/24 @ 11:02 by Rain Clemons [employer]TER MECH[employer]IC, AUTOMATIC PINSETTER MECHANIC-C) History of cholecystectomy History of colectomy History of esophagogastroduodenoscopy (EGD) History of nephrectomy, right Hx of colonoscopy S/P thyroid biopsy history excision right breast lump Family History (Reviewed 05/28/24 @ 11:02 by Rani Clemons [employer]OM[employer] PINSETTER MECHANIC, AUTOMATIC PINSETTER MECHANIC-C) Mother Colon cancer Hypertension Father Diabetes Social History household members: spouse housing: house Smoking Status: Never smoker alcohol intake: nev (more content not included)... Normal [facility] High density lipoprotein (HD L) measurementOrdered By: Nellie Rome on 03-07-2024 Cholesterol in HDL [Mass/Vol] 64 mg/dL >40 [facility] Comment on above: The drugs N-Acetylcy steine and Metamizole may falsely depress this assay. Reference Range HDL <40 mg/dL Low HDL Cholesterol HDL >or= 60 mg/dL High HDL Cholesterol Lipid Profileon 03-07-2024 Cholesterol [Mass/Vol] 202 mg/dL High 200 [facility] Comment on above: Result Comment: <200 mg/dL Desirable 200-240 mg/dL Borderline >240 mg/dL High Risk Performed By: #### L 500.4100 ####[facility] [address] [place], [address] Cholesterol in HDL [Mass/Vol] 64 mg/dL Normal [facility] Comment on above: Result Comment: The drugs N-Acetylcysteine and Metamizole may falsely depress this assay. Reference Range HDL <40 mg/dL Low HDL Cholesterol HDL >or= 60 mg/dL High HDL Cholesterol Performed By: #### L 500.4100 ####[facility] [address] [place], [address] Cholesterol in LDL [Mass/Vol] 105 mg/dL Normal 0-130 [facility] Comment on above: Performed By: #### L 500.4100 ####[facility] [address] [place], [address] Cholesterol in VLDL [Mass/Vol] 33 mg/dL Normal 5-40 [facility] Comment on above: Performed By: #### L 500.4100 ####[facility] [address] [place], [address] Triglyceride [Mass/Vol] 165 mg/dL Normal [facility] Comment on above: Result Comment: The drugs N-Acetylcysteine and Metamizole may falsely depress this assay. Serum Triglycerides Reference Interval Normal <150 mg/dL Borderline high 150 - 199 mg/dL High 200 - 499 mg/dL Very High > or = 500 mg/dL Performed By: #### L 500.4100 ####[facility] [address] [place], [address] Low density lipoprotein (LDL ) cholesterol measurementOrdered By: Nellie Rome on 03-07-2024 Cholesterol in LDL [Mass/Vol] 105 mg/dL 0-130 [facility] Serum or plasma cholesterol measurement (mass/volume)Ordered By: Nellie Rome on 03-07-2024 Cholesterol [Mass/Vol] 202 mg/dL High <200 [facility] Comment on above: <200 mg/dL Desirable 200-240 mg/dL Borderline >240 mg/dL High Risk Triglycerides measurementOrd ered By: Nellie Rome on 03-07-2024 Triglyceride [Mass/Vol] 165 mg/dL <199 [facility] Comment on above: The drugs N-Acetylcy steine and Metamizole may falsely depress this assay.Serum Triglycerides Reference Interval Normal <150 mg/dL Borderline high 150 - 199 mg/dL High 200 - 499 mg/dL Very High > or = 500 mg/dL Very low density lipoprotein (VLDL) cholesterol measurementOrdered By: Nellie Rome on 03-07-2024 VLDL Cholesterol 33 mg/dL 5-40 [facility] Comprehensive Metabolic Prof ilon 02-19-2024 Albumin [Mass/Vol] 3.3 g/dL Normal 3.2-5.0 [facility] Comment on above: Order Comment: PT WI LL COME BACK FOR LIPID WAS NOT FASTING.RANGLE Performed By: #### L 506.1000, L500.4050, L501.9520, L501.9985 ####[facility] [address] [place], [address] Albumin/Globulin [Mass ratio] 0.9 {ratio} Normal 0.9-2.4 [facility] Comment on above: Order Comment: PT WI LL COME BACK FOR LIPID WAS NOT FASTING.RANGLE Performed By: #### L 506.1000, L500.4050, L501.9520, L501.9985 ####[facility] [address] [place], [address] ALK P 63 U/L Normal 45-117 [facility] Comment on above: Order Comment: PT WI LL COME BACK FOR LIPID WAS NOT FASTING.RANGLE Performed By: #### L 506.1000, L500.4050, L501.9520, L501.9985 ####[facility] [address] [place], [address] ALT [Catalytic activity/Vol] 31 U/L Normal 13-56 [facility] Comment on above: Order Comment: PT WI LL COME BACK FOR LIPID WAS NOT FASTING.RANGLE Performed By: #### L 506.1000, L500.4050, L501.9520, L501.9985 ####[facility] [address] [place], [address] AST [Catalytic activity/Vol] 22 U/L Normal 15-37 [facility] Comment on above: Order Comment: PT WI LL COME BACK FOR LIPID WAS NOT FASTING.RANGLE Performed By: #### L 506.1000, L500.4050, L501.9520, L501.9985 ####[facility] [address] [place], [address] Bilirubin [Mass/Vol] 0.50 mg/dL Normal 0.20-1.00 [facility] Comment on above: Order Comment: PT WI LL COME BACK FOR LIPID WAS NOT FASTING.RANGLE Result Comment: For patients on eltrombopag therapy, use of Dimension [place] TBIL is not recommended. Performed By: #### L 506.1000, L500.4050, L501.9520, L501.9985 ####[facility] [address] [place], [address] BUN/CRE 17.8 RATIO Normal 10-20 [facility] Comment on above: Order Comment: PT WI LL COME BACK FOR LIPID WAS NOT FASTING.RANGLE Performed By: #### L 506.1000, L500.4050, L501.9520, L501.9985 ####[facility] [address] [place], [address] CA,Total 9.4 mg/dL Normal 8.5-10.1 [facility] Comment on above: Order Comment: PT WI LL COME BACK FOR LIPID WAS NOT FASTING.RANGLE Performed By: #### L 506.1000, L500.4050, L501.9520, L501.9985 ####[facility] [address] [place], [address] Chloride [Moles/Vol] 108 mmol/L High 98-107 [facility] Comment on above: Order Comment: PT WI LL COME BACK FOR LIPID WAS NOT FASTING.RANGLE Performed By: #### L 506.1000, L500.4050, L501.9520, L501.9985 ####[facility] [address] [place], [address] CO2 [Moles/Vol] 29.0 mmol/L Normal 21.0-32.0 [facility] Comment on above: Order Comment: PT WI LL COME BACK FOR LIPID WAS NOT FASTING.RANGLE Performed By: #### L 506.1000, L500.4050, L501.9520, L501.9985 ####[facility] [address] [place], [address] Creatinine [Mass/Vol] 1.29 mg/dL High 0.55-1.02 [facility] Comment on above: Order Comment: PT WI LL COME BACK FOR LIPID WAS NOT FASTING.RANGLE Result Comment: The validity of the calculated GFR GFRAA in patients over 70 years has not been determined. Clinical correlation is essential. Performed By: #### L 506.1000, L500.4050, L501.9520, L501.9985 ####[facility] [address] [place], [address] EST GFR - AA 53 mL/min Low >60 [facility] Comment on above: Order Comment: PT WI LL COME BACK FOR LIPID WAS NOT FASTING.RANGLE Result Comment: Afri can [place]ovan GFR Calc Performed By: #### L 506.1000, L500.4050, L501.9520, L501.9985 ####[facility] [address] [place], [address] GAP 4 Low 5-15 [facility] Comment on above: Order Comment: PT WI LL COME BACK FOR LIPID WAS NOT FASTING.RANGLE Performed By: #### L 506.1000, L500.4050, L501.9520, L501.9985 ####[facility] [address] [place], [address] GFR/1.73 sq M.predicted among non-blacks MDRD (S/P/Bld) [Vol rate/Area] 44 mL/min/{1.73_m2} Low >60 [facility] Comment on above: Order Comment: PT WI LL COME BACK FOR LIPID WAS NOT FASTING.RANGLE Result Comment: Non- GFR Calc Performed By: #### L 506.1000, L500.4050, L501.9520, L501.9985 ####[facility] [address] [place], [address] Globulin (S) [Mass/Vol] 3.7 g/dL Normal 2.2-4.2 [facility] Comment on above: Order Comment: PT WI LL COME BACK FOR LIPID WAS NOT FASTING.RANGLE Performed By: #### L 506.1000, L500.4050, L501.9520, L501.9985 ####[facility] [address] [place], [address] Glucose [Mass/Vol] 121 mg/dL High 74-106 [facility] Comment on above: Order Comment: PT WI LL COME BACK FOR LIPID WAS NOT FASTING.RANGLE Result Comment: Fast ing Glucose result from 100 to 125 mg/dL suggests IMPAIRED HOMEOSTASIS per A.D.A. criteria. Performed By: #### L 506.1000, L500.4050, L501.9520, L501.9985 ####[facility] [address] [place], [address] Potassium [Moles/Vol] 3.7 mmol/L Normal 3.5-5.1 [facility] Comment on above: Order Comment: PT WI LL COME BACK FOR LIPID WAS NOT FASTING.RANGLE Performed By: #### L 506.1000, L500.4050, L501.9520, L501.9985 ####[facility] [address] [place], [address] Sodium [Moles/Vol] 141 mmol/L Normal 136-145 [facility] Comment on above: Order Comment: PT WI LL COME BACK FOR LIPID WAS NOT FASTING.RANGLE Performed By: #### L 506.1000, L500.4050, L501.9520, L501.9985 ####[facility] [address] [place], [address] T PROT 7.0 g/dL Normal 6.4-8.2 [facility] Comment on above: Order Comment: PT WI LL COME BACK FOR LIPID WAS NOT FASTING.RANGLE Performed By: #### L 506.1000, L500.4050, L501.9520, L501.9985 ####[facility] [address] [place], [address] Urea nitrogen [Mass/Vol] 23 mg/dL High 7-18 [facility] Comment on above: Order Comment: PT WI LL COME BACK FOR LIPID WAS NOT FASTING.RANGLE Performed By: #### L 506.1000, L500.4050, L501.9520, L501.9985 ####[facility] [address] [place], [address] Hemoglobin A1con 02-19-2024 HbA1c (Bld) [Mass fraction] 5.7 % High 3.8-5.6 [facility] Comment on above: Result Comment: Norm al < 5.7 % Prediabetic 5.7 - 6.4 % Diabetic >or= 6.5 % Please note range changes. Performed By: #### L 506.1000, L500.4050, L501.9520, L501.9985 ####[facility] [address] [place], [address] Thyroid Stim Hormone (TSH)on 02-19-2024 TSH 0.631 uIU/mL Normal 0.358-3.74 0 [facility] Comment on above: Order Comment: PT WI LL COME BACK FOR LIPID WAS NOT FASTING.RANGLE Performed By: #### L 506.1000, L500.4050, L501.9520, L501.9985 ####[facility] [address] [place], [address] Vitamin D,25 Hydroxyon 02-18 Vitamin D 25-OH 27.9 ng/mL Normal [facility] Comment on above: Result Comment: Nahed min D 25(OH) Status Range Deficiency <20 ng/mL (50nmol/L) Insufficiency 20 - 30 ng/mL (50 - 75 nmol/L) Sufficiency 30 - 100 ng/mL (75 - 250 nmol/L) Toxicity >100 ng/mL (>250 nmol/L) Performed By: #### L 506.1000, L500.4050, L501.9520, L501.9985 ####[facility] [address] [place], [place], [address] Basophil percentageOrdered B y: Oswaldo Jonse on 05-18-2023 Creatinine [Mass/Vol] 1.4 mg/dL 0.55-1.02 [facility] Bilirubin [Mass/Vol] 0.60 mg/dL 0.20-1.00 [facility] Comment on above: For patients on eltr ombopag therapy, use of Dimension [place] TBIL is not recommended. Chloride [Moles/Vol] 107 mmol/L 98-107 [facility] Glucose [Mass/Vol] 114 mg/dL 74-106 [facility] Comment on above: Fasting Glucose resu lt from 100 to 125 mg/dL suggests IMPAIRED HOMEOSTASIS per A.D.A. criteria. Hemoglobin (Bld) [Mass/Vol] 12.7 g/dL 12.0-15.0 [facility] Potassium [Moles/Vol] 3.9 mmol/L 3.5-5.1 [facility] Protein [Mass/Vol] 7.3 g/dL 6.4-8.2 [facility] Sodium [Moles/Vol] 141 mmol/L 136-145 [facility] WBC (Bld) [#/Vol] 8.8 10*3/uL 4.4-11.0 [facility] Determination of erythrocyte mean corpuscular volume (MCV)Ordered By: Oswaldo Jones on 05-18-2023 MCV (RBC) [Entitic vol] 83.7 fL 81-99 [facility] Erythrocyte distribution wid th ratioOrdered By: [facility] on 05-18-2023 Erythrocyte distribution width (RBC) [Ratio] 13.6 % 11.6-14.6 [facility] Erythrocyte distribution wid th standard deviationOrdered By: Oswaldohenry Jones on 05-18-2023 Erythrocyte distribution width (RBC) [Entitic vol] 41.6 fL 35.1-43.9 [facility] Hematocrit Auto (Bld) [Volum e fraction]Ordered By: Oswaldo Jones on 05-18-2023 Hematocrit (Bld) [Volume fraction] 38.1 % 37-47 [facility] Laboratory - Chemistry and C hemistry - challengeOrdered By: Oswaldo Jones on 05-18-2023 GFR/1.73 sq M.predicted among non-blacks MDRD (S/P/Bld) [Vol rate/Area] 40.0000 mL/min/{1.73_m2} >60 [facility] Albumin/Globulin [Mass ratio] 1.0 {ratio} 0.9-2.4 [facility] ALP [Catalytic activity/Vol] 84 U/L 45-117 [facility] ALT [Catalytic activity/Vol] 25 U/L 13-56 [facility] CO2 [Moles/Vol] 28.0 mmol/L 21.0-32.0 [facility] Globulin (S) [Mass/Vol] 3.7 g/dL 2.2-4.2 [facility] Urea nitrogen/Creatinine [Mass ratio] 12.1 mg/mg 10-20 [facility] - Hematology and Cell countsOrdered By: Oswaldo Jones on 05-18-2023 MCH (RBC) [Entitic mass] 27.9 pg 27.0-32.0 [facility] MCHC (RBC) [Mass/Vol] 33.3 g/dL 32-36 [facility] Platelet mean volume (Bld) [Entitic vol] 9.2 fL 6.2-12.0 [facility] Platelets (Bld) [#/Vol] 367 10*3/uL 150-450 [facility] No Panel InformationOrdered By: Oswaldo Jones on 05-18-2023 Estimated GFR (MDRD) Amer 55 mL/min >60 [facility] Comment on above: GFR Calc Estimated GFR (MDRD) Non-Af Amer 46 mL/min >60 [facility] Comment on above: Non- GFR Calc RBC Auto (Bld) [#/Vol]Ordere d By: Oswaldo Jones on 05-18-2023 RBC (Bld) [#/Vol] 4.55 10*6/uL 4.2-5.4 [facility] Serum or plasma calcium cl urement (mass/volume)Ordered By: Oswaldo Jones on 05-18-2023 Calcium [Mass/Vol] 9.0 mg/dL 8.5-10.1 [facility] Serum or plasma creatinine m easurement (mass/volume)Ordered By: Oswaldo Jones on 05-18-2023 Creatinine [Mass/Vol] 1.24 mg/dL 0.55-1.02 [facility] Comment on above: The validity of the calculated GFR & GFRAA in patients over 70 years has not been determined. Clinical correlation is essential. Serum or plasma urea nitroge n measurement (mass/volume)Ordered By: Oswaldo Jones on 05-18-2023 Urea nitrogen [Mass/Vol] 15 mg/dL 7-18 [facility] Thin prep Papanicolaou smear with manual screeningOrdered By: Oswaldo Jones on 05-18-2023 Thin prep Papanicolaou smear with manual screening 3.6 g/dL 3.2-5.0 [facility] Thin prep Papanicolaou smear with manual screening 16 U/L 15-37 [facility] Thin prep Papanicolaou smear with manual screening 6 5-15 [facility] Absolute lymphocyte countOrd ered By: Nellie Rome on 02-14-2023 Lymphocytes Auto (Unsp spec) [#/Vol] 2.18 10*3/uL 0.83-4.51 [facility] Basophil percentageOrdered B y: Nellie Rome on 02-14-2023 Basophils/100 WBC (Bld) 0.6 % 0-1 [facility] Bilirubin [Mass/Vol] 0.60 mg/dL 0.20-1.00 [facility] Comment on above: For patients on eltr ombopag therapy, use of Dimension [place] TBIL is not recommended. Chloride [Moles/Vol] 104 mmol/L 98-107 [facility] Cholesterol [Mass/Vol] 204 mg/dL <200 [facility] Comment on above: <200 mg/dL Desirable 200-240 mg/dL Borderline >240 mg/dL High Risk Eosinophils/100 WBC (Bld) 2.6 % 0-5 [facility] Glucose [Mass/Vol] 101 mg/dL 74-106 [facility] Comment on above: Fasting Glucose resu lt from 100 to 125 mg/dL suggests IMPAIRED HOMEOSTASIS per A.D.A. criteria. Neutrophils (Bld) [#/Vol] 4.9 10*3/uL 2.0-7.7 [facility] Neutrophils/100 WBC (Bld) 61.7 % 47-70 [facility] Potassium [Moles/Vol] 3.8 mmol/L 3.5-5.1 [facility] Protein [Mass/Vol] 7.4 g/dL 6.4-8.2 [facility] Sodium [Moles/Vol] 140 mmol/L 136-145 [facility] Triglyceride [Mass/Vol] 288 mg/dL <199 [facility] Comment on above: The drugs N-Acetylcy steine and Metamizole may falsely depress this assay.Serum Triglycerides Reference Interval Normal <150 mg/dL Borderline high 150 - 199 mg/dL High 200 - 499 mg/dL Very High > or = 500 mg/dL WBC (Bld) [#/Vol] 8.0 10*3/uL 4.4-11.0 [facility] Blood erythrocytes count (nu mber/volume)Ordered By: Nellie Rome on 02-14-2023 RBC (Bld) [#/Vol] 4.70 10*6/uL 4.2-5.4 [facility] Blood hemoglobin measurement (mass/volume)Ordered By: Nellie Rome on 02-14-2023 Hemoglobin (Bld) [Mass/Vol] 12.8 g/dL 12.0-15.0 [facility] Blood lymphocytes/100 leukoc ytesOrdered By: Nellie Rome on 02-14-2023 Lymphocytes/100 WBC (Bld) 27.3 % 19-41 [facility] Blood monocytes/100 leukocyt esOrdered By: Nellie Rome on 02-14-2023 Monocytes/100 WBC (Bld) 7.4 % 0-10 [facility] Blood platelet mean volumeOr dered By: Nellie Rome on 02-14-2023 Platelet mean volume (Bld) [Entitic vol] 9.7 fL 6.2-12.0 [facility] Determination of erythrocyte mean corpuscular volume (MCV)Ordered By: Nellie Rome on 02-14-2023 MCV (RBC) [Entitic vol] 84.9 fL 81-99 [facility] Hematocrit Auto (Bld) [Volum e fraction]Ordered By: Nellie Rome on 02-14-2023 Hematocrit (Bld) [Volume fraction] 39.9 % 37-47 [facility] Laboratory - Chemistry and C hemistry - challengeOrdered By: Nelile Rome on 02-14-2023 ALP [Catalytic activity/Vol] 73 U/L 45-117 [facility] ALT [Catalytic activity/Vol] 19 U/L 13-56 [facility] CO2 [Moles/Vol] 30.0 mmol/L 21.0-32.0 [facility] Globulin (S) [Mass/Vol] 3.9 g/dL 2.2-4.2 [facility] Urea nitrogen/Creatinine [Mass ratio] 15.4 mg/mg 10-20 [facility] Laboratory - Hematology and Cell countsOrdered By: Nellie Rome on 02-14-2023 Erythrocyte distribution width (RBC) [Entitic vol] 44.2 fL 35.1-43.9 [facility] Erythrocyte distribution width (RBC) [Ratio] 14.3 % 11.6-14.6 [facility] Immature granulocytes/100 WBC (Bld) 0.400 % 0.0-0.9 [facility] Comment on above: IG% - Immature Granu locytes (promyelocytes, myelocytes and metamyelocytes) > 1% indicates that a LEFT SHIFT is Present. MCH (RBC) [Entitic mass] 27.2 pg 27.0-32.0 [facility] Nucleated RBC/100 WBC (Bld) [Ratio] 0 % 0-5 [facility] MCHC Auto (RBC) [Mass/Vol]Or dered By: Nellie Rome on 02-14-2023 MCHC (RBC) [Mass/Vol] 32.1 g/dL 32-36 [facility] No Panel InformationOrdered By: Nellie Rome on 02-14-2023 Estimated GFR (MDRD) Amer 68 mL/min >60 [facility] Comment on above: GFR Calc Estimated GFR (MDRD) Non-Af Amer 56 mL/min >60 [facility] Comment on above: Non- GFR Calc Platelets bldOrdered By: Vernon Rome on 02-14-2023 Platelets (Bld) [#/Vol] 379 10*3/uL 150-450 [facility] Serum or plasma albumin cl urement (mass/volume)Ordered By: Nellie Rome on 02-14-2023 Albumin [Mass/Vol] 3.5 g/dL 3.2-5.0 [facility] Serum or plasma albumin/glob ulin mass ratioOrdered By: Nellie Rome on 02-14-2023 Albumin/Globulin [Mass ratio] 0.9 {ratio} 0.9-2.4 [facility] Serum or plasma calcium cl urement (mass/volume)Ordered By: Nellie Rome on 02-14-2023 Calcium [Mass/Vol] 8.9 mg/dL 8.5-10.1 [facility] Serum or plasma cholesterol in HDL measurement (mass/volume)Ordered By: Nellie Rome on 02-14-2023 Cholesterol in HDL [Mass/Vol] 55 mg/dL >40 [facility] Comment on above: The drugs N-Acetylcy steine and Metamizole may falsely depress this assay. Reference Range HDL <40 mg/dL Low HDL Cholesterol HDL >or= 60 mg/dL High HDL Cholesterol Serum or plasma cholesterol in VLDL measurement (mass/volume)Ordered By: Nellie Rome on 02-14-2023 Cholesterol in VLDL [Mass/Vol] 58 mg/dL 5-40 [facility] Serum or plasma creatinine m easurement (mass/volume)Ordered By: Nellie Rome on 02-14-2023 Creatinine [Mass/Vol] 1.04 mg/dL 0.55-1.02 [facility] Comment on above: The validity of the calculated GFR & GFRAA in patients over 70 years has not been determined. Clinical correlation is essential. Serum or plasma low density lipoprotein (LDL) cholesterol measurement (mass/volume)Ordered By: Nellie Rome on 02-14-2023 Cholesterol in LDL [Mass/Vol] 91 mg/dL 0-130 [facility] Serum or plasma urea nitroge n measurement (mass/volume)Ordered By: Nellie Rome on 02-14-2023 Urea nitrogen [Mass/Vol] 16 mg/dL 7-18 [facility] Thin prep Papanicolaou smear with manual screeningOrdered By: Nellie Rome on 02-14-2023 Thin prep Papanicolaou smear with manual screening 14 U/L 15-37 [facility] Thin prep Papanicolaou smear with manual screening 6 5-15 [facility] Whole blood hemoglobin A1c/t otal hemoglobin ratio (mass fraction)Ordered By: Nellie Rome on 02-14-2023 HbA1c (Bld) [Mass fraction] 5.8 % 3.8-5.6 [facility] Comment on above: Normal < 5.7 % Predi abetic 5.7 - 6.4 % Diabetic >or= 6.5 % Please note range changes. Basophil percentageOrdered B y: Dr. Jones on 04-04-2022 Creatinine [Mass/Vol] 1.0 mg/dL 0.55-1.02 [facility] No Panel InformationOrdered By: Dr. Jones on 04-04-2022 Bedside Estimated GFR (eGFR) > 60.0000 mL/min >60 [facility] Absolute lymphocyte countOrd ered By: Dr. Rome on 03-17-2022 Lymphocytes Auto (Unsp spec) [#/Vol] 1.96 10*3/uL 0.83-4.51 [facility] Basophil percentageOrdered B y: Dr. Rome on 03-17-2022 Basophils/100 WBC (Bld) 0.7 % 0-1 [facility] Eosinophils/100 WBC (Bld) 3.4 % 0-5 [facility] Neutrophils (Bld) [#/Vol] 4.4 10*3/uL 2.0-7.7 [facility] Neutrophils/100 WBC (Bld) 60.5 % 47-70 [facility] WBC (Bld) [#/Vol] 7.3 10*3/uL 4.4-11.0 [facility] Blood erythrocytes count (nu mber/volume)Ordered By: Dr. Rome on 03-17-2022 RBC (Bld) [#/Vol] 4.83 10*6/uL 4.2-5.4 [facility] Blood hemoglobin measurement (mass/volume)Ordered By: Dr. Rome on 03-17-2022 Hemoglobin (Bld) [Mass/Vol] 13.4 g/dL 12.0-15.0 [facility] Blood lymphocytes/100 leukoc ytesOrdered By: Dr. Rome on 03-17-2022 Lymphocytes/100 WBC (Bld) 26.8 % 19-41 [facility] Blood monocytes/100 leukocyt esOrdered By: Dr. Rome on 03-17-2022 Monocytes/100 WBC (Bld) 8.3 % 0-10 [facility] Blood platelet mean volumeOr dered By: Dr. Rome on 03-17-2022 Platelet mean volume (Bld) [Entitic vol] 10.0 fL 6.2-12.0 [facility] Determination of erythrocyte mean corpuscular volume (MCV)Ordered By: Dr. Rome on 03-17-2022 MCV (RBC) [Entitic vol] 82.0 fL 81-99 [facility] Hematocrit Auto (Bld) [Volum e fraction]Ordered By: Dr. Rome on 03-17-2022 Hematocrit (Bld) [Volume fraction] 39.6 % 37-47 [facility] Iron measurement (mass/mass) Ordered By: Dr. Rome on 03-17-2022 Iron (Unsp spec) [Mass/Mass] 76 ug/dL 50-170 [facility] Laboratory - Hematology and Cell countsOrdered By: Dr. Rome on 03-17-2022 Erythrocyte distribution width (RBC) [Entitic vol] 49.3 fL 35.1-43.9 [facility] Erythrocyte distribution width (RBC) [Ratio] 16.6 % 11.6-14.6 [facility] Immature granulocytes/100 WBC (Bld) 0.300 % 0.0-0.9 [facility] Comment on above: IG% - Immature Granu locytes (promyelocytes, myelocytes and metamyelocytes) > 1% indicates that a LEFT SHIFT is Present. MCH (RBC) [Entitic mass] 27.7 pg 27.0-32.0 [facility] Nucleated RBC/100 WBC (Bld) [Ratio] 0 % 0-5 [facility] MCHC Auto (RBC) [Mass/Vol]Or dered By: Dr. Rome on 03-17-2022 MCHC (RBC) [Mass/Vol] 33.8 g/dL 32-36 [facility] No Panel InformationOrdered By: Dr. Rome on 03-17-2022 Total Iron Binding Capacity 397 ug/dL 250-450 [facility] Platelets bldOrdered By: Dr. Rome on 03-17-2022 Platelets (Bld) [#/Vol] 374 10*3/uL 150-450 [facility] Serum or plasma ferritin [place] surement (mass/volume)Ordered By: Dr. Rome on 03-17-2022 Ferritin [Mass/Vol] 18 ng/mL 8-252 [facility] Serum or plasma iron saturat ion measurement (mass fraction)Ordered By: Dr. Rome on 03-17-2022 Iron saturation [Mass fraction] 19.1 % 15.0-55.0 [facility] Absolute lymphocyte countOrd ered By: Dr. Rome on 12-01-2021 Lymphocytes Auto (Unsp spec) [#/Vol] 1.87 10*3/uL 0.83-4.51 [facility] Basophil percentageOrdered B y: Dr. Rome on 12-01-2021 Basophils/100 WBC (Bld) 0.5 % 0-1 [facility] Eosinophils/100 WBC (Bld) 2.3 % 0-5 [facility] Neutrophils (Bld) [#/Vol] 6.0 10*3/uL 2.0-7.7 [facility] Neutrophils/100 WBC (Bld) 69.3 % 47-70 [facility] WBC (Bld) [#/Vol] 8.7 10*3/uL 4.4-11.0 [facility] Blood erythrocytes count (nu mber/volume)Ordered By: Dr. Rome on 12-01-2021 RBC (Bld) [#/Vol] 4.55 10*6/uL 4.2-5.4 [facility] Blood hemoglobin measurement (mass/volume)Ordered By: Dr. Rome on 12-01-2021 Hemoglobin (Bld) [Mass/Vol] 10.9 g/dL 12.0-15.0 [facility] Blood lymphocytes/100 leukoc ytesOrdered By: Dr. Rome on 12-01-2021 Lymphocytes/100 WBC (Bld) 21.6 % 19-41 [facility] Blood monocytes/100 leukocyt esOrdered By: Dr. Rome on 12-01-2021 Monocytes/100 WBC (Bld) 6.1 % 0-10 [facility] Blood platelet mean volumeOr dered By: Dr. Rome on 12-01-2021 Platelet mean volume (Bld) [Entitic vol] 9.5 fL 6.2-12.0 [facility] Determination of erythrocyte mean corpuscular volume (MCV)Ordered By: Dr. Rome on 12-01-2021 MCV (RBC) [Entitic vol] 78.5 fL 81-99 [facility] Hematocrit Auto (Bld) [Volum e fraction]Ordered By: Dr. Rome on 12-01-2021 Hematocrit (Bld) [Volume fraction] 35.7 % 37-47 [facility] Iron measurement (mass/mass) Ordered By: Dr. Rome on 12-01-2021 Iron (Unsp spec) [Mass/Mass] 36 ug/dL 50-170 [facility] Laboratory - Hematology and Cell countsOrdered By: Dr. Rome on 12-01-2021 Erythrocyte distribution width (RBC) [Entitic vol] 44.9 fL 35.1-43.9 [facility] Erythrocyte distribution width (RBC) [Ratio] 15.8 % 11.6-14.6 [facility] Immature granulocytes/100 WBC (Bld) 0.200 % 0.0-0.9 [facility] Comment on above: IG% - Immature Granu locytes (promyelocytes, myelocytes and metamyelocytes) > 1% indicates that a LEFT SHIFT is Present. MCH (RBC) [Entitic mass] 24.0 pg 27.0-32.0 [facility] Nucleated RBC/100 WBC (Bld) [Ratio] 0 % 0-5 [facility] MCHC Auto (RBC) [Mass/Vol]Or dered By: Dr. Rome on 12-01-2021 MCHC (RBC) [Mass/Vol] 30.5 g/dL 32-36 [facility] No Panel InformationOrdered By: Dr. Rome on 12-01-2021 Total Iron Binding Capacity 426 ug/dL 250-450 [facility] Vitamin D 25-Hydroxy 43.8 ng/mL [facility] Comment on above: Vitamin D 25(OH) Sta tus Range Deficiency <20 ng/mL (50nmol/L) Insufficiency 20 - 30 ng/mL (50 - 75 nmol/L) Sufficiency 30 - 100 ng/mL (75 - 250 nmol/L) Toxicity >100 ng/mL (>250 nmol/L) Platelets bldOrdered By: Dr. Rome on 12-01-2021 Platelets (Bld) [#/Vol] 450 10*3/uL 150-450 [facility] Serum or plasma ferritin [place] surement (mass/volume)Ordered By: Dr. Rome on 12-01-2021 Ferritin [Mass/Vol] 7 ng/mL 8-252 [facility] Absolute lymphocyte counton 10-13-2021 Lymphocytes Auto (Unsp spec) [#/Vol] 1.97 10*3/uL 0.83-4.51 [facility] Work Phone: Basophil percentageon 2021 Basophils/100 WBC (Bld) 0.3 % 0-1 [facility] Work Phone: Eosinophils/100 WBC (Bld) 5.9 % 0-5 [facility] Work Phone: Neutrophils (Bld) [#/Vol] 9.3 10*3/uL 2.0-7.7 [facility] Work Phone: Neutrophils/100 WBC (Bld) 71.3 % 47-70 [facility] Work Phone: WBC (Bld) [#/Vol] 13.0 10*3/uL 4.4-11.0 [facility] Work Phone: [phone] Blood erythrocytes count (nu mber/volume)on 10-13-2021 RBC (Bld) [#/Vol] 4.08 10*6/uL 4.2-5.4 [facility] Work Phone: [phone] Blood hemoglobin measurement (mass/volume)on 10-13-2021 Hemoglobin (Bld) [Mass/Vol] 10.4 g/dL 12.0-15.0 [facility] Work Phone: Blood lymphocytes/100 leukoc yteson 10-13-2021 Lymphocytes/100 WBC (Bld) 15.2 % 19-41 [facility] Work Phone: Blood monocytes/100 leukocyt eson 10-13-2021 Monocytes/100 WBC (Bld) 6.9 % 0-10 [facility] Work Phone: Blood platelet mean volumeon 10-13-2021 Platelet mean volume (Bld) [Entitic vol] 9.4 fL 6.2-12.0 [facility] Work Phone: [phone] Determination of erythrocyte mean corpuscular volume (MCV)on 10-13-2021 MCV (RBC) [Entitic vol] 80.9 fL 81-99 [facility] Work Phone: Hematocrit Auto (Bld) [Volum e fraction]on 10-13-2021 Hematocrit (Bld) [Volume fraction] 33.0 % 37-47 [facility] Work Phone: Laboratory - Hematology and Cell countson 10-13-2021 Erythrocyte distribution width (RBC) [Entitic vol] 43.0 fL 35.1-43.9 [facility] Work Phone: [phone] Erythrocyte distribution width (RBC) [Ratio] 14.9 % 11.6-14.6 [facility] Work Phone: Immature granulocytes/100 WBC (Bld) 0.400 % 0.0-0.9 [facility] Work Phone: Comment on above: IG% - Immature Granu locytes (promyelocytes, myelocytes and metamyelocytes) > 1% indicates that a LEFT SHIFT is Present. MCH (RBC) [Entitic mass] 25.5 pg 27.0-32.0 [facility] Work Phone: Nucleated RBC/100 WBC (Bld) [Ratio] 0 % 0-5 [facility] Work Phone: MCHC Auto (RBC) [Mass/Vol]on 10-13-2021 MCHC (RBC) [Mass/Vol] 31.5 g/dL 32-36 [facility] Work Phone: Platelets bldon 10-13-2021 Platelets (Bld) [#/Vol] 424 10*3/uL 150-450 [facility] Work Phone: Basophil percentageon 2021 Chloride [Moles/Vol] 105 mmol/L 98-[address] [facility] Work Phone: [phone] Glucose [Mass/Vol] 126 mg/dL 74-106 [facility] Work Phone: Comment on above: Fasting Glucose resu lt greater than or equal to 126 mg/dL suggests DIABETES MELLITUS per A.D.A. criteria. Potassium [Moles/Vol] 4.2 mmol/L 3.5-5.1 [facility] Work Phone: Sodium [Moles/Vol] 137 mmol/L 136-145 [facility] Work Phone: Glucose Glucometer (BldC) [M ass/Vol]on 10-12-2021 Glucose [Mass/Vol] 131 mg/dL 74-106 [facility] Work Phone: Comment on above: MANAGEMENT OF PATIEN T CARE PER NURSING PROTOCOL Laboratory - Chemistry and C hemistry - challengeon 10-12-2021 CO2 [Moles/Vol] 28.0 mmol/L 21.0-32.0 [facility] Work Phone: Urea nitrogen/Creatinine [Mass ratio] 9.9 mg/mg 10-20 [facility] Work Phone: No Panel Informationon 10-12 Estimated Creatinine Clearance Calc 33.41 ml/min [facility] Work Phone: Estimated GFR (MDRD) Amer 52 mL/min >60 [facility] Work Phone: Comment on above: GFR Calc Estimated GFR (MDRD) Non-Af Amer 43 mL/min >60 [facility] Work Phone: Comment on above: Non- GFR Calc Serum or plasma calcium cl urement (mass/volume)on 10-12-2021 Calcium [Mass/Vol] 8.9 mg/dL 8.5-10.1 [facility] Work Phone: Serum or plasma creatinine m easurement (mass/volume)on 10-12-2021 Creatinine [Mass/Vol] 1.31 mg/dL 0.55-1.02 [facility] Work Phone: Comment on above: The validity of the calculated GFR & GFRAA in patients over 70 years has not been determined. Clinical correlation is essential. Serum or plasma urea nitroge n measurement (mass/volume)on 10-12-2021 Urea nitrogen [Mass/Vol] 13 mg/dL 7-18 [facility] Work Phone: Thin prep Papanicolaou smear with manual screeningon 10-12-2021 Thin prep Papanicolaou smear with manual screening 4 5-15 [facility] Work Phone: Basophil percentageon 2021 Bilirubin [Mass/Vol] 0.30 mg/dL 0.20-1.00 [facility] Work Phone: Comment on above: For patients on eltr ombopag therapy, use of Dimension [place] TBIL is not recommended. Protein [Mass/Vol] 6.6 g/dL 6.4-8.2 [facility] Work Phone: INR in Blood by Coagulation assayon 10-06-2021 INR Coag (Bld) [Relative time] 1.1 {INR} [facility] Work Phone: Laboratory - Chemistry and C hemistry - challengeon 10-06-2021 ALP [Catalytic activity/Vol] 60 U/L 45-117 [facility] Work Phone: ALT [Catalytic activity/Vol] 17 U/L 13-56 [facility] Work Phone: Globulin (S) [Mass/Vol] 3.8 g/dL 2.2-4.2 [facility] Work Phone: Magnesium [Mass/Vol] 2.0 mg/dL 1.6-2.6 [facility] Work Phone: Laboratory - Coagulationon 0 10-06-2021 aPTT Coag (Bld) [Time] 30.2 s 24.1-36.2 [facility] Work Phone: PT Coag (PPP) [Time] 13.7 s 11.7-14.9 [facility] Work Phone: No Panel Informationon 10-06 Thyroid Stimulating Hormone (TSH) 0.86 uIU/mL 0.358-3.74 [facility] Work Phone: Serum or plasma albumin cl urement (mass/volume)on 10-06-2021 Albumin [Mass/Vol] 2.8 g/dL 3.2-5.0 [facility] Work Phone: Serum or plasma albumin/glob ulin mass ratioon 10-06-2021 Albumin/Globulin [Mass ratio] 0.7 {ratio} 0.9-2.4 [facility] Work Phone: Serum or plasma carcinoembry onic antigen measurement (mass/volume)on 10-06-2021 Carcinoembryonic Ag [Mass/Vol] 0.7 ng/mL 0.0-4.7 [facility] Work Phone: Comment on above: Nonsmokers <3.9 Smok ers <5.6[employer] Electrochemiluminescence Immunoassay(ECLIA)Values obtained with different assay methods or kitscannot be used interchangeably. Results cannot beinterpreted as absolute evidence of the presence orabsence of malignant disease.Performed at: [employer] [id number] Director: Beto Yap PhD, Phone: [phone] Thin prep Papanicolaou smear with manual screeningon 10-06-2021 Thin prep Papanicolaou smear with manual screening 10 U/L 15-37 [facility] Work Phone: Basophil percentageon 2021 Creatinine [Mass/Vol] 1.0 mg/dL 0.55-1.02 [facility] Work Phone: Laboratory - Chemistry and C hemistry - challengeon 09-08-2021 GFR/1.73 sq M.predicted among non-blacks MDRD (S/P/Bld) [Vol rate/Area] 56.0000 mL/min/{1.73_m2} >60 [facility] Work Phone: Absolute lymphocyte counton 09-01-2021 Lymphocytes Auto (Unsp spec) [#/Vol] 2.73 10*3/uL 0.83-4.51 [facility] Work Phone: Basophil percentageon 2021 Basophils/100 WBC (Bld) 0.2 % 0-1 [facility] Work Phone: [phone] Eosinophils/100 WBC (Bld) 1.5 % 0-5 [facility] Work Phone: [phone] Neutrophils (Bld) [#/Vol] 9.1 10*3/uL 2.0-7.7 [facility] Work Phone: [phone] Neutrophils/100 WBC (Bld) 69.6 % 47-70 [facility] Work Phone: [phone] WBC (Bld) [#/Vol] 13.0 10*3/uL 4.4-11.0 [facility] Work Phone: Blood erythrocytes count (nu mber/volume)on 09-01-2021 RBC (Bld) [#/Vol] 4.14 10*6/uL 4.2-5.4 [facility] Work Phone: Blood hemoglobin measurement (mass/volume)on 09-01-2021 Hemoglobin (Bld) [Mass/Vol] 11.3 g/dL 12.0-15.0 [facility] Work Phone: Blood lymphocytes/100 leukoc yteson 09-01-2021 Lymphocytes/100 WBC (Bld) 21.0 % 19-41 [facility] Work Phone: [phone] Blood monocytes/100 leukocyt eson 09-01-2021 Monocytes/100 WBC (Bld) 7.3 % 0-10 [facility] Work Phone: Blood platelet mean volumeon 09-01-2021 Platelet mean volume (Bld) [Entitic vol] 9.0 fL 6.2-12.0 [facility] Work Phone: Determination of erythrocyte mean corpuscular volume (MCV)on 09-01-2021 MCV (RBC) [Entitic vol] 84.3 fL 81-99 [facility] Work Phone: [phone] Hematocrit Auto (Bld) [Volum e fraction]on 09-01-2021 Hematocrit (Bld) [Volume fraction] 34.9 % 37-47 [facility] Work Phone: Laboratory - Hematology and Cell countson 09-01-2021 Erythrocyte distribution width (RBC) [Entitic vol] 42.3 fL 35.1-43.9 [facility] Work Phone: Erythrocyte distribution width (RBC) [Ratio] 13.6 % 11.6-14.6 [facility] Work Phone: Immature granulocytes/100 WBC (Bld) 0.400 % 0.0-0.9 [facility] Work Phone: Comment on above: IG% - Immature Granu locytes (promyelocytes, myelocytes and metamyelocytes) > 1% indicates that a LEFT SHIFT is Present. MCH (RBC) [Entitic mass] 27.3 pg 27.0-32.0 [facility] Work Phone: Nucleated RBC/100 WBC (Bld) [Ratio] 0 % 0-5 [facility] Work Phone: MCHC Auto (RBC) [Mass/Vol]on 09-01-2021 MCHC (RBC) [Mass/Vol] 32.4 g/dL 32-36 [facility] Work Phone: Platelets bldon 09-01-2021 Platelets (Bld) [#/Vol] 496 10*3/uL 150-450 [facility] Work Phone: Vital Signs Date Time Vital Sign Value Performing Clinician Faci lity 12-08-2024 14:41-0400 Body height 160.[address] Nellie Rome MD Work Phone: [facility] 12-08-2024 14:41-0400 Body mass index (BMI) [Ratio] 36.6 kg/m2 Dr. Nellie Rome MD Work Phone: [facility] 12-08-2024 14:41-0400 Body temperature 97.8 [degF] Dr. Nellie Rome MD Work Phone: [facility] 12-08-2024 14:41-0400 Body weight 93.[address] Nellie Rome MD Work Phone: [facility] 12-08-2024 14:41-0400 Diastolic blood pressure 83 mm[Hg] Dr. Nellie Rome MD Work Phone: [facility] 12-08-2024 14:41-0400 Heart rate 67 /min Dr. Nellie Rome MD Work Phone: [facility] 12-08-2024 14:41-0400 Respiratory rate 18 /min Dr. Nellie Rome MD Work Phone: [facility] 12-08-2024 14:41-0400 SaO2% (BldA) [Mass fraction] 98 % Dr. Nellie Rome MD Work Phone: [facility] 12-08-2024 14:41-0400 Systolic blood pressure 161 mm[Hg] Dr. Nellie Rome MD Work Phone: [facility] 12-02-2024 08:58-0400 Body mass index (BMI) [Ratio] 36.5 kg/m2 Dr. Nellie Rome MD Work Phone: [facility] 12-02-2024 08:58-0400 Body temperature 98.2 [degF] Dr. Nellie Rome MD Work Phone: [facility] 12-02-2024 08:58-0400 Body weight 93.[address] Nellie Rome MD Work Phone: [facility] 12-02-2024 08:58-0400 Diastolic blood pressure 77 mm[Hg] Dr. Nellie Rome MD Work Phone: [facility] 12-02-2024 08:58-0400 Heart rate 78 /min Dr. Nellie Rome MD Work Phone: [facility] 12-02-2024 08:58-0400 Respiratory rate 18 /min Dr. Nellie Rome MD Work Phone: [facility] 12-02-2024 08:58-0400 SaO2% (BldA) [Mass fraction] 96 % Dr. Nellie Rome MD Work Phone: [facility] 12-02-2024 08:58-0400 Systolic blood pressure 143 mm[Hg] Dr. Nellie Rome MD Work Phone: [facility] 11-27-2024 12:10-0400 Body height 160.[address] Nellie Rome MD Work Phone: [facility] 11-27-2024 12:10-0400 Body mass index (BMI) [Ratio] 35.7 kg/m2 Dr. Nellie Rome MD Work Phone: [facility] 11-27-2024 12:10-0400 Body temperature 98 [degF] Dr. Nellie Rome MD Work Phone: [facility] 11-27-2024 12:10-0400 Body weight 91.[address] Nellie Rome MD Work Phone: [facility] 11-27-2024 12:10-0400 Diastolic blood pressure 75 mm[Hg] Dr. Nellie Rome MD Work Phone: [facility] 11-27-2024 12:10-0400 Heart rate 84 /min Dr. Nellie Rome MD Work Phone: [facility] 11-27-2024 12:10-0400 Respiratory rate 18 /min Dr. Nellie Rome MD Work Phone: [facility] 11-27-2024 12:10-0400 SaO2% (BldA) [Mass fraction] 94 % Dr. Nellie Rome MD Work Phone: [facility] 11-27-2024 12:10-0400 Systolic blood pressure 119 mm[Hg] Dr. Nellie Rome MD Work Phone: [facility] 11-21-2024 08:27-0400 Diastolic blood pressure 84 mm[Hg] Dr. Nellie Rome MD Work Phone: [facility] 11-21-2024 08:27-0400 Heart rate 54 /min Dr. Nellie Rome MD Work Phone: [facility] 11-21-2024 08:27-0400 Systolic blood pressure 134 mm[Hg] Dr. Nellie Rome MD Work Phone: [facility] 11-21-2024 07:53-0400 Body mass index (BMI) [Ratio] 36.3 kg/m2 Dr. Nellie Rome MD Work Phone: [facility] 11-21-2024 07:53-0400 Body temperature 96.1 [degF] Dr. Nellie Rome MD Work Phone: [facility] 11-21-2024 07:53-0400 Respiratory rate 14 /min Dr. Nellie Rome MD Work Phone: [facility] 11-21-2024 07:53-0400 SaO2% (BldA) [Mass fraction] 98 % Dr. Nellie Rome MD Work Phone: [facility] 11-17-2024 11:08-0400 Body height 160.[address] Nellie Rome MD Work Phone: [facility] 11-17-2024 11:08-0400 Body mass index (BMI) [Ratio] 36.5 kg/m2 Dr. Nellie Rome MD Work Phone: [facility] 11-17-2024 11:08-0400 Body temperature 97.9 [degF] Dr. Nellie Rome MD Work Phone: [facility] 11-17-2024 11:08-0400 Body weight 93.[address] Nellie Rome MD Work Phone: [facility] 11-17-2024 11:08-0400 Diastolic blood pressure 82 mm[Hg] Dr. Nellie Rome MD Work Phone: [facility] 11-17-2024 11:08-0400 Heart rate 54 /min Dr. Nellie Rome MD Work Phone: [facility] 11-17-2024 11:08-0400 Respiratory rate 16 /min Dr. Nellie Rome MD Work Phone: [facility] 11-17-2024 11:08-0400 SaO2% (BldA) [Mass fraction] 97 % Dr. Nellie Rome MD Work Phone: [facility] 11-17-2024 11:08-0400 Systolic blood pressure 147 mm[Hg] Dr. Nellie Rome MD Work Phone: [facility] 11-11-2024 11:46-0400 Body height 160.[address] Nellie Rome MD Work Phone: [facility] 11-11-2024 11:46-0400 Body mass index (BMI) [Ratio] 36.3 kg/m2 Dr. Nellie Rome MD Work Phone: [facility] 11-11-2024 11:46-0400 Body temperature 96.7 [degF] Dr. Nellie Rome MD Work Phone: [facility] 11-11-2024 11:46-0400 Body weight 93.[address] Nellie Rome MD Work Phone: [facility] 11-11-2024 11:46-0400 Diastolic blood pressure 78 mm[Hg] Dr. Nellie Rome MD Work Phone: [facility] 11-11-2024 11:46-0400 Heart rate 59 /min Dr. Nellie Rome MD Work Phone: [facility] 11-11-2024 11:46-0400 Respiratory rate 16 /min Dr. Nellie Rome MD Work Phone: [facility] 11-11-2024 11:46-0400 SaO2% (BldA) [Mass fraction] 97 % Dr. Nellie Rome MD Work Phone: [facility] 11-11-2024 11:46-0400 Systolic blood pressure 145 mm[Hg] Dr. Nellie Rome MD Work Phone: [facility] 10-30-2024 10:08-0400 Body height 160.[address] Nellie Rome MD Work Phone: [facility] 10-30-2024 10:08-0400 Body mass index (BMI) [Ratio] 36.3 kg/m2 Dr. Nellie Rome MD Work Phone: [facility] 10-30-2024 10:08-0400 Body temperature 97.8 [degF] Dr. Nellie Rome MD Work Phone: [facility] 10-30-2024 10:08-0400 Body weight 92.[address] Nellie Rome MD Work Phone: [facility] 10-30-2024 10:08-0400 Diastolic blood pressure 76 mm[Hg] Dr. Nellie Rome MD Work Phone: [facility] 10-30-2024 10:08-0400 Heart rate 64 /min Dr. Nellie Rome MD Work Phone: [facility] 10-30-2024 10:08-0400 Respiratory rate 18 /min Dr. Nellie Rome MD Work Phone: [facility] 10-30-2024 10:08-0400 SaO2% (BldA) [Mass fraction] 96 % Dr. Nellie Rome MD Work Phone: [facility] 10-30-2024 10:08-0400 Systolic blood pressure 127 mm[Hg] Dr. Nellie Rome MD Work Phone: [facility] 10-07-2024 18:29-0400 Body temperature 97.5 [degF] Dr. Nellie Rome MD Work Phone: [facility] 10-07-2024 18:29-0400 Diastolic blood pressure 64 mm[Hg] Dr. Nellie Rome MD Work Phone: [facility] 10-07-2024 18:29-0400 Heart rate 69 /min Dr. Nellie Rome MD Work Phone: [facility] 10-07-2024 18:29-0400 Respiratory rate 16 /min Dr. Nellie Rome MD Work Phone: [facility] 10-07-2024 18:29-0400 SaO2% (BldA) [Mass fraction] 98 % Dr. Nellie Rome MD Work Phone: [facility] 10-07-2024 18:29-0400 Systolic blood pressure 133 mm[Hg] Dr. Nellie Rome MD Work Phone: [facility] 10-07-2024 10:26-0400 Body height 160.[address] Nellie Rome MD Work Phone: [facility] 10-07-2024 10:26-0400 Body mass index (BMI) [Ratio] 36.3 kg/m2 Dr. Nellie Rome MD Work Phone: [facility] 10-07-2024 10:26-0400 Body weight [address] Nellie Rome MD Work Phone: [facility] 09-26-2024 13:25-0400 Body height 160.[address] Nellie Rome MD Work Phone: [facility] 09-26-2024 13:25-0400 Body mass index (BMI) [Ratio] 36.8 kg/m2 Dr. Nellie Rome MD Work Phone: [facility] 09-26-2024 13:25-0400 Body weight 94.[address] Nellie Rome MD Work Phone: [facility] 09-26-2024 13:25-0400 Diastolic blood pressure 78 mm[Hg] Dr. Nellie Rome MD Work Phone: 0([phone] [place] [address] 09-26-2024 13:25-0400 Heart rate 70 /min Dr. Nellie Rome MD Work Phone: 8(348)[phone] [place] [address] 09-26-2024 13:25-0400 Respiratory rate 18 /min Dr. Nellie Rome MD Work Phone: 7(754)[phone] [place] [address] 09-26-2024 13:25-0400 SaO2% (BldA) [Mass fraction] 97 % Dr. Nellie Rome MD Work Phone: 2(944)[phone] [place] [address] 09-26-2024 13:25-0400 Systolic blood pressure 149 mm[Hg] Dr. Nellie Rome MD Work Phone: [facility] 09-15-2024 12:45-0400 Body height 160.[address] Nellie Rome MD Work Phone: [facility] 09-15-2024 12:45-0400 Body mass index (BMI) [Ratio] 37.3 kg/m2 Dr. Nellie Rome MD Work Phone: [facility] 09-15-2024 12:45-0400 Body temperature 97.2 [degF] Dr. Nellie Rome MD Work Phone: [facility] 09-15-2024 12:45-0400 Body weight 95.[address] Nellie Rome MD Work Phone: [facility] 09-15-2024 12:45-0400 Diastolic blood pressure 76 mm[Hg] Dr. Nellie Rome MD Work Phone: [facility] 09-15-2024 12:45-0400 Heart rate 72 /min Dr. Nellie Rome MD Work Phone: [facility] 09-15-2024 12:45-0400 Respiratory rate 18 /min Dr. Nellie Rome MD Work Phone: [facility] 09-15-2024 12:45-0400 SaO2% (BldA) [Mass fraction] 97 % Dr. Nellie Rome MD Work Phone: [facility] 09-15-2024 12:45-0400 Systolic blood pressure 147 mm[Hg] Dr. Nellie Rome MD Work Phone: [facility] 05-28-2024 08:06-0400 Body mass index (BMI) [Ratio] 40 kg/m2 Dr. Nellie Rome MD Work Phone: [facility] 05-28-2024 08:06-0400 Body temperature 97.4 [degF] Dr. Nellie Rome MD Work Phone: [facility] 05-28-2024 08:06-0400 Body weight 99.[address] Nellie Rome MD Work Phone: [facility] 05-28-2024 08:06-0400 Diastolic blood pressure 76 mm[Hg] Dr. Nellie Rome MD Work Phone: [facility] 05-28-2024 08:06-0400 Heart rate 70 /min Dr. Nellie Rome MD Work Phone: [facility] 05-28-2024 08:06-0400 Respiratory rate 20 /min Dr. Nellie Rome MD Work Phone: [facility] 05-28-2024 08:06-0400 SaO2% (BldA) [Mass fraction] 97 % Dr. Nellie Rome MD Work Phone: [facility] 05-28-2024 08:06-0400 Systolic blood pressure 131 mm[Hg] Dr. Nellie Rome MD Work Phone: [facility] 05-23-2023 06:34-0400 Body height 157.[address] Nellie Rome Work Phone: [facility] 05-23-2023 06:34-0400 Body mass index (BMI) [Ratio] 41 kg/m2 Dr. Nellie Rome Work Phone: [facility] 05-23-2023 06:34-0400 Body temperature 97.3 [degF] Dr. Nellie Rome Work Phone: [facility] 05-23-2023 06:34-0400 Body weight 101.[address] Nellie Rome Work Phone: [facility] 05-23-2023 06:34-0400 Diastolic blood pressure 83 mm[Hg] Dr. Nellie Rome Work Phone: [facility] 05-23-2023 06:34-0400 Heart rate 67 /min Dr. Nellie Rome Work Phone: [facility] 05-23-2023 06:34-0400 Respiratory rate 18 /min Dr. Nellie Rome Work Phone: [facility] 05-23-2023 06:34-0400 SaO2% (BldA) [Mass fraction] 97 % Dr. Nellie Rome Work Phone: [facility] 05-23-2023 06:34-0400 Systolic blood pressure 141 mm[Hg] Dr. Nellie Rome Work Phone: [facility] 02-23-2022 11:08-0500 Body height 157.[address] Nellie Rome Work Phone: [facility] 02-23-2022 11:08-0500 Body mass index (BMI) [Ratio] 40.6 kg/m2 Dr. Nellie Rome Work Phone: [facility] 02-23-2022 11:08-0500 Body temperature 98.2 [degF] Dr. Nellie Rome Work Phone: [facility] 02-23-2022 11:08-0500 Body weight 100.[address] Nellie Rome Work Phone: [facility] 02-23-2022 11:08-0500 Diastolic blood pressure 79 mm[Hg] Dr. Nellie Rome Work Phone: [facility] 02-23-2022 11:08-0500 Heart rate 79 /min Dr. Nellie Rome Work Phone: [facility] 02-23-2022 11:08-0500 Respiratory rate 18 /min Dr. Nellie Rome Work Phone: [facility] 02-23-2022 11:08-0500 SaO2% (BldA) [Mass fraction] 69 % Dr. Nellie Rome Work Phone: [facility] 02-23-2022 11:08-0500 Systolic blood pressure 135 mm[Hg] Dr. Nellie Rome Work Phone: [facility] 10-24-2021 12:46-0400 Body weight 97.[address] Nellie Rome Work Phone: [facility] Work Phone: 10-13-2021 10:53-0400 Diastolic blood pressure 56 mm[Hg] Dr. Nellie Rome Work Phone: [facility] Work Phone: 10-13-2021 10:53-0400 Systolic blood pressure 125 mm[Hg] Dr. Nellie Rome Work Phone: [facility] Work Phone: 10-13-2021 09:25-0400 Body temperature 98.4 [degF] Dr. Nellie Rome Work Phone: [facility] Work Phone: 10-13-2021 09:25-0400 Heart rate 72 /min Dr. Nellie Rome Work Phone: [facility] Work Phone: 10-13-2021 09:25-0400 Respiratory rate 16 /min Dr. Nellie Rome Work Phone: [facility] Work Phone: 10-13-2021 09:25-0400 SaO2% (BldA) [Mass fraction] 97 % Dr. Nellie Rome Work Phone: [facility] Work Phone: 10-12-2021 15:17-0400 Body height 157.[address] Nellie Rome Work Phone: [facility] Work Phone: 10-12-2021 15:17-0400 Body weight [address] Nellie Rome Work Phone: [facility] Work Phone: 10-11-2021 13:45-0400 Inhaled oxygen flow rate 4 L/min Dr. Nellie Rome Work Phone: [facility] Work Phone: 10-11-2021 06:05-0400 Body mass index (BMI) [Ratio] 39.1 kg/m2 Dr. Nellie Rome Work Phone: [facility] Work Phone: 09-19-2021 14:42-0400 Body mass index (BMI) [Ratio] 37.7 kg/m2 Dr. Nellie Rome Work Phone: [facility] Work Phone: 09-19-2021 14:42-0400 Body temperature 97.9 [degF] Dr. Nellie Rome Work Phone: [facility] Work Phone: 09-19-2021 14:42-0400 Body weight 96.[address] Nellie Rome Work Phone: [facility] Work Phone: 09-19-2021 14:42-0400 Diastolic blood pressure 69 mm[Hg] Dr. Nellie Rome Work Phone: [facility] Work Phone: 09-19-2021 14:42-0400 Heart rate 82 /min Dr. Nellie Rome Work Phone: [facility] Work Phone: 09-19-2021 14:42-0400 Respiratory rate 16 /min Dr. Nellie Rome Work Phone: [facility] Work Phone: 09-19-2021 14:42-0400 SaO2% (BldA) [Mass fraction] 98 % Dr. Nellie Rome Work Phone: [facility] Work Phone: 09-19-2021 14:42-0400 Systolic blood pressure 112 mm[Hg] Dr. Nellie Rome Work Phone: [facility] Work Phone: 09-13-2021 12:30-0400 Diastolic blood pressure 63 mm[Hg] Dr. Nellie Rome Work Phone: [facility] Work Phone: 09-13-2021 12:30-0400 Systolic blood pressure 133 mm[Hg] Dr. Nellie Rome Work Phone: [facility] Work Phone: 09-13-2021 11:35-0400 Body temperature 97.7 [degF] Dr. Nellie Rome Work Phone: [facility] Work Phone: 09-13-2021 11:35-0400 Heart rate 58 /min Dr. Nellie Rome Work Phone: [facility] Work Phone: 09-13-2021 11:35-0400 Respiratory rate 16 /min Dr. Nellie Rome Work Phone: [facility] Work Phone: 09-13-2021 11:35-0400 SaO2% (BldA) [Mass fraction] 100 % Dr. Nellie Rome Work Phone: [facility] Work Phone: 09-13-2021 09:41-0400 Body height 160.[address] Nellie Rome Work Phone: [facility] Work Phone: 09-13-2021 09:41-0400 Body mass index (BMI) [Ratio] 37 kg/m2 Dr. Nellie Rome Work Phone: [facility] Work Phone: 09-13-2021 09:41-0400 Body weight [address] Nellie Rome Work Phone: [facility] Work Phone: 09-07-2021 13:26-0400 Body mass index (BMI) [Ratio] 38.7 kg/m2 Dr. Nellie Rome Work Phone: [facility] Work Phone: 09-07-2021 13:26-0400 Body temperature 97.3 [degF] Dr. Nellie Rome Work Phone: [facility] Work Phone: 09-07-2021 13:26-0400 Body weight 99.[address] Nellie Rome Work Phone: [facility] Work Phone: 09-07-2021 13:26-0400 Diastolic blood pressure 72 mm[Hg] Dr. Nellie Rome Work Phone: [facility] Work Phone: 09-07-2021 13:26-0400 Heart rate 77 /min Dr. Nellie Rome Work Phone: [facility] Work Phone: 09-07-2021 13:26-0400 Respiratory rate 18 /min Dr. Nellie Rome Work Phone: [facility] Work Phone: 09-07-2021 13:26-0400 SaO2% (BldA) [Mass fraction] 98 % Dr. Nellie Rome Work Phone: [facility] Work Phone: 09-07-2021 13:26-0400 Systolic blood pressure 117 mm[Hg] Dr. Nellie Rome Work Phone: [facility] Work Phone: 07-04-2021 11:18-0400 Body height 160.[address] Nellie Rome Work Phone: [facility] Work Phone: 07-04-2021 11:18-0400 Body mass index (BMI) [Ratio] 39.9 kg/m2 Dr. Nellie Rome Work Phone: [facility] Work Phone: 07-04-2021 11:18-0400 Body temperature 97.4 [degF] Dr. Nellie Rome Work Phone: [facility] Work Phone: 07-04-2021 11:18-0400 Body weight 102.[address] Nellie Rome Work Phone: [facility] Work Phone: 07-04-2021 11:18-0400 Diastolic blood pressure 77 mm[Hg] Dr. Nellie Rome Work Phone: [facility] Work Phone: 07-04-2021 11:18-0400 Heart rate 67 /min Dr. Nellie Rome Work Phone: [facility] Work Phone: 07-04-2021 11:18-0400 Respiratory rate 16 /min Dr. Nellie Rome Work Phone: [facility] Work Phone: 07-04-2021 11:18-0400 SaO2% (BldA) [Mass fraction] 95 % Dr. Nellie Rome Work Phone: [facility] Work Phone: 07-04-2021 11:18-0400 Systolic blood pressure 126 mm[Hg] Dr. Nellie Rome Work Phone: [facility] Work Phone: Encounters Encounter Date Encounter Type Care Provider Facility Start: 12-15-2024 ambulatory Jeremiah Franco Facility :[facility] Start: 12-08-2024 End: 12-08-[address] Jeremiah Franco MD -[facility] Work Phone: Start: 12-08-2024 End: 12-08-2024 ambulatory Nellie Rome Facility:[facility] Start: 12-02-2024 End: 12-02-2024 Patient encounter procedure Maggi MARTINI -[facility] Work Phone: Start: 12-02-2024 End: 12-02-[address] Nellie Rome MD Work Phone: [facility] Start: 11-27-2024 End: 11-27-[address] Harrison Schneider MD -[facility] Work Phone: Start: 11-27-2024 End: 11-27-[address] Nellie Rome MD Work Phone: [facility] Start: 11-24-2024 End: 11-24-[address] Nellie Rome MD Work Phone: -Nuclear Medicine [facility] Start: 11-24-2024 End: 11-24-[address] Harrison Schneider MD -Nuclear Medicine [facility] Work Phone: Start: 11-24-2024 End: 11-24-2024 ambulatory Nellie Rome Facility:[facility] Start: 11-21-[address] Marcos Littlejohn on [facility] Start: 11-21-2024 End: 11-21-[address] Nellie Rome MD Work Phone: -Cat Scan [facility] Start: 11-21-2024 End: 11-21-[address] Harrison Schneider MD -Cat Scan [facility] Work Phone: Start: 11-21-2024 End: 11-21-2024 ambulatory Nellie Mahendra Facility:[facility] Start: 11-17-2024 End: 11-17-[address] Marcos Givens DO -[facility] Work Phone: Start: 11-17-2024 End: 11-17-[address] Nellie Rome MD Work Phone: [facility] Start: 11-11-[address] Marcos Littlejohn on DO -Radiation Oncology Start: 11-11-2024 End: 11-11-[address] Harrison Schneider MD -[facility] Work Phone: Start: 11-11-2024 End: 11-11-[address] Nellie Rome MD Work Phone: -[facility] Start: 10-30-2024 End: 10-30-[address] Jeremiah Franco MD -[facility] Work Phone: Start: 10-30-2024 End: 10-30-[address] Nellie Rome MD Work Phone: -[facility] Start: 10-20-2024 End: 10-20-[address] Nellie Rome MD Work Phone: -Laboratory Start: 10-20-2024 End: 10-20-[address] Nellie Rome MD -Laboratory Work Phone: Start: 10-20-2024 End: 10-20-2024 ambulatory Nellie Rome Facility:[facility] Start: 10-14-2024 End: 10-14-[address] Jeremiah Franco MD -[facility] Work Phone: Start: 10-14-2024 End: 10-14-[address] Nellie Rome MD Work Phone: -[facility] Start: 10-07-2024 ambulatory Jeremiah Franco Facility :[facility] Start: 10-07-2024 Non-patient / Non-visit Dr. Jeremiah Franco MD -[facility] Start: 10-07-2024 End: 10-07-2024 Admission to same day surgery center Dr. Jeremiah Franco MD -[facility] Start: 10-07-2024 End: 10-07-[address] Nellie Rome MD Work Phone: -[facility] Start: 10-01-2024 End: 10-01-[address] Jeremiah Franco MD -[facility] Work Phone: Start: 10-01-2024 End: 10-01-[address] Nellie Rome MD Work Phone: -[facility] Start: 09-26-2024 End: 09-26-[address] Jeremiah Franco MD -[facility] Work Phone: Start: 09-26-2024 End: 09-26-[address] Nellie Rome MD Work Phone: -[facility] Start: 09-15-2024 End: 09-15-[address] Jeremiah Franco MD -[facility] Work Phone: Start: 09-15-2024 End: 09-15-[address] Nellie Rome MD Work Phone: [facility] Start: 09-15-2024 End: 09-15-2024 ambulatory Jeremiah Franco Facility:[facility] Start: 08-29-2024 End: 08-29-[address] Nellie Rome MD Work Phone: [facility] Work Phone: Start: 08-29-2024 End: 08-29-[address] Nellie Rome MD -[facility] Work Phone: Start: 08-29-2024 End: 08-29-2024 ambulatory Nellie Rome Facility:[facility] Start: 08-25-2024 End: 08-25-[address] Nellie Rome MD Work Phone: [facility] Work Phone: Start: 08-25-2024 End: 08-25-[address] Nellie Rome MD -Outpatient [facility] Work Phone: Start: 08-25-2024 End: 08-25-2024 ambulatory Nellie Rome Facility:[facility] Start: 06-23-2024 End: 06-23-[address] Nellie Rome MD Work Phone: [facility] Work Phone: Start: 06-23-2024 End: 06-23-[address] Oswaldo Jones MD -Cat Scan, [facility] Work Phone: Start: 06-23-2024 End: 06-23-2024 ambulatory Oswaldo Jones Facility:[facility] Start: 05-28-2024 End: 05-28-2024 Patient encounter procedure Rani Clemons NP-C -[facility] Work Phone: Start: 05-28-2024 End: 05-28-2024 ambulatory Nellie Mitom Facility:[facility] Start: 05-13-2024 ambulatory Oswaldo Jones Faci lity:[facility] Start: 04-03-2024 Encounter for genera l adult medical examination without abnormal findings Nellie [facility] Start: 03-07-2024 End: 03-07-[address] Nellie Rome MD -Laboratory Work Phone: Start: 03-07-2024 End: 03-07-2024 ambulatory [facility] Facility:[facility] Start: 02-19-2024 End: 02-[facility] Start: 06-29-2023 End: 06-29-[address] Nellie Rome Work Phone: [facility] Work Phone: Start: 06-29-2023 End: 06-29-[address] Nellie Rome Work Phone: [facility]-Sleep Lab Work Phone: Start: 06-05-2023 End: 06-05-[address] Nellie Rome Work Phone: [facility] Work Phone: Start: 06-05-2023 End: 06-05-[address] Nellie Rome Work Phone: [facility]-Outpatient Breast Imaging Work Phone: Start: 06-01-2023 End: 06-01-[address] Nellie Rome Work Phone: [facility] Work Phone: Start: 06-01-2023 End: 06-01-[address] Nellie Rome Work Phone: [facility]-Sleep Lab Work Phone: Start: 05-23-2023 End: 05-23-[address] Nellie Rome Work Phone: [facility]-P[facility] Medicine [facility] Work Phone: Start: 05-18-2023 End: 05-18-2023 ambulatory [facility] Work Phone: Start: 05-18-2023 End: 05-18-2023 [facility] encounter [facility] Start: 02-14-2023 End: 02-14-2023 ambulatory [facility] Work Phone: Start: 02-14-2023 End: 02-14-2023 Patient encounter procedure [facility]-Laboratory Work Phone: Start: 10-30-2022 End: 10-30-2022 ambulatory [facility] Work Phone: Start: 10-30-2022 End: 10-30-2022 [facility] Start: 05-04-2022 End: 05-04-[address] Nellie Rome Work Phone: [facility] Work Phone: Start: 05-04-2022 End: 05-04-[address] Nellie Rome Work Phone: [facility]-Physical Therapy Start: 04-13-[address] Alessandra Rome Work Phone: [facility]-Physical Therapy Start: 04-04-2022 End: 04-04-[address] Nellie Rome Work Phone: [facility] Work Phone: Start: 04-04-2022 End: 04-04-[address] Nellie Rome Work Phone: [facility] Start: 03-30-[address] Alessandra Rome Work Phone: [facility]-Physical Therapy Start: 03-24-2022 End: 03-24-[address] Nellie Rome Work Phone: [facility] Work Phone: Start: 03-24-2022 End: 03-24-[address] Nellie Rome Work Phone: [facility]-Outpatient Breast Imaging Start: 03-23-[address] Alessandra Rome Work Phone: [facility]-Physical Therapy Start: 03-17-2022 End: 03-17-[address] Nellie Rome Work Phone: [facility] Work Phone: Start: 03-17-2022 End: 03-17-[address] Nellie Rome Work Phone: [facility] Start: 02-23-2022 End: 02-23-[address] Nellie Rome Work Phone: [facility]-Pulmonary Medicine [facility] Start: 01-05-2022 End: 01-05-[address] Nellie Rome Work Phone: [facility] Work Phone: Start: 01-05-2022 End: 01-05-[address] Nellie Rome Work Phone: [facility]-Sleep Lab Start: 12-01-2021 End: 12-01-[address] Nellie Rome Work Phone: [facility] Work Phone: Start: 12-01-2021 End: 12-01-[address] Nellie Rome Work Phone: [facility]-Laboratory Start: 10-24-2021 End: 10-24-[address] Nelile Rome Work Phone: [facility] Start: 10-13-2021 Non-patient / Non-visit Dr. Dieter Rome Work Phone: [facility] Start: 10-12-2021 Non-patient / Non-visit Dr. Dieter Rome Work Phone: [facility] Start: 10-11-2021 Non-patient / Non-visit Dr. Dieter Rome Work Phone: [facility] Start: 10-11-2021 End: 10-13-2021 Evaluation and management of inpatient Dr. Nellie Rome Work Phone: [facility]-Medical Surgical 3 Start: 09-19-2021 End: 09-19-[address] Nellie Rome Work Phone: [facility] Start: 09-13-2021 Non-patient / Non-visit Dr. Dieter Rome Work Phone: [facility] Start: 09-13-2021 End: 09-13-2021 Admission to same day surgery center Dr. Nellie Rome Work Phone: [facility]-Endoscopy Start: 09-08-2021 End: 09-08-[address] Nellie Rome Work Phone: [facility] Start: 09-08-2021 End: 09-13-2021 Non-patient / Non-visit Dr. Nellie Rome Work Phone: [facility] Start: 09-07-2021 End: 09-07-[address] Nellie Rome Work Phone: [facility] Start: 09-01-2021 End: 09-01-[address] Nellie Rome Work Phone: [facility]-Laboratory Start: 07-04-2021 End: 07-04-[address] Nellie Rome Work Phone: [facility]-Pulmonary Medicine [facility] Procedures Date Procedure Procedure Detail Performing Clinician Start: 11-24-2024 Radionuclide whole b britni bone study Dr. Nellie Rome MD Work Phone: Start: 11-21-2024 CT of thorax, abdome n and pelvis with contrast Dr. Nellie Rome MD Work Phone: Start: 11-11-[address] Nellie [...] Treatment Date Care Activity Detail Author Start: 12-08-2024 End: 12-08-2024 Patient encounter procedure Breast cancer, right breast -[facility] Work Phone: Start: 12-02-2024 End: 12-02-2024 Patient encounter procedure Encounter for education -[facility] Work Phone: Start: 11-11-2024 CBC W Auto Differential panel - Blood [facility] Start: 11-11-2024 Comprehensive metabolic 2000 panel - Serum or Plasma [facility] Start: 11-11-2024 [facility] Start: 10-07-2024 Patient discharge [facility] Start: 10-07-2024 Anesthesia radical/modified radical breast ANESTH SURGERY OF BREAST [facility] Start: 10-07-2024 Biopsy of axillary lymph node BIOPSY/REMOVAL LYMPH NODES [facility] Start: 10-07-2024 Bx/exc lymph node open deep axillary node BIOPSY/REMOVAL LYMPH NODES [facility] Start: 10-07-2024 Lumpectomy of right breast PARTIAL MASTECTOMY [facility] Start: 10-07-2024 Mastectomy partial PARTIAL MASTECTOMY [facility] Start: 10-07-2024 Perq breast loc device placemt 1st [facility] gdnce PERQ DEV BREAST [address] [place] [address] Start: 10-13-2021 Patient discharge [facility] Work Phone: Start: 10-12-2021 Introduction of urinary catheter [facility] Work Phone: Start: 10-12-2021 Measuring intake and output [facility] Work Phone: Start: 10-12-2021 Measuring intake and output [facility] Work Phone: Start: 10-12-2021 Removal of urinary catheter [facility] Work Phone: Start: 10-12-2021 [facility] Work Phone: Start: 10-12-2021 Measuring intake and output [facility] Work Phone: Start: 10-11-2021 Measuring intake and output [facility] Work Phone: Start: 10-11-2021 Following clinical pathway protocol [facility] Work Phone: Start: 10-11-2021 Ambulation therapy management [facility] Work Phone: Start: 10-11-2021 Application of intermittent pneumatic compression device [facility] Work Phone: Start: 10-11-2021 Catheterization of vein [facility] Work Phone: Start: 10-11-2021 Continuous pulse oximetry [facility] Work Phone: Start: 10-11-2021 Elevation of head of bed [facility] Work Phone: Start: 10-11-2021 Incentive spirometry [facility] Work Phone: Start: 10-11-2021 Notification of physician [facility] Work Phone: Start: 10-11-2021 Oxygen therapy [facility] Work Phone: Start: 10-11-2021 Patient education [facility] Work Phone: Start: 10-11-2021 Procedures relating to eating and drinking [facility] Work Phone: Start: 10-11-2021 Taking patient vital signs [facility] Work Phone: Start: 10-11-2021 Wound care [facility] Work Phone: Start: 10-11-2021 [facility] Work Phone: Start: 10-11-2021 Introduction of urinary catheter [facility] Work Phone: Start: 10-11-2021 Measuring intake and output [facility] Work Phone: Start: 10-11-2021 Admission procedure [facility] Work Phone: Start: 09-13-2021 Colonoscopy w/biopsy single/multiple COLONOSCOPY AND BIOPSY [facility] Work Phone: Start: 09-13-2021 Colsc flx with directed submucosal njx any sbst COLONOSCOPY SUBMUCOUS NJX [facility] Work Phone: Start: 09-13-2021 Egd transoral biopsy single/multiple EGD BIOPSY SINGLE/MULTIPLE [facility] Work Phone: Start: 09-13-2021 Patient discharge [facility] Work Phone: Alanine aminotransfe rase [Enzymatic activity/volume] in Serum or Plasma [facility] Albumin [Mass/volume ] in Serum or Plasma [facility] Alkaline phosphatase [Enzymatic activity/volume] in Serum or Plasma [facility] Anion gap in Serum o r Plasma [facility] Bilirubin, total measurement [facility] BUN/Creatinine ratio [facility] Calcium [Mass/volume ] in Serum or Plasma [facility] Carbon dioxide, tota l [Moles/volume] in Central venous blood [facility] Creatinine [Mass/vol ume] in Serum or Plasma [facility] CT Abdomen and Pelvi s W contrast IV [facility] Erythrocyte mean corpuscular volume determination [facility] Glucose [Mass/volume ] in Serum or Plasma [facility] Hematocrit [Volume Fraction] of Blood [facility] Hemoglobin [Mass/vol ume] in Blood [facility] Leukocytes [#/volume ] in Blood [facility] Mean corpuscular hem oglobin concentration determination [facility] Mean corpuscular hem oglobin determination [facility] Measurement of renal function [facility] Neutrophil count [facility] Neutrophil percent differential count [facility] NM Whole body Bone Views [facility] Patient referral [facility] Work Phone: Platelets [#/volume] in Blood [facility] Potassium measurement [facility] Red blood cell count [facility] Red cell distributio n width determination [facility] Serum chloride measurement [facility] Sodium measurement [facility] Total protein measurement [facility] Urea nitrogen [Mass/ volume] in Serum or Plasma [facility] Work Phone: Payers Date Payer Category Payer Self-pay [id number] 2023 Medicare [id number] 2023 Unknown [id number] Private Health Insurance [facility] [id number] Unknown [id number] 2.16.840.1.735886.3.579.2.4 62 Unknown [id number] 2.16.840.1.411986.3.579.2.4 62 Unknown [id number] 2.16.840.1.704311.3.579.2.4 62 Unknown [id number] 2.16.840.1.428058.3.579.2.4 62 Unknown [id number] 2.16.840.1.057576.3.579.2.4 62 Unknown [id number] 2.16.840.1.184270.3.579.2.4 62 Unknown [id number] 2.16.840.1.048400.3.579.2.4 62 Unknown [id number] 2.16.840.1.997190.3.579.2.4 62 Unknown [id number] 2.16.840.1.775336.3.579.2.4 62 Unknown [id number] 2.16.840.1.596565.3.579.2.4 62 Unknown [id number] 2.16.840.1.688383.3.579.2.4 62 Unknown [id number] 2.16.840.1.563949.3.579.2.4 62 Unknown [id number] 2.16.840.1.435069.3.579.2.4 62 Unknown [id number] 2.16.840.1.651997.3.579.2.4 62 Unknown [id number] 2.16.840.1.125697.3.579.2.4 62 Unknown [id number] 2.16.840.1.617962.3.579.2.4 62 Unknown [id number] 2.16.840.1.771839.3.579.2.4 62 Unknown [id number] 2.16.840.1.356939.3.579.2.4 62 Unknown [id number] 2.16.840.1.688263.3.579.2.4 62 Unknown [id number] 2.16.840.1.461255.3.579.2.4 62 Unknown [id number] 2.16.840.1.757545.3.579.2.4 62 Unknown [id number] 2.16.840.1.162861.3.579.2.4 62 Unknown [id number] 2.16.840.1.356466.3.579.2.4 62 Unknown [id number] 2.16.840.1.837477.3.579.2.4 62 Unknown [id number] 2.16.840.1.170302.3.579.2.4 62 Social History Date Type Detail Facility Start: 07-04-2021 End: 05-23-2023 Tobacco smoking status HIIS Unknown if ever smoked [facility] Start: 1955 Sex Assigned At Female [facility] Start: 05-23-2023 End: 10-02-2024 Tobacco smoking status NHIS Never smoked tobacco (finding) [facility] Start: 06-27-2024 Sex Female (finding) [facility] Sex Female [facility] Medical Equipment Procedure Code Equipment Code Equipment [...] JOSE FDA Start: 02-09-2021 Robot-assisted simple nephrectomy CLIP,HEMRAKEL GARCIA FDA Start: 02-09-2021 Robot-assisted simple nephrectomy CLIP,ELICIA GARCIA FDA Start: 02-09-2021 Robot-assisted simple nephrectomy CLIP,HEMRAKEL GARCIA FDA Start: 02-09-2021 CLIP,ELICIA GARCIA FDA Start: 10-11-2021 CLIP,ELICIA GARCIA FDA Start: 10-11-2021 RELOAD, SR75 SELECTABLE FDA Start: 10-11-2021 RELOAD, SR75 SELECTABLE FDA Start: 10-11-2021 RELOAD, SR75 SELECTABLE FDA Start: 10-11-2021 [id number] FDA Start: 10-11-2021 Ligation clip, synthetic polymer, non-bioabsorbable ([id number] FDA Start: 10-11-2021 CLIP,AIDEJUNE PACK JOSE FDA [...] Start: 10-11-2021 STAPLER,TX60B FDA Start: 10-11-2021 CLIP,ELICIA GARCIA FDA Start: 10-11-2021 CLIP,ELICIA PEDERSEN FDA [...] Start: 10-11-2021 STAPLER,TX60B FDA Start: 10-11-2021 CLIP,ELICIA PEDERSEN FDA Start: 10-11-2021 CLIP,ELICIA PEDERSEN FDA Start: 10-11-2021 RELOAD, SR75 SELECTABLE FDA Start: 10-11-2021 RELOAD, SR75 SELECTABLE FDA Start: 10-11-2021 RELOAD, SR75 SELECTABLE FDA Start: 10-11-2021 STAPLER,TX60B FDA Start: 10-11-2021 CLIP,ELICIA PEDERSEN FDA Start: 10-11-2021 CLIP,ELICIA PEDERSEN FDA Start: 10-11-2021 RELOAD, SR75 SELECTABLE FDA Start: 10-11-2021 RELOAD, SR75 SELECTABLE FDA Start: 10-11-2021 RELOAD, SR75 SELECTABLE FDA Start: 10-11-2021 STAPLER,TX60B FDA Start: 10-11-2021 CLIP,ELICIA PEDERSEN FDA Start: 10-11-2021 CLIP,ELICIA PEDERSEN FDA Start: 10-11-2021 RELOAD, SR75 SELECTABLE FDA Start: 10-11-2021 RELOAD, SR75 SELECTABLE FDA Start: 10-11-2021 RELOAD, SR75 SELECTABLE FDA Start: 10-11-2021 STAPLER,TX60B FDA Start: 10-11-2021 CLIP,ELICIA PEDERSEN FDA Start: [...] Start: 10-11-2021 CLIP,AIDEJUNE PEDERSEN FDA Start: 10-11-2021 CLIP,HEMRAKEL PEDERSEN FDA Start: 10-11-2021 RELOAD, SR75 SELECTABLE FDA Start: 10-11-2021 RELOAD, SR75 SELECTABLE FDA Start: 10-11-2021 RELOAD, SR75 SELECTABLE FDA Start: 10-11-2021 STAPLER,TX60B FDA Start: 10-11-2021 CLIP,ELICIA SIRENA NUVIA FDA Start: 10-11-2021 CLIP,ELICIA SIRENA NUVIA FDA Start: 10-11-2021 RELOAD, SR75 SELECTABLE FDA Start: 10-11-2021 RELOAD, SR75 SELECTABLE FDA Start: 10-11-2021 RELOAD, SR75 SELECTABLE FDA Start: 10-11-2021 STAPLER,TX60B FDA Start: 10-11-2021 CLIP,ELICIA SIRENA NUVIAJUNE FDA Start: 10-11-2021 CLIP,ELICIA PEDERSEN FDA Start: 10-11-2021 RELOAD, SR75 SELECTABLE FDA Start: 10-11-2021 RELOAD, SR75 SELECTABLE FDA Start: 10-11-2021 RELOAD, SR75 SELECTABLE FDA Start: 10-11-2021 STAPLER,TX60B FDA Start: 10-11-2021 CLIP,ELICIA SIRENA PEDERSEN FDA Start: 10-11-2021 CLIP,HEMRAKEL PEDERSEN FDA Start: 10-11-2021 RELOAD, SR75 SELECTABLE FDA Start: 10-11-2021 RELOAD, SR75 SELECTABLE FDA Start: 10-11-2021 RELOAD, SR75 SELECTABLE FDA Start: 10-11-2021 STAPLER,TX60B FDA Start: 10-11-2021 CLIP,AIDEJUNE GARCIA FDA Start: 10-11-2021 CLIP,AIDEJUNE PEDERSEN FDA Start: 10-11-2021 RELOAD, SR75 SELECTABLE FDA Start: 10-11-2021 RELOAD, SR75 SELECTABLE FDA Start: 10-11-2021 RELOAD, SR75 SELECTABLE FDA Start: 10-11-2021 STAPLER,TX60B FDA Start: 10-11-2021 CLIP,HEMMALCOLMJUNE NUVIA FDA Start: 10-11-2021 CLIP,HEMMALCOLMJUNE NUVIA FDA Start: 10-11-2021 RELOAD, SR75 SELECTABLE FDA Start: 10-11-2021 RELOAD, SR75 SELECTABLE FDA Start: 10-11-2021 RELOAD, SR75 SELECTABLE FDA Start: 10-11-2021 STAPLER,TX60B FDA Start: 10-11-2021 CLIP,HEMMALCOLMJUNE PACK NUVIA FDA Start: 10-11-2021 CLIP,HEMMALCOLMJUNE NUVIA FDA Start: 10-11-2021 RELOAD, SR75 SELECTABLE FDA Start: 10-11-2021 RELOAD, SR75 SELECTABLE FDA Start: 10-11-2021 RELOAD, SR75 SELECTABLE FDA Start: 10-11-2021 STAPLER,TX60B FDA Start: 10-11-2021 CLIP,HEMMALCOLMJUNE NUVIA FDA Start: 10-11-2021 CLIP,HEMMALCOLMJUNE SIRENA PEDERSEN FDA Start: 10-11-2021 RELOAD, SR75 SELECTABLE FDA Start: 10-11-2021 RELOAD, SR75 SELECTABLE FDA Start: 10-11-2021 RELOAD, SR75 SELECTABLE FDA Start: 10-11-2021 STAPLER,TX60B FDA Start: 10-11-2021 CLIP,HEMMALCOLMJUNE NUVIA FDA Start: 10-11-2021 CLIP,HEMMALCOLMJUNE NUVIA FDA Start: 10-11-2021 RELOAD, SR75 SELECTABLE FDA Start: 10-11-2021 RELOAD, SR75 SELECTABLE FDA Start: 10-11-2021 RELOAD, SR75 SELECTABLE FDA Start: 10-11-2021 STAPLER,TX60B FDA Start: 10-11-2021 CLIP,HEMMALCOLMJUNE NUVIA FDA Start: 10-11-2021 CLIP,HEMMALCOLMJUNE NUVIA FDA Start: 10-11-2021 RELOAD, SR75 SELECTABLE FDA Start: 10-11-2021 RELOAD, SR75 SELECTABLE FDA Start: 10-11-2021 RELOAD, SR75 SELECTABLE FDA Start: 10-11-2021 STAPLER,TX60B FDA Start: 10-11-2021 CLIP,ELICIA PEDERSEN FDA Start: [...] Start: 10-11-2021 CLIP,ELICIA PEDERSEN FDA Start: 10-11-2021 CLIP,HEMRAKEL PEDERSEN FDA Start: 10-11-2021 RELOAD, SR75 SELECTABLE FDA Start: 10-11-2021 RELOAD, SR75 SELECTABLE FDA Start: 10-11-2021 RELOAD, SR75 SELECTABLE FDA Start: 10-11-2021 STAPLER,TX60B FDA Start: 10-11-2021 CLIP,ELICIA SIRENA PEDERSEN FDA Start: 10-11-2021 CLIP,HEMRAKEL NUIVA FDA Start: 10-11-2021 RELOAD, SR75 SELECTABLE FDA Start: 10-11-2021 RELOAD, SR75 SELECTABLE FDA Start: 10-11-2021 RELOAD, SR75 SELECTABLE FDA Start: 10-11-2021 STAPKELLETX60B FDA Start: 10-11-2021 CLIP,ELICIA PEDERSEN FDA Start: 10-11-2021 CLIP,ELICIA GARCIA FDA Start: [...] 10-11-2021 CLIP,ELICIA GARCIA FDA Start: 10-11-2021 CLIP,ELICIA PEDERSEN FDA Start: 10-11-2021 RELOAD, SR75 SELECTABLE FDA Start: 10-11-2021 RELOAD, SR75 SELECTABLE FDA Start: 10-11-2021 RELOAD, SR75 SELECTABLE FDA Start: 10-11-2021 STAPLER,TX60B FDA Start: 10-11-2021 CLIP,ELICIA GARCIA FDA Start: 10-11-2021 CLIP,ELICIA PEDERSEN FDA Start: 10-11-2021 RELOAD, SR75 SELECTABLE FDA Start: 10-11-2021 RELOAD, SR75 SELECTABLE FDA Start: 10-11-2021 RELOAD, SR75 SELECTABLE FDA Start: 10-11-2021 STAPKELLE,TX60B FDA Start: 10-11-2021 CLIP,ELICIA PEDERSEN FDA Start: 10-11-2021 CLIP,ELICIA PEDERSEN FDA Start: 10-11-2021 RELOAD, SR75 SELECTABLE FDA Start: 10-11-2021 RELOAD, SR75 SELECTABLE FDA Start: 10-11-2021 RELOAD, SR75 SELECTABLE FDA Start: 10-11-2021 LUTHERKELLETX60B FDA Start: 10-11-2021 ELICIA POLANCO LG FDA Start: 10-11-2021 ELICIA POLANCO LG FDA Start: 10-11-2021 RELOAD, SR75 SELECTABLE FDA Start: 10-11-2021 RELOAD, SR75 SELECTABLE FDA Start: 10-11-2021 RELOAD, SR75 SELECTABLE FDA Start: 10-11-2021 RAIZA ALANIZ60B FDA Start: 10-11-2021 Goals Date Patient Goal Desired Activity /State Functional Status Date Assessment Result Facility 10-13-2021 Functional status Ambulates [facility] Work Phone: 10-12-2021 Functional status Tolerates Activity Well [facility] Work Phone: Mental Status Date Assessment Result Facility 11-21-2024 Cognitive function Voice/Name [facility] Work Phone: 10-07-2024 Cognitive function Voice/Name [facility] Work Phone: 10-12-2021 Cognitive function Voice/Name [facility] Work Phone: 09-13-2021 Cognitive function Level Of Consciousness Drowsy [facility] Work Phone: 09-13-2021 Cognitive function Patient Orien tation Person;Place;Time [facility] Work Phone: Clinical Notes 05-04-2022 to 12-08-2024 Note Date & Type Note Facility 12-08-2024 Progress note [facility] 12-08-2024 Progress note Note Date/Time December 08, 2024 3:08pm [facility] [address] [place] [address] OFFICE VISIT Date of Service: 12/08/24 MR#: [id number] Acct: [id number] Name: NORI RODRIGUEZ Rep #: [id number] : 1955 Provider: Dr. Naeem Franco MD Age/Sex: 69/F Location: [facility] Status: Signed Intake Vital Signs 12/02/24 08:58 12/08/24 14:41 Height 5 ft 3 in 5 ft 3 in Weight: 206 lb 206 lb 8 oz BMI 36.5 36.6 BP 143/77 H 161/83 H Blood Pressure Location Lt brachial Rt brachial Position Sitting Sitting Respiration 18 18 Pulse 78 67 Pulse Source Monitor Monitor Temp 98.2 F 97.8 F Temp Source Temporal Pulse Oximetry (%) 96 98 Oxygen Delivery Method room air room air Intake Visit Reasons: PORT PLACEMENT Chief Complaint: port placedment Accompanied by: Sister Allergies acetazolamide (From Diamox Sequels) Adverse Reaction (Verified 12/08/24 14:42) DEPRESSION duloxetine (From Cymbalta) Adverse Reaction (Verified 12/08/24 14:42) DEPRESSION tetracycline Adverse Reaction (Verified 12/08/24 14:42) DEPRESSION Medications ?Medication ?Instructions ?Recorded ?Confirmed ?Type omega-3 fatty acids 1,000 mg 2,000 mg PO QDAY SUPPLEME NT 06/26/17 12/08/24 History capsule (Fish Oil Concentrate) acetaminophen 325 mg tablet 650 mg PO Q4H PRN Pain 12/08/24 History (Tylenol) magnesium citrate 125 mg capsule 250 mg PO DAILY 05/2212/08/24 History cholecalciferol (vitamin D3) 25 25 mcg PO QDAY 5 12/08/24 History mcg (1,000 unit) capsule glltxngi-eofr-rtdh 8 mg-folic 400 1 tab PO QDAY 12/08/24 History mcg-K 50 mcg-lutein 300 mcg tablet (Multivitamin Women 50 Plus) lisinopril 20 mg tablet 20 mg PO QDAY 11/11/2412/08 History nystatin 100,000 unit/mL oral 1 ml PO TID 11/11/24 History suspension dexamethasone 4 mg tablet 8 mg (2 x 4 mg) PO .COMPLEX #12 12/05/24 12/08/24 Rx tabs lidocaine-prilocaine 2.5 %-2.5 % 1 applic topical ONCE PRN port 12/05/24 12/08/24 Rx topical cream access 30 days #30 grams ondansetron 8 mg disintegrating 8 mg PO Q8H PRN nausea and 12/05/24 12/08/24 Rx tablet vomiting #30 tabs prochlorperazine maleate 10 mg 10 mg PO Q6H PRN nausea and 12/05/24 12/08/24 Rx tablet vomiting #30 tabs Have you fallen in the past year?: No PFSH Medical History Encounter for education [facility] lymph node metastasis present Cancer of [...] lump Family History Mother Colon cancer Hypertension Cancer pancreatic Father Diabetes Sister Cancer lymphoma Social History household members: spouse housing: house Smoking Status: Never smoker alcohol intake: never substance use type: does not use HPI HPI HPI: The patient is a 69-year-old female with recently discovered right breast cancer. Her treating oncology team is recommending chemotherapy. As a result, she is being seen today to be evaluated for possible Mediport placement. ROS General General: Yes weight change and [...] weakness and No other Exam Const General: cooperative, comfortable and well developed [facility] Head: normal to inspection Eyes General: appearance normal, both eyes and all related structures Neck Neck: normal visual inspection Assessment and Plan Assessment and Plan (1) Breast cancer, right breast: Status: Acute Qualifiers: Breast location: central portion of breast Estrogen receptor status: positive Patient sex: female Qualified Code(s): C50.111 - Malignant neoplasm of central portion of right female breast; Z17.0 - Estrogen receptor positive status [ER+] Plan: The patient is a 69-year-old female with right breast cancer. I have offered her Mediport placement. We discussed the details of the planned procedure including the risk benefits and alternatives. She wishes to proceed. This will be scheduled in a timely manner. Coding Level of Care Code Global Post Op Diagnoses Malignant neoplasm of central portion of right breast in female, estrogen receptor positive C50.111; Z17.0 Breast location: central portion of breast Estrogen receptor status: positive Patient sex: female Clinical Quality Measures Falls Risk Screening/Assistive Devices Have you fallen in the past year?: No 12/08/24 1542 <Electronically signed by Jeremiah sanz MD> Date _ Jeremiah Franco MD [facility] Signature: Date (if applicable) CC: Dr. Nellie Rome MD ~ [facility] Work Phone: 1(687) 905-447909-23-2025 [facility] [address] [place] [address] OFFICE VISIT Date of Service: 12/02/24 0855 MR#: [id number] Acct: [id number] Name: MICHAELNORIDEEPTI MATHIS Rep #: [id number] : 1955 From: Maggi Perez AUTOMATIC PINSETTER MECHANIC AUTOMATIC PINSETTER MECHANIC-C Age/Sex: 69/F Location[place] [facility] Status: Signed HPI Subjective Date of Service 12/02/24 Chief Complaint Breast cancer History of Present [...] - ER: positive (100%, strong intensity). - DC: positive (75% invasive/100% in situ, variable intermediate-strong intensity). - [id number]: equivocal (2+) - DAY1LBDP: Not amplified (final) Note: IHC for Ecadherin, CK5/6, and p40 support the histologic impression. B. Lymph node, right, axilla, core biopsy: - No metastatic carcinoma seen. October 07, 2024 right breast lumpectomy with sentinel lymph node biopsy and right axillary lymph nodedissection: FROZEN SECTION DIAGNOSIS B. Right breast, sentinel [...] FISH: NA Ki67: 40% Specimen in which ER/DC/HER2 performed: [id number] A pTNM: pT2 pN2a Additional findings: fibrocystic mastopathy November 21, 2024 CT chest abdomen and pelvis initial staging: IMPRESSION: No change in small retroperitoneal lymph nodes compared to CT abdomen and [id number]/23/2024. Otherwise, no evidence of metastatic disease in the chest, abdomen and pelvis. November 24, 2024 bone scan: IMPRESSION: Degenerative changes. No evidence of bone metastasis. Status post right nephrectomy. Interval History The patient is presenting to clinic accompanied by spouse and daughter in law for an education visit to discuss adjuvant TC. Reports healing well without complaints at this time. [facility] Medical History (Updated 12/02/24 @ 09:08 by Maggi Archuleta NP, AUTOMATIC PINSETTER MECHANIC-C) Encounter for education Regional lymph node metastasis present Cancer of [...] lump Family History Mother Colon cancer Hypertension Cancer pancreatic Father Diabetes Sister Cancer lymphoma Social History household members: spouse housing: house Smoking Status: Never smoker alcohol intake: never substance use type: does not use ROS ROS Narrative Negative except as documented in the interval HPI Intake Vital Signs 11/27/24 12:10 12/02/24 08:57 12/02/24 08:58 Height 5 ft 3 in 5 ft 3 in 5 ft 3 in Weight: 202 lb 206 lb BMI 35.7 36.5 BP 119/75 143/77 H Blood Pressure Location Lt brachial Lt brachial Position Sitting Sitting Respiration 18 18 Pulse 84 78 Pulse Source Monitor Monitor Temp 98.0 F 98.2 F Temperature Source Temporal Artery Temporal Artery Pulse Oximetry (%) 94 96 Oxygen Delivery Method room air room air Intake Is patient in pain?: No Allergies acetazolamide (From Diamox Sequels) Adverse Reaction (Verified 12/02/24 08:58) DEPRESSION duloxetine (From Cymbalta) Adverse Reaction (Verified 12/02/24 08:58) DEPRESSION tetracycline Adverse Reaction (Verified 12/02/24 08:58) DEPRESSION Medications ?Medication ?Instructions ?Recorded ?Confirmed ?Type omega-3 fatty acids 1,000 mg 2,000 mg PO QDAY SUPPLEME NT 06/26/17 12/02/24 History capsule (Fish Oil Concentrate) acetaminophen 325 mg tablet 650 mg PO Q4H PRN Pain 12/02/24 History (Tylenol) magnesium citrate 125 mg capsule 250 mg PO DAILY 05/2212/02/24 History cholecalciferol (vitamin D3) 25 25 mcg PO QDAY 5 12/02/24 History mcg (1,000 unit) capsule rvfhghqn-side-rzih 8 mg-folic 400 1 tab PO QDAY 12/02/24 History mcg-K 50 mcg-lutein 300 mcg tablet (Multivitamin Women 50 Plus) lisinopril 20 mg tablet 20 mg PO QDAY 11/11/2412/02 History nystatin 100,000 unit/mL oral 1 ml PO TID 11/11/24 History suspension Have you fallen in the past year?: No Central Venous Access Central Venous Access: No Exam Physical Exam Narrative ECOG 1 Const alert, oriented x3 and no apparent distress Nutritional Appearance: morbidly obese HEENT Face and Sinus: normal facial exam Psych mental status grossly normal Attitude: withdrawn and agitated Mood & Affect: tearful Attention / Concentration: concentration grossly impaired and other unable to verbalize back many of the teaching points throughout the discussion Coding Level of Care Code Off vis,est,level 5 Exam Problem Focused Diagnoses Infiltrating ductal carcinoma of right breast C50.911 Laterality: right Regional lymph node metastasis present C77.9 Encounter for education Z71.9 Assessment and Plan Assessment and Plan (1) Invasive ductal carcinoma of breast: Status: Acute Qualifiers: Laterality: right Qualified Code(s): C50.911 - Malignant neoplasm of unspecified site of right female breast (2) Regional lymph node metastasis present: Status: Acute (3) Encounter for education: Status: Acute Plan 69-year-old female with invasive ductal carcinoma of the right breast status postlumpectomy and axillary sentinel lymph node biopsy and axillary dissection , stage IIIA (T2, N2, MX). Cancer is grade 3, with DCIS extensive high nuclear grade with comedonecrosis with close (less than 1 mm) margin superior after margin reexcision. Patient has metastatic invasive cancer in 4 out of 6 axillary lymph nodes dissected. Cancer is ER positive (95%, strong) DC positive (60% intermediate) HER2 1+ by IHC not amplified by FISH and with Ki-67 40%. Staging CT scan chest abdomen and pelvis and bone scan in November 2024 showed no evidence to suggest distant metastatic disease. Chronic comorbid conditions: Hypertension, morbid obesity, status post right radical nephrectomy for renal cell cancer in 2020, status post right hemicolectomy (pathology showed ulceration and submucosal lipomatous lesion), status post cholecystectomy and appendectomy. Recommendations: Based on NCCN guidelines and up-to-date review of treatment of locoregional breastcancer with intent to cure recommend: 1. systemic adjuvant chemotherapy with docetaxel and Cytoxan 4 cycles 20-day cycle length with supportive treatment to be followed by at least 5 preferably 10 years of adjuvant hormonal therapy The patient has been thoroughly educated to risks/benefits associated with docetaxel, cyclophosphamide, pegfilgrastim. Specifically, she has been educatedto potential side effects, recommendations for symptom management, and circumstances in which she should contact provider immediately, such as the development of any signs/symptoms of infection inclusive of temperature > 100.4. Encouraged to go directly to ED should fever occur outside normal clinic hours. She has been provided written educational information and after hours contact information and we reviewed prescriptions for prn antiemetics/EMLA cream. A significant amount of time was allotted for questions. All the patient's concerns were addressed to her satisfaction and she would like a few days to discuss with family. Tentatively, she will make our office aware of her decision by , 12/04/2024. 2. Adjuvant radiation therapy to follow adjuvant chemotherapy. 3. Patient has close superior margin less than 1 mm with DCIS after reexcision. Recommend adjuvant radiation therapy I spent 65 minutes today reviewing labs, records and history. Time includes coordination of care and patient education, as well as documenting clinical information. Clinical Quality Measures Falls Risk Screening/Assistive Devices Have you fallen in the past year?: No 12/02/24 1017 h AUTOMATIC PINSETTER MECHANIC AUTOMATIC PINSETTER MECHANIC-C> Date _ Maggi Archuleta AUTOMATIC PINSETTER MECHANIC AUTOMATIC PINSETTER MECHANIC-C Cosigner Signature: Date (if applicable) CC: Dr. Nellie Rome MD ~ [facility]09-18-2025 [facility] Cancer [address] [address] OFFICE VISIT Date of Service: 11/27/24 1207 MR#: [id number] Acct: [id number] Name: NORI RODRIGUEZ Rep #: [id number] : 1955 From: Harrison guillen MD Age/Sex: 69/F [place] [facility] [place] Status: Signed HPI Subjective Date of Service 11/27/24 Chief Complaint Breast cancer History of Present [...] - ER: positive (100%, strong intensity). - DC: positive (75% invasive/100% in situ, variable intermediate-strong intensity). - LGR2XYS: equivocal (2+) - FOO4KVPS: Not amplified (final) Note: IHC for Ecadherin, CK5/6, and p40 support the histologic impression. B. Lymph node, right, axilla, core biopsy: - No metastatic carcinoma seen. October 07, 2024 right breast lumpectomy with sentinel lymph node biopsy and right axillary lymph nodedissection: FROZEN SECTION DIAGNOSIS B. Right breast, sentinel [...] FISH: NA Ki67: 40% Specimen in which ER/DC/HER2 performed: [id number] A pTNM: pT2 pN2a Additional findings: fibrocystic mastopathy November 21, 2024 CT chest abdomen and pelvis initial staging: IMPRESSION: No change in small retroperitoneal lymph nodes compared to CT abdomen and [id number]/23/2024. Otherwise, no evidence of metastatic disease in the chest, abdomen and pelvis. November 24, 2024 bone scan: IMPRESSION: Degenerative changes. No evidence of bone metastasis. Status post right nephrectomy. PFSH Medical History Regional lymph node metastasis [...] lump Family History Mother Colon cancer Hypertension Cancer pancreatic Father Diabetes Sister Cancer lymphoma Social History household members: spouse housing: house Smoking Status: Never smoker alcohol intake: never substance use type: does not use ROS ROS Narrative See November 11, 2024 Intake Vital Signs 11/11/24 11:46 11/21/24 07:53 11/27/24 12:09 11/27/24 12:10 Height 5 ft 3 in 5 ft 3 in 5 ft 3 in 5 ft 3 in Weight: 91.626 kg BMI 35.7 BP 119/75 Blood Pressure Location Lt brachial Position Sitting Respiration 18 Pulse 84 Pulse Source Monitor Temp 98.0 F Temperature Source Temporal Artery Pulse Oximetry (%) 94 Oxygen Delivery Method room air Intake Is patient in pain?: No Allergies acetazolamide (From Diamox Sequels) Adverse Reaction (Verified 11/27/24 12:10) DEPRESSION duloxetine (From Cymbalta) Adverse Reaction (Verified 11/27/24 12:10) DEPRESSION tetracycline Adverse Reaction (Verified 11/27/24 12:10) DEPRESSION Medications ?Medication ?Instructions ?Recorded ?Confirmed ?Type omega-3 fatty acids 1,000 mg 2,000 mg PO QDAY SUPPLEME NT 06/26/17 11/27/24 History capsule (Fish Oil Concentrate) acetaminophen 325 mg tablet 650 mg PO Q4H PRN Pain 11/27/24 History (Tylenol) magnesium citrate 125 mg capsule 250 mg PO DAILY 05/2211/27/24 History cholecalciferol (vitamin D3) 25 25 mcg PO QDAY 5 11/27/24 History mcg (1,000 unit) capsule tdscnjge-gjmg-pcmy 8 mg-folic 400 1 tab PO QDAY 11/27/24 History mcg-K 50 mcg-lutein 300 mcg tablet (Multivitamin Women 50 Plus) lisinopril 20 mg tablet 20 mg PO QDAY 11/11/2411/27 History nystatin 100,000 unit/mL oral 1 ml PO TID 11/11/24 History suspension Have you fallen in the past year?: No Central Venous Access Central Venous Access: No Exam Physical Exam Narrative See November 11, 2024 Const alert, oriented x3 and no apparent distress Coding Level of Care Code Off vis,est,level 4 Exam Problem Focused Diagnoses Infiltrating ductal carcinoma of right breast C50.911 Laterality: right Regional lymph node metastasis present C77.9 Assessment and Plan Assessment and Plan (1) Invasive ductal carcinoma of breast: Status: Acute Qualifiers: Laterality: right Qualified Code(s): C50.911 - Malignant neoplasm of unspecified site of right female breast (2) Regional lymph node metastasis present: Status: Acute Plan 69-year-old female with invasive ductal carcinoma of the right breast status postlumpectomy and axillary sentinel lymph node biopsy and axillary dissection , stage IIIA (T2, N2, MX). Cancer is grade 3, with DCIS extensive high nuclear grade with comedonecrosis with close (less than 1 mm) margin superior after margin reexcision. Patient has metastatic invasive cancer in 4 out of 6 axillary lymph nodes dissected. Cancer is ER positive (95%, strong) DC positive (60% intermediate) HER2 1+ by IHC not amplified by FISH and with Ki-67 40%. Staging CT scan chest abdomen and pelvis and bone scan in November 2024 showed no evidence to suggest distant metastatic disease. Chronic comorbid conditions: Hypertension, morbid obesity, status post right radical nephrectomy for renal cell cancer in 2020, status post right hemicolectomy (pathology showed ulceration and submucosal lipomatous lesion), status post cholecystectomy and appendectomy. Recommendations: Based on NCCN guidelines and up-to-date review of treatment of locoregional breastcancer with intent to cure recommend: 1. systemic adjuvant chemotherapy with docetaxel and Cytoxan 4 cycles 20-day cycle length with supportive treatment to be followed by at least 5 preferably 10 years of adjuvant hormonal therapy. 2. Adjuvant radiation therapy to follow adjuvant chemotherapy. 3. Patient has close superior margin less than 1 mm with DCIS after reexcision. Recommend adjuvant radiation therapy 4. Schedule chemotherapy teaching session after which the patient will make a decision whether to consent to adjuvant chemotherapy or not. Patient was seen with her and her [id number]. Impression and plan discussed with the patient and family Impression and plan were also discussed with Drs. Givens and Salvador. Harrison Schneider MD Air Twist Operator, [facility] Divisions of Medical Oncology & Hematology Department of Internal Medicine [place] [id number] This note was generated using a voice recognition system software. Although itwas reviewed by the author prior to finalization, it may still contain incorrectwords, spelling, and punctuation that were not noted when reviewing prior to saving. If a clinically significant typo or inaccurately typed phrase is noted, please notify the author. Clinical Quality Measures Falls Risk Screening/Assistive Devices Have you fallen in the past year?: No 11/27/24 1235 eva UMAÑA> Date _ Harrison Schneider MD Cosigner Signature: Date (if applicable) CC: Dr. Nellie Rome MD; Dr. Marcos Givens DO; Dr. Jeremiah Franco MD ~ [facility]09-18-2025 Nuclear medicine Diagnostic study note [facility] Imaging Services [address] [place] [id number] Bone Scan Whole Body MR#: [id number] Acct: [id number] Name: NORI RODRIGUEZ Rep #: [id number] : 1955 From: Uri Perdomo MD PCP: Dr. Nellie Rome MD Status: REG CLI Study:Bone Scan Whole Body Date of Exam: 11/24/24 Exam# [id number] Ordering Dr: Harrison Schneider MD PROCEDURE: BONE SCAN WHOLE BODY 11/24/2024 REASON FOR EXAM: STAGING BREAST CANCER Status post right nephrectomy for renal carcinoma. TECHNIQUE: Procedure Code: NMBO Modality: NM Procedure: BONE SCAN WHOLE BODY Whole-body bone scan with anterior and posterior views. Imaging at 3.5 hours. RADIOPHARMACEUTICAL: 26 mCi Technetium-99m MDP IV COMPARISON: None FINDINGS: Bones: Increased radiopharmaceutical uptake seen in the lower lumbar spine as well as in the medialcompartments of both knee joints suggestive of degenerative changes. No evidence of bony metastasis. Kidneys: Status post right nephrectomy. NM/Bone Scan Whole Body IMPRESSION: Degenerative changes. No evidence of bone metastasis. Status post right nephrectomy. Reading Location: [facility] CC: Dr. Nellie Rome MD; Dr. Harrison Schneider MD ~ Parts Room Clerk: Signed [facility]09-13-2025 Radiology Diagnostic study note [facility] Imaging Services [address] [place] [address] CT Chest, Abd, Pel w/Contrast MR#: [id number] Acct: [id number] Name: NORI RODRIGUEZ Rep #: [id number] : 1955 From: Rod Lino MD PCP: Dr. Nellie Rome MD Status: REG CLI Study:CT Chest, Abd, Pel w/Contrast Date of E xam: 11/21/24 Exam# [id number] Ordering Dr: Harrison Schneider MD PROCEDURE: CT CHEST, ABD, PEL W/CONTRAST 11/21/2024 REASON FOR EXAM: STAGING BREAST CANCER IV CONTRAST ONLY TECHNIQUE: Chest, abdomen and pelvis CT with intravenous contrast. Coronal and Sagittal reconstruction series were provided. One or more dose reduction techniques were used (e.g., Automated exposure control, adjustment of the mA and/or kV according to patient size, use of iterative reconstruction technique. PATIENT PREPARATION: Per protocol CONTRAST: Isovue 370 VOLUME: 96mL 20 gauge IV RADIATION DOSE SUMMARY: CTDlvol: 18.86 mGy DLP: 1885.0 mGycm COMPARISON: None. FINDINGS: CT CHEST: Hardware: None. Mediastinum and lymph nodes: Left thyroid goiter. No mediastinal lymphadenopathy. No axillary lymphadenopathy Heart and Vasculature: No aortic aneurysm. Atherosclerotic calcifications. Lungs and Airways: Clear. The airways are patent. Pleura: No pleural effusion. No pneumothorax. Bones: No acute bony abnormalities. Soft tissues: Inversion of the right breast nipple and soft tissue thickening can be consistent with known breast cancer. CT ABDOMEN/PELVIS: Liver: Unremarkable. Gallbladder: The gallbladder is likely surgically absent. Spleen: Unremarkable. Pancreas: Unremarkable. Adrenals: Unremarkable. Kidneys: The right kidney is surgically resected. No left hydronephrosis. No nephrolithiasis. Bladder: Unremarkable. Reproductive Organs: Unremarkable. Bowel: Surgical sutures of the right colon. Extensive sigmoid colon diverticulosis with no evidenceof acute diverticulitis. No bowel wall thickening. Appendix: No evidence of acute appendicitis. Lymph nodes: Small retroperitoneal lymph nodes with the largest is left para- aortic measuring 1.3 x0.8 mm. Vasculature: Vascular atherosclerotic calcifications. Peritoneum / Retroperitoneum: No free air or free fluid. Bones: Multilevel degenerate changes of the lumbar spine. No acute or pathologic bony abnormalities. CT/CT Chest, Abd, Pel w/Contrast IMPRESSION: No change in small retroperitoneal lymph nodes compared to CT abdomen and krlbzt7406/23/2024. Otherwise, no evidence of metastatic disease in the chest, abdomen and pelvis. Reading Location: [facility] CC: Dr. Nellie Rome MD; Dr. Harrison Schneider MD ~ Parts Room Clerk: Signed [facility]07-29-2025 Consult note Author Mike Walton [facility] Note Date/Time October 07, 2024 3:54 pm [facility] Medical Records Department [address] [place] [address] Anesthesia Postop Eval I 10/07/24 1553 MR#: [id number] Acct: [id number] Name: NORI RODRIGUEZ Rep #:[id number] : 1955 69 From: Mike Walton CRNA PCP: Dr. Nellie Rome MD Status:REG SDC Y Race: C Location: [place] [address] Anesthesia: Postop Eval I Current Vital Signs [...] Anesthesia document: Postop Eval 1 completed: Yes 10/07/241553 <Electronically signed by Mike rosario CRNA> Date _ Mike Walton CRNA Cosigner Signature: Date CC: ~ Signed [facility] Work Phone: 1(504) 182-446607-29-2025 Discharge summary Author Jeremiah Franco [facility] Note Date/Time October 07, 2024 3:50 pm [facility] Medical Records Department [address] [facility] [address] Instructions for Home/Discharge Instructions 10/07/24 1537 MR#: [id number] Acct: [id number] Name: NORI RODRIGUEZ Rep #:[id number] : 1955 69 From: Jeremiah Franco MD PCP: Dr. Nellie Rome MD Status:REG [facility] Discharge Instructions Diet Discharge Diet: Light diet [...] Care Provider: Nellie Rome Instructions Print Language: Canadian Discharge Orders/Prescriptions Prescriptions: New oxycodone 5 mg [...] CC: Dr. Nellie Rome MD ~ Signed [facility] Work Phone: 1(653) 882-851507-29-2025 Consult note [facility] Medical Records Department [address] [place] [place] [address] Anesthesia Postop Eval I 10/07/24 1553 MR#: [id number] Acct: [id number] Name: NORI RODRIGUEZ Rep #:[id number] : 1955 69 From: Mike Walton CRNA PCP: Dr. Nellie Rome MD Status:REG SDC Y Race: C Location: [place] [address] Anesthesia: Postop Eval I Current Vital Signs [...] Eval 1 completed: Yes 10/07/24 1554 y FITTER MECHANIC> Date _ Mike Walton FITTER MECHANIC Cosigner Signature: Date CC: ~ Signed [facility]07-29-2025 Discharge summary [facility] Medical Records Department [address] [facility] [address] Instructions for Home/Discharge Instructions 10/07/24 1537 MR#: [id number] Acct: [id number] Name: NORI RODRIGUEZ Rep #:[id number] : 1955 69 From: Jeremiah Franco MD PCP: Dr. Nellie Rome MD Status:REG [facility] Discharge Instructions Diet Discharge Diet: Light diet [...] Care Provider: Nellie Rome Instructions Print Language: Canadian Discharge Orders/Prescriptions Prescriptions: New oxycodone 5 mg [...] CC: Dr. Nellie Rome MD ~ Signed [facility]07-29-2025 History and physical note Author Jeremiah Franco [facility] Note Date/Time October 07, 2024 12:5 3pm [facility] Medical Records Department [address] [place] [address] History & Physical Exam 10/07/24 1251 MR#: [id number] Acct: [id number] Name: NORI RODRIGUEZ Rep #:[id number] : 1955 69 From: Jeremiah Franco MD PCP: Dr. Nellie Rome MD Status:[facility] Location: [address] HPI - General General Date of Admission: 10/07/24 Date of Service: 10/07/24 Chief Complaint: RIGHT BREAST CANCER HPI Narrative NORI RODRIGUEZ, is a 69 F who presents for lumpectomy and SLN biopsy for invasive breast CA [facility] Medical History History of echocardiogram Fibromyalgia Abnormal [...] 5 10/06/24 History mcg (1,000 unit) capsule vyrutphc-iyff-dhda 8 mg-folic 400 1 tab PO QDAY [...] no apparent distress Results Imaging Radiology Impression [place] Node 10/07/24 10:50 IMPRESSION: Subdermal injection above the right nipple for sentinel node imaging. Reading Location: [id number] Assessment & Plan Assessment/Plan (1) Invasive ductal carcinoma of breast: PLAN: Plan right breast lumpectomy abd SLN bx today 10/07/24 1253 <Electronically signed by Jeremiah Franco MD> Cosigner Signature (if applicable): CC: Dr. Nellie Rome MD; Dr. Jeremiah Franco MD~ Signed [facility] Work Phone: 1(359) 651-541107-29-2025 Consult note Author Keaton Murphy [facility] Note Date/Time October 07, 2024 11:2 0am [facility] Medical Records Department [address] [place] [address] Pre-Anesthesia Evaluation 10/07/24 1107 MR#: [id number] Acct: [id number] Name: NORI RODRIGUEZ Rep #:[id number] : 1955 69 From: Keaton Murphy MD PCP: Dr. Nellie Rome MD Status:REG SDC Y Race: C Location: [place] [address] ASA Classification* ASA Classification ASA Classification: 3 [...] 11:17 10/12/21 TSH 0.631 uIU/mL (0.358-3.740) 02/19/24 13:02/09 COAG PT 13.7 SECONDS (11.7-14.9) 10/06/21 11:44 Pre-Assessment Diagnosis/Proposed Procedure Planned Operative Procedure(s): RIGHT BREAST STEREOWIRE LOCALIZED LUMPECTOMY WITH SENTINEL LYMPH NODE BIOPSY, POSSIBLE NODE DISSECTION Anesthesia History Anesthesia History - quality system manager: Anesthesia History - quality system manager Hx Hospitalization No 10/02/24 09:28 Any Problems [...] sips of water?: No PONV PONV - quality system manager: PONV - quality system manager Female Yes 10/02/24 09:28 HX of Motion [...] 10/07/24 10:26 Respiratory Assessment Respiratory Assessment - quality system manager: Respiratory Tract Infection Hx - quality system manager Hx Respiratory Tract Infection No 10/02/24 09:28 STOP Sleep Apnea STOP Sleep Apnea - quality system manager: STOP Sleep Apnea - quality system manager Hx Hypertension Yes: CONTROLLED WITH MEDS 10/02/24 [...] Tobacco Use History Tobacco Use History - quality system manager: Tobacco Use History - quality system manager Tobacco Use Smoking Status Never smoker 10/02/24 09:28 Hx Tobacco Use No 10/02/24 09:28 Years Smoking Packs Smoked per Day Smoking Cessation Date was within the last 15 years Hx Smoking Cessation Date Hx Smoking Cessation Counseling Hematologic Medial History Hematologic Hx - quality system manager: Hematologic Medical Hx - blanket cutter hand Hx of Blood Transfusion No 10/02/24 09:28 [...] confused, unrespo /Reproduction History /Reproductive History - quality system manager: /Reproductive Hx- quality system manager Hx Now Gestational Age (in weeks): EDC: [...] 5 10/06/24 History mcg (1,000 unit) capsule wqczvkka-ybxp-kkms 8 mg-folic 400 1 tab PO QDAY [...] MD Cosigner Signature: Date CC: ~ Signed [facility] Work Phone: 1(876) 357-559407-29-2025 History and physical note [facility] Medical Records Department [address] [place] [address] History & Physical Exam 10/07/24 1251 MR#: [id number] Acct: [id number] Name: NORI RODRIGUEZ Rep #:[id number] : 1955 69 From: Jeremiah Franco MD PCP: Dr. Nellie Rome MD Status:[facility] Location: [address] HPI - General General Date of Admission: 10/07/24 Date of Service: 10/07/24 Chief Complaint: RIGHT BREAST CANCER HPI Narrative NORI RODRIGUEZ, is a 69 F who presents for lumpectomy and SLN biopsy for invasive breast [place] [facility] Medical History History of echocardiogram Fibromyalgia Abnormal [...] 5 10/06/24 History mcg (1,000 unit) capsule xswddjhd-ctvx-llai 8 mg-folic 400 1 tab PO QDAY [...] no apparent distress Results Imaging Radiology Impression [place] Node 10/07/24 10:50 IMPRESSION: Subdermal injection above the right nipple for sentinel node imaging. Reading Location: [id number] Assessment & Plan Assessment/Plan (1) Invasive ductal carcinoma of breast: PLAN: Plan right breast lumpectomy abd SLN bx today 10/07/24 1253 Cosigner Signature (if applicable): CC: Dr. Nellie Rome MD; Dr. Jeremiah Franco MD~ Signed [facility]07-29-2025 [facility] Medical Records Department [address] [place] [address] History Physical Exam 10/07/24 1251 MR#: [id number] Acct: [id number] Name: NORI RODRIGUEZ Rep #: [id number] : 1955 69 From: Jeremiah Franco MD PCP: Dr. Nellie Rome MD Status:[facility] Location: [place] [address] HPI - General General Date of Admission: 10/07/24 Date of Service: 10/07/24 Chief Complaint: RIGHT BREAST CANCER HPI Narrative NORI RODRIGUEZ, is a 69 F who presents for lumpectomy and SLN biopsy for invasive breast [place] [facility] Medical History History of echocardiogram Fibromyalgia Abnormal [...] 10/06/24 H istory mcg (1,000 unit) capsule iefevplm-xehe-tipb 8 mg-folic 400 1 tab PO QDAY [...] no apparent distress Results Imaging Radiology Impression [place] Node 10/07/24 10:50 IMPRESSION: Subdermal injection above the right nipple for sentinel node imaging. Reading Location: [id number] Assessment Plan Assessment/Plan (1) Invasive ductal carcinoma of breast: PLAN: Plan right breast lumpectomy abd SLN bx today 10/07/24 1253 Cosigner Signature (if applicable): CC: Dr. Nellie Rome MD; Dr. Jeremiah Franco [facility] Nuclear medicine Diagnostic study note [facility] Imaging Services [address] [place] [address] Lymph Node Injection Only MR#: [id number] Acct: [id number] Name: NORI RODRIGUEZ Rep #: [id number] : 1955 F 69 From: Uri Perdomo MD PCP: Dr. Nellie Rome MD Status: [facility] Study:Lymph Node Injection Only Date of Exam: 10/07/24 Exam# [id number] Ordering Dr: [facility] prat[facility] Franco MD PROCEDURE: [...] nipple for sentinel node imaging. Reading Location: [facility] CC: Dr. Nellie Rome MD; Dr. Jeremiah Franco MD ~ Parts Room Clerk: Signed [facility]07-29-2025 Consult note [facility] Medical Records Department [address] [place] [address] Pre-Anesthesia Evaluation 10/07/24 1107 MR#: [id number] Acct: [id number] Name: NORI RODRIGUEZ Rep #:[id number] : 1955 69 From: Keaton Murphy MD PCP: Dr. 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: Anesthesia History - quality system manager Hx Hospitalization No 10/02/24 09:28 Any Problems [...] sips of water?: No PONV PONV - quality system manager: PONV - quality system manager Female Yes 10/02/24 09:28 HX of Motion [...] 10/07/24 10:26 Respiratory Assessment Respiratory Assessment - quality system manager: Respiratory Tract Infection Hx - quality system manager Hx Respiratory Tract Infection No 10/02/24 09:28 STOP Sleep Apnea STOP Sleep Apnea - quality system manager: STOP Sleep Apnea - quality system manager Hx Hypertension Yes: CONTROLLED WITH MEDS 10/02/24 [...] Tobacco Use History Tobacco Use History - quality system manager: Tobacco Use History - quality system manager Tobacco Use Smoking Status Never smoker 10/02/24 09:28 Hx Tobacco Use No 10/02/24 09:28 Years Smoking Packs Smoked per Day Smoking Cessation Date was within the last 15 years Hx Smoking Cessation Date Hx Smoking Cessation Counseling Hematologic Medial History Hematologic Hx - quality system manager: 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 [place] [address] OFFICE VISIT Date of Service: 10/01/24 MR#: [id number] Acct: [id number] Name: NORI RODRIGUEZ Rep #: [id number] : 1955 Provider: Dr. Naeem Franco MD Age/Sex: 69/F Location: [facility] Status: Signed Intake Vital Signs 09/26/24 13:25 [...] 5 10/01/24 History mcg (1,000 unit) capsule yhojjavw-nbsd-wvnl 8 mg-folic 400 1 tab PO QDAY [...] other Exam Const General: cooperative and comfortable [facility] Head: normal to inspection Chest Other: Examination [...] the past year?: No 10/01/24 1413 k MD> Date _ [facility] Signature: Date (if applicable) CC: ~ [facility] [place]07-23-2025 Progress note Author Jeremiah Franco [facility] [place] Note Date/Time October 01, 2024 2:13 pm [facility] [address] [place] [address]. [address] [place] [address] OFFICE VISIT Date of Service: 10/01/24 MR#: [id number] Acct: [id number] Name: NORI RODRIGUEZ Rep #: [id number] : 1955 Provider: Dr. Naeem Franco MD Age/Sex: 69/F Location: [facility] Status: Signed Intake Vital Signs 09/26/24 13:25 [...] 5 10/01/24 History mcg (1,000 unit) capsule uzdwgpvg-iaao-pryy 8 mg-folic 400 1 tab PO QDAY [...] fallen in the past year?: No 10/01/24 1416 <Electronically signed by Jeremiah sanz MD> Date _ Jeremiah Franco MD Cosigner Signature: Date (if applicable) CC: ~ [facility] [place] Work Phone: 1(262) 626-673107-07-2025 Evaluation note* Diagnosis Onset Date Resolution Status Admit Date Abnormal ultrasound of breast acute September 15, 2024 12:24pm Invasive ductal carcinoma of breast acute September 26, 2024 1:10pm [facility] [place] Work Phone: [phone]) 642-542407-07-2025 Evaluation note* Diagnosis Onset Date Resolution Status Admit Date Abnormal ultrasound of breast acute September 15, 2024 12:24pm Invasive ductal carcinoma of breast acute September 26, 2024 1:10pm Invasive ductal carcinoma of breast acute October 01, 2024 1:41pm [facility] [place] Work Phone: 1(217) 652-839207-07-2025 Evaluation note* Diagnosis Onset Date Resolution Status Admit Date Abnormal ultrasound of breast acute September 15, 2024 12:24pm Invasive ductal carcinoma of breast acute September 26, 2024 1:10pm Invasive ductal carcinoma of breast acute October 01, 2024 1:41pm Invasive ductal carcinoma of breast acute October 07, 2024 9:58am [facility] Work Phone: 1(604) 292-461107-07-2025 Evaluation note* Diagnosis Onset Date Resolution Status Admit Date Abnormal ultrasound of breast acute September 15, 2024 12:24pm Invasive ductal carcinoma of breast acute September 26, 2024 1:10pm Invasive ductal carcinoma of breast acute October 01, 2024 1:41pm Invasive ductal carcinoma of breast acute October 07, 2024 9:58am S/P lumpectomy, right breast acute October 14, 2024 1:54pm [facility] Work Phone: 1(644) 545-970207-07-2025 Evaluation note* Diagnosis Onset Date Resolution Status [...] Invasive ductal carcinoma of breast acute November 11, 025 11:28am Regional lymph node metastasis present acute November 11:28am [facility] [employer] Work Phone: [phone]) 150-311707-07-2025 Evaluation note* Diagnosis Onset Date Resolution Status [...] lymph node metastasis present acute November 11:28am Breast cancer, right breast acute November 17, 2024 10:46am Regional lymph node metastasis present acute November 10:46am Invasive ductal carcinoma of breast acute November 27, 2024 12:05pm Regional lymph node metastasis present acute November 12:05pm [facility] Work Phone: 1([phone]) 174-161307-07-2025 Evaluation note* Diagnosis Onset Date Resolution Status [...] Invasive ductal carcinoma of breast acute November 11, 11:28am Regional lymph node metastasis present acute November 11:28am Breast cancer, right breast acute November 17, 2024 10:46am Regional lymph node metastasis present acute November 10:46am Invasive ductal carcinoma of breast acute November 27, 2024 12:05pm Regional lymph node metastasis present acute November 12:05pm Encounter for education [facility] 2024 8:52am Invasive ductal carcinoma of breast acute December 02, 2024 8:52am Regional lymph node metastasis present acute November 8:52am Breast cancer, right breast acute December 08, 2024 2:32pm [facility] Work Phone: 1(245) 126-968606-20-2025 Radiology Diagnostic study note [facility] Imaging Services [address] [place] [address] Breast Complete Unilateral MR#: [id number] Acct: [id number] Name: NORI RODRIGUEZ Rep #: [id number] : 1955 F 69 From: Jo Thorne MD PCP: Dr. Nellie Rome MD Status: REG CLI Study:Breast Complete Unilateral Date of Exam : 08/29/24 Exam# [id number] Ordering Dr: Caty Rome MD PROCEDURE: BREAST [...] 5: HIGHLY SUGGESTIVE OF MALIGNANCY Reading Location: [id number] CC: Dr. Nellie Rome MD ~ Parts Room Clerk: Signed [facility]04-15-2025 Radiology Diagnostic study note [facility] Imaging Services [address] [place], [place] [address] Abdomen/Pelvis WITH Contrast MR#: [id number] Acct: [id number] Name: NORI RODRIGUEZ Rep #: [id number] : 1955 F 69 From: Uri Perdomo MD PCP: Dr. Nellie Rome MD Status: REG CLI Study:Abdomen/Pelvis WITH Contrast Date of Ex am: 06/23/24 Exam# [id number] Ordering Dr: Audrey Jones MD PROCEDURE: ABDOMEN/PELVIS [...] No acute abnormality is seen. Reading Location: [place] [address] CC: Dr. Nellie Rome MD; Dr. Oswaldo Jones MD ~ Parts Room Clerk: Signed [facility]03-19-2025 Evaluation note* Diagnosis Onset Date Resolution Status Admit Date Obesity chronic May 28 10:51am RADU (obstructive sleep apnea) chroni c May 28, 2024 10:51am [facility] Work Phone: 1(480) 156-568303-19-2025 Evaluation note* Diagnosis Onset Date Resolution Status Admit Date Obesity chronic May 28 10:51am RADU (obstructive sleep apnea) chroni c May 28, 2024 10:51am Abnormal ultrasound of breast acute September 15, 2024 12:24pm [facility] Work Phone: 1(558) 377-165002-23-2023 Discharge summary Author Gustavo Curiel [facility] May 04, 2022 1:21pm Note Date/Time May 04, 2022 1:21pm [facility] Physical Therapy [facility] [address] [place] [address]. [address] [place] [address] / REHABILITATION SERVICES DISCHARGE SUMMARY MR#: [id number] Acct: [id number] Name: NORI RODRIGUEZ Rep #: [id number] : 1955 66 From: Gustavo Curiel DPT, OCS, CSCS Referring Dr.: Dr. Nellie Rome MD Status: REG RCR Insurance: MEDICARE PART A B [facility] It has been my pleasure to treat [...] please feel free to call me at [phone]. Thank you for the referral of thispatient. Sincerely, Gustavo Curiel, CELIAT, OCS, CSCS Balance/Gait/Functional tests - Balance/Special Test Scores Functional Gait Assessment Score: 27 % Disability: 10.0000 Lower Extremity Functional Score: 42 <Electronically signed by Gustavo Curiel DPT, OCS, CSCS> 05/04/22 1321 CC: Dr. Nellie Rome MD ~ EBG Signed [facility] Work Phone: Evaluation note* Diagnosis Onset Date Resolution Status BMI 39.0-39.9,adult acute Sleep apnea acute [facility] Work Phone: Evaluation note* Diagnosis Onset Date Resolution Status BMI 39.0-39.9,adult acute Sleep apnea acute Cholecystitis with cholelithiasis acute Epigastric abdominal pain ac creek History of diverticulitis ac creek History of renal disease acu te Lower abdominal pain acute Cholecystitis with cholelithiasis acute Epigastric abdominal pain ac creek History of diverticulitis ac creek Lower abdominal pain acute Stool bloody acute [facility] Work Phone: Evaluation note* Diagnosis Onset Date Resolution Status BMI 39.0-39.9,adult acute Sleep apnea acute Cholecystitis with cholelithiasis acute Epigastric abdominal pain ac creek History of diverticulitis ac creek History of renal disease acu te Lower abdominal pain acute Cholecystitis with cholelithiasis acute Epigastric abdominal pain ac creek History of diverticulitis ac creek Lower abdominal pain acute Stool bloody acute Cholecystitis with cholelithiasis acute Epigastric abdominal pain ac creek Lower abdominal pain acute Mass of hepatic flexure of colon acute Stool bloody acute Cholecystitis with cholelithiasis acute Mass of hepatic flexure of colon acute [facility] Work Phone: Evaluation note* Diagnosis Onset Date Resolution Status Epigastric abdominal pain ac creek History of diverticulitis ac creek History of renal disease acu te Lower abdominal pain acute Cholecystitis with cholelithiasis resolved Epigastric abdominal pain ac creek History of diverticulitis ac creek Lower abdominal pain acute Stool bloody acute Cholecystitis with cholelithiasis resolved Epigastric abdominal pain ac creek Lower abdominal pain acute Stool bloody acute Cholecystitis with cholelithiasis resolved Mass of hepatic flexure of colon resolved Cholecystitis with cholelithiasis resolved Mass of hepatic flexure of colon resolved Lipoma of colon acute Cholecystitis with cholelithiasis resolved [facility] Work Phone: Evaluation note* Diagnosis Onset Date Resolution Status Epigastric abdominal pain ac creek Lower abdominal pain acute Stool bloody acute Cholecystitis with cholelithiasis resolved Mass of hepatic flexure of colon resolved Cholecystitis with cholelithiasis resolved Mass of hepatic flexure of colon resolved Lipoma of colon acute Cholecystitis with cholelithiasis resolved [facility] Work Phone: Evaluation note* Diagnosis Onset Date Resolution Status Obesity acute RADU (obstructive sleep apnea) acute [facility] Work Phone: Evaluation noteNo assessment information available [facility] Work Phone: Evaluation note* Diagnosis Onset Date Resolution Status Obesity chronic RADU (obstructive sleep apnea) chronic [facility] Work Phone: Hospital Discharge instructionsAmbulatory Orders* Oncology Location: None Selected * Plastic surgery Location: None Selected * Radiation Oncology Location: None Selected [facility] [place] Work Phone: Progress note Author Harrison Schneider [facility] Services Note Date/Time November 27, 2024 12:35pm [facility] [place] [address] OFFICE VISIT Date of Service: 11/27/24 1207 MR#: [id number] Acct: [id number] Name: NORI RODRIGUEZ Rep #: [id number] : 1955 From: Harrison guillen MD Age/Sex: 69/F [place] [facility] [place]: Signed HPI Subjective Date of Service 11/27/24 Chief Complaint Breast cancer History of Present [...] - ER: positive (100%, strong intensity). - DC: positive (75% invasive/100% in situ, variable intermediate-strong intensity). - [id number]: equivocal (2+) - [id number]: Not amplified (final) Note: IHC for Ecadherin, [...] Designation of other margins of main specimen </=1 mm: NA Re-resection margin status (P=positive, N=negative, NA=not applicable): N DCIS (P=present, N=not identified): P Nuclear grade: high [place] necrosis (P=present, N=not identified): P Extensive intraductal component (P=present, N=not identified): P Margins of main specimen (P=positive, N=negative): P Distance to closest margin of main specimen (mm): involving/at Designation of closest margin of main specimen: lateral and anterior Designation of other margins of main specimen </=2 mm: posterior Longest span </= 2 mm to margin of main specimen (mm): 7 mm Re-resection margin status (P=positive, N=negative, NA=not applicable): [...] FISH: NA Ki67: 40% Specimen in which ER/DC/HER2 performed: [id number] A pTNM: pT2 pN2a Additional findings: fibrocystic mastopathy November 21, 2024 CT chest abdomen and pelvis initial staging: IMPRESSION: No change in small retroperitoneal lymph nodes compared to CT abdomen and hezysy9906/23/2024. Otherwise, no evidence of metastatic disease in the chest, abdomen and pelvis. November 24, 2024 bone scan: IMPRESSION: Degenerative changes. No evidence of bone metastasis. Status post right nephrectomy. [facility] Medical History Regional lymph node metastasis present [...] lump Family History Mother Colon cancer Hypertension Cancer pancreatic Father Diabetes Sister Cancer lymphoma Social History household members: spouse housing: house Smoking Status: Never smoker alcohol intake: never substance use type: does not use ROS ROS Narrative See November 11, 2024 Intake Vital Signs 11/11/24 11:46 11/21/24 07:53 11/27/24 12:09 11/27/24 12:10 Height 5 ft 3 in 5 ft 3 in 5 ft 3 in 5 ft 3 in Weight: 91.626 kg BMI 35.7 BP 119/75 Blood Pressure Location Lt brachial Position Sitting Respiration 18 Pulse 84 Pulse Source Monitor Temp 98.0 F Temperature Source Temporal Artery Pulse Oximetry (%) 94 Oxygen Delivery Method room air Intake Is patient in pain?: No Allergies acetazolamide (From Diamox Sequels) Adverse Reaction (Verified 11/27/24 12:10) DEPRESSION duloxetine (From Cymbalta) Adverse Reaction (Verified 11/27/24 12:10) DEPRESSION tetracycline Adverse Reaction (Verified 11/27/24 12:10) DEPRESSION Medications ?Medication ?Instructions ?Recorded ?Confirmed ?Type omega-3 fatty acids 1,000 mg 2,000 mg PO QDAY SUPPLEME NT 06/26/17 11/27/24 History capsule (Fish Oil Concentrate) acetaminophen 325 mg tablet 650 mg PO Q4H PRN Pain 11/27/24 History (Tylenol) magnesium citrate 125 mg capsule 250 mg PO DAILY 05/2211/27/24 History cholecalciferol (vitamin D3) 25 25 mcg PO QDAY 5 11/27/24 History mcg (1,000 unit) capsule tmntxhow-omqv-tagf 8 mg-folic 400 1 tab PO QDAY 11/27/24 History mcg-K 50 mcg-lutein 300 mcg tablet (Multivitamin Women 50 Plus) lisinopril 20 mg tablet 20 mg PO QDAY 11/11/2411/27 History nystatin 100,000 unit/mL oral 1 ml PO TID 11/11/24 History suspension Have you fallen in the past year?: No Central Venous Access Central Venous Access: No Exam Physical Exam Narrative See November 11, 2024 Const alert, oriented x3 and no apparent distress Coding Level of Care Code Off vis,est,level 4 Exam Problem Focused Diagnoses Infiltrating ductal carcinoma of right breast C50.911 Laterality: right Regional lymph node metastasis present C77.9 Assessment and Plan Assessment and Plan (1) Invasive ductal carcinoma of breast: Status: Acute Qualifiers: Laterality: right Qualified Code(s): C50.911 - Malignant neoplasm of unspecified site of right female breast (2) Regional lymph node metastasis present: Status: Acute Plan 69-year-old female with invasive ductal carcinoma of the right breast status postlumpectomy and axillary sentinel lymph node biopsy and axillary dissection , stage IIIA (T2, N2, MX). Cancer is grade 3, with DCIS extensive high nuclear grade with comedonecrosis with close (less than 1 mm) margin superior after margin reexcision. Patient has metastatic invasive cancer in 4 out of 6 axillary lymph nodes dissected. Cancer is ER positive (95%, strong) DC positive (60% intermediate) HER2 1+ by IHC not amplified by FISH and with Ki-67 40%. Staging CT scan chest abdomen and pelvis and bone scan in November 2024 showed no evidence to suggest distant metastatic disease. Chronic comorbid conditions: Hypertension, morbid obesity, status post right radical nephrectomy for renal cell cancer in 2020, status post right hemicolectomy (pathology showed ulceration and submucosal lipomatous lesion), status post cholecystectomy and appendectomy. Recommendations: Based on NCCN guidelines and up-to-date review of treatment of locoregional breast cancer with intent to cure recommend: 1. systemic adjuvant chemotherapy with docetaxel and Cytoxan 4 cycles 20-day cycle length with supportive treatment to be followed by at least 5 preferably 10 years of adjuvant hormonal therapy. 2. Adjuvant radiation therapy to follow adjuvant chemotherapy. 3. Patient has close superior margin less than 1 mm with DCIS after reexcision. Recommend adjuvant radiation therapy 4. Schedule chemotherapy teaching session after which the patient will make a decision whether to consent to adjuvant chemotherapy or not. Patient was seen with her and her nxqejshz-ui-hbk. Impression and plan discussed with the patient and family Impression and plan were also discussed with Drs. Givens and Salvador. Harrison Schneider MD Air Twist Operator, [facility] Divisions of Medical Oncology & Hematology Department of Internal Medicine [place] [address] This note was generated using a voice recognition system software. Although itwas reviewed by the author prior to finalization, it may still contain incorrectwords, spelling, and punctuation that were not noted when reviewing prior to saving. If a clinically significant typo or inaccurately typed phrase is noted, please notify the author. Clinical Quality Measures Falls Risk Screening/Assistive Devices Have you fallen in the past year?: No 11/27/24 1235 <Electronically signed by Harrison velasquze MD> Date _ Harrison Schneider MD Cosigner Signature: Date (if applicable) CC: Dr. Nellie Rome MD; Dr. Marcos Givens DO; Dr. Jeremiah Franco MD ~ [facility] [place] Work Phone: Progress note Author Maggi Archuleta [facility] [place] Note Date/Time December 02, 2024 10:04am [facility] [address] [address] OFFICE VISIT Date of Service: 12/02/24 0855 MR#: [id number] Acct: [id number] Name: NORI RODRIGUEZ Rep #: [id number] : 1955 From: Maggi Perez AUTOMATIC PINSETTER MECHANIC AUTOMATIC PINSETTER MECHANIC-C Age/Sex: 69/F [place] [facility] [place]: Signed HPI Subjective Date of Service 12/02/24 Chief Complaint Breast cancer History of Present [...] - ER: positive (100%, strong intensity). - DC: positive (75% invasive/100% in situ, variable intermediate-strong intensity). - IQW1FMP: equivocal (2+) - QWX2GESU: Not amplified (final) Note: IHC for Ecadherin, [...] excision: - Positive for macrometastasis, 12 mm (/). C. Axilla, right, contents, excision: - Three [...] Designation of other margins of main specimen </=1 mm: NA Re-resection margin status (P=positive, N=negative, NA=not applicable): N DCIS (P=present, N=not identified): P Nuclear grade: high [place] necrosis (P=present, N=not identified): P Extensive intraductal component (P=present, N=not identified): P Margins of main specimen (P=positive, N=negative): P Distance to closest margin of main specimen (mm): involving/at Designation of closest margin of main specimen: lateral and anterior Designation of other margins of main specimen </=2 mm: posterior Longest span </= 2 mm to margin of main specimen (mm): 7 mm Re-resection margin status (P=positive, N=negative, NA=not applicable): [...] FISH: NA Ki67: 40% Specimen in which ER/DC/HER2 performed: [id number] A pTNM: pT2 pN2a Additional findings: fibrocystic mastopathy November 21, 2024 CT chest abdomen and pelvis initial staging: IMPRESSION: No change in small retroperitoneal lymph nodes compared to CT abdomen and [id number]/23/2024. Otherwise, no evidence of metastatic disease in the chest, abdomen and pelvis. November 24, 2024 bone scan: IMPRESSION: Degenerative changes. No evidence of bone metastasis. Status post right nephrectomy. Interval History The patient is presenting to clinic accompanied by spouse and daughter in law for an education visit to discuss adjuvant TC. Reports healing well without complaints at this time. [facility] Medical History (Updated 12/02/24 @ 09:08 by Maggi Archuleta NP, AUTOMAT[employer]SETTER MECH[employer]IC-C) Encounter for education Regional lymph node metastasis present Cancer of [...] lump Family History Mother Colon cancer Hypertension Cancer pancreatic Father Diabetes Sister Cancer lymphoma Social History household members: spouse housing: house Smoking Status: Never smoker alcohol intake: never substance use type: does not use ROS ROS Narrative Negative except as documented in the interval HPI Intake Vital Signs 11/27/24 12:10 12/02/24 08:57 12/02/24 08:58 Height 5 ft 3 in 5 ft 3 in 5 ft 3 in Weight: 202 lb 206 lb BMI 35.7 36.5 BP 119/75 143/77 H Blood Pressure Location Lt brachial Lt brachial Position Sitting Sitting Respiration 18 18 Pulse 84 78 Pulse Source Monitor Monitor Temp 98.0 F 98.2 F Temperature Source Temporal Artery Temporal Artery Pulse Oximetry (%) 94 96 Oxygen Delivery Method room air room air Intake Is patient in pain?: No Allergies acetazolamide (From Diamox Sequels) Adverse Reaction (Verified 12/02/24 08:58) DEPRESSION duloxetine (From Cymbalta) Adverse Reaction (Verified 12/02/24 08:58) DEPRESSION tetracycline Adverse Reaction (Verified 12/02/24 08:58) DEPRESSION Medications ?Medication ?Instructions ?Recorded ?Confirmed ?Type omega-3 fatty acids 1,000 mg 2,000 mg PO QDAY SUPPLEME NT 06/26/17 12/02/24 History capsule (Fish Oil Concentrate) acetaminophen 325 mg tablet 650 mg PO Q4H PRN Pain 12/02/24 History (Tylenol) magnesium citrate 125 mg capsule 250 mg PO DAILY 05/2212/02/24 History cholecalciferol (vitamin D3) 25 25 mcg PO QDAY 5 12/02/24 History mcg (1,000 unit) capsule ufrmopir-fvik-pqcn 8 mg-folic 400 1 tab PO QDAY 12/02/24 History mcg-K 50 mcg-lutein 300 mcg tablet (Multivitamin Women 50 Plus) lisinopril 20 mg tablet 20 mg PO QDAY 11/11/2412/02 History nystatin 100,000 unit/mL oral 1 ml PO TID 11/11/24 History suspension Have you fallen in the past year?: No Central Venous Access Central Venous Access: No Exam Physical Exam Narrative ECOG 1 Const alert, oriented x3 and no apparent distress Nutritional Appearance: morbidly obese HEENT Face and Sinus: normal facial exam Psych mental status grossly normal Attitude: withdrawn and agitated Mood & Affect: tearful Attention / Concentration: concentration grossly impaired and other unable to verbalize back many of the teaching points throughout the discussion Coding Level of Care Code Off vis,est,level 5 Exam Problem Focused Diagnoses Infiltrating ductal carcinoma of right breast C50.911 Laterality: right Regional lymph node metastasis present C77.9 Encounter for education Z71.9 Assessment and Plan Assessment and Plan (1) Invasive ductal carcinoma of breast: Status: Acute Qualifiers: Laterality: right Qualified Code(s): C50.911 - Malignant neoplasm of unspecified site of right female breast (2) Regional lymph node metastasis present: Status: Acute (3) Encounter for education: Status: Acute Plan 69-year-old female with invasive ductal carcinoma of the right breast status postlumpectomy and axillary sentinel lymph node biopsy and axillary dissection , stage IIIA (T2, N2, MX). Cancer is grade 3, with DCIS extensive high nuclear grade with comedonecrosis with close (less than 1 mm) margin superior after margin reexcision. Patient has metastatic invasive cancer in 4 out of 6 axillary lymph nodes dissected. Cancer is ER positive (95%, strong) DC positive (60% intermediate) HER2 1+ by IHC not amplified by FISH and with Ki-67 40%. Staging CT scan chest abdomen and pelvis and bone scan in November 2024 showed no evidence to suggest distant metastatic disease. Chronic comorbid conditions: Hypertension, morbid obesity, status post right radical nephrectomy for renal cell cancer in 2020, status post right hemicolectomy (pathology showed ulceration and submucosal lipomatous lesion), status post cholecystectomy and appendectomy. Recommendations: Based on NCCN guidelines and up-to-date review of treatment of locoregional breast cancer with intent to cure recommend: 1. systemic adjuvant chemotherapy with docetaxel and Cytoxan 4 cycles 20-day cycle length with supportive treatment to be followed by at least 5 preferably 10 years of adjuvant hormonal therapy The patient has been thoroughly educated to risks/benefits associated with docetaxel, cyclophosphamide, pegfilgrastim. Specifically, she has been educatedto potential side effects, recommendations for symptom management, and circumstances in which she should contact provider immediately, such as the development of any signs/symptoms of infection inclusive of temperature > 100.4. Encouraged to go directly to ED should fever occur outside normal clinic hours. She has been provided written educational information and after hours contact information and we reviewed prescriptions for prn antiemetics/EMLA cream. A significant amount of time was allotted for questions. All the patient's concerns were addressed to her satisfaction and she would like a few days to discuss with family. Tentatively, she will make our office aware of her decision by , 12/04/2024. 2. Adjuvant radiation therapy to follow adjuvant chemotherapy. 3. Patient has close superior margin less than 1 mm with DCIS after reexcision. Recommend adjuvant radiation therapy I spent 65 minutes today reviewing labs, records and history. Time includes coordination of care and patient education, as well as documenting clinical information. Clinical Quality Measures Falls Risk Screening/Assistive Devices Have you fallen in the past year?: No 12/02/24 1017 <Electronically signed by Maggi stephens NP [employer]TER [employer]CH[employer]IC-C> Date _ Maggi Archuleta NP, NP-C Cosigner Signature: Date (if applicable) CC: Dr. Nellie Rome MD ~ [facility] Work Phone: Reason for referral (narrative)No reason for referral information availableWPomerene Hospital Work Phone: Chief Complaint and Reason [...] MAMM August 29, 2024 1:54 pm BIRADS September 15, 2024 12:24 pm R. BREAST [...] 12:29pm BREAST CONSULT November 17, 2024 10:46am Chief Complaint Admit Date SCREENING August 25, [...] 57am BREAST CA November 11, 2024 11:28am BREAST CONSULT November 17, 2024 10:46am Malignant neoplasm of unspecified site o f unspecif November 21, 2024 6:21am FLUIDS AFTER CT November 21, 2024 8:00am BREAST CANCER November 24, 2024 9:59am REVIEW SCANS November 27, 2024 12:05pm Reason for Visit Admit Date Abnormal ultrasound of breast September 15, 2024 12:24pm Invasive ductal carcinoma of breast September 26, 2024 1:10pm Invasive ductal carcinoma of breast October 01, 2024 1:41pm Invasive ductal carcinoma of breast October 07, 2024 9:58am S/P lumpectomy, right breast October 14, 2024 1:54pm Invasive ductal carcinoma of breast Aug2024 9:57am S/P lumpectomy, right breast October 9:57am Invasive ductal carcinoma of breast Sept 2024 11:28am Regional lymph node metastasis present 2024 11:28am Breast cancer, right breast November 10:46am Regional lymph node metastasis present S 2024 10:46am Invasive ductal carcinoma of breast Sept emb2024 12:05pm Regional lymph node metastasis present S 2024 12:05pm Chief Complaint Admit Date SCREENING August 25, [...] 57am BREAST CA November 11, 2024 11:28am BREAST CONSULT November 17, 2024 10:46am Malignant neoplasm of unspecified site o f unspecif November 21, 2024 6:21am FLUIDS AFTER CT November 21, 2024 8:00am BREAST CANCER November 24, 2024 9:59am REVIEW SCANS November 27, 2024 12:05pm CHEMO ED December 02, 2024 8:52am PORT PLACEMENT December 08, 2024 2:32pm Reason for Visit Admit Date Abnormal ultrasound of breast September 15, 2024 12:24pm Invasive ductal carcinoma of breast September 26, 2024 1:10pm Invasive ductal carcinoma of breast October 01, 2024 1:41pm Invasive ductal carcinoma of breast October 07, 2024 9:58am S/P lumpectomy, right breast October 14, 2024 1:54pm Invasive ductal carcinoma of breast 2024 9:57am S/P lumpectomy, right breast October 9:57am Invasive ductal carcinoma of breast Nov 11:28am Regional lymph node metastasis present 2024 11:28am Breast cancer, right breast November 10:46am Regional lymph node metastasis present S [facility]2024 10:46am Invasive ductal carcinoma of breast Nov 12:05pm Regional lymph node metastasis present S 2024 12:05pm Encounter for education December 02, 2024 8:52am Invasive ductal carcinoma of breast Sept ember 2024 8:52am Regional lymph node metastasis present S eptember 2024 8:52am Breast cancer, right breast December 082024 2:32pm Family History Relationship Condition Age at Onset Recorded Date/T she mother Malignant neoplasm of colon Unknown Hypertension Unknown father Diabetes mellitus Unknown Relationship Condition Age at Onset Recorded Date/T she mother Malignant neoplasm of colon Unknown Hypertension Unknown Malignant neoplasm Unknown father Diabetes mellitus Unknown sister Malignant neoplasm Unknown Advance Directives Advance Directive Response Recorded Date/ Time Living Will Yes February 09 4:39pm Power of Vice President Of Communications Yes February 09, 2021 4:39pm Advance Directive Response Recorded Date/ Time Name of Medical Power of Vice President Of Communications SPOUSE September 08, 2021 9:48am Living Will Yes September 08, 2021 9:48am Power of Vice President Of Communications Yes September 08 9:48am Advance Directive Response Recorded Date/ Time Name of Medical Power of Vice President Of Communications SPOUSE September 08, 2021 9:48am Name of Medical Power of Vice President Of Communications SPOUSE October 04, 2021 11:01am Living Will Yes October 04, 2021 11:01am Power of Vice President Of Communications Yes October 04 11:01am Advance Directive Response Recorded Date/ Time Name of Medical Power of Vice President Of Communications SPOUSE October 04, 2021 11:01am Living Will Yes October 04, 2021 11:01am Power of Vice President Of Communications Yes October 04 11:01am Advance Directive Response Recorded Date/ Time Living Will Yes October 04, 2021 10:01am Power of Vice President Of Communications Yes October 04 10:01am Advance Directive Response Recorded Date/ Time Living Will Yes October 04, 2021 11:01am Power of Vice President Of Communications Yes October 04 11:01am Advance Directive Response Recorded Date/ Time Living Will Yes October 04, 2021 11:01am Do you have a Healthcare Power of Vice President Of Communications? Yes October 04, 2021 11:01am Advance Directive Response Recorded Date/ Time Do you have a Healthcare Power of Vice President Of Communications? Yes October 02, 2024 9:28am Name of Medical Power of Vice President Of Communications ZACH- October 02, 2024 9:28am Summary Purpose Additional [...] MD Primary Care Provider Active Rani Clemons AUT[employer]SETTER MECHANIC, AUT[employer]SETTER MECH[employer]IC-C Attending Provider, Referrin g Provider Active Team [...] Inactive Member Role Status Dates Dr. Nellie Rmoe MD Primary Care Provider Active Start: March [...] 2024 End: May 28, 2024 Rani Clemons NP [employer]TER [employer]CH[employer]IC-C Attending Provider Active Start: May 28, 2024 [...] 2024 End: May 28, 2024 Rani Clemons AUTOMAT[employer]SETTER MECHANIC, AUTOM[employer]SETTER MECH[employer]IC-C Attending Provider Active Start: May 28, 2024 [...] Active Start: October 07, 2024 Dr. Jeremiah Farnco MD Other Provider Active St art: October [...] November 17, 2024 End: November 17, 2024 Team Status: Active Member Role/Relationship Status Dates Dr. Nellie Rome MD Primary care physician Active Team Status: Inactive Member Role/Relationship Status Dates Dr. Nellie Rome MD Primary care physician Active Start: August 25, 2024 End: August 25, 2024 Dr. Nellie Rome MD Attending physician Active Start: August 25, 2024 End: August 25, 2024 Dr. Nellie Rome MD Referring Provider Active Start: August 25, 2024 End: August 25, 2024 Team Status: Inactive Member Role/Relationship Status Dates Dr. Nellie Rome MD Primary care physician Active Start: August 29, 2024 End: August 29, 2024 Dr. Nellie Rome MD Attending physician Active Start: August 29, 2024 End: August 29, 2024 Dr. Nellie Rome MD Referring Provider Active Start: August 29, 2024 End: August 29, 2024 Team Status: Inactive Member Role/Relationship Status Dates Dr. Nellie Rome MD Primary care physician Active Start: September 15, 2024 End: September 15, 2024 Dr. Nellie Rome MD Referring Provider Active Start: September 15, 2024 End: September 15, 2024 Dr. Jeremiah Franco MD Attending physician Active Start: September 15, 2024 End: September 15, 2024 Team Status: Inactive Member Role/Relationship Status Dates Dr. Nellie Rome MD Primary care physician Active Start: September 15, 2024 End: September 15, 2024 Dr. Jeremiah Franco MD Attending physician Active Start: September 15, 2024 End: September 15, 2024 Dr. Jeremiah Franco MD Referring Provider Active Start: September 15, 2024 End: September 15, 2024 Team Status: Inactive Member Role/Relationship Status Dates Dr. Nellie Rome MD Primary care physician Active Start: September 26, 2024 End: September 26, 2024 Dr. Nellie Rome MD Referring Provider Active Start: September 26, 2024 End: September 26, 2024 Dr. Jeremiah Franco MD Attending physician Active Start: September 26, 2024 End: September 26, 2024 Team Status: Inactive Member Role/Relationship Status Dates Dr. Nellie Rome MD Primary care physician Active Start: October 01, 2024 End: October 01, 2024 Dr. Nellie Rome MD Referring Provider Active Start: October 01, 2024 End: October 01, 2024 Dr. Jeremiah Franco MD Attending physician Active Start: October 01, 2024 End: October 01, 2024 Team Status: Inactive Member Role/Relationship Status Dates Dr. Nellie Rome MD Primary care physician Active Start: October 07, 2024 End: October 07, 2024 Dr. Jeremiah Franco MD Attending physician Active Start: October 07, 2024 End: October 07, 2024 Dr. Jeremiah Franco MD Referring Provider Active Start: October 07, 2024 End: October 07, 2024 Team Status: Active Member Role/Relationship Status Dates Dr. Nellie Rome MD Primary care physician Active Start: October 07, 2024 Dr. Jeremiah Franco MD Attending physician Active Start: October 07, 2024 Dr. Jeremiah Franco MD Referring Provider Active Start: October 07, 2024 Dr. Jeremiah Franco MD Nurse Practitioner Active Start: October 07, 2024 Team Status: Inactive Member Role/Relationship Status Dates Dr. Nellie Rome MD Primary care physician Active Start: October 14, 2024 End: October 14, 2024 Dr. Nellie Rome MD Referring Provider Active Start: October 14, 2024 End: October 14, 2024 Dr. Jeremiah Franco MD Attending physician Active Start: October 14, 2024 End: October 14, 2024 Team Status: Inactive Member Role/Relationship Status Dates Dr. Nellie Rome MD Primary care physician Active Start: October 20, 2024 End: October 20, 2024 Dr. Nellie Rome MD Attending physician Active Start: October 20, 2024 End: October 20, 2024 Dr. Nellie Rome MD Referring Provider Active Start: October 20, 2024 End: October 20, 2024 Team Status: Inactive Member Role/Relationship Status Dates Dr. Nellie Rome MD Primary care physician Active Start: October 30, 2024 End: October 30, 2024 Dr. Nellie Rome MD Referring Provider Active Start: October 30, 2024 End: October 30, 2024 Dr. Jeremiah Franco MD Attending physician Active Start: October 30, 2024 End: October 30, 2024 Team Status: Inactive Member Role/Relationship Status Dates Dr. Nellie Rome MD Primary care physician Active Start: November 11, 2024 End: November 11, 2024 Dr. Harrison Schneider MD Attending physician Active Start: November 11, 2024 End: November 11, 2024 Dr. Jeremiah Franco MD Referring Provider Active Start: November 11, 2024 End: November 11, 2024 Team Status: Inactive Member Role/Relationship Status Dates Dr. Nellie Rome MD Primary care physician Active Start: November 17, 2024 End: November 17, 2024 Dr. Nellie Rome MD Referring Provider Active Start: November 17, 2024 End: November 17, 2024 Dr. Marcos Givens DO Attending physician Active Start: November 17, 2024 End: November 17, 2024 Team Status: Inactive Member Role/Relationship Status Dates Dr. Nellie Rome MD Primary care physician Active Start: November 21, 2024 End: November 21, 2024 Dr. Harrison Schneider MD Attending physician Active Start: November 21, 2024 End: November 21, 2024 Dr. Harrison Schneider MD Referring Provider Active Start: November 21, 2024 End: November 21, 2024 Team Status: Active Member Role/Relationship Status Dates Dr. Nellie Rome MD Primary care physician Active Start: November 21, 2024 Dr. Marcos Givens DO Attending physician Active Start: November 21, 2024 Dr. Harrison Schneider MD Referring Provider Active Start: November 21, 2024 Team Status: Inactive Member Role/Relationship Status Dates Dr. Nellie Rome MD Primary care physician Active Start: November 24, 2024 End: November 24, 2024 Dr. Harrison Schneider MD Attending physician Active Start: November 24, 2024 End: November 24, 2024 Dr. Harrison Schneider MD Referring Provider Active Start: November 24, 2024 End: November 24, 2024 Team Status: Inactive Member Role/Relationship Status Dates Dr. Nellie Rome MD Primary care physician Active Start: November 27, 2024 End: November 27, 2024 Dr. Nellie Rome MD Referring Provider Active Start: November 27, 2024 End: November 27, 2024 Dr. Harrison Schneider MD Attending physician Active Start: November 27, 2024 End: November 27, 2024 Team Status: Inactive Member Role/Relationship Status Dates Dr. Nellie Rome MD Primary care physician Active Start: December 02, 2024 End: December 02, 2024 Dr. Nellie Rome MD Referring Provider Active Start: December 02, 2024 End: December 02, 2024 Maggi Archuleta AUTOMATIC PINSETTER MECHANIC, AUTOMATIC PINSETTER MECHANIC-C Attending physician Active Start: December 02, 2024 End: December 02, 2024 Team Status: Inactive Member Role/Relationship Status Dates Dr. Nellie Rome MD Primary care physician Active Start: December 08, 2024 End: December 08, 2024 Dr. Nellie Rome MD Referring Provider Active Start: December 08, 2024 End: December 08, 2024 Dr. Jeremiah Franco MD Attending physician Active Start: December 08, 2024 End: December 08, 2024 INFORMATION SOURCE (unrecogn ized section and content) DATE CREATED AUTHOR 09/29/2024 [facility] DATE CREATED AUTHOR AUTHOR'S ORGANIZ ATION 12/12/2024 [facility] FOR RECORDS PERTAINING TO PATIENTS WHO ARE [...] BE BASED ON THE PRIMARY CLINICAL RECORDS. [employer] provides no warranty or guarantee of the accuracy or completeness of information in this document.
[2024-12-15] MEDS: Lactated Ringers 1,000 ML 15 ML IV (06:56)
--- NOTE | 2024-12-15 07:12 | PRE.ANES_ITS ---
ASA Classification* ASA Classification ASA Classification: 3 Assessment & Plan Anesthesia* Anesthesia Assessment Anesthesia Assessment: Discussed sedation and/or anesthesia options, risks, benefits, and alternatives with patient/parents/legal guardian/POA. Questions invited. The patient/parents/legal guardian/POA seems to understand and agrees to proceed with anesthesia plan. Reviewed the physical assessment, medical history, allergy history and patient home medications list prior to surgery/procedure/anesthetic and documented any changes. Performed airway and anesthesia risk assessments. Anesthesia Type Anesthesia Type: MAC History Source History Obtained from:: Patient and Chart Anesthesia Focused Assessment* Temperature: 97.5 F Pulse Rate: 55 Blood Pressure: 154/72 Respiratory Rate: 16 Pulse Ox: 96 Oxygen Delivery Method: Room Air Airway Assessment Mouth opens: >3 cm Mallampati Score: III Teeth Condition: Missing (Patient has 1 missing tooth. Rest are tight.) Neck Range of motion (ROM): Full ROM Labs Anesthesia Preop lab: CBC WBC, (4.4-11.0) 9.0 K/mm3 11/11/24, 13:01 RBC, (4.2-5.4) 4.84 M/mm3 11/11/24, 13:01 Hgb, (12.0-15.0) 13.8 g/dL 11/11/24, 13:01 Hct, (37-47) 40.9 % 11/11/24, 13:01 Plt Count, (150-450) 355 K/mm3 11/11/24, 13:01 CHEMISTRY Potassium, (3.3-5.1) 4.0 mmol/L 11/11/24, 13:01 Sodium, (133-145) 139 mmol/L 11/11/24, 13:01 Magnesium, (1.6-2.6) 2.0 mg/dL 10/06/21, 11:44 BUN, (4-19) 20 mg/dL H 11/11/24, 13:01 Creatinine, (0.70-1.20) 1.02 mg/dL 11/11/24, 13:01 Glucose, (70-99) 94 mg/dL 11/11/24, 13:01 POC Glucose, (74-106) 131 mg/dL H 10/12/21, 11:17 TSH, (0.358-3.740) 0.631 uIU/mL 02/19/24, 13:17 COAG PT, (11.7-14.9) 13.7 SECONDS 10/06/21, 11:44 Pre-Assessment Diagnosis/Proposed Procedure Planned Operative Procedure(s): INSERTION VASCULAR PORT LEFT POSS RIGHT Anesthesia History 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 When Was Last Pacemaker Check QUESTION #4 FULL TEXT: You/Your Family Experience fever (hyperthermia) with Anesthesia Last Oral Intake Last Oral intake: Last Oral Intake NPO since 23:00 12/15/24 06:38 Meds taken in AM with sips of No 12/15/24 06:38 water? 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 Female Yes 12/11/24 14:21 HX of Motion Sickness Yes 12/11/24 14:21 HX of N/V After Surgery Yes 12/11/24 14:21 Non-Smoker Yes 12/11/24 14:21 Duration of Surgery greater No 12/11/24 14:21 than 60 minutes Number of Risk Factors 4 12/11/24 14:21 PONV Score Severe Risk 12/11/24 14:21 Height & Weight Height & Weight: Anesthesia: Height & Weight Height 5 ft 3 in 12/15/24 06:38 Weight: 94 kg 12/15/24 06:38 Body Mass Index (BMI) 36.7 12/15/24 06:38 Respiratory Assessment Respiratory Assessment - roof bolting coal miner: Respiratory Tract Infection Hx - roof bolting coal miner Hx Respiratory Tract Infection No 12/11/24 14:21 STOP Sleep Apnea STOP Sleep Apnea - roof bolting coal miner: STOP Sleep Apnea - roof bolting coal miner Hx Hypertension Yes: CONTROLLED WITH MEDS 12/11/24 14:21 Hx Sleep Apnea Yes 12/11/24 14:21 CPAP Yes 12/11/24 14:21 BIPAP No 12/11/24 14:21 Do you snore loudly (louder than talking or can be heard Do you often feel tired/ fatigued/ sleepy during daytime? Has anyone observed you stop breathing during sleep? STOP Results Positive 12/11/24 14:21 QUESTION #5 FULL TEXT : Do you snore loudly (louder than talking or can be heard through closed doors)? 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 Specify any problems Hx of Preganancy in last 3 No 12/11/24 14:21 Months Nurse Filling Out Transfusion DSCHRIBER 12/11/24 14:21 & Questions: Date: 12/11/24 12/11/24 14:21 Time: 14:23 12/11/24 14:21 Patient unable to answer at this time (ie. confused, unrespo /Reproduction History /Reproductive History - roof bolting coal miner: /Reproductive Hx- roof bolting coal miner Hx Now No 12/11/24 14:21 Gestational Age (in weeks): EDC: Hx Hx Para Hx Section SAB No 12/11/24 14:21 Active Medications Active Medications: Current Medications Generic Name Dose Route Start Last Admin Trade Name Freq PRN Reason Stop Dose Admin Cefazolin Sodium 2 gm/ Sodium 110 mls @ 200 mls/hr 12/15/24 07:30 Chloride IV 12/15/24 08:02 INTRAOP ONE Lactated Ringer's 1,000 mls @ 15 mls/hr 12/15/24 06:30 12/15/24 06:56 IV 15 mls/hr .Q48H LAKISHA Administration PFSH Medical History Encounter for education Regional lymph node metastasis present Cancer of kidney Oral thrush History of echocardiogram Fibromyalgia Abnormal ultrasound of breast Abnormal mammogram Mass Cancer Syncope Stool bloody Gastric reflux Chest pain Abdominal pain Diverticulitis Wears glasses Anxiety Thyroid disease Arthritis Back pain History of diverticulitis Non-smoker CPAP (continuous positive airway pressure) dependence Shortness of breath on exertion History of pain when walking Nodular thyroid disease Hemorrhoids Hypertension Home Medications ?Medication ?Instructions ?Recorded ?Last Taken ?Type omega-3 fatty acids 1,000 mg 2,000 mg PO QDAY SUPPLEME NT 06/26/17 10/06/24 History capsule (Fish Oil Concentrate) acetaminophen 325 mg tablet 650 mg PO Q4H PRN Pain Unknown History (Tylenol) magnesium citrate 125 mg capsule 250 mg PO DAILY 05/2210/06/24 History cholecalciferol (vitamin D3) 25 25 mcg PO QDAY 5 10/06/24 History mcg (1,000 unit) capsule [id number] 8 mg-folic 400 1 tab PO QDAY 10/06/24 History mcg-K 50 mcg-lutein 300 mcg tablet (Multivitamin Women 50 Plus) lisinopril 20 mg tablet 20 mg PO QDAY 11/11/24 Unkno wn History dexamethasone 4 mg tablet 8 mg (2 x 4 mg) PO .COMPLEX #12 12/05/24 Unknown Rx tabs lidocaine-prilocaine 2.5 %-2.5 % 1 applic topical ONCE PRN port 12/05/24 Unknown Rx topical cream access 30 days #30 grams ondansetron 8 mg disintegrating 8 mg PO Q8H PRN nausea and 12/05/24 Unknown Rx tablet vomiting #30 tabs prochlorperazine maleate 10 mg 10 mg PO Q6H PRN nausea and 12/05/24 Unknown Rx tablet vomiting #30 tabs Allergy/AdvReac Type Severity Reaction Status Date / Time acetazolamide (From Diamox AdvReac DEPRESSION Verified 12/15/24 06:36 Sequels) duloxetine (From Cymbalta) AdvReac DEPRESSION Verified 12/15/24 06:36 tetracycline AdvReac DEPRESSION Verified 12/15/24 06:36 Family History Mother Colon cancer Hypertension Cancer pancreatic Father Diabetes Sister Cancer lymphoma Surgical History Hx of breast surgery S/P lumpectomy, right breast H/O lumpectomy History of cholecystectomy History of colectomy History of esophagogastroduodenoscopy (EGD) History of nephrectomy, right Hx of colonoscopy S/P thyroid biopsy history excision right breast lump Social History household members: spouse housing: house Smoking Status: Never smoker alcohol intake: never substance use type: does not use Review of Systems (Anesthesia) ROS Narrative System reviewed and no additional complaints, except as documented.
--- NOTE | 2024-12-15 07:25 | PCM.HP.STD ---
HPI - General General Date of Admission: 12/15/24 Date of Service: 12/15/24 Chief Complaint: Breast cancer HPI Narrative ROMAN RODRIGUEZ, is a 69 F who presents for elective Mediport placement [facility] Medical History Encounter for education Regional lymph node metastasis present Cancer of kidney Oral thrush History of echocardiogram Fibromyalgia Abnormal ultrasound of breast Abnormal mammogram Mass Cancer Syncope Stool bloody Gastric reflux Chest pain Abdominal pain Diverticulitis Wears glasses Anxiety Thyroid disease Arthritis Back pain History of diverticulitis Non-smoker CPAP (continuous positive airway pressure) dependence Shortness of breath on exertion History of pain when walking Nodular thyroid disease Hemorrhoids Hypertension Home Medications ?Medication ?Instructions ?Recorded ?Last Taken ?Type omega-3 fatty acids 1,000 mg 2,000 mg PO QDAY SUPPLEMENT 06/26/17 10/06/24 History capsule (Fish Oil Concentrate) acetaminophen 325 mg tablet 650 mg PO Q4H PRN Pain 02/02/21 Unknown History (Tylenol) magnesium citrate 125 mg capsule 250 mg PO DAILY 05/23/23 10/06/24 History cholecalciferol (vitamin D3) 25 25 mcg PO QDAY 09/26/24 10/06/24 History mcg (1,000 unit) capsule [id number] 8 mg-folic 400 1 tab PO QDAY 09/26/24 10/06/24 History mcg-K 50 mcg-lutein 300 mcg tablet (Multivitamin Women 50 Plus) lisinopril 20 mg tablet 20 mg PO QDAY 11/11/24 Unknown History dexamethasone 4 mg tablet 8 mg (2 x 4 mg) PO .COMPLEX #12 12/05/24 Unknown Rx tabs lidocaine-prilocaine 2.5 %-2.5 % 1 applic topical ONCE PRN port 12/05/24 Unknown Rx topical cream access 30 days #30 grams ondansetron 8 mg disintegrating 8 mg PO Q8H PRN nausea and 12/05/24 Unknown Rx tablet vomiting #30 tabs prochlorperazine maleate 10 mg 10 mg PO Q6H PRN nausea and 12/05/24 Unknown Rx tablet vomiting #30 tabs Allergy/AdvReac Type Severity Reaction Status Date / Time acetazolamide (From Diamox AdvReac DEPRESSION Verified 12/15/24 06:36 Sequels) duloxetine (From Cymbalta) AdvReac DEPRESSION Verified 12/15/24 06:36 tetracycline AdvReac DEPRESSION Verified 12/15/24 06:36 Family History Mother Colon cancer Hypertension Cancer pancreatic Father Diabetes Sister Cancer lymphoma Surgical History Hx of breast surgery S/P lumpectomy, right breast H/O lumpectomy History of cholecystectomy History of colectomy History of esophagogastroduodenoscopy (EGD) History of nephrectomy, right Hx of colonoscopy S/P thyroid biopsy history excision right breast lump Social History household members: spouse housing: house Smoking Status: Never smoker alcohol intake: never substance use type: does not use Vital Signs Vital Signs Vital Signs: 12/15/24 06:38 12/15/24 06:38 12/15/24 07:18 Temperature 97.5 F L 97.5 F L Temperature Source Temporal Pulse Rate 55 L 55 L Respiratory Rate 16 16 Respiratory Pattern Normal Blood Pressure 154/72 H 154/72 H Blood Pressure Mean 99 Blood Pressure Source Monitor Blood Pressure Position Semi-Fowlers Blood Pressure Location Left Arm Pulse Ox 96 96 Oxygen Delivery Method Room Air Room Air Weight Weight: 207 lb 3.752 oz Body Mass Index (BMI) 36.7 Physical Exam Const alert, oriented x3 and no apparent distress Assessment & Plan Assessment/Plan (1) Breast cancer, right breast: QUALIFIERS: Breast location: central portion of breast Estrogen receptor status: positive Patient sex: female Qualified Code(s): C50.111 - Malignant neoplasm of central portion of right female breast; Z17.0 - Estrogen receptor positive status [ER+] PLAN: Plan The patient is a 69-year-old female with a history of right-sided breast cancer. She presents today for left-sided Mediport placement. We discussed the details of the planned procedure and she wishes to proceed. This will begin momentarily
[2024-12-15] MEDS: Midazolam 2 MG/2 ML Syringe IV (07:34)
[2024-12-15] MEDS: Cefazolin 1 GM/5 ML Vial 2 GM IV (07:35)
[2024-12-15] MEDS: Lidocaine 1% (5 ml sdv) 5 ML Vial IV (07:36)
[2024-12-15] MEDS: Lidocaine 1% /Epi 1:100 (50ml) 50 ML VIAL (08:00)
--- NOTE | 2024-12-15 08:31 | EX.PCM.DISCH ---
Discharge Instructions Diet Discharge Diet: Light diet - advance as tolerated Activity Discharge Activity: Return to Normal Activity May shower in (days): 1 Ice area for (Minutes): 30 Dressing / Incision Call your doctor if your incision/area has: Continuous Slow Oozing, Sudden Increased Bleeding, Increased Pain/ Swelling, Increased Redness, Foul Smelling Discharge and Swelling at the incision site Call your doctor if you observe: Fever of 101 or Higher Remove Dressing in: 3 days Cleanse incision/area with: Soap & Water Follow Up Care Please Follow Up With: Jeremiah Franco MD When: As needed. Please call office if any questions or concerns arise Test Results: Test results from this visit will be discussed in further detail at your follow-up appointment, if applicable. Discharge Plan Admission Primary Reason for Your Visit: Port placement Attending Provider: Jeremiah Franco Primary Care Provider: Nellie Rome Instructions Print Language: Tuvaluan Discharge Orders/Prescriptions Prescriptions: New oxycodone 5 mg tablet 5 mg PO Q8H PRN (Reason: pain) 2 Days Qty: 6 0RF Continued omega-3 fatty acids [Fish Oil Concentrate] 1,000 mg capsule 2,000 mg PO QDAY magnesium citrate 125 mg capsule 250 mg PO DAILY cholecalciferol (vitamin D3) 25 mcg (1,000 unit) capsule 25 mcg PO QDAY Multivitamin Women 50 Plus 8 mg iron-400 mcg-50 mcg tablet 1 tab PO QDAY lisinopril 20 mg tablet 20 mg PO QDAY acetaminophen [Tylenol] 325 mg Tablet 650 mg PO Q4H PRN (Reason: Pain) prochlorperazine maleate 10 mg tablet 10 mg PO Q6H PRN (Reason: nausea and vomiting) Qty: 30 2RF ondansetron 8 mg tablet,disintegrating 8 mg PO Q8H PRN (Reason: nausea and vomiting) Qty: 30 2RF lidocaine-prilocaine 2.5-2.5 % cream 1 applic topical ONCE PRN (Reason: port access) 30 Days Qty: 30 2RF dexamethasone 4 mg tablet 8 mg PO .COMPLEX Qty: 12 3RF Rx Instructions: 8 mg orally twice daily ONLY the day before, the day of, and the day after chemotherapy Referrals / Follow Up: Nellie Rome MD [Primary Care Provider, Family Practice] Disposition Disposition (needs filled in before D/C Order can be placed): Home, Self Care
--- NOTE | 2024-12-15 08:35 | PCM.POST.ANE ---
Anesthesia: Postop Eval I Current Vital Signs Temperature: 97.7 F Pulse Rate: 61 Blood Pressure: 132/90 Respiratory Rate: 16 Pulse Ox: 95 Oxygen Delivery Method: Room Air Assessment Airway patent: Yes Spontaneous unlabored respirations: Yes Mental status: Awake and Calm nausea: No Vomiting: No Anesthesia Complication: No Fluid Hydration Crystalloid volume administer (ml): 800 Total IV fluid infused: 800 Progress Note Anesthesia document: Postop Eval 1 completed: Yes
--- NOTE | 2024-12-15 08:40 | RAD_ITS ---
PROCEDURE: CHEST 1 VIEW (PORTABLE) 12/15/2024 REASON FOR EXAM: POST PORT INSERTION TECHNIQUE: Frontal view of the chest. COMPARISON: Prior study dated November 13, 2023. FINDINGS: Hardware: A left-sided port a catheter has been placed. The tip is in the proximal portion of the superior vena cava. Heart: Heart size upper limits of normal. Lungs: The lungs are clear. Bones: Degenerative changes are identified within the thoracic spine. RAD/Chest 1 View (Portable) IMPRESSION: The tip of the left-sided port a catheter is in the proximal portion of the sup erior vena cava. The lungs are clear. Reading Location: [facility]
--- NOTE | 2024-12-15 09:19 | PCM.OPRPT ---
Procedures Cardiovascular CF Procedures [id number]: [id number] Insert tunneled cv cath Operative Report (Standard) Operative Information Date of Procedure: 12/15/24 Pre-Operative Diagnosis: Right breast cancer Post-Operative Diagnosis: Same Surgery/Procedure Performed: Left subclavian Mediport placement with C arm change management consultant: No Type of Anesthesia: Local and MAC RN Documented Start/Stop Times: Operation Date: 12/15/24 07:30 Case Time Into Pre-Op 12/15/24 06:15 Out of Pre-Op 12/15/24 07:26 Anesthesia Start 12/15/24 07:30 Into Room 12/15/24 07:30 Procedure Start 12/15/24 07:54 Procedure End 12/15/24 08:25 Anesthesia End 12/15/24 08:28 Out of Room 12/15/24 08:28 Into Recovery 12/15/24 08:30 Into Phase II Recovery 12/15/24 08:48 Out of Recovery 12/15/24 08:48 Procedure Start Time: 07:54 Procedure Stop Time: 08:25 Select all DRAINS/GRAFTS/IMPLANTS that apply: Prosthetic device Prosthetic device details: 8 [place] Mediport Special Medications: 2 g Ancef IV preop Estimated Blood Loss: 5 mL Specimen collected: No Description of surgery: The patient is a 69-year-old female recently discovered to have right breast cancer. She was treated with lumpectomy and sentinel lymph node biopsy. She was recommended to undergo chemotherapy and radiation therapy. As result a Mediport placement was recommended. We discussed this procedure in the office. We discussed the details of the planned procedure including the risks benefits and alternatives. She wished to proceed. She was brought to the operating room today following informed consent. Preoperative antibiotics were given and a timeout was performed. She is placed supine on the operative table with arms outstretched and arm boards. A MAC anesthesia was then induced. Her arms were then tucked at her sides. An axillary roll was placed behind the shoulders. The chest and neck regions were prepped and draped in the usual sterile manner. The left periclavicular area was then injected with local anesthetic. Using the supplied needle and syringe, the left subclavian vein was able to be accessed on the second pass. The blood return was a dark red, nonpulsatile, venous appearing blood return. The supplied guidewire was then threaded through the aperture and the needle. The guidewire was then secured to the drapes using a curved hemostat. A C-arm was then brought onto the operative field to confirm appropriate positioning of the guidewire. Next, local anesthetic was injected into the left upper chest region at the site of the planned port subcutaneous pocket. #15 blade was then used to make the skin incision. Bovie electrocautery was then used dissect down through the subcutaneous tissues. A subcutaneous pocket was then created. #15 blade was also used to make a small skin incision at the entry point of the guidewire. The tubing was connected to the tunneling device. This was tunneled into the larger incision and up and out through the smaller incision. This was trimmed to about 23 centimeters. The tubing was attached to the port hub. The hub was then affixed to the underlying chest wall using Prolene suture x 2. The dilator and tear-away sheath were then threaded over the guidewire and advanced under fluoroscopy. The guidewire was then removed along with the dilator, thus leaving the sheath in place. Position again was confirmed with C arm. The free end of the tubing was then threaded down the sheath, and the sheath was then extracted. The port was then tested with injectable saline. It du and flushed easily. C-arm was brought in again to confirm good positioning of the tip of the catheter and also to confirm that there were no acute kinks or bends in the tubing itself. There were none. The port was then flushed with heparin solution. It again du and flushed easily. The incisions were then closed using 3-0 Vicryl and 4-0 Vicryl. Skin glue was applied as dressing. Once the glue was dry, a sterile 2 x 2 and a large OpSite were then applied. The patient was then awakened from anesthesia. A postprocedure x-ray was performed. No obvious pneumothorax was noted and the tubing appeared to be in good position. Surgical Findings: See procedure note Complications Complications: No Admit VTE Documentation VTE Present on Admission: No VTE Mechan Device Prophylaxis: SCD's VTE Pharm Prophylaxis ordered?: No Reason prophylaxis not ordered: Treatment Not Indicated
--- NOTE | 2024-12-15 12:35 | POSTOPAN2_ITS ---
Anesthesia Postop Eval I Sum Postop Eval Completion status Anesthesia document: Postop Eval 1 completed: Yes Anesthesia Postop Eval I Summary Anesthesia Postop Eval I Summary: Anesthesia Postop Eval I: Assessment Summary Airway patent Yes 12/15/24 08:36 FUEL MANAGEMENT HANDLER.JDEF Spontaneous unlabored Yes 12/15/24 08:36 FUEL MANAGEMENT HANDLER.JDEF respirations Mental status Awake,Calm 12/15/24 08:36 FUEL MANAGEMENT HANDLER.JDEF nausea No 12/15/24 08:36 FUEL MANAGEMENT HANDLER.JDEF Vomiting No 12/15/24 08:36 FUEL MANAGEMENT HANDLER.JDEF Anesthesia Postop Eval I: Fluid Summary Crystalloid volume administer 800 12/15/24 08:36 FUEL MANAGEMENT HANDLER.JDEF (ml) Colloids volume administered ( ml) Blood Product volume administered (ml) Total IV fluid infused 800 12/15/24 08:36 FUEL MANAGEMENT HANDLER.JDEF Anesthesia Postop Eval I: Summary Notes Anesthesia Complication No 12/15/24 08:36 FUEL MANAGEMENT HANDLER.JDEF Anesthesia Complication Comment: Post-operative progress note Anesthesia: Postop Eval II Evaluation Mental status: Awake and Calm Pain Level: 0 nausea: No Vomiting: No Complications Anesthesia Complication: No
--- NOTE | 2024-12-15 12:35 | PCM.POSTANE2 ---
Anesthesia Postop Eval I Sum Postop Eval Completion status Anesthesia document: Postop Eval 1 completed: Yes Anesthesia Postop Eval I Summary Anesthesia Postop Eval I Summary: Anesthesia Postop Eval I: Assessment Summary Airway patent Yes 12/15/24 08:36 DRESSAGE INSTRUCTOR.JDEF Spontaneous unlabored Yes 12/15/24 08:36 DRESSAGE INSTRUCTOR.JDEF respirations Mental status Awake,Calm 12/15/24 08:36 DRESSAGE INSTRUCTOR.JDEF nausea No 12/15/24 08:36 DRESSAGE INSTRUCTOR.JDEF Vomiting No 12/15/24 08:36 DRESSAGE INSTRUCTOR.JDEF Anesthesia Postop Eval I: Fluid Summary Crystalloid volume administer 800 12/15/24 08:36 DRESSAGE INSTRUCTOR.JDEF (ml) Colloids volume administered ( ml) Blood Product volume administered (ml) Total IV fluid infused 800 12/15/24 08:36 DRESSAGE INSTRUCTOR.JDEF Anesthesia Postop Eval I: Summary Notes Anesthesia Complication No 12/15/24 08:36 DRESSAGE INSTRUCTOR.JDEF Anesthesia Complication Comment: Post-operative progress note Anesthesia: Postop Eval II Evaluation Mental status: Awake and Calm Pain Level: 0 nausea: No Vomiting: No Complications Anesthesia Complication: No
== END 2024-12-15 10:30 | disposition home or self-care (01) ==
LOC: SDC 06:04 → AC 06:05
PROVIDERS: PCP Family Medicine; Referring Provider Surgery; Visit Provider Surgery
PROC: (CPT 36561; principal; 2024-12-15 07:15)
DX: Z45.2 Encounter for adjustment and management of vascular access device (principal); C50.111 Malignant neoplasm of central portion of right female breast; Z17.0 Estrogen receptor positive status [ER+]; I10 Essential (primary) hypertension; K21.9 Gastro-esophageal reflux disease without esophagitis
CPT/HCPCS: 36561; 00532; 71045; 77001; C1788; J2405